=== PATIENT | female | born 1985 | race Caucasian/White ===

== ENCOUNTER 2022-07-05 22:44 | Emergency (ER) | payer MEDICAID, SELFPAY ==
[2022-07-05 22:52] VITALS: BP 136/92; PULSE 85; RESP 16; TEMP 36.9; O2SAT 98; BMI 34.4
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
[2022-07-06] MEDS: LORazepam 2 MG/ML inj 0.5 MG IVP (00:33)
[2022-07-06] MEDS: KETOROLAC 15 MG/ML inj IVP (00:34)
[2022-07-06] MEDS: 0.9 % SODIUM CHLORIDE 1000 ml 1,000 ML IV (00:34)
[2022-07-06 00:36] LABS: Basophils Percent Auto 0.6 % (0.0-3.0); Eosinophils Percent Auto 2.2 % (0.0-7.0); Hemoglobin* 12.7 gm/dL (12.0-16.0); Immature Granulocytes Abs Auto 0.08 K/uL (0.00-0.30); Lymphocytes Percent Auto 32.7 % (20-44); Mean Corpuscular HGB Conc 32 gm/dL (32-36); Mean Corpuscular Hemoglobin 28 pg (26-34); Mean Corpuscular Volume 87 fL (80-100); Monocytes Percent Auto 7.5 % (0.0-11.0); Neutrophils Percent Auto 56.4 % (42.0-72.0); Platelet Count* 356 K/uL (140-440); RDW Coefficient of Variation % 13.1 % (11.5-15.5); Red Blood Count 4.58 m/uL (4.00-5.20); White Blood Count* 12.39 K/uL (4.50-11.00)
[2022-07-06 00:37] LABS: Appearance Urine Clear (Clear); Bilirubin Urine Negative (Negative); Blood Urine Negative (Negative); Color Urine Yellow (Yellow); Glucose Urine Negative (Negative); Ketones Urine Negative (Negative); Leukocyte Esterase Urine Negative (Negative); Nitrite Urine Negative (Negative); Protein Urine Negative (Negative); Urobilinogen Urine 0.2 (0.2-1.0); pH Urine 6.5 (5.0-8.5)
[2022-07-06 00:38] LABS: Slide Review Reflex No
[2022-07-06 00:45] LABS: Chloride* 103 mmol/L (96-114); Sodium* 140 mmol/L (135-149)
[2022-07-06 00:48] LABS: Blood Urea Nitrogen* 10 mg/dL (5-24); Calcium* 9.5 mg/dL (8.4-10.6); Carbon Dioxide* 28 mmol/L (20-32); Creatinine* 0.7 mg/dL (0.5-1.5); Est. Creatinine Clearance* 104.01; Estimated Glomerular Filt Rate 115 ml/min; Glucose* 94 mg/dL (60-115)
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
[2022-07-06 02:10] LABS: Albumin* 4.2 g/dL (3.3-5.0); Bilirubin Total* 0.1 mg/dL (0.1-1.5); Total Protein* 7.2 g/dL (6.0-8.3)
[2022-07-06 02:11] LABS: Alanine Aminotransferase* 25 U/L (4-35); Alkaline Phosphatase* 85 U/L (40-150); Amylase* 49 U/L (18-89); Aspartate Amino Transferase* 33 U/L (12-35); Bilirubin Direct* 0.1 mg/dL (0.0-0.5); Lipase* 52 U/L (23-300)
[2022-07-06 03:02] VITALS: BP 128/88; PULSE 85; RESP 16; TEMP 36.9
== END 2022-07-06 03:03 | disposition home or self-care (01) ==
PROVIDERS: Emergency Provider Family Medicine; PCP Family Medicine
DX: R07.81 Pleurodynia (principal); K86.2 Cyst of pancreas; K80.20 Calculus of gallbladder without cholecystitis without obstruction
CPT/HCPCS: 36415; 71260; 74177; 80048; 80076; 81003; 82150; 83690; 85025; 96374; 96375; 99284; J1885; J2060; J7030; Q9967

== ENCOUNTER 2022-08-02 10:27 | Emergency (ER) | payer MEDICAID, SELFPAY ==
[2022-08-02 10:32] VITALS: BP 124/80; PULSE 81; RESP 18; TEMP 36.6; O2SAT 100; BMI 34.1
--- NOTE | 2022-08-02 11:19 | ED.NURSE ---
pt updated in waiting room
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
[2022-08-02] MEDS: 0.9 % SODIUM CHLORIDE 1000 ml 1,000 ML IV (13:11)
[2022-08-02 13:32] LABS: Albumin* 4.7 g/dL (3.3-5.0)
[2022-08-02 13:35] LABS: Alkaline Phosphatase* 79 U/L (40-150); Aspartate Amino Transferase* 29 U/L (12-35); Bilirubin Direct* 0.2 mg/dL (0.0-0.5); Bilirubin Total* 0.4 mg/dL (0.1-1.5); Lipase* 38 U/L (23-300); Total Protein* 7.6 g/dL (6.0-8.3)
[2022-08-02 13:36] LABS: Alanine Aminotransferase* 21 U/L (4-35)
[2022-08-02 13:41] LABS: Basophils Percent Auto 0.4 % (0.0-3.0); Eosinophils Percent Auto 0.5 % (0.0-7.0); Hematocrit 41.2 % (33.0-51.0); Hemoglobin* 13.3 gm/dL (12.0-16.0); Immature Granulocytes Abs Auto 0.02 K/uL (0.00-0.30); Lymphocytes Percent Auto 16.3 % (20-44); Mean Corpuscular HGB Conc 32 gm/dL (32-36); Mean Corpuscular Hemoglobin 28 pg (26-34); Mean Corpuscular Volume 86 fL (80-100); Monocytes Percent Auto 6.7 % (0.0-11.0); Neutrophils Percent Auto 75.9 % (42.0-72.0); Platelet Count* 358 K/uL (140-440); RDW Coefficient of Variation % 13.6 % (11.5-15.5); Red Blood Count 4.77 m/uL (4.00-5.20); White Blood Count* 12.21 K/uL (4.50-11.00)
[2022-08-02 13:50] LABS: Slide Review Reflex No
[2022-08-02] MEDS: KETOROLAC 30 MG/ML inj IVP (13:55)
[2022-08-02] MEDS: HYDROmorphone 0.5 mg/0.5 ml inj IVP (13:57)
[2022-08-02 14:01] VITALS: BP 130/81
[2022-08-02 14:50] LABS: Chloride* 106 mmol/L (96-114); Potassium* 3.5 mmol/L (3.6-5.1); Sodium* 139 mmol/L (135-149)
[2022-08-02 14:53] LABS: Blood Urea Nitrogen* 10 mg/dL (5-24); Carbon Dioxide* 24 mmol/L (20-32); Creatinine* 0.7 mg/dL (0.5-1.5); Est. Creatinine Clearance* 104.01; Estimated Glomerular Filt Rate 115 ml/min; Glucose* 97 mg/dL (60-115)
[2022-08-02 14:54] LABS: Calcium* 9.5 mg/dL (8.4-10.6)
--- NOTE | 2022-08-05 09:12 | ED.NURSE ---
Pt calling and requesting a note to return work from Dr Zavala. Call was transferred to Dr Zavala per his OK.
== END 2022-08-02 14:56 | disposition home or self-care (01) ==
PROVIDERS: Emergency Provider Family Medicine
DX: S06.0X1A Concussion with loss of consciousness of 30 minutes or less, initial encounter (principal); S03.40XA Sprain of jaw, unspecified side, initial encounter; S00.83XA Contusion of other part of head, initial encounter; W01.0XXA Fall on same level from slipping, tripping and stumbling without subsequent striking against object, initial encounter; Y93.01 Activity, walking, marching and hiking; Y92.012 Bathroom of single-family (private) house as the place of occurrence of the external cause; Y99.9 Unspecified external cause status
CPT/HCPCS: 36415; 70450; 70486; 72125; 80048; 80076; 83690; 85025; 96361; 96374; 96375; 99283; 99284; J1170; J1885; J7030

== ENCOUNTER 2022-10-29 11:46 | Outpatient (CLI) | payer MEDICAID, SELFPAY ==
[2022-10-29 15:59] LABS: Chlamydia DNA Amplified* NOT DETECTED (No Detected); GC DNA Amplified* NOT DETECTED (No Detected)
== END 2022-10-29 11:47 | disposition home or self-care (01) ==
PROVIDERS: PCP Family Medicine; Visit Provider Registered Nurse
DX: N94.9 Unspecified condition associated with female genital organs and menstrual cycle
CPT/HCPCS: 87086; 87491; 87591

== ENCOUNTER 2023-02-08 15:25 | Emergency (ER) | payer MEDICAID, SELFPAY ==
[2023-02-08 15:51] VITALS: BP 124/82; PULSE 119; RESP 18; TEMP 36.9; O2SAT 99; BMI 34.5
[2023-02-08 17:08] LABS: Basophils Absolute Auto 0.06 K/uL (0.00-0.30); Basophils Percent Auto 0.8 % (0.0-3.0); Eosinophils Absolute Auto 0.11 K/uL (0.00-0.50); Eosinophils Percent Auto 1.4 % (0.0-7.0); Hematocrit 35.7 % (33.0-51.0); Hemoglobin* 10.4 gm/dL (12.0-16.0); Immature Granulocytes Abs Auto 0.01 K/uL (0.00-0.30); Immature Granulocytes Pct Auto 0.1 %; Lymphocytes Absolute Auto 1.85 K/uL (0.90-2.90); Lymphocytes Percent Auto 24.1 % (20-44); Mean Corpuscular HGB Conc 29 gm/dL (32-36); Mean Corpuscular Hemoglobin 23 pg (26-34); Mean Corpuscular Volume 78 fL (80-100); Neutrophils Absolute Auto 4.58 K/uL (1.7-7.0); Neutrophils Percent Auto 59.6 % (42.0-72.0); Platelet Count* 311 K/uL (140-440); RDW Coefficient of Variation % 14.2 % (11.5-15.5); Red Blood Count 4.59 m/uL (4.00-5.20); White Blood Count* 7.69 K/uL (4.50-11.00)
[2023-02-08] MEDS: 0.9 % SODIUM CHLORIDE 1000 ml 1,000 ML IV (17:08)
[2023-02-08] MEDS: ONDANSETRON 2 MG/ML inj 4 MG IVP (17:09)
[2023-02-08 17:10] LABS: Slide Review Reflex No
[2023-02-08] MEDS: KETOROLAC 30 MG/ML inj IVP (17:10)
[2023-02-08 17:20] LABS: Chloride* 106 mmol/L (96-114)
[2023-02-08 17:21] LABS: Albumin* 4.1 g/dL (3.3-5.0); Potassium* 3.9 mmol/L (3.6-5.1); Sodium* 139 mmol/L (135-149)
[2023-02-08 17:23] LABS: Creatinine* 0.7 mg/dL (0.5-1.5); Est. Creatinine Clearance* 103.01; Estimated Glomerular Filt Rate 114 ml/min
[2023-02-08 17:23] LABS: Lactate* 0.5 mmol/L (0.5-1.9)
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
[2023-02-08 17:24] LABS: Alanine Aminotransferase* 22 U/L (4-35); Alkaline Phosphatase* 63 U/L (40-150); Aspartate Amino Transferase* 24 U/L (12-35); Bilirubin Total* 0.3 mg/dL (0.1-1.5); Blood Urea Nitrogen* 14 mg/dL (5-24); Carbon Dioxide* 30 mmol/L (20-32); Glucose* 96 mg/dL (60-115)
[2023-02-08 17:25] LABS: Calcium* 9.4 mg/dL (8.4-10.6)
[2023-02-08 17:27] LABS: C Reactive Protein* 0.8 mg/dL (0.5-1.0)
[2023-02-08 17:38] LABS: Amylase* 56 U/L (18-89); Bilirubin Direct* 0.2 mg/dL (0.0-0.5); Lipase* 75 U/L (23-300)
[2023-02-08 17:58] LABS: PCR FLU A Negative PCR FLU A (Negative); PCR FLU B Negative PCR FLU B (Negative); PCR RSV Negative PCR RSV (Negative)
[2023-02-08 18:04] LABS: SARS PCR* Negative SARS-CoV-2 (Negative)
[2023-02-09 11:45] LABS: C.Difficile Negative (Negative); CDIFFEPI 027 PRESUMPTIVE NEGATIVE (Negative)
[2023-02-11 16:16] LABS: Adenovirus PCR Not Detected; Astrovirus PCR Detected; Campylobacter PCR Not Detected; Cryptosporidium PCR Not Detected; Cyclospora cayetanensis PCR Not Detected; Entamoeba histolytica PCR Not Detected; Enteroaggregative E coli PCR Not Detected; Enteropathogenic E coli PCR Not Detected; Enterotoxigenic E coli PCR Not Detected; Giardia lamblia PCR Not Detected; Norovirus Gi/GII PCR Not Detected; Plesiomonas shig PCR Not Detected; Rotavirus A PCR Not Detected; Salmonella PCR Not Detected; Sapovirus PCR Not Detected; Shiga toxin E coli PCR Not Detected; Shigella/Enteroinvasive E coli Not Detected; Vibrio PCR Not Detected; Vibrio cholerae PCR Not Detected; Yersinia enterocolitica PCR Not Detected
== END 2023-02-08 18:36 | disposition home or self-care (01) ==
PROVIDERS: Student in an Organized Health Care Education/Training Program; Emergency Provider Family Medicine; PCP Internal Medicine
DX: R10.9 Unspecified abdominal pain (principal); R19.7 Diarrhea, unspecified; R11.10 Vomiting, unspecified
CPT/HCPCS: 36415; 80048; 80053; 80076; 81001; 82150; 82248; 83605; 83690; 85025; 86140; 87493; 87502; 87505; 87634; 87635; 96374; 96375; 99283; 99284; J1885; J2405; J7030

== ENCOUNTER 2023-02-15 22:40 | Emergency (ER) | payer MEDICAID, SELFPAY ==
[2023-02-15] VITALS (8 sets, daily range): BP systolic 119–144; BP diastolic 68–89; PULSE 56–78; RESP 16–18; TEMP 36.6; O2SAT 97–100; BMI 34.7
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
[2023-02-15] MEDS: 0.9 % SODIUM CHLORIDE 1000 ml 1,000 ML IV (23:12)
[2023-02-15] MEDS: ONDANSETRON 2 MG/ML inj 4 MG IVP (23:13)
[2023-02-15] MEDS: HYDROmorphone 0.5 mg/0.5 ml inj IVP ×2 (23:13→23:42)
[2023-02-15 23:26] LABS: Basophils Percent Auto 0.6 % (0.0-3.0); Eosinophils Percent Auto 1.9 % (0.0-7.0); Hematocrit 35.8 % (33.0-51.0); Hemoglobin* 10.6 gm/dL (12.0-16.0); Immature Granulocytes Pct Auto 0.9 %; Lymphocytes Percent Auto 24.2 % (20-44); Mean Corpuscular HGB Conc 30 gm/dL (32-36); Mean Corpuscular Hemoglobin 23 pg (26-34); Mean Corpuscular Volume 77 fL (80-100); Neutrophils Percent Auto 65.4 % (42.0-72.0); Platelet Count* 342 K/uL (140-440); RDW Coefficient of Variation % 14.3 % (11.5-15.5); Red Blood Count 4.64 m/uL (4.00-5.20); White Blood Count* 11.06 K/uL (4.50-11.00)
[2023-02-15 23:30] LABS: Slide Review Reflex No
[2023-02-15 23:34] LABS: Albumin* 4.2 g/dL (3.3-5.0); Chloride* 106 mmol/L (96-114)
[2023-02-15 23:35] LABS: Potassium* 3.8 mmol/L (3.6-5.1); Sodium* 138 mmol/L (135-149)
--- NOTE | 2023-02-15 23:35 | ED.NURSE ---
Patient reports increased pain. MD notified.
[2023-02-15 23:37] LABS: Alkaline Phosphatase* 90 U/L (40-150); Aspartate Amino Transferase* 22 U/L (12-35); Bilirubin Total* 0.1 mg/dL (0.1-1.5); Blood Urea Nitrogen* 13 mg/dL (5-24); Carbon Dioxide* 27 mmol/L (20-32); Creatinine* 0.6 mg/dL (0.5-1.5); Est. Creatinine Clearance* 120.18; Estimated Glomerular Filt Rate 118 ml/min; Glucose* 129 mg/dL (60-115); Total Protein* 7.2 g/dL (6.0-8.3)
[2023-02-15 23:38] LABS: Alanine Aminotransferase* 20 U/L (4-35); Lipase* 91 U/L (23-300)
[2023-02-16] VITALS (10 sets, daily range): BP systolic 106–117; BP diastolic 54–73; PULSE 59–83; RESP 16; O2SAT 97–100
[2023-02-16] MEDS: GI COCKTAIL (VISC LIDO/ANTACID) 30 ML PO
[2023-02-16] MEDS: KETOROLAC 30 MG/ML inj IVP (00:02)
--- NOTE | 2023-02-16 00:08 | CRLHL7_ITS ---
For Patients: As a result of the Century Cures Act, medical imaging exams and procedure reports are released immediately into your electronic medical record. You may view this report before your referring provider. If you have questions, please contact your health care provider. INDICATION: Abdominal pain. TECHNIQUE: CT abdomen and pelvis acquired with 100 cc Isovue 370 IV contrast. COMPARISON: 07/06/2022. FINDINGS: Lower chest: Unremarkable. Liver: Unremarkable. Normal in size and attenuation. No suspicious masses. Gallbladder and bile ducts: Cholelithiasis. No inflammation. Mild dilation of the common bile duct measuring 9 mm. Spleen: Unremarkable. Normal in size. No masses. Adrenal glands: Stable 2 cm right adrenal nodule (series 2, image 45). Left adrenal gland is unremarkable. Pancreas: Coarse calcifications in the pancreatic tail. Decreased size of previously seen associated low density lesion. Kidneys: Left renal upper pole cortical scarring with dystrophic calcification, unchanged. No radiopaque stones or hydronephrosis. GI tract: Unremarkable. Normal in caliber. Appendix is surgically absent. Lymph nodes: No lymphadenopathy. Vasculature: Unremarkable. Omentum/Peritoneum/Abdominal Wall: Unremarkable. No sign of mass or infiltration. No free air or significant free fluid. Pelvis: Unremarkable. Bones: Unremarkable for age. IMPRESSION: 1. No acute abdominal or pelvic abnormality. 2. Cholelithiasis. 3. Mild dilation of the common bile duct measuring 9 mm. 4. Stable right adrenal nodule. 5. Pancreatic tail calcifications with decreased size of previously seen associated low density lesion, likely sequela of prior pancreatitis. Please note that all CT scans at this facility use dose modulation, iterative reconstruction, and/or weight-based dosing when appropriate to reduce radiation dose to as low as reasonably achievable. Dictated by Jah Morgan MD @ 02/16/2023 1:40:18 AM (Electronically Signed)
--- NOTE | 2023-02-16 00:08 | ED.NURSE ---
Patient reports some improvement after GI cocktail.
[2023-02-16] MEDS: OMEPRAZOLE 20 MG CAPSULE DR PO (01:52)
== END 2023-02-16 02:12 | disposition home or self-care (01) ==
PROVIDERS: Emergency Provider Emergency Medicine Emergency Medical Services; PCP Internal Medicine
DX: K80.20 Calculus of gallbladder without cholecystitis without obstruction (principal)
CPT/HCPCS: 36415; 74177; 76705; 80048; 80076; 83690; 85025; 96374; 96375; 96376; 99284; A9270; J1170; J1885; J2405; J7030; Q9967

== ENCOUNTER 2023-02-16 14:00 | Outpatient (CLI) | payer MEDICAID, SELFPAY | END 2023-02-16 14:01 | disposition home or self-care (01) | PROVIDERS: PCP Internal Medicine; Visit Provider Registered Nurse | DX: R30.0 Dysuria (principal); N89.8 Other specified noninflammatory disorders of vagina | CPT/HCPCS: 87086 ==

== ENCOUNTER 2023-05-09 18:00 | Emergency (ER) | payer MEDICAID, SELFPAY | END 2023-05-09 19:11 | disposition home or self-care (01) | PROVIDERS: Emergency Provider Family Medicine; PCP Internal Medicine | DX: Z53.21 Procedure and treatment not carried out due to patient leaving prior to being seen by health care provider (principal) ==

== ENCOUNTER 2023-06-07 09:48 | Outpatient (CLI) | payer MEDICAID, SELFPAY | END 2023-06-07 09:49 | disposition home or self-care (01) | PROVIDERS: PCP Internal Medicine; Visit Provider Internal Medicine | DX: E04.1 Nontoxic single thyroid nodule (principal); F32.A Depression, unspecified | CPT/HCPCS: 80053; 84443 ==

== ENCOUNTER 2023-08-06 15:36 | Emergency (ER) | payer MEDICAID, SELFPAY ==
[2023-08-06 15:47] VITALS: RESP 16; O2SAT 99
[2023-08-06 15:48] VITALS: BP 132/74; PULSE 110; RESP 18; TEMP 37.6; O2SAT 99; BMI 30.7
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
[2023-08-06 16:42] LABS: Basophils Percent Auto 0.1 % (0.0-3.0); Hematocrit 41.3 % (33.0-51.0); Hemoglobin* 12.3 gm/dL (12.0-16.0); Mean Corpuscular HGB Conc 30 gm/dL (32-36); Mean Corpuscular Hemoglobin 23 pg (26-34); Mean Corpuscular Volume 78 fL (80-100); Monocytes Percent Auto 7.4 % (0.0-11.0); Neutrophils Percent Auto 84.5 % (42.0-72.0); Platelet Count* 297 K/uL (140-440); RDW Coefficient of Variation % 17.8 % (11.5-15.5); Red Blood Count 5.28 m/uL (4.00-5.20); White Blood Count* 11.36 K/uL (4.50-11.00)
[2023-08-06 16:45] LABS: Slide Review Reflex No
[2023-08-06 16:52] LABS: Albumin* 4.3 g/dL (3.3-5.0); Chloride* 102 mmol/L (96-114); Sodium* 138 mmol/L (135-149)
[2023-08-06 16:54] LABS: Anion Gap 7 mEq/L (7-15); Carbon Dioxide* 29 mmol/L (20-32); Creatinine* 0.7 mg/dL (0.5-1.5); Est. Creatinine Clearance* 103.01; Estimated Glomerular Filt Rate 114 ml/min
[2023-08-06 16:55] LABS: Alanine Aminotransferase* 20 U/L (4-35); Alkaline Phosphatase* 68 U/L (40-150); Aspartate Amino Transferase* 22 U/L (12-35); Bilirubin Direct* 0.1 mg/dL (0.0-0.5); Bilirubin Total* 0.4 mg/dL (0.1-1.5); Blood Urea Nitrogen* 16 mg/dL (5-24); Calcium* 9.5 mg/dL (8.4-10.6); Glucose* 116 mg/dL (60-115); Total Protein* 7.5 g/dL (6.0-8.3)
[2023-08-06 17:06] LABS: Strep A DNA Probe* NOT DETECTED (Not Detectd)
[2023-08-06 17:26] VITALS: BP 128/80; PULSE 88; RESP 16; TEMP 36.5; O2SAT 96
== END 2023-08-06 17:27 | disposition home or self-care (01) ==
PROVIDERS: Emergency Provider Emergency Medicine Emergency Medical Services; PCP Internal Medicine
DX: R41.0 Disorientation, unspecified (principal); T41.295A Adverse effect of other general anesthetics, initial encounter
CPT/HCPCS: 36415; 80048; 80076; 85025; 87651; 99283; 99284

== ENCOUNTER 2023-09-14 13:40 | Outpatient (CLI) | payer MEDICAID, SELFPAY | END 2023-09-14 13:41 | disposition home or self-care (01) | LOC: NFLDREF 09-15 01:36 | PROVIDERS: PCP Internal Medicine; Referring Provider Internal Medicine; Visit Provider Advanced Practice Midwife | DX: N89.8 Other specified noninflammatory disorders of vagina (principal); F32.A Depression, unspecified; B37.9 Candidiasis, unspecified; Z11.3 Encounter for screening for infections with a predominantly sexual mode of transmission | CPT/HCPCS: 86592; 86703; 86706; 86803; 87086; 87340; 87491; 87591 ==

== ENCOUNTER 2023-11-19 15:57 | Emergency (ER) | payer MEDICAID, SELFPAY ==
[2023-11-19 16:14] VITALS: BP 107/73; PULSE 87; RESP 16; TEMP 36.6; O2SAT 98; BMI 29.1
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
== END 2023-11-19 17:11 | disposition home or self-care (01) ==
LOC: ED 17:08
PROVIDERS: Emergency Provider Emergency Medicine Emergency Medical Services; PCP Internal Medicine
DX: G47.00 Insomnia, unspecified (principal); R53.83 Other fatigue
CPT/HCPCS: 99283; 99284

== ENCOUNTER 2023-12-05 11:30 | Outpatient (CLI) | payer MEDICAID, SELFPAY ==
--- OUTSIDE RECORDS SUMMARY | 2023-12-05 11:51 | XMS_ITS | Encounter Summary ---
Author Name Unknown Organization [facility] Address [address] [place] [id number] Care Team Providers Care Orange Grower Name Role Phone Unavailable Primary Care Provider Unavailabl e Reason for Visit * Reason Comments Syncope Fall Head Injury Encounter Details Date Type Department Care Team (Late st Contact Info) Description 06/26/2023 6:28 PM CDT - 06/26/2023 9:22 PM CDT Emergency Emergency Department [address] [place] [phone] Joseph Breen P.A.-C. [address] [place] [id number] Injury Head Initial (Primary Dx); Syncope And Near Syncope Discharge Disposition: Home or Self Care Social History Tobacco Use Types Packs/Day Years Used Date Smoking Tobacco: Never Smokeless Tobacco: Never Tobacco Cessation:Counseling Given: Not Answered Alcohol Use Standard Drinks/Week Comments Yes 0 (1 standard drink = 0.6 oz pur e alcohol) 1x month Humiliation, Afraid, Rape, and Kick questionnair e Answer Date Recorded Within the last year, have y ou been afraid of your partner or ex-partner? No 03/24/2023 Within the last year, have y ou been humiliated or emotionally abused in other ways by your partner or ex-partner? No Within the last year, have y ou been kicked, hit, slapped, or otherwise physically hurt by your partner or ex-partner? No 03/24/2023 Within the last year, have y ou been raped or forced to have any kind of sexual activity by your partner or ex-partner? No 03/24/2023 Social Connection and Isolat ion Panel [NHANES] Answer Date Recorded In a typical week, how many times do you talk on the phone with family, friends, or neighbors? More than three times a week 03/24/2023 How often do you get togethe r with friends or relatives? Twice a week 03/24/2023 Attends [employer] Services Not on file 03/24 Do you belong to any clubs o r organizations such as rastafarian groups, unions, [employer] or athletic groups, or school groups? No 03/24/2023 Attends Club or Organization Meetings Not on aj e 03/24/2023 Are you , , di vorced, , never , or living with a partner? 03/24/2023 Overall Financial Resource Strain (CARDIA) Answe r Date Recorded How hard is it for you to pa y for the very basics like food, housing, medical care, and heating? Patient declined 03/24/2023 [facility] - Occupational Stress Questionnaire Answer Date Recorded Do you feel stress - tense, restless, nervous, or anxious, or unable to sleep at night because your mind is troubled all the time - these days? Very much 03/24/2023 Exercise Vital Sign Answer Date Recorde d On average, how many days pe r week do you engage in moderate to strenuous exercise (like a brisk walk)? 5 days 03/24/2023 On average, how many minutes do you engage in exercise at this level? 50 min 03/24/2023 Hunger Vital Sign Answer Date Recorded Within the past 12 months, y ou worried that your food would run out before you got the money to buy more. Patient declined Within the past 12 months, t he food you bought just didn't last and you didn't have money to get more. Patient declined 02/2023 PRAPARE - Transportation Answer Date Re corded In the past 12 months, has l ack of transportation kept you from medical appointments or from getting medications? No 03/24/2023 In the past 12 months, has l ack of transportation kept you from meetings, work, or from getting things needed for daily living? Patient declined 03/24/2023 Housing Stability Vital Sign Answer Jose e Recorded In the last 12 months, was t here a time when you were not able to pay the mortgage or rent on time? Patient refused 03/24/20 23 Number of Places Lived in the Last Year Not on f ile 03/24/2023 Unstable Housing in the Last Year Not on file 03/24/2023 Nutrition Answer Date Recorded Nutrition: EVOO Fat Source No 03/24 On average, how many serving s of fruits and vegetables do you eat per day (serving size is equal to 1 cup or approximately the size of a tennis ball)? 2-3 03/24/2023 Dental Answer Date Recorded Dental: Regular Dentist Yes 03/24/20 Employment Answer Date Recorded Employment status Employed and actively working without restrictions 03/24/2023 Education Answer Date Recorded What is the highest level of school you have completed or the highest degree you have received? Some college, no degree 03/24/2023 Sex and Gender Information Value Date Recorded Sex Assigned at Female 03/24/2023 9:03 AM CDT Gender Identity Female 03/24/2023 9:03 AM CDT Sexual Orientation Choose not to disclose 2022 9:03 AM CDT documented as of this encounter Last Filed Vital Signs Vital Sign Reading Time Taken Comments Blood Pressure 141/83 06/26/2023 9:00 PM CDT Pulse 85 06/26/2023 9:00 PM CDT Temperature 37.5 ??C (99.5 ??F) 06/26/2023 6:04 PM CD T Respiratory Rate 16 06/26/2023 6:04 PM CDT Oxygen Saturation 98% 06/26/2023 9:00 PM CDT Inhaled Oxygen Concentration - - Weight - - Height - - Body Mass Index - - documented in this encounter Discharge Instructions * Discharge Instructions* Joseph Breen, PAmarisAFredy. - 06/26/2023 9:09 PM CDT Have keep wound clean and dry. Follow-up with primary care as needed. Return to ED for new worsening or concerning signs or symptoms. Sutures are dissolvable and do not need to be removed * Attachments The following attachments cannot be sent through Care Everywhere. * Syncope Adult Lfna-lj-Owhf (Belarusian) * Head Injury Adult Dfwo-uc-Vhpt (Belarusian) documented in this encounter Medications at Time of Discharge Medication Sig Dispensed Refills Start Date End Date ALPRAZolam (XANAX) 0.5 mg tablet Take 1 mg by mouth as needed. 0 10/28/2022 escitalopram (LEXAPRO) 5 mg tablet Take 5 mg by mouth daily. 5 to 10 mg daily 0 finasteride (PROSCAR) 5 mg tablet Take 2.5 mg by mouth daily. 0 03/09/2023 HYDROmorphone (DILAUDID) 2 mg tabletIndications:Acute Pain Take 1 tablet (2 mg total) by mouth every 4 (four) hours as needed for pain Indication: Acute Pain. 8 tablet 0 05/06/2023 minoxidiL (LONITEN) 2.5 mg tablet Take 0.625 mg by mouth. 0 02/26/2022 minoxidiL (LONITEN) 2.5 mg tablet Take 2.5 mg by mouth daily. 0 11/02/2022 OLANZapine (ZyPREXA) 5 mg tablet Take 5 mg by mouth at bedtime. 0 phentermine (ADIPEX-P) 37.5 mg tablet Take 56.25 mg by mouth. 0 04/20/2022 topiramate (TOPAMAX) 25 mg tablet Take 25 mg by mouth 2 (two) times a day. 0 03/04/2023 valACYclovir (VALTREX) 1000 mg tablet Take 1,000 mg by mouth daily. 0 02/01/2023 documented as of this encounter ED Notes * Joseph Breen P.A.-C. - 06/26/2023 9:08 PM CDT SUBJECTIVE CHIEF COMPLAINT/REASON FOR VISIT Syncope, Fall, and Head Injury HISTORY OF PRESENT ILLNESS Patient is a very pleasant 37-year-old female who presents today after a syncopal episode and head injury. Patient states that she is feeling panicky today. This is not unusual for and she is frequent panic attacks. She states she felt her breathing increasing she began hyperventilating. She statesthat shortly after that she passed out and fell to the ground. She struck her head on the toilet asshe was in the bathroom at the time. She is no neck or back pain. She is no chest pain or shortnessof breath she is no abdominal pain. History provided by: Patient, relative and medical records REVIEW OF SYSTEMS Constitutional: Negative for chills and diaphoresis. HENT: Negative for congestion and trouble swallowing. Eyes: Negative for photophobia and visual disturbance. Respiratory: Negative for cough and shortness of breath. Cardiovascular: Negative for chest pain and palpitations. Gastrointestinal: Negative for abdominal pain and vomiting. Genitourinary: Negative for dysuria, flank pain and frequency. Musculoskeletal: Negative for joint swelling and myalgias. Skin: Negative for lesions and rash. Neurological: Positive for headaches. Negative for dizziness. Psychiatric/Behavioral: Negative for agitation and confusion. OBJECTIVE Initial Vitals Temperature 06/26/23 1804 37.5 ??C Pulse Rate 06/26/23 1804 91 Heart Rate -- Resp Rate 06/26/23 1804 16 Blood Pressure 06/26/23 1804 130/85 SpO2 06/26/23 1804 95 % Pain Score 06/26/23 1844 10 - Worst possible pain PHYSICAL EXAMINATION Constitutional: Nursing note and vitals reviewed. No distress. HENT: Head: Normocephalic. Nose: No nasal discharge. Mouth/Throat: Oropharynx is clear and moist. Mucous membranes are moist. Patient with a contusion on her forehead. Patient has a 2 cm laceration of above the hairline on her frontal scalp Eyes: Conjunctivae are normal. Pupils are equal, round, and reactive to light. Neck: Neck supple. No neck adenopathy. Cardiovascular: Normal rate and regular rhythm. Pulses are strong and palpable. Pulmonary/Chest: Effort normal. Abdominal: Soft. exhibits no distension. There is no guarding. Musculoskeletal: General: No edema. Normal range of motion. Cervical back: Normal range of motion and neck supple. Neurological: Alert and oriented to person, place, and time. She is not disoriented. Skin: Skin is warm and dry. She is not diaphoretic. Psychiatric: She has a normal mood and affect. Behavior is normal. ASSESSMENT/PLAN Assessment and Plan Patient is a very pleasant 37-year-old female who presents today after his syncope. Patient states she became feeling quite anxious, which is not particularly unusual for her. She was hyperventilating and passed out. When she fell she struck her head on the toilet. On exam she is a 2 cm laceration above the hairline on her scalp. She has contusion on her forehead. She is no neck or back tenderness to palpation. She is no obvious trauma in the chest abdomen pelvis upper or lower extremity. She is no tenderness to palpation. EKG shows a normal sinus rhythm without evidence of arrhythmia ischemia Brugada or WPW. While awaiting head CT raises patient became anxious in the emergency department. She tachypneic but able to defensive line coach her on her breathing. She stable vital signs throughout and no arrhythmia. She responded well to a mg of Ativan. Abdomen is soft and she has intact movement of all extremities. We have obtained a head CT which demonstrates no intracranial abnormality as well as a chest x- ray which is negative. Scalp laceration has been closed with 5 dissolvable sutures. Patient is resting comfortably hemodynamically stable and is stable for discharge home. She is to return as needed for new worsening or concerning signs or symptoms. DIFFERENTIAL DIAGNOSES Arrhythmia, hyperventilation, syncope, among others. PROBLEMS ADDRESSED THIS VISIT Head injury. Final Diagnoses: as of 06/26/232108 Injury Head Initial Syncope And Near Syncope My Plain Films interpretation is documented in ED Course. My CT Scan interpretation is documented in ED Course. Joseph Breen P.A.-C. 06/26/232112 * Liane Breen R.N. - 06/26/2023 6:15 PM CDT Presents with a large frontal head laceration after having a syncopal episode and landing on her head. States she was having one of the worst panic attacks imaginable, vomited, then passed out, woke up, vomited more. States she is under a lot of stress having seven kids and PTSD. Liane Breen R.N. 06/26/230 Liane Breen R.N. 06/26/23 185 documented in this encounter Plan of Treatment Scheduled Orders Name Type Priority Associated Diagnoses Orde r Schedule ECG 12 Lead ECG STAT Once for 1 Oc currences starting 06/26/2023 until 06/26/2023 documented as of this encounter Procedures Procedure Name Priority Date/Time Associated Diagnosis Comments DX CHEST AP OR PA AND LATERAL 2 VIEWS RAD - Semiurgent (Fast; most ED patients; some inpatients) 06/26/2023 8:[address] HEAD WITHOUT IV CONTRAST RAD - Semiurgent (Fast; most ED patients; some inpatients) 06/26/2023 7:32 PM CDT HEPATIC FUNCTION PANEL, S STAT 06/26/2023 6:58 PM CDT PROTHROMBIN TIME (PT), P STAT 06/26/2023 6:58 PM CDT HUMAN CHORIONIC GONADOTROPIN (HCG), KELLY, STAT 06/26/2023 6:58 PM CDT THYROID-STIMULATING HORMONE-SENSITIVE (S-TSH) STAT 06/26/2023 6:58 PM CDT LIPASE, S/P STAT 06/26/2023 6:58 PM CDT LACTATE, B/P STAT 06/26/2023 6:58 PM CDT BASIC METABOLIC PANEL, S/P STAT 06/26/2023 6:58 PM CDT CBC WITH DIFFERENTIAL, B STAT 06/26/2023 6:57 PM CDT ECG STAT 06/26/2023 6:10 PM CDT documented in this encounter Results * DX Chest AP or PA and Lateral 2 Views (06/26/2023 8:06 PM CDT) Anatomical Region Laterality Modality Chest, Thoracic RST LOS, Tho racic ARZ LOS, Thoracic FLA LOS N/A Digital Radiography 06/26/2023 8:13 PM CDT Impressions 06/26/2023 8:30 PM CDT Negative chest. No significant change since 03/09/2016. Narrative 06/26/2023 8:30 PM CDT EXAM: ??DX CHEST AP OR PA AND LATERAL 2 VIEWS Procedure Note Carson Paniagua M.D. - 06/26/2023 EXAM: DX CHEST AP OR PA AND LATERAL 2 VIEWS IMPRESSION: Negative chest. No significant change since 03/09/2016. Joseph Breen P.A.-C. IMG DIAGNOSTIC IM AGING PROCEDURES * CT Head without IV Contrast (06/26/2023 7:32 PM CDT) Anatomical Region Laterality Modality Head, Neuroradiology RST LOS , Neuroradiology ARZ LOS, Neuroradiology FLA LOS N/A Computed Tomography, Compute d Tomography 06/26/2023 7:29 PM CDT Impressions 06/26/2023 8:[address] evidence of acute cerebral pathology. 2. No skull or facial fractures. 3. An air-fluid level within the left maxillary sinus is concerning for acute sinusitis. Narrative 06/26/2023 8:28 PM CDT EXAM: CT HEAD WITHOUT IV CONTRAST COMPARISON: MRI brain 12/30/2016; CT head 01/05/2017. FINDINGS: The brain is normal on the basis of noncontrast CT. No intracranial hemorrhage or evidence of acute infarction. No mass effect, extra-axial fluid collection, or hydrocephalus. There is a small subgaleal hematoma and probable laceration of the frontal scalp. No underlying fracture at this location or elsewhere within the calvarium or face. There is nonspecific thickening of the calvarium. Moderate mucosal thickening of the left maxillary sinus with a superimposed air- fluid level that is concerning for acute sinusitis. Elsewhere, there are scattered mild paranasal sinus inflammatory changes. The mastoid air cells are well aerated. Procedure Note Manolo Crews M.D. - 06/26/2023 EXAM: CT HEAD WITHOUT IV CONTRAST COMPARISON: MRI brain 12/30/2016; CT head 01/05/2017. FINDINGS: The brain is normal on the basis of noncontrast CT. No intracranialhemorrhage or evidence of acute infarction. No mass effect, extra-axial fluid collection, orhydrocephalus. There is a small subgaleal hematoma and probable laceration of the frontalscalp. No underlying fracture at this location or elsewhere within the calvarium or face. Thereis nonspecific thickening of the calvarium. Moderate mucosal thickening of the left maxillary sinus with asuperimposed air- fluid level that is concerning for acute sinusitis. Elsewhere, there are scattered mildparanasal sinus inflammatory changes. The mastoid air cells are well aerated. IMPRESSION: 1. No CT evidence of acute cerebral pathology. 2. No skull or facial fractures. 3. An air-fluid level within the left maxillary sinus is concerning foracute sinusitis. Joseph Breen P.A.-C. IMG CT PROCEDURES * Hepatic Function Panel (06/26/2023 6:58 PM CDT) Bilirubin, Total, S <0.2 <=1.2 mg/dL 06/26/2023 7:58 PM CDT DTL Bilirubin, Direct, S <0.2 0.0 - 0.3 mg/dL 06/26/2023 7:58 PM CDT DTL Aspartate Aminotransferase (AST), S 22 8 - 43 U/L 06/26/2023 7:58 PM CDT DTL Alanine Aminotransferase (ALT), S 22 7 - 45 U/L 06/26/2023 7:58 PM CDT DTL Alkaline Phosphatase, S 70 35 - 104 U/L 06/26/2023 7:58 PM CDT DTL Albumin, S 4.2 3.5 - 5.0 g/dL 06/26/2023 7:58 PM CDT DTL Protein, Total, S 6.4 6.3 - 7.9 g/dL 06/26/2023 7:58 PM CDT DTL Blood (Blood, Venous) 06/26/2023 6:58 PM CDT 06/26/2023 7:32 PM CDT Joseph Breen P.A.-C. LAB BLOOD ADD-ON [facility] [address] [place], [place] [id number] [place] [address] 200 [place] [address] * Lipase (06/26/2023 6:58 PM CDT) Pathologist [facility] Lipase, S 53 13 - 60 U/L 06/26/2023 7: 58 PM CDT DTL Blood (Blood, Venous) 06/26/2023 6:58 PM CDT 06/26/2023 7:32 PM CDT Joseph Breen P.A.-C. LAB BLOOD ADD-ON [facility] [address] [place], [place] [id number] [place] [address] 200 [place] [address] * Lactate (06/26/2023 6:58 PM CDT) [facility] Lactate, P 2.2 0.5 - 2.2 mmol/L 06/26/2023 7:31 PM CDT [facility] Blood (Blood, Venous) 06/26/2023 6:58 PM CDT 06/26/2023 7:13 PM CDT Joseph Breen P.A.-C. LAB BLOOD NON ADD -ON [facility] [address] STMA [facility] [address] [place] [address] * (ABNORMAL) S-TSH (Thyroid-Stimulating Hormone - Sensitive) (06/26/2023 6:58 PM CDT) [facility] TSH, Sensitive 0.2(L) 0.3 - 4.2 mIU/L 06/26/2023 7:58 PM CDT DTL Blood (Blood, Venous) 06/26/2023 6:58 PM CDT 06/26/2023 7:32 PM CDT Primo Copeland M.D. LAB BLOOD ADD-ON [facility] [address] [place] [address], [facility] DTL [facility] [address] [place] [address] * hCG (Human Chorionic Gonadotropin), Quantitative, (06/26/2023 6:58 PM CDT) HCG, Quantitative, , P 1.0 <5 IU/L 06/26/2023 7:30 PM CDT [facility] Blood (Blood, Venous) 06/26/2023 6:58 PM CDT 06/26/2023 7:13 PM CDT Primo Copeland M.D. LAB BLOOD ADD-ON Performing Organization Address [facility]/ZIP Co de Phone Number [facility] [address] [place] [address], [facility] STMA [facility] [address] [place] [address] * Prothrombin Time (PT) (06/26/2023 6:58 PM CDT) Prothrombin Time, P 11.6 9.4 - 12.5 sec 06/26/2023 7:26 PM CDT [facility] INR 1.1 0.9 - 1.1 06/26/2023 7:26 PM CDT [facility] Comment: ----ADDITIONAL INFORMATION---- Standard intensity warfarin therapeutic range: 2.0 to 3.0 ?? High intensity warfarin therapeutic range: 2.5 to 3.5 Blood (Blood, Venous) 06/26/2023 6:58 PM CDT 06/26/2023 7:13 PM CDT Primo Copeland M.D. LAB BLOOD ADD-ON [facility] [address] [place] [address], [place] [facility] [address] [place] [address] * (ABNORMAL) Basic Metabolic Panel (06/26/2023 6:58 PM CDT) Pathologist [facility] Potassium, P 3.5(L) 3.6 - 5.2 mmol/L 06/26/2023 7:33 PM CDT [facility] Sodium, P 141 135 - 145 mmol/L 06/26/2023 7:33 PM CDT [facility] Chloride, P 108(H) 98 - 107 mmol/L 06/26/2023 7:33 PM CDT [facility] Bicarbonate, P 24 22 - 29 mmol/L 06/26/2023 7:33 PM CDT [facility] Anion Gap, P 9 7 - 15 06/26/2023 7:33 PM CDT [facility] BUN (Blood Urea Nitrogen), P 11 6 - 21 mg/dL 06/26/2023 7:33 PM CDT [facility] Creatinine 0.66 0.59 - 1.04 mg/dL 06/26/2023 7:33 PM CDT [facility] Estimated GFR (eGFR) >90 >=60 mL/min/BSA 06/26/2023 7:33 PM CDT [facility] Comment: Estimated GFR calculated using the 2020 CKD_EPI creatinine equation. Calcium, Total, P 9.2 8.6 - 10.0 mg/dL 06/26/2023 7:33 PM CDT [facility] Glucose, P 86 70 - 140 mg/dL 06/26/2023 7:33 PM CDT [facility] Blood (Blood, Venous) 06/26/2023 6:58 PM CDT 06/26/2023 7:13 PM CDT Primo Copeland M.D. LAB BLOOD ADD-ON [facility] [address] [place] [address], [place] [facility] [address] [place] [address] * (ABNORMAL) CBC with Differential, Blood (06/26/2023 6:57 PM CDT) [facility] Hemoglobin 9.9(L) 11.6 - 15.0 g/dL 06/26/2023 7:17 PM CDT [facility] Hematocrit 34.9(L) 35.5 - 44.9 % 06/26/2023 7:17 PM CDT [facility] Erythrocytes 4.71 3.92 - 5.13 x10(12)/L 06/26/2023 7:17 PM CDT [facility] MCV 74.1(L) 78.2 - 97.9 fL 06/26/2023 7:17 PM CDT [facility] RBC Distrib Width 15.9 12.2 - 16.1 % 06/26/2023 7:17 PM CDT [facility] Platelet Count 374(H) 157 - 371 x10(9)/L 06/26/2023 7:17 PM CDT [facility] Leukocytes 10.1(H) 3.4 - 9.6 x10(9)/L 06/26/2023 7:17 PM CDT [facility] Neutrophils 7.14(H) 1.56 - 6.45 x10(9)/L 06/26/2023 7:17 PM CDT [facility] Lymphocytes 1.83 0.95 - 3.07 x10(9)/L 06/26/2023 7:17 PM CDT [facility] Monocytes 0.92(H) 0.26 - 0.81 x10(9)/L 06/26/2023 7:17 PM CDT [facility] Eosinophils 0.18 0.03 - 0.48 x10(9)/L 06/26/2023 7:17 PM CDT [facility] Basophils 0.06 0.01 - 0.08 x10(9)/L 06/26/2023 7:17 PM CDT [facility] Blood (Blood, Venous) 06/26/2023 6:57 PM CDT 06/26/2023 7:13 PM CDT Primo Copeland M.D. LAB BLOOD ADD-ON [facility] [address] [place] [address], [facility] STMA [facility] [address] [place] [address] [facility] [address] * ECG 12 Lead (06/26/2023 6:10 PM CDT) Ventricular Rate ECG/Min 87 BPM MUSE VT Interval 154 ms MUSE QRSD Interval 92 ms MUSE QT Interval 374 ms MUSE QTC Interval 450 ms MUSE P [place] 41 degrees MUSE R [place] -4 degrees MUSE T Wave [place] 19 degrees MUSE 06/26/2023 6:10 PM CDT 06/26/2023 6:18 PM CDT Impressions MUSE - 06/26/2023 6:18 PM CDT Sinus rhythm with sinus arrhythmia Low lateral forces Nonspecific ST and T wave abnormality When compared with ECG of 13-JAN-2017 06:13, Lateral forces have decreased ST and T waves have changed Reviewed by HANNAH Noe Narrative Procedure Note Kishan Villareal M.D., Ph.D. - 06/26/2023 IMPRESSION: Sinus rhythm with sinus arrhythmia Low lateral forces Nonspecific ST and T wave abnormality When compared with ECG of 13-JAN-2017 06:13, Lateral forces have decreased ST and T waves have changed Reviewed by HANNAH Noe Joseph Breen P.A.-C. ECG ORDERABLES MUSE NA documented in this encounter Visit Diagnoses Diagnosis Injury Head Initial- Primary Syncope And Near Syncope documented in this encounter Administered Medications Inactive Administered Medications - up to 3 most recent administrations Medication Order MAR Action Action Date Dose Rate Site lidocaine-EPINEPHrine 1 %-1:100,000 injection 10 mL (XYLOCAINE W/EPI) 10 mL, infiltration, Once, On 06/26/23 at 1902, For 1 dose Given 06/26/2023 9:23 PM CDT 10 mL LORazepam injection 1 mg (ATIVAN) 1 mg, intravenous, Once, On 06/26/23 at 2010, For 1 dose, Shortage on injection, use oral when possible For intravenous use, dilute with equal volume of 0.9% NS Given 06/26/2023 8:11 PM CDT 1 mg documented in this encounter Active and Recently Administered Medications Times are shown in CDT. Scheduled Medication Order 06/24/2023 06/25/2023 06/26/2023 lidocaine-EPINEPHrine 1 %-1:100,000 injection 10 mL (XYLOCAINE W/EPI) 10 mL, infiltration, Once, On 06/26/23 at 1902, For 1 dose 2122 (Given - Provid er: Flory Cavazos - Comment: given in procedure) LORazepam injection 1 mg (ATIVAN) (COMPLETED) 1 mg, intravenous, Once, On 06/26/23 at 2009, For 1 dose, Shortage on injection, use oral when possible For intravenous use, dilute with equal volume of 0.9% NS 2010 (Given - Provid er: Catherine Clay R.N.) documented in this encounter
--- OUTSIDE RECORDS SUMMARY | 2023-12-05 11:51 | XMS_ITS | Clinical Summary ---
Author Name Unknown Organization [facility] Address [address] [place] [address] Care Team Providers Care Steam Oven Operator Name Role Phone Unavailable Primary Care Provider Unavailabl e Source Comments Patient records contain information from all sites at [facility]. For routine questions regarding patient records, call [phone] during business hours, M-F 8:00 AM - 5:00 PM Central Time. Record requests for emergency care only can be directed to [phone] at any time.[facility] Allergies Active Allergy Reactions Criticality Noted Date Comments Citalopram Other (see comments) High 02/16/2023 Morphine Itching Low 03/06/2016 Other reaction(s): Itching Prochlorperazine Anxiety Low 03/06/2016 Sumatriptan Anxiety Low 02/16/2023 Medications Medication Sig Dispensed Refills Start Date End Date Status minoxidiL (LONITEN) 2.5 mg tablet Take 0.625 mg by mouth. 0 02/26/2022 Active phentermine (ADIPEX-P) 37.5 mg tablet Take 56.25 mg by mouth. 0 04/20/2022 Active minoxidiL (LONITEN) 2.5 mg tablet Take 2.5 mg by mouth daily. 0 11/02/2022 Active ALPRAZolam (XANAX) 0.5 mg tablet Take 1 mg by mouth as needed. 0 10/28/2022 Active finasteride (PROSCAR) 5 mg tablet Take 2.5 mg by mouth daily. 0 03/09/2023 Active valACYclovir (VALTREX) 1000 mg tablet Take 1,000 mg by mouth daily. 0 02/01/2023 Active topiramate (TOPAMAX) 25 mg tablet Take 25 mg by mouth 2 (two) times a day. 0 03/04/2023 Active acetaminophen (TYLENOL) 500 mg tablet Take 2 tablets (1,000 mg total) by mouth every 6 (six) hours for 5 days. Take 2 tablets up to four times daily for pain 0 05/05/2023 Active ibuprofen (ADVIL,MOTRIN) 200 mg tablet Take 2 tablets (400 mg total) by mouth every 6 (six) hours as needed for pain for up to 3 days. 0 05/05/2023 Active HYDROmorphone (DILAUDID) 2 mg tabletIndications:Acu te Pain Take 1 tablet (2 mg total) by mouth every 4 (four) hours as needed for pain Indication: Acute Pain. 8 tablet 0 05/06/2023 Active escitalopram (LEXAPRO) 5 mg tablet Take 5 mg by mouth daily. 5 to 10 mg daily 0 Active OLANZapine (ZyPREXA) 5 mg tablet Take 5 mg by mouth at bedtime. 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 Twice a week 03/24/2023 Attends Anglican Services Not on file 03/24 Do you belong to any clubs o r organizations such as adventism groups, unions, fraternal or athletic groups, or school groups? No [...] medical care, and heating? Patient [facility] Answer Date Recorded [...] not to disclose 2022 9:03 AM CDT Last Filed Vital Signs Vital Sign Reading Time Taken Comments Blood Pressure 141/83 06/26/2023 9:00 PM CDT Pulse 85 06/26/2023 9:00 PM CDT Temperature 37.5 ??C (99.5 ??F) 06/26/2023 6:04 PM CD T Respiratory Rate 16 06/26/2023 6:04 PM CDT Oxygen Saturation 98% 06/26/2023 9:00 PM CDT Inhaled Oxygen Concentration - - Weight 92.5 kg (203 lb 14.8 oz) 023 10:38 AM CDT Height 166 cm (5' 5.35) 05/05/2023 10: 38 AM CDT Body Mass Index 33.57 05/05/2023 10:38 AM CDT Plan of Treatment Health Maintenance Due Date Last Done Comments Depression Monitoring (PHQ-9) 1985 Hepatitis B Vaccines (1 of 3 - 3-dose series) 1985 Hepatitis C Screening 1985 Lipid (Cholesterol) Screening 1985 COVID-19 Vaccine (#1) 02/20/1986 Cervical Cancer Screening 07/01/20202016 (Performed elsewhere) Influenza Vaccine (#1) 2023 0, 10/08/2019, 09/26/2019, Additional history exists Glucose Test for Med Monitoring 06/26/2024 06/26/2023, 01/13/2017, 05/13/2016, Additional history exists DTaP,Tdap,and Td Vaccines (4 - Td or Tdap) 11/09/2027 11/09/2017, 12/09/2014, 05/09/2008 HIV Screening Completed 03/31/2016, 03/07/2016 HPV Vaccines Aged Out No longer eligi ble based on patient's age to complete this topic Pneumococcal vaccine (0-64 years) Aged Out No longer eligible based on patient's age to complete this topic Medical Devices Implanted Type Area Pattern Puncher Device Identifier Shelf Expiration Date Model / Serial / Lot Clp Hmol Pl Lg - [id number] Implanted:Qty : 1 on 05/05/2023 by Yessi Culver M.D. at [facility] Hardware e.g. pins/screws/ rods N/A: [employer] [id number] / / Explanted Type Area Pattern Puncher Device Identifier Shelf Expiration Date Model / Serial / Lot 5 Macedonian Double-Lumen Power Picc Solo Implanted:02/20 (Quantity not on file) Vascular Other Left: Arm Description:Body Location - UppExtrm L. Device Status Text - VascOther. [place] [id number]
--- OUTSIDE RECORDS SUMMARY | 2023-12-05 11:51 | XMS_ITS | Encounter Summary ---
Author Name Unknown Organization [facility] Address [address] [place] [address] Care Team Providers Care Beater Lead Name Role Phone Unavailable Primary Care Provider Unavailabl e Encounter Details Date Type Department Care Team (Late st Contact Info) Description 05/13/2023 Documentation Division of Endocrine and Metabolic Surgery in [place], [place] [address] [place] [address] Eliceo Winter M.B.B.S. [address] [place] [phone] Social History Tobacco Use Types Packs/Day Years Used Date Smoking Tobacco: Never Smokeless Tobacco: Never Alcohol Use Standard Drinks/Week Comments Yes 0 [...] or relatives? Twice a week 03/24/2023 Attends Anabaptist Services Not on file 03/24 Do you [...] medical care, and heating? Patient declined 03/24/2023 [facility] ional Health - Occupational Stress Questionnaire Answer [...] AM CDT documented as of this encounter Progress Notes * Eliceo Winter M.B.BAmarisS. - 05/13/2023 2:51 PM CDT Patient called with concern of consistent nausea and vomiting and failure to thrive after cholecystectomy. I have discussed with her in detail about her ongoing symptoms. She???s having nausea and small volume emesis even then she???s using Zofran. She???s not spiking fevers, Rigers and chills. She???s not complaining of abdominal pain. She thinks that her incisions are healing well. She mentioned that she used to have Nausea/vomiting and unabl e to eat and drink even before surgery. I have discussed the pathophysiology of cholecystectomy and related complications. I have recommended to contact her primary care physician to further evaluate her ongoing nausea and symptoms. I also recommended to come to emergency department for further evaluation, including CT scan abdomen and pelvis. All her questions and concerns were answered in detail and she showed understanding. documented in this encounter Plan of Treatment Not on file documented as of this encounter Visit Diagnoses Not on filedocumented in this encounter
--- OUTSIDE RECORDS SUMMARY | 2023-12-05 11:51 | XMS_ITS | Encounter Summary ---
Author Name Unknown Organization [facility] Address [address] [place] [address] Care Team Providers Care Instructor Programmable Controllers Name Role Phone Unavailable Primary Care Provider Unavailabl e Encounter Details Date Type Department Care Team (Late st Contact Info) Description 05/08/2023 Clinical Communication Division of Endocrine and Metabolic Surgery in [place], [place] [address] [place] [address] Krista Sheikh M.D. [address] [place] [phone] Social History Tobacco Use Types Packs/Day Years [...] or relatives? Twice a week 03/24/2023 Attends Mu-Ism Services Not on file 03/24 Do you belong to any clubs o r organizations such as adventist groups, unions, fraternal or athletic groups, or [...] medical care, and heating? Patient declined 03/24/2023 [facility] of Occupat ional Health - Occupational Stress [...] AM CDT documented as of this encounter Miscellaneous Notes * Telephone Encounter - Krista Sheikh M.D. - 05/08/2023 6:42 PM CDT Patient's calls in this evening as she has not had a bowel movement in the 3 days since surgery and is having increasing abdominal pain and nausea which she relates to this. No fever, generalmalaise. Provided recommendations on increased bowel regimen to include oral agents and suppository. If no success or worsening symptoms, she may need to be evaluated locally. They were comfortable with this plan. documented in this encounter Plan of Treatment Not on file documented as of this encounter Visit Diagnoses Not on filedocumented in this encounter
--- OUTSIDE RECORDS SUMMARY | 2023-12-05 11:51 | XMS_ITS | Continuity of Care Document ---
Author Name [facility] Organization [facility] Care Team Providers Care Artificial Flower Maker Name Role Phone [facility] Unavailable Unavailable Social History Combined list of available smoking, tobacco, and other social history from Department of Defense and Veterans Affairs facilities. Social History Type Response Date Comment Sourc e This section is an empty social history section. [facility]
--- OUTSIDE RECORDS SUMMARY | 2023-12-05 11:51 | XMS_ITS | Referral Summary ---
Author Name Unknown Organization [facility] Address [address] [place] [address] Care Team Providers Care Steam Tank Operator Name Role Phone Unavailable Primary Care Provider Unavailabl e Source Comments Patient records contain information from all sites at [facility]. For routine questions regarding patient records, call [phone] during business hours, M-F 8:00 AM - 5:00 PM Central Time. Record requests for emergency care only can be directed to [phone] at any time.[facility] Allergies Active Allergy Reactions Criticality Noted Date [...] or relatives? Twice a week 03/24/2023 Attends Buddhism Services Not on file 03/24 Do you belong to any clubs o r organizations such as religion groups, unions, fraternal or athletic groups, or [...] medical care, and heating? Patient declined 03/24/20[facility] Questionnaire [...] 05/05/2023 10:38 AM CDT Plan of Treatment Not on file Medical Devices Implanted Type Area Book Sorter Device Identifier Shelf Expiration Date Model / Serial / Lot Clp Hmol Plmr Lg - [id number] Implanted:Qty : 1 on 05/05/2023 by Yessi Culver M.D. at [facility] Hardware e.g. pins/screws/ rods N/A: [employer] [id number] / / Explanted Type Area Book Sorter Device Identifier Shelf Expiration Date Model / Serial / Lot 5 Persian Double-Lumen Power Picc Solo Implanted:02/20 (Quantity not on file) Vascular Other Left: Arm Description:Body Location - UppExtrm L. Device [place] [id number]
--- OUTSIDE RECORDS SUMMARY | 2023-12-05 11:51 | XMS_ITS ---
Author Name Unknown Organization [facility] Address [address] [place] [address] Care Team Providers Care Teacher Of The Hearing Impaired Name Role Phone Unavailable Unavailable Unavailable Surgery Details Not on file Complications Check Surgery Details section. Procedure Estimated Blood Loss Check Surgery Details section. Procedure Findings Check Surgery Details section. Procedure Specimens Taken Check Surgery Details section.
--- OUTSIDE RECORDS SUMMARY | 2023-12-05 11:51 | XMS_ITS | Encounter Summary ---
Author Name Unknown Organization [facility] Address [address] [place] [address] Care Team Providers Care First Assistant Name Role Phone Unavailable Primary Care Provider Unavailabl e Encounter Details Date Type Department Care Team (Late st Contact Info) Description 05/13/2023 Clinical Communication Division of Endocrine and Metabolic Surgery in [place], [place] [address] [place] [address] Yessi Hansen M.D. [address] [place] [phone] Social History Tobacco Use Types Packs/Day Years [...] or relatives? Twice a week 03/24/2023 Attends Scientologist Services Not on file 03/24 Do you belong to any clubs o r organizations such as cheondoism groups, unions, fraternal or athletic groups, or [...] medical care, and heating? Patient declined 03/24/2023 [facility] of Occupat ional Health - Occupational [...] encounter Miscellaneous Notes * Telephone Encounter - Tiffany Martinez R.N. - 05/13/2023 9:47 AM CDT SUBJECTIVE CHIEF COMPLAINT / REASON FOR CALL Followup Information Discussed Tiffanycora Casas is status post robotic assisted multiport cholecystectomy on May [address] Hansen. The patient continues to have nausea and occasional vomiting. Yesterday she tookZofran 3 times throughout the day. Patient states the Zofran relieves nausea, but causes her to have headaches. She also is struggling to have regular bowel movements. She is currently taking senna once a day. She denies any fever or chills. Her incisions are healing nicely, and there are no indications of possible infection. She states she is eating very little, only saltine crackers and Gatorade/water. Patient states she has her tubes tied and could not be . The patient feels she islikely dehydrated, but states her local e.d. will not give her fluids. She indicates labs were drawn, and the clinic determined she was not dehydrated. Patient would like a call back from either Dr. Hansen or her resident to discuss next steps or recommendations. Incision location: Abdomen Incision: clean, dry, and intact Pain: no pain medications needed Diet: eating: with difficulty, drinking: with difficulty, nausea, and vomiting Elimination: bowel movements: with difficulty Drain(s): none PLAN Disposition/Recommendation: self-care is appropriate at this time, patient encouraged to call back with questions Information/Education: patient/caller able to teach back Caller agreeable to plan of care: yes The following references were used: nursing clinical judgement documented in this encounter Plan of Treatment Not on file documented as of this encounter Visit Diagnoses Not on filedocumented in this encounter
--- OUTSIDE RECORDS SUMMARY | 2023-12-05 11:51 | XMS_ITS | Encounter Summary ---
Author Name Unknown Organization [facility] Address [address] [place] [address] Care Team Providers Care Director Of Online Education Name Role Phone Unavailable Primary Care Provider Unavailabl e Encounter Details Date Type Department Care Team (Latest Contact Info) Description 05/13/2023 Clinical Communication Division of Gastroenterology in [place], [place] [address] [place] [address] Tayla Martinez M.D., M.P.H. [address] [place] [address] Social History Tobacco Use Types Packs/Day Years [...] any clubs o r organizations such as hindu groups, unions, fraternal or athletic groups, or [...] medical care, and heating? Patient declined 03/24/2023 [facility] of Occupat ional Health - Occupational Stress [...] AM CDT documented as of this encounter Plan of Treatment Not on file documented as of this encounter Visit Diagnoses Not on filedocumented in this encounter
--- OUTSIDE RECORDS SUMMARY | 2023-12-05 11:52 | XMS_ITS | Encounter Summary ---
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 [address] [place] [phone] Stone Common Duct Discharge Disposition: Home or Self Care Social [...] any clubs o r organizations such as scientology groups, unions, fraternal or athletic groups, or [...] medical care, and heating? Patient declined 03/24/2023 [facility] - Occupational [...] Sign Reading Time Taken Comments Blood Pressure 119/61 05/05/2023 4:50 PM CDT Pulse 52 05/05/2023 4:50 PM CDT Temperature 36.8 ??C (98.2 ??F) 05/05/2023 4:20 PM CD T Respiratory Rate 12 05/05/2023 4:15 PM CDT Oxygen Saturation 100% 05/05/2023 4:50 PM CDT Inhaled Oxygen Concentration - - Weight 92.5 kg (203 lb 14.8 oz) 023 10:38 AM CDT Height 166 cm (5' 5.35) 05/05/2023 10: 38 AM CDT Body Mass Index 33.57 05/05/2023 10:38 AM CDT documented in this encounter Medications at Time of Discharge Medication Sig Dispensed Refills Start Date End Date acetaminophen (TYLENOL) 500 mg tablet Take 2 tablets (1,000 mg total) by mouth every 6 (six) hours for 5 days. Take 2 tablets up to four times daily for pain 0 05/05/2023 ALPRAZolam (XANAX) 0.5 mg tablet Take 1 mg by mouth as needed. 0 10/28/2022 finasteride (PROSCAR) 5 mg tablet Take 2.5 mg by mouth daily. 0 03/09/2023 ibuprofen (ADVIL,MOTRIN) 200 mg tablet Take 2 tablets (400 mg total) by mouth every 6 (six) hours as needed for pain for up to 3 days. 0 05/05/2023 minoxidiL (LONITEN) 2.5 mg tablet Take 0.625 mg by mouth. 0 02/26/2022 minoxidiL (LONITEN) 2.5 mg tablet Take 2.5 mg by mouth daily. 0 11/02/2022 phentermine (ADIPEX-P) 37.5 mg tablet Take 56.25 mg by mouth. 0 04/20/2022 topiramate (TOPAMAX) 25 mg tablet Take 25 mg by mouth 2 (two) times a day. 0 03/04/2023 valACYclovir (VALTREX) 1000 mg tablet Take 1,000 mg by mouth daily. 0 02/01/2023 sennosides-docusate sodium (SENOKOT-S) 8.6-50 mg per tablet Take 2 tablets by mouth at bedtime for 3 days. 6 tablet 0 05/05/2023 05/08/2023 fluconazole (DIFLUCAN) 150 mg tablet Take 1 tablet at the onset of symptoms and repeat in one week. 0 10/07/2018 06/26/2023 ondansetron ODT (ZOFRAN-ODT) 4 mg disintegrating tablet Dissolve 4 mg in the mouth as needed. 0 02/16/2023 05/06/2023 oxyCODONE (ROXICODONE) 5 mg immediate release tabletIndications:Acute Pain Take 1 tablet (5 mg total) by mouth every 4 (four) hours as needed for pain Indication: Acute Pain. 5 tablet 0 05/05/2023 05/06/2023 documented as of this encounter OR Notes * Op Rafita - Yessi Hansen M.D. - 05/05/2023 12:28 PM CDT Pre-op Diagnosis Stone Common Duct Post-op Diagnosis Stone Common Duct A customer relations assistant actively participated and was necessary for one or more of the following: opening, exposure and visualization during the case, maintaining hemostasis, wound closure resulting in itssafe and expeditious completion. Findings As expected. Complications None Operative Note Narrative After the induction of general endotracheal anesthesia, the abdomen was prepped and draped in a sterile fashion. A surgical pause was performed. A left upper quadrant Veress needle and optical accesstrocar was used to enter the peritoneal cavity. Pneumoperitoneum was created and the camera inserted. Bilateral tap blocks were placed. Additional trocars were placed under vision. The robot was thendocked. The gallbladder was identified and the fundus grasped and retracted cephalad. The infundibulum was grasped and retracted laterally, exposing the peritoneum overlying the triangle of Calot. The peritoneum was carefully opened laterally and medially. The cystic duct and cystic artery were clearly identified and bluntly dissected circumferentially. The junctions of the gallbladder, cystic duct, and common bile duct were identified including with the use of IV ICG and firefly technology and the critical view obtained. The cystic duct was divided and the stump ligated. The cystic arterywas ligated with clips and divided. The gallbladder was dissected from the liver bed in retrograde fashion with electrocautery. The liver bed was irrigated and inspected. Hemostasis was ensured. Irrigation fluid was evacuated with suction. The gallbladder was removed with an endocatch bag through the right midclavicular line port. The fascia of the extraction port site was closed with absorbable suture using intracorporeal suturing. The robot was undocked. The trocars were removed under vision.The skin incisions were closed with absorbable suture and covered with Band-Aids. All counts were reported correct. The patient tolerated the procedure in stable condition. Yessi Hansen M.D. * Brief Op Note - Nelson Cordero M.D. - 05/05/2023 12:28 PM CDT Pre-op Diagnosis Stone Common Duct Post-op Diagnosis Stone Common Duct Findings Robotic assisted cholecystectomy. Bilateral TAP blocks. 50cc Exparel/bupivacaine used for local anesthetic. Port sites x 4 closed with monocryl. Mastisol, steri strips, bandaids, tegaderm. Complications None Nelson Cordero M.D. documented in this encounter Miscellaneous Notes * Result Encounter Note - Yessi Hansen M.D. - 05/10/2023 4:10 PM CDT I have reviewed the final pathology report and the identified diagnosis is consistent with the patient's clinical presentation. documented in this encounter Plan of Treatment Not on file documented as of this encounter Procedures Procedure Name Priority Date/Time Associated Diagnosis Comments ADULT OXYGEN THERAPY Routine 05/05/2023 3:27 PM CDT SURGICAL PATHOLOGY, [facility]OZEN LAB Routine 05/05/2023 2:30 PM CDT Stone Common Duct ROBOTIC-ASSISTED MULTIPORT CHOLECYSTECTOMY 05/05/2023 11:19 AM CDT Stone Common Duct Case Notes Patient previously woke up confused and violent after surgeries documented in this encounter Results * Surgical Pathology, Frozen Lab (05/05/2023 2:30 PM CDT) 05/10/2023 12:31 PM CDT METH Report electronically signed by Carsno Akhtar M.D. I verify that I have examined all relevant slides/materia ls for the specimen(s) and rendered or confirmed the diagnosis. 05/10/2023 12:31 PM CDT METH Gross Description A. Received fresh labeled gallbladder is a 10.7 x 4 x 2.7 cm gallbladder with a 0.3 cm maximum wall thickness and patent cystic duct. ??A cystic duct lymph node is identified. ??There are multiple (2) mixed stones ranging from 1 cm to 1.3 cm in greatest dimension. ??Cholesterolo sis is identified. ??No masses are identified. ??Representati ve tissue submitted for permanent sections. ??Grossed by MARCIA Haro, KIAH ([facility]). 05/10/2023 12:31 PM CDT METH Block Summary A Gallbladder A1 Gallbladder A2 Periductal lymph node 1(A1) 05/10/2023 12:31 PM CDT METH Interpretation FINAL DIAGNOSIS A. Gallbladder, cholecystectom y: ??Chronic cholecystitis. Cholelithiasis . ??One benign reactive lymph node. 05/10/2023 12:31 PM CDT METH Tissue (Gallbladder) 05/05/2023 2:30 PM CDT Yessi Hansen M.D. LAB SURG PAT H ORDERABLES Performing Organization Address City/State/[facility] Co de Phone Number [facility] [address] [place] [address], [facility] METH [address] [place] [address] documented in this encounter Visit Diagnoses Diagnosis Stone Common Duct- Primary Post Operative Nausea/Vomiting Anxiety Depressive Disorder documented in this encounter Admitting Diagnoses Diagnosis Stone Common Duct documented in this encounter Administered Medications Inactive Administered Medications - up to 3 most recent administrations Medication Order MAR Action Action Date Dose Rate Site acetaminophen tablet 1,000 mg (TYLENOL) 1,000 mg, oral, Once, On Diana 05/05/23 at 1130, For 1 dose, Pre-Op, Airborne Mission Systems Superintendent, PreOp with sips Given 05/05/2023 11:12 AM CDT 1,000 mg fentaNYL injection 25 mcg (SUBLIMAZE) 25 mcg, intravenous, Every 2 min PRN, For pain 4 or greater (maximum 100 mcg). If max dose of Fentanyl is reached and if pain is greater than 4, discontinue Fentanyl: give Hydromorphone, Starting on Diana 05/05/23 at 1526, PACU (only) Given 05/05/2023 3:58 PM CDT 25 mcg Given 05/05/2023 3:55 PM CDT 25 mcg granisetron (PF) injection 1 mg (KYTRIL) 1 mg, intravenous, Once as needed, nausea, vomiting, Starting on Diana 05/05/23 at 1526, For 1 dose, PACU (only), If patient does not respond to ondansetron or haloperidol. (order of antiemetic administration - ondansetron then haloperidol then granisetron) Given 05/05/2023 3:29 PM CDT 1 mg haloperidol lactate injection 1 mg (HALDOL) 1 mg, intravenous, Every 6 hours PRN, nausea, vomiting, Starting on Diana 05/05/23 at 1551, For 48 hours, Total of 3 doses in 24 hour period. RASS must be -2 or higher to administer. Reassess for nausea or vomiting after at least 10 minutes. If nausea or vomiting persists administer next ordered antiemetic medications (order for antiemetic medication administration ondansetron then haloperidol then prochlorperazine) Given 05/05/2023 3:54 PM CDT 1 mg lactated ringers 50 mL/hr, intravenous, Continuous, Starting on Diana 05/05/23 at 1445, PACU & Post-Op Continued from OR 05/05/2023 3:35 PM CDT 50 mL/hr 50 mL/hr ondansetron (PF) injection 4 mg (ZOFRAN) 4 mg, intravenous, Every 6 hours PRN, nausea, vomiting, (If patient has not received in the previous 6 hours), Starting on Diana 05/05/23 at 1526, PACU (only), Administer first. If nausea and vomiting persists, proceed with haloperidol. (order of antiemetic administration - ondansetron then haloperidol then granisetron) Given 05/05/2023 4:02 PM CDT 4 mg oxyCODONE IR tablet 10 mg (ROXICODONE) 10 mg, oral, Every 4 hours PRN, severe pain or score 7-10 of 10, Starting on Diana 05/05/23 at 1711 oxyCODONE IR tablet 5 mg (ROXICODONE) 5 mg, oral, Every 4 hours PRN, moderate pain or score 4-6 of 10, Starting on Diana 05/05/23 at 1711 scopolamine base 1 mg over 3 days 1 patch (TRANSDERM SCOP) 1 patch, transdermal, Administer over 72 Hours, Every 72 hours, First dose on Diana 05/05/23 at 1130, Pre-Op, Contains 1.5 mg to deliver 1 mg/72 hours. Medication Applied 05/05/2023 11:12 AM CDT 1 patch Behind Right Ear documented in this encounter Active and Recently Administered Medications Times are shown in CDT. Scheduled Medication Order 05/03/2023 05/04/2023 05/05/2023 acetaminophen tablet 1,000 mg (TYLENOL) (COMPLETED) 1,000 mg, oral, Once, On Diana 05/05/23 at 1130, For 1 dose, Pre-Op, Airborne Mission Systems Superintendent, PreOp with sips 1112 (Given - Provid er: Renea Hernandez R.N.) acetaminophen tablet 1,000 mg (TYLENOL) 1,000 mg, oral, Every 6 hours scheduled, First dose on Diana 05/05/23 at 1800 heparin (porcine) injection 5,000 Units (COMPLETED) 5,000 Units, subcutaneous, Once, On Diana 05/05/23 at 1100, For 1 dose, Intra-Op, Administer prior to induction of anesthesia. 1202 (Given - Provid er: Thanh Morrison, CANCER REGISTRAR, SUPERVISOR [employer]LL[employer]) scopolamine base 1 mg over 3 days 1 patch (TRANSDERM SCOP) 1 patch, transdermal, Administer over 72 Hours, Every 72 hours, First dose on Diana 05/05/23 at 1130, Pre-Op, Contains 1.5 mg to deliver 1 mg/72 hours. 1112 (Medication Hever lied - Provider: Renea Hernandez R.N.)1718 (Due: Medication Removed - Provider: Discharge Provider, Automatic - Comment: Time automatically adjusted from order being discontinued) Continuous Medication Order 05/03/2023 05/04/2023 05/05/2023 lactated ringers 50 mL/hr, intravenous, Continuous, Starting on Diana 05/05/23 at 1445, PACU & Post-Op 1535 (Continued from OR - Provider: Elysia Guzman R.N.) PRN Medication Order 05/03/2023 05/04/2023 05/05/2023 BUPivacaine liposome (PF) 20 mL, BUPivacaine 30 mL 50 mL injection (CANCELED) As needed, Starting on Diana 05/05/23 at 1444, Intra-Op 1444 (Given - Provid er: Nelson Cordero M.D.) fentaNYL injection 25 mcg (SUBLIMAZE) (CANCELED) 25 mcg, intravenous, Every 2 min PRN, For pain 4 or greater (maximum 100 mcg). If max dose of Fentanyl is reached and if pain is greater than 4, discontinue Fentanyl: give Hydromorphone, Starting on Diana 05/05/23 at 1526, PACU (only) 1555 (Given - Provid er: Brooke MorilloNAmaris)1558 (Given - Provider: Elysia Guzman R.N.) granisetron (PF) injection 1 mg (KYTRIL) (COMPLETED) 1 mg, intravenous, Once as needed, nausea, vomiting, Starting on Diana 05/05/23 at 1526, For 1 dose, PACU (only), If patient does not respond to ondansetron or haloperidol. (order of antiemetic administration - ondansetron then haloperidol then granisetron) 1529 (Given - Provid er: Elysia Guzman R.N.) haloperidol lactate injection 1 mg (HALDOL) 1 mg, intravenous, Every 6 hours PRN, nausea, vomiting, Starting on Diana 05/05/23 at 1551, For 48 hours, Total of 3 doses in 24 hour period. RASS must be -2 or higher to administer. Reassess for nausea or vomiting after at least 10 minutes. If nausea or vomiting persists administer next ordered antiemetic medications (order for antiemetic medication administration ondansetron then haloperidol then prochlorperazine) 1554 (Given - Provid er: Elysia Guzman RAmarisN.) ibuprofen tablet 400 mg (MOTRIN) 400 mg, oral, Every 6 hours PRN, mild pain or score 1-3 of 10, Starting on Diana 05/05/23 at 2100, Start 6 hours after last ketorolac dose. naloxone injection 0.2 mg (NARCAN) 0.2 mg, intravenous, As needed, respiratory depression, Starting on Diana 05/05/23 at 1711, For respiratory rate less than 8 breaths per minute or RASS score of -3, -4, -5. Apply oxygen to keep oxygen saturations greater than 90% and notify service. ondansetron (PF) injection 4 mg (ZOFRAN) (CANCELED) 4 mg, intravenous, Every 6 hours PRN, nausea, vomiting, (If patient has not received in the previous 6 hours), Starting on Diana 05/05/23 at 1526, PACU (only), Administer first. If nausea and vomiting persists, proceed with haloperidol. (order of antiemetic administration - ondansetron then haloperidol then granisetron) 1602 (Given - Provid er: Elysia Guzman R.N.) ondansetron (PF) injection 4 mg (ZOFRAN) 4 mg, intravenous, Every 6 hours PRN, nausea, vomiting, Starting on Diana 05/05/23 at 1711, For 48 hours, Reassess for nausea or vomiting after at least 10 minutes. If nausea or vomiting persists administer next ordered antiemetic medications (order for antiemetic medication administration ondansetron then haloperidol then prochlorperazine). oxyCODONE IR tablet 10 mg (ROXICODONE)(Linked Group 1) 10 mg, oral, Every 4 hours PRN, severe pain or score 7-10 of 10, Starting on Diana 05/05/23 at 1711 oxyCODONE IR tablet 5 mg (ROXICODONE)(Linked Group 1) 5 mg, oral, Every 4 hours PRN, moderate pain or score 4-6 of 10, Starting on Diana 05/05/23 at 1711 Linked Groups Order Group 1: oxyCODONE IR tablet 5 mg (ROXICODONE)Jump to med 5 mg, oral, Every 4 hours PRN, moderate pain or score 4-6 of 10, Starting on Diana 05/05/23 at 1711 Or oxyCODONE IR tablet 10 mg (ROXICODONE)Jump to med 10 mg, oral, Every 4 hours PRN, severe pain or score 7-10 of 10, Starting on Diana 05/05/23 at 1711 documented in this encounter
--- OUTSIDE RECORDS SUMMARY | 2023-12-05 11:52 | XMS_ITS | Encounter Summary ---
Author Name Unknown Organization [facility] Address [address] [place] [address] Care Team Providers Care Montessori Toddler Teacher Name Role Phone Unavailable Primary Care Provider Unavailabl e Reason for Visit * Reason Onset Date Comments Pre-visit Intake 02/18/2023 Encounter Details Date Type Department Care Team (Latest Contact Info) Description 02/18/2023 3:00 PM CDT Clinical Communication Virtual Review in [place], [place] [address] [place], [place] [id number] Pre-visit Intake Social History Tobacco Use Types Packs/Day Years Used Date Smoking Tobacco: Never Smokeless Tobacco: Never Tobacco Cessation:Counseling Given: Not Answered Nutrition Answer Date Recorded Nutrition: EVOO Fat Source Unknown 01/26 Nutrition: Servings of Fruits/Vegetables per Day Not on file 01/26/2021 Dental Answer Date Recorded Dental: Regular Dentist Unknown 01/28/20 21 Sex and Gender Information Value Date Recorded Sex Assigned at Female 03/24/2023 9:03 AM CDT Gender Identity Female 03/24/2023 9:03 AM CDT Sexual Orientation Choose not to disclose 2022 9:03 AM CDT documented as of this encounter Plan of Treatment Not on file documented as of this encounter Visit Diagnoses Not on filedocumented in this encounter
--- OUTSIDE RECORDS SUMMARY | 2023-12-05 11:52 | XMS_ITS | Encounter Summary ---
Author Name Unknown Organization [facility] Address [address] [place] [address] Care Team Providers Care Floor Framer Name Role Phone Unavailable Primary Care Provider Unavailabl e Reason for Visit * Auth/Cert (Routine) Specialty Diagnoses / Procedures Referred By Paul merritt Referred To Contact Diagnoses Stone Common Duct Stone Common Duct [K80.50] Procedures CT LAPAROSCOPY CHOLECYSTECTOMY ROBOTIC-ASSISTED MULTIPORT CHOLECYSTECTOMY Referral ID Status Reason Start Date Expiration Date Visits Re quested Visits Authorized [id number] 1 1 Encounter Details Date Type Department Care Team (Late st Contact Info) Description 05/05/2023 11:42 AM CDT - 05/05/2023 3:24 PM CDT Surgery [facility] [address] [place] [address] Yessi Hansen M.D. [address] [place] [phone] ROBOTIC-ASSISTED MULTIPORT CHOLECYSTECTOMY. Social History Tobacco Use Types Packs/Day Years [...] or relatives? Twice a week 03/24/2023 Attends Temple Services Not on file 03/24 Do you belong to any clubs o r organizations such as zoroastrianism groups, unions, fraternal or athletic groups, or [...] medical care, and heating? Patient declined 03/24/2023 [facility] - Occupational Stress [...] or rent on time? Patient refused 03/24/20 Number of Places Lived in the Last [...] Sign Reading Time Taken Comments Blood Pressure 120/78 05/05/2023 10:38 AM CDT Pulse 80 05/05/2023 10:38 AM CDT Temperature 36.8 ??C (98.2 ??F) 05/05/2023 1 0:38 AM CDT Respiratory Rate 16 05/05/2023 10:3 8 AM CDT Oxygen Saturation 99% 05/05/2023 10: 38 AM CDT Inhaled Oxygen Concentration - - Weight [...] Duct Post-op Diagnosis Stone Common Duct A administrative assistant data entry actively participated and was necessary for one [...] PM CDT METH Report electronically signed by Carson Akhtar M.D. I verify that I have [...] permanent sections. ??Grossed by MARCIA Haro, KIAH ([facility]). 05/10/2023 12:31 PM CDT METH Block Summary A Gallbladder A1 Gallbladder A2 Periductal lymph node 1(A1) 05/10/2023 12:31 PM CDT METH Interpretation FINAL DIAGNOSIS A. Gallbladder, cholecystectom y: ??Chronic cholecystitis. Cholelithiasis . ??One benign reactive lymph node. 05/10/2023 12:31 PM CDT METH Tissue (Gallbladder) 05/05/2023 2:30 PM CDT Yessi Hansen M.D. LAB SURG PAT H ORDERABLES Performing Organization Address City/State/[facility] Co de Phone Number [facility] [place] [address] [place] [address], [facility] METH [address] [place] [address] documented in this encounter Visit Diagnoses Diagnosis Stone Common Duct- Primary Post Operative Nausea/Vomiting Anxiety Depressive Disorder Stone Common Duct documented in this encounter Admitting Diagnoses Diagnosis Stone Common Duct documented in this encounter Administered Medications Inactive Administered Medications - up to 3 most recent administrations Medication Order MAR Action Action Date Dose Rate Site acetaminophen tablet 1,000 mg (TYLENOL) 1,000 mg, oral, Once, On Diana 05/05/23 at 1130, For 1 dose, Pre-Op, Drafter Directional Survey, PreOp with sips Given 05/05/2023 11:12 AM CDT 1,000 mg BUPivacaine liposome (PF) 20 mL, BUPivacaine 30 mL 50 mL injection As needed, Starting on Diana 05/05/23 at 1444, Intra-Op Given 05/05/2023 2:44 PM CDT 50 mL Abdominal Tissue fentaNYL injection 25 mcg (SUBLIMAZE) 25 mcg, [...] 05/05/23 at 1130, For 1 dose, Pre-Op, Drafter Directional Survey, PreOp with sips 1112 (Given - Provid er: Renea Hernandez R.N.) acetaminophen tablet 1,000 mg (TYLENOL) 1,000 mg, oral, Every 6 hours scheduled, First dose on Diana 05/05/23 at 1800 heparin (porcine) injection 5,000 Units (COMPLETED) 5,000 Units, subcutaneous, Once, On Diana 05/05/23 at 1100, For 1 dose, Intra-Op, Administer prior to induction of anesthesia. 1202 (Given - Provid er: Thanh Morrison APRN, MAMMOGRAPHY SUPERVISOR) scopolamine base 1 mg over 3 days [...] PACU (only) 1555 (Given - Provid er: Elysia Guzman R.N.)1558 (Given - Provider: Elysia Guzman R.N.) granisetron [...] 1554 (Given - Provid er: Elysia Guzman RVeronica.) ibuprofen tablet 400 mg (MOTRIN) 400 mg, [...]
--- OUTSIDE RECORDS SUMMARY | 2023-12-05 11:52 | XMS_ITS | Encounter Summary ---
Author Name Unknown Organization [facility] Address [address] [place] [address] Care Team Providers Care Cmo Name Role Phone Unavailable Primary Care Provider Unavailabl e Reason for Visit * Reason Onset Date Comments Abdominal Pain 02/15/2023 Encounter Details Date Type Department Care Team (Late st Contact Info) Description 02/15/2023 Nurse Triage Department of Family Medicine, [facility], in [place], [place] [address] [place] [id number] Maria De Jesus Acosta R.N. [address] [place] [address] Abdominal Pain Social History Tobacco Use Types Packs/Day Years Used Date Smoking Tobacco: Never Nutrition Answer Date Recorded Nutrition: EVOO Fat [...] encounter Miscellaneous Notes * Telephone Encounter - Maria De Jesus Acosta, RAmarisN. - 02/15/2023 10:06 PM CDT Chief Complaint / Reason for Call Patient is a 37 y.o. female calling regarding Abdominal Pain. Assessment Concern: Right sided upper abdominal pain, constant 8/10.. Thought it was gas pain, GasX and Pepto did not help. Present for: 3 hours Home cares tried: gasx, pepto Calling to request: advice The recommended disposition is Go to ED Now. Care Advice Patient/Caregiver understands and will follow care advice?: Yes, able to teach back GO TO ED NOW: * You need to be seen in the Emergency Department. * Go to the ED at your Hospital. * Leave now. Drive carefully. NOTHING BY MOUTH: * Do not eat or drink anything for now. * Reason: condition may need surgery and general anesthesia. Reason for Disposition [1] SEVERE pain (e.g., excruciating) AND [2] present > 1 hour Protocols used: Abdominal Pain - [id number] documented in this encounter Plan of Treatment Not on file documented as of this encounter Visit Diagnoses Not on filedocumented in this encounter
--- OUTSIDE RECORDS SUMMARY | 2023-12-05 11:52 | XMS_ITS | Encounter Summary ---
Author Name Unknown Organization [facility] Address [address] [place] [address] Care Team Providers Care Stone Cleaner Name Role Phone Unavailable Primary Care Provider Unavailabl e Reason for Referral * Outpatient (Routine) - Closed Specialty Diagnoses / Procedures Referred By Contpepito t Referred To Contact General Surgery Diagnoses Colic Biliary Tayla Martinez M.D., M.P.H. [address] [place] [phone] [facility] Referral ID Status Reason Start Date Expiration Date V isits Requested Visits Authorized [id number] Closed Specialty Services Required 02/21/2023 02/21/2024 1 1 Reason for Visit * Outpatient (Routine) - Closed Specialty Diagnoses / Procedures Referred By Contact Referred To Contact Gastroenterology and Hepatology Diagnoses Colic Biliary Tayla Martinez M.D., M.P.H. [address] [place] [phone] [facility] Referral ID Status Reason Start Date Expiration Date Visits Re quested Visits Authorized [id number] Closed 02/18/2023 02/17/2026 1 1 Encounter Details Date Type Department Care Team (Late st Contact Info) Description 02/21/2023 1:00 PM CDT Virtual Visit Division of Gastroenterology in [place], [place] [address] [place] [phone] Tayla Martinez M.D., M.P.H. [address] [place] [phone] Colic Biliary Social History Tobacco Use Types Packs/Day Years Used Date Smoking Tobacco: Never Smokeless Tobacco: Never Nutrition Answer Date Recorded Nutrition: [...] as of this encounter Progress Notes * Tayla Martinez M.D., M.P.H. - 02/21/2023 1:00 PM CDT SUBJECTIVE Chief Complaint/Reason for Visit No chief complaint on file. Tiffany Casas is a 37 y.o. female who presents for evaluation of the following concerns: History of Present Illness: Diagnosis Plan 1. Colic Biliary Gastroenterology and Hepatology office visit (clinic) General Surgery - General consult (clinic) Ms. Tiffany Casas 37-year-old woman with history of symptomatic cholelithiasis and likely benign pancreatic tail cyst (s/p EUS-FNA in 09/2022) Who presents for follow-up regarding symptomatic cholelithiasis. Patient reports that she has gone to the ED a couple of times since our last follow-up visit. She did have a short hospitalization d/t significant symptomatic biliary colic. She has known cholelithiasis. She reports that she was evaluated by 2 providers outside who recommended cholecystectomy. She r eports that she prefers to get this done at [facility], and is reaching out for consultation. On review of her clinical documentation, it appears that we did have this conversation that her initial consultation and referred her to General surgery, but there was some confusion with scheduling and that appointment was not completed. In review of her history, she has consistent RUQ abdominal pain. She describes it as largely constant, dull/ achy in quality, currently 2-3/10 in intensity ( maximum 9-10/10 in intensity ) with associated nausea. She states that it will occasionally radiate to the epigastrium, and also to the rightshoulder blade in the back. She has a very clear dietary triggers, including exacerbations and aggravation of the pain with eating, particularly fried or fatty foods, junk food, and bread/ gluten is foods. She reports that her pain greatly improved if not resolved with fasting. She does not take significant NSAID s. It sounds as if she may have an as-needed narcotic medication for pain exacerbations. She reports that she is going on vacation to [place] for a week starting on 02/25/2023. The following portions of the patient's history were reviewed and updated as appropriate: allergies, current medications, family history, medical history, social history, surgical history, and problem list. Review of Systems Negative unless noted in HPI. OBJECTIVE Physical Exam Unable to complete as this was a phone visit. ASSESSMENT / PLAN 1. Colic Biliary - Gastroenterology and Hepatology office visit (clinic) - General Surgery - General consult (clinic); Future Ms. Tiffany Casas Is a 37-year-old who is likely suffering from symptomatic cholelithiasis/ biliary colic. Her symptoms are most consistent with biliary colic, we will send her to General surgery for further evaluation. I see that although we have the reports of her outside ultrasound and CT abdomen /pelvis, we do not have any of the images for personal review. She will reach out to the health systems to get those images forwarded to us, which I imagine will help the general surgeon with regards to surgical evaluation. All questions answered. Return precautions provided to the patient, including: Fevers, chills, persistent nausea vomiting, severe abdominal pain that is unrelenting. If these were to manifest, she should go to the emergencydepartment for prompt evaluation. I personally spent over half of a total 15 minutes in counseling and discussion with the patient and coordination of care as described above. Tayla Martinez M.D., M.P.H. Gastroenterology & Hepatology, [id number] documented in this encounter Plan of Treatment Scheduled Referrals Name Type Priority Associated Diagnoses Orde r Schedule General Surgery - General consult (clinic) Outpatient Referral Routine Colic Biliary Expected: 02/21/2023 (Approximate), Expires: 05/23/2024 documented as of this encounter Visit Diagnoses Diagnosis Colic Biliary documented in this encounter
--- OUTSIDE RECORDS SUMMARY | 2023-12-05 11:52 | XMS_ITS | Encounter Summary ---
Author Name Unknown Organization [facility] Address [address] [place] [id number] Care Team Providers Care Law Office Assistant Name Role Phone Unavailable Primary Care Provider Unavailabl e Reason for Referral * Outpatient (Routine) - Closed Specialty Diagnoses / Procedures Referred By Contact Referred To Contact Gastroenterology and Hepatology Diagnoses Colic Biliary Farideh Rob M.D., M.P.H. [address] [place] [phone] [facility] Referral ID Status Reason Start Date Expiration Date Visits Re quested Visits Authorized [id number] Closed 02/18/2023 02/17/2026 1 1 Scheduling Instructions Please schedule anytime 1-5pm on TuesdayFebruary 21, or 8:30am-10:30am or 1-3pm on February 22. 15 min phone visit. Encounter Details Date Type Department Care Team (Latest Contact Info) Description 02/16/2023 Clinical Communication Division of Gastroenterology in [place], [place] [address] [place] [phone] Farideh Rob M.D., M.P.H. [address] [place] [phone] Social History Tobacco Use Types Packs/Day Years [...] as of this encounter Miscellaneous Notes * Addendum Note - Farideh Rob M.D., M.P.H. - 02/18/2023 10:44 AM CDT Addended by: FARIDEH ROB on: 02/18/2023 10:44 AM Modules accepted: Orders documented in this encounter Plan of Treatment Scheduled Referrals Name Type Priority Associated Diagnoses Order Schedule Gastroenterology and Hepatology office visit (clinic) Outpatient Referral Routine Colic Biliary Expected: 02/21/2023 (Approximate), Expires: 05/20/2024 documented as of this encounter Visit Diagnoses Diagnosis Colic Biliary- Primary documented in this encounter
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
--- OUTSIDE RECORDS SUMMARY | 2023-12-05 11:52 | XMS_ITS | Encounter Summary ---
Author Name Unknown Organization [facility] Address [address] [place] [address] Care Team Providers Care Financial Intern Name Role Phone Unavailable Primary Care Provider Unavailabl e Reason for Visit * Outpatient (Routine) - Closed Specialty Diagnoses / Procedures Referred By Paul merritt Referred To Contact General Surgery Diagnoses Colic Biliary Tayla Martinez M.D., M.P.H. [address] [place] [phone] [facility] Referral ID Status Reason Start Date Expiration Date V isits Requested Visits Authorized [id number] Closed Specialty Services Required 02/21/2023 02/21/2024 1 1 Encounter Details Date Type Department Care Team (Late st Contact Info) Description 03/24/2023 9:45 AM CDT Telemedicine Division of Endocrine and Metabolic Surgery in [place], [place] [address] [place] [phone] Yesis Hansen M.D. [address] [place] [phone] Colic Biliary Social History Tobacco Use Types [...] or relatives? Twice a week 03/24/2023 Attends Jehovah'S Witness Services Not on file 03/24 Do you belong to any clubs o r organizations such as judaism groups, unions, fraternal or athletic groups, or [...] medical care, and heating? Patient declined 03/24/2023 [facility] of Occupat ional [facility] - Occupational Stress Questionnaire Answer Date [...] AM CDT documented as of this encounter Consult Notes * Yessi Hansen M.D. - 03/24/2023 9:45 AM CDT Subjective Chief Complaint/ Reason for visit: This was a video visit from the office to the patient's home. The patient is referred by Gastroenterology for recurrent biliary colic and possible recent choledocholithiasis. History of Present Illness: Tiffany Casas is a 37 y.o. female who who had discussed goal less cystectomy last fall with her GI provider. She now has had another emergency room visit with significant epigastric pain. Imaging was obtained that showed a distended gallbladder and a widened common bile duct along with what appears to be gallstone in the gallbladder neck. In addition she was diagnosed with gastritis and is improving somewhat on a daily omeprazole. She also suffers from diarrhea and takes lots of Pepto-Bismol. She has undergone some workup for her diarrhea and another bug has been found that she can not recall what it was. She has a history of C diff but was negative at this time. The following portions of the patient???s history were reviewed and updated as appropriate: allergies, current medications, family history, medical, social and surgical history, and problem list. History of appendectomy, C-sections, in her chart it also mentions a history of rhabdomyolysis, obesity with a BMI somewhere between 30 and 35 per her report Review of Systems: Has reduced her diet significantly to avoid right upper quadrant pain. 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 Has significant morphine allergies with a itchy rash over her whole body. Oxycodone causes nausea.dilaudid works but appears to be med metabolized fast per her report. Objective: Physical Exam: General: This is a very pleasant, 37 y.o.-year-old patient, in no apparent distress. Skin: Warm and dry. The patient is anicteric. Chest: normal breathing effort Abdomen: Not examined during video visit Imaging: As above Assessment/Plan: #1 Symptomatic cholelithiasis, possible recent choledocholithiasis We have discussed the rationale for and the risk and benefits of cholecystectomy, including but notlimited to common bile duct injury or injury to surrounding organs. We have discussed the options of a laparoscopic or robotic approach. The patient voices understanding and wishes to proceed. Discussed the risks, benefits, and alternatives of the procedure and of possible blood transfusion,including the risk of exposure to COVID-19 within the facility. Discussed the necessity of other members of the healthcare team participating in the procedure. We have discussed that I may be asked to help out with other surgical procedures during a noncritical portions of the operation. All questions answered and consent given. We have scheduled her for a robotic cholecystectomy May 30 which is the next available date. If available, she would like to go earlier. Her preference is come here for cholecystectomy. We would like to review the labs obtained in her outside ED and she will work with the team to get those transferred here. If not, a CBC and CMP should be obtained to assess for persistent choledocholithiasis given her ongoing symptoms. #2 Ongoing diarrhea This is being addressed at an outside institution. I told her that would likely not necessarily getbetter from the gallbladder surgery. Given her history of C diff we will avoid antibiotics. #3 Likely gastritis Diagnosed in the outside emergency room and treated with PPI. Some of those symptoms seem to be improving. Will not use ibuprofen for postop pain control, may choose to use 1 dose of Toradol upon emergence.Answers submitted by the patient for this visit: General Review of Symptoms (Submitted on 03/24/2023) Fatigue: Yes Loss of appetite: Yes Visual problems: Yes No eye issues: Yes No ENT issues: Yes No heart issues: Yes Shortness of breath: Yes Heartburn: Yes Nausea: Yes Vomiting: Yes Constipation: Yes Diarrhea: Yes Muscle pain/stiffness: Yes Pain or stiffness in the joints: Yes No skin issues: Yes Headache: Yes Light-headedness: Yes Little interest or pleasure in doing things: Yes Feeling down, depressed, or hopeless: Yes Not being able to stop or control worrying: Yes No blood/lymph issues: Yes Menses change or abnormal: Yes Frequent urination: Yes Difficulty urinating: Yes Urgency: Yes Incontinence (urine leakage): Yes documented in this encounter Plan of Treatment Not on file documented as of this encounter Visit Diagnoses Diagnosis Colic Biliary documented in this encounter
--- OUTSIDE RECORDS SUMMARY | 2023-12-05 11:52 | XMS_ITS | Encounter Summary ---
Author Name Unknown Organization [facility] Address [address] [place] [address] Care Team Providers Care Assurance Engineer Name Role Phone Unavailable Primary Care Provider Unavailabl e Reason for Visit * Reason Onset Date Comments Pre-visit Intake 03/23/2023 Encounter Details Date Type Department Care Team (Latest Contact Info) Description 03/23/2023 1:00 PM CDT Clinical Communication Virtual Review in [place], [place] 200 [place], [place] [phone] Pre-visit Intake Social History Tobacco Use Types [...] or relatives? Twice a week 03/24/2023 Attends [employer] Services Not on file 03/24 Do you belong to any clubs o r organizations such as bahai groups, unions, fraternal or athletic groups, or [...] medical care, and heating? Patient declined 03/24/2023 [facility] of Occupat ional Health - Occupational [...] Employed and actively working without restrictions 03/24/2023 Sex and Gender Information Value Date [...]
--- OUTSIDE RECORDS SUMMARY | 2023-12-05 11:52 | XMS_ITS | Encounter Summary ---
Author Name Unknown Organization [facility] Address [address] [place] [address] Care Team Providers Care Research And Development Specialist Name Role Phone Unavailable Primary Care Provider Unavailabl e Encounter Details Date Type Department Care Team (Late st Contact Info) Description 05/06/2023 Clinical Communication Division of Endocrine and Metabolic Surgery in [place], [place] [address] [place] [phone] Yessi Hansen M.D. [address] [place] [phone] Social History Tobacco Use Types Packs/Day Years [...] or relatives? Twice a week 03/24/2023 Attends Bahai Services Not on file 03/24 Do you belong to any clubs o r organizations such as anabaptism groups, unions, fraternal or athletic groups, or [...] medical care, and heating? Patient declined 03/24/2023 [facility] of Occupat ional Health - Occupational [...] encounter Miscellaneous Notes * Addendum Note - Nelson Cordero M.D. - 05/10/2023 4:48 PM CDTAddended by: NELSON CORDERO on: 05/10/2023 04:48 PM Modules accepted: Orders * Telephone Encounter - Nelson Cordero M.D. - 05/10/2023 4:00 PM CDT Called and spoke with the patient regarding her visit to the ED yesterday evening. She reported that she ultimately was referred to urgent care due to the long wait time in the ED. She had labs checked, at least a CBC, which were reportedly normal. Unclear if she also had electrolytes/kidney function checked at that time. We do not currently have access to these via Care everywhere. She was given1 dose of IV Zofran and subsequently discharged home. She has since been able to keep down chicken noodle soup, small bites of pickle, a few pretzels, pineapple, water, and Gatorade. However, she is still extremely nauseous and like she has not not sitting at the time of her stomach which kept her up most of the night. She denies reflux symptoms. Her UOP seems appropriate just slightly darker than her normal. She had significant diarrhea following adding milk of magnesia and enema simultaneously over the weekend due to constipation. Her diarrhea has now resolved and she is having more normal stools still feels full/backed up. She has not used any narcotics for several days due to fear that this would e xacerbate her nausea and constipation. Discussed that she likely is dehydrated which may be exacerbating her nausea. Encouraged her to continue snacking on salty foods like pretzels/crackers and hydrating (water, Gatorade, Pedialyte, or Coca-Cola). We will renew her script for Akhil. Recommended continuing with a more gentle but consistent bowel regimen of 1-2 tablets of Senokot S BID for a few days until she feels her bowel habits are improving. I will call the patient tomorrow for an update on her progress. Patient was discussed with Dr. Hansen who is in agreement with the above assessment and plan. * Telephone Encounter - Diamante Womack R.N. - 05/09/2023 3:41 PM CDT SUBJECTIVE CHIEF COMPLAINT / REASON FOR CALL No chief complaint on file. ASSESSMENT Pt is s/p Robotic Cholecystectomy with Dr. Hansen on 05/05/23. Returned Mariela's call regarding wanting an antibiotic. She tells me she thinks she may have C. Diffinfection. She has been running a low-grade fever (99.6) for the past couple days. She tells me her incisions are dry and intact with a small amount of bruising. She had issues with constipation and took a laxative as recommended. She has not taken anymore laxatives and she is having 15+ dk brown watery diarrhea episodes today. She is having n/v multiple times today to the point she is dry heaving now. She tells me she feels very weak - she is shaky to stand and is dizzy just sitting in the chair. She has taken approximately 50-60 ounces of fluid in (water and one gatorade) today. She also states she is short of breath. She did take Tylenol down, but use of pain meds has been minimal with her nausea. PLAN Informed pt she needs to be evaluated in her local ER for dehydration and C Diff infection. She is calling her boyfriend to take her. Informed her she is not to drive - she will need to call an ambulance if her boyfriend can't take her. She understands. Disposition/Recommendation: recommended to report to the nearest emergency department. Information/Education: patient/caller able to teach back. Caller agreeable to plan of care: yes. The following references were used: nursing clinical judgement and provider Dr. Wild Cordero . * Telephone Encounter - Jeanine Sotelo - 05/09/2023 12:23 PM CDT Patient would possibly like an antibiotic prescribed. They said they spoke about going on an antibiotic with a member of Dr. Hansen's team. Please send to [facility]. Any questions - give them a call. * Telephone Encounter - Lakisha Guillaume P.A.-C., M.S. - 05/06/2023 10:56 AM CDT Spoke with patient. Oxycodone makes her nauseated and she has tolerated Dilaudid better in the past. She pretreats with Zofran. I have written new prescriptions for her. She is otherwise feeling well. * Telephone Encounter - Jeanine Sotelo - 05/06/2023 10:32 AM CDT Patient prefers Dilaudid instead of Oxycodone. Please sent this to the [facility]. She would also like a medication for nausea like Zofran. Thank you. documented in this encounter Plan of Treatment Not on file documented as of this encounter Visit Diagnoses Not on filedocumented in this encounter
--- OUTSIDE RECORDS SUMMARY | 2023-12-05 11:52 | XMS_ITS | Encounter Summary ---
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 [address] [place] [phone] Thanh Morrison, DESK PEN SET ASSEMBLER, [employer]PER[employer]OR [employer] [address] [place] [phone] Anesthesia Record Procedure Summary Procedure Name Responsible Anesthesiologist Anesthesia Start Time Anesthesia Stop Time ROBOTIC-ASSISTED MULTIPORT CHOLECYSTECTOMY. Gigi Mccollum M.D. 05/05/23 1148 05/05/23 1526 Events Date Time Event Comment 05/05/2023 1148 An Start Machine/Equipme nt Checked Infection Precautions Followed Procedure/Site Verified NPO Status Verified Supine Standard ASA Monitors Applied 1152 An Induction 1156 An Intubation 1158 Turnover to Proceduralist 1228 Proc Start 1232 Gas Insufflation 1510 Proc Fin 1511 Turnover to ANE Staff 1511 Airway Removal Criteria Met 1511 Extubation/Airway Removed 1515 an stop data 1526 An End I completed my handoff to the receiving staff during which we 1. Identified the patient 2. Identified the responsible provider 3. Reviewed the pertinent medical history 4. Discussed the surgical course 5. Reviewed intra-op anesthesia management and issues during anesthesia 6. Set expectations for post-procedure period 7. Allowed opportunity for questions and acknowledgement of understanding. Meds Name Total fentanyl injection 50 mcg/mL 350 mcg lidocaine 2% (mg) injection 100 mg rocuronium 10 mg/mL injection 150 mg ondansetron 4 mg/2 mL injection 4 mg sugammadex 100 mg/mL injection 200 mg propofol 10 mg/mL infusion 2,183.93 mg propofol 10 mg/mL injection 200 mg dexAMETHasone (DECADRON) injection 4 mg/ mL 8 mg heparin (porcine) injection 5,000 Units 5,000 Units indocyanine green 25 mg injection 2.5 mg ketorolac (TORADOL) injection 30 mg/mL 1 5 mg midazolam 1 mg/mL injection 2 mg Lactated Ringers Free Drip 700 mL * Agents No agents on file. * Blood No blood administrations on file. Lines, Drains, and Airways Type Details Placement Removal Peripheral IV Placement Date: 04/21 04/12; Placement Time: 1043; Catheter Size: 20 G; Orientation: Left; Location: Antecubital; Site Prep: Chlorhexidine (Preferred); Technique: Anatomical landmarks; Inserted by: [facility]; Insertion Attempts: 1; Removal Date: 05/05/23; Removal Time: 171; Removal Reason: Patient discharged 05/05/23 1043 by Gigi Bettencourt 05/05/23 1712 by Roshni Feldman R.N. ETT Placement Date: 04/21 04/12; Placement Time: 1156 (created via procedure documentation); Mask Ventilation: Easy mask; Type: Standard ETT; Single Lumen Tube Size: 7 mm; Cuffed: Yes; Blade Size: MAC 3; Location: Oral; Grade View: Grade 2A; Insertion Attempts: 1; Placement Verification: Bilateral breath sounds, Positive ETCO2, Symmetrical chest wall movement; Removal Date: 05/05/23; Removal Time: 1511 05/05/23 1156 by Thanh Morrison APRN, SU[employer]OR [employer] 05/05/23 1511 by Thanh Morrison APRN, [employer] NG/OG Tube 05/05/23; 1200; Orog astric; 18 Fr; Oral; 05/05/23; 1451 05/05/23 1200 by Thanh Morrison APRN, CRNA 05/05/23 1451 by Thanh Morrison APRN, CRNA Scope Sites 05/05/23; 1306; Abdo men; Left, Upper; Right, Upper; Right, Lateral; Right, Distal; Mastisol, steri-strips, bandaids; 06/26/23; [address]/05/23 1306 by Sharon Cullen M.S.Zayra., R.N. 06/26/232120 by Catherine Zhou RAmarisN. documented in this encounter Social History Tobacco Use Types Packs/Day Years [...] or relatives? Twice a week 03/24/2023 Attends [employer] Services Not on file 03/24 Do you [...] medical care, and heating? Patient declined 03/24/2023 [facility] - Occupational Stress [...] Date Recorded Dental: Regular Dentist Yes 03/24/20 23 Employment Answer Date Recorded Employment status Employed [...] AM CDT documented as of this encounter OR Notes * Anesthesia Postprocedure Evaluation - Gigi Mccollum M.D. - 05/05/2023 4:18 PM CDT Patient: Tiffany Casas Procedure Summary Date: 05/05/23 Room / Location: [place] [address] / [facility] in [place], [place] Anesthesia Start: 1148 Anesthesia Stop: 1526 Procedure: ROBOTIC-ASSISTED MULTIPORT CHOLECYSTECTOMY. Diagnosis: Stone Common Duct (Stone Common Duct [K80.50].) Providers: Yessi Hansen M.D. Responsible Provider: Gigi Mccollum M.D. Anesthesia Type: general ASA Status: 1 Anesthesia Type: general Last vitals Vitals Value Taken Time BP 123/81 05/05/23 1600 Temp 36.9 ??C 05/05/23 1529 Pulse 76 05/05/23 1615 Resp 12 05/05/23 1615 SpO2 97 % 05/05/23 1615 Please reference Vitals flowsheet for most recent vital signs. Anesthesia Post Evaluation Patient Disposition: dismissal Cardiovascular status: hemodynamics (HR & BP) acceptable Respiratory status: patent airway with spontaneous effort Temperature: normothermic Oxygen requirements: room air Level of consciousness: awake Pain score: pain adequately controlled and/or at baseline Post Op nausea/vomiting: none Hydration status: euvolemic * Anesthesia Procedure Notes - Thanh Morrison APRN, CRNA - 05/05/2023 12:17 PM CDTAssociated Order(s): Airway Airway Date/Time: 05/05/2023 11:56 AM Performed by: Thanh Morrison APRN, CRNA Authorized by: Gigi Mccollum M.D. Patient location during procedure: OR / Procedure Area PROCEDURE DETAILS: Mask difficulty assessment: easy mask Final airway type: direct laryngoscopy, intubation Laryngeal Manipulation: no Final airway difficulty of direct laryngoscopy (DL): 0-easy Final best view of glottic structures - Cormack/Lehane Score: grade 2A ETT location: oral Adult blade type: MAC 3 Adult tube size: 7 Adult ETT distance at teeth/gum: 21 Oral tube type: standard ETT Cuffed: yes Number of attempt to successful placement: 1 Airway confirmation: bilateral breath sounds, positive ETCO2 and bilateral chest rise Other previous techniques attempted: none PRE PROCEDURE DETAILS: Pre evaluation for airway management: procedure Urgency: elective Preop assessment of probable difficulty: no difficulty anticipated Preoxygenation: bag valve mask SEDATION / ANESTHESIA Anesthesia method: anesthesia POST PROCEDURE DETAILS: Procedure outcome: successful * Anesthesia Preprocedure Evaluation - Gigi Mccollum M.D. - 05/05/2023 11:11 AM CDT Preprocedure Anesthesia & H&P Assessment Procedure Summary Date/Time: 05/05/23 114 Procedure: ROBOTIC-ASSISTED MULTIPORT CHOLECYSTECTOMY. Diagnosis: Stone Common Duct [K80.50] Pre-op diagnosis: Stone Common Duct [K80.50]. Location: [place] [address] / [facility] in [place], [place] Providers: Yessi Hansen M.D. Pertinent components of the patient's history including current problem list, medical history, surgical history, family history, social history, medications and allergies were reviewed. Present illness and pre-op diagnosis were confirmed. The planned surgery / procedure was verified with the patient / legal guardian. The patient's general health condition remains unchanged RELEVANT COMORBID CONDITIONS ANESTHESIA (+) Post Operative Nausea/Vomiting Digestive (+) Cyst Pancreas (+) Stone Common Duct Other (+) Anxiety (+) Depressive Disorder OBJECTIVE PHYSICAL EXAMINATION Airway (HEENT) Mallampati: II TM Distance: >3 FB Neck ROM: Full Cardiovascular Rhythm: Regular Cardiovascular Assessment: cardiovascular normal Pulmonary Pulmonary Assessment: Clear General / Constitutional Constitutional Assessment: Normal ASSESSMENT / PLAN ANESTHESIA PLAN ASA: 1 Anesthesia Plan: general Patient seen and allergies reviewed, anesthesia plan and risks discussed directly with patient /legal guardian or through an lead miner. Risks/Benefits/Alternatives of Blood transfusion discussed with patient / legal guardian, includingan opportunity to ask questions and/or decline some or all transfusion therapies. The patient / legal guardian consented to the use of all blood products, as deemed medically necessary Approval to Proceed: approved for anesthesia documented in this encounter Plan of Treatment Not on file documented as of this encounter Procedures Procedure Name Priority Date/Time Associated Diagnosis Comments LDA ANE ENDOTRACHEAL AIRWAY Routine 05/05/2023 11:56 AM CDT documented in this encounter Results * LDA ANE ENDOTRACHEAL AIRWAY (05/05/2023 11:56 AM CDT) Narrative Thanh Morrison APRN, CRNA - 05/05/2023 11:56 AM CDT Thanh Morrison APRN, CRNA ? 05/05/2023 12:19 PM Airway Date/Time: 05/05/2023 11:56 AM Performed by: Thanh Morrison APRN, CRNA Authorized by: Gigi Mccollum M.D. ?? Patient location during procedure: OR / Procedure Area PROCEDURE DETAILS: Mask difficulty assessment: easy mask Final airway type: direct laryngoscopy, intubation Laryngeal Manipulation: no ?? Final airway difficulty of direct laryngoscopy (DL): 0-easy Final best view of glottic structures - Cormack/Lehane Score: grade 2A ETT location: oral Adult blade type: MAC 3 Adult tube size: 7 Adult ETT distance at teeth/gum: 21 Oral tube type: standard ETT Cuffed: yes Number of attempt to successful placement: 1 Airway confirmation: bilateral breath sounds, positive ETCO2 and bilateral chest rise Other previous techniques attempted: none PRE PROCEDURE DETAILS: Pre evaluation for airway management: procedure Urgency: elective Preop assessment of probable difficulty: no difficulty anticipated Preoxygenation: bag valve mask SEDATION / ANESTHESIA Anesthesia method: anesthesia POST PROCEDURE DETAILS: ? Procedure outcome: successful ?? Gigi Mccollum M.D. ANESTHESIA ORDERAB LES documented in this encounter Visit Diagnoses Not on filedocumented in this encounter Administered Medications Inactive Administered Medications - up to 3 most recent administrations Medication Order MAR Action Action Date Dose Rate Site dexAMETHasone injection (DECADRON) intravenous, As needed, Starting on Diana 05/05/23 at 1202, Anesthesia Intra-op Given 05/05/2023 12:02 PM CDT 8 mg fentaNYL injection (SUBLIMAZE) intravenous, As needed, Starting on Diana 05/05/23 at 1158, Anesthesia Intra-op Given 05/05/2023 3:01 PM CDT 100 mcg Given 05/05/2023 12:32 PM CDT 100 mcg Given 05/05/2023 11:52 AM CDT 150 mcg heparin (porcine) injection 5,000 Units 5,000 Units, subcutaneous, Once, On Diana 05/05/23 at 1100, For 1 dose, Intra-Op, Administer prior to induction of anesthesia. Given 05/05/2023 12:02 PM CDT 5,000 Units indocyanine green injection (IC-GREEN) intravenous, As needed, Starting on Diana 05/05/23 at 1150, Anesthesia Intra-op Given 05/05/2023 11:50 AM CDT 2.5 mg ketorolac injection (TORADOL) intravenous, As needed, Starting on Diana 05/05/23 at 1451, Anesthesia Intra-op Given 05/05/2023 2:51 PM CDT 15 mg lactated ringers intravenous, Continuous Infusion: Per Instructions PRN, Starting on Diana 05/05/23 at 1148, Anesthesia Intra-op New Bag 05/05/2023 11:48 AM CDT lidocaine (PF) (cardiac) injection intravenous, As needed, Starting on Diana 05/05/23 at 1158, Anesthesia Intra-op Given 05/05/2023 11:52 AM CDT 100 mg midazolam (PF) injection (VERSED) intravenous, As needed, Starting on Diana 05/05/23 at 1517, Anesthesia Intra-op Given 05/05/2023 3:17 PM CDT 2 mg ondansetron (PF) injection (ZOFRAN) intravenous, As needed, Starting on Diana 05/05/23 at 1202, Anesthesia Intra-op Given 05/05/2023 12:02 PM CDT 4 mg propofol 10 mg/mL infusion (DIPRIVAN) intravenous, Continuous Infusion: Per Instructions PRN, Starting on Diana 05/05/23 at 1158, Anesthesia Intra-op Rate/Dose Change 05/05/2023 2:31 PM CDT 75 mcg/kg/min 41.625 mL/hr New Bag 05/05/2023 1:26 PM CDT 140 mcg/kg/min 77.7 mL/h r New Bag 05/05/2023 11:52 AM CDT 140 mcg/kg/min 77.7 mL/ hr propofoL injection (DIPRIVAN) intravenous, As needed, Starting on Diana 05/05/23 at 1158, Anesthesia Intra-op Given 05/05/2023 11:53 AM CDT 200 mg rocuronium injection (ZEMURON) intravenous, As needed, Starting on Diana 05/05/23 at 1158, Anesthesia Intra-op Given 05/05/2023 2:25 PM CDT 10 mg Given 05/05/2023 2:03 PM CDT 10 mg Given 05/05/2023 1:46 PM CDT 10 mg sugammadex injection (BRIDION) intravenous, As needed, Starting on Diana 05/05/23 at 1451, Anesthesia Intra-op Given 05/05/2023 2:51 PM CDT 200 mg documented in this encounter
[2023-12-05 15:47] LABS: Bacterial Vaginosis* NEGATIVE (No Detected); Candida glab/krus NOT DETECTED (No Detected); Candida species NOT DETECTED (No Detected); Trichomonas vaginalis NOT DETECTED (No Detected)
== END 2023-12-05 11:31 | disposition home or self-care (01) ==
LOC: NFLDREF 11:49
PROVIDERS: PCP Internal Medicine; Visit Provider Obstetrics & Gynecology
DX: N89.8 Other specified noninflammatory disorders of vagina (principal); Z11.3 Encounter for screening for infections with a predominantly sexual mode of transmission
CPT/HCPCS: 81513; 87481; 87491; 87591; 87661

== ENCOUNTER 2024-04-13 10:03 | Outpatient (CLI) | payer MEDICAID, SELFPAY ==
--- OUTSIDE RECORDS SUMMARY | 2024-04-13 10:07 | XMS_ITS | Continuity of Care Document ---
Author Name [facility] Organization [facility] Care Team Providers Care Roller Leveler Operator Name Role Phone [facility] Unavailable Unavailable Social History Combined list of available smoking, tobacco, and other social history from Department of Defense and Veterans Affairs facilities. Social History Type Response Date Comment Sourc e This section is an empty social history section. [facility]
--- OUTSIDE RECORDS SUMMARY | 2024-04-13 10:07 | XMS_ITS | Referral Summary ---
Author Organization [facility] Address [address] [place] [address] Care Team Providers Care Machine Brusher Name Role Phone Unavailable Primary Care Provider Unavailabl e Source Comments Patient records contain information from all sites at [facility]. For routine questions regarding patient records, call [phone] during business hours, M-F 8:00 AM - 5:00 PM Central Time. Record requests for emergency care only can be directed to [phone] at any time.[facility] Allergies Active Allergy Reactions Criticality Noted Date Comments Citalopram Other (see comments) High 02/16/2023 Morphine Itching Low 03/06/2016 Other reaction(s): Itching Prochlorperazine Anxiety Low 03/06/2016 Sumatriptan Anxiety Low 02/16/2023 Medications Medication Sig Dispensed Refills Start Date End Date Status minoxidiL (LONITEN) 2.5 mg tablet Take 0.625 mg by mouth. 02/26/2022 Active phentermine (ADIPEX-P) 37.5 mg tablet Take 56.25 mg by mouth. 04/20/2022 Active minoxidiL (LONITEN) 2.5 mg tablet Take 2.5 mg by mouth daily. 11/02/2022 Active ALPRAZolam (XANAX) 0.5 mg tablet Take 1 mg by mouth as needed. 10/28/2022 Active finasteride (PROSCAR) 5 mg tablet Take 2.5 mg by mouth daily. 03/09/2023 Active valACYclovir (VALTREX) 1000 mg tablet Take 1,000 mg by mouth daily. 02/01/2023 Active topiramate (TOPAMAX) 25 mg tablet Take 25 mg by mouth 2 (two) times a day. 03/04/2023 Active acetaminophen (TYLENOL) 500 mg tablet Take 2 tablets (1,000 mg total) by mouth every 6 (six) hours for 5 days. Take 2 tablets up to four times daily for pain 0 05/05/2023 Active ibuprofen (ADVIL,MOTRIN) 200 mg tablet Take 2 tablets (400 mg total) by mouth every 6 (six) hours as needed for pain for up to 3 days. 05/05/2023 Active HYDROmorphone (DILAUDID) 2 mg tabletIndications:Acu te Pain Take 1 tablet (2 mg total) by mouth every 4 (four) hours as needed for pain Indication: Acute Pain. 8 tablet 05/06/2023 Active escitalopram (LEXAPRO) 5 mg tablet Take 5 mg by mouth daily. 5 to 10 mg daily Active OLANZapine (ZyPREXA) 5 mg tablet Take 5 mg by mouth at bedtime. Active Active Problems Problem Noted Date Diagnosed [...] or relatives? Twice a week 03/24/2023 Attends [employer] Services Not on file 03/24 Do you belong to any clubs o r organizations such as gnosticist groups, unions, fraternal or athletic groups, or [...] medical care, and heating? Patient declined 03/24/2023 [facility] - Occupational [...] on file Medical Devices Implanted Type Area Manager Private Device Identifier Shelf Expiration Date Model / Serial / Lot Clp Jennifer Pl Lg - [id number] Implanted:Qty : 1 on 05/05/2023 by Yessi Culver M.D. at [facility] Hardware e.g. pins/screws/ rods N/A: [employer] [id number] / / Explanted Type Area Manager Private Device Identifier Shelf Expiration Date Model / Serial / Lot 5 Portuguese Double-Lumen Power Picc Solo Implanted:02/20 (Quantity not on file) Vascular Other Left: Arm Description:Body Location - UppExtrm L. Device Status Text - VascOther. Procedures Procedure Name Priority Date/Time Associated Diagnosis Comments BASIC METABOLIC PANEL, S/P STAT 06/26/2023 6:58 PM CDT HIV-1/-2 AG AND AB SCREEN Routine 03/31/2016 12:20 PM CDT from Last 3 Months or Most Recently Relevant to Health Maintenance Results * (ABNORMAL) Basic Metabolic Panel (06/26/2023 6:58 PM CDT) Potassium, P 3.5(L) 3.6 - 5.2 mmol/L [...] CDT Primo Copeland M.D. LAB BLOOD ADD-ON [facility] [address] [place] [address], [facility] [address] [place] [address] * HIV-1/-2 Ag and Ab Screen (03/31/2016 12:20 PM CDT) [facility] HIV-1/-2 Ag and Ab Screen, S Negative Negative [facility] Comment: [facility] ? Negative result does not rule out HIV infection. If ? acute HIV infection is suspected in a high-risk ? individual, submit plasma specimen for HIV-1 RNA ? quantification test (HIVDQ) and/or HIV-2 DNA/RNA ? test (FHV2Q). ? 03/31/2016 12:2 0 PM CDT 03/31/2016 12:20 PM CDT Narrative [facility] - 03/31/2016 9:28 PM CDT Drawn From [facility] Anna Maurer P.A.-C. LAB MICROBIOLOGY - BLOOD ORDERABLES [facility] [address] [place] [address], [facility] from Last 3 Months or Most Recently Rele[place] [phone]
--- OUTSIDE RECORDS SUMMARY | 2024-04-13 10:07 | XMS_ITS | Clinical Summary ---
Author Organization [facility] Address [address] [place] [address] Care Team Providers Care Iso Coordinator Name Role Phone Unavailable Primary Care Provider Unavailabl e Source Comments Patient records contain information from all sites at [facility]. For routine questions regarding patient records, call [phone] during business hours, M-F 8:00 AM - 5:00 PM Central Time. Record requests for emergency care only can be directed to [phone] at any time.[facility] Allergies Active Allergy Reactions Criticality Noted Date [...] any clubs o r organizations such as druze groups, unions, fraternal or athletic groups, or [...] Done Comments Depression Monitoring (PHQ-9) 1985 Hepatitis C Screening 1985 Lipid (Cholesterol) Screening 1985 Hepatitis B Vaccines (1 of 3 - 19+ 3-dose series) 2004 Cervical Cancer Screening 07/01/20202016 (Performed elsewhere) COVID-19 Vaccine (2022-24 season) 2023 Influenza Vaccine (#1) 2023 0, 10/08/2019, 09/26/2019, [...] this topic Medical Devices Implanted Type Area Product Steward Device Identifier Shelf Expiration Date Model / Serial / Lot Clp Hmol Plmr Lg - [id number] Implanted:Qty : 1 on 05/05/2023 by Yessi Culver M.D. at [facility] Hardware e.g. pins/screws/ rods N/A: [employer]dom[employer] [id number] / / Explanted Type Area Product Steward Device Identifier Shelf Expiration Date Model / Serial / Lot 5 Venezuelan Double-Lumen Power Picc Solo Implanted:02/20 (Quantity not [...] Metabolic Panel (06/26/2023 6:58 PM CDT) Pathologist [facility] Potassium, P 3.5(L) 3.6 - 5.2 mmol/L [...] CDT Primo Copeland M.D. LAB BLOOD ADD-ON [facility] [address] [place] [address], [facility] [address] [place] [address] * HIV-1/-2 Ag and Ab Screen (03/31/2016 12:20 PM CDT) Pathologist [facility] HIV-1/-2 Ag and Ab Screen, S Negative Negative [facility] Comment: Drawn From [facility] ? Negative result does not rule out HIV infection. If ? acute HIV infection is suspected in a high-risk ? individual, submit plasma specimen for HIV-1 RNA ? quantification test (HIVDQ) and/or HIV-2 DNA/RNA ? test (FHV2Q). ? 03/31/2016 12:2 0 PM CDT 03/31/2016 12:20 PM CDT Narrative [facility] - 03/31/2016 9:28 PM CDT Drawn From [facility] Anna Maurer P.A.-C. LAB MICROBIOLOGY - BLOOD ORDERABLES [facility] [address] from Last 3 Months or Most Recently Relevant to Health Maintenance
--- OUTSIDE RECORDS SUMMARY | 2024-04-13 10:08 | XMS_ITS ---
Author Organization [facility] Address [address] [place] [address] Care Team Providers Care Laborer Brush Clearing Name Role Phone Unavailable Unavailable Unavailable Surgery Details Not on file Complications Check Surgery Details section. Procedure Estimated Blood Loss Check Surgery Details section. Procedure Findings Check Surgery Details section. Procedure Specimens Taken Check Surgery Details section.
[2024-04-13 12:33] LABS: Chlamydia DNA Amplified* NOT DETECTED (No Detected); GC DNA Amplified* NOT DETECTED (No Detected)
== END 2024-04-13 10:04 | disposition home or self-care (01) ==
LOC: NFLDREF 10:03
PROVIDERS: PCP Internal Medicine; Visit Provider Advanced Practice Midwife
DX: N89.8 Other specified noninflammatory disorders of vagina (principal); Z11.3 Encounter for screening for infections with a predominantly sexual mode of transmission
CPT/HCPCS: 87491; 87591

== ENCOUNTER 2024-07-05 14:31 | Emergency (ER) | payer MEDICAID, SELFPAY ==
[2024-07-05 14:37] VITALS: BP 110/67; PULSE 81; RESP 18; TEMP 36.7; O2SAT 100; BMI 29.1
--- NOTE | 2024-07-05 15:10 | CRLHL7_ITS ---
For Patients: As a result of the Century Cures Act, medical imaging exams and procedure reports are released immediately into your electronic medical record. You may view this report before your referring provider. If you have questions, please contact your health care provider. Indication: Left foot pain at bases of 2nd and 3rd digits. Technique: Left foot 3 views. Comparison: None. Findings: Bones: Alignment is normal. No fractures or bone lesions. Plantar calcaneal and Achilles insertional enthesophyte. Joint spaces: Joint spaces are well maintained. No degenerative changes. Soft tissues: Unremarkable. Impression: No findings to explain pain. Dictated by Aleena Arenas MD @ 07/05/2024 3:40:19 PM (Electronically Signed)
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
--- OUTSIDE RECORDS SUMMARY | 2024-07-05 16:14 | XMS_ITS | Continuity of Care Document ---
Author Name [facility] Organization [facility] Care Team Providers Care Rivet Spinner Name Role Phone [facility] Unavailable Unavailable Social History Combined list of available smoking, tobacco, and other social history from Department of Defense and Veterans Affairs facilities. Social History Type Response Date Comment Sourc e This section is an empty social history section. [facility]
--- OUTSIDE RECORDS SUMMARY | 2024-07-05 16:14 | XMS_ITS ---
Author Organization [facility] Address [address] [place] [address] Care Team Providers Care Physical Science Technician Name Role Phone Unavailable Unavailable Unavailable Surgery Details Not on file Complications Check Surgery Details section. Procedure Estimated Blood Loss Check Surgery Details section. Procedure Findings Check Surgery Details section. Procedure Specimens Taken Check Surgery Details section.
--- OUTSIDE RECORDS SUMMARY | 2024-07-05 16:14 | XMS_ITS | Clinical Summary ---
Author Organization [facility] Address [address] [place] [address] Care Team Providers Care Fitness Centre Manager Name Role Phone Unavailable Primary Care Provider Unavailabl e Source Comments Patient records contain information from all sites at [facility]. For routine questions regarding patient records, call [phone] during business hours, M-F 8:00 AM - 5:00 PM Central Time. Record requests for emergency care only can be directed to [phone] at any time.[facility] Allergies Active Allergy Reactions Criticality Noted [...] or relatives? Twice a week 03/24/2023 Attends [employer] Not on file 03/24 Do you belong to any clubs o r organizations such as pentecostal groups, unions, fraternal or athletic groups, or [...] medical care, and heating? Patient declined 03/24/2023 [facility] Occupat ional Health - Occupational Stress [...] Cancer Screening 07/01/20202016 (Performed elsewhere) COVID-19 Vaccine ( season) 2023 Glucose Test for Med Monitoring 06/26/2024 06/26/2023, 01/13/2017, 05/13/2016, Additional history exists Influenza Vaccine (#1) 2024 , 10/08/2019, 09/26/2019, Additional history exists DTaP,Tdap,and Td Vaccines (4 - Td or Tdap) 11/09/2027 11/09/2017, 12/09/2014, 05/09/2008 HIV Screening Completed 03/31/2016, 03/07/2016 HPV Vaccines Aged Out No longer eligi ble based on patient's age to complete this topic Pneumococcal vaccine (0-64 years) Aged Out No longer eligible based on patient's age to complete this topic Medical Devices Implanted Type Area Beef Selector Device Identifier Shelf Expiration Date Model / Serial / Lot Clp Hmol Plmr Lg - [id number] Implanted:Qty : 1 on 05/05/2023 by Yessi Culver M.D. at [facility] Hardware e.g. pins/screws/ rods N/A: Abdom[employer] [id number] / / Explanted Type Area Beef Selector Device Identifier Shelf Expiration Date Model / Serial / Lot 5 Malay Double-Lumen Power Picc Solo Implanted:02/20 (Quantity not [...] Metabolic Panel (06/26/2023 6:58 PM CDT) Pathologist [facility] Potassium, P 3.5(L) 3.6 - [...] CDT Primo Copeland M.D. LAB BLOOD ADD-ON [facility] [place] [address] [place] [address], [facility] [address] [place] [address] * HIV-1/-2 Ag and Ab Screen (03/31/2016 12:20 PM CDT) Pathologist [facility] HIV-1/-2 Ag and Ab Screen, S Negative Negative [facility] [place] Comment: Drawn From [facility] ? Negative result does not rule out HIV infection. If ? acute HIV infection is suspected in a high-risk ? individual, submit plasma specimen for HIV-1 RNA ? quantification test (HIVDQ) and/or HIV-2 DNA/RNA ? test (FHV2Q). ? 03/31/2016 12:2 0 PM CDT 03/31/2016 12:20 PM CDT Narrative [facility] [place] - 03/31/2016 9:28 PM CDT Drawn From PICC Anna Maurer P.A.-C. LAB MICROBIOLOGY - BLOOD ORDERABLES [facility] [place] [address] from Last 3 Months or Most Recently Relevant to Health Maintenance
--- OUTSIDE RECORDS SUMMARY | 2024-07-05 16:14 | XMS_ITS | Referral Summary ---
Author Organization [facility] Address [address] [place] [address] Care Team Providers Care Cam Milling Machine Operator Name Role Phone Unavailable Primary Care Provider Unavailabl e Source Comments Patient records contain information from all sites at [facility]. For routine questions regarding patient records, call [phone] during business hours, M-F 8:00 AM - 5:00 PM Central Time. Record requests for emergency care only can be directed to [phone] at any time.[facility] Allergies Active Allergy Reactions Criticality [...] or relatives? Twice a week 03/24/2023 Attends [employer] Services Not on file 03/24 Do you belong to any clubs o r organizations such as uatsdin groups, unions, fraternal or athletic groups, or [...] medical care, and heating? Patient declined 03/24/2023 [facility] Occupat ional Health - [...] on file Medical Devices Implanted Type Area Shop Hand Device Identifier Shelf Expiration Date Model / Serial / Lot Clp Jennifer Pl Lg - [id number] Implanted:Qty : 1 on 05/05/2023 by Yessi Culver M.D. at [facility] Hardware e.g. pins/screws/ rods N/A: Abdomen [employer] [id number] / / Explanted Type Area Shop Hand Device Identifier Shelf Expiration Date Model / Serial / Lot 5 Turkmen Double-Lumen Power Picc Solo Implanted:02/20 (Quantity not [...] CDT Primo Copeland M.D. LAB BLOOD ADD-ON [facility] [place] [address] [place] [address], [facility] [address] [place] [address] * HIV-1/-2 Ag and Ab Screen (03/31/2016 12:20 PM CDT) [facility] HIV-1/-2 Ag and Ab Screen, S Negative Negative [facility] [place] Comment: [facility] ? Negative result does not rule out HIV infection. If ? acute HIV infection is suspected in a high-risk ? individual, submit plasma specimen for HIV-1 RNA ? quantification test (HIVDQ) and/or HIV-2 DNA/RNA ? test (FHV2Q). ? 03/31/2016 12:2 0 PM CDT 03/31/2016 12:20 PM CDT Narrative [facility] [place] - 03/31/2016 9:28 PM CDT Drawn From [facility] Anna Maurer P.A.-C. LAB MICROBIOLOGY - BLOOD ORDERABLES [facility] [place] [address] [place] [address], [facility] from Last 3 Months or Most Recently Relevant [place] [phone]
== END 2024-07-05 16:12 | disposition home or self-care (01) ==
PROVIDERS: Emergency Provider Student in an Organized Health Care Education/Training Program; PCP Internal Medicine
DX: S91.312A Laceration without foreign body, left foot, initial encounter (principal); W20.8XXA Other cause of strike by thrown, projected or falling object, initial encounter
CPT/HCPCS: 73630; 99282; 99283

== ENCOUNTER 2024-09-28 16:32 | Emergency (ER) | payer MEDICAID, SELFPAY ==
[2024-09-28 17:02] VITALS: BP 118/87; PULSE 100; RESP 18; TEMP 36.2; O2SAT 97; BMI 28.9
[2024-09-28 17:06] VITALS: PULSE 95; O2SAT 97
[2024-09-28 17:07] VITALS: BP 118/87; PULSE 109; O2SAT 98
--- NOTE | 2024-09-28 17:17 | CRLHL7_ITS ---
For Patients: As a result of the Century Cures Act, medical imaging exams and procedure reports are released immediately into your electronic medical record. You may view this report before your referring provider. If you have questions, please contact your health care provider. Indication: NAUSEA, DIFFUSE UPPER ABD PAIN Technique: CT abdomen/pelvis with IV contrast, 88 mL Isovue 370 Comparison: CT abdomen/pelvis on February 16, 2023 Findings: Lower thorax: Unremarkable Abdomen/pelvis: The liver is unremarkable in appearance. Postsurgical changes of cholecystectomy with expected mild postsurgical biliary duct dilatation. The spleen is unremarkable in appearance. Similar-appearing coarse calcification in the pancreatic tail, likely sequela of remote pancreatitis; otherwise, the pancreas is unremarkable. Similar-appearing 2 centimeter low-density right adrenal nodule with some faint peripheral calcifications. No left adrenal nodules. The kidneys are normal in size and perfused in a normal fashion. Similar-appearing cortical scarring along the posterior aspect of the upper pole of the left kidney with some dystrophic calcifications, unchanged. No renal calculi or hydroureteronephrosis. The bladder is unremarkable in appearance. The uterus is within normal limits in size. There is some heterogeneous attenuation of the myometrium with indistinctness of the endometrium, of uncertain clinical significance. The bilateral ovaries are within normal limits in appearance with likely small corpus luteal cysts bilaterally. No suspicious adnexal lesions. There is no evidence of bowel obstruction or inflammation. There are some intraluminal hyperdensities seen in the small bowel in the left abdomen, correlate with ingestion history. Status post appendectomy. No free fluid or free air. No abscess. No abdominopelvic lymphadenopathy. The vasculature is unremarkable. Soft tissue/musculoskeletal: Unremarkable Impression: 1. No CT evidence of an acute process involving the abdomen or pelvis. 2. There is some heterogeneous attenuation of the myometrium with indistinctness of the endometrium, of uncertain clinical significance. Recommend pelvic ultrasound for further assessment. 3. Additional incidental findings as detailed above. Please note that all CT scans at this facility use dose modulation, iterative reconstruction, and/or weight-based dosing when appropriate to reduce radiation dose to as low as reasonably achievable. Dictated by Davon Cool MD @ 09/28/2024 8:07:48 PM (Electronically Signed)
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
--- OUTSIDE RECORDS SUMMARY | 2024-09-28 17:31 | XMS_ITS | Referral Summary ---
Author Organization [facility] Address [address] [place] [address] Care Team Providers Care Database Modeler Name Role Phone Unavailable Primary Care Provider Unavailabl e Source Comments Patient records contain information from all sites at [facility]. For routine questions regarding patient records, call [phone] during business hours, M-F 8:00 AM - 5:00 PM Central Time. Record requests for emergency care only can be directed to [phone] at any time.[facility] Allergies Active Allergy Reactions Criticality Noted Date Comments Citalopram Other (see comments) High 02/16/2023 Morphine Itching Low 03/06/2016 Other reaction(s): Itching Prochlorperazine Anxiety Low 03/06/2016 Sumatriptan Anxiety Low 02/16/2023 Medications * This document contains information received from the source organization and may not represent a complete record from that organization. minoxidiL (LONITEN) 2.5 mg tablet Take 0.625 [...] days. 05/05/2023 Active HYDROmorphone (DILAUDID) 2 mg tabletIndicatio ns:Acute Pain Take 1 tablet (2 mg total) [...] Immunizations Name Administration Dates Next Due Influenza TIV (IM) 09/21/2011,08/19/2010, 006 Influenza, Seasonal, Injectable 08/19/2010 Tdap 11/09/2017,12/09/2014,05/09/2008 influenza trivalent vaccine (6 months and older)(PF) 09/17/2014,10/31/2013,09/21/2011 influenza vaccine quad (FLUZONE/FLUARIX) (6 months and older)(PF) 09/17/2020,10/08/2019,09/26/2019, 018,09/28/2017,08/26/2016,10/24/2015,,10/31/2013,09/21/2011,08/19/2010 Social History Tobacco Use Types Packs/Day Years [...] or relatives? Twice a week 03/24/2023 Attends Protestant Services Not on file 03/24 Do you belong to any clubs o r organizations such as sikhism groups, unions, fraTrueInsider or athletic groups, or school groups? No [...] medical care, and heating? Patient declined 03/24/2023 [facility]ational Stress Questionnaire [...] have received? Some college, no degree 03/24/2023 Comments No Sex and Gender Information Value Date Recorded Sex Assigned at Female 03/24/2023 9:03 AM CDT Legal Sex Female 10:32 PM [employer] Gender Identity Female 03/24/2023 9:03 AM CDT [...] on file Medical Devices Implanted Type Area Leach Cell Operator Device Identifier Shelf Expiration Date Model / Serial / Lot Clp Hmol Plmr Lg - [id number] Implanted:Qty : 1 on 05/05/2023 by Yessi Culver M.D. at [facility] Hardware e.g. pins/screws/ rods N/A: Abdomen Teleflex [id number] / / Explanted Type Area Leach Cell Operator Device Identifier Shelf Expiration Date Model / Serial / Lot 5 Icelandic Double-Lumen Power Picc Solo Implanted:02/20 (Quantity not [...] CDT Primo Copeland M.D. LAB BLOOD ADD-ON Final Resul t [facility] [address] [place] [address], [facility] [address] [place] [address] * HIV-1/-2 Ag and Ab Screen (03/31/2016 12:20 PM CDT) Pathologist [facility] HIV-1/-2 Ag and Ab Screen, S Negative Negative [facility] Comment: Drawn From PICC ? Negative result does not rule out HIV infection. If ? acute HIV infection is suspected in a high-risk ? individual, submit plasma specimen for HIV-1 RNA ? quantification test (HIVDQ) and/or HIV-2 DNA/RNA ? test (FHV2Q). ? 03/31/2016 12:2 0 PM CDT 03/31/2016 12:20 PM CDT Narrative [facility] - 03/31/2016 9:28 PM CDT Drawn From PICC Anna Maurer P.A.-C. LAB MICROBIOLOGY - BLOOD ORDERABLES Final Result [facility] [address] [place] [address], [facility] from Last 3 Months or Most Recently Relevant to Health Maintenance Insurance [facility]
--- OUTSIDE RECORDS SUMMARY | 2024-09-28 17:31 | XMS_ITS | Clinical Summary ---
Author Organization [facility] Address [address] [place] [address] Care Team Providers Care Salesperson Burial Needs Name Role Phone Unavailable Primary Care Provider Unavailabl e Source Comments Patient records contain information from all sites at [facility]. For routine questions regarding patient records, call [phone] during business hours, M-F 8:00 AM - 5:00 PM Central Time. Record requests for emergency care only can be directed to [phone] at any time.[facility] Allergies Active Allergy Reactions Criticality Noted [...] or relatives? Twice a week 03/24/2023 Attends Christianity Services Not on file 03/24 Do you belong to any clubs o r organizations such as adventist groups, unions, fraLookMedBook or athletic groups, or school groups? 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 Gender Identity Female 03/24/2023 9:03 AM CDT [...] of 3 - 19+ 3-dose series) 2004 Cervical/Vaginal Cancer Screening 07/01/2020 07/01/2017 (Performed elsewhere) Depression Monitoring (PHQ-9 for quality tracking) 11/21/2023 Glucose Test for Med Monitoring 06/26/2024 06/26/2023, 01/13/2017, 05/13/2016, Additional history exists COVID-19 Vaccine ( season) 2024 Influenza Vaccine (#1) 2024 0, 10/08/2019, 09/26/2019, Additional history exists DTaP,Tdap,and Td Vaccines (4 - Td or Tdap) 11/09/2027 11/09/2017, 12/09/2014, 05/09/2008 HIV Screening Completed 03/31/2016, 03/07/2016 HPV Vaccines Aged Out No longer eligi ble based on patient's age to complete this topic IPV Vaccines Aged Out No longer eligi ble based on patient's age to complete this topic Pneumococcal vaccine (0-64 years) Aged Out No longer eligible based on patient's age to complete this topic Medical Devices Implanted Type Area Dramatic Teacher Device Identifier Shelf Expiration Date Model / Serial / Lot Clp Hmol Plmr Lg - [id number] Implanted:Qty : 1 on 05/05/2023 by Yessi Culver M.D. at [facility] Hardware e.g. pins/screws/ rods N/A: Abdomen [employer] [id number] / / Explanted Type Area Dramatic Teacher Device Identifier Shelf Expiration Date Model / Serial / Lot 5 Australian Double-Lumen Power Picc Solo Implanted:02/20 (Quantity not [...] Metabolic Panel (06/26/2023 6:58 PM CDT) Pathologist [facility] Potassium, P 3.5(L) 3.6 - 5.2 mmol/L [...] 6:58 PM CDT 06/26/2023 7:13 PM CDT us Primo Copeland M.D. LAB BLOOD ADD-ON Final Resul t [facility] [address] [place] [address], [place] [facility] [address] [place] [address] * HIV-1/-2 Ag and Ab Screen (03/31/2016 12:20 PM CDT) HIV-1/-2 Ag and Ab Screen, S Negative Negative [facility] Comment: Drawn From [facility] ? Negative result does not rule out HIV infection. If ? acute HIV infection is suspected in a high-risk ? individual, submit plasma specimen for HIV-1 RNA ? quantification test (HIVDQ) and/or HIV-2 DNA/RNA ? test (FHV2Q). ? 03/31/2016 12:2 0 PM CDT 03/31/2016 12:20 PM CDT Narrative [facility] - 03/31/2016 9:28 PM CDT Drawn From PICC us Anna Maurer P.A.-C. LAB MICROBIOLOGY - BLOOD ORDERABLES Final Result [facility] [address] [place] [address], [facility] from Last 3 Months or Most Recently Relevant to Health Maintenance Insurance [employer]
--- OUTSIDE RECORDS SUMMARY | 2024-09-28 17:31 | XMS_ITS ---
Author Organization [facility] Address [address] [place] [address] Care Team Providers Care Boat Painter Name Role Phone Unavailable Unavailable Unavailable Surgery Details Not on file Complications Check Surgery Details section. Procedure Estimated Blood Loss Check Surgery Details section. Procedure Findings Check Surgery Details section. Procedure Specimens Taken Check Surgery Details section.
--- OUTSIDE RECORDS SUMMARY | 2024-09-28 17:31 | XMS_ITS | Continuity of Care Document ---
Author Name [facility] Organization [facility] Care Team Providers Care Cloud Systems Administrator Name Role Phone [facility] Unavailable Unavailable Social History Combined list of available smoking, tobacco, and other social history from Department of Defense and Veterans Affairs facilities. Social History Type Response Date Comment Sourc e This section is an empty social history section. DoD
[2024-09-28 17:42] LABS: Lactate Sepsis w/Reflex* 1.9 mmol/L (0.5-1.9)
[2024-09-28 17:43] LABS: Eosinophils Percent Auto 2.2 % (0.0-7.0); Hemoglobin* 17.9 gm/dL (12.0-16.0); Immature Granulocytes Pct Auto 0.1 %; Lymphocytes Percent Auto 11.1 % (20-44); Mean Corpuscular HGB Conc 32 gm/dL (32-36); Mean Corpuscular Hemoglobin 27 pg (26-34); Mean Corpuscular Volume 84 fL (80-100); Monocytes Percent Auto 9.2 % (0.0-11.0); Neutrophils Percent Auto 77.4 % (42.0-72.0); Platelet Count* 333 K/uL (140-440); RDW Coefficient of Variation % 17.3 % (11.5-15.5); Red Blood Count 6.69 m/uL (4.00-5.20); White Blood Count* 17.49 K/uL (4.50-11.00)
[2024-09-28 17:54] LABS: Slide Review Reflex No
[2024-09-28 17:59] LABS: Albumin* 4.8 g/dL (3.3-5.0); Chloride* 101 mmol/L (96-114); Potassium* 3.7 mmol/L (3.6-5.1); Sodium* 134 mmol/L (135-149)
[2024-09-28] MEDS: 0.9 % SODIUM CHLORIDE 500 ML 500 ML 1000 ML IV ×2 (17:59→19:57)
[2024-09-28] MEDS: ONDANSETRON 2 MG/ML inj 4 MG IVP ×2 (17:59→19:56)
[2024-09-28 18:01] LABS: Anion Gap 13 mEq/L (7-15); Aspartate Amino Transferase* 17 U/L (12-35); Bilirubin Total* 0.5 mg/dL (0.1-1.5); Carbon Dioxide* 20 mmol/L (20-32); Creatinine* 0.9 mg/dL (0.5-1.5); Est. Creatinine Clearance* 78.56; Estimated Glomerular Filt Rate 83 ml/min
[2024-09-28 18:02] LABS: Alanine Aminotransferase* 18 U/L (4-35); Alkaline Phosphatase* 70 U/L (40-150); Blood Urea Nitrogen* 29 mg/dL (5-24); Calcium* 9.8 mg/dL (8.4-10.6); Glucose* 121 mg/dL (60-115); Lipase* 30 U/L (23-300); Total Protein* 7.9 g/dL (6.0-8.3)
[2024-09-28 18:31] LABS: C.Difficile Negative (Negative); CDIFFEPI 027 PRESUMPTIVE NEGATIVE (Negative)
[2024-09-28 18:47] LABS: HCG Qualitative Serum* Negative (Negative)
[2024-09-28 19:15] LABS: Appearance Urine Clear (Clear); Bilirubin Urine Negative (Negative); Blood Urine Trace-intact (Negative); Color Urine Yellow (Yellow); Glucose Urine Negative (Negative); Ketones Urine Negative (Negative); Leukocyte Esterase Urine Negative (Negative); Nitrite Urine Negative (Negative); Protein Urine 1+ (Negative); Specific Gravity Urine 1.025 (1.000-1.030); Urobilinogen Urine 0.2 (0.2-1.0); pH Urine 5.5 (5.0-8.5)
[2024-09-28 19:33] LABS: Squamous Epithelial Cell Urine Few (None-Few); WBC Urine 0-2 (0-5)
[2024-09-28] MEDS: ACETAMINOPHEN 500 MG TABLET 1000 MG PO (19:56)
== END 2024-09-28 20:44 | disposition home or self-care (01) ==
LOC: ED 17:30
PROVIDERS: Emergency Provider Student in an Organized Health Care Education/Training Program; PCP Internal Medicine
DX: R10.9 Unspecified abdominal pain (principal); R11.2 Nausea with vomiting, unspecified
CPT/HCPCS: 36415; 74177; 80053; 81001; 81025; 83605; 83690; 83735; 84703; 85025; 87493; 96374; 99283; 99284; 99285; A9270; J2405; J7030; Q9967

== ENCOUNTER 2024-10-04 11:29 | Outpatient (CLI) | payer MEDICAID, SELFPAY ==
--- OUTSIDE RECORDS SUMMARY | 2024-10-04 11:32 | XMS_ITS | Referral Summary ---
Author Organization [facility] Address [address] [place] [address] Care Team Providers Care Glass Cleaning Machine Tender Name Role Phone Unavailable Primary Care Provider Unavailabl e Source Comments Patient records contain information from all sites at [facility]. For routine questions regarding patient records, call [phone] during business hours, M-F 8:00 AM - 5:00 PM Central Time. Record requests for emergency care only can be directed to [phone] at any time.[facility] [...] or relatives? Twice a week 03/24/2023 Attends Cheondoism Services Not on file 03/24 Do you belong to any clubs o r organizations such as sabianist groups, unions, fraWordStream or athletic groups, or school groups? No [...] medical care, and heating? 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 at [facility] Hardware e.g. pins/screws/ rods N/A: Abdomen Teleflex [employer] [id number] / / Explanted Type Area Per Diem Physical Therapist Assistant Device Identifier Shelf Expiration Date Model / Serial / Lot 5 Chinese Double-Lumen Power Picc Solo Implanted:02/20 (Quantity not [...] M.D. LAB BLOOD ADD-ON Final Resul t [facility] [address] [place] [address], [facility] [address] [place] [address] * HIV-1/-2 Ag and Ab Screen (03/31/2016 12:20 PM CDT) Pathologist [facility] HIV-1/-2 Ag and Ab Screen, S Negative Negative [facility] Comment: Drawn From PICC ? Negative result does not rule out HIV infection. If ? acute HIV infection is suspected in a high-risk ? individual, submit plasma specimen for HIV-1 RNA ? quantification test (HIVDQ) and/or HIV-2 DNA/RNA ? test (FHV2Q). ? 03/31/2016 12:2 0 PM CDT 03/31/2016 12:20 PM CDT Narrative [facility] - 03/31/2016 9:28 PM CDT Drawn From PICC Anna Maurer P.A.-C. LAB MICROBIOLOGY - BLOOD ORDERABLES Final Result [facility] [address] [place] [address], [facility] from Last 3 Months or Most Recently Relevant to Health Maintenance Insurance [facility]
--- OUTSIDE RECORDS SUMMARY | 2024-10-04 11:32 | XMS_ITS | Clinical Summary ---
Author Organization [facility] Address [address] [place] [address] Care Team Providers Care Particleboard Factory Worker Name Role Phone Unavailable Primary Care Provider Unavailabl e Source Comments Patient records contain information from all sites at [facility]. For routine questions regarding patient records, call [phone] during business hours, M-F 8:00 AM - 5:00 PM Central Time. Record requests for emergency care only can be directed to [phone] at any time.[facility] Allergies Active Allergy Reactions Criticality Noted Date [...] or relatives? Twice a week 03/24/2023 Attends Zoroastrian Services Not on file 03/24 Do you belong to any clubs o r organizations such as religious groups, unions, fraAllotrope Partners or athletic groups, or school groups? No [...] medical care, and heating? 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 at [facility] Hardware e.g. pins/screws/ rods N/A: Abdomen Teleflex [employer] [id number] / / Explanted Type Area Drapery Examiner Device Identifier Shelf Expiration Date Model / Serial / Lot 5 Northern Irish Double-Lumen Power Picc Solo Implanted:02/20 (Quantity not [...] M.D. LAB BLOOD ADD-ON Final Resul t [facility] [address] [place] [address], [place] [facility] [address] [place] [address] * HIV-1/-2 Ag and Ab Screen (03/31/2016 12:20 PM CDT) HIV-1/-2 Ag and Ab Screen, S Negative Negative [facility] Comment: Drawn From [facility] ? Negative result does not rule out HIV infection. If ? acute HIV infection is suspected in a high-risk ? individual, submit plasma specimen for HIV-1 RNA ? quantification test (HIVDQ) and/or HIV-2 DNA/RNA ? test (FHV2Q). ? 03/31/2016 12:2 0 PM CDT 03/31/2016 12:20 PM CDT Narrative [facility] - 03/31/2016 9:28 PM CDT Drawn From PICC us Anna Maurer P.A.-C. LAB MICROBIOLOGY - BLOOD ORDERABLES Final Result [facility] [address] [place] [address], [facility] from Last 3 Months or Most Recently Relevant to Health Maintenance Insurance [employer]
--- OUTSIDE RECORDS SUMMARY | 2024-10-04 11:32 | XMS_ITS ---
Author Organization [facility] Address [address] [place] [address] Care Team Providers Care Academic Services Professional Name Role Phone Unavailable Unavailable Unavailable Surgery Details Not on file Complications Check Surgery Details section. Procedure Estimated Blood Loss Check Surgery Details section. Procedure Findings Check Surgery Details section. Procedure Specimens Taken Check Surgery Details section.
--- OUTSIDE RECORDS SUMMARY | 2024-10-04 11:32 | XMS_ITS | Continuity of Care Document ---
Author Name [facility] Organization [facility] Care Team Providers Care Screw Machine Setter Name Role Phone [facility] Unavailable Unavailable Social History Combined list of available smoking, tobacco, and other social history from Department of Defense and Veterans Affairs facilities. Social History Type Response Date Comment Sourc e This section is an empty social history section. DoD
[2024-10-04 14:45] LABS: Chlamydia DNA Amplified* NOT DETECTED (No Detected); GC DNA Amplified* NOT DETECTED (No Detected)
== END 2024-10-04 11:30 | disposition home or self-care (01) ==
LOC: NFLDREF 11:30
PROVIDERS: PCP Internal Medicine; Visit Provider Family Medicine
DX: L29.2 Pruritus vulvae (principal)
CPT/HCPCS: 87491; 87591

== ENCOUNTER 2024-10-08 17:10 | Outpatient (CLI) | payer MEDICAID, SELFPAY ==
--- OUTSIDE RECORDS SUMMARY | 2024-10-08 17:13 | XMS_ITS | Continuity of Care Document ---
Author Name [facility] Organization [facility] Care Team Providers Care Vp Talent Management Name Role Phone [facility] Unavailable Unavailable Social History Combined list of available smoking, tobacco, and other social history from Department of Defense and Veterans Affairs facilities. Social History Type Response Date Comment Sourc e This section is an empty social history section. DoD
--- OUTSIDE RECORDS SUMMARY | 2024-10-08 17:13 | XMS_ITS | Referral Summary ---
Author Organization [facility] Address [address] [place] [address] Care Team Providers Care Whey Department Operator Name Role Phone Unavailable Primary Care Provider Unavailabl e Source Comments Patient records contain information from all sites at [facility]. For routine questions regarding patient records, call [phone] during business hours, M-F 8:00 AM - 5:00 PM Central Time. Record requests for emergency care only can be directed to [phone] at any time.[facility] Allergies Active Allergy Reactions Criticality Noted Date [...] r organizations such as druze groups, unions, fraNoosh or athletic groups, or school groups? No [...] medical care, and heating? 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 Gender Identity Female 03/24/2023 9:03 AM CDT Sexual Orientation Choose not to disclose 2022 9:03 AM CDT Last Filed Vital Signs Vital Sign Reading Time Taken Comments Blood Pressure 141/83 06/26/2023 9:00 PM CDT Pulse 85 06/26/2023 9:00 PM CDT Temperature 37.5 C (99.5 F) 06/26/2023 6:04 PM CDT Respiratory Rate 16 06/26/2023 6:04 PM CDT Oxygen Saturation 98% 06/26/2023 9:00 PM CDT Inhaled Oxygen Concentration - - Weight 92.5 kg (203 lb 14.8 oz) 023 10:38 AM CDT Height 166 cm (5' 5.35) 05/05/2023 10: 38 AM CDT Body Mass Index 33.57 05/05/2023 10:38 AM CDT Plan of Treatment Not on file Medical Devices Implanted Type Area Open Hearth Door Liner Device Identifier Shelf Expiration Date Model / Serial / Lot Clp Hmol Plmr Lg - [id number] Implanted:Qty : 1 on 05/05/2023 by Yessi Culver M.D. at [facility] Hardware e.g. pins/screws/ rods N/A: Abdomen Teleflex [employer] [id number] / / Explanted Type Area Open Hearth Door Liner Device Identifier Shelf Expiration Date Model / Serial / Lot 5 Tajik Double-Lumen Power Picc Solo Implanted:02/20 (Quantity not [...] M.D. LAB BLOOD ADD-ON Final Resul t Performing Organization Address City/[facility]/ZIP Co de Phone Number [facility] [address] [facility] [address] [place] [address] * HIV-1/-2 Ag and Ab Screen (03/31/2016 12:20 PM CDT) HIV-1/-2 Ag and Ab Screen, S Negative Negative [facility] Comment: Drawn From PICC Negative result does not rule out HIV infection. If acute HIV infection is suspected in a high-risk individual, submit plasma specimen for HIV-1 RNA quantification test (HIVDQ) and/or HIV-2 DNA/RNA test (FHV2Q). 03/31/2016 12:2 0 PM CDT 03/31/2016 12:20 PM CDT Narrative [facility] - 03/31/2016 9:28 PM CDT Drawn From PICC us Anna Maurer P.A.-C. LAB MICROBIOLOGY - BLOOD ORDERABLES Final Result Performing Organization Address City/[facility]/ZIP Co de Phone Number [facility] [address] from Last 3 Months or Most Recently Relevant to Health Maintenance Insurance [facility]
--- OUTSIDE RECORDS SUMMARY | 2024-10-08 17:13 | XMS_ITS | Clinical Summary ---
Author Organization [facility] Address [address] [place] [address] Care Team Providers Care Forging Die Finisher Name Role Phone Unavailable Primary Care Provider Unavailabl e Source Comments Patient records contain information from all sites at [facility]. For routine questions regarding patient records, call [phone] during business hours, M-F 8:00 AM - 5:00 PM Central Time. Record requests for emergency care only can be directed to [phone] at any time.[facility] Allergies Active Allergy Reactions Criticality [...] or relatives? Twice a week 03/24/2023 Attends Nondenominational Services Not on file 03/24 Do you belong to any clubs o r organizations such as tenriism groups, unions, fraHuiyuan or athletic groups, or school groups? No [...] care, and heating? Patient declined 03/24/2023 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 at [facility] Hardware e.g. pins/screws/ rods N/A: Abdomen [employer]flex LLC [id number] / / Explanted Type Area Splitter Head Device Identifier Shelf Expiration Date Model / Serial / Lot 5 Amharic Double-Lumen Power Picc Solo Implanted:02/20 (Quantity not [...] Metabolic Panel (06/26/2023 6:58 PM CDT) Pathologist [facility] Potassium, P 3.5(L) 3.6 - 5.2 mmol/L [...] M.D. LAB BLOOD ADD-ON Final Resul t [facility] [address] [place] [address], [facility] ST[facility] [address] [place] [address] * HIV-1/-2 Ag and Ab Screen (03/31/2016 12:20 PM CDT) HIV-1/-2 Ag and Ab Screen, S Negative Negative [facility] Comment: Drawn From PICC Negative result does not rule out HIV infection. If acute HIV infection is suspected in a high-risk individual, submit plasma specimen for HIV-1 RNA quantification test (HIVDQ) and/or HIV-2 DNA/RNA test (FHV2Q). 03/31/2016 12:2 0 PM CDT 03/31/2016 12:20 PM CDT Narrative [facility] - 03/31/2016 9:28 PM CDT Drawn From PICC Anna Maurer P.A.-C. LAB MICROBIOLOGY - BLOOD ORDERABLES Final Result [facility] [address] [place] [address], [facility] from Last 3 Months or Most Recently Relevant to Health Maintenance Insurance [facility]
--- OUTSIDE RECORDS SUMMARY | 2024-10-08 17:13 | XMS_ITS ---
Author Organization [facility] Address [address] [place] [address] Care Team Providers Care Farm Helper Name Role Phone Unavailable Unavailable Unavailable Surgery Details Not on file Complications Check Surgery Details section. Procedure Estimated Blood Loss Check Surgery Details section. Procedure Findings Check Surgery Details section. Procedure Specimens Taken Check Surgery Details section.
--- NOTE | 2024-10-08 17:30 | CRLHL7_ITS ---
For Patients: As a result of the Century Cures Act, medical imaging exams and procedure reports are released immediately into your electronic medical record. You may view this report before your referring provider. If you have questions, please contact your health care provider. INDICATION: Abnormal findings on CT scan COMPARISON: CT 09/28/2024 TECHNIQUE: 2D pineda scale and color Doppler images were acquired of the pelvis using a transabdominal and transvaginal approach. FINDINGS: Sonographic images demonstrate a normal size and smooth outer contour of the uterus. Uterus measures 9.8 cm in length by 4.9 cm in AP diameter by 7.1 cm in transverse dimension. The myometrium has a normal uniform echotexture. The endometrial lining measures 13 mm in composite thickness. Multiple cervical nabothian cysts are present. The right ovary measures 2.5 x 1.9 x 2.5 cm in size and the left ovary measures 3.8 x 1.9 x 2.8 cm. The ovaries demonstrate normal arterial and venous blood flow on color Doppler analysis. There are no suspicious fluid collections within the cul-de-sac. Small right ovarian cyst is present measuring 1.3 cm. IMPRESSION: Endometrial thickness 13 millimeters. No endometrial fluid. No uterine fibroid. Incidental cervical nabothian cysts. No suspicious findings. Dictated by Jed Anderson MD @ 10/09/2024 10:23:59 AM (Electronically Signed)
== END 2024-10-08 17:11 | disposition home or self-care (01) ==
LOC: US 17:11
PROVIDERS: PCP Internal Medicine; Visit Provider Family Medicine
DX: R93.5 Abnormal findings on diagnostic imaging of other abdominal regions, including retroperitoneum (principal); R93.89 Abnormal findings on diagnostic imaging of other specified body structures; N88.8 Other specified noninflammatory disorders of cervix uteri
CPT/HCPCS: 76830; 76856

== ENCOUNTER 2025-02-12 21:03 | Emergency (ER) | payer MEDICAID, SELFPAY ==
--- OUTSIDE RECORDS SUMMARY | 2025-02-12 21:05 | XMS_ITS | Clinical Summary ---
Author Organization [email or web address] Address [address] [place] [address] Care Team Providers Care Curriculum Supervisor Name Role Phone John Avalos MD Primary Care Provider Allergies Active Allergy Reactions Criticality Noted Date Comments Morphine Rash Medications fluconazole (DIFLUCAN) 150 mg tabletIndicatio ns:Yeast vaginitis Take 1 tablet at the onset of symptoms and repeat in one week. 2 tablet 10/07/2018 Active minoxidiL (LONITEN) 2.5 mg tab Take 0.625 mg by mouth once daily. 02/26/2022 Active phentermine (ADIPEX-P) 37.5 mg tablet Take 56.25 mg by mouth. 04/20/2022 Active Active Problems Problem Noted Date Diagnosed Date Allergic rhinitis, cause unspecified 09/16/2010 Major depressive disorder, recurrent episode, un specified 01/08/2010 Obesity, unspecified 11/25/2009 Headache(784.0) 01/13/2009 Nonspecific reaction to tube rculin skin test without active tuberculosis 11/21/2002 Attention deficit disorder with hyperactivity(31 4.01) Immunizations Immunization Administration Dates Next Due Influenza, IIV3 (Age >=3 years) 09/21/2011,08/19,10/24/2006 Tdap 05/09/2008 Family History Medical History Relation Name Comments Cancer-prostate Father b 1956 Psychiatric illness Mother depressi on and schizophrenia Unknown Mother Relation Name Status Comments Father Mother Social History Tobacco Use Types Packs/Day Years Used Date Smoking Tobacco: Never Smokeless Tobacco: Never Tobacco Cessation:Counseling Given: Yes Alcohol Use Standard Drinks/Week Comments No 0 (1 standard drink = 0.6 oz pur e alcohol) Comments No Sex and Gender Information Value Date Recorded Sex Assigned at Not on file 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 Gender Identity Not on file Sexual Orientation Not on file 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 Not on file Not on file Not on file Obstetrics History Para Term AB IAB SAB Ectopic Multiple Livin g Live Births 3 2 2 2 Date Outcome GA Total Labor Labor/2nd/3rd Weight Sex Type Anes PTL Bettye A1 A5 Name Clin Term Term Last Filed Vital Signs Vital Sign Reading Time Taken Comments Blood Pressure 117/78 07/17/2022 4:42 PM CDT Pulse 85 07/17/2022 4:42 PM CDT Temperature 37.1 C (98.8 F) 07/17/2022 4:42 PM CDT Respiratory Rate 16 07/17/2022 4:42 PM CDT Oxygen Saturation 99% 07/17/2022 4:42 PM CDT Inhaled Oxygen Concentration - - Weight 98.4 kg (217 lb) 07/17/2022 4:42 PM CDT Height 168.7 cm (5' 6.42) 10/07/2018 8:15 AM CS T Body Mass Index 34.59 10/07/2018 8:15 AM ARMORED MACHINE OPERATOR Plan of Treatment Health Maintenance Due Date Last Done Comments Depression screening for age 12+ 1997 HIV for age 15-65 2000 Hepatitis C screening for age 18-79 2003 Tetanus booster 05/09/2018 05/09/2008 BMI (ht and wt on same day) for age 18+ 10/07/2019 10/07/2018 COVID-19 vaccine series ( season) 2024 Influenza Vaccine (#1) 2024 1, 08/19/2010, 10/24/2006 Pap test for age 21-65 04/24/2027 4, 04/24/2024, 05/31/2022, Additional history exists Tdap Completed 05/09/2008 Pneumococcal series for age 6-49 Aged Out No longer eligible based on patient's age to complete this topic Procedures Procedure Name Priority Date/Time Associated Diagnosis Comments HPV HIGH RISK Routine 04/24/2024 12:13 PM CDT from Last 3 Months or Most Recently Relevant to Health Maintenance Results * HPV HIGH RISK (04/24/2024 12:13 PM CDT) TYPE 16 Negative Negative 04/27/2024 4:31 PM CDT [facility] TYPE 18 Negative Negative 04/27/2024 4:31 PM CDT [facility] TR[facility] LAB[facility]ORY OTHER HIGH RISK TYPES Negative Negative 04/27/2024 4:31 PM CDT [facility] TRA LABORATORY Other (Cervical) 04/24/2024 12:13 PM CDT 04/26/2024 10:18 AM CDT Narrative [facility] - 04/27/2024 4:31 PM CDT HPV types 16, 18, 31, 33, 35, 39, 45, 51, 52, 56, 58, 59, 66 and 68 DNA were undetectable or below the pre-set threshold. Methodology: April Gabriel 4800 HPV Test february Everardo FOX MICROBIOLOGY Final Resu lt [facility] [address] [place] [address], from Last 3 Months or Most Recently Relevant to Health Maintenance Insurance [facility] Care Teams Curriculum Supervisor Relationship Specialty Start Date End Date John Avalos MD [address] [place] [address] PCP - General Internal Medicine 06/20/17
--- OUTSIDE RECORDS SUMMARY | 2025-02-12 21:05 | XMS_ITS ---
Author Name Interface, [email or web address] lity Address [address] [place] [address] [address] [address] [facility] Address [address] [facility] [address] [address] Care Team Providers Care Block Setter Gypsum Name Role Phone Wiliam Park Unavailable Unavailable Allergies and Adverse Reactions Medication/Group Name Reaction Severity Date Compazine 08/21/2024 citalopram 08/21/2024 sumatriptan 08/21/2024 morphine 08/21/2024 topiramate 08/21/2024 Plan Date Type Value 01/10/2025 APPOINTMENT OV 20 MIN 01/10/2025 APPOINTMENT LAB 15 MIN 12/20/2024 APPOINTMENT LAB 15 MIN 12/20/2024 APPOINTMENT OV 20 MIN 08/28/2024 APPOINTMENT TREATMENT 1 HR 08/21/2024 APPOINTMENT OV 20 MIN 08/21/2024 APPOINTMENT LAB 15 MIN 08/21/2024 LABORDER Iron profile 08/21/2024 LABORDER Ferritin panel 08/21/2024 LABORDER CBC w/ auto diff 01/10/2025 LABORDER Iron profile 01/10/2025 LABORDER CBC w/ auto diff 01/10/2025 LABORDER Ferritin panel Reason for Visit LAB 15 MIN Encounters Date Name 08/21/2024 Anemia 08/21/2024 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 [address] [facility] [phone] 08/21 CBC w/ auto diff WBC K/uL 3.0 8.9 6.2 FINAL Wiliam Xavier [facility] [place], [address] [place] [phone] 0 Phone: () - 08/21 CBC w/ auto diff HGB g/dL 11.3 15.2 11.1 Low FINAL Wiliam Xavier [facility] [place], [address] [place] [phone] 0 Phone: () - 08/21 CBC w/ auto diff PLT K/uL 113.0 364.0 321 FINAL Wiliam Xavier [facility] [place], [address] [place] [id number] 0 Phone: () - 08/21 CBC w/ auto diff Scott # (ANC) K/uL 1.6 6.6 3.8 FINAL Wiliam Xavier [facility] [place], [address] [place] [phone] 0 Phone: () - 08/21 CBC w/ auto diff Scott % % 43.0 74.0 60.3 FINAL Wiliam Xavier [facility] [place], [address] [place] [phone] 0 Phone: () - 08/21 CBC w/ auto diff IG % % 0.0 0.5 0.5 FINAL Wiliam Xavier [facility] [place], [address] [place] [id number] 0 Phone: () - 08/21 CBC w/ auto diff IG # K/uL 0.0 0.03 0.03 FINAL Wiliam Xavier [facility] [place], [address] [place] [phone] 0 Phone: () - 08/21 CBC w/ auto diff LY % % 14.0 41.0 28.2 FINAL Wiliam Xavier [facility] [place], [address] [place] [phone] 0 Phone: () - 08/21 CBC w/ auto diff MO % % 6.0 15.0 8.8 FINAL [facility]os [facility] [place], [address] [place] [phone] 0 Phone: () - 08/21 CBC w/ auto diff EO % % 0.0 7.0 1.6 FINAL [facility]os [facility] [place], [address] [place] [phone] 0 Phone: () - 08/21 CBC w/ auto diff BA % % 0.0 2.0 0.6 FINAL [facility]os [facility] [place], [address] [place] [phone] 0 Phone: () - 08/21 CBC w/ auto diff LY # K/uL 0.4 3.6 1.8 FINAL Wiliam Xavier [facility] [place], [address] [place] [phone] 0 Phone: () - 08/21 CBC w/ auto diff MO # K/uL 0.2 1.3 0.6 FINAL [facility] [place], [address] [place] [id number] 0 Phone: () - 08/21 CBC w/ auto diff EO # K/uL 0.0 0.6 0.1 FINAL [facility] [place], [address] [place] [phone] 0 Phone: () - 08/21 CBC w/ auto diff BA # K/uL 0.0 0.2 0.0 FINAL [facility] [place], [address] [place] [id number] 0 Phone: () - 08/21 CBC w/ auto diff NRBC % #/100W BC 0.0 0.2 0.0 FINAL Wiliam Xavier [facility] [place], [address] [place] [phone] 0 Phone: () - 08/21 CBC w/ auto diff RBC M/uL 3.9 5.1 4.29 FINAL Wiliam Xavier [facility] [place], [address] [place] [phone] 0 Phone: () - 08/21 CBC w/ auto diff HCT % 35.0 48.0 36.1 FINAL Wiliam Xavier [facility] [place], [address] [place] [address] [address] [place] [phone] 0 Phone: () - 08/21 CBC w/ auto diff MCV fL 80.0 104.0 84.1 FINAL Wiliam Xavier [facility] [place], [address] [place] [address] [address] [place] [phone] 0 Phone: () - 08/21 CBC w/ auto diff MCH pg 26.0 35.0 25.9 Low FINAL Wiliam Xavier [facility] [place], [address] [place] [address] [address] [place] [phone] 0 Phone: () - 08/21 CBC w/ auto diff MCHC g/dL 30.0 35.0 30.7 FINAL Wiliam Xavier [facility] [place], [address] [facility] [address] [place] [phone] 0 Phone: () - 08/21 CBC w/ auto diff MPV fL 9.5 13.4 8.4 Low FINAL Wiliam Xavier [facility] [place], [facility] [address] [place] [phone] 0 Phone: () - 08/21 CBC w/ auto diff RDW % 11.4 16.1 14.10 FINAL Wiliam Xavier [facility] [place], [address] [place] [phone] 0 Phone: () - 08/21 Iron profi le TIBC ug/dL 265.0 497.0 372 FINAL Wiliam Park * [facility], [address] [facility] [id number] 0 08/21 Iron profi le Iron ug/dL 37.0 170.0 94 FINAL Wiliam Park * [facility], [address] [facility] [id number] 0 08/21 Iron profi le Unbou nd iron capac ity ug/dL 75.0 410.0 278 FINAL Wiliam Park * [facility], [address] [facility] [phone] 0 08/21 Iron profi le Iron, % satur ation % 20.0 55.0 25 FINAL Wiliam Park * [facility], [address] [facility] [phone] [id number] Medications Date Name Route Dose Frequency Instructions Start Date End Date Status Semaglutide (weight loss) Subcutaneous Pen Injector weekly active Phentermine Oral QD active Minoxidil Oral QD ac tive Valacyclovir Oral QD active Cholecalciferol Oral QD active 08/28 hydrocortisone 100 MG Injection intravenously 100.0 mg Re-initiate treatment only upon physician approval. 2023 active 08/28 famotidine 10 MG/ML Injectable Solution intravenously 20.0 mg Re-initiate treatment only upon physician approval. 2023 active 08/28 methylprednisolone 2000 MG Injection intravenously 125.0 mg Re-initiate treatment only upon physician approval. 2023 active 08/28 1 ML epinephrine 1 MG/ML Injection intramuscularly 0.3 mg once Re-initiate treatment only upon physician approval. 2023 active 01/09 famotidine 10 MG/ML Injectable Solution intravenously 20.0 mg Re-initiate treatment only upon physician approval. 2023 active 01/09 methylprednisolone 2000 MG Injection intravenously 125.0 mg Re-initiate treatment only upon physician approval. 2023 active 01/09 hydrocortisone 100 MG Injection intravenously 100.0 mg Re-initiate treatment only upon physician approval. 2023 active 01/09 1 ML epinephrine 1 MG/ML Injection intramuscularly 0.3 mg once Re-initiate treatment only upon physician approval. 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 Menorrhagia (finding) Active Vital Signs Date Type Value 08/21/2024 Heart Beat 76.00 08/21/2024 Body Temperature 98.30 08/21/2024 Height 66.00 08/21/2024 Pain Scale 0.00 08/21/2024 Intravascular Systolic 130 08/21/2024 Intravascular Diastolic 70 08/21/2024 Oxygen Saturation 100.00 08/21/2024 Respiratory Rate 16.00 08/28/2024 Height 66.00 08/28/2024 BMI 29.88 08/28/2024 Weight 185.10 08/28/2024 Pain Scale 0.00 08/28/2024 Intravascular Systolic 125 08/28/2024 Intravascular Diastolic 78 08/28/2024 Oxygen Saturation 99.00 08/28/2024 Respiratory Rate 18.00 08/28/2024 BSA 1.94 08/28/2024 Body Temperature 98.40 08/28/2024 Heart Beat 80.00 Notes Section * Med Onc Follow-up Note Patient Name: ISAIAH MACIEL Date Of : 1985 Today's Provider:?Wiliam CHOUDHUYR Date of Service:?08/21/2024 Attending Physician:?Wiliam Park (Medical Oncology) Referring Provider: Kimberli Enamorado MD (Endocrinology) HEMATOLOGY/ MEDICAL ONCOLOGY FOLLOW UP VISIT Reason for Visit * Iron deficiency anemia:??Secondary to blood loss.?? * Menorrhagia Assessment * Iron deficiency anemia * Menorrhagia * 12/2023: Patient reported that she has been anemic for a while,??she reported symptoms of fatigue,??not been able to??go through her day??without exhaustion.?Patient feels that the symptoms have been going on for a long time but got worse in last 6 months.?Also patient has been experiencing pa r loss.?? * Patient denies seeing any blood in her stools??she has not never had a colonoscopy.?? * Patient denies any history of GI??bypass??surgery.?For last 2 years she has been taking phentermine??and for last 6 months Wegovy to lose weight she has lost about 60 pounds in weight. * She denies any restrictions to her diet.?? * Patient reported longstanding history of menorrhagia.?Her menstural periods are long??up to 7 days,??and she has heavy bleeding.?She has consulted with dental detail representative in the past,??however unableto tolerate??oral contraceptive pills IUD,??due to side effects such as weight gain.?Patient wasscheduled for a uterine ablation at 1 time however it was canceled as she became COVID- positive andnever rescheduled.?She is not interested in hysterectomy. * Patient has??7 kids,??youngest 1 was 2-1/2 years old.?She breast-fed her children.?Patient tried to take vitamins during her however she could not??tolerate oral iron due to??abdominal pain??cramps constipation.?? * 01/09/2024 patient had 1 infusion of IV iron:??1000 mg of ferric Derisomaltose.?? * 02/23/2024:??Patient had good response to IV iron with correction of anemia and iron indices.?She did notice significant improvement in her fatigue and hair loss.?? * Patient now returns for planned follow-up??she reported that after iron infusion she felt well for??2 to 3 months??subsequently she started to notice that??she is getting fatigued again also she is noticing hair loss.?? She is trying to take oral iron however is unable to tolerate due to abdominal pain and cramps.?She continues to have heavy menstrual bleeding,??she is very hesitant to take oral contraceptive pills due to history of depression.?? Plan * We reviewed her labs and her hemoglobin has dropped again to??11.1,??iron indices from today are pending but given her symptoms??it is very likely that she is iron deficient again. * She continues to have blood loss through menorrhagia?? * I again encouraged her to reach out to gynecology for Any potential treatments for menorrhagia??even if she can take progesterone only pills for the days of her menstrual cycle??it may reduce menstrual blood flow.?? * In the meantime I recommended another??IV iron infusion.?? * I gave her information sheet about iron rich foods and encouraged her to??include some iron rich food??daily in her diet. * Will plan to see her back in 3 months.?With repeat??labs.?? * I also advised her that she should meet with gastroenterology to consider colonoscopy??to rule out possible??unrecognized GI blood loss. Advanced Care Planning Not discussed at this visit. Pain Scale on Today's Visit 0 Pain Plan on Today's Visit No pain plan indicated for today's visit Smoking Status Smoking Tobacco : Never smoker; Smokeless Tobacco : none found; Vaping : none found Depression Screening Tool Status Was screened; Outcome positive: No; Screening Date: 08/21/2024; Screening Tool: PRIME [id number]; Total depression score: 0 History of Present Illness * Patient reported that she has been anemic for a while,??she reported symptoms of fatigue,??not beenable to??go through her day??without exhaustion.?Patient feels that the symptoms have been goingon for a long time but got worse in last 6 months.?? * Patient denies seeing any blood in her stools??she has not never had a colonoscopy.?? * Patient denies any history of GI??bypass??surgery.?For last 2 years she has been taking phentermine??and for last 6 months Wegovy to lose weight she has lost about 60 pounds in weight. * She denies any restrictions to her diet.?? * Patient reported longstanding history of menorrhagia.?Her menstural periods are long??up to 7 days,??and she has heavy bleeding.?She has consulted with dental detail representative in the past,??however unableto tolerate??oral contraceptive pills IUD,??due to side effects such as weight gain.?Patient wasscheduled for a uterine ablation at 1 time however it was canceled as she became COVID- positive andnever rescheduled.?She is not interested in hysterectomy. * Patient has??7 kids,??youngest 1 was 2-1/2 years old.?She breast-fed her children.?Patient tried to take vitamins during her however she could not??tolerate oral iron due to??abdominal pain??cramps constipation.?? * 01/09/2024 patient had 1 infusion of IV iron:??1000 mg of ferric Derisomaltose.?? * 02/23/2024 hemoglobin improved to 12.4 :??Patient reported significant improvement in her symptoms. * 08/21/2024??hemoglobin dropped again to 11.1.?Patient is again experiencing fatigue hair loss.?? Interval History { } Review of Systems Remaining 14 point comprehensive review of systems within normal limits. NCCN Distress Thermometer and Problem List were collected and documented in the patient chart.?? Remarkable symptoms and concerns were discussed with the patient.?? Any additional follow-up is indicated in the plan. 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 Genetics/Molecular/Biomarkers * Iron deficiency anemia secondary to blood loss ( Disease Status: Untreated; Type of Anemia: Microcytic; ) * Menorrhagia (finding) Lab Results CBC Lab Results 08/21/2024 02/23/2024 12/22/2023 12/05/2023 09/15/2008/06/2023 CBC WBC x 10^3/uL 6.2 8.1 7.1 RBC x 10^6/uL 4.29 4.34 4.33 NRBC % /100 wbc 0.0 0.0 0.0 HGB g/dL 11.1 (L) 12.4 10.9 (L) HCT % 36.1 38.7 36.3 MCV fL 84.1 89.2 83.8 MCH pg 25.9 (L) 28.6 25.2 (L) MCHC g/dL 30.7 32.0 30.0 RDW % 14.10 14.70 17.40 (H) PLT x 10^3/uL 321 256 282 MPV fL 8.4 (L) 8.9 (L) 8.9 (L) Scott % 60.3 63.7 54.5 LY % 28.2 23.2 31.4 MO % 8.8 8.6 8.5 EO % 1.6 3.8 4.7 IG % 0.5 0.2 0.3 Scott # (ANC) x 10^3/uL 3.8 5.2 3.9 BA % 0.6 0.5 0.6 MO # x 10^3/uL 0.6 0.7 0.6 EO # x 10^3/uL 0.1 0.3 0.3 BA # x 10^3/uL 0.0 0.0 0.0 IG # x 10^3/uL 0.03 0.02 0.02 LY # x 10^3/uL 1.8 1.9 2.2 Chemistries Lab Results 08/21/2024 02/23/2024 12/22/2023 12/05/2023 09/15/2008/06/2023 Chemistries Glucose mg/dL 68 (L) BUN mg/dL 10.0 Creatinine mg/dL 0.69 Sodium mmol/L 143 Potassium mmol/L 3.9 Chloride mmol/L 109 CO2 mmol/L 26 Calcium mg/dL 9.4 Albumin g/dL 4.2 Total protein g/dL 6.4 Bilirubin, total mg/dL 0.3 Alkaline phosphatase U/L 50 AST/SGOT U/L 18 ALT/SGPT U/L 11 GFR estimate mL/min/1.73m2 113.6 ? Lab Results 08/21/2024 02/23/2024 12/22/2023 12/05/2023 09/15/2008/06/2023 Anemia Labs Iron ug/dL 60 18 (L) TIBC ug/dL 285 338 Ferritin ng/mL 15.60 6.10 (L) Unbound iron capacity ug/dL 225 320 Iron, % saturation % 21 5 (L) Vitamin B12 pg/mL 778 Folate, serum ng/mL Folate greater than 20 Reticulocyte count % 1.73 (H) 1.39 Reticulocyte, absolute x 10^6/mL 0.08 0.06 Immature reticulocyte fraction, % 10.70 8 Reticulocyte cellular hemoglobin pg 32.9 27.9 (L) Surveys/Consents/Other Discussions KEI Claire CC: FAX Joel. Carson Enamorado MD (Referring) John Avalos MD Electronically signed by Wiliam CHOUDHURY 08/21/2024 12:21 CDT
--- OUTSIDE RECORDS SUMMARY | 2025-02-12 21:05 | XMS_ITS | CCD ---
Author Name Interface, [id number] lity Address [address] [facility] [address] [address] [facility] Address [address] [facility] [address] [address] Care Team Providers Care Administrative Support Technician Name Role Phone [place] Unavailable Unavailable Care Plan Date Type Value 01/10/2025 APPOINTMENT LAB 15 MIN 01/10/2025 APPOINTMENT OV 20 MIN 12/20/2024 APPOINTMENT OV 20 MIN 12/20/2024 APPOINTMENT LAB 15 MIN 08/28/2024 APPOINTMENT TREATMENT 1 HR 08/21/2024 APPOINTMENT LAB 15 MIN 08/21/2024 APPOINTMENT OV 20 MIN 02/23/2024 APPOINTMENT LAB 15 MIN 02/23/2024 APPOINTMENT OV 20 MIN 02/23/2024 LABORDER Iron profile 02/23/2024 LABORDER Ferritin panel 02/23/2024 LABORDER CBC, Diff and Re tic 08/21/2024 LABORDER Iron profile 08/21/2024 LABORDER Ferritin panel 08/21/2024 LABORDER CBC w/ auto diff 01/10/2025 LABORDER Iron profile 01/10/2025 LABORDER CBC w/ auto diff 01/10/2025 LABORDER Ferritin panel Reason for Visit LAB 15 MIN Encounters Date Name 08/28/2024 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 Functional Status Date Name Score 08/21/2024 ECOG performance status - grade 1 1 Diagnostic Results Date Type Test Units Lower Limit Upper Limit Result Flag Comments Status Ordered By Specimen Source Lab Address 08/21 CBC w/ auto diff Scott # (ANC) K/uL 1.6 6.6 3.8 FINAL [facility] [place], [address] [facility] [phone] Phone: () - 08/21 CBC w/ auto diff IG % % 0.0 0.5 0.5 FINAL [facility] [place], [address] [place] [phone] 0 Phone: () - 08/21 CBC w/ auto diff MO # K/uL 0.2 1.3 0.6 FINAL [facility] [place], [address] [place] [phone] 0 Phone: () - 08/21 CBC w/ auto diff MCV fL 80.0 104.0 84.1 FINAL [facility] [place], [address] [place] [phone] 0 Phone: () - 08/21 CBC w/ auto diff IG # K/uL 0.0 0.03 0.03 FINAL [facility] [place], [address] [place] [phone] 0 Phone: () - 08/21 CBC w/ auto diff MO % % 6.0 15.0 8.8 FINAL [facility] - [place], [address] [place] [phone] 0 Phone: () - 08/21 CBC w/ auto diff EO # K/uL 0.0 0.6 0.1 FINAL [facility] [place], [address] [place] [phone] 0 Phone: () - 08/21 CBC w/ auto diff EO % % 0.0 7.0 1.6 FINAL [facility] [place], [address] [place] [phone] 0 Phone: () - 08/21 CBC w/ auto diff RBC M/uL 3.9 5.1 4.29 FINAL [facility] [place], [address] [place] [phone] 0 Phone: () - 08/21 CBC w/ auto diff MPV fL 9.5 13.4 8.4 Low FINAL [facility] [place], [address] [place] [phone] 0 Phone: () - 08/21 CBC w/ auto diff WBC K/uL 3.0 8.9 6.2 FINAL [facility] [place], [address] [place] [phone] 0 Phone: () - 08/21 CBC w/ auto diff PLT K/uL 113.0 364.0 321 FINAL [facility] [place], [address] [place] [phone] 0 Phone: () - 08/21 CBC w/ auto diff BA % % 0.0 2.0 0.6 FINAL [facility] [place], [address] [place] [phone] 0 Phone: () - 08/21 CBC w/ auto diff BA # K/uL 0.0 0.2 0.0 FINAL [facility] [place], [address] [place] [phone] 0 Phone: () - 08/21 CBC w/ auto diff HGB g/dL 11.3 15.2 11.1 Low FINAL [facility] [place], [address] [place] [phone] 0 Phone: () - 08/21 CBC w/ auto diff RDW % 11.4 16.1 14.10 FINAL [facility] [place], [address] [place] [phone] 0 Phone: () - 10/01 /2024 CBC w/ auto diff LY % % 14.0 41.0 28.2 FINAL [facility] [place], [address] [place] [phone] 0 Phone: () - 08/21 CBC w/ auto diff LY # K/uL 0.4 3.6 1.8 FINAL [facility] [place], [address] [place] [phone] 0 Phone: () - 08/21 CBC w/ auto diff MCH pg 26.0 35.0 25.9 Low FINAL [facility] [place], [address] [place] [phone] 0 Phone: () - 08/21 CBC w/ auto diff MCHC g/dL 30.0 35.0 30.7 FINAL [facility] [place], [address] [place] [phone] 0 Phone: () - 08/21 CBC w/ auto diff NRBC % #/100W BC 0.0 0.2 0.0 FINAL [facility] - [place], [address] [place] [phone] 0 Phone: () - 08/21 CBC w/ auto diff HCT % 35.0 48.0 36.1 FINAL [facility] [place], [address] [place] [phone] 0 Phone: () - 08/21 CBC w/ auto diff Scott % % 43.0 74.0 60.3 FINAL [facility] [place], [address] [place] [phone] 0 Phone: () - 08/21 Eleno tin panel Eleno tin ng/mL 6.24 137.0 5.37 Low FINAL [facility] - [place], [address] [facility] [place] [phone] 0 02/22 Retic ulocy te count % 0.4 1.6 1.73 High FINAL [facility] - [place], [address] [place] [phone] 0 Phone: () - 02/22 Retic ulocy te cellu lar hemog lobin pg 28.0 37.0 32.9 FINAL [facility] - [place], [address] [place] [phone] 0 Phone: () - 02/22 Retic ulocy te, absol [facility] [place] M/uL 0.02 0.08 0.08 FINAL [facility] [place], [address] [place] [phone] 0 Phone: () - 02/22 Immat ure retic ulocy te fract ion, % % 0.0 16.5 10.70 FINAL [facility] [place], [address] [place] [phone] 0 Phone: () - 08/21 Iron profi le Iron, % satur ation % 20.0 55.0 25 FINAL [facility] * [facility] [place], [address] [facility] [phone] 0 08/21 Iron profi le Iron ug/dL 37.0 170.0 94 FINAL [facility] * [facility] [place], [address] [facility] [place] [phone] 0 08/21 Iron profi le TIBC ug/dL 265.0 497.0 372 FINAL [facility] * [facility] [place], [address] [facility] [place] [phone] 0 08/21 Iron profi le Unbou nd iron capac ity ug/dL 75.0 410.0 278 FINAL [place] [place] * [facility] [place], [address] [facility] [phone] Medications Administered Date Name Route Dose Frequency Instructions Start Date End Date Status 08/28 10 ML ferric derisomaltose 100 MG/ML Injection intravenously 1000. 0 mg once For actual body weight greater than or equal to 50 kg. Dilute in 100-500 mL NS to a final concentration greater than 1 mg iron/mL. Infuse over at least 20 minutes. Do not mix or infuse with other drugs. Monitor for signs and symptoms of hypersensitivity during and for at least 30 minutes after administration. Ferric derisomaltose is an irritant. 08/28 inactive Medications Date Name Route Dose Frequency Instructions Start Date End Date Status Minoxidil Oral QD ac tive Cholecalciferol Oral QD active Olanzapine Oral QD i nactive Valacyclovir Oral QD active Semaglutide (weight loss) Subcutaneous Pen Injector weekly active Phentermine Oral QD active 08/28 methylprednisolo ne 2000 MG Injection intravenously 125.0 mg Re-initiate treatment only upon physician approval. 2023 active 08/28 famotidine 10 MG/ML Injectable Solution intravenously 20.0 mg Re-initiate treatment only upon physician approval. 2023 active 08/28 hydrocortisone 100 MG Injection intravenously 100.0 mg Re-initiate treatment only upon physician approval. 2023 active 08/28 1 ML epinephrine 1 MG/ML Injection intramuscularly 0.3 mg once Re-initiate treatment only upon physician approval. 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 Menorrhagia (finding) Active Procedures Date Category Name Instructions Status 02/20/2024 Physician Order RTC MD Ordered 08/21/2024 Physician Order RTC MD Ordered 08/28/2024 Physician Order RTC nurse for infusion IV iron Ordered 01/10/2025 Physician Order RTC MD Ordered Social History Date Name Value 12/22/2023 Sex Female Vital Signs Date Type Value 08/28/2024 Height 66.00 08/28/2024 Weight 185.10 08/28/2024 Intravascular Systolic 125 08/28/2024 Intravascular Diastolic 78 08/28/2024 Respiratory Rate 18.00 08/28/2024 Heart Beat 80.00 08/28/2024 Body Temperature 98.40 08/28/2024 Pain Scale 0.00 08/28/2024 Oxygen Saturation 99.00 08/28/2024 BMI 29.88
[2025-02-12 21:12] VITALS: BP 118/76; PULSE 76; RESP 16; TEMP 36.4; O2SAT 100; BMI 27.6
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
--- OUTSIDE RECORDS SUMMARY | 2025-02-12 22:00 | XMS_ITS | CCD ---
Author Name Interface, H1Loogcul lity Address [address] [facility] [address] [address] [facility] Oncology Address [address] [facility] [address] [address] Care Team Providers Care Survey Director Name Role Phone Wiliam Park Unavailable Unavailable [...] le, [address] [facility] [phone] 0 Phone: () - 08/21 CBC w/ auto diff IG % % 0.0 0.5 0.5 FINAL [facility] [place], [address] [place] [phone] 0 Phone: () - 08/21 CBC w/ auto diff MO # K/uL 0.2 1.3 0.6 FINAL Wiliam Xavier [facility] - [place], [address] [place] [phone] 0 Phone: () - 08/21 CBC w/ auto diff MCV fL 80.0 104.0 84.1 FINAL [facility] - [place], [address] [place] [phone] 0 Phone: () - 08/21 CBC w/ auto diff IG # K/uL 0.0 0.03 0.03 FINAL [facility] - [place], [address] [facility] [address] [place] [id number] 0 Phone: () - 08/21 CBC w/ auto diff MO % % 6.0 15.0 8.8 FINAL [facility] - [place], [address] [place] [id number] 0 Phone: () - 08/21 CBC w/ auto diff EO # K/uL 0.0 0.6 0.1 FINAL [facility] - [place], [address] [place] [id number] 0 Phone: () - 08/21 CBC w/ auto diff EO % % 0.0 7.0 1.6 FINAL [facility] - [place], [address] [place] [phone] 0 Phone: () - 08/21 CBC w/ auto diff RBC M/uL 3.9 5.1 4.29 FINAL [facility] - [place], [address] [place] [id number] 0 Phone: () - 08/21 CBC w/ auto diff MPV fL 9.5 13.4 8.4 Low FINAL [facility]ili[facility] Xavier [facility] - [place], [address] [place] [id number] 0 Phone: () - 08/21 CBC w/ auto diff WBC K/uL 3.0 8.9 6.2 FINAL Wiliam Xavier [facility] - [place], [address] [place] [id number] 0 Phone: () - 08/21 CBC w/ auto diff PLT K/uL 113.0 364.0 321 FINAL Wiliam Xavier [facility] - [place], [address] [place] [id number] 0 Phone: () - 08/21 CBC w/ auto diff BA % % 0.0 2.0 0.6 FINAL [facility] Xavier [facility] - [place], [address] [place] [phone] 0 Phone: () - 08/21 CBC w/ auto diff BA # K/uL 0.0 0.2 0.0 FINAL W[facility] Xavier [facility] - [place], [address] [place] [id number] 0 Phone: () - 08/21 CBC w/ auto diff HGB g/dL 11.3 15.2 11.1 Low FINAL W[facility] Xavier [facility] - [place], [address] [place] [id number] 0 Phone: () - 08/21 CBC w/ auto diff RDW % 11.4 16.1 14.10 FINAL [facility] Xavier [facility] - [place], [address] [place] [id number] 0 Phone: () - 10/01 /2024 CBC w/ auto diff LY % % 14.0 41.0 28.2 FINAL [facility]am X[facility] - [place], [address] [place] [id number] 0 Phone: () - 08/21 CBC w/ auto diff LY # K/uL 0.4 3.6 1.8 FINAL [facility] - [place], [address] [facility] [address] [place] [id number] 0 Phone: () - 08/21 CBC w/ auto diff MCH pg 26.0 35.0 25.9 Low FINAL [facility] Xavier [facility] - [place], [address] [place] [id number] 0 Phone: () - 08/21 CBC w/ auto diff MCHC g/dL 30.0 35.0 30.7 FINAL [facility] - [place], [address] [facility] [address] [place] [id number] 0 Phone: () - 08/21 CBC w/ auto diff NRBC % #/100W BC 0.0 0.2 0.0 FINAL [facility] - [place], [address] [place] [phone] 0 Phone: () - 08/21 CBC w/ auto diff HCT % 35.0 48.0 36.1 FINAL [facility] - [place], [address] [place] [id number] 0 Phone: () - 08/21 CBC w/ auto diff Scott % % 43.0 74.0 60.3 FINAL [facility] - [place], [address] [place] [phone] 0 Phone: () - 08/21 Eleno tin panel Eleno tin ng/mL 6.24 137.0 5.37 Low FINAL Wiliam Xavier [facility] - [place], [address] [facility] [place] [id number] 0 02/22 Retic ulocy te count % 0.4 1.6 1.73 High FINAL [facility] - [place], [address] [place] [id number] 0 Phone: () - 02/22 Retic ulocy te cellu lar hemog lobin pg 28.0 37.0 32.9 FINAL [facility] - [place], [address] [place] [id number] 0 Phone: () - 02/22 Retic ulocy te, absol [place] M/uL 0.02 0.08 0.08 FINAL [facility] - [place], [address] [place] [id number] 0 Phone: () - 02/22 Immat ure retic ulocy te fract ion, % % 0.0 16.5 10.70 FINAL [facility] - [place], [address] [place] [id number] 0 Phone: () - 08/21 Iron profi le Iron, % satur ation % 20.0 55.0 25 FINAL Wiliam Xavier * [facility] - [place], [address] [facility] [id number] 0 08/21 Iron profi le Iron ug/dL 37.0 170.0 94 FINAL Wiliam Xavier * [facility] - [place], [address] [facility] [place] [id number] 0 08/21 Iron profi le TIBC ug/dL 265.0 497.0 372 FINAL Wiliam Xavier * [facility] - [place], [address] [facility] [place] [id number] 0 08/21 Iron profi le Unbou nd iron capac ity ug/dL 75.0 410.0 278 FINAL Wiliam Park * [facility] [place], [address] [facility] [address] [facility] [id number] 0 Medications Administered Date Name Route Dose [...]
--- OUTSIDE RECORDS SUMMARY | 2025-02-12 22:00 | XMS_ITS | Clinical Summary ---
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 Plan of Treatment Health Maintenance Due Date [...] 16 Negative Negative 04/27/2024 4:31 PM CDT [facility] TYPE 18 Negative Negative 04/27/2024 4:31 PM CDT [facility] TRAL [facility] OTHER HIGH RISK TYPES Negative Negative 04/27/2024 4:31 PM CDT [facility] TRA LABORATORY Other (Cervical) 04/24/2024 12:13 PM CDT 04/26/2024 10:18 AM CDT Narrative [facility] - 04/27/2024 4:31 PM CDT HPV types 16, 18, 31, 33, 35, 39, 45, 51, 52, 56, 58, 59, 66 and 68 DNA were undetectable or below the pre-set threshold. Methodology: April Gabriel 4800 HPV Test february Everardo FOX MICROBIOLOGY Final Resu lt [facility] 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
--- OUTSIDE RECORDS SUMMARY | 2025-02-12 22:00 | XMS_ITS ---
Author Name Interface, [id number] lity Address [address] [place] [address] [address] [address] [facility] Oncology Address [address] [facility] [address] [address] Care Team Providers Care Port Steward Name Role Phone Wiliam Park Unavailable Unavailable Allergies and Adverse Reactions Medication/Group Name Reaction Severity Date Compazine 08/21/2024 citalopram 08/21/2024 sumatriptan 08/21/2024 topiramate 08/21/2024 morphine 08/21/2024 Plan Date Type Value 01/10/2025 APPOINTMENT [...] Wiliam Xavier * [facility] [place], [facility] [address] [facility] [id number] 0 08/21 CBC w/ auto diff WBC K/uL 3.0 8.9 6.2 FINAL [facility] - [place], [address] [place] [phone] 0 Phone: () - 08/21 CBC w/ auto diff HGB g/dL 11.3 15.2 11.1 Low FINAL [facility] - [place], [address] [place] [id number] 0 Phone: () - 08/21 CBC w/ auto diff PLT K/uL 113.0 364.0 321 FINAL [facility] - [place], [address] [place] [id number] 0 Phone: () - 08/21 CBC w/ auto diff Scott # (ANC) K/uL 1.6 6.6 3.8 FINAL [facility] - [place], [address] [place] [phone] 0 Phone: () - 08/21 CBC w/ auto diff Scott % % 43.0 74.0 60.3 FINAL [facility] - [place], [address] [place] [phone] 0 Phone: () - 08/21 CBC w/ auto diff IG % % 0.0 0.5 0.5 FINAL [facility] - [place], [address] [place] [id number] 0 Phone: () - 08/21 CBC w/ auto diff IG # K/uL 0.0 0.03 0.03 FINAL [facility] - [place], [address] [place] [id number] 0 Phone: () - 08/21 CBC w/ auto diff LY % % 14.0 41.0 28.2 FINAL W[facility] - [place], [address] [place] [id number] 0 Phone: () - 08/21 CBC w/ auto diff MO % % 6.0 15.0 8.8 FINAL [facility] - [place], [address] [place] [id number] 0 Phone: () - 08/21 CBC w/ auto diff EO % % 0.0 7.0 1.6 FINAL [facility] - [place], [address] [place] [id number] 0 Phone: () - 08/21 CBC w/ auto diff BA % % 0.0 2.0 0.6 FINAL [facility] - [place], [address] [place] [id number] 0 Phone: () - 08/21 CBC w/ auto diff LY # K/uL 0.4 3.6 1.8 FINAL [facility] - [place], [address] [place] [phone] 0 Phone: () - 08/21 CBC w/ auto diff MO # K/uL 0.2 1.3 0.6 FINAL [facility] - [place], [address] [place] [id number] 0 Phone: () - 08/21 CBC w/ auto diff EO # K/uL 0.0 0.6 0.1 FINAL [facility] - [place], [address] [place] [id number] 0 Phone: () - 08/21 CBC w/ auto diff BA # K/uL 0.0 0.2 0.0 FINAL [facility] - [place], [address] [place] [id number] 0 Phone: () - 08/21 CBC w/ auto diff NRBC % #/100W BC 0.0 0.2 0.0 FINAL W[facility] Xavier [facility] - [place], [address] [place] [id number] 0 Phone: () - 08/21 CBC w/ auto diff RBC M/uL 3.9 5.1 4.29 FINAL [facility] - [place], [address] [place] [id number] 0 Phone: () - 08/21 CBC w/ auto diff HCT % 35.0 48.0 36.1 FINAL [facility] - [place], [address] [place] [address] [address] [place] [phone] 0 Phone: () - 08/21 CBC w/ auto diff MCV fL 80.0 104.0 84.1 FINAL [facility] - [place], [address] [place] [address] [address] [place] [id number] 0 Phone: () - 08/21 CBC w/ auto diff MCH pg 26.0 35.0 25.9 Low FINAL [facility] - [place], [address] [place] [address] [address] [place] [id number] 0 Phone: () - 08/21 CBC w/ auto diff MCHC g/dL 30.0 35.0 30.7 FINAL [facility] - [place], [address] [facility] [address] [place] [phone] 0 Phone: () - 08/21 CBC w/ auto diff MPV fL 9.5 13.4 8.4 Low FINAL [facility] - [place], [facility] [address] [place] [id number] 0 Phone: () - 08/21 CBC w/ auto diff RDW % 11.4 16.1 14.10 FINAL [facility] - [place], [address] [place] [id number] 0 Phone: () - 08/21 Iron profi le TIBC ug/dL 265.0 497.0 372 FINAL Wiliam Park * [facility], [address] [facility] [id number] 0 08/21 Iron profi le Iron ug/dL 37.0 170.0 94 FINAL Wiliam Park * [facility], [address] [facility] [id number] 0 08/21 Iron profi le Unbou nd iron capac ity ug/dL 75.0 410.0 278 FINAL Wiliam Park * [facility], [address] [facility] [id number] 0 08/21 Iron profi le Iron, % satur ation % 20.0 55.0 25 FINAL Wiliam Park * [facility], [address] [facility] [id number] 0 Medications Date Name Route Dose Frequency [...] MACIEL Date Of : 1985 Today's Provider:?Wiliam CHOUDHURY Date of Service:?08/21/2024 Attending Physician:?Wiliam Park (Medical [...] she has heavy bleeding.?She has consulted with endoscopy tech in the past,??however unableto tolerate??oral contraceptive pills [...] No; Screening Date: 08/21/2024; Screening Tool: PRIME [id number]; Total depression score: 0 History of Present [...] she has heavy bleeding.?She has consulted with endoscopy tech in the past,??however unableto tolerate??oral contraceptive pills [...]
--- OUTSIDE RECORDS SUMMARY | 2025-02-12 22:00 | XMS_ITS | CCD ---
Author Name Interface, [id number] lity Address [address] [facility] [address] [address] [facility] Oncology Address [address] [facility] [address] [address] Care Team Providers Care Tour Manager Name Role Phone Wiliam Park Unavailable Unavailable [...] le, [address] [facility] [phone] 0 Phone: () - 08/21 CBC w/ auto diff IG % % 0.0 0.5 0.5 FINAL [facility] - [place], [address] [place] [phone] 0 Phone: () - 08/21 CBC w/ auto diff MO # K/uL 0.2 1.3 0.6 FINAL [facility] - [place], [address] [place] [id number] 0 Phone: () - 08/21 CBC w/ auto diff MCV fL 80.0 104.0 84.1 FINAL [facility] - [place], [address] [place] [id number] 0 Phone: () - 08/21 CBC w/ auto diff IG # K/uL 0.0 0.03 0.03 FINAL [facility] - [place], [address] [facility] [address] [place] [phone] 0 Phone: () - 08/21 CBC w/ auto diff MO % % 6.0 15.0 8.8 FINAL [facility] - [place], [address] [place] [id number] 0 Phone: () - 08/21 CBC w/ auto diff EO # K/uL 0.0 0.6 0.1 FINAL [facility] - [place], [address] [place] [id number] 0 Phone: () - 08/21 CBC w/ auto diff EO % % 0.0 7.0 1.6 FINAL [facility] - [place], [address] [place] [id number] 0 Phone: () - 08/21 CBC w/ auto diff RBC M/uL 3.9 5.1 4.29 FINAL [facility] - [place], [address] [place] [id number] 0 Phone: () - 08/21 CBC w/ auto diff MPV fL 9.5 13.4 8.4 Low FINAL [facility] - [place], [address] [place] [id number] 0 Phone: () - 08/21 CBC w/ auto diff WBC K/uL 3.0 8.9 6.2 FINAL W[facility] Xavier [facility] - [place], [address] [place] [id number] 0 Phone: () - 08/21 CBC w/ auto diff PLT K/uL 113.0 364.0 321 FINAL W[facility]am Xavier [facility] - [place], [address] [place] [id number] 0 Phone: () - 08/21 CBC w/ auto diff BA % % 0.0 2.0 0.6 FINAL [facility] - [place], [address] [place] [id number] 0 Phone: () - 08/21 CBC w/ auto diff BA # K/uL 0.0 0.2 0.0 FINAL [facility] - [place], [address] [place] [id number] 0 Phone: () - 08/21 CBC w/ auto diff HGB g/dL 11.3 15.2 11.1 Low FINAL [facility] - [place], [address] [place] [id number] 0 Phone: () - 08/21 CBC w/ auto diff RDW % 11.4 16.1 14.10 FINAL [facility] - [place], [address] [place] [id number] 0 Phone: () - 10/01 /2024 CBC w/ auto diff LY % % 14.0 41.0 28.2 FINAL [facility] - [place], [address] [place] [id number] 0 Phone: () - 08/21 CBC w/ auto diff LY # K/uL 0.4 3.6 1.8 FINAL [facility] - [place], [address] [facility] [address] [place] [id number] 0 Phone: () - 08/21 CBC w/ auto diff MCH pg 26.0 35.0 25.9 Low FINAL W[facility] - [place], [address] [place] [id number] 0 Phone: () - 08/21 CBC w/ auto diff MCHC g/dL 30.0 35.0 30.7 FINAL [facility] - [place], [address] [facility] [address] [place] [id number] 0 Phone: () - 08/21 CBC w/ auto diff NRBC % #/100W BC 0.0 0.2 0.0 FINAL [facility] - [place], [address] [place] [phone] 0 Phone: () - 08/21 CBC w/ auto diff HCT % 35.0 48.0 36.1 FINAL [facility] - [place], [address] [place] [id number] 0 Phone: () - 08/21 CBC w/ auto diff Scott % % 43.0 74.0 60.3 FINAL [facility] - [place], [address] [place] [id number] 0 Phone: () - 08/21 Eleno tin panel Eleno tin ng/mL 6.24 137.0 5.37 Low FINAL Wiliam Xavier [facility] - [place], [address] [facility] [place] [id number] 0 02/22 Retic ulocy te count % 0.4 1.6 1.73 High FINAL W[facility] - [place], [address] [place] [id number] 0 Phone: () - 02/22 Retic ulocy te cellu lar hemog lobin pg 28.0 37.0 32.9 FINAL [facility] - [place], [address] [place] [id number] 0 Phone: () - 02/22 Retic ulocy te, absol [place] M/uL 0.02 0.08 0.08 FINAL [facility] - [place], [address] [place] [id number] 0 Phone: () - 02/22 Immat ure retic ulocy te fract ion, % % 0.0 16.5 10.70 FINAL [facility] - [place], [address] [place] [phone] 0 Phone: () - 08/21 Iron profi le Iron, % satur ation % 20.0 55.0 25 FINAL Wiliam Xavier * [facility] [place], [address] [facility] [id number] 0 08/21 Iron profi le Iron ug/dL 37.0 170.0 94 FINAL Wiliam Xavier * [facility] - [place], [address] [facility] [place] [id number] 0 08/21 Iron profi le TIBC ug/dL 265.0 497.0 372 FINAL Wiliam Xavier * [facility] - [place], [address] [facility] [place] [id number] 0 08/21 Iron profi le Unbou nd iron capac ity ug/dL 75.0 410.0 278 FINAL Wiliam Park * [facility] [place], [address] [facility] [address] [facility] [id number] Medications Administered Date Name Route Dose [...]
--- OUTSIDE RECORDS SUMMARY | 2025-02-12 22:00 | XMS_ITS ---
Author Name Interface, [id number] lity Address [address] [place] [address] [address] [address] [facility] Address [address] [facility] [address] [address] Care Team Providers Care Benzene Worker Name Role Phone [place] Unavailable Unavailable [...] Wiliam Xavier * [facility] [place], [facility] [address] [facility] [phone] 0 08/21 CBC w/ auto diff WBC K/uL 3.0 8.9 6.2 FINAL Wiliam Xavier [facility] [place], [address] [place] [id number] 0 Phone: () - 08/21 CBC w/ auto diff HGB g/dL 11.3 15.2 11.1 Low FINAL Wiliam Xavier [facility] [place], [address] [place] [id number] 0 Phone: () - 08/21 CBC w/ auto diff PLT K/uL 113.0 364.0 321 FINAL Wiliam Xavier [facility] [place], [address] [place] [id number] 0 Phone: () - 08/21 CBC w/ auto diff Scott # (ANC) K/uL 1.6 6.6 3.8 FINAL Wiliam Xavier [facility] [place], [address] [place] [phone] 0 Phone: () - 08/21 CBC w/ auto diff Scott % % 43.0 74.0 60.3 FINAL Wiliam Xavier [facility] [place], [address] [place] [id number] 0 Phone: () - 08/21 CBC w/ auto diff IG % % 0.0 0.5 0.5 FINAL Wiliam Xavier [facility] [place], [address] [place] [phone] 0 Phone: () - 08/21 CBC w/ auto diff IG # K/uL 0.0 0.03 0.03 FINAL Wiliam Xavier [facility] [place], [address] [place] [phone] 0 Phone: () - 08/21 CBC w/ auto diff LY % % 14.0 41.0 28.2 FINAL Wiliam Xavier [facility] [place], [address] [place] [phone] 0 Phone: () - 08/21 CBC w/ auto diff MO % % 6.0 15.0 8.8 FINAL [facility]os [facility] [place], [address] [place] [id number] 0 Phone: () - 08/21 CBC w/ auto diff EO % % 0.0 7.0 1.6 FINAL [facility] [facility] [place], [address] [place] [id number] 0 Phone: () - 08/21 CBC w/ auto diff BA % % 0.0 2.0 0.6 FINAL [facility] [facility] [place], [address] [place] [id number] 0 Phone: () - 08/21 CBC w/ auto diff LY # K/uL 0.4 3.6 1.8 FINAL Wiliam Xavier [facility] [place], [address] [place] [id number] 0 Phone: () - 08/21 CBC w/ auto diff MO # K/uL 0.2 1.3 0.6 FINAL [facility] [place], [address] [place] [id number] 0 Phone: () - 08/21 CBC w/ auto diff EO # K/uL 0.0 0.6 0.1 FINAL [facility] [facility] [place], [address] [place] [id number] 0 Phone: () - 08/21 CBC w/ auto diff BA # K/uL 0.0 0.2 0.0 FINAL [facility] [facility] [place], [address] [place] [id number] 0 Phone: () - 08/21 CBC w/ auto diff NRBC % #/100W BC 0.0 0.2 0.0 FINAL Wiliam Xavier [facility] [place], [address] [place] [id number] 0 Phone: () - 08/21 CBC w/ auto diff RBC M/uL 3.9 5.1 4.29 FINAL Wiliam Xavier [facility] [place], [address] [place] [id number] 0 Phone: () - 08/21 CBC w/ auto diff HCT % 35.0 48.0 36.1 FINAL Wiliam Xavier [facility] [place], [address] [place] [address] [address] [place] [phone] 0 Phone: () - 08/21 CBC w/ auto diff MCV fL 80.0 104.0 84.1 FINAL Wiliam Xavier [facility] [place], [address] [place] [address] [address] [place] [id number] 0 Phone: () - 08/21 CBC w/ auto diff MCH pg 26.0 35.0 25.9 Low FINAL Wiliam Xavier [facility] [place], [address] [place] [address] [address] [place] [id number] 0 Phone: () - 08/21 CBC w/ auto diff MCHC g/dL 30.0 35.0 30.7 FINAL Wiliam Xavier [facility] [place], [address] [facility] [address] [place] [id number] 0 Phone: () - 08/21 CBC w/ auto diff MPV fL 9.5 13.4 8.4 Low FINAL Wiliam Xavier [facility] [place], [facility] [address] [place] [id number] 0 Phone: () - 08/21 CBC w/ auto diff RDW % 11.4 16.1 14.10 FINAL Wiliam Xavier [facility] [place], [address] [place] [id number] 0 Phone: () - 08/21 Iron profi le TIBC ug/dL 265.0 497.0 372 FINAL Wiliam Park * [facility], [address] [facility] [id number] 0 08/21 Iron profi le Iron ug/dL 37.0 170.0 94 FINAL Wiliam Park * [facility], [address] [facility] [id number] 0 08/21 Iron profi le Unbou nd iron capac ity ug/dL 75.0 410.0 278 FINAL Wiliam Park * [facility], [address] [facility] [id number] 0 08/21 Iron profi le Iron, % satur ation % 20.0 55.0 25 FINAL Wiliam Park * [facility], [address] [facility] [phone] 0 Medications Date Name Route Dose Frequency [...] she has heavy bleeding.?She has consulted with tents assembler in the past,??however unableto tolerate??oral contraceptive pills [...] she has heavy bleeding.?She has consulted with tents assembler in the past,??however unableto tolerate??oral contraceptive pills [...]
[2025-02-12] MEDS: ACETAMINOPHEN 500 MG TABLET 1000 MG PO (23:37)
== END 2025-02-12 23:42 | disposition home or self-care (01) ==
PROVIDERS: Emergency Provider Family Medicine; PCP Internal Medicine
DX: M25.512 Pain in left shoulder (principal); S20.212A Contusion of left front wall of thorax, initial encounter; V40.0XXA Car driver injured in collision with pedestrian or animal in nontraffic accident, initial encounter
CPT/HCPCS: 71101; 73030; 99284; A9270

== ENCOUNTER 2025-09-24 17:08 | Emergency (ER) | payer MEDICAID, SELFPAY ==
--- OUTSIDE RECORDS SUMMARY | 2025-07-09 22:30 | XMS_ITS | Continuity of Care Document ---
Author Organization [facility] Address [address] [address] [place] [address] Phone Care Team Providers Care Automotive Artist Name Role Phone No Information Unavailable Unavailable Advance Directives Directive Yes / No Effective Date File Name No Information Encounters Encounter Description Practice Location Reason(s) For Visit Diagnoses Date Provider Providers Copied on Encounter [facility], [address] [address], [place], [place], [id number], [place] tel:[phone] No Information No Information Family History Family [...]
--- OUTSIDE RECORDS SUMMARY | 2025-07-09 22:30 | XMS_ITS | Continuity of Care Document ---
Author Organization [facility] Address [address] [address] [place] [address] Phone Care Team Providers Care Manager Balance Name Role Phone No Information Unavailable Unavailable Advance Directives Directive Yes / No Effective Date File Name No Information Encounters Encounter Description Practice Location Reason(s) For Visit Diagnoses Date Provider Providers Copied on Encounter [facility], [address] [address], [place], [place], [id number], [place] tel:[phone] No Information No Information Family History Family Member Type Diagnosis Age At Onset No Information Payers Payer name Insurance type Covered constitution party ID Authoriza tion(s) No Information Social History [...]
--- OUTSIDE RECORDS SUMMARY | 2025-09-24 17:11 | XMS_ITS | Clinical Summary ---
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 Not on file Not [...] Body Mass Index 34.59 10/07/2018 8:15 AM ROOFING SUPERVISOR Plan of Treatment Health Maintenance Due Date Last Done Comments Depression screening for age 12+ 1997 HIV for age 15-65 2000 Hepatitis C screening for age 18-79 2003 Hepatitis B series for 19+ (1 of 3 - 19+ 3-dose series) 2004 HPV series for age 9-45 (1 - 3-dose SCDM series) 2012 Tetanus booster 05/09/2018 05/09/2008 BMI (ht and wt on same day) for age 18+ 10/07/2019 10/07/2018 Influenza Vaccine (#1) 2025 1, 08/19/2010, 10/24/2006 Pap test for age 21-65 04/24/2027 4, 04/24/2024, 05/31/2022, Additional history exists RSV vaccine for adults or (1 - 1-dose 75+ series) 2060 Pneumococcal series for age 6-49 Aged Out No longer eligible based on patient's age to complete this topic Procedures Procedure Name Priority Date/Time Associated Diagnosis Comments HPV HIGH RISK Routine 04/24/2024 12:13 PM CDT from Last 3 Months or Most Recently Relevant to Health Maintenance Results * HPV HIGH RISK (04/24/2024 12:13 PM CDT) TYPE 16 Negative Negative 04/27/2024 4:31 PM CDT [facility] TYPE 18 Negative Negative 04/27/2024 4:31 PM CDT [facility] OTHER HIGH RISK TYPES Negative Negative 04/27/2024 4:31 PM CDT [facility] Other (Cervical) 04/24/2024 12:13 PM CDT 04/26/2024 10:18 AM CDT Narrative [facility] - 04/27/2024 4:31 PM CDT HPV types 16, 18, 31, 33, 35, 39, 45, 51, 52, 56, 58, 59, 66 and 68 DNA were undetectable or below the pre-set threshold. Methodology: April Gabriel 4800 HPV Test february Everardo FOX [employer] Final Resu lt [facility] [address] [place] [address], [place] from Last 3 Months or Most Recently Relevant to Health Maintenance Insurance [facility] Member Subscriber Plan / Payer (Ef fective 2021-Present) Name:Tiffany Casas Relation to Subscriber:Self Name:Tiffany Casas Payer ID:[id number] (NA) Type:Not on file Address: [address] [place] [id number] Care Teams Lithographic Photographer Apprentice Relationship Specialty Start Date End Date John Avalos MD [address] [place] [address] PCP - General Internal Medicine 06/20/17
--- OUTSIDE RECORDS SUMMARY | 2025-09-24 17:11 | XMS_ITS ---
Author Name Interface, T8Fnrdqhl lity Address [address] [place] [address] [address] [place] [address] [facility] Address [facility] [address] [place] [address] Support Name Relationship Address Phone TIGIST HECK Friend Unknown Unavailable Allergies and Adverse Reactions Plan Reason for Visit Encounters Medications Problems Vital Signs Notes Section
--- OUTSIDE RECORDS SUMMARY | 2025-09-24 17:11 | XMS_ITS | CCD ---
Author Name Interface, [employer] Address [address] [facility] [address] [address] Organization [facility] Address [address] [facility] [address] [address] Care Team Providers Care Directory Operator Name Role Phone Wiliam Moore Unavailable Unavailable Allergies and Adverse Reactions Medication/Group Name Reaction Severity Date Compazine 09/19/2025 citalopram 09/19/2025 sumatriptan 09/19/2025 topiramate 09/19/2025 morphine 09/19/2025 Care Plan Date Type Value 12/20/2025 APPOINTMENT TREATMENT 1 HR 12/20/2025 APPOINTMENT OV 20 MIN 09/19/2025 APPOINTMENT TREATMENT 1 HR 09/19/2025 APPOINTMENT OV 20 MIN 09/12/2025 APPOINTMENT LAB 10 MIN 07/05/2025 APPOINTMENT TREATMENT 1 HR 06/18/2025 APPOINTMENT OV 20 MIN 06/11/2025 APPOINTMENT LAB 15 MIN 03/19/2025 APPOINTMENT TREATMENT 1 HR 03/19/2025 APPOINTMENT OV 20 MIN 03/15/2025 APPOINTMENT OV 20 MIN 03/11/2025 APPOINTMENT LAB 15 MIN 01/10/2025 APPOINTMENT OV 20 MIN 01/10/2025 APPOINTMENT LAB 15 MIN 12/20/2024 APPOINTMENT LAB 15 MIN 12/20/2024 APPOINTMENT OV 20 MIN 03/11/2025 LAB_ORDER Iron profile 03/11/2025 LAB_ORDER CBC w/ auto diff 03/11/2025 LAB_ORDER Ferritin panel 06/11/2025 LAB_ORDER Iron profile 06/11/2025 LAB_ORDER Ferritin panel 06/11/2025 LAB_ORDER CMP 06/11/2025 LAB_ORDER CBC w/ auto diff 09/12/2025 LAB_ORDER CMP 09/12/2025 LAB_ORDER Ferritin panel 09/12/2025 LAB_ORDER CBC w/ auto diff 09/12/2025 LAB_ORDER Iron profile 12/20/2025 LAB_ORDER Ferritin panel 12/20/2025 LAB_ORDER CBC w/ auto diff 12/20/2025 LAB_ORDER CMP 12/20/2025 LAB_ORDER Iron profile Reason for Visit OV 20 MIN Encounters Date Name 12/20/2025 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 12/20/2025 Menorrhagia (finding ) 12/20/2025 Menorrhagia (finding ) 12/20/2025 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 09/19/2025 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 No 07/27/2025 Are you blind or do you have serious difficulty seeing, even when wearing glasses? No 07/27/2025 Because of a physica l, mental, or emotional condition, do you have serious difficulty concentrating, remembering, or making decisions? No 07/27/2025 Do you have serious difficulty w alking or climbing stairs? No 07/27/2025 Do you have difficulty dressing or bathing? No 07/27/2025 Because of a physica l, mental, or emotional condition, do you have difficulty doing errands alone such as visiting a physician's office or shopping? No Health Insurance Date Start Date End Coverage Status Coverage Type Relationship to Subscriber Member Identifier Subscriber Identifier Group Identifier Payer Identifier 2023 Active Other [id number] 2023 Inactive Other 519 Diagnostic Results Date Type Test Units Lower Limit Upper Limit Result Flag Comments Status Ordered By Specimen Source Lab Address 09/12 CBC w/ auto diff Scott # (ANC) K/uL 1.6 6.6 5.8 FINAL Wiliam Jain [place] [facility] [place] [facility] , [address] [place] [id number] 0 09/12 CBC w/ auto diff IG % % 0.0 0.5 0.2 FINAL Wiliam Xavier [place] [facility] [place] [facility] , [address] [place] [id number] 0 09/12 CBC w/ auto diff MO # K/uL 0.2 1.3 0.7 FINAL Wiliam Xavier [place] [facility] [place] [facility] , [address] [place] [id number] 0 09/12 CBC w/ auto diff MCV fL 80.0 104.0 88.7 FINAL Wiliam Xavier [place] [facility] [place] [facility] , [address] [place] [id number] 0 09/12 CBC w/ auto diff IG # K/uL 0.0 0.03 0.02 FINAL Wiliam Xavier [place] [facility] [place] [facility] , [address] [place] [id number] 0 09/12 CBC w/ auto diff MO % % 6.0 15.0 7.8 FINAL Wiliam Xavier [place] [facility] [place] [facility] , [address] [place] [id number] 0 09/12 CBC w/ auto diff EO # K/uL 0.0 0.6 0.1 FINAL Wiliam Xavier [place] [facility] [place] [facility] , [address] [place] [id number] 0 09/12 CBC w/ auto diff EO % % 0.0 7.0 0.9 FINAL Wiliam Park [place] [facility] [place] [facility] , [address] [place] [id number] 0 09/12 CBC w/ auto diff RBC M/uL 3.9 5.1 4.78 FINAL Wiliam Park [place] [facility] [place] [facility] , [address] [place] [id number] 0 09/12 CBC w/ auto diff MPV fL 9.5 13.4 8.5 Low FINAL Wiliam Park [place] [facility] [place] [facility] , [address] [place] [id number] 0 09/12 CBC w/ auto diff WBC K/uL 3.0 8.9 8.6 FINAL Wiilam Park [place] [facility] [place] [facility] , [address] [place] [id number] 0 09/12 CBC w/ auto diff PLT K/uL 113.0 364.0 289 FINAL Wiliam Park [place] [facility] [place] [facility] , [address] [place] [id number] 0 09/12 CBC w/ auto diff BA % % 0.0 2.0 0.5 FINAL Wiliam Park [place] [facility] [place] [facility] , [address] [place] [id number] 0 09/12 CBC w/ auto diff BA # K/uL 0.0 0.2 0.0 FINAL Wiliam Park [place] [facility] [place] [facility] , [address] [place] [id number] 0 09/12 CBC w/ auto diff HGB g/dL 11.3 15.2 13.7 FINAL Wiliam Park [place] [facility] [place] [facility] , [address] [place] [id number] 0 09/12 CBC w/ auto diff RDW % 11.4 16.1 13.20 FINAL Wiliam Park [place] [facility] [place] [facility] , [address] [place] [id number] 0 09/12 CBC w/ auto diff LY % % 14.0 41.0 22.5 FINAL Wiliam Park [place] [facility] [place] [facility] , [address] [place] [id number] 0 09/12 CBC w/ auto diff LY # K/uL 0.4 3.6 1.9 FINAL Wiliam Xavier [place] [facility] [place] [facility] , [address] [place] [id number] 0 09/12 CBC w/ auto diff MCH pg 26.0 35.0 28.7 FINAL Wiliam Xavier [place] [facility] [place] [facility] , [address] [place] [id number] 0 09/12 CBC w/ auto diff MCHC g/dL 30.0 35.0 32.3 FINAL Wiliam Park [place] [facility] [place] [facility] , [address] [place] [id number] 0 09/12 CBC w/ auto diff NRBC % #/100W BC 0.0 0.2 0.0 FINAL Wiliam Park [place] [facility] [place] [facility] , [address] [place] [id number] 0 09/12 CBC w/ auto diff HCT % 35.0 48.0 42.4 FINAL Wiliam Gaona [facility] , [address] [facility] [id number] 0 09/12 CBC w/ auto diff Scott % % 43.0 74.0 68.1 FINAL Wiliam Park [facility] , [address] [facility] [id number] 0 09/12 CMP Alkal ine phosp hatas e U/L 36.0 125.0 54 FINAL Wiliam Jain * [facility] , [address] [facility] [id number] 0 09/12 CMP ALT/S GPT U/L 0.0 34.0 17 FINAL Wiliam Jain * [facility] , [address] [facility] [id number] 0 09/12 CMP Calci um mg/dL 8.4 10.2 9.2 FINAL Wiliam Jain * [facility] , [address] [facility] [id number] 0 09/12 CMP GFR estim ate ml/min /1.73m ^2 112.0 GFR is calculate d using the CKD-EPI equation. FINAL Wiliam Jain * [facility] , [address] [facility] [id number] 0 09/12 CMP CO2 mmol/L 22.0 30.0 27 The expected total allowable error for CO2 is 5.6%. We have seen up to 10% differenc e in values if reported at the end of the 96 hour stability window. Please consider the clinical significa nce of a 2.0-2.5 mmol/L lower reported CO2 value if reported at the end of the 96 hour stability window. FINAL Wiliam Park * [facility] , [address] [facility] [id number] 0 09/12 CMP Gluco se mg/dL 74.0 100.0 72 Low FINAL Wiliam Park * [facility] , [address] [facility] [id number] 0 09/12 CMP Chlor kristi mmol/L 96.0 107.0 107 FINAL Wiliam Park * [facility] , [address] [facility] [id number] 0 09/12 CMP Total prote in g/dL 6.3 8.2 7.1 FINAL Wiliam Park * [facility] , [address] [facility] [id number] 0 09/12 CMP BUN mg/dL 7.0 17.0 10.0 FINAL Wiliam Park * [facility] , [address] [facility] [id number] 0 09/12 CMP Creat inine mg/dL 0.66 1.25 0.70 FINAL Wiliam Park * [facility] , [address] [facility] [id number] 0 09/12 CMP AST/S GOT U/L 14.0 36.0 27 FINAL Wiliam Park * [facility] , [address] [facility] [id number] 0 09/12 CMP Album in g/dL 3.5 5.0 4.4 FINAL Wiliam Park * [facility] , [address] [facility] [id number] 0 09/12 CMP Bilir ubin, total mg/dL 0.2 1.3 0.3 FINAL Wiliam Park * [facility] , [address] [facility] [id number] 0 09/12 CMP Sodiu m mmol/L 137.0 145.0 140 FINAL Wiliam Park * [facility] , [address] [facility] [id number] 0 09/12 CMP Potas sium mmol/L 3.5 5.1 3.8 FINAL Wiliam Park * [facility] , [address] [id number] 0 09/12 Iron profi le Iron, % satur ation % 20.0 55.0 18 Low FINAL Wiliam Park * [facility] , [address] [id number] 0 09/12 Iron profi le Iron ug/dL 37.0 170.0 63 FINAL Wiliam Park * [facility] , [address] [id number] 0 09/12 Iron profi le TIBC ug/dL 265.0 497.0 353 FINAL Wiliam Park * [facility] , [address] [id number] 0 09/12 Iron profi le Unbou nd iron capac ity ug/dL 75.0 410.0 290 FINAL Wiliam Park * [facility] , [address] [id number] 0 09/12 Eleno tin panel Eleno tin ng/mL 6.24 264.0 10.70 FINAL Wiliam Park * [facility] , [address] [id number] 0 10/09 [facility] [place], [place] other lab 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 Dilute in 100-500 mL NS to a final concentration greater than 1 mg iron/mL. Infuse over at least 20 minutes. Do not mix or infuse with other drugs. Monitor for signs and symptoms of hypersensitivity during and for at least 30 minutes after administration. Ferric derisomaltose is an irritant. 09/19/2025 09/19/2025 inactive 07/05/2025 10 ML ferric derisomaltose 100 MG/ML Injection intravenously 1000.0 mg once For actual body weight greater than or equal to 50 kg. Dilute in 100-500 mL NS to a final concentration greater than 1 mg iron/mL. Infuse over at least 20 minutes. Do not mix or infuse with other drugs. Monitor for signs and symptoms of hypersensitivity during and for at least 30 minutes after administration. Ferric derisomaltose is an irritant. 07/05/2025 07/05/2025 inactive 03/19/2025 10 ML ferric derisomaltose 100 MG/ML Injection intravenously 1000.0 mg once For actual body weight greater than or equal to 50 kg. Dilute in 100-500 mL NS to a final concentration greater than 1 mg iron/mL. Infuse over at least 20 minutes. Do not mix or infuse with other drugs. Monitor for signs and symptoms of hypersensitivity during and for at least 30 minutes after administration. Ferric derisomaltose is an irritant. 03/19/2025 03/19/2025 inactive Medications Date Name Route Dose Frequency Instructions Start Date End Date Status Fill Status Indication 03/19 Finaste ride Oral (Prosca r) active 12/21 Semaglu tide (weight loss) Subcuta neous Pen Injecto r weekly active 12/21 Phenter mine Oral QD active 12/21 Olanzap ine Oral QD inactive 12/21 Minoxid il Oral QD active 02/22 Choleca lcifero l Oral QD active 12/21 Valacyc lovir Oral QD active 06/18 1 ML epineph rine 1 MG/ML Injecti on intramu scularl y 0.3 mg once Re-initiate treatment only upon physician approval. 2025 active Iron deficiency anemia secondary to blood loss 06/18 methylp redniso lone 2000 MG Injecti on intrave nously 125.0 mg Re-initiate treatment only upon physician approval. 2025 active Iron deficiency anemia secondary to blood loss 06/18 famotid ine 10 MG/ML Injecta ble Solutio n intrave nously 20.0 mg Re-initiate treatment only upon physician approval. 2025 active Iron deficiency anemia secondary to blood loss 06/18 10 ML ferric derisom altose 100 MG/ML Injecti on intrave nously 1000. 0 mg once For actual body weight greater than or equal to 50 kg. Dilute in 100-500 mL NS to a final concentration greater than 1 mg iron/mL. Infuse over at least 20 minutes. Do not mix or infuse with other drugs. Monitor for signs and symptoms of hypersensitivi ty during and for at least 30 minutes after administration . Ferric derisomaltose is an irritant. 2025 active Iron deficiency anemia secondary to blood loss 06/18 hydroco rtisone 100 MG Injecti on intrave nously 100.0 mg Re-initiate treatment only upon physician approval. 2025 active Iron deficiency anemia secondary to blood loss 09/19 ascorbi c acid 125 MG / iron carbony l 65 MG Delayed Release Oral Tablet [Vitron -C Reformu lated May 2016] orally 1.0 tab every other day 2024 active Iron deficiency anemia secondary to blood loss 06/18 methylp redniso lone 2000 MG Injecti on intrave nously 125.0 mg Re-initiate treatment only upon physician approval. 2024 active Iron deficiency anemia secondary to blood loss 06/18 hydroco rtisone 100 MG Injecti on intrave nously 100.0 mg Re-initiate treatment only upon physician approval. 2024 active Iron deficiency anemia secondary to blood loss 06/18 famotid ine 10 MG/ML Injecta ble Solutio n intrave nously 20.0 mg Re-initiate treatment only upon physician approval. 2024 active Iron deficiency anemia secondary to blood loss 06/18 1 ML epineph rine 1 MG/ML Injecti on intramu scularl y 0.3 mg once Re-initiate treatment only upon physician approval. 2024 active Iron deficiency anemia secondary to blood loss 06/18 methylp redniso lone 2000 MG Injecti on intrave nously 125.0 mg Re-initiate treatment only upon physician approval. 2024 active Iron deficiency anemia secondary to blood loss 06/18 famotid ine 10 MG/ML Injecta ble Solutio n intrave nously 20.0 mg Re-initiate treatment only upon physician approval. 2024 active Iron deficiency anemia secondary to blood loss 06/18 1 ML epineph rine 1 MG/ML Injecti on intramu scularl y 0.3 mg once Re-initiate treatment only upon physician approval. 2024 active Iron deficiency anemia secondary to blood loss 06/18 hydroco rtisone 100 MG Injecti on intrave nously 100.0 mg Re-initiate treatment only upon physician approval. 2024 active Iron deficiency anemia secondary to blood loss 03/12 methylp redniso lone 2000 MG Injecti on intrave nously 125.0 mg Re-initiate treatment only upon physician approval. 2024 active Iron deficiency anemia secondary to blood loss 03/12 1 ML epineph rine 1 MG/ML Injecti on intramu scularl y 0.3 mg once Re-initiate treatment only upon physician approval. 2024 active Iron deficiency anemia secondary to blood loss 03/19 ascorbi c acid 125 MG / iron carbony l 65 MG Delayed Release Oral Tablet [Vitron -C Reformu lated May 2016] orally 1.0 tab every other day 2024 active Iron deficiency anemia secondary to blood loss 03/12 famotid ine 10 MG/ML Injecta ble Solutio n intrave nously 20.0 mg Re-initiate treatment only upon physician approval. 2024 active Iron deficiency anemia secondary to blood loss 03/12 hydroco rtisone 100 MG Injecti on intrave nously 100.0 mg Re-initiate treatment only upon physician approval. 2024 active Iron deficiency anemia secondary to blood loss Problems Diagnosis Status Date of Diagnosis Resolution Date Anemia Active Iron deficiency anemia sindi vaughan to blood loss Active Menorrhagia (finding) Active Cannot tolerate oral iron Active Procedures Date Category Name Instructions Status 01/10/2025 Physician Order RTC MD Ordered 03/19/2025 Physician Order RTC nurse for injection Ordered 06/18/2025 Physician Order RTC MD Ordered 06/18/2025 Physician Order GI consult Presented wi th iron deficiency anemia please consider for colonoscopy to rule out GI blood lossMNGI Ordered 06/25/2025 Physician Order RTC nurse for ir on infusion Iron infusion, pharmacy to confirm type and frequency of iron product per insurance coverage, scheduling to contact patient if appointments need to be changed Ordered 09/18/2025 Physician Order RTC MD Ordered 09/18/2025 Physician Order RTC nurse for ir on infusion Iron infusion, pharmacy to confirm type and frequency of iron product per insurance coverage, scheduling to contact patient if appointments need to be changed Ordered 12/20/2025 Physician Order RTC MD Ordered 12/20/2025 Physician Order RTC nurse for ir on infusion Iron infusion, pharmacy to confirm type and frequency of iron product per insurance coverage, scheduling to contact patient if appointments need to be changed Ordered Social History Date Name Value 03/19/2025 Smoking Status Never smoker 09/19/2025 Smoking Status Never smoker 06/28/2025 Sex Female Sexual Orientation Choose not to disclose 09/05/2025 Gender Identity Identifies as fe male Visits Date Type Value 12/20/2025 TREATMENT 1 HR 12/20/2025 OV 20 MIN Vital Signs Date Type Value 03/19/2025 BSA 1.88 03/19/2025 BMI 27.99 03/19/2025 Height 66.00 03/19/2025 Weight 173.40 03/19/2025 Pain Scale 0.00 03/19/2025 Intravascular Systolic 110 03/19/2025 Intravascular Diastolic 68 03/19/2025 Oxygen Saturation 99.00 03/19/2025 Respiratory Rate 16.00 03/19/2025 Heart Beat 83.00 03/19/2025 Body Temperature 98.20 06/18/2025 BSA 1.89 06/18/2025 Body Temperature 97.50 06/18/2025 Heart Beat 77.00 06/18/2025 Respiratory Rate 16.00 06/18/2025 BMI 28.18 06/18/2025 Intravascular Systolic 116 06/18/2025 Intravascular Diastolic 80 06/18/2025 Pain Scale 0.00 06/18/2025 Weight 174.60 06/18/2025 Height 66.00 06/18/2025 Oxygen Saturation 98.00 07/05/2025 BSA 1.89 07/05/2025 BMI 28.08 07/05/2025 Height 66.00 07/05/2025 Weight 174.00 07/05/2025 Intravascular Systolic 107 07/05/2025 Intravascular Diastolic 71 07/05/2025 Oxygen Saturation 99.00 07/05/2025 Respiratory Rate 16.00 07/05/2025 Heart Beat 65.00 07/05/2025 Body Temperature 97.90 07/05/2025 Pain Scale 0.00 09/19/2025 Oxygen Saturation 99.00 09/19/2025 Body Temperature 98.60 09/19/2025 Heart Beat 75.00 09/19/2025 Respiratory Rate 16.00 09/19/2025 BSA 1.91 09/19/2025 Pain Scale 0.00 09/19/2025 Weight 179.20 09/19/2025 Height 66.00 09/19/2025 BMI 28.92 09/19/2025 Intravascular Systolic 132 09/19/2025 Intravascular Diastolic 76 Notes Section * Med Onc Follow-up Note <html><head></head><body><div style=text-align:center><span class=clinicalNoteMacroWysiwyg id=[id number] macroname=&quo t;PracticeLetterhead spantype=macro title=#PracticeLetterhead><img src=data:image/png;base64,xUQKKe7VGjsUSYKMMDnHWzALRXLXDBNDSGWDETJrQfT0RMDYJOQTK 2KWqq6y4KGWB AWeEB9CYOOkrxw1UGDUXWUYqFnBmaRRJwBFHG6rPJnzD9DNGXbGOLZGTPfq1N8WxCKK1ccXbUqz7QGxm TjCC6ZzIGacG3ocGqXWr dMlKnWn8S7ZrjZU6apWx7ESavsA7GHcHhGRlepqBB6Q/sG4OtlWd2ilvYA02HnzOpBqH78FP7nN281zx 9Cn7ITpx/HjOr1ZSiOIj DVkzCAk5rVRRvvrfcQuyOsLMr7CHIq3oA0VKCLvgoQRY/2eBGgiQaXa3amQrMd70voOJM2P/Z23UfRbu aSXuBzdx7x+pz8Bwj1zo ka3AqHp8hwv0dE0uyHBd6CjivFFFy0eU5T8WIvpKDD46vSy/hQtZ2hIrrHHB29LLR6BY7VbF8GaqZdyN FFZYcA18pTjXP0dkNNa8 k8Kb/n/lxXHpiq2EaVElxxunwFqbBWSw6nQ+kRHXucZcef5c051wmo7CA1LSTZO6jTTeYN3QQ5vuJBw9 k+J4uTlPIdm72Xi8/TRN 67BVn22Pb2yPMh4VJkTNflKWz1v3rzFVnzzlTIz2f9gADav4zYZv+r4gSatvoVMByaRqweIDcR8PpKZc s54bPcsRrHsM6ZhaM8V2 frekzwEUsN8xLz+lE+/EKUnvNLW1b7DvQI88z6PX3J+LRHGd5uAjKtDJrhoMWFBdJUL4Tq2ljlcUXhOo Qr3hjEIb7pj5/pk4md4Z hdKYGZ2oYkSAtpwcwtdw+8qBUwfKCfYsnEKfpigWyq8Y6g+9zzx0Jpw1iW3PAzd5MAn4zhlLl8P1kogS aWlpRIMIkds/Nx2g9JyK XK5BScu6yTSwaMHqEYh9JTxYb166Zit6GAh760/Z7IIaNoh+VhssHV1wuVTr4c+yrscCRRA3jjlSn0M4 Xq9MkJ7S+eYo4a6NzLNA 44iYqklFmIvQm3yFDom3EIb7filp/O9YPnBIt+ZZcDNkhQPw2KHFsSeuZcFcPoVGm5MprAZIe6YmBx5s OHCRTVBHMIWHgkJiea++ +65GFQt9bv1KbatouoGMFIQMfQZ/G3MH2xjZUVsfRyeTQ3EoalaWc1EZ++f0IytPT80tTSSJ2CdbUBxe iNVw98oI2276N7h1vNrW 5993mxfzuUL2ObiDf8t6oRLW6uV9ai8tVNGmAi/UC8QXpkHFDtVT8+Us+2gpKJSg9riZRqpavVj5sU/4 6obazGdxPY0qK275Zv/M 2GQI6lImwkdnQH2Q4htLMA3jCAa91ez8Fi/pfbIg7lTcBn740oD5MyK7eVZSwMXGLLnnjh1zBCAaDc/E C7ElmiEXh87mNhpY0lMJ BtLbkn1rrZEY6cWIWfcw16oYdIkHNMtXDMpkLBXzxXTr516jNOj6+4xmmV6jkfGpJyc/L7/p+TChQsXL p9PXUFhqkRsqa2rfX9/w xMUWl2fDW3tZxPq+bpVik9BTexCAC1f0TvAJxKLnO0hsuA/+9+gXxV37CBI3wZry10Sm8tGGZyWwsUGK Mkc6jJXS9OwrZwpJcWYQ XRsdO/ew+Tk5JR/1mZCMr9gIhHjDaFqpr2rTsCbsS3ds+WXNHPR+XVtpn/uueeazTEEBEKJ+MuYsWPLj 1BWJNu0nkxteFKQRA1Ux HDhwoWLPwazsSrWrVtXzqKjY+RVpPY9Wan4+QRkmA9ILRaer37aEKUhlq+2g0pKyzvH/LZCKujXbzxmx CKlFHo2uyfUkc123mfia 6/7CaaF44Oij95cyeE2Bm/8cUeAMH/FuVzKUmwFMdXXW4cObWDYOsgGzSrnM/U2rxzW7xSyqd+DT9364 d5ysAYkRkrzf+3dmHid1 uwqyzAdg2rpVc5Thm97x+p0ejqRNIpVgp8aD3hCsqUliQH46b+f6P6fe9xanl515DzGTrubBZv+/DFZu 34epEJWYelRjtclqziV8 ePNSo/qgSJVRw6u0M8jWGAfLudlkHJLFO8EpFspx9+SUo3OKA/899Oac1EdMj7oPyynuM5YWCDckxdgD 9TG41zh0zpINGmCRQMoJ Yc2avYvbLfI8jO1T7tItaO5C5+ZaBx4ZnkdifuUZO8EacUrUxkURxhDsmFNjVKXJULZja83thWEP+WAA w+NyDmkos6l/e2d2bZJP roCxIULFy7+VAf71MUJGEtaIBI5+KVeiBbVtNfxljuhFmZlJKa8lugRKne8/fKw00giywiNC71SqE6cj aysLDNt+oydrq+Mikp95 kmzbrVlj1XGBriBLSqv8ttNqxUi24w74VBc93atUdEq8xlzfqIjv/YmJnL2M85/abTNi6P9ZT/gwoULF y7+ZKwgk051R4fOCi733 RknclzpTfDe47bN6UASDFqX8s+A+YXwK9UmMBMfiNxI5JeM/E0lhsx36aWg5wW1/PeWgzuSlPAREM4z3 TClPTQx13D25qq1d3xpR ShUhXWnJSsn9Z5MqlJEYsOGiXYM41LVlPzwzaRuMklKjMsnFYAQSrvYGpaoDBqAkXFk+oUX/5CDQtTh9 LMSZ2l3+Ptw29vqDTMDe MwvfHm3nsjASTezwWy0AWjwFOiAcHf+qzhnd+mJEc/aGVqX/zGI1oQ6hX8W7dF6QIsH4kx8JPAy3tZ3b wh8R1YAx1yWmmrmM0YaX bHJBQpnWBf7YReOTN7UPhL0I2hnBTfHKomLk/WdlA4u/1p7RxoEkVFij1XMX9sk19rSk64JRIqUtFDZ/ BCyeIg20BzFElUy956ik tk6qGRhhweg2l9XUb3xoPcKBiZ/QJ3cuuMMrNmV2cxD3VB12m1DeELcsSNj2/6LtQtaI4iRfg6uG+xy3 ihLi1sQASBXt1KDNSfc6 DKBtK8kGQgrS0jhsyL+YgBUrkcpfcJNzyC69tk5udQZku1h6UXRV+6fSqxoTT+doIKjRhlBCgW5WwQI6 C1bzvJzrauwfA2QQavob U8QJXRhi/mMK7thWx3sxB0QC7uiYBRMQSgHx52Rsh46Z/D9HjCQalitH1Pxe1kBVgNg5WzGtm9V0EziM xvLo+b0BNWrfXwva/ULl PfrD35mHOOoe6TH5lh/ws3v7QOrQr+ydDPtSSWlDmIdzVKZBBTlX199K2XJiSv9qOykGBnuRXEoR67/1 Zz2r/6eJwrGQx0+sdlS7 N+GUa9Oi1tJ2fj6nSpIqna4vf5T2zQeizie+093Cn8fGlJjkLp7X6QZag82i60c8F4szC4SzN9XpsxXh ydIDxMju5Fd7w0UBLyj4 T6OsVYbxE9PjAxzsmNXA2Bio06g5McoERIUugFyDvjhtqBBRdoNk21Fl1Br7ipMhvbeu+FUnluV0kbgR 2tW/jlYQu7NrJiyZQ2YK T07rgAzoca9gfcw/82foddiZrdprMh8m19naF3HZ2Lap++jnvfKC+BjAtLH7omJD+Amelia++C6XpiQLwXv FxRYau8eOQCMdKI7Bi9c gXoZb4tTciekvkR6huAP/7fhYvaAvEM+gzHIlnNBLm3w7zYwKmy2JNfL54zKCqecdk/BNcJ9estdjUy5 LOvI1mXRg6ULULc9tzr0 lXs1k6s9bzn5J/v3LR4CDVn1tRoqCiT/ntiza4XEuDEXnx5CUgFjSYYVUSMgOnp337+05Uiv2t66INrk r4YXcvOncpJ9tjNmS9CD qHwDVGNM1fPGdG4bPbvdHMU2vlemkAJUZyqIng7187EIni46wLBK09/xvF9QLBTIB1H+iiHKrnbJriw4 TBVdvM7+1kVS6r3Ut0WU VvUgJzSEKo1v5Lxt32Wf4Rq2SBJhauma/nmIt9grj8L+1z+b/r7feEkB0hT8399BQnj4OzitZ1AOOBPq 3i95xc9qS1QbBJJG6CZ/ /cErICW7+6jh8hqQO/xjTYwa1akIvK20e2LPLyLAzzzdRK5miKDPldbq1j/sw2ws+uyK5WHIq+jAt8zq xOlLgiYCjkV4S1LDf/py f9fC1ESGBPNl5pg/M774RGCPut9ZfPnXcptaZ5xI427Whr4AorqZinBNt1/r+DKivcfkpu7vLIfwCV8K KYeSvjuOW+OEuWijrYoV Vdyhf0TrsHkRguTgxnDZgPqPn9VjhxZwUN/AA3NJJmANQXvxcEYoI3r+ygurBXH+6IVZLt3KzJDcwAdw 3nOB0vI3BZTl6IpQFbZp k/eJTR619VKvuhWRI1W1jSiXqOiJTRcEz2G6cjXbB5ZwAIlm7HX/ZK+z1miHuB5EmmmGb22n8pqs4C0O gQGEm7b0/ZkqNNdP48/K ZLdqT2o/w9G8kj3ytfInzO72s2BfgOtVBrt3Th3IngQY3Wt6Um8P9Ra4RMG+H0KHGjhd12ejdDae2RyN qXXv2/TfVH6FJ1wDEQ/G /HY/+wfOu2kaFw0QPcqzfveU5nbO4QLz/wITWndVLv3NBKucl0Na+894p0AYRnfR8L/Cp17eaFz6TwmE JlYCUly+sCcHur8E4wao ZyAyKISAd0nVHENh5fZJEC2oVdJnRCfWYKDHWsrUmQMQAV7YBwPxHzxBREPWc8EhrU0KxwaxsYOfubig RSSyCEgjJiQSafjXgRcs FJwJLShgbPVg0ceBg6yFmK/ehB0AiqJztiGSTtS/O+h4LxZ4Vb2PYPSyvoqagoawpqdtbPikJu4Ni2Ae it8WbSXx6v35Sgk2xwuC STED7KNpgHWxcyvKTEdaA1OEhmWa6Bkpaqz/T3h9NnkK0ZGOQdJyGgXLxYdsdIONegWwRh9UR7lVEK9A PQ1tci3+Ju/UXN0LdMgp L0DfzPEQSvWMCR8Gmgfrqxe0891K5EdGDzow+F+x42txGTCUtTwTPMD2qtjMn4McVGcrHnYULdjAnnXy 3c4rYMHRxT6iwNqGeiIF EEskPZVDgj60D/5wnvKH6yuvdqo0TlQpQUMVZNYOJXlG42XkdthLOjgJQweTHvzoxrlET8KO+MdZQHFM Ozcji6q1s02J+ch3mlw2 rhcbpXyxV0QH630cd2BSS0rc5weY15x1ivB3uD9RjhRGKnVdH+aX/ZI4ukqe7TbwiWJlzbaKG5ctPlV2 39o7rr/YZOUnGwe/mCRG bV8/M143rQA4hQgbHIzgjBMuPt2YEiCj5iPtfDdILWKhUjpIC3feH5dVWnpYoAPddtiZGT39VDEjVn8g u6HBVHJepifO/oYFYcrO ckCCCbeIxY+JDPwxnOZYoiKlGXGzUFcVMXeVre9JpmzLGD8HTYvK0WVEXZh9k0rZi0TsjRCqsvTz2QgF BSPReYORVdW1KnFcCN6D NcUrKRRPmZS45ID1Vm+z54DoU+42GinksPtGP7YkJcDl42VNUhVyy0drvhxpjjY3ZArQhI5OnZWj6Prs 7UfSsWvSgiiWOiutFkJJ IUVCsjLZWBLBGFaMp5YwyHcl1SjUZaEFlYkBJVeDo66ZQDxVSCQ0+D2ph/IE1yrMx6xJSzviJmdNl4xf 1gUYAbjfrw55SNYJ4nM3 oyVXRKf3n/nx9Um3VQRosd+y44w9c6cL/e5RF4Y/Xstv0b7CLwvHgNUhHl1CaTyQkOB0SZa+VLlxmvy5 JlluuDbhazX2Aamx+PO6 r9MdLgZ89ksrRnKs2If0RFkYJR5xrcSeQOYW82shpPD4whSflOuAq/nDSZ3GEwvhmxCNGFXd8YZd2fEV bKNJqdVS25QSWJzRaWR4 nNcchnGGBI993IowqE3QpnnVnV+nAkJGqg63yUSf5sqFnas5TA4apWlw40IPCX2fotOQeFmZf5j+f9wO ClPjG7QXOfevKIF3Z7L0 geHSxoiImApdZa8hp3Y3I8J2cuKZ8IUbqzQVTzYy6QBtW0y/KML93nt3gtQUAwTPbsh+Z0D6yuWumM4Q wE0CZYNDavoYqG9M6xea pnXRdYbWVDECnbhxEB2vYXQTtR/sZYpJpU6AhXmYsbWZn5kfgg+tDqstnn9JY+bIHnxCiCdLI7P7N5nJ GBQ+u2UCD6qATaYeibhF yG1IkCefOUmCVRvfExY021bFw/1Hfs9ysh74o25pdq5jTcWZkONRpSXJhaeDzU3ZhrWzFxb/lpDJus2A Umt6LRpRutGkZRBbHGIJ bNkMVfZujKEHeksLZP5A0MptT5oAPy+DT7M02eTHKU4MlMHsD4V+IYxfKrWtoDXFSTuFZl0QCiY+2Bdx LIqSEHaQY8HmpN9HeRQf Z5hnswRbdKDncqkK1MXkfJahvc/mTpVmgNQgjSO13pSYu1pH4IsF2dSJDGQFHMVSuTYrsrGzXZwdXAro xLkwEYoHVbOU81HC6NCS IFWgomUcQ6dBMX/pXj9/aEitNANkEsFkuDlFlE3DEhDBlr0wAAYerK81/W2aCXnjV9DX0CFq7TQTaT+a Ayy5NwooMvcuJESszjas reNYdPQGdnJVEBJwxjlHlbBP6tZAclLG5mQeKf7UfFWJGcK1kNqc8J9dlSwz544FIdYfun1T0gyphY1v 8JH/zb6BBpUQsMdmZ37Z 6GxkxWiV/nQ3FqYhOl6KRZ8Ch2zFC3RCbFuMcYLJdX/1R5K1TqMHK7TSHRMWSiCHg0qPVDmVebwD1uRQ uUT1ruOU8TyOFxYRAW1Y kEEORCqmfAepxErLrVKhKx1TY0C7kvrhOhcON1MXaMhDucU6qEuuOauaIk/lBAeWIjcF+QSl2CgbvbEB 7wisIoRvSct7D3AS2rJC ilrCGelTJ9UGFw3+pTjdPa4RtmKT9jK3hnWKfiK4hbNm9SebBrtf+5TspghxxHuPoCR4ZhDoC6g89Vtr QG7RCJeZDQqiwzIpTLqU e9wLHv+70sTSWDWQyrY4YioqAm/CoYEB2KODnxE8NGFthBwS8VeV0ZEFwOh0IaATAihyWNHOeQ2W7zXL EVFKTLgmjJpfUBHSc+uI +7Fl96Lvy0pZqrVIpdlO7PuYAhpydFU5jVte3cSmvgqFN/dBoI1ECN5gkKBiMoY6zhSlZgyA5+WhymIc CnvIBIjFm9kLUokpo9KR 3tdlKoCbUHBG0iVTYKOkmMD3eT5dJ/QhMqHL2RvTCON3k0sVL94AsNSvHmC4PsxVcrL7DCxBR0tNhlxJ AMJdw/RFpVZwYBzcD/h3 pOrR2iqkw6la7K7WabSLzy/hJ4umiXZ6ouCJst3iuVSHlkvxvNqt4E86d0IQXcZGmzY1YSbXrulO2PNU JhLbLGpPnAM5rbefLou8 TeBxlrVK4xKFKMD2XbcN15c5KcZagRtADOL5dCbjZXJgAgA1JnMDLcTnxduBVruy5S0/GodaMvsBSotK RLe1H0suNpHsEtYM86OW UoFsrsvZ0uHsFGxZgogivw5BQShap3fCzI9vo6lWcqOwbzZ3aqLkDiRgF6NGY5W9bBxVgbNGFg5ZkVML aIGgSXWGTSFKwlG2chjT aBEqgfgD4wQIF1HMlYA+9SOr7gZ8DfvZNfB6CUA3L80WnpAicrkpyrrbPpRgHOgvUqNMwZuUclGwjSJ1 KM+agpYQOGMHp/77gA/c Wy27K6SLsjA4Ei7GzlH1Qotb5ITPMjlO+kCfwhyQKs7jGlv6kETnYHr3Rx/ls9gfI8khXRX0WyZlNQOR XctbqV0lS+XB65lQeWdn BvyqqganOvKOWIG7YhND1tFrcoM5sq5Oy8GeFapVpfz1O6dN6lZ0zBfhShLacd3mapgsCYd719x/Zsy9 +hxv5xgpqGAUq628ziJi 1SXbAImv919sGsUH2h/TzOZ/fze4rAl+kC7YxCr95Py1eO0wDkoP9Eu8+4P1auecV1Jc3Lxr5yRdT33g vyrAgYNLhkGMJYRAzgaw 86EPNZL7/h/rvATSRlQslckUVPKVvKFMRTuDpIDVKN5pZdGwpRbYLJ7bXV30tDzW9WlowOzPGuaPnWeK rSVRVKILmWbLP18JBza7 G6EUkCwdnzVpOqgoLxd3RG4v37Ngj7EoeSGXO+plMB149lgeP0She3wq+b8pH15BbhkRY5463SmOTiHe nCOozz9a2FAFinuVBt2H uejr3XRpKny98iVmPkW4IwuHE3HiXOEb2xZa/Vk0gkFDc/wH7Ib8idEot7S7aSCymgN5xdXSCs0EYkWo Jb8/RH0qIcKwclSdw9mZ hOTpMfA6+UlkoQa14sG7oCN5dTLho6hH95iW5aS6DHM3M7tWfd1iQMbknHIZ4UgPG69fEqPDNkzqPs3j 6Q8e2FZVLemvIG7IbwjS bCA0914OrUBaLNfI9tWCZ9weCTqeqShoYo6J1lSwUozuu8F24QFGHZvZe8PHZwLaI2QThUabbkUmwKYs xf9lknCdVErh68BCwqUW LXqAneGA+k99NojDamSlHaZcOsikns+dJwwa0EjIvDEU29E/JpWdhkDZtdS1mPaCpESoJYY4TN90XEVc CEUMSqonP1wsUUJEHxDr UUA3RYHOEHjugYIYOpNgx259XHcNORIHVDna/7+ZFk+cOBQRq7fXNLIE3+UQ04+P2pfcQjmmCtdxiX9i U/YLqwVSxfbgfTwgHttU Z90ouHd0Don6JNVnJt7/9kBt7M3hFy31gwHpXa05vdyLxDWcxy11x61a9l8JtKNgfJZjCawPuGxdR4Oe EbkUAxKVoMrW0YWWZXpL EpFkyaAViSFTwyqVOHzOuzXNjCthkBLE3IcOF0OVCujmJAXIhk0dk6i7HeOZrF8yiShoEXDWF0levFKl CcOVbQQsssqhCipb5ade tbLSNUnSnAqywcOiBnZEm61X5B43f6iNpYmdKe9DMmAb8EGYzcJpAheCwvpHH1Xclj+KgkzNzDy9s08L W93vZO5XmDN0PKnsFRK2 zh5PQhhCsNNEqMeA5YgSYBltTHJahEC0FGN5ugFTSiq6bMCIy6xUPux39xfPgp4W3qypaX5BmIULpNIK snfskkOO/5dMwlpoTUA5 UrF8n8mhSpdzNqiyFWwA1cijtiMXoQ5OTtSnuouDUnkdcBuUIveGuZrJUDRHYFZL+Xg08+SCVIwW7QRZ j6fX2Y/do98/CHz5hPRJ OJ7rZhzH2s7K9deO0pVeN6+N3ToEhwFDWCYEp42LSFCp0XqjC1EZeqvgS8PevYNgP6axKCpQ6vmEfw52 LEC+QgrmtPJl24aqb32B E89TOurVpSbceC8gDKaN3hhtojI5JA8I9fIqpYALAqbou4rCTDZNWnY7T8LAFtdTPJo7tSpqKIdQUTal uD2cXcBl+UjfWC9fGqGz jxC0SYIQlxAMLGr3XdYVYSfEKyDEZVthCTaow9Nne/OviXTnAFl9WVDW9E8TDAK7cMR0MIqdHLTb8S3L OJPY0wxmyCJMG6xsCyaK e9Vxcoe9ty1f7s5d3yea5xJte7Rhi+qMv1cd1ABhd7NDe3Hj2AilIav8ppKWIbHy1M/Or4T81In6d2X4 lmhS2oZaCbWTixa9xmrO ICamI0CfmC/r8ekskii0d44mBi5cD6jvLABzpcbOaGAebnIHAbRQPFZ6fN4ZAkbXup0vGrNjqSOuoL7q QSoM9VjM85Vz7JTo9qZO KytOtEBqCe2mDt5PjFO3JEkS9JRdCKbja9ogPmNfUTEom7CvoBwKElGAHStjUQWOUwO0bi7FRHB8bJcr ztBsXrhlFwqi5xy5wT29 Fh5+miRjtsAJr+7ZMANgZtUZPbgE7JSZWp7TkI5NX5WV7vHD4tiQltpsNtzRkJymgKtDhYSg6Ya7edpS TQeNGxaq6EHMYXRWYQkF dagh4hsfCV+JY8nZZ1s4OzpvY3Vs/qqTGJGaniGTNovdXN71wa5zFOXnvV2HkXHn2vZS8EuzmGNswCbE OWHI4POI0iWkSadPXWca 6BlN8bdBoct2060/2Nq4rF9s9KX5C2iKTqTEojScULb2Rb4OI4WUu2dtbVB/pfIss8/UaavVkMNUSAYk HQ99H3VHmrhP/qGeHVSk 1etqcxXpxOU4gnKrT8Y/u/O62TF/I/oMPhX+ck8ng3NsoR2PCvFtMW5pvBLflWGgLvfCLRMpVC6+fEGh sCXH5DSgocvzf9NY8B0x GNSrAfLhfIHHXdS8ay1OVhofAyuPPv1wxyTyI2BUzHfXTTGJdD1G9GskLsyMQAEAAlcW68FLwnWEE9K3 ibtzn9iN/thWhDLDd5Bw PK1eDqrA8l7AMaiMd0DdY0GNB4Yk+GzMqM5yCASDABjbXFVrIDtjW+uqQRj5j0+HGWp2kgmxPihq7af2 skXSZX5MuEuoJYZh5RSU Me4jqbY2EJe/FJrUgRLaR2Pz6L0g3RdXG4OobYPi5zRNy4MXfuk/l302jWyaELJnB4E6q/xQ/vJlAW6q 8oB96S/9o6yFMG5VuK2O nagulS76SCaZY7LnowJQTsgrTJ7ESM6kMcMlouWYTN4HapqzycYI5cZnaAVp4VmxWXz9FVQHphgUc0c/ aKInJsEsRvahtEm62G3H P6vkbFgYxgvKzFF/9z9Q+EE478Ui+9tIB3a+rDv65et5OjTbF7u5d8vOisX5hEnYNw75L3kYzQeMqST5 KtulkhVQCobbhvHDGYQ0 mhIt/SlDvv7fjMUHLUoZu6YTLPRUmFAPMGOfVhcbeLDRPxCPtNtHJSzGGskSxbAxuAylKZLRCPtrq0LH E7N56rpUnAxUkMqfS7Ae BVZK3UzaDQNqYuJvwS5Qi8NrmornjQAZe6roF8KR7lqDZ3HyBC2D3rHbqCAcVMrHxrdwJgwt+KV73OMW EuYLdTfGuRJh43XnZ7EC RYRX5yPBN/vovG0KN0E4h45mYDYPsAqvkZGXxHeZXzzJw2Uj0ATZkt9O/JVH0W5py0J4sJu9aEBbWAfD MDOTWhYFbFIXixxtXZ5L +4F8LSrTyjQUCkyacHXfo3edGMkNstnlhT3j0mkw9J+EY9H5mMDlo8UroVfYgZKelcpD3DnqUMBi0D7S z7Xt9KuoEpkJieY67zlJ wf425qyRW+n68STa6HKINicW+NUJ0Gp46tXPdhXhfIGBU9AngJ0Ib+X1zuhWDf4RwlfbuIWZ2S9Fr5P/ 3enzDics6hQdbj1aLUS5 oCGFHqjhADaVg1QEqPr0Yl1Vk4W19R3ofI9GU+jXYkrOkKO+0ZwhXEhVhYB2EkmsS4mJeXIh/Ap2pS+w Y2YhbdiKHS8J1R5IzBw9 0ddcrkse/u8Fugxan1SV3aDV8BIOx9xThyDGq2AEgR0sNNPU+9avZqtOf4lAaTlABIjilAOWvNNXedph 1HhMeqBe+TVkU/J0Dsay Z23rJf/DKonr7+fLSe+OTWiAyWwdFYux4zGaN/L5l9/mgXmA3gu4j48zWWbIGuPf2T9ZmpnEwwKuefIh iPwuwUtFaXERjW3TRRMo 0d9zhPDkubApetKhfKMNHUsYOk0qlCcP2TiBFxcqGvhZ33PMnJWdY08Tn2mZzMlds6HbDczMI5flTYFr 0e3QZAavEoNmAF/g8LR0 zeTkJSHCSd7432jBnw0GFOzu877OAzdPyIrCEzNbHhDVzNANdNmBYXWtxNuXEny4ZYLEpQRAPxnDPA6r sgULXEkpx9n1Ow6bEYET rRzdT3tLsSfVV62in+2S6a7fMNiEGRM9JCllUqb+a22rM4Fu57zFqEdi15RWe4KbLSnU/FDVx1C5QFg9 NLxNCUZjPmjippD6AM2V hiL6CoY0l05iapB+qs8BlWo9SwEWS5K46G/oIJ0JUMzYiANRBh2Gdrf0WpyL4pprySayi7t1bgmf/NO9 lxsdvRByJEmSxhmte0N9 5Pfpk+Itl9CqZHcRAbIzMMPq/by4yRwgfUjvnAj09BeagXA+GZDkLa6k5vPJ0bIkh2gXbZFCFXvlno/P xkNtVQmvzmy6IVc8lYnb kjPQYZgaZU6eY/2S0zj53yMkq3rV/rZktLjahjr9h7OlrOumUMk7Blt6m1SnahtLIIUPr6ezHFtpeKMC 4B8tE+5Cg7VMa3VCm6dt PTXH+D6uQFg7EqxBZdu/gG/X/PnvmhjozbZR3Oj5B/pbGpnVuBikY0EzlskZin9V1FKsFgB+Q4RhDEkh 3mdpmzB63Kzzl3AXh9zT T9hEvUJu3oAuKzikv0BEw8R+o54KgOzx0fx5j1LCMvlRfGpm+T9y+xVC/B5x/DccjUcdvXDNSI5lv7i0 X7/6HDoqJAAUdnBX/uzD L6vpZKdx29SkdrnJcgamd3Ey6coyfOK9itLdxWoRG7qfUH61vX9qdCbZFTWUlwC9of1a0he0fiuJbOeG NN0Rezou3a75x3eY+SXH 7qi51t2lr7gLMEaU0VoGsI6/w4pwsaYAotClozTZEMJ7egvJ/nv827Ash/tCZYheYJjijNwCV9VKH8ok Q4EyTOABCCCyntmDelf7 mJK2nvqSERu5k3O0Y9a4m9pUB/lCvGt/VXyV6+MhQHdl0UoP91dPPQ3QbCPiXb+GCZGBYVPioqSpbikV WWfFSE7j/NH6AMOWSDPL 2fa10DfwiQo1/XRsvqd1+UhD2YHbTs2akkrAOUZQSedZGlnn1P5DsMNYlyuzzgZL9QOpsTbnYI5gS0lP WoJFJZT+Wyt5P2cASeYr zImmrhkfugfn6XdTH9VqXKCzqk0ln1MRv74EiRx3WX0CNvxg3DH7f2BpN4/ble4a6Ko2f96MY5yVb7H0 XQtj64nGIxbSx7hF5odQ 7vAu0EYDznefKb8TxLDL1h4E65yOjT/qwTJ/75iyZ+gcuve4bWFIyaoJR+ALCe+kTd/ll0WKrlqFAMk8 2QNiMHkDsWf1qtVAHasi 1Y6FKDrNNd3hhJsDJtySsFjuP4RYi9AT73/KD+aZoNZh4lQaO5ieTYX9XzG+0ZJXkYd+9q4c7KzSJLaB ZP360+J3XBdXEewqORwM 4n/9vIEw7u15sfRV+MkWsqgCxcuXLioQcRzYTHJZwq7+dUd+ly0oqVafzRTCk8yf+48RHi3I9r6NR6N5 ocu9xnlNELIWLYG8cOfK RcNPCT3qKWJKd8emyLRkCFZ6wIN57328XuX/r4xqu0vDwlC6qyUBgn78TZF7hr+l/QBM4jowoMlZraZY 7nmyxVCG5KVqDYKTsn3R o6wH8REBozvghTaVtP+Z1GsnN0XPWD80Zfti3sX35umYJep8NmA+Fb9m6G02USa+fCzPvSQQvS8mmO52 9E8DtuJ46TCOOURYHDCW 4ngtavN8oWd8hUQQeyq+7+RYEG+AVk2VWSWoIsq9kqFIs3gzLojdTZM0bHuEOxwnQK12ZNyw6Zg+e0Oq crpK9hePu22DfUAUuKqz 4rDQgs1EQbKbLvLmZrmZxrekuYolfrt3+3ZJz3SZfOm3ISG7mRUUVg2DPyeYDuCL6TXeoyCmiu8PMDDA chicDVBnd1DnpSHvLVfP cUslQhmVoBbD94Obg/njNAUTODXhXCtZXwk8tJCwp5XPBHNDQzWMfXt3UdD4jFaQvB96hjZLNgSm3WHd 1eT014CSU2dLAo7N9afa s2FdCsVuOvVW8tTi8rUd8qMhl2D6RS1EjlRicqWekoP2MzuZrlWpbUAGOS/E68vtHetFJqoKaTlzrj2n Zz5MWVGfh1t81xq0VsDM Uy8bRuzzzzCQ4XgDkhxxRoAuotVEbx1dDMVFABjb0ujQpe5Nj1rWY6OEngYCV32wr3vA/Wdd5UOd1tQE F04N0Lz/9gV36OPwu0kd XJuCPw6put4uneG8nl83GIpS57f8ChQjn6bZO5QAM28suUrSG83pIvrv2IA822wBVd8PtksGH+j1k/Bd kn5+HitjUbwqDgy35enR Fh+vXOt1P5rOUfV4dtPl0daiiT6TufycZuAmFIbv7RL/yoU1gHlQ9h/P/kA1InbePR6SFD6jrN8cc6d1 XehjKi26Guvei37TSZJN 1jHYiyv8mJzrPNrT3k3Yfp4U0UwmnH0SUp/HqCQhVEgIVaJu241zDnfM+uRfo4FPBZQHZwgLFvFpl3pn aWYk9aIntTVf+WwVEBkb dyj6hzzgzx2JE/RtjusBLVqnNnsQb/crfQBXbYfUultBqNoR84mzEQ6WVAT6xkpI0fJZ0yYIU+W5j7am 88Ar8vYVqoKw4zr+Rpm4 +c/fHyQk6f11d/J8vZq80PvITVyP84HA2O0Gj+I7A6E31I2iZyXttcXbn6xr3dpFrZcLKUkRx+YKgVlR 5ipopMlRjGVgcB7N8K9L Se04EfuNqxkbmbRGdx6R/D7X/ZJap0nDHiXU5mbdBfL5z5eDfs+wRYAOTlyTkakY1EE4uyeAV5IIk0a+ 32+O/HGlcl6nzLYlC0EX OzXWocGl8L4FhLmQ3j9QCtFIAhizhGApbbY6esXl6Hp74DEt5JiDLRUofDJXmttrlW4GCeZl8/tIwlFD 5Yf+WNrG5STGwgqvWNfS q3h0o2gN+dt1v+7v+jq3oHm9+tJgf4WCR132sgnrIGJbekCDIHszEj4/H20/ljh9m+Ezcrk4SEzxa3wV iV3Sb/jcck/CJlSNWCB1 M0vfDp3UapDfjMRUFpZYxNd6x7VHgLw429Z72dxsIy8ArOpdmwh9pPt3SaBRPS9ICraYefXPIHJYIhy8 lYbY+c+r+/dX4VkN+l7H Etp//TTLCHzI0aaP36jkoiB01yLH4dIlpt/YGaFm4s48QkhDpG7G8DESj/pde+MAs08T0fhz6TIUIq5/ iwhJXWfjOuHyfajesSMf mzW8GWY4rQROK+qvVkba/pjR6Mz3hA1Q3ZNwTyF8J1RMXiO0Aec47T0M5NjSPy3MfRcRaAP5/bmcPS5J Xr7jvxIurFAkHYVxgCkn xgVrBXE1xudtu57XRhCA/max0j7Qzc8v08SfdLQMO9y2LllDb8viuW/v90tKFE7U3etsLDs30SQkk3XM hntBjTrt8wJ2sWSpmNLz k6A1iN9978PBexJkec858d/rlXdqlfLPqeplFnXatnYx+IIxpOYKMhQnSxblWChcMVCz60YX8Pf++nxJ ko/TGerJ9nQj+xr/d6zx Hv6OFHaZD6kZqn07Fy15s9I3yBL6joXe+SyRalpdwcuLP0u6SR3vFp2gQIxYlvEwK7RPBbEf54QdX2u2 eonv7SJ+Hh/CZSpVmex2 Hb4RxyUmY8aAGSZc7X1puMH0bs3SUY7RYBmyrd/5tb5ctCnpkiVQ46gnG4uQlQNP4m/6/S6l8MzGhzC1 yj3cgvyKi18gcbx+rL06 irpNtJMLTUsC8i0p+q5ksObfnOeau69U8dqb92u+1jb6/xHZsfJCVDtUonQyYDWvsrYH6YuM6UiWzGIa YbDcEm59r7C88QiPoruM I6fca3BoZuZEM1nC4xB0EHGB+egqoGth6P2oPNSuWj37OQjhO+ko4FPA3jV2vXL7zx/L69qk121smrWI l54Mvqlq9231HeFTzw/O JRIvTJceTVHnm8H4j43awcKxCibdtPGhEi8ErePdGjILxMA6w0brJaPgc9AMNBlN7EADn4cyGFf8HbKq iFAIUi8GSlo+ju9663t6 MpDKF6jMPfIKUNsBr0Zw7sIb75LcN/+9h/ki29t1c4vi/wRZRxsLHSuDuq+EgyGXAvj5/vHMvA1XbV4N tEIqE62qmJee92uHAlAR oWzlLeB3G+vDGOc/tBDaBBiVqoXuOPrHhD9CP/gQ07f4j3Caad9mGsst/hwHyqPQh8efUQGScgdWa7cp ZJY/H820/J7B+d7MiVKM KxWmm61ydr0bdsUvVyqAqH3c9WpZfatCoOeO+m6b1YbKU9I5yKrbqKD9b7Se04igcdl7tepGTOG6suEo tFZX+jifsikJjSvq8e54 SVi8KXfio+4R5KKo+3w+Ali5sapq5SYpf8V/a9j1/MNklusunnoJQ1m3bgNMmhPTSJlrcjMucuFJe1Y0 UjXKFN/UJ9/uSSZMTJ+T lfxeIi/3dEm8HExRIgfkOtIzt6tRt8oRr0THTPo3izliCHTClzWjlRrmyZdNuhW0vLkk/K5eKtUs2TDF wXHPs9prhhydPnf0L6AO NX1hqOqCupoQoJOIlTqIeTXmR3hb/teJGPd+9h3rX9yngariv0s1X+m1GK5SLPWiAxtqMAlHm7nhEF92 GaCtHztMP68DOuiADG+/ mtSZ8fmgH80cnQMwNVPKiBjvs2PHiVo1KyXtN2VRnVl2M/AzbFM1xq3I0Ln2sXP4XS7E8vKfOHNxfcVI ppaBPNkeW+IggU6yD4gm 29Zp+lF/xQiB8IPDHRWwaFSd9cc+urguLpGPIyhJ0bmLASc/cDbWFGiytOSKKUNfhnA2L8ojeHTIelxK BiFhJmlVkS/lmzoXIV45 KKxpKmWoY+MtIftyRoEtWAeu1mx7ILCWfcXc0eB4cZQ0MVxnfUTKGlCm3yoPrJdwFF7TF1Upk4jfKLCu ytLx3H9EfdcQv6jSXYSV EksgTZKTuGkAh8luN1OU9bpLbNpDVv2dP+HNHv7siSPsdfY0JkrQbUE8TDS941rTer/dkaRK6mRs9yZM byYjQD2mE5WoXQNy/Sac 0GciDqUA0cbCgIVdkr7i0FzHuEj4EefXfztWfjjUjjj1HDA0Gn5DF/wMhwRQ9O2UIDpBzsuvOYy7312B s76J95XJptzd2o3uEKrb s1euI92G9Fagqkjru3hXXwA9n64hl/gfUrOszk29eU6sJfcB6RTIcFeyI/fx2i79Z4bPPa45ZxL9Gwi5 dZh4qu35mcqCXpqEgDjK SIxseX2lBaj/bj/aH+xs33+rqhNAQK+HwNLCw4YRCn00m06I2oS7tRhSPL3yIv+RXZstJNusFhYRpetF o0y9KcWeKmIAKN9AwSFj eNLiFghxuK7c58VHADCrPrdOx5tJ08x3OEzfkjunWG80zIs4+4VvS5z56tTrLtFDCHSySYmpWRUrRjym Mo2stSrTgcT0DH9SSDD7 iHW9xQsmu83sei3U0Uy2kg88K4b29HU4V48WX0Os9VA15mqn3dXBhyhzq+TLO8P8LO8PJBUj4F21VYGI GoTmaEOnXkViU5kId48g oukzE+6kuKyEJSeGGIO6mZI9ElrW+EzWGqpVc2K9ZCWaItnadOlkyvsKs78f9u6Y8Aq29e3JcQuQX98N kM8nEUhHVqiDxNRoRaTs PpLCscIrwIQKsFDq54+LoowSwrIUpP8jtQpyOzNjXiHpwqTRulGxenj+b5m34C89BJKrwSnobbkNYatq slNxxbr+86hjRrK6NQcd W/QkxhpYNcm7uD7roucXryQZ8mqZZ7fP/Oxfj5D+4JcyvpC7ghwLaOiB+zKzCCgzysprGaoYbHH4eI0o iKwl2ai98NlX16BQBBra ZpCzt38LPD2hqDvmZVL2nX62he6/ASk3zLWkHew/EuitgUIYFY4+uxpqFhGA63K6kEFa8gk7J+sHd/ep 5nTJiNrfIEzKyL2VreFq RWacXUFRdwnhtJxLcNt0kl9AZr29K+IlvZuf06Yn6RzH13yk4INcl3pBIgMKTxNBy0IngrjSx7SmlOhe Hi015+rz/JLgiekPZrAd XwBxCRDSRitjA2zBf3/uXgTsCKqBo+KrOOUJHoIb2JQyhRFkkp5+2QxJPaDmxSJwogHnTMhiVWGxB36l klkS5Bgb6sZJHjTzRFgW ccpdtkTStnyFXQUKxhyq/nKa3MvLmxHv/Jrb3cV762xHf9UEoffEaGwGaufb3K91zeXXOD4hwQwSRKuB QG1+iyzQVYfs+uqDiM/V oStECoO2BOYyTXUBj74h59imRmIdqBkaLSRq2TsbN8wLw9Dvy96ivpFqCqIKXEl40r1qKSsoi2NvpOBE AT9uiNKriW7siMbxzrRN FFQTGePYWq949jjIFXAZTN6+5Kird7kBSdOZMVpugwr8X1n60tyaXpuuiuato0COVpENmPKRlNdRfAxA v3H1Kx4qsA6o8mRDazsF OMRSEfqJTzcWa1DEY1uwZYJ10hlYQec9+chm1F2k9RPdnGak5O9mVs+mNKybeGN8rgJI/4t4o19gEX1K c5+4eVba717cn0YQZ5Dp dW0tVmq/rSFsu+Cw/Uzc0/mii+uf8tWeh0YConQRin4Ut5q9T0EFNRdoQRztVbq/OsuGvfg9vLtOMORA S18WgBfZ2ZFx/3cRJnRC inI21/LfqJ+LrR/M+Vp536/Oqai7oRNjdipFScsoPm7klQsvi+B4Sbxxd1tnZ9iysRR28ln8dHOJjnVO e3/Pmj1glwLXI25xgwo0 kFH1tMPYSseIldJ+MSCJqgTJuFmzcpEXTwVEzBdifo2DD4XhI7MsO7t6F2M5pe2ucEuWDcauIOCXon+k HFz77Y/W3QE9If4fUwM4 8YV3zkt8H4YgwEQFW+F1j2Fv2/vBNqO8osfQwV00xm45kqhAQwctFPfvvI9vZdiChnG7vfA7UO55v6xs hDjFJ4ltoJ/+cXrmWTHV ix9Z2N+fHN8fRcBLl4MGJ/9eFqBGULdAkdZ97uCLPNyoRSaxrAFt0r3bx18fqVODzKMZxVqhKyL/u5ir gkFS62P1Vc6UyO/p5VN1 LPizkXf6BcMfuF/eo7L7WIS9KrXtc4UkNw+TwM2AalgLwNfxr10QU9aKs79qSprRMXNrlDsDTcpN8UbH ZLXixvEApO0cOi+/vLzc v4DMfroWIApmVjadXVsPSwOxxnt7t2KMNs06boQz04relRMkjWfEntyS0FDvuXTLKVTQJFeGhwlhLBM7 cPo3Iur107whPr6GGgIn aZ+J4xP4fckML5S66q8pWOLWP5wIrlio6ZbaU2kEHxunf2qUwFmUzo+RzrI7HabfK4kw3hFLV+rnjLIJ /Jose+j7RZvMSoMCUbPB4 ZIRfE+HoZHCUbDATzlr4YBy0edJ1U//j7lFATAisu1Hv2I8k1IxynPzE95K+38nogJr4uE3kCTUUmOzf taieWNnaIMGFT2cg6D+z QSH6J+KpVq3zkyjhP91Uxi6SyuDO/KVpG/5YTXA1qk4p3c3aRdC42oBh9xagr4pR8DDaXyXyCLuAxGrs pLWsaJSPPwv2Od0fE7Yl rxrUnJ2mQmmYQG1CX02lwGvMKJvQXpmdtxC9ttcM5J/ka2j/BtGCz5NKQXXfOpH2NEyejAsynv6l8sk4 Fvjj5irhGmTy1Ao/dryI Mn0c0gJul+3pIUIi33Q/X10kl1X/7gyqKXRpFZJk9OywEZHJ1LgHwdIGBR1lKJPW64uxU2adAGb9fwC/ tHKMnj18SWLuGZQ09Rlu xdmXKp6lKqM4pIbbjK0Nw39a826WwnF6IZIJKMNpiPZHDJZh0mkbaDAsFF+Eywon1RCxvYa89eUHz6TM tBF97NGF6DsY0ivh336W x07r4StY+cxu9v5Efh4vdrVNtXwy1fU1Mmfdj+/7fdfXzSTcAWEjgpPNcPep6Ds4nzMGugBNmsFhI/oO PnMB4BfziuC+GC5KuMlE Z0od0GYARybun6o5lpRSjSJO6Vh113jBS3K2N0I6edVWkJrvqqMa+dHyaiHADMqRGaqsDpJy3+alos4z JCqk4iL1QUJWjvBcK4bL sZXBbnbDyf47oZoX/Jcy3ueqffWsjg6q0d6YC3Fb7/U+u9mP+Tnmlt49kG8tJFtg5Q8mKsSR1bNbYT+p /zOcYNGYAruk29mKl7kj R2CgEyiWp7E18b7HytCWyKPtU6p07nrQhgbWu9+q/duJH7S7ZARjOi5xgC9qDtStLrHxoFEmpxq+ucss c8Xfy/tD0/qNWplmDWSv u9iskrjaLE7I0ei5NwI6U7UfH3GKg3+mDD/WQMN3XWMPkfexI/8KN2D5mGGoFH432eia/9rUp1YiSVdi 8Ik80pzjWunlYbLg9I3C hYI7tlE0s4XCcm979iEPjYINAZDF1kRz0zXpoSbtKixH8vGq2ZXDwLjllruO8xmfXMqlyzbfaAn03YF3 zE7B4xduwxOBZJ3gdAKn FK+igGQLqSGdIYg7xnPeBggrFplW5GD2onIqIvxJEeVJMkVAivXZGNrkDDCwD8LTVN7uXXuTdA+H2DV/ +DQaF4HVRUXUWyCVlCaSoUT></span>
</div>
<strong>Patient Name</strong>: <span class=clinicalNoteMacroWysiwyg id=[id number] macronam e=PatientName spantype=macro title=#PatientName>ISAIAH JIMÉNEZ</span>
<strong>MRN</strong>: <span class=clinicalNoteMacroWysiwyg id=[id number] macroname=PatientMRN spantype=macro title=#PatientMRN>[id number]</span>
<strong>Date Of </strong>: <span class=clinicalNoteMacroWysiwyg id=[id number] macroname=PatientDateOfBirth spantype=macro title=#PatientDate OfBirth>1985</span>
<strong>Today's Provider: & nbsp;</strong><span class=clinicalNoteMacroWysiwyg id=[id number] macroname=MyName spantype=macro title=#MyName>[facility] [facility] [place]</span>
<strong>Date of Service: </strong><span class=clinicalNoteMacroWysiwyg id=[id number] macronam e=EffectiveDate spantype=macro title=#EffectiveDate> 5</span>
<strong>Attending Physician: </strong><span class=clinicalNoteMacroWysiwyg id=[id number] macroname=A ttendingPhysician spantype=macro title=#AttendingPhysician>Yanni (Medical Oncology)</span>
<strong>Referring Provider:</strong> <span class=clinicalNoteMacroWysiwyg id=[id number] macroname=&quo t;ReferringPhysician spantype=macro title=#ReferringPhysician>Kimberli Enamorado MD (Endocrinology)</span>

<div style="text- align:center><span style=font-size:14px><strong>HEMATOLOGY/ MEDICAL ONCOLOGY FOLLOW UP VISIT</strong></span>
</div><div>

<span class=clinicalNoteSectionVisible id=[id number] internalbreaksection=false originalname=Reason for visit recognizec oncepts=true spantype=section suppressempty=false>Reason for Visit</span>
<ol> <li>Iron deficiency anemia: Secondary to blood loss.
</li> <li>Menorrhagia
</li></ol>
<span class=clinicalNoteSectionVisible id=[id number] in ternalbreaksection=false originalname=Impression recognizeconcepts=true spantype=section suppressempty=false>Assessment</span>
<ol> <li>Iron deficiency anemia
</li> <li>Menorrhagia
<ol> <li>Please see hematologic chronology below:
</li> <li>08/21/2024: Labs show iron deficiency again hemoglobin was 11.1 ferritin was low patient was symptomatic.
</li> <li>08/28/2024 patient had IV iron.
</li> <li>Patient now returns for planned follow-up. Patient reported that overall she is feeling much better after IV iron she feels that she has more energy, She is able to function better.
</li> </ol> </li> <li>Menorrhagia
<ol> <li>Patient continues to have heavy menstrual bleed ing she is working with gynecology and trying to schedule an ablation procedure.
</li> <li>Patient reported that she has not had the ablation procedure she is reluctant to have the procedure as one of her friends who had the same procedure had complications. She continues to have heavy menstrual bleeding.
</li> <li>Patient reported that she continues to have heavy menstrual bleeding she has menstrual periods which are regular but last approximately 7 days first 3 to 4 days are heavy bleeding when she is going through double pads frequently. She is now talking to her auto transmission specialist about partial hysterectomy however she has not scheduled any procedure as does not have time off from work.
</li> </ol> </li> <li>Intolerance to oral iron.
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
</li> </ol> </li></ol>
<span class=clinicalNoteSectionVisible id=[id number] internalbreaksection=false originalname=Recommendation/Plan recognizeconcepts=true spantype=section suppressempty=false> Plan</span>
<ol> <li>Review of patient's labs shows that her hemoglobin is now normal at 13.4 but her iron studies showed that patient is still has iron deficiency her ferritin was 10 iron saturation was 18 this is likely due to ongoing Menstrual blood loss.
</li> <li>Patient has been unable to take oral iron due to GI side effects including constipation and diarrhea.
</li> <li>I recommended that we continue with IV iron periodically will give another dose of IV iron today we will plan a follow-up in 3 months we will do labs ahead of time and schedule a IV iron tentatively hopefully once patient has hysterectomy her iron deficiency will be corrected. </li> <li>I encouraged her to continue to work with gynecology. </li> <li>Patient is unable to tolerate oral iron due to GI symptoms.</li> <li>I gave her information sheet about iron rich foods and encouraged her to include some iron rich food daily in her diet.
</li> <li>Also advised her to take Vitron- C As much she can tolerate</li></ol>
<span style=font-size:12px><span style=font-family:Star,Helvetica,sans-serif></span></span>
<span class=cl inicalNoteSectionVisible id=[id number] internalbreaksection=fa lse originalname=Med Onc Advanced Care Planning recognizeconcepts=true spantype=section suppressempty=false>Advanced Care Planning</span>
Not discussed at this visit.
<span class=clinicalNoteSectionVisible" id=[id number] internalbreaksection=false originalname=&quot ;Pain Plan This Visit recognizeconcepts=true spantype=section suppress empty=false>Pain Scale on Today's Visit</span>
<span class=&quo t;clinicalNoteMacroWysiwyg id=[id number] macroname=PatientPainSc theo parameters=LookBackDays:0,ValueIfNull:Not recorded on today spantype=mac ro title=#PatientPainScale(LookBackDays:0,ValueIfNull:Not recorded on today's visit)>0</span>
<span class=clinicalNoteSectionVisible id=sec [id number] internalbreaksection=false originalname=Pain Plan Thi s Visit recognizeconcepts=true spantype=section suppressempty=false>Pain Plan on Today's Visit</span>
<span class=clinicalNoteMacroWysiwyg id=[id number] macroname=PatientPainCarePlan pa rameters=LookBackDays:0,ShowComments:Yes,ValueIfNull:No pain plan indicated for today spantype=macro title=#PatientPainCarePlan(LookBackDays:0,ShowComments:Yes,ValueIfNull:No pain plan indicated for today's visit)>No pain plan indicated for today's visi t</span>
<span class=clinicalNoteSectionVisible id=[id number] internalbreaksection=false originalname=Smoking Status re cognizeconcepts=true spantype=section suppressempty=false>Smoking Status</span>
<span class=clinicalNotPremoWysiwyg id=macro [id number] macroname=PatientSmokingStatus parameters=ValueIfNull:Not recorded spantype=macro title=#PatientSmokingStatus(ValueIfNull:Not recorded )>Smoking Tobacco : Never smoker; Smokeless Tobacco : Never used smokeless tobacco; Vaping: Never vaped</span>
<hr><span class=clinicalNoteSectionVisibleid=[id number] internalbreaksection=false originalname=Depression recognizeconcepts=true spantype=section suppressempty=false>Depression Screening Tool Status</span>
<span class=clinicalNotMer[facility] HospitalmattioWysiwyg id=[id number] macroname=DepressionStatus p arameters=ValueIfNull:Not screened on today spantype=macro title=#Depr essionStatus(ValueIfNull:Not screened on today's visit.)> Screening Date: 09/19/2025; Plan: Patient declined treatment</span>

<span class=clinicalNot eSectionVisible id=[id number] internalbreaksection=false originalname=History of Present Illness recognizeconcepts=true spantype=&qu ot;section suppressempty=false>History of Present Illness</span>
<span style=font-size:12px><span style=font-family:Star,[place],sans-serif><ol> <li>Patient reported that she has been anemic for a while, she reported symptoms of fatigue, not been able to go through her day without exhaustion. Patient feels that the symptoms have been going on for a long time but got worse in last 6 months.
</li> <li>Patient denies seeing any blood in her stools she has not never had a colonoscopy.
</li> <li>Patient denies any history of GI bypass surgery. For last 2 years she has been taking phentermine and for last 6 months Wegovy to lose weight she has lost about 60 pounds in weight.
</li> <li>She denies any restrictions to her diet.
</li> <li>Patient reported longstanding history of kirill rhagia. Her menstural periods are long up to 7 days, and she has heavy bleeding. She has consulted with auto transmission specialist in the past, however unable to tolerate oral contraceptive pills IUD, due to side effects such as weight gain. Patient was scheduled for a uterine ablation at 1 time however it wascanceled as she became COVID-positive and never rescheduled. She is not interested in hysterectomy.
</li> <li>Patient has 7 kids, youngest 1was 2-1/2 years old. 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 Patient tried to take vitamins during her however she could not tolerate oral iron due to abdominal pain cramps constipation. </li> <li><strong>01/09/2024 patient had 1 infusion of IV iron: 1000 mg of ferric Derisomaltose. </strong>
</li> <li>02/23/2024 hemoglobin improved to 12.4 : Patient reported significant improvement in her symptoms.
</li> <li>08/21/2024 hemoglobin dropped again to 11.1. Patient is again experiencing fatigue hair loss.
</li> <li>08/28/2024 patient had IV iron infusion symptomatic benefit.
</li> <li>03/19/2025 iron down to ferritin of 3.8 iron saturation 4% hemoglobin 10 IV iron repeated.
</li> <li>06/18/2025 iron ordered again hemoglobin is 12 iron saturation 13% ferritin 6
</li> <li>09/19/2025 hemoglobin 13.4, Ferritin is 10 iron saturation 18% IV iron repeated
</li></ol></span></span>
<span class=clinicalNoteSectionVisible id=[id number]" internalbreaksection=false originalname=Interval History recognizeconc epts=true spantype=section suppressempty=false>Interval Histo ry</span>
{ }
<span class=clinicalNoteSectionVisible id=&quot ;[id number] internalbreaksection=false originalname=Review of Systems recognizeconcepts=true spantype=section suppressempty=fa lse>Review of Systems</span>
Remaining 14 point comprehensive review of syst ems within normal limits. NCCN Distress Thermometer and Problem List were collected and documented in the patient chart. Remarkable symptoms and concerns were discussed with the patient. Any additional follow-up is indicated in the plan.
<span class=clinicalNoteSectionVisible id=[id number] internalbreaksection=falseoriginalname=Medical History recognizeconcepts=true spantype=section" suppressempty=false>Past Medical and Surgical History</span>
<ol> <li>Menorrhagia
</li> <li>Hair loss
</li> <li>Migraines
</li> <li>GERD
</li> <li>IPMN
</li></ol>
<span style=font- size:12px><span style=font-family:Star,Helvetica,sans- serif></span></span>
<span class=clinicalNoteSectionVisible id=[id number] internalbreaksection=false originalname=Medications recognizeconcepts=true spantype=section suppressempty=false>Current Medications</span>
<span c lass=clinicalNoteMacroWysiwyg id=[id number] macroname=Med icationsTable spantype=macro title=#MedicationsTable><table border=1 style=width:100%> <tbody> <tr> <td align=left" colspan=2>Medication List</td> </tr> <tr> <th align=left>Name</th> <th align=left>Date</th> </tr> <tr> <td width=60%>Vitamin D3 (Cholecalciferol Oral)</td> <td width=40% >02/23/2024</td> </tr> <tr> <td width=60%>Minoxidil Oral</td> <td width=40%>12/21/2023</td> </tr> <tr> <td width=60%>Vitron-C (Iron-Vitamin C)</td> <td width=40%>09/19/2025</td> </tr> <tr> <td width=60%>Finasteride Oral (Proscar)</td> <td width=40%>03/19/2025</td> </tr> <tr> <td width=&quo t;60%>Phentermine Oral</td> <td width=40%>12/21/2023</td> </tr> <tr> <td width=60%>Wegovy (Semaglutide (weight loss) Subcutaneous Pen Injector)</td> <td width=40%>12/21/2023</td> </tr> <tr> <td width=60%>Valacyclovir Oral</td> <td width=40%>12/21/2023</td> </tr> </tbody></table></span>
<span class=clinicalNoteSectionVisible id=[id number] internalbreaksection="false originalname=Allergies recognizeconcepts=true spantype=section suppressempty=false>Allergies</span>
<span class=clinicalNoteMacroWysiwyg id=[id number] macroname=Allergies parameters=ValueIfNull:No allergies recorded. spantype=macro title=#Allergies(ValueIfNull:No allergies recorded.)>Compazine, citalopram, morphine, sumatriptan and topiramate</span>
<span class=clinicalNoteSectionVisible id=s [id number] internalbreaksection=false originalname=Family Histo ry recognizeconcepts=true spantype=section suppressempty=false&q uot;>Family History</span>
{ }

<span style=font-size:12px><span style=font-family:Star,Helvetica,sans-serif></span></span>
<span class=clinicalNoteSectionVisible id=[id number] internalbreaksection=false originalname=Social History recognize concepts=true spantype=section suppressempty=false>Social His tory</span>
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

<span style=font-size:12px><span style=font-family:Star,Helvetica,sans-serif></span></span><span class=clinicalNoteSectionVisible id=[id number] internalbreaksection=false originalname=Vital Signs and Pain Scale recognizeconcepts=true spantype=section suppressempty=false">Vital Signs</span>
<span class=clinicalNoteMacroWysiwyg id=&q uot;macro_[id number] macroname=PatientVitalSigns parameters=LookBackD ays:1,ValueIfNull:Not recorded on visit spantype=macro title=#PatientVitalSi gns(LookBackDays:1,ValueIfNull:Not recorded on visit)>Blood pressure: 132/76, Pulse: 75, Temperature: 98.6 F, Respirations: 16, O2 sat: 99%, Pain Scale: 0, Height: 66 in, Weight: 179.2 lb, BSA: 1.91, BMI: 28.92 kg/m2</span>
<span class=clinicalNoteMacroWysiwygid=[id number] macroname=Immunizations spantype=macro title=#Immunizations>Covid-19 vaccine ([employer]) (12/22/2023), Not given other reason; Flu vaccine - Adult (08/2024), Not given other reason; Flu vaccine - Adult (12/22/2023), Not given other reason</span>
<span class=clinicalNoteSectionVisible id= [id number] internalbreaksection=false originalname=Performance S tatus recognizeconcepts=true spantype=section suppressempty=fals e>Performance Status ECOG or Karnofsky</span>
ECOG: <span class=cli PorfirioeMacroWysiwyg id=[id number] macroname=ECOGStatus p arameters=ValueIfNull:Not recorded spantype=macro title=#ECOGStatus(Va lueIfNull:Not recorded)>1 Symptoms, but ambulatory. Restricted in physically strenuous activity, but ambulatory and able to carry out work of a light or sedentary nature (e.g., light housework, office work). (Date: 08/21/2024)</span>
Karnofsky: <span class=clinicalNoteMacroWysiwyg id=[id number] macroname=KarnofskyStatus par ameters=ValueIfNull:Not recorded spantype=macro title=#KarnofskyMaribel (ValueIfNull:Not recorded)>Not recorded</span>

<span class=&quo t;clinicalNoteSectionVisible id=[id number] internalbreaksection="false originalname=Physical Exam recognizeconcepts=true spantype="section suppressempty=false>Physical Exam</span>
Pleasant 40-year-old lady appears comfortable no acute distress
<span class=clinicalNoteSectionVisible id=[id number] internalbreaksection=false orig inalname=Genetics/Molecular/Biomarkers recognizeconcepts=true spantype=&quot ;section suppressempty=false>Genetics/Molecular/Biomarkers</span>
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
<span class=clinicalNoteSectionInvisible id=[id number] internalbrea ksection=false originalname=Additional Labs, Imaging and Other Studies recog nizeconcepts=true spantype=section suppressempty=true>Additional Labs, Imaging, and Other Studies</span>

<span class=clinicalNo teSectionVisible id=[id number] internalbreaksection=false&quot ; originalname=Laboratory Results recognizeconcepts=true spantype=section suppressempty=false>Lab Results</span>
<span class= clinicalNoteMacroWysiwyg id=[id number] macroname=RecentLabResult sTable parameters=OptionalFlowsheetCategory:CBC,Label:CBC spantype=macro&quo t; title=#RecentLabResultsTable(OptionalFlowsheetCategory:CBC,Label:CBC)>CBC<tabl e border=1 style=width:100%> <tbody> <tr> <th align=left>Lab Results</th> <td>09/12/2025</td> <td>06/11/2025</td><td>03/11/2025</td> <td>10/09/2024</td> <td>08/21/2024</td> <td>02/23/2024</td> </tr> <tr> <th align=left> &n bsp;CBC</th> <td>
</td> <td>
</td> <td>
</td> <td>
</td> <td>
</td> <td>
</td> </tr> <tr> <td> WBC x 10^ 3/uL</td> <td>8.6</td> <td>6.3</td> <td>6.2</td> <td>
</td> <td>6.2</td> <td>8.1</td> </tr> <tr> <td> RBC x 10^6/uL</td> <td>4.78</td> <td>4.57</td> <td>4.21</td> <td>
</td> <td>4.29</td> <td>4.34</td> </tr> <tr> <td> NRBC % /100 wbc</td> <td>0.0</td> <td>0.0</td> <td>0.0</td> <td>
</td> <td>0.0</td> <td>0.0</td> </tr> <tr> <td> HGB g/dL</td> <td>13.7</td> <td>12.4</td> <td>10.0 (L)</td> <td>
</td> <td>11.1 (L)</td> <td>12.4</td> </tr> <tr> <td> HCT %</td> <td>42.4</td> <td>39.4</td> <td>34.2 (L)</td> <td>
</td> <td>36.1</td> <td>38.7</td> </tr> <tr> <td> MCV fL</td> <td>88.7</td> <td>86.2</td> <td>81.2</td> <td>
</td> <td>84.1</td> <td>89.2</td> </tr> <tr> <td&g t; MCH pg</td> <td>28.7</td> <td>27.1</td> <td>23.8 (L)</td> <td>
</td> <td>25.9 (L)</td> <td>28.6</td> </tr> <tr> <td> MCHC g/dL</td> <td>32.3</td> <td>31.5</td> <td>29.2 (L)</td> <td>
</td> <td>30.7</td> <td>32.0</td> </tr> <tr> <td> RDW %</td> <td>13.20</td> <td>14.90</td> <td>13.30</td> <td>
</td> <td>14.10</td> <td>14.70</td> </tr> <tr> <td> PLT x 10^3/uL</td> <td>289</td> <td>299</td> &l t;td>340</td> <td>
</td> <td>321</td> <td>256</td> </tr> <tr> <td> MPV fL</td> <td>8.5 (L)</td> <td>8.8 (L)</td> <td>8.4 (L)</td> <td>
</td> <td>8.4 (L)</td> <td>8.9 (L)</td> </tr> <tr> &l t;td> Scott %</td> <td>68.1</td> <td>59.1</td> <td>60.9</td> <td>
</td> <td>60.3</td> <td>63.7</td> </tr> <tr> <td> LY %</td> <td>22.5</td> <td>29.5</td> <td>28.3</td> <td>
</td> <td>28.2</td> <td>23.2</td> </tr> <tr> <td> MO %</td> <td>7.8</td> <td>8.5</td> <td>8.5</td> <td>
</td> <td>8.8</td> <td>8.6</td> </tr> <tr> <td> EO %</td> <td>0.9</td> <td>1.9</td> <td>1.4</td> <td>
</td> <td>1.6</td> <td>3.8</td> </tr> <tr> &lt ;td> IG %</td> <td>0.2</td> <td>0.2</td> <td>0.3</td> <td>
</td> <td>0.5</td> <td>0.2</td> </tr> <tr> <td> Scott #(ANC) x 10^3/uL</td> <td>5.8</td> <td>3.7</td> <td>3.8</td> <td>
</td> <td>3.8</td> <td>5.2</td> </tr> <tr> <td> BA %</td> <td>0.5</td> <td>0.8</td> <td>0.6</td> <td>
</td> <td>0.6</td> <td>0.5</td> </tr> <tr> <td> & nbsp;MO # x 10^3/uL</td> <td>0.7</td> <td>0.5</td> <td>0.5</td> <td>
</td> <td>0.6</td> <td>0.7</td> </tr> <tr> <td> EO # x 10^3/uL</td> <td>0.1</td> <td>0.1</td> <td>0.1</td> <td>
</td> <td>0.1</td> <td>0.3</td> </tr> <tr> <td> BA # x 10^3/uL</td> <td>0.0</td> <td>0.1</td> <td>0.0</td> <td>
</td> <td>0.0</td> <td>0.0</td&g t; </tr> <tr> <td> IG # x 10^3/uL</td> <td>0.02</td> <td>0.01</td> <td>0.02</td> <td>
</td> <td>0.03</td> <td>0.02</td> </tr> <tr> <td> LY # x 10^3/uL</td> <td>1.9</td> <td>1 .9</td> <td>1.8</td> <td>
</td> <td>1.8</td> <td>1.9</td> </tr> </tbody></table></span>
<span class=clinicalNoteMacroWysiwyg id=[id number] macroname=RecentLabResultsTable parameters=OptionalFlowsheetCategory:Chemistries,Label:Chemistries sp antype=macro title=#RecentLabResultsTable(OptionalFlowsheetCategory:Chemistries,La bel:Chemistries)>Chemistries<table border=1 style=width:100%> <tbody> <tr> <th align=left>Lab Results</th> <td>09/12/2025</td> <td>06/11/2025</td> <td>03/11/2025</td> <td>10/09/2024</td> <td>08/21/2024</td> <td>02/23/2024</td> </tr> <tr> <th align=left> Chemistries</th> <td>
</td> <td>
</td> <td>
</td> <td>
</td> <td>
</td> <td>
</td> </tr> <tr> <td> Glucose mg/dL</td> <td>72 (L)</td> <td>63 (L)</td> <td>
</td> <td>
</td> <td>
</td> <td>
</td> </tr> <tr> <td> BUN mg/dL</td> <td>10.0</td> <td>10.0</td> <td>
</td> <td>
</td> <td>
</td> <td>
</td> </tr> <tr> <td> Creatinine mg/dL</td> <td>0.70</td> <td>0.70</td> <td>
</td> <td>
</td> <td>
</td> <td>
</td> </tr> <tr> <td> Sodium mmol/L</td> <td>140</td> <td>140</td> <td>
</td> <td>
</td> <td>
</td> <td>
</td> </tr> <tr> <td> Potassium mmol/L</td> <td>3.8</td> <td>3.7</td> <td>
</td> <td>
</td> <td>
</td> <td>
</td> </tr> <tr> <td> Chloride mmol/L</td> <td>107&lt ;/td> <td>107</td> <td>
</td> <td>
</td><td>
</td> <td>
</td> </tr> <tr> <td> CO2 mmol/L</td> <td>27</td> <td>28&lt ;/td> <td>
</td> <td>
</td> <td>
</td> <td>
</td> </tr> <tr> <td> Calcium mg/dL</td> <td>9.2</td> <td>8.9</td> <td>
</td> <td>
</td> <td>
</td> <td>
</td> </tr> <tr> <td> Albumin g/dL</td> <td>4.4</td> <td>4.0</td> <td>
</td> <td>
</td> <td>
</td> <td>
</td> </tr> <tr> <td> Total protein g/dL</td> <td>7.1</td> <td>6.7</td> <td>
</td> <td>
</td> <td>
</td> <td>
</td> </tr> <tr> <td> Bilirubin, total mg/dL</td> <td>0.3</td> <td>0.5</td> <td>
</td> <td>
</td> <td>
</td> <td>
</td> </tr> <tr> <td> Alkaline phosphatase U/L</td> <td>54</td> <td>55</td> <td>
</td> <td>
</td> <td>
</td> <td>
</td> </tr> <tr> <td> AST/SGOT U/L</td> <td>27</td> <td>29</td> <td>
</td> <td>
</td> <td>
</td> <td>
</td> </tr> <tr> <td> ALT/SGPT U/L</td> <td>17</td> <td>25</td> <td>
</td> <td>
</td> <td>
</td> <td>
</td> </tr> <tr> <td> GFR estimate mL/min/1.73m2</td> <td>112.0</td> <td>112.2</td> <td>
</td> <td>
</td> <td>
</td> <td>
</td> </tr> </tbody></table></span>
<span class= clinicalNoteMacroWysiwyg id=[id number] macroname=RecentLabResult sTable parameters=OptionalFlowsheetCategory:Tumor Markers,Label:Tumor Markers spantype=macro title=#RecentLabResultsTable(OptionalFlowsheetCategory:Tumor Markers,Label:Tumor Markers)></span>
<span class=clinicalNoteMacroWysiwyg" id=[id number] macroname=RecentLabResultsTable parameters=&quo t;OptionalFlowsheetCategory:Immunochemistries spantype=macro title=#RecentLa bResultsTable(OptionalFlowsheetCategory:Immunochemistries)> &l t;/span>
<span class=clinicalNoteMacroWysiwyg id=[id number] macroname=RecentLabResultsTable parameters=OptionalFlowsheetCategory:An emiaLabs spantype=macro title=#RecentLabResultsTable(OptionalFlowsheetCatego ry:AnemiaLabs)><table border=1 style=width:100%> <tbody> <tr> <th align=left>Lab Results</th> <td>09/12/2025</td> <td>06/11/2025</td> <td>03/11/2025</td> <td>10/09/2024</td> <td>08/21/2024</td> <td>02/23/2024</td> </tr> <tr> <th align="left> Anemia Labs</th> <td>
</td> <td>
</td> <td>
</td> <td>
</td> <td&g t;
</td> <td>
</td> </tr> <tr> <td> Iron ug/dL</td> <td>63</td> <td>49</td> <td>16 (L)</td> <td>
</td> <td>94</td> <td>60</td> </tr> <tr> <td> TIBC ug/dL</td> <td>353</td> <td>368</td> <td>410</td> <td>
</td> <td>372</td> <td>285</td> </tr> <tr> <td> Ferritin ng/mL</td> <td>10.70</td> <td>6.42</td> <td>3.88 (L)</td> <td>
</td> <td>5.37 (L)</td> <td>15.60</td> </tr> <tr> <td> Unbound iron capacity ug/dL</td> <td>290</td> <td>319</td> <td>394</td> <td>
</td> <td>278</td> <td>225</td> </tr> <tr> <td> Iron, % saturation %</td> <td>18 (L)</td> <td>13 (L)</td> <td>4 (L)</td> <td>
</td> <td>25</td> <td>21</td> </tr> <tr> <td> Reticulocyte count %</td> <td>
</td> <td>
</td> <td>
</td> <td>
</td> <td>
</td> <td>1.73 (H)</td> </tr> <tr> <td> Reticulocyte, absolute x 10^6/mL</td> <td>
</td> <td>
</td> <td>
</td> <td>
</td> <td>
</td> <td>0.08</td> </tr> <tr> <td> Immature reticulocyte fraction, %</td><td>
</td> <td>
</td> <td>
</td> <td>
</td> <td>
</td> <td>10.70</td> </tr> <tr> <td> Reticulocyte cellular hemoglobin pg </td> <td>
</td> <td>
</td> <td>
</td> <td>
</td> <td>
</td> <td>32.9</td> </tr> </tbody></table></span>
<span class=clinicalNoteSectionVisible id=[id number] internalbreaksection=falseoriginalname=Surveys/Consents/Other Discussions recognizeconcepts=true spantype=section suppressempty=false>Surveys/Consents/Other Discussions</sp an>

<hr>
<strong>KE[facility]</strong>
<span class=clinicalNoteMacrBernardo id=macro_[id number]" macroname=LocationPhoneNumber parameters=Label:Phone: spantype=macro title=#LocationPhoneNumber(Label:Phone: )> </span>&l t;br><span class=clinicalNoteMacroWysiwyg id=[id number] mac roname=LocationFaxNumber parameters=Label:Fax: spantype=macro t itle=#LocationFaxNumber(Label:Fax: )> </span>

CC: <span class=clinicalNoteMacroWysiwyg id=[id number] macr oname=NoteRecipients spantype=macro title=#NoteRecipients>FAX
Kimberli Enamorado MD (Referring)
John Avalos MD</span>&lt ;br>
<div style=text-align:center>
</div></div>

<div><span class=eSignSignature>Electronically signed by Wiliam CHOUDHURY 09/19/2025 18:22 CDT</span></div></body></html> * Med Onc Follow-up Note <html><head></head><body><div style=text-align:center><span class=clinicalNoteMacroWysiwyg id=[id number] macroname=&quo t;PracticeLetterhead spantype=macro title=#PracticeLetterhead><img src=data:image/png;base64,bRXPJz3PBwoOFUGDYHxOQqMQJVSZDNWjMHYDGPW8Qu+UAAAACXBIW SYZAG6XZIJTj CLDXw1sWFTPhgqQTQIQEMz2P04hQeNsl1WgGaoclMHIMWBVCK25nFYbd5K3MBFnY8pyPCGyv78bXJmeK MDWYM9pFINKOGtmAGmaG GF6MePiezpbOVLfQk0lGPu8nG7xgGI2PGC6mAlyycs0ZPBjTR1rRPxupzqnXVIeBiLsdTy6bDE4jt3cQ VOqUpQuPT0PYVWwdxBlO y6rPLYtDQDsIlnxRUA3IWR4KGW8AYUpVDRpWiF6KxKnPFVdMeMhMzYxZIAwGRVtQZBqOtW9ksSrKuXCV sO5zXusmpycYKR1Yyd4h VO2Qa29g3uovwAzk7DqVgF7YPzaZRKcPhLjxlRiCZP3qtKyhC8rkzDsSrE6yoTyQtDfz8QanUF3fP6kH JIyRfdePi12nE0hZbU2a Jzkand8bWY4Wtw3kGY4Ng4efj4wUU9oKZ3ux47vmDSgDbZdWD9qPChiqT3iLwDbKBMqeCIlZy2zkMNju Y0qdnbsAKMqCSbvqGAgo ORwYR3pCzJwuC3loeI3sLhpbC6ooD7sOPPxlOCoJj7kreFuJEMxToRiC81fL0Opw9Yho3dlzV4dOwCvI uN8oXqrcwr3gNIRLD7xb VE0zDhkJ57oHoFho9XgKqVjaY63UHZjIS3tF60bVjMxhN9ujgJ8e5PKdvF3Gbm8lIK2Pe0iae6uBC4bE C9xs78urYIoWhFaSN0kG CgnOC8AKPQpfUVmJBH9NT81NdVxgY2yKqOqSTV0r6QQa19uYKLWCK3xMJSPvU83u7Axk1ThVkYtPGAyQ TFzbV68r6SiLAFzoH2rH oRuBUQ9XRYzhCB4MnMjBxFwRHUtEppXLFE2Xjk6WwLzYAR2IHYkWZpmfIqMb3PfBsvCAEIyQLNjUFFvV ARvKFT1QGAfNeBnOCR5Y tLzKhX1tDC0VLK6ADCpxTPUVDPxAAQyOYCxNVZtCZP9EARaXkUiDDO3QgGiAuYjHiexu2RbJTO0LqseY XtjQ1KvSzXbcVadqF2qs W0oDiOfaF1rVI4jHN6vXpAmoD5nXF04AB1zmTGoO4MNIQ8egC2tDggoVVv9FHMiZwLaJK0lPIFtIVX2J gxvEMr7GO32IaR4QQBtE oMwEZKeSNficG5WCbXxX5ItYD10YQO1RytzpS2rcOF9XOOhRuKqUAOhWsllIe57LZC5KAn0OdwbVGHoO hUdV9C9VSCbMuL7hUYBI NrWsagwfY4erQWhW9IeCD25CYX7MboahS8dbUA2ZVDcPnZtCBLeFpxlHf27AHJ6YKp7MqxxPKIfHxPwT 9A2PNAvWl0lKEFyr4Iiu 8bsvJpAd4L6hYEqkICxZ9BhxW0gnk0mCVDfVzmQXSn+AMlpJTO4dSd+fA2jWuBhVIl6GqB5P1D4DZYmC YCaOOO6WUVrPlcRJST9G tTBDcQlPYxzanPwZcufGsD0A2LdIofPBXf+PCcuoGagrO0ulD2kYlOcC3XwRI93YG9aOAW5d5GjFnC8k R0dWJ70NRbxvM6kzG6mG HJkZjpTZXE+OUhtNNZ6pTgss8YXbuN6CGO7pB2mPXEcrjDtsAEhTiXbpIW3kDdbzgZ1CU5bLNkTMDQ0e JMjqPmtOsjqWzCyWVR6N JG8ZSKxKMXqOT81BKf2BWIxUTohROCuYDA8KjXnn7EYniX6k7cerh0jQrXfTi0nMF3gX2QiHPiuGUgyM Z3aHpogRREhu0IVnpS1x 66jnHxwkoIBA8NpxW8aPBIsSuQbBIwucB8avK5hCOAqKzLxPG1kE4ybmD3qpMkgTs4dWR5wSBS9E3JfR dI8J5yfcQ3HKcgmm7Bwv nk+TSesluUcIdVvc5JqnVX1iR5hCvM7W0ZpDmlSAHF+VEorsXi7nOOzSRQeQcA2C7jjUDJkKQOjBP3dR SJyIj8+caX3PQSEWuOPN EFUeJztnXVgFEcXwN/K+nM2kFU2EUUatnMNEl/iGZTvnQqlDJEqZmjlik5LFJaaGDDaKUhfO6ht/HZ3v y6UatvnNrNBxwF/uz92d 97Izu6+lEiwRjIzSZEvPMqgWPWgaHa9YCaECeNjmRGtOMfBkQHRsFDlNPazSRjgGRZBpjBXU6KYlSowc fPwOBIJtXZbVWjzeZ2qK mD+U7RIgVe/oopYoRuR8wKYywEXc3kODL9hnb24ITchaZXJd/jtyC1uTT0FLaOs3sqEEs4w6dr9XFYyS MAMVePRowIqtyVLsp8d/ oDlOfXaOKuQWVX0kElC74h4q+xzfJpKZ6C8GMk3JqVQ8sOImh7XZZBzCXQVhDfWqCrC4btMErqnQad6n GAOPkic6xKXXKtnXb6C3 4NCAy28P0NCnbmFfw8z68jiUrRatpQM5jWMFAPVZi3OFrAdTVjAgFPNi+LEEumob7+Z+lMCAK1aYGbNT xyJg5Ll+zJkL0Oub6IMq 3zd+8ef/WsK8GmFiUSsquFMVURwJJDAVDJhohl10/oLf/5BkMSEiRPH//ZGhFRaQ1yBSgntzqn+9bpXj +6msTytFk0r95K1PsNU1 9BVEZYBsUwuPIi2hTvNXRa1ejW4nF71kd5RqnC6V1MCX/YfkRkh05//E60fBDnSxX9U7usZxjEkrbbHN ANix4yrup51qgwYEn247 qS/v/7kCFycpkRAVSsfKJZaHE9Roh5dGFp4dhVsoXhdmr4upqEztS+/v7//aMJifc2wTX+48+pEr9okv 0YMott2wIvnG+zetnvJn EaNm/ybaEeoQlZOzqqnAtjPFDSma4yXkP8KKyR9/WDYUb1E+d8V83ICTgWsFbxWj0LNd9sjinQ4AkMWC TAYDAYDQRAkSRIAHMdxC Ps3WFeTAtdPFl5XP6gEP10hZZZq8pVGj/diuVRxNhrfxU1YNos4iUBtneh+rcsT1DuVDQgIEKJiOAomD W5VHlHSVbKWGtkfG5DPq If2n+3EMf9+pLsH3gdcu04ogIYokn2Zu1Xu7KlPzukXh8Ra66U/jsIiLd0hREpiDCovmVm0/4jamm0Em Ffg7lZx+3LhlgKCT9rpN pOkKYNWm/+UUztMWX4cuq85/+R6Z8rSqn2HEJA3NMyjGsAmi03Dp5F7ueALHbJQnof1+SbTJr55ixwjF hpyJeKROUFcPkv4Pvp7r buXSIVg/s6xkJZ6X8odn6511sGYYjuIONsGEe9mdsm6gg57bbJPmNucHDDrNHETW6UlY6bX1LxviGpLu JpfSBZNnFVKRiJvQ7hnq 6FToVbg9mZ3wVLsQoq9ytDk2WX1h473rmVT7XbprSt6oCm01SG6cz64t+Sa7XMeq/9+OpM77lo38m112 a1Jz9GlvRXsy6/fth1/e Rs3iI52cMldVJqQUkxlWMfL+/h8cCe6hybvo8uQptYENmhelyfQuLtF5ufwvlF5SLlurRLGRMv3mVPwB mIKfitehPXMvXJx7YzKO +GP+o4e6+ce5fDTOavjfVnXlcX4oL9aCu5Tsqe71nhRsvrFg9cN1Hf7tiYa8I9sJf6kpFnQlhGz7M72s efAG8VGUHPVpvrqIZEm9 XzLeFUoW+7SxYsFicXHx/r3qFdp9YanXRmsNk4xCKd73jyF8vmYratLDpsJLxlk17JlqxfxZMRoHqemK L4HlASyATy924TJTCvdk 01J4YTePxP4liRLc3g2l2Ku9wh5VnsZ+W+AFRYGIYS+GTmqnI+tw1wnhC2Jkq+X5JmWGrEP6OMQfzqMd W8LToN5oXuEx4+nt5u9Q 8mfkS7qh2OYsGZhCfjf515lV+hOkmfgEsTZbkR41RqtLb7lDUfmlWoO+a+Ql6gBUJAtIek1wgeDnyUuE w378P8KuGErZWgxdZDjg s3leH6Cbm4fRKzSn1rPZWYFGjFAmUo7GVTaFuKKnAh560+HRz9+WUFAWy5sG5MQ4tl9UqHlSORh3Z9A4 35OXroS4Q71I5GMYFYMH fTWTpI70XOVC26ejoqN3otXisuCnEFmJdMsw67fph3abhkUmA01YfA7ZdsYqn2Kvv4zIoIy7g5ru6gdU N0oZSX79rgBb1xBCtc8M uzqteKfFOY/SNCYGFs72Enpz82wm07BcRWMwV4aKIaX3djpI/4gvV4/q60mIJMMXv2Rh5DzU+9Iq1FH/ 7I09KNmDDSm9maRARfca 783r1/nj1i/IPLQMVgRtVaxZYMCgCTt4EIxl1Nhl91YiK/R/MLBCgsDqSmpDMPUq1+tMYse9Nm91pVyM fwAdkRESdx8j9sQ+/Vfu BpJfuo4t5b4RvHKwBcmPugRTk2DKYLtFh3s6II8/ijvo97wH4+2CCBLEqU9nPTwgZJCc4bKPln2uzRCB bKUyQ3q4NH0UNDtCJH04 VYzDTzZcpzYlZRNIYbvZj49Dv9+/tNu7cPVxai8jheliGKyqx0vb86HpU5GTw1+5Wlx274KCzUbszyTM KFGI+P4EVANUSArOqQSc IyUTScj2ZTMc7fMAhc0p5l8jEe6cQczAHXttLXBtin6kn28TlwpOu1xro2yajh5bVmhNEtzfDwkNukQi z9xfWD+vWCFhQGKokiSt HdwBACTHzFB/VGoRhDX6pc+ayXJJ4rtbk4GZwpwqGwMalJHZAkpPEnU8SJj5zFB6vUGqcQrpfhC1CMQV ARAAAGERqPRaNSqPGWeU xwGMTI8yaUeUKiAtXINngwKrmTH5h1W1na+4ViHRRd7mIBsurZk6NUmuAzub0nBkSTyQxhMkM/wRYMVF cg6QgwoWbnTpNFri5DlK 75y+vBrx8riLc7eXEoptG5Quv4s7nOaDzwFXFh8SpqhoVoQycnaggSgCiEcStKCLCbipsg7lhm26auT4 4veIDOXF2Usgz7YqSbiB +4/fEsdFbim8Vr1b62gGxcz0goNEMIZoXWKzQdKUPSEuSLd/KQ3qCa1nlZMCvvcHUWCi4ySWJ5JRGqrY 0+pOv7z2N8ck9Jegktvp 8PGje/dcUgmnMLxo7wPDfkejZzft/AIKl/Bf+J1bDVnEPVvVZXW76q5Z5SwmJ04r/y5e+R3Up0sZ+rnI 67bebDVAG6e1l161DlQj uAWQWIPaiyeNaJl8hoa7rj16TSoz1nhIapEFiS9kWGZ6ewVVUKVkCLsubqTuJyWC05+vhzLpqalxyckb t2y5fD+/S/jXpbxKtOle /tmFt8uZBng8UwjM0zZiqebwRrGMIwm1ub5SZ4/FD7XQ3iR6/CDRCkHzOTTTIt5TCBZ864uYJs19pBgN 5bCfcuWdDtXrsFXunW/U z36/Q6mlw58371/f/ZsyJmzi+tDF381ycx67AbUXg4b9HrQdXkXjsqM8KshFzh/hnN1NSCXRN+io8t6+ uSd9lCahGzdxyoP4spfq 12R4vja6F2++lsAE9vX3sP3SXRNAT2RzNG4nx6OGnATjVZRpKoD/ewVRgbrH5f+kp8JSIi36DPuybWnS gpcHZymTZuBEGIRQghl5 MpNCDjlj9tlS7p5DausIk9xy/cr+/j65GDFYVp/GcdNpAWl97/GBZ0tK5K2laHKWdp439BTYerCV5aCN MMvMGCrO67EmKZmdC4tL vu5i+wxbddb7buGe0zW5bLD9b3QbkjNST4AyxqlCJjQMks5uFfch3JdzeeD1+mmvpUQdjRUKlL2Krl88 tCl8+1se9Ql4SGf4kAJZ C1GS6oqqe5pCH3TWJBQVlPhCAQSortBSyBcUAWsbQkrVm9etBvUsw30czupSUiBMYWAkUFoOizDSG6VC /xeCAtdo7LJl5eTkk8M2 XdpQux6Z36i8p6uE/KqUDRObnZuVpz1SHi35XmWyvvLtUed8ur7h5Lw9faDwPsVEyhKha2pGpk5dMQ7T p944cpJvm60hGsDcSw0r ZkvFjxI/OVy/536ty99qOolakqrUg5DtqsJS8yo992EmPkyGVG/B6CmPBTmqxb4jm6pucGLX/62fauLm 0bY01mWr/0NRtbAwuxFC ftQ611xARmNL4wHGnqrn9C2H1BQYK6gRu5Bo5xF7Zj5rmC490cKh1oIXVTebm2wHVaJmeBsxB+UWzdvD a6sTEf23osh+wdE2xeT7 w9dKlseC3g1EICADEOo/iZkdCECOhTMy0a8h6ahoLmZl2cnFDLpe4A+1k9Yi0MBWU6Mcttze6CheTrd7 SiyFUAC+85R9VAVyIWqQ rtbGYXeMgpBVvyK4CdZc7scQCF9ljRbLVMYTwRutN+QuTacw1mEksxNlecpa+1MzcrSPGy6Armd+NbV0 BbRe8mUiRLL/wsEZPyrV 3ze1OJ0ibdSkD2GUG7nJpJi4N//GDQ8hrEOHkwpypldaZsrp9YcFzyMHFZgYYVbfJcNdZCOQUq5LqYfo Kgh93U2dV7FFwWFb2lWy d+9wbTyNcV0yHrpyvCiE7uIsZRB2YyIOaKlGpJBd7ZOx7Pd7zdakxsXPPwUQ6Qk9DRgJUjEUol8Y1MJE 01Obt2+K2mRzMV1Et9kE /rxjOHPJ3he101yFKe1oBnWyBceSCTVGoBP9Zz9Sl5+QwL3VthSd9XReAKe03b3O4ua6gi35b8SYp074 9OPEfdna3NR2hsJph+Xv 3u6ObO26wP+P2BnYBqXQYW9LcdkdsKcvkNyF+4VBFopkFvGAJXcfo1+Kmd9IQAYOXh5PoZ30a/3BK39d ClGFpkKxtY02YYYihBy3 tiwqiIVYMyOzf6D9hWOn60Xo6BIVqSeEeT9ANSauS4rgSpK2Lio3WMhEaowaL0h3rThB+sal6KwczC14 ddEAiaRg5ffFUqnwAA4+ 3pd+1gTgPohb72WYPtekdAWDn6HnLgJU9aKZEIjy89eoGEuVk4PIGMSoZELI/Gcwc1YRntOHjLcYbz5s e/NlEOHffi9tj1Yk2Xls X2WIKnznAZ/4YRVjoVDQg85cITgRvE4sPrgs+GiqXGXrX0vaGF30bfM2+gf8LQnfcMwgBpXEcI7o2iKh pOCsn3ey/b0QN+NzmMZQ iyR/BIxYxXm2RQqzacGlWHhWoqD0U2yeh47shKKqt2DivkBqft9SlQHqvu5O4WZXh7Bw729G/3BkNS5s +8+lbJAHY3aWDgADrhU2 12PvgDR86soyuFybHKIiZcFMgk3t5vNNyMUZ/zz78VHwgtKv50h9z8wyIHssSrcKAElQvEy2zTkGNmWT hEiaLEILZyvCLvuvHbJr tdqXzMPaIDNefvXobFDwjDtm5pmEvtr2Tyjhh2lO32hoIah6vOO8iFwbTgGJt1m1BtDI4YSJmMgScRFS x7zzNwIaML3Kn7ZzRKOz 6S0oaU6t6ilfVfd8u/9Lmb5HpKb9TeMSRLFltKEDV5n+kLgCKfiiiqBicnXFnNwvE5Obqk7nMGgRvccU GrYZZSrWIURf4JQiMdU3 83rMEKsK1AzW1etNQ6FeTU+BRRQmF1xHacdcqpHZkKbSfxJEAPjf3zghXfNBXgFmhKzpo5aTWCUC5X8T q38K2AI/yz6q/D6xWtyy CL0IkqkCmsN4uP6tJtRdsDF34g5/6E1h2U7kfAPCLWpcD6M0oR+KqZGEIYmVOQyIEUvEQcir5ZUXsvQ9 7ARItd24hVBlXqnGtUTT EgBkgX7mh6cxqrR0O9zeltwEATVBWWLbrD9Pj2XZuUPHV9KWQWYDCquJB9EbUbIcdY1ICb2X3ob1wLwc jjSSSl9TDYKlRmQPJHMt 1Va2Sbe6VkOcclYtLBykgEwhp2tTOwyWeoz3t5lHioTTEnv1Bv8WhZJPC989NcQU38IJjpHba9BttjNd zNS+fPyLONZcpWK+axgh fFFJYtVP6MqTPQTFjDqiIswuiBD76QLP6O8635EX7m6NL/j62++qypFMn8yNXmijxRhrfcPjZXDSStNg vWFL6b79Ccxfv9eAyoCU Mrmn9DacGe1H22WUsOCLvAYGxndi2DAjNrWCSBvU7uimzxqjcSM52tdL3gXOR3azyDsFAkbahM3M/YQY zTwvGAp7NaDKr8Fw4FOl 01rHb01KbTjcmNO+ed+H5iX42o8h/T03OH3nV7Nm5JHVU/PkTuWcas/Mac8l58W403mWS+wdw1rrHIfU t2unnpjuSBSWdljzJRfJ v8pMB8dMqGoMqppT0u56vp3zocXLaNiGsyEOamC4RmqFURe+YVcPfyExdZBBJwGw7IZ5K9vv11KVLsdM lvL26NTNPfVgOqRZU6Gv CaCZW13o73YQVLdzxW04Bh8z0gs2P3TQRJueIPG/uyL9KsoM3eGVQWwwcxtWmGRzdr2DOX6DLYfDpSn2 xPwCP42y+Pp+BCoDA5xl HIKzxATz5QdOA9iYMX/KV5ZWg6Pu9JXsht1DAsXUfRnGCXj2aypeH/7anqUa8VtULVPldwf7z0ts99tu ClwPOtfOUx551TL3+Tl9 VAQinltBUJx+qhPYGy4S2NY5+3z8zTr3VJCvV3NRAQ2fGTx9qQQa16vIl/OrXT4OGPycWXWJJJj1wpLV ey8NmxnAHATXW2EmNJr/ Zq1rdl/JIFQbPRjtVpPUJZmr7//0jRXBc4BVwOz5c52U2GlWg9x1mfBxnIAWwpt/ho97VW3nkhqjG5Xw PJVHf9BU587foCwk52Yo VrhH1M9tEX+B7mhpKxQVPW/KyOkvimyaqcgCn6KJfNfgDAcKjDytZ04w0sUdXned7JDllTvfZzbo1Sac 7Of/9QpA0rPPOUILVWVI NA/CAfXDqBDk8VAgA3mhH4BSqewgkYuyzsLIoGYCvVaZGG9+Lko3Xi95f49N05QlI2SeOu+nf4TiEmyD i2wat5vU6h3hULZ5hcGW Qnyw915b+P9xsRnL1e/Fglxs7zVnAnrqh9sWAl7hSoZWY2gMCSXHNSQSxM1c8GqGBZez5RPb6krIfOGY 6UEsPayHyycUJ90Qt04T vMI6t7AhsKnGz/3R3t1cyWzeHk9c0kqJPXsH357tLi1UiLa08qGabhriDkR20bGs5q/aJsRwdaow9Lg2 z6zu2f9WgRxHhxeEGYjI 9ecRG7My11SRdnGAjFj3JX449J3g/WY4KQtD8xegmuK1Xj/517EXWrPDe2Sffh4gH4C2fNQKrs6rx2/R 5oDAEgwuPVBaeP7bzqdB qlQpsQf0Qym3dn4bttxcEunlSdDE2jDDODWuwH9zBaFrvmw111d08fjOBV0/qxGueDRMC3OWwDKLSZvb 8PbwuPj1Z4QLggeq5z56 +VQPX200iIebUdAOIFqCyCjnUZkTMk8mdT3063EVVjvV4aa5cTd6C7aa6EshLZiF0ZMDPuDjSuaaKcfo EisTktiMlJGjxu/88/dP r6+KA49wFWRE2137ikdwHtGjxW38+fx5DsdGEyxAfjxu5spfmEz0QZ1G2BxaHDWGB4cv7KdpXMRfZ+q6 AxzcpmTxrIN6891IEh6s KLK7eBfb1UDvtbpi7MfZFh95QWwcKNyqW18iXa25qOv8fiHSHzYB8AQTUNpkwkMxKyc/ylkqBCFOn4D6 N+Nn/I13VVhzhfzvSLtx XJPj4Ry6HcgingKCLIcWB80/MYN3WSW5tRJXhGOx0pPAEZ08Fkp3Z778EShc0d8fG4btUAaJsCgNXn2z y+iRlBcRurMuzbwc9VrH megkUlpK8l7ds14Sir3wlhhA7p9nLVxrcZYM8GFkyY56YilCelQTcAYlX3ws3aUtQn6DGBtfxF2gPTBp VBNqVPzFtXJ7Hkv1V05d 9uyrsbYqubavNya3Kjrg9Lt8hnGNAsUQdfELg6jAtQEUQLg4z7gym6BNAc+KQwyismaF0RvGPGaX5RbN RA3fhEV12mP+z5fyuHCh boh3+KUsXOgIoObmnjvD82uX6e/mEmpknh9XCoG3eKe4QX7q5L50rsrvZHeO75GY3/CWsCUBrDCwkBiQ gJBkpxYqtFpxBWr+1YOd Yg5HNnt1rhfoEeZuvDXrlS1QyRSIjJbK3xKb0pXY40nA7N78/sxjr//ZJSVaxEhzcwYFptko0mFPZEuK 5HgfwRJkkKx+W2Wb3qqQ WR0mZt+0/M2yhxjZI0dZqVzcYmrgPA+OX1HEYOPplGbYmePewfoGBIQw3ELcX6tEnOVWFYg1Yn9fC1lX pVcVWFKGKywMJCTkwMAR tSac5G9NINKRVaJz+is27agLvqKPiccLbhn3bJOEeQ5/FcHvBar0qYElpC5gxSWa7J9Ar8OgZN13v8JW ENAzAOZFFSc9idm3MCAg azRaDQaGIM+8ecUrpOQUIjc4Uu4cIig41oSnEGQQbDYRDEIR3Vszx8nMAlm8SA1TzNsulOnPlMQvX2zI SHQOMwVFm6ManMZhstWY IdX9vrPAeVTP2PL52my0obxMJRRcAaj2Yv2Wya+unuUch3K6ON/MdZmtcqo7E2wPPWUOiN4CtMl7l34/ dKmlEyML7LKoLvTZeTSU kNpLIVtVAdbNmtQidhxYdCOmNt3HcSvzCGE7Fuzg6wcXWs8s4VOz6CB+DeVRLleUbJOARu8A+0hjmEQQ lznmbRrsEPpPo6TMKTHL PRCIKpafQmymfA1byupIGCN8AHNPyQWwlMGtPueuln7LuzGvrFjedzpDHiZlwIkBH8w2863o3sbwQeaH qrrMhUkywBBACAAApycu ZOUSIsfbHWcZZDrNck0V+anWWaAho8GbmBzUY87Z/cgnYaoXkfFckijfpc1/RLGiBbkAdtEL30sJkyzh V80+JUcgP8FZeExYp1gK O22P6clmxvElzDpIjGcrv35Q/sPPMtxIwB4nSWUb7oJTtXnJKZ/Nq4ioyw9jd1wzPAnf4kTGnvgUMVVa RGZJcoLkITd2QEp4MHkj w3IVegES9FeEBSgT0o0FXk8VWw9ffp0MwD8ELejITCaPgB8hPIxgh8eykym4App4naFIFizG+tHCATGp xHqHAWIpcCyYNHGAQRCA QrdQ8entyEpYYzCcVYrsLpKNLNwGGztaFd8C7iPoyNAbdQ5pyppktZIarsr52cPw4gRlMUKUGQicTA9N 9qMPtrmiMGGOfak8QcCY FrSBkpMltqs3x8ZSYA3FUx3q5zEb2XrCrP25kmK/XkFBwsIGYE7iHRV2sxq4DuHfi9VMaXQaEyRZVLWN VGjrsTGjrkdqmscDGbru vPmJZ1XrTkCX9yPW0uChWUadM2qua8g15lQ5+/SosAq+pEzb1vRA69Z/dIvJUePnkHm0T1EcgJa7DPnh iY4/NohOuCOmCEjTJ2ax YKUXBH4AzB/S31g/t8prWCOwBgUug0t3Prv1Da4cdFFjJxJBBkJzfSn3zTDG9zdgEIOHB13GNXFFazEQ 5RQaHZdzsp0/Ui6K0i4w 3+kMmtH6mzzYt12caC1rQkRs3Q7w8yFNIXmwgo7qANjl97+FaPXAfu++QdYQMQmFUlSl2G29FoG+nWLr z95XWD+6tK7oVfPc+U9e /VEAqEg+aF712i1w7dXMpUkcq5xNiKlTOV/V2naMd4usJAf53FUaABfv9WBrqFcAjsCtTBcUGCl6Lwal xAmDO9jesCY7hkWLvpd9 jp3rXGeRw96CDII1urCqWN+OiA20kqvs9Ny8TO2Jvu/1uMd0usWrRgEOYys1pzVWSScFD/Nf0KaADvZa CCqnm2eGyMphjmu1dLpP CWBWS9DJlh6CeXQnTf02ob7g8j20ZVUDdkxVgzPMFtCjTiI1gl15+aju30BruL2eTNYMbouehvHDlTmU /9pe/zgyz4naE13p16jI HkeMLOGZUhCZrKy5mtOIDGbPxpUADua+1HqxdpVdQhfIwh53zRTF6E3RQfVNZKph3Ew/xla1wOVJLOYR TSxZqMUP04eRR96+UT88 kxAzhgb7K2mWLiqztZvoZ1aMedex2hQwb8pDnuUxQ7+43Rsu+jQ72ELesspxwd6Zaj1/p4pLvqALliLX xERw54WAfWtv+Z+mF34W DfEENFCXh4QTV0KLwPs+76RCxvBkw4XcRZMIOFDGKc3MBQVNlgdVaCW8yZZOTEPOpV//kGiu77xVXmEl of4RJ/ZvWCUsjq6VO0pO I1aQ+v9jKFqhm5ECkjszylCLpXXiEXfi7ObfzqdbGIV3LW0tM/uCxPikFCkqRykbBKsqtkQyWxArwPT1 EKCAKEYOEbyIso2/Iz8Q Fufw1B8loDXTlZHdxVzu7M/g3dz1al7et5WBpRgESboWSA4rb8RlvBQHzZRtbx7dCfWr/FSyBgArLAwF kQ/frz0l1+jb65EgyFFZ lTKBPxqvxTFoomAXRHeQoLYsRAwXt1DYFr1MkzfyfWATJNOzg5PUmABdMXQBRDJAaSKvMZ2Cwtowgfpm jHwIRUcDobKS9gK1y8V2 BMUaYc2xHINQtQBgUALNFhV+Oy9Dvnjo29lI3/7zqK5V2CVF9MHxDmGLva/OvLmRSHdpnPkIC1rMFUCb RU3f4afdLtIej15vtjpY qnW8cqsdJTpVOPEptmTnRTX7HJImYlM1QNj9ea5tiJadrwJnBep5LVaomrSRSSAbpilAZzIg2phjpa40 uvY6Vc0+tPFlBqwwsIUi KJkVI8Bs4rG6Mn8HLzp7Og6UVt5KMtUzfXgg81I3wHjDOzSND8o8fYE4DgdiSyHPGEmM+fJI26M/mHix WnUZVRPWLfGApQWVl1XQ LRyaEKnnHR9iBrGZjKlyKDsxEini/++/FeDt3/y9/MYF0/QaYqIQAsAIdfdq+vEKqHu3UM99z9FocPxs GKp6uFrMRlSckEwT9YMV T17Wu/pgf7lol9oYEe8wAQJNPwZBPDqT8Oqv3zwr9xhcWn4Xnte5hVp3LhSXmUvhFQ1bBJB5eNORcWn8 +TV4msWDENdfqZuVOAHo QboIgeOPKCJoiVaFDC9lM1yQkg5soh4x3r+Saj18NMxP9RTheQD6f+OumgpD2sneaAmkVOvnLQUI6+rr RRodHTjJFLCYKCVCvGrZ 8We24D3QNBNnt3+q0ewcnEApTJbScy9ayOP7s+i1+t/ZnD2ko8/WDNLVOwJYUbXQUoMXKdTmp7XSCscg UDQqHHjeQsW+wcoI8GjQ h6ssDD/ADhi0Qy8+1akiAULBd26lgMLRDgNRdsVLVjaBT/vbAmQg51D/T6pyrU7j7w8/oXg3Lnfls7O0 nhMEWItP623hm6qYANXA wPE/IWzxZNJEJuJeJrWkOGVQLfkUYQZGyWNNGdSvwFQHASBbpq9ISCUgKHQXCmaFNUCPsSVFOfQrtISS BIMili1MQDFvGPWCEbjZ RFMPaRVERuLyuIHMVDFhiq14X7/Y/4wZZdy1+tDWhZWpCibQkjSP2Ut75CcV6qnxdDwt6EkFCyKk1Nk3 ra20ca7+/aLK7SZbSupG ITrgQ1FQHVF5YU1eMuYPtshoNXWCNPld8bQ+c/d7E02dcar2qd8X6yYmeoyAH2OEEPGms8NoNh0tb0oY Zx8MdMbj965bdBDuvt1b KdgXf4wyju7szqycQof4bSja6kF3+qEXx36uALf8uQuwSxrpIj3eAfXTTO0t9l0wEm93XAUSe+tsm705 d3Vi2rEXSZvHjPD7ozpW b7l3lu3g7Vm6CvJW704acd0X61WDJc5GMLaf9ukHQOFkn8DVpRzLl42cmaVJITcZrEDl6VtgLvzRKbM7 HvggEgk+jslxvyHSUxMn Rm30tINxzGa0bFla1aLJBbJJhPcvBuumxVsMj2TcAvDR85vj5NwaB/uCqgwDUgP3P8bpVKAi7v0FRwEa WHIduLq2VFcHx9MPR4ld sLaClMQ9+9v65ml5+FPzxlIKYfr0AqacavtPbIJRU7sPr556TqRUkE8+PV+rbztk6qrnuiAXzMHf5XH0 pLWay4j2zKV2u120UEQW 8SHM/V6/ZGDh/zK+pre5k1etz3ySEt/q6aZvNEHv0akfDKV2O++6dS5c+Hyo7/6ypDUXnBNzt9+esSI6 FxPE0zsHIJUkHDI3VpdB 96/Q6eO/M4wEpCBwzfTk7TqhtNlBtfsFkwCl4GL9HQyfIAjcqUkdKpxQRbAvJbWPw+PHVOcWFOmTeO/a J+bm/vj+TzlfWoBn2MP4 VTrDa2sx/9tfnrg7w67xIsk78Q99NDU02MM2InaPy2uoHA/Ln/z+g2/3X/pGWfPThdN4u8qoE4x75koo XG/r/nwQ8CP73/hA5o8W i54TgNN9wySm6G5ScSxr1le1ZEHrIEQfCa/e/TmOrKq6eg0Fo3cTp4fAkMerGjVEfK0cBHRhCINHSQDy Jhqw8qoYz77wJ9pOjn3b WaQEDl4qrQA4fHArVQJl9v5/ZbNDOBWF15s8vWpjFwiKiCAp0c7Q+IvUrtXpIw5qeSZd0FGBu8aiTNx+ kQWtSHQpOvJOF5n3slyw pAns6FqR6He6yYneJjay5mwIgQDGoCNCG9KDiMYx8hp7yWZLWCIbTJf19PQZhVXMI8+aDc68Uv2BQHxV Aq8qew1oMvaNtvvYl2+R FfbG9SLWH922gSCC3UzBooyAkF3pByLjt569+9j8sURnifMhx0r/hwM082NZpjTSbmA9Fa2IYslV1IVU Z1hs0QjXAbsedv6aJ2Bl lvo6RFW14QKq903cMBNfl6UmgrBylu+5V4lDl3Kt5/f/sY86fTARys9sUkBKKzQodi11FQLwoAwiJcNb GkzqcxSIXIcd/5ciEqtc zv9TPYmcys+yd4975YfAW+NWhMeHvbg/d7fTpsCvGTRt3k8yz1e+Yhaz2LjBPT1gvxEWRdrUzUsuFlkE AhHqARP0ltFMdIdlajPi nEYRc4z1caZlbVDrun3quLVcyl9qvlZTN5zGElK8Cp0Ek6bNle0l/cpFbkfQP5IoNDg5+arlKiy7kRan BN1PJDICZylKHTmSJ8Yf vWNeSKwBPYj36CXhALrE1hdeGVOa/z1xjJDCx9SIvx8rgEJp8zpiQOViCxjvVHIKoWm8ac7g9furSu8N aLc5gSj3umh8bauBD+kj 7IZJSMkURXFZVtr7fv7MlHjaj9WNr6UrUWrakp/yATx0KaY2pUf4ma+hf3DYi69L3JyEBEvhSQ044dgd vOC7s6q+q7g4MRrysmCA 8vkTgCsZIuxv8K/tmwDn686/8wBZZ2llq3lU2ccERSDAX6l+4mRQHgFcCRDWNfUw7fwZkxb9+SiQ9CnJ PNAg0H/9vWUtBw2akZjU Xvgo12hdw31jIaddPwTrYaLodhKayyLb32gVUPt46wJO/7Ytr1v/359+r5LJKxzlRZUX3fMtLROHuUaX 8Ybk3eAthe4+5tKRv3Xx 2SzV7zMVCnS7UCEPrLf9rMPqNiPgagvtqq0uZUGwRtEhDS+/C9ezxxy1sTU5QOqOJaJle30OmpOGlYFl z11l2lkBDTnTl/euZOcn CcmzwMefvwNuhcooeF5o7tt8CDml92/sVhcUFE/gJMWCviDAh41TwHU1m0+mY8jwAX0C9eOyJLQPQz5c SHnQiwuFgAQBJGWlrZm9 ddQuAGY4YBg1+p1a/SKIPff4Gq6hj4+HqQLNy3haWe/7yg8Gb0sPidkuEGYudrXRfsWmpyV0Za5fr2ZX 1ppJcrnPe67AGwrDBQgG QIf7nuSU0NFwrKl1nrOmw5fT01ZWshAiZDZ4tEk5s9wVUx7nGRJpaSsJS4cNfa/f/wfNI27UqMBek01Z Zhx6uVJ9bo49+aNm+zt7 Kv21kMjPDitNHy/Ao0lnEgnZ00m4TIp8VKgxiigQiG6xu7+WAWmqRgOTO4iIHp22qkb4NXluOjr1R91b 42pguu0c04OYUwQXbly0 MQw82bfIs9jhke2W/XNN/C+O6vXs383d5sfkNlfL8oTq0LDmX9FMtPHXb31w2DT7mW0yd7n+/v6+fv6V h3FTGBiWm3nOe9VtvtOv y26zxHcpgxHH+ta17qv1LZmVzt7ALBlhEtUiABuKjpmg5s06KaNy4Bnhmo2U4/Vfd8KSGrNA82wevvO+ 8UQD0Fyxly6Bi2i9CjMh VVK72BQm9pFYoO2oDzoW89Sjd1wV3ekH/f4+/pt37rN/OCjhw/6po084z4hNOVC6CLr6Snp1/j7+u3Y/ kf+0N07d/r7+eZq0KuMi Ot2G4CgYqtGv//y5Uvzg+ATmNX21MkEWKUuLszbfzobv+7r743zpNi8orfb2mJ7TAhBpC/w0jTAEV650 BGD6Zcpzpy7bMNBXyEBV zvh7cZbP1D96wfYkCt97iDm53rHjOYec/utv6/f/3u7Df44wyLVWM7yiU34HqJ9ibQsf8xDETEuA/TyZ Ptwu7N3f/Zsf1+/7p27v Pu7cdLUuEAi4Aeh8/FIrTpeLdVxUEGdRVViUxn6vA/Rx5v4QTnUrZM18AiEgQvKx7lpfy/puwLE0arnz tiXVhYTyEn84nX8iTE++ snf12/VOq4ACF+2dStf+L484lXz7KGoqqrE10+KwAi40x+zRpdMAwu14vFulrMvnuiU5Gg5tdZKSZrm3 eh3ciSKIH2rd99nLuI7i Pa4bsYQ6Cq86MLhiJZhsdVbFkQZ11GR3enwzZeVxVyQULFV5usyK/i2kgU+Kt5d0t0CvMeZotK0IpuWJ cOXOv2y6++f62fkstYWe 6UhKhZn42u206QMYTBz97WK2WDT7goyyv3NXgdNnVdT218ZP6eG4XjS/QcO/Xs729VWodBNK/HwwQOLU KWw4nATj3Llc6ly9JjdX KjctgYBDNPVBmwdqKlXVI4Ad1KQR9htR/4H9x+wKvMRpKamxr+JN+36+AQuHXlb0s0wh1Ih+W1Zh7yjQ 44sNU3Zs2nNusQaMbbRk 49cNwup0senwGl3auJSm7bAian1/pqzi89wh78en/fgCUvePdiE0pC2kQcSji50tZPeSAE6LeKtf3OTg Hl79iidcc9QQvHrWguqx ujexNfGWGXR2zwjWRFBmMk/MVfWhHLAICxt4fEwPOh2i4dvER5/ycBOVv0gx8am9Q4wXt6AE8/PuTNnZ 81uqyYKDq3EDdfp2iqVj +fN9/Z3pa9EXTirQR6nu/Lz9c91MatESo54SVzT8Qu9ojM+Ih8z+blbj+3ehno01LGU/t9s8Ygrs94kb /rjGOtXlOAY5h5EkEb1m +Z5SmXf/v2+zvkBXZ8zWamc/ga3WfVe9NpOpfyB4Ik3G2aT4rm0+mDImNmG8C3XvSttofSpF1pUqjrLX sETUlUfsESm5pgGBxgu4 or1xctLZatWMQjrsmOfP65lbi1fNCkPDWjakCStUYpIyQXk7Pdu272CywCj8680y7gYm3WDBo2vTPvkh HZd06kowVb3E9xH4l+DB NQMrFe/vtUsbt+92iKNezaUEwbgZVYuXDADZqCuCD5slsziNT0+LVTaSmLRp97auaweTMIHDWePtqC9Q phEzwHnWovkziR07czrX 9i3/4ePdvNlrJwUy8+PBd4+Wh4ws51TR4w8xnlPHAQUMRJF3YXTF3LZYQ5+kNOBeqb2p3/8PHOWVQGSJ IUiEQCIxWKhUFhQOvlZO G9+GMSqQbCYz42aOSKO62wPNndCaGx/z37x/EV+yAnWiW5mzjMX+i3uIScw5TmkHZ619gmCeh7xRbGnF 0+xjxo25dbxVRQ0084jf UFWvyQSW1kjW8FiBF5kOKKjdNI44uW153T5n4+/evWqX//+V7KkBOiw3n1gaHaqDypVs5cWnyrV7/fN8 mW/te4CxHWwGWOA0SQo/ RWK1bdBdbp/MqLbOETmCT8bclVNaNLZbT8tsCgQcGSN/grcTp7uqZk8TBS4oPgS/74vLJxdEHEB3nFWZ LS8t4/GiwBG7mc8WO7+f lJUcIcO+M7NDqAbRHd3kQNy0cxQZ/eiRd6tK78p1iHpDgqeMtpiZrw1/Z/UnZWaE2Ru56JW5c3cSGk95 uPHjhczzcKxMHF+0EPII 4BCSYxva7X8Dj+GKboz5Mzs2ZwxIQXmLh/9/xsDqIiBCGrzI2E4V0VKk4u3lPBqmzQcrptuQ8qIiWxqK Da1z0bjjc7FDWKkoTsvu /JSCrLq4huVDwJzQlgo2+IG80RyRrI+2F29j6eXKEUsoQQiKuiOAoh5P86D2Ed088plll+6Z/kn1vpZ5 A0dSrmAn35Xzoey21Gk0 WvVujUAXA+/ulZ41Hxh3GwE742YZSncaaJhj7a836/hT/PY6eTx7+rVr//HjgYNWq2vVOKqEbw8nD4Tm EzqEATQsVaApa79fg3ni TeLTn0j7PF3bWY0+rd1/AzWlnIdG433fXMjXstqv95CLICqjvXCZqfsUOnpGtsQLOtDC/w42QekpFns6 5kNMyyLtaLu6QJVU/lt/ yZLDJNnUGE9Ox2/zr4b+PunyMzMTExIrN+mjB6RD68cl/ft2GE3Tw+PweCfYUHDH3Di/quDVzGGcrG7B 0+C65t1c59r+Ob1m0k// RSER7pQTvfv1kgS7j16C//mDQD4+vn6+UW3KYZvlfa91a/PGRkZ/XuDQCKT5h8o+MiQAue4mMA/wsEDb ++ddmUKLVRQfRd2Qb+Eh tKcTNhWYK7MR5fC5Og5JvTRMdMEf2M6yau6XrDr7Qmcu3avjATz8r3dVj1kmngpYSu2BmcKYuzk5Buqu ffIAODB/miWQf9yo7SVA j3otRX4uZrWNroM/f7gH+3WCDdTaCrAKOMW0poqK9TR4jQKeXcCBk4tv0zj8b/yC4g8SRIP7G5lkZhSc U11egmZ1Kj/bldAhwIAS LPeXUhRa3C9zll1r6AhX6uiyS1wlunjkG0A6NH76ZdHWNzFDwrf/Pj4+cD46PiG2Ye3n9N/k7ysNuRZT mnIJTubYDNt6vuSWSRKX gRnZxfzVpUyV/coTsIoqwrqFa1BUh4JDKEIAJoWLsudUt3JchU+/NZxuyfeAzZHl6ox3FgfiojFxQp4O SFy37M8XbOonqe1+jgq6 z069HENC3Rvnf7sbM1YZXv6C67fg5NblzpyswGMmYuQf7+/JqIyXOcewfs6BxNZD8LeMs/zcJv0PVdAx LZwG4g3zbv9sG1zzJBmj Y9fwG/CcUE0MwRxi4lKeOz32Kjn7eMnsnCVTySMONTwcD+VYdSzQlO21cASS6EQ06fwC0twWYYIz5Dxw 02nVU7YiUPK7RyAAwgg4 +GHceMNRoPVDoWJ+k4vgPk6bAVHl/Mp8Leqa3vq9UX9rt93kwRU2qw5iisJxj4kMzSncK0tJqQoSs8l/ 0mIRP03ss4xw4wcEmt2d ht55ZMxze2+utD2MXp5WJxBvT9hKzzQTSOcD1kEbVtuO63SEQMaTn4oY92xACzbniZKEnmVgGUTiKonA WlHn83PkuoRiptiK1Nt6 9YWEEtTFs45T9cmQ89wZqaS3ASMQYOI72vzNDjMrJmWyYwBmeUBVYyhwOOa/Yezfi07ZZhki8Zb7DLwO xXk4sVeeJpFpU7dXydyv i18/z75GD0GEIzOG+M4bv/wfHVEKktXCbUWdw6jy8sYWVWClGxHQ6Q6PIr7/9dn+MiRABD/8d4OVCX+q GNSoWLFPn3/9/8KWs2kU 2cZthAbCk+Tfr7JpBypEfz9q8lkrdhbxP1ke7e+l5YFgqVlv1nHFWkkxjIxY4IdSxTL4e1sXSSv6ApNe ChUMTs82PxmgrDdRWeuN Jib+C216EIsElpjd9oz0f3/+mJOpz3Bo39hm07sMOk2r0ttVZFX/1cg+GArG9+eX4DrXSO/ruM/dEERA tNbnCjqLnqvJPBeATSat 46vtcN6p+hWn56CnyQv4MYl6hJrnOEhEf9sCTrRclWE/bIQQiIO0Vmho5gZs38lCeH7JYvv8LfCap209 JP8CzGlNzfl5jg87LbN2 4MxKlsRGg8yOPI74HeW9l3QUQiwLkMWgvUerr08gtPahvejEHdjBU2DY+wj0SK6T/batfXdD27mZgdsx /4kHGbYXO2sETe5qjx+9 2VFbSA3RiHq8enakV8VcBnaHYUns8dv/SeS2OwKCPzOO9vdzTIFru9cUsFqPS5es/L4ib+thn8iy07jU 5/mZH9Av/3X99joZaUXu 3ydGnYKSWZToGjROc0nU5rNqHMAoIGEIaz8GUm7eMQctfwPlRpl/Rl3JL5cLfCncO0GaLtnxaCFkIzkw lEcUczdRxkI5WmwEaXyY IINwh7clzswbx+egPXEdUNwXrOoFZYtt44/mkaNwkUMR83baRxwesKCm/+yaNGzZ8/jQr7lEptuQe10t nzkqNHFsbWb+Ftrunft1 t1Up/v27F26+JfuPXuYDzN/BB/9VfP9to827653ln16abxuop/qUgHM7QnLe4Crqpas9FIeEgBL3Sf6/ milB6FTPMVVEhYEybiTP XbUMLdbuvXJuM8ish3yl6+QXRC2T8n/7TDd3vNw1S1JdsqIcHqbXork8mixzWUoco9V+xfkffYRKBSKi NqFFDs29xDk4+9p0m5qC alCX3mBkapkO40aHeOOMnUYltPTtNzzmu/Oyc6+clRh4bBkfr978qFzKgpmYMPgFx6iKtt1TDCvGwEPq n7SHYrHMnXF71knXMzlr P0WiCgwztq6mrznUj88cZwzRi94OtYocZdnyejtpfigxnvfNRILjAWkZOgwRnRMSNyzhqAzZJ0qb92sa nRs71MMxtQP3vBwzOzh0 1WElf4zboRo87rd5/Xwq9szg4cbaDs9BJXeYCqe/NyQ1SUcYU9M6z3r5y736GNHWNrt7+fPBw8Z+kHZ5 7b0nxSxNB4QehSLJUQD6 OV9XPSXuucSMZY1IWN18dtwo5ox+9c3evV0ZF87h5jrZlSRh3kRQeT1h4SbEpaTnd91v8/uQanxbx6ip b6rGYmqdXmrUNGO24FsS egqc9Mz4SW+aK7pZ4mD/6yKxmCpaFNVpuP5VdtLJThJ9h+3Xz/e+oR4YtbXoJy/M9ebkk4y0Ipyh2rH4 40bgRqviHVAknEx5AgYM NX84Sml/1Ub/b117Px0Y3OHfRz1x+AJNPudyrW86lzzTXMfPVPEdyow65416LaL6sA+yb630cSRwLdr4 HyKcmO1xKmb/+7Y6pOzH +NLYHLpHHe65Hls2zk1y6mlmI+jc0qCnssMusypTn6MiigVcdQP4Vp66jC5kIOb3m239tj1/W6vzHk3+ /FghjP91D8upjR+2Auvu Nt6QGNU0Sr/nGSHa4bmsj4rpvKMXOTdDiG6UnAjGNIn9qpi8h54j1a/AkBiYuLkH3/T6UDM1kzLaRq4B 1DaZTGb3yESDGmBkud// Tus7Wgoj6fGzG6d86/o4qpVDQPc4o878QYyhMbpFG8+yPX4zVVWK1h7COLEQLOzIZq0OQ5BN8581exMb 7Ls+KYbGFDk9Eo+d/Jvw fEVtVeeEwiudt2F2i4Y5+/b+/ln2tlw63cnjbrQSSeD+pdyVkMH6Kf4uuWpC4Embvj+prVX5hcNtFxiz fbg/IUL+Tnwf+7evXXzZ onESg/F18+QoqVxp4kYS2GawHFnLlpkZCAuQPotKW8/dtlFlapOMBIe2XJbi2WMvEfQ7JGpNBIZCcyX3 7Zt+QpWZ5Ey20gfKftvZ AAZ4Rjuu68CXOVA/8Bly5gPof8vXHLh6B23tyIZnjat+VuJgbtv2jJOt2RWeuh2GxLmsPsQ00/ggPwRD SLxSmk1ubGH0JeX2kIQJ Tq+UrDiV8scKSXKqDydkSQR0mnBkpwFu8SwgjErbkUEEbYEYMybfP/ZgLj6KoF2Fu+uLpCBPlsmuM70q 91f4slPn6uZ4vko6Jqi5 eExf+MDrkRwKy9dTltfopUAeaK9uQCD6ERhD6bMXBf2unAl4UuHuuAWEBtzm4WMvZaGzLLiKKdwLdDd0 Tgt9obZ9sRgiEG2f1NI3 92G1EU0lyZPvt0/AICnp+dacamQ00CDfRaF/vrMYZSx0ia9s/g2M764jvYG+0GwvYt4K/4BuPkQ5rbrC ARgGYReacGsxuo1c79kC gENcl842eAUi8XM1npFkqARzk5RZENcJtyz/C3iCufM8ybPmoVJgi/nPuD62aDE4H1rxdFyBovsZLoVe 1Cj3OTpSuUS8GoKhI04R u229b8x030x6N9p2xXtP5CiP5U7ocgaSixdiXUcxNEFsPA11HthObbj5k37U9o5QUKbHc9MGBpZ4icll 3A4rsf3TIKM075yz6TfR dHgKZqXrISrWLDvFoYf0d9ngyZEGvWAOv5VOKCkiv4Ebm/pzQi9QFRiElx+fetW/sd4Btdy4UUA7s3c7 ohQZgGLZt7RUretUkyKl pCFXoelwodFDsHq6t0fdfxtqAazPWn4ICd/hH8tH5u+XV6DxhhBdsKWhrV6XprE0hOcSMJqHd39RlqEf Z1pwp0zlxqENq7ZMQuRa g36bHaPEbmoua897/aqBASZd8hCJbjr84BjEzSlCyxi6zUidtVEMd4y7a01LBZdwQaYWCnDf04P5PIr5 hYset9hbo4LuF73Kk3j2 +margret+CXu86mnrDdz4ig4O0wCPuuZmMXmbMbFW1m/aizMPVh85KjDv30oD2c4S3+zZFb3hrwv2uipoGJ+O P7zw5ju4SmTcZ2Byf2rQ z645Ima0mmqlUntqj692bdvdp8kl+gtSExM/B8j98hT98DHc/gR8/cYSYFrziTOvVox0AieC1dry/CoU WvWrlkjFosDAgNMfppW4 O4zMJGxNrXDrYcyN51ukMNlkr0qvCGz4Jw6Uh26nc/58fUPX26FwOCXTQwS19we/973v7KLOs0te6hwq 2zadGDf/uVLl5k+XQEAs TGx58+OFNOIwj19F9EJNmH1XMqk3+8sRTnomYb5NHRegmyKXvKE2Cj8Rj4yp9d34PKm9/9ISUlRKpUMw 1nyToRGmEOSTL7rPljb0 SPLVKv9eIYK0/Tez8AlKx4CqOn3N/v5s+a8UTh9P+c2T4eIdYs0j3uLJdBWkGhlyR1/f/k99jLDu6wo6 fpO6mWDjcdBQSClXxRxL jXPwhhF0798l+6cOVqNtk/kptSk5Q3w3WgspSuvKKV+QKOygxdCnkiTxzkbc2YjFDIW9ttLsZoIPH92T K5S+ztDWgmpKy2Ven3+T bxAKKBIUqVSRT9+hRLzxlWFwu3EiSGpFFhr4s8f/CvypDGBd4wmjo+7ju/CKYJaE48XkEJFBXkD0i77E y1paxkyvbOlCJR2FFb2J sVlveUvxQqpRGQye5I/4k5z03LKEyDkEuCW9euC92+it1as7ga03Atz8RIYtFgmqSQAzp2vAgypSeynh Gc3qXRXDUAKKagRIP0Ks nNue8oqF7FvnV7bMznafRfs98ljrbx28FfSfUpW8n+XNGMZzDvlkX0dC+YbBdzNlZVCvqlQbS63HeYxx HUnidA6pTrVe1xq7ztfH kq4NvFERAsBqQiwjj9MofOlx+mcCJ1BH7yc4IElNO0kYBEQhv5BdzZySTAPEZZ19bt0169hrdpVTpn/7 Q6dy15oB/j5+qHAo7qgv /LJwK2pF/N6ExEz5+pRs5AukFF104+fP3/17F4q87p0qQg4WgWHjZ524/HGf2h7e1r1Kq9LuaU7klbd5 SaIS6nLywCn8jc3mALHW s6d/fPVa8jUYMlZF+TJApAvDmHdGJsy3fYG+/uxBxRGEMQBCz780ccJY6hGVlLz5Z4+lwY3H0O7dMIbw rTfmb486vclv9t+3L2bX 42y8qYDLNGUweSYTbGpVx2sc/kebKpFAUzCCsvPH2xTL8WVBO4wRy4bqRMTkFbULr+/Nj8qWiPhcXsi9 pUls0RmaQAau4yderr8U SzkBQoAWjHxzB7xfari/+n160cdag4vd5/LEw9WJUPZ6m3hqPXFXu3willnTRNNW/hZcp1vPDe0KWtQJ A9GwKYVcO/+/tbSK6745 XMf1bjMFo+4RB9t9k40u+/F16ly3Qfxg1riJZVwdinbG4LNV1+u+CHJxEwHQ8Iszotvw5k5CMnEtRcXt JgxgxQjFwEYnTTRx7W1D WnC9O40Gtn91HP5p4vkPkB19FX9o+3woElDGJGnEEENWhw4Fe1FLjPFtnJclB//6uCho8VEpWDBOWNg4 i6nsuAqY4SA6Ft007f07 4FaNF1M30nLfcMsVS3ROKY7FZb3b68jqfiJTFx8/7zTg6gj7JF4eix1nWFwfxzBYlYpD7+uYZeTeqD7i qaFrhjvp3ilVHFD/4ED/ 6mPjLAs++D+y3eMk1L3dfTWxKtVYCJFTRW1VSyrXBM32tBw87VAQeICTwcm5i5K1dchqhlqu4Yfr7Nk2 7IwV9fKcgHibGboQx2CS BPnW57zFna99hNXRQXmcPxlyNf9SgMc7zc/0uUa1CAUt8E6nkKd4RbH95FJTMxtpQjsGEfpPPkC75sRZ MKVEB9/9XVMw2Qq9+Agk 8oQQkajQa/Noo8yuXUORp6kczwFtKcy1uaocb4MbLoY2+nzI4judDjCkDpbxxC5+swGs1HmySwvDOr33 oWLd+7bLjyVXjIS2ncNp 5VhTyXpxud097IMFtz/LNBSSSdtqAVK8DB4DHpQc4KdqLvZjee2oTur+cJgMJh/A//Y+RmEk8Q5adETc mAwpQassDAYTKkBKywMB zBguMoUo0UJVzBEfoCmfLdidJNKHHbCBzbNBaKulUsNg0HVTcYNciNjhTuqqCKROIsNBqiYRoQdkWoIr 8GUGrDCwmAwpQassDAYT NqFNwaXEcHxkDeWt2EWRqHHhhYxxCmrzCOXDZoHHzmCDiOecYeMv5OIVeHQ+wa0iEaRgATrDm/++OOnz sfq6q4aFci0o54e3+joK BKJ+fcpwbRZya2mOl/m8y93tYOR9ml9E0pWmjWpYwV9Jzk62jg4cfb046om8c4aKg2JTGLj103BvlOQM qPiLiQa3CJM5980azzgs 6GADD7qe3/B2YNk0viaSgpLm46HG4+1ovYxMCaJMCbFnmpg7j9hSuXqozx/SGnr86Hfzyw+qR4+fPj/z OjSpcuuXbs+yw8Vva9eG WKEaZe/4f372qsy//0pnV0OHHFOYHDCOYmbC6kjljLdLN2DtQjSFS8wGoEPZ2RR4sRoP1TBo6077c/+o R5hhoBEe908Uhbl2qFLA E+ePCkk/sMpblASzz6jGEpKiDXSxOy1cDtDSkOwEX0fIi8ITFXJ4uQMq4rXlf0EG1bIlDyIlnONa4cAU Zv338Rff3O2/ZkzVSqV5 b2Wt4OSRLBkcd2/0KkDt03n+IX2K4JC/myIUPv3SBIK6IQlCwuf+xYrsSOC0degPEQWuOVmnmA42vGdL SW+LmPLHZt76iT4abc19 91hT9AxLR9rXg5wpmtLTxHfpIRQO49uVymXoows12xEb0n+2iTGmzdyWvlYrj61+kiw53OQupxfTcmXS d9lCOON7Muf0Np7DHqyT v/73265Y0F//v179+6dSICvYaz752nCzOfM33llWlr0zuDlxZu1+L9m7qw5iioUoFH/gFrQlSDc4gR01 bWOLbjJ56ECXb+7bt26A oZroRZiJ96GHGbDWDvUqmx9fM/g2LUAXTZa4jZOOfdgQ8oWtDvtbgVXvPdNp9f1aCugGu1Sum4Wys2v1 jiKVOIWi6leIqV414/z2 /oKnNdc94w63jy/YzroR4h869RRKrc/UOql2tl9N/Pbz58/AyR9fckgCH7vbPpAaBXzlSalcXIUofC73 ZnjRwasyZp9doMLUshp3 ZQlVMoaYSaZANxHqNYKNFhCTDfliweKGb8hMFQds7YIlCgw/GekqJStAUJNqIqPuvOn4gm9jtPECADSZ FlZWQAwc+bMpKSkwhWWB CmuXkLW9SJM46SfI6bzG4Pt0IlaDQ80MML3Ke88bNv34zQJdvWfh7on1jmWMEfEQBXXdur+08L3qqs1t 4clOLNa1VycWyRaZtCft PztjuHDh/HoAIfZXIUq4baT1LfEgbOIs4oNjFZGOJt5ywVzVWTWUC5suzJmMAaHrN52Jd0p/Osw4dHqX 2vIFpZXI151keBarrzpu NJB7/dUEgXdYmcU9Bx6MjyemIe3oAkl4pUpfEoLnw8bRRn7+/ncM8VbLxFi2EmwzSFlBWXAGYrjSo8Qx g4By9IC92VTjyFjmKLj9 57yvdUmBWWN0LS4HFWGv4GgujHr0d+yl3ul7b3vPhBOlCiBlhNjdv//zjmwMQxIXQSmQs8PgRb6qz0Bf Tt/++45PNbUYxjP6tKYS 6NOHhYVUfhJX081g67Ja3ZdJNukrBzgn4j9KaPknH7/v/lY7jU617iY1R+K5vDIh5Nwls67269CVj6z6 CgniN5WHRXMVa7EZMhVP Fl+ycomUxXLMQpHGnoxDiUck1hKQT4B8UHgi2OAtNaGdMDML5vX7+UGe92r5p97heKornnt08991gMCq QAAc+bMsThYUAtLIpFYH SusXr26+TgyadsUceSlRtNTlzTiNj7UHTy1cwmomgQtSeZjDF1ursvBK1iqH8mssxgHBP5vguC5DOxi2 Llz+YtUoUKF/AX33QFfC OOQ43VzCcRUZ9gNnT6s2HUoW6Sio8x38XdYFtSs6WwgZzYKoNmXvU/f4U9TSqwUnWnDJy2f3ul/+uqrn JycQhJ5+fJlMbNDCFnkC DPdmhHZZc27Ww8ucfNc7J3FwMYt7gtKdKqrRgwob2+PNrXG4gv8+vqacjRhNYUaNWoAAG8+C3HzCnlZq OJZZzNew0TcbzUGrKqt2 KFvUPRy2zx857NtP+6pcHFCy683CNfXL/9k6oVmK3118495b+/gXYm9FNPXfjEwwp9RDIPUZMXhmlvIS GXWuv8ccUojNh407xmpf Dt7EO7gXp4eIjz6CgxqHhQNkI156ItybUaraDeuK15zER1CVuYtTPXnz372r1BhhuMCNzEq345/++23c pSJOGrILKCbYahzKX9q1 moHIvuxI07FH0JzYHIs4Bi2z+y5mq7p1jtIw6HkRh08QsJl+oTz8Y1B9ziIUYq7GFJ8ulKU7+Vk5FqzZ jRSgJn9YpVYZpUNZy49k gDlWcfi8CJwRlv9wbu2ChF65L/6sdecAZHmxAgc3ngamDJZ8tcrHOyBZ71gGEvgUAM4K8A6ZGUkISRhw dK8OOmeqF/SokuIEKpfv x2F3gSJt4nQAPkx+s9H4W+BqHXtZbRTEv1njiBAqee1Ai1e1hVc3qb+kfTkr1RXFDPOlb5l9z0s4Dtc2 vz56tDixdN/ERQUZApat ImTX1n6w4r+49atW/aJMPa7lKoPe9APtkfoYvKNSuMZBkE6xNyF21/Jts9Wkgqz9M8YeaouWlE6y5jT/ Ewqvc1IwE74m+ePWJASx 3knbDmz4gsQjFDK7Iv1gfBt489TjMqNZ4b0bMUoQo5YEjNg3iR08iqQOix1ax4pLqX2qsp1oaXZPAUUb /utb7l850+/FYlEPj4+j g8X3dfI14clV9+syc/z58+vXLlichMHgJ9++pli1vv2drk+/z9w074esUn6XekWxrh0+/wyFeNaHV3xN YaOwRicw3F0Ju6jpNq3c rgwzvNiOg7w1khWuDOJO6ud5Bd6yFJ/hCKKeJ520f4+/cAcqyPwHfxpPi4ywnAwvxJRUr1t9p10pcAMK B1XZdCRuQrxUXzyydWtA snrZARPArDLvIm1I28rqqCNhdWfnSZq5eo//vrr/XIamG3UseVp3kkI2QhlFzTCVgBbeygasPHc7rvqI mPSFuqgQFNO2UvLLR5Nw ODmD23mmk8nCBKTms57IHZKCa3lb91tnChBtYngQ+wHtJrMHu12zNYk4C/TfnXmIql1HoCGnOqWVsyPq GQqeLiIp2NCAcXMndUxh OehuQGWKRrQTtqYThKzrGzKt2PMOcDKczHfeEx/A55RS/u2g8NKQKUYLLkQUlWyBdLU></span>
</div>
<strong>Patient Name</strong>: <span class=clinicalNoteMacroWysiwyg id=[id number] macroname=PatientName spantype="macro title=#PatientName>ISAIAH MACIEL</span>
<strong>MRN</strong>: <span class=clinicalNoteMacroWysiwyg id=[id number] macroname=PatientMRN spantype=macro title=#PatientMRN&qu ot;>[id number]</span>
<strong>Date Of </strong>: <span class=&quo t;clinicalNoteMacrTaysestefania id=[id number] macroname=PatientDateOf spantype=macro title=#PatientDateOfBirth>1985</span& gt;
<strong>Today's Provider: </strong><span class=&q uot;clinicalNoteMacroWysiwyg id=[id number] macroname=MyName&quot ; spantype=macro title=#MyName>Wiliam CHOUDHURY</span>
<strong>Date of Service: </strong><span class=clinicalNoteMacrMaraiwsafia id=[id number] macroname=EffectiveDate spantype="macro title=#EffectiveDate>06/18/2025</span>
<strong>Attending Physician: </strong><span class=clinicalNoteMacrBernardo" id=[id number] macroname=AttendingPhysician spantype=macro title=#AttendingPhysician>Wiliam Park (Medical Oncology)</span>&lt ;br><strong>Referring Provider:</strong> <span class=clinicalNoteMaMeghan id=[id number] macroname=ReferringPhysician spantype=&qu ot;macro title=#ReferringPhysician>Kimberli Enamorado MD (Endocrinology)</span>

<div style=text-align:center><span style=font-size:14px><strong>HEMATOLOGY/ MEDICAL ONCOLOGY FOLLOW UP VISIT</ strong></span>
</div><div>

<span class=clinicalNoteSectionVisible id=[id number] internalbreaksection=false originalname=Reason for visit recognizeconcepts=true spantype="section suppressempty=false>Reason for Visit</span>
<ol><li>Iron deficiency anemia: Secondary to blood loss.
</li><li>Menorrhagia
</li></ol>
<span class=clinicalNoteSectionVisible id=[id number] internalbreaksection=false racheal ginalname=Impression recognizeconcepts=true spantype=section sup pressempty=false>Assessment</span>
<ol> <li>Iron deficiency anemia
</li> <li>Menorrhagia
<ol> <li>Please see hematologic chronology below:
</li> <li>08/21/2024: Labs show iron deficiency again hemoglobin was 11.1 ferritin was low patient was symptomatic.&a mp;nbsp;
</li> <li>08/28/2024 patient had IV iron.
</li> <li>Patient now returns for planned follow-up. Patient reported that after IV iron she felt better her improvement lasted for approximately 2 months and now she is feeling fatigued again.
</li> </ol> </li> <li>Menorrhag ia
<ol> <li>Patient continues to have heavy menstrual bleeding she is working with gynecology and trying to schedule an ablation procedure.
</li> <li>Patient reported that she has not had the ablation procedure she is reluctant to have the procedure as one of her friends who had the same procedure had complications. She continues to have heavy menstrual bleeding.
</li> </ol></li> <li>Intolerance to oral iron.
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
</li> </ol> </li></ol>
<span class=clinicalNoteSectionVisible id=[id number] internalbreaksection=false originalname=Recommendation/Plan recognizeconcepts=true spantype=&quo t;section suppressempty=false>Plan</span>
<ol> <li>Patient's labs show that her hemoglobin has improved but she remains iron deficient with ferritin of 6 and iron saturation of 13. It is likely that patient will become anemic again soon given ongoing menstrual blood loss.
</li> <li>I recommend that we replete IV iron again I will plan a follow-up in 3 months with planto give IV iron again we will do labs ahead of time.
</li> <li>I encouraged her to continue to work with gynecology. </li> <li>Patient is unable to tolerate oral iron due to GI symptoms.</li> <li>I gave her information sheet about iron rich foods and encouraged her to include some iron rich food daily in her diet.
</li> <li>Also advised her to take Vitron-C every other day which might be better tolerated</li></ol>
<span style=font-size:12px><span style=font-family:Star,Helvetica,sans-serif></span></span>
<span class=clinicalNoteSectionVisible id=[id number] internalbreaksection=false originalname=Med Onc Advanced Care Planning recognizeconcepts=true spantype=section suppressempty="false>Advanced Care Planning</span>
Not discussed at this visit.
<span class=clinicalNoteSectionVisible id=[id number] international logistics analyst albreaksection=false originalname=Pain Plan This Visit recognizeconcepts=&qu ot;true spantype=section suppressempty=false>Pain Scale on Today's Visit</span>
<span class=clinicalNoteMacroWysiwyg id=macro_[id number] macroname=PatientPainScale parameters=LookBackDays:0,ValueIfN ull:Not recorded on today spantype=macro title=#PatientPainScale(LookBackDay s:0,ValueIfNull:Not recorded on today's visit)>0</span>
<span class=& quot;clinicalNoteSectionVisible id=[id number] internalbreaksection=false originalname=Pain Plan This Visit recognizeconcepts=true spantype=section suppressempty=false>Pain Plan on Today's Visit</span>
<span [facility]=clinicalNotS[facility] Hospitalysiw id=[id number]" macroname=PatientPainCarePlan parameters=LookBackDays:0,ShowComments:Yes,ValueIfNull:No pain plan indicated for today spantype=macro title=#PatientPainC arePlan(LookBackDays:0,ShowComments:Yes,ValueIfNull:No pain plan indicated for today's visit)">No pain plan indicated for today's visit</span>
<span class=clinicalNoteSectionVisible id=[id number] internalbreaksection=false" originalname=Smoking Status recognizeconcepts=true spantype=section suppressempty=false>Smoking Status</span>
<span class="clinicalNotMain [facility] CenteroWysiwyg id=[id number] macroname=PatientSmokingStatus parameters=ValueIfNull:Not recorded spantype=macro title=&quo t;#PatientSmokingStatus(ValueIfNull:Not recorded)>Smoking Tobacco : Never smoker; Smokeless Tobacco : none found; Vaping : none found</span>
<hr><span class=clinicalNoteSectionVisible id=[id number] internalbreaksection=false originalname=Depression recognizeconcepts=true spantype=section suppressempty=false>Depression Screening Tool Status</span>
<span [facility]=clinicalNotMer[facility] HospitalcroWysiwyg id=[id number] macroname="DepressionStatus parameters=ValueIfNull:Not screened on today spantype=macro title=#DepressionStatus(ValueIfNull:Not screened on today's visit.)>Was screened; Outcome positive: No; Screening Date: 06/18/2025; Screening Tool: MD-PHQ2; Total depression score: 0</span>

<span class=clinicalNoteSectionVisibl e id=[id number] internalbreaksection=false originalname =History of Present Illness recognizeconcepts=true spantype=section" suppressempty=false>History of Present Illness</span>
<span style=font- size:12px><span style=font-family:Star,Helvetica,sans-serif><ol> <li>Patient reported that she has been anemic for a while, she reported symptoms of fatigue, not been able to go through her day without exhaustion. Patient feels that the symptoms have been going on for a long time but got worse in last 6 months.
</li> <li>Patient denies seeing any blood in her stools she has not never had a colonoscopy.
</li> <li>Patient denies any history of GI bypass surgery. For last 2 years she has been taking phentermine and for last 6 months Wegovy to lose weight she has lost about 60 pounds in weight.
</li> <li>She denies any restrictions to her diet.&a mp;nbsp;
</li> <li>Patient reported longstanding history of menorrhagia.&n bsp; Her menstural periods are long up to 7 days, and she has heavy bleeding. She has consulted with auto transmission specialist in the past, however unable totolerate oral contraceptive pills IUD, due to side effects such as weight gain. Patient was scheduled for a uterine ablation at 1 time however it was canceled as she became COVID-positive and never rescheduled. She is not interested in hysterectomy.
</li> <li>Patient has 7 kids, youngest 1 was 2-1/2 years old. 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 Patient tried to take vitamins during her however she could not tolerate oral iron due to abdominal pain cramps constipation. </li> <li><strong>01/09/2024 patient had 1 infusion of IV iron: 1000 mg of ferric Derisomaltose. </strong>
</li> <li>02/23/2024 hemoglobin improved to 12.4 : Patient reported significant improvement in her symptoms.
</li> <li>08/21/2024 hemoglobin dropped again to 11.1. Patient is again experiencing fatigue hair loss.
</li> <li>08/28/2024 patient had IV iron infusion symptomatic benefit.
</li> <li>03/19/2025 iron down to ferritin of 3.8 ironsaturation 4% hemoglobin 10 IV iron repeated.
</li> <li>06/18/2025 iron ordered again hemoglobin is 12 iron saturation 13% ferritin 6
</li></ol></span></span>
<span class=clinicalNoteSectionVisible id=[id number] internalbreaksection=false originalname=Interval History recognizeconcepts=true spantype="section suppressempty=false>Interval History</span>
{ }
<span class=clinicalNoteSectionVisible id=[id number] internalbreaksection=false originalname=Review of Systems recognizeconcepts="true spantype=section suppressempty=false>Review of Systems</span>
Remaining 14 point comprehensive review of systems within normal limits. NCCN Distress Thermometer and Problem List were collected and documented in the patient chart. Re markable symptoms and concerns were discussed with the patient. Any additional follow-up is indicated in the plan.
<span class=clinicalNoteSectionVisible id=[id number] internalbreaksection=false originalname=Medical History recognizeconcepts=true spantype=section suppressempty=false">Past Medical and Surgical History</span>
<ol> <li>Menorrhagia
</li> <li>Hair loss
</li> <li>Migraines
</li> <li>GERD
</li> <li>IPMN
</li></ol>
<span style=font-size:12px><span style=font-family:Star,Helvetica,sans-serif></span></span>
<span class=clinicalNoteSectionVisible id=[id number] internalbreaksection=false originalname=Medications recognizeconcepts=true spantype=section suppressempty="false>Current Medications</span>
<span class=clinicalNoteMacroWysiwyg id=[id number] macroname=MedicationsTable spantype="macro title=#MedicationsTable><table border=1 style=width:100%> <tbody> <tr> <td align=left colspan=2>Medication List</td> </tr> <tr> <th align=left>Name</th> <th align=left>Date</th> </tr> <tr> <td width=60%>P hentermine Oral</td> <td width=40%>12/21/2023</td> </tr> <tr> <td width=60%>Finasteride Oral (Proscar)</td> <td width=40%">03/19/2025</td> </tr> <tr> <td width=60%>Minoxidil Oral</td> <td width=40%>12/21/2023</td> </tr> <tr> <td width="60%>Vitron-C (Iron- Vitamin C)</td> <td width=40%>03/19/2025</td> </tr> <tr> <td width=60%>Valacyclovir Oral</td> <tdwidth=40%>12/21/2023</td> </tr> <tr> <td width=60%>Vitamin D3 (Cholecalciferol Oral)</td> <td width=40%>02/23/2024</td> </tr> <tr> <td width=60%>Wegovy (Semaglutide (weight loss) Subcutaneous Pen Injector)</td> <td width=40%>12/21/2023</td> </tr> </tbody></table></span>
<span class=clinicalNoteSectionVisible i d=[id number] internalbreaksection=false originalname=All ergies recognizeconcepts=true spantype=section suppressempty=fal se>Allergies</span>
<span class=clinicalNoteMacroWysiwyg id=& quot;[id number] macroname=Allergies parameters=ValueIfNull:No al lergies recorded. spantype=macro title=#Allergies(ValueIfNull:No allergies r ecorded.)>Compazine, citalopram, morphine, sumatriptan and topiramate</span>
<span class=clinicalNoteSectionVisible id=[id number] internalbreaksection=false originalname=Family History recognizeconcepts=true spantype=section suppressempty=false>Family History</span>
{ }

<span style=font- size:12px><span style=f ont-family:Star,Helvetica,sans-serif></span></span>
<span class=&q uot;clinicalNoteSectionVisible id=[id number] internalbreaksection="false originalname=Social History recognizeconcepts=true spantype="section suppressempty=false>Social History</span>
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

<span style=font-size:12px><span style=font-family:Star,Helvetica,sans-serif></span></span><span cl ass=clinicalNoteSectionVisible id=[id number] internalbreaksec tion=false originalname=Vital Signs and Pain Scale recognizeconcepts=true spantype=section suppressempty=false>Vital Signs</span>
<span class=clinicalNoteMacroWysiwyg id=[id number] ma croname=PatientVitalSigns parameters=LookBackDays:1,ValueIfNull:Not recorded on visit spantype=macro title=#PatientVitalSigns(LookBackDays:1,ValueIfNull:Not recorded on visit)>Blood pressure: 116/80, Pulse: 77, Temperature: 97.5 F, Respirations: 16, O2 sat: 98%, Pain Scale: 0, Height: 66 in, Weight: 174.6 lb, BSA: 1.89, BMI: 28.18 kg/m2</span>
<span class=clinicalNoteMacroWysiwyg id=[id number]" macroname=Immunizations spantype=macro title=#Immunizations>Covid-19 vaccine (Pfizer) (12/22/2023), Not given other reason; Flu vaccine - Adult (08/2024), Notgiven other reason; Flu vaccine - Adult (12/22/2023), Not given other reason</span>
<span class=clinicalNoteSectionVisible id=[id number] interna lbreaksection=false originalname=Performance Status recognizeconcepts=true spantype=section suppressempty=false>Performance Status ECOG or Karnofsky</span>
ECOG: <span class=clinicalNotGroupVisual.iomattioWysiwyg id=&quot ;[id number] macroname=ECOGStatus parameters=ValueIfNull:Not santhosh rded spantype=macro title=#ECOGStatus(ValueIfNull:Not recorded)>1 Symptoms, but ambulatory. Restricted in physically strenuous activity, but ambulatory and able to carry out work of a light or sedentary nature (e.g., light housework, office work). (Date: 08/21/2024)</span>
Karnofsky: <span class=clinicalNoteMacroWysiwyg id=[id number] macroname=KarnofskyStatus parameters=ValueIfNull:Not recorded spantype=macro title=#KarnofskyStatus(ValueIfNull:Not recorded)>Not recorded</span>

<span class=clinicalNoteSectionVisible id=[id number] internalbreaksection=false originalname=P hysical Exam recognizeconcepts=true spantype=section suppressempty=&qu ot;false>Physical Exam</span>
Pleasant 39-year-old lady appears comfortable no acute distress. ECOG performance score 1
<span class=clinic alNoteSectionVisible id=[id number] internalbreaksection=false& quot; originalname=Genetics/Molecular/Biomarkers recognizeconcepts=true span type=section suppressempty=false>Genetics/Molecular/Biomarkers</span&g t;
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
<span class=clinicalNoteSectionInvisible id=[id number] internalbreaksection=false originalname=Additional Labs, Imaging and Other Studies" recognizeconcepts=true spantype=section suppressempty=true>Additional Labs, Imaging, and Other Studies</span>

<span class= clinicalNoteSectionVisible id=[id number] internalbreaksection= false originalname=Laboratory Results recognizeconcepts=true spantype= section suppressempty=false>Lab Results</span>
<span cl ass=clinicalNotMer[facility] HospitalcroWysiwyg id=[id number] macroname=Recen tLabResultsTable parameters=OptionalFlowsheetCategory:CBC,Label:CBC spantype="macro title=#RecentLabResultsTable(OptionalFlowsheetCategory:CBC,Label:CBC)>CB C<table border=1 style=width:100%> <tbody> <tr> <th align=left>Lab Results</th> <td>06/11/2025</td> <td>03/11/2025</td> <td>10/09/2024</td> <td>08/21/2024</td> <td>02/23/2024</td> <td>12/22/2023</td> </tr> <tr> <th align=left> CBC</th> <td>
</td> <td>
</td> <td>
</td> <td>
</td> <td>
</td> <td>
</td> </tr> <tr> <td> WBC x 10^3/uL</td> <td>6.3</td> <td>6.2</td> <td>
</td> <td>6.2</td> <td>8.1</td> <td>7.1</td> </tr> <tr> <td> RBC x 10^6/uL</td> <td>4.57</td> <td>4.21</td> <td>
</td> <td>4.29</td> <td>4.34</td> <td>4.33</td> </tr> <tr> <td> NRBC % /100 wbc</td> <td>0.0</td> <td>0.0</td> <td>
</td> <td>0.0</td> <td>0.0</td> <td>0.0</td> </tr> <tr> <td> HGB g/dL</td> <td>12.4</td> <td>10.0 (L)</td> <td>
</td> <td>11.1(L)</td> <td>12.4</td> <td>10.9 (L)</td> </tr> <tr> <td > HCT %</td> <td>39.4</td> <td>34.2 (L)</td> <td>
</td> <td>36.1</td> <td>38.7</td> <td>36.3</td> </tr> <tr> <td> MCV fL</td> <td>86.2</td> <td>81.2</td> <td>
</td> <td>84.1</td> <td>89.2</td> <td>83.8</td> </tr> <tr> <td> MCH pg</td> <td>27.1</td><td>23.8 (L)</td> <td>
</td> <td>25.9 (L)</td> <td>28.6</td> <td>25.2 (L)</td> </tr> <tr> <td> MCHC g/dL</td> <td>31.5</td> <td>29.2 (L)</td> & lt;td>
</td> <td>30.7</td> <td>32.0</td> <td>30.0</td> </tr> <tr> <td> RDW %</td><td>14.90</td> <td>13.30</td> <td>
</td> <td>14.10</td> <td>14.70</td> <td>17.40 (H)</td> </tr> <tr> <t d> PLT x 10^3/uL</td> <td>299</td> <td>340</td> <td>
</td> <td>321</td> <td>256</td> <td>282</td> </tr> <tr> <td> MPV fL</td> <td>8.8 (L)</td> <td>8.4 (L)</td> <td>
</td> <td>8.4 (L)</td> <td>8.9 (L)</td> <td>8.9 (L)</td> </tr> <tr> <td> Scott %</td> <td>59.1</td> <td>60.9</td> <td>
</td> <td>60.3</td> <td>63.7</td> <td>54.5</td> </tr> <tr> <td> &nb sp; LY %</td> <td>29.5</td> <td>28.3</td> <td>
</td> <td>28.2</td> <td>23.2</td> <td>31.4</td> </tr> <tr> <td> MO %</td> <td>8.5</td> <td>8.5</td> <td>
</td> <td>8.8</td> <td>8.6</td> <td>8.5</td> </tr> <tr> <td> &nbs p; EO %</td> <td>1.9</td> <td>1.4</td> <td>
</td> <td>1.6</td> <td>3.8</td> <td>4.7</td> </tr> <tr> <td> IG %</td> <td>0.2</td> <td>0.3</td> <td>
</td> <td>0.5</td> <td>0.2</td> <td>0.3</td> </tr> <tr> <td> Scott # (ANC) x 10^3/uL</td> <td>3.7</td> <td>3.8</td> <td>
</td> <td>3.8</td> <td>5.2</td> <td>3.9</td> </tr> <tr> <td> BA %</td> < td>0.8</td> <td>0.6</td> <td>
</td> <td>0.6</td> <td>0.5</td> <td>0.6</td> </tr> <tr> <td> MO # x 10^3/uL</td> <td>0.5</td> <td>0.5</td> <td>
</td> <td>0.6</td> <td>0.7</td> <td>0.6& lt;/td> </tr> <tr> <td> EO # x 10^3/uL</td> <td>0.1</td> <td>0.1</td> <td>
</td> <td>0.1</td> <td>0.3</td> <td>0.3</td> </tr> <tr> <td> BA # x 10^3/uL</td> <td>0.1</td> <td>0.0</td> <td>
</td> <td>0.0</td> <td>0.0</td> <td>0.0</td> </tr> <tr> <td> IG # x 10^3/uL</td> <td>0.01</td> <td>0.02</td> <td>
</td> <td>0.03</td> <td>0.02</td> <td>0.02</td> </tr> <tr> <td> LY # x 10^3/uL</td> <td>1.9</td> <td>1.8</td> <td>
</td> <td>1.8</td> <td>1.9</td> <td>2.2</td> </tr> </tbody></table></span>
<span class=clinicalNoteMacroWysiwyg id=[id number] mac roname=RecentLabResultsTable parameters=OptionalFlowsheetCategory:Chemistries,Label:Chemistries spantype=macro title=#RecentLabResultsTable(Optional[facility] ategory:Chemistries,Label:Chemistries)>Chemistries<table border=1 style=&quo t;width:100%> <tbody> <tr> <th align=left>Lab Results</th> <td>06/11/2025</td> <td>03/11/2025</td> <td>10/09/2024</td> <td>08/21/2024</td> <td>02/23/2024</td> <td>12/22/2023</td> </tr> <tr> <th align=left> Chemistries</th> <td>
</td> <td>
</td> <td>
</td> <td>
</td> <td>
</td> <td>
</td> </tr> <tr> <td> Glucose mg/dL</td> <td>63 (L)</td> <td>
</td> <td>
</td> <td>
</td> <td>
</td> <td>68 (L)</td> </tr> <tr> <td> BUN mg/dL</td> <td>10.0</td><td>
</td> <td>
</td> <td>
</td><td>
</td> <td>10.0</td> </tr> <tr> <td>&nbs p; Creatinine mg/dL</td> <td>0.70</td> <td>
</td> <td>
</td> <td>
</td> <td>
</td> <td>0.69</td> </tr> <tr> <td> &am p;nbsp; Sodium mmol/L</td> <td>140</td> <td>
</td><td>
</td> <td>
</td> <td>
</td> <td>143</td> </tr> <tr> <td> Potassium mmol/L</td> <td>3.7</td> <td>
</td> <td>
</td> <td>
</td> <td>
</td> <td>3.9</td> </tr> <tr> <td> Chloride mmol/L</td> <td>107</td> <td>
</td> <td>
</td> <td>
</td> <td>
</td> <td>109</td> </tr> <tr> <td> CO2 mmol/L</td> <td>28</td> <td>
</td> <td>
</td> <td>
</td> <td>
</td> <td>26</td> </tr> <tr> <td>&am p;nbsp; Calcium mg/dL</td> <td>8.9</td> <td>
</td> <td>
</td> <td>
</td> <td>
</td> <td>9.4</td> </tr> <tr> <td> Albumin g/dL</td> <td>4.0</td> <td>
</td> & lt;td>
</td> <td>
</td> <td>
</td> <td>4.2</td> </tr> <tr> <td> Total protein g/dL</td> <td>6.7</td> <td>
</td> <td>
</td> <td>
</td> <td>
</td> <td>6.4</td> </tr> <tr> <td> Bilirubin, total mg/dL</td> <td>0.5</td> <td>
</td> <td>
</td> <td>
</td> <td>
</td> <td>0.3</td> </tr> <tr> <td> Alkaline phosphatase U/L</td> <td>55</td> <td>
</td> <td>
</td> <td>
</td> <td>
</td> <td>50</td> </tr> <tr> <td> AST/SGOT U/L</td> <td>29</td> <td>
</td> <td>
</td> <td>
</td> <td>
</td> <td>18</td> </tr> <tr> <td>&amp ;nbsp; ALT/SGPT U/L</td> <td>25</td> <td>
</td> <td>
</td> <td>
</td> <td>
</td> <td>11</td> </tr> <tr> <td> GFR estimate mL/min/1.73m2</td> <td>112.2</td> <td>
</td> <td>
</td> <td>
</td> <td>
</td> <td>113.6</td> </tr> </tbody></table></span>
<span class=clinicalNoteMacroWysmercyone [facility] center id=[id number] macroname =RecentLabResultsTable parameters=OptionalFlowsheetCategory:Tumor Markers,Label:Tumor Markers spantype=macro title=#RecentLabResultsTable(OptionalFlowsheetCategory:Tumor Markers,Label:Tumor Markers)></span>
<span class=clinicalNoteMacroWysmercyone [facility] id=[id number] macroname=RecentLabResultsTable" parameters=OptionalFlowsheetCategory:Immunochemistries spantype=macro title=#RecentLabResultsTable(OptionalFlowsheetCategory:Immunochemistries)>&nbs p; </span>
<span class=clinicalNoteMacrysmercyone [facility] medical [facility] id=&qu ot;macro_[id number] macroname=RecentLabResultsTable parameters=Optiona lFlowsheetCategory:AnemiaLabs spantype=macro title=#RecentLabResultsTable(Op tionalFlowsheetCategory:AnemiaLabs)><table border=1 style=width:100%"> <tbody> <tr> <th align=left>Lab Results</th> <td>06/11/2025</td> <td>03/11/2025</td> <td>10/09/2024</td> <td>08/21/2024</td> <td>02/23/2024</td> <td>12/22/2023</td> </tr> <tr> <th align=left> Anemia Labs</th> <td>
</td> <td>
</td> <td>
</td> <td>
</td> <td>
</td> <td>
</td> </tr> <tr> <td> Iron ug/dL</td> <td>49</td> <td>16 (L)</td> <td>
</td> <td>94</td> <td>60</td> <td>18 (L)</td> </tr> <tr> <td> TIBC ug/dL</td> <td>368</td> <td>410</td> <td>
</td> <td>372</td> <td>285</td> <td>338</td> </tr><tr> <td> Ferritin ng/mL</td> <td>6.42</td> <td>3.88 (L)</td> <td>
</td> <td>5.37 (L)</td> <td>15.60</td> <td>6.10 (L)</td> </tr> <tr> <td> Unbound iron capacity ug/dL</td> <td>319</td> <td>394</td> <td>
</td> <td>278</td> <td>225</td> <td>320</td> </tr> <tr> <td> Iron, % saturation %</td> <td>13 (L)</td> <td>4 (L)</td> <td>
</td> <td>25</td> <td>21</td> <td>5 (L)</td> </tr> <tr> <td> Vitamin B12 pg/mL</td> <td>
</td> <td>
</td> <td>
</td> <td>
</td> <td>
</td> <td>778</td> </tr> <tr> <td> Folate, serum ng/mL</td> <td>
</td> <td>
</td> <td>
</td> <td>
</td> <td>
</td> <td>Folate greater than 20</t d> </tr> <tr> <td> Reticulocyte count %</td> <td>
</td> <td>
</td> <td>
</td> <td>
</td> <td>1.73 (H)</td> <td>1.39</td> </tr> <tr> <td> Reticulocyte, absolute x 10^6/mL</td> <td>
</td> <td>
</td> <td>
</td> <td>
</td> <td>0.08</td> <td>0.06</td></tr> <tr> <td> Immature reticulocyte fraction, %</td> <td>
</td> <td>
</td> <td>
</td> <td>
</td> <td>10.70</td> <td>8.00</td> </tr> <tr> <td> Reticulocyte cellular hemoglobin pg</td> <td>
</td> <td>
</td> <td>
</td> <td>
</td> <td>32.9</td> <td>27.9 (L)</td> </tr> </tbody></table></span>
<span class=clini calNoteSectionVisible id=[id number] internalbreaksection=false originalname=Surveys/Consents/Other Discussions recognizeconcepts=true&quot ; spantype=section suppressempty=false>Surveys/Consents/Other Discussions </span>

<hr>
<strong>KEI Claire</strong>
<span class=clinicalNoteMacroWysiwyg id=[id number] macroname=LocationPhoneNumber parameters=Label:Phone: spantype="macro title=#LocationPhoneNumber(Label:Phone: )> </span>
<span class=clinicalNoteMacroWysiwyg id=[id number]" macroname=LocationFaxNumber parameters=Label:Fax: spantype=macro title=#LocationFaxNumber(Label:Fax: )> </span>

CC: <span class=clinicalNoteMacroWysiwyg id=[id number]" macroname=NoteRecipients spantype=macro title=#NoteRecipients&quo t;>FAX
Kimberli Enamorado MD (Referring)
John Avalos MD</span>

<div style=text-align:center>
</div></ div>

<div><span class=eSignSignature>Electronically signed by Wiliam CHOUDHURY 06/18/2025 16:12 CDT</span></div></body></html> * Med Onc Follow-up Note <html><head></head><body><div style=text-align:center><span class=clinicalNoteMacroWysiwyg id=[id number] macroname=&quo t;PracticeLetterhead spantype=macro title=#PracticeLetterhead><img src=data:image/png;base64,pTRFNt9FZsbWWTOOQLsIOjBDMRABVEDbZOQOKZU9Wc+UAAAACXBIW SXJMW3VWRVPs RHSJz3dOVQLmzbZPIHJYGr8P84pLcZbi8QwVachcXEMCFUQRX47vWFjo4B2NGCqA8haOGZtk94sYIjuR BTLZQ5cPXJOMJroVIwqN TN7UzVycmiqNNHtQc7uETt1gY9kmCL1JWW6pZllywu5QIDoYB3gCGohrmflYUTkVwTlzAe0pDO9kc1nF BFpJrQfTX0VLUItbjHxC n6pRPPhROIkSkuzOPL3TZC4WVD4DPPeZDTpDvE4ArVvNWTdNpCwFrJnTYSlSENsAEXjFtH7caYgKeEAY mE2bBvbnklqTSA8Sri5y GS1Uw50m0epqnQnu5RnDnC1PTlqMWKaZiDcchBiDGO1zmQswG1auxRsNiG2nuHsIrMhi9DgtBA2cS3lJ JEuFomoGu96bI9hUnK2e Szgnre5tNM0Iuo2qSQ9Cr4mlq9eNW4iDZ1yt87grVAsCxAnWY1fTGzkfK0iHlQrSOPgaIQpSl4duZPmu N6suutnETXcVCatxANcw KJnIQ6lSrUjhT2xggC2uBpleB5jbC7kVZDxuAXaBy4uckJyPGFySqFiG82wF7Avf1Zmk6rbiN8lFhQxB sM2nEerxlu6gBRVZX1vn QI8lXweW22yWdXsv3JvOoVbmE23KKZaDZ9jI20pZgLhtM0fqoB4m1WVlzJ7Pup8rHS8Yk7qbl5tQV1kK K3dm90srLBhQqEuEZ9yF LhcPA5QATIabOCrKQE4VU29KyTpnI6kFvMxUDC3a2KVz01jVZPCIE2qZKNTzI60j5Lme5VgAcZoNGRdL XKzpW59d9GpDBVyhA0iW hKcMTO2BGLacHF0RyNtVjKgRQDxAmbEICI2Lng2FyAoFVR3VDEeLPvxvAuXm1AdYaoSAMIdBQNjIZPfG OHnPAF6ZQYcJfIxXQL1H qVtQlC8qFA6IZE3PUIpcWKWHKDwMZBjHBGuPADkTNT2BCGaKeIeCDJ2TuZwRxAtGvbmb5PtHDP3MpeiA GatM0PtSmFhnQibxB0gu H1nJzCfcG2aSM2wZN3yQdZivG0bXJ61AF0bhMIiE4BBXM1iaT5zFzlkEVv6ILBeGwScKZ0yGTSlYJH4E qokOZh5UT97XeR1HBYzP sCqPMHrNCkoeC1WNrCzD9NxNV77DSQ7HfxlsW4gkKJ0EHUfCoXyDPXnMxzzQz56KVV7UAc9SirxKQAxQ jGnI4L6TOKlRfL5fWLZD FbPoydlsD9eyIZhO2HxNX32RQX9IvtdiU3jyLG7VEAmPfYvUYZvGklzLi44GUZ7VVp2AmruTZNgQmWwE 1M3HPGqSh9aZWNju3Fwd 4ofpAtKa9G9xHZdyIZlG7GkuR6gug8xIFTrMqiBROu+WRwvZHO2wIt+gB0eKdNoJRa7KfM4B4D0BBQfY LQkRUN6RBXaKqfNWDH4V lXRKuWiIOksahXqZmheXxS9I9IySpmZAAm+SHqhyNflpW0nvO1sNrJjM2WeRS21FG6jULJ6e3XmXuW3p T3aDP90CFrooJ3kjF2pP HJkZjpTZXE+WVgaLQR8pDmra4CBgrQ2CDL3uK3uMVCvcvLsoGMaYxHdcHR8eGteyyD0QJ2aKXdUDMP6k YPdxTujBzztKtKpOUN9P FR6CDFlTDWnUH96UCz4QYNvGEdoHGWvRVA9HlCuw4CAldR3s2hwrr3dYqJlRw6wES0qV5NrUJkrERbkR T2wCsleRVPng9LIqrF0i 34xbSrlduEAF1MqwG8bUKTbTkSxFVdbxQ8peU2mANSiPyOhAT3sK5nzuA6gsZsfMl9qNE0cIEV6V9NdI wO2E2rqfU3DYmkep4Rkk nk+UKpnczCpRiTha8BjiGY8jH7xMtA8F9DlGqjWYQN+YRsovRy5gBItBPRcVcI1K3xcMKNdWVJhQA0nW SJyIj8+lxO4AARBVfIUK EFUeJztnXVgFEcXwN/K+aN6bDW4MZTshzIKJk/uXHQzvPyeOMAqQwjvcj0HAQnyWAAhYPzvJ9ae/HZ3v i1PobwmKyVEgoL/uz92d 97Izu6+dBqzYiQqJNNlRFryYYXggOc0ZMuLJtFvlJGlEGoYcUQNdFSaMCinXKfkQOEVlvDXH0FHhArrz zRwVNMAaTUzONgiiB9qO mD+H6KKnQk/ztbGvKfV0qUFakYQv0dUSM2iqq04QNvrhBLBw/eiiK8dUC3JCnSb2whMBk9k1nt6PGIzB QNJHfXQigObqlEVks4t/ eWdAxZnFSgEFOP3bYqT44f5i+qujPeQB6U0JJl8NnLH0pNJkw8AIBOfJXDVgSxUaJaX8umLPcouFfx8s QXLXeiw8xYLRClbKw6H1 4TXNb10N0OScacKbz2v54bpDbEtngVR8wDUPCIHVv1ZFyDvQHdVdIAGc+LEEumob7+Z+gQAMP1hQObGW ylFh8Tq+nJlL0Shd2MAk 3zd+8ef/YhN2XgDvBFkhpLTDBNxCGSCWDThrse41/oLf/5BkMSEiRPH//MOnDMtQ3hPWwahzgj+9bpXj +6ypNhoBo8o98U4DkXW9 7COEKAXfBvdTEq2kWjPABk0xnT2yX48yb6PioN4U5FTU/WizTms14//X15wHTuCmS8J9xwYlcMomgqUK IMvy4zoqe86yfjRJn597 qS/v/0eXKfqhaYZUKhcIDKvFQ8Lxu1fZMt1smOukOdubs7avtSqwP+/v7//tZXvgp3hVJ+48+bVr8ugt 6AAdpz4aNdjI+zetnvJn EaNm/jmfMbhHdIHtufoYqzGLLFtj0pRjU4DSwI3/XVFOq0Z+w9C65USTmVwMckYc9BMj4phpjJ4GiMSS TAYDAYDQRAkSRIAHMdxC Gt3HWcLFtbRUd7ME3hRK42rCEBo5tKGj/ykxKGjDosxgL1KTag6gRGjdlg+djrL7NdIINhOWZEjTSmwZ F3INmHZLiDDMktpQ9TQw If2n+3EMf9+iMmE7iowx57liUMnsl5Pq0Mz1HeFldeLd7Ly77B/siHaPj1fRZbfXXvrqGr8/9cxaq5Yu Xws8fNj+9CjzdCUM6lhW pOkKYNWm/+FRibCRG2guo02/+W9S4oJcd8PDPM3AOknUxKti13Yq8P2drLLKeDQrkl6+QcQZz38kkwlM dbvSmTMUMIbXnv0Xie1r buXSIVg/a8evYV1R0vfg9180pRZEygONYiTPo9jgze8te68jpYUcMiyPIJmRSEST1VyP9hG5HqgzUrUb JuoKTFDaBZZMfUmD1iof 6PAeYtw7fG9eVHaWhv1hmFi0VY5q563ktQN4OtlmYp3fEw78QJ2mh60d+Hi9UNry/9+BqR09ep09f811 j2Ly6DrmOTzh8/fth1/e Ax9iG56mIygIYcXUzenGPeT+/l3eJy6bpjjk2mFmbQDWufkmmlWjNtQ8aggsqE1TMimdMVAEWj6cDOyA jSUhnwwcMZOvDYs6HeJS +GP+o4e6+zn5vVGGqlgmJrGigR8wV7zKi3Nkkw81vkAztiSu2dQ9Pa7xrDe9S4eOa3ziLrYmeJu5H96i gdVU7WURSLKzxpoKBGd4 XzLeFUoW+7SxYsFicXHx/c4nPrx2MwtSMmdPp9eJHn64noN1blUxxcYAzcIFylj31QvfpvcTMVxLhdsN V0NiHZoTGi486LEEJmbw 16O5WFmPzY1koWLo0s3k8Kj0rj1XevU+W+AFRYGIYS+GTmqnI+dl3olaR5Vzn+X6KsIPkDG8SBIpqsEd L8WSkG0xNlAl0+nt5u9Q 4dodV2wb7YGlRPuDhrp125gR+gZctsfWxMEpwQ80JwcXy7dNJtpwJuH+a+Dz9lSMTGkMil1uvlInfBiW g449X8BuFAhGGqkqVElv x2ffW7Iyt8uXZbGr9dMTXZTVjXBwZo4HYDgZrVDeSa321+HRz9+AQHGJg2xH6TM1hf6BaUiZDTe9A3Y2 26GWunJ3W66W9XUJJJAZ zKBUhQ25THRD92dtxjS3teSxsgDiDNqNcSji22ecv4vpeeRzR13CcM5AjjIyz5Zpo4rAoTb5c6tp6fvQ D9nKFY68ycTt9yLZet3E uzqteKfFOY/GWRDTUm86Utpl51rk11VuANCoU0zOWnW1zqvH/4gvV4/q69vVKNCSm9Vx3UlX+9Iq1FH/ 6T21IYwFFDh5prVSXamz 783r1/nj1i/WIVBSExByMzcANZQdEYw3FDxj1Lqt34DgN/R/MLBCgsDqSmpDMPUq1+cVUjc2Ul83jJuM drZqiSRBxc2t4yJ+/Vfu XdStbe2f9g9AhEHrQymXmnCVy7DVBPdDo1g7NY6/uyhr15sN9+4WCBRKeY5pHRptJOLn1qPYvi7jbFWO gQYbS8k0EN9GJShFMY56 NHmMQrSqumFxOTNCFocBt22Zm7+/rKl7wORhef4logfaKAwux6rk75FrL8VXq8+3Xss292EEaHstobKT KFGI+H7RZBXOFLjFfKDq LpOAPkp1HCYu5aNUkm4z5e7aOh0pGcuEHOqbKAWoat3yw05WyzhNt6jzu7krat2oKylSVmglRxbWdhMg z9xfWD+vWCFhQGKokiSt HdwBACTHzFB/KNkCgAX3oc+vkYBR4fsjj6XCxrpgAoKxjAOMNruLHiZ9FIp9pBU7fJUrlArxlcF7UMZE ARAAAGERqPRaNSqPGWeU dgWQED6jnKiCPvRqAUSfzhZsrJN1v8M8cj+7MbSJFd5tWKbbtVq0PHwnQfxh7dNeMVsRlgFbK/wRYMVF jt7JfehUklMkZWgm0YyG 75y+aAgb0xsHx5tSMmnvM9Hac5r7gYnXcdILRj6KqzeaVhYwwzqcuMgXwHgJdOPLPmfcce8kdo73zxF0 8kwLAFTR4Dpes7MtHmzN +4/jNsfKkvb3Pt1k89dGnxt1brPXLXOhEUOvQrIJOPNwKIm/MV8cYp7qrKVSxufZPJAu3yMNT0RAHyyU 0+xUg0y8O4wo4Ecmoqsm 8PGje/trNyosGQnd4yURnnshEvve/AIKl/Bf+H5yFBxGREyOUCA35v3G8DtcG88t/y5e+R4Vj7xE+rnI 23enbPGOU1y4x353YwVu tKJVOZWgkutJcRi0nfn1cf77RKod1qgFbnDLuP7bLDL4bzMEFQDmAAkunuLuTkBL43+vhzLpqalxyckb t2y5fD+/S/jXpbxKtOle /pgIg6tNByi4LnvZ8vOschstCgUCTor1aq5ZO4/HX2KR0rS2/BKOAmNbZLCNPv7AUSO719kULn07fYhG 5bCfcuWdDtXrsFXunW/U z36/Q0vil01354/f/ZsyJmzi+cDH999gry43AjHOy7p3PmQbOqMpyhG0DyeVqf/fkN8OUCPSP+io8t6+ vSi5wVkgEfckxoW2pdtp 86E4jhv0Y6++xrRB6jL7jU0GISDNT5ZzBJ4bs0ARsYTpOKAwRqM/lcJRqljD5r+rs0ISDg93BFjmmRdN gpcHZymTZuBEGIRQghl5 XuDKZamv8rjE8p6JepvDt6lf/cr+/p90JMTKJc/DmyKzVDg43/HXF4eB2H9dsSEFdn367MPGooPZ7wZO AKjXFYuN66ZrJGfzM9vV vu5i+mpbdjm2giWs8fJ8rYK3o0KqlmIZP2UgojlQFkQHrk6bOcbe5OzcyrH2+timdICtlHFAvN1Pmb14 tCl8+2fm4Qi9ELe1cFYI N8YQ6baki0dOV7JJDHDDtWeJMTJixwUKqRbUQAsaVpoHl0wqEqBmt71hbakCFrHBFCAzGOyPcyBGM2QO /utARwkw1BLx0kGgq2K4 HpoIai2Z74a8p0bF/FmNXFEhnLqHeo8LZg21DeGuiuZbDch7lp9y4Lf9zeQeQkCFzuYbz0kOwk8cGR3C o872orGzw47vKvYxLo6x ZkvFjxI/OVy/513zs69bGxvytscJx6PrixDA5lt582MmTfxIAH/J2FwNSXuwia2ei5layQKY/62fauLm 8jP42jJn/0NRtbAwuxFC xnF942rLDqOK8lHAsjoc9M5W9WBVX7xIp6Pf9zI8An0uoS435qSu3aDKZOjer9bUPfSnwLkeY+UWzdvD i5bEBq11ukt+ccM0suI4 j5fYsbcE5x1POTDIRRy/mXczYHAYnLIp1x8i2vtpKzZt7ftXCWmm6J+8o4Rs1XOYY1Jjinhb1HzwKox6 SiyFUAC+04K5LUGuHEwS oqgVFUuHueYCdbS4CbXa2zhAYB7tbNcKACIFhGmlH+ChKfgt2cQptqPaonda+4AurcVFMu0Mbem+NbV0 ZtJa3gJaHBL/wsEZPyrV 2fq0LP8oftQfJ9PYE7iRdBj0R//DJQ0ueQLMwnpxucejTmli8HeKpaYKBCbMWBnwAnImYDRNRs3MnIkf Xsu09S8mC7HYeFOz2fXy d+7nsYiWrX9aLtqbyPxS1vKjXOZ7XwGWfGxSeGLh7JNg4Rm7qnsusyPUUdPX2Zc2BLuROoZGhf4Y1DIG 01Obt2+E1rKiAJ6Tu8fH /urnQZDI5xy567oKNa7iKvApJycPILZNiZO3Ai2An8+QzX6RduEy0UTcKDb78w4C5vj5gh67l1FIa918 0LMSqsyp4YR3xzSey+Xv 3n4OnQ40qT+K6KmVRrOHZP9JomaahSxycBuO+5PUGutxQmUCXFter7+Ngn2AOCUMZm9ReI54v/3BK39d WoFUyqCchR43POChvNa2 citumBHTKrOqr6N6bAJj70Ps5MURjEpUdU2TROicT8lsGfQ1Aed9SMrSyrhlE4d4kDhC+wzb8GafrQ64 rkRImnVp0ygIRjohQP0+ 3pd+5kGlYnvm56NYGzalaEAUr8XjPjNQ3tRAEKtg23trNZdWk1BRBKSiTWJW/Zxfu9IFxdPAuVaYnp6e e/OwPTQgmu2hz2Za0Yso O7EFHgjgCP/6WQSvcSQOg55dAQrSiV2cBatd+IzgYXRdE1pzPZ74qvH7+ej9JLrgzYyaBtJDnH8r9aSd bRZub5zv/b0QN+NzmMZQ iyR/SGyKwWf8OLgtkxRjMDvJfkG7M2fcc98cbLHio9VwxxJugw9FcCNhzm0P9UZGa4Hl965T/5IbOX0f +8+ruXAQI9sNOpUJvuG3 43BbaBP88blqyHbyJLZqFlIZij4j3aYEyBXC/dn12HJomaRz71g3l3yqDSmyLfqZLZmKlTi4nQsEDaJX hEiaLEILZyvCLvuvHbJr ywcUnLDbJKJfwjTniRHsgBrl2vaSfal1Ypduu0cD80djQbt6wUF4zHvxLcVIq2q0BlVH5XYWxKwBjGDH u6hpEgKqPC1Hx0PsFVNv 3P8wsI3l9rdeVwz8o/8Kqi4GfFs6OrBSCANxuNEZY6u+hYjDZrbbzrQzjjSDmYhbY3Gzuu7xLSjAapjS QgVIREsJOUPl9DJmPgW5 55zJYMwH5HpF1ubWW9JlVO+XTGWiL3rYwruzylGElNrLjuVKNOgu8jnkLgQZCwVrgCdvm9jKLSLS5U6B u47T5CE/yz6q/B6zBqbl NL9RdunNgbW8bV6eQhSkuPR28d3/0X9f8B7rdYXCXKfoQ8I3zX+JxTNLADhTLRzVXLeHUyvm5LQZizD7 5HHSnl64qUVmVqlCaFGC YsFbqN2hu9ibyuP5L0thqmlYQWRKVCJtlA3Sx6JSpZOGT2ARWJHSMxbJI1CsGtUyzB2UCb2Q4ni4aQfi mbGUXk1SVOLiFwWLWIZv 4Dz2Yjq0OtRbqtYqVJkxfDlip9hZMtzOfzm9n0dBauOCPyl0Ue7QtTDXX967BiTO15VNqjZnk4MvyrRt zNS+fPyLONZcpWK+axgh bTBWLfYL9WxKNSJMeYmlTtqyrJA45VUX4M0600PZ9h5RI/j62++kbyGLt6pEMritaFntuzFfLSCOTtRh hGRJ3l63Mzcup9hHbjCD Hijz2KwoCy7Q67QEgTCSiMWMmyht3AYhMkKTLAeT8bjwdfjwbYR87jgF6hIHM7kvbWcDHniieF1Q/YQY nTigOAa7OtNJv0Sv5QRg 06sCp37XzZagaQI+ed+O0iV96c8q/T46QC0bN2Gu7GLFH/PkTuWcas/Xtr3u06V364nVP+hto4hlVQvK w0dsowlbOKYZwlzpOFoR a6tPK8lIeEbEkflO0x62ia5bcfTNqPoJarTZgiZ1UqsWWOo+KJeWxpEcvNTTOaSn2OH6U5pq37HNVzuE hzE42ZPDIlCbFsYWG0Ti NrIMZ20r44SBNUfpxN81Es7c7la5I1HFQHxvNQX/zlA2AaxB8xCVPXksvsrDkAPast6BDJ6BINvKoFa1 gIgKB25e+Pp+SUmWJ4oo VZLxlQSl4VuRK1uOQM/UU6NJq2Hg9OAkqg2TEeZGoJtCGId3mkkbM/9wckJn0NuLVQRejbj5g9fh11sl VpkVZlfLCy053GW5+Tl9 VAQinltBUJx+unAYEj1I9EL6+4r1qZo0WMMcZ1HHRD3rHQq8fQYc01fPg/TvGJ0WJAnjFGDJDNq3yjHT xr8LuukJQAMUT7TyTLa/ Zq1rdl/JIFQbPRjtVpPUJZmr7//7rWKUa4NCyVg8u30T7IrHp4z2chQjcJESiam/pj66KB3egwtnT6Di EFPFo4CK930ieGti70Sd LmeT8B5mKB+X5sdkBrSYWH/UkAxvmjhlpduFb6MUvHisHRcNuDfbK54r5vQaTuxm8OKciCmwYyqr2Bjh 7Of/2HbB0oZDXCUDRPZW NA/PFzQRxWYv8QZnN3tvU7YJpxxmhSunhaQIpUENtYcWVL5+Ihv7Qf60d59K16RwI9EmPo+vc4UlDefI i3plg4oP1d5sXEZ7tsEQ Krnj252j+V5ntLiI3g/Peqzf3kXyRazqu4qQWm4kAePRP5xYBZIEKIUYtG7c8DfTODsm2PJl7uvGlXJU 3OLuSciWoklNM43Wr28T yAI6x2EpkGdSu/0V4d9djYvoPq0q5ejYDLzE618mBe0RdKk54pGhqyceZiT70rAd9x/xPoGtcwjv1Ys1 a5pz1a0ImTpEoldYQBgT 8bmVP1Wo35PZinYKiIs0CG447B1x/NB6AOmI6msaocU0Fl/673DNQdHYy6Ywmi0wC1X5qBZGzd7ap5/R 6yONHdqoFTXgtP8yjhvG pcZonUi5Blm2al5rbsbaXlacYlKH0xHKJLZbzU0uPfMitbx929w91geMKS5/hsXqaVQST8FZvLZPRDgc 9YheqLy3G0GXlsnx9j32 +EEVL393iXmgRhQJPLaIeGvgCRnQBe8riC0232SSCryK8dk6tEz2T7ia1KxdHAvJ2FPVYqRnQvpnUfgq EisTktiMlJGjxu/88/dP r6+CT23jQHSD2083erwrBlRivS21+md1IzyEZtmGgvzp1zvesIk0UB0E9ZpcYOJWG6dz4DaeYEJyA+q6 YirgtdWcyYX1618IRf7e ISX4uAfh6MKkhdtb6VlLDp35ATfjOHqhS27sFq75nUg8hwFFIzTQ1VQWHGbvhhPmEuq/ywpuQYBMt4S0 N+Nn/I48XGgsutsgBKvl ZAZb9Sb6GxsnlyOTXWiTP45/YAX7ZWH7tSKDwJTx7cOWOM81Dbz8Q816VDqj7t5wI9mdSAdDqKhYAp8k y+bFhHiOzxGlfrms7KxS evmsBqgZ9g0iq75Ckd1iszxY0t0fFWtiaYBD4CAnqZ34NfvDjgHNbGJbU7op3mLnXg9YVXgyyD1cIMQe RLOiHUtHkMU7Kik9I03h 9bimfvFqpslgEbw1Qrds5Ad5xkNCBtZJwkGHl3cSvWYZRNl7s0qlf4SBMf+UHdrlgssP0FfKWEyV0KsY MU2upTX34yZ+i0patXVu boh3+YYcPKjDcYjrebnB84jY2w/pAplzin8NDiR5bUi2FZ4g6I90qawqDEnA62OH2/CWsCUBrDCwkBiQ gJBkpxYqtFpxBWr+1YOd Wz3INlj9lnaqDaAseUJbjN7NnUVKkSlB2uMj1lIP87bV0W21/sxjr//SJPMrsHadqnVHgtkw4tNJNUkY 5HgfwRJkkKx+S0As6rvV WR0mZt+0/Z8hzmxAH0nUiUteCitbBT+MO1EFHRJgpWxFdfKvkawKBWDq9NLfF5sUmJLEFDf6Zr5tE2hV pVcVWFKGKywMJCTkwMAR aFsv8H4UICFMSmWz+kg45lqHfkOJbadYwbq5fRBExL0/EjEqUbf6pTTrxL9cgAWz1U9Wr9XcIX78x9IM LWDvVINNDZb7bfl7XJZk azRaDQaGIM+5bhYdgVYSQvj7Ir6iTni46nVeWSPClBKCOHZS8Qbbx2kEJoq3GR0CpDznoLwEnMDcU6tN GTLMNsVYy4YkwNWunwKF DhM5wcVCsIXK7RD92zy8zjsYSYTlSzb1Ud7Eue+ykiPeh1B3ZI/ScDzrotr2H8sOCVNBeX0XqHk5c21/ xWlcLjXG3PGoFkGUaKHR sOlYSPnYKpyRcxCtvwjKxYYkAx9EhFwtLPG2Arcl2oxOFb8q2ADk1FW+VcWWWufRhOYCIc1Z+0hjmEQQ ludgsWukNSvGg2UWKHBV RZSKTrbrAebnmQ7vvswLIYR3XCQSoWNxiLOgRvkuef2LoeYffZrfsfuHOzZpcFhUA5b5761f4ghcJwiA qrrMhUkywBBACAAApycu CNVZQksaQGsADZaQjb6L+egERfQry6RxxKnSJ18F/cgnYaoXkfFckijfpc1/RCDyGtgYewEE41kJsjbx V80+MThvC0ERgJuRq2gD X57E2nctquUlrZrOhHnre55B/zKTCrnFdB5oBEBc4vHCyGoZNA/Hw9kqhv3bz7wkPUoa7aLNtciXGTTj KXFIysKxDHm6INi5RNbi a5NLqmAG7SzELTzM7l6HTn0LJs3xjs9EoJ4VErdVVNdYjL2oNAzim5byyim2Gmq3vcQQIrkA+tHCATGp xHqHAWIpcCyYNHGAQRCA NhlL1ycfkJjZYwBoQKerIeWJKDmLIdobQw3T4aJhwSUwcW6awadjlHJqffx59mWa0oEkBBUDVBfaFZ6O 3tWMxpakVSRMxwj8NaRU LnYPffWyjfc5x0AFKE8VEy0v9jPh3NjHjA04pkS/QwFOcxFCWH4qZUB6vye2PvPxp2UOjGRlDhAVLACH VGjrsTGjrkdqmscDGbru aWpXC3GiYqVU8wSX4kWtUMrqH4xpu9c80zF3+/SosAq+iPid5bEP44J/kNrHKmOrjBq7U6OdgEa3TEbg iY4/MxiCwHXuIJcCP5wm QACOTX7GyD/S31g/c7sjIIPhErEzf7q1Vrt7Wq5rnEYxSkGEXsOhdEq9sTDY9qcfHNSCG69MNYGQraAA 7TQuPUrhnp1/Bo0V7a0x 3+hHbsF8ruwRu65pwN9jNwSc0N7b6jNVGOvppm5aTXpr38+FaPXAfu++UzUOSFuYJcIv1B17CeN+nWLr z95XWD+3hE4gBdUv+U9e /VEAqEg+xC955w1d6aWKnDgbe5vZoEtZAS/R0pzJr5caXLr51MIxKDgx7GWruKlOssHfVDgIAEk1Kabb jTuHI4icmPS5qfASgux3 jq6lNUuKg91MVTY5iaSiCV+ApG74usxh8Ke5KU4Gph/4vWr4apRkRrXCGjc6whERVDmSV/Cp2WcZSlZt VNvup3uBgGsiaug1bHdI OREHE2TEfi0BqYNaAw62jh1o6f15TDPEonfCmsGQJpWeKaK9dr03+eba56DgeG3oQGYNsoxfkeOMaMqF /9pe/favy0mwG12g76iS MtmLMYDBApQJsGn7qpOOCVeGvkHACtn+3StibcIyOslOlu21nCTW8A1HNlVWTFiy8Ff/dos8uNUSRHSB EXyIuPPS36zCA48+UT88 yrGdnmv0P4mIXlzleXfuX5bWqrcz8lUwi3cRbmJlV7+43Rsu+yF89HVlzmezri5Xhg5/c3sPsuGJdsFD mOPc30SFkSwa+Z+mF34W ViXPTNILn1GWV4ADhOz+14SLnwHaa1GhJQVSVETROt4QBVETpswRvGD9nSDQXAKQsS//kWxq12nAZiKl of4RJ/GhZVPcfx8RW9pH I1aQ+b7pCMfxh8KFaocpxgTCqPVwFVwe2YmzgmwsYAK1WX3rR/uCxPikFCkqRykbBKsqtkQyWxArwPT1 EKCAKEYOEbyIso2/Iz8Q Pwqv8Q6dqJOOaLXksCve8Y/a8vv4na5ch8QBtStVDcpPNC4eq8QdiYRIcHXowx8bPgIq/FSyBgArLAwF kQ/frz0l1+jw01FsfJTF nSYKMrtjrKJgafMMKHdCqGLdQCoTj8RFKk7DgdgkyWLOKGJtg2BRaCGaJJDRPOFYrPVhNW6Abdxejoxx vAxAYQvEqgYP4pX8s9G5 VEKfUh1yEZKKsMUfGPPYHxL+Ex3Hkymo51dT7/8gnE4X3XRS0HNlUgRCdr/DdHtVBBffeFtPB8iFHJDe MY0k6pdmUzOti83xepzW nmJ4bifrHPvDCNQayjHgVWQ0LCEoBpI2AUm4ee3unWfmdxOnMqk3INrjgnTXPNGslleGSuUl4pcire00 hxE7Vk1+tPFlBqwwsIUi MGiMX4Nd7vG3In1IFth5Yf3ARl3KGaHrbRfn14O1rUlCZlBVN1p4lVO8YjosMjQAPOzU+fJI26M/mHix CmTANFONBfAQmIPId5MA BRjrQRqnFD9nIrTCiQsoCVagBtce/++/FeDt3/y9/MYF0/QaYqIQAsAIdfdq+xVLdRs9MK44y3UubLoc ACy0eLwGKnIooHiM2VYQ T17Wu/ioc2eoq2hRSe0iRODALwYATZaA4Wua9lar0nlpOc0Fpct6jSu8MmBAeCsaNV1iOAW2wKUHdCx1 +FA8dlKICMhnhTbOVAUa DjiNrjFFKNLqjOyPQE9lT0lBap1elh8b2v+Lwp35GJzD5NRooNM6t+UrkghX7knyaUrvMGuhEPDY2+rr RRodHTjJFLCYKCVCvGrZ 3Gu86T6ZELFoz1+n3czoxOIhSKiTsi4ouQX7b+i1+t/MqB0et4/MAGVURfBMXoDSQpCOFuBgd7SCCrbz UDQqHHjeQsW+amsQ3XsR h6ssDD/MFat9Qe5+2yflCTUKy34emRNNBuRSjbHZVwnFI/tkCkWz87Y/N2ycdI4r1k7/aNt0Uxgcm1E3 wnFNHBxL165ox7zOFOUA wPE/KDbcLTULEuGvPoLlRUGUFtdIBBYUoFNSFnFjcMPKSDYbfl6HGXPnDBFYUquZITZAiJQWMfQrfNCW DOVagz1RXAXsNRHUFcqF JJDXrSTLCsGlqYOAIHVcby66W4/Y/3yUBuh4+rHFjXPvBzsPqrKV7Pg99UzD6yqtfHdx3McLKdYh8Bi6 jw30fm0+/cFZ8ITcQyzH FGmhH7XBZFW3FT1pKgJHgfviBJLTYJbn6tA+c/g5J60xawe2vq9C1aFdkofNL5RLLLAbo3LyUr9fy3vJ Vk4WbBps278mwDImsx0g YpcOn2ovpy7jgztvQfi1sUsu1lE1+kHBg93vLFz5lThvNhlrRe1zKbJXUL0p8z5qLm68VEAMa+wja063 e3Er0dUARGdYiLO5ijkW v3t5jq2w1Sy6GxXH467ypb9K13RSKe5OOTha0swGBVYda1OJgXhQs81fmnXCGKeLrRWx0CjdKlzQYuM5 HvggEgk+jslxvyHSUxMn Hx24fKWczDu0iQck7gRELeIQyLgiGpdhxYoAz5TfEuLL20ci8SsgT/oDeogLNfS6I1pnOOOa8d4PBnSl RWXigUv8XGjOd0JJG9bt sLaClMQ9+6i96mm6+XUbdtNHXsg2PlszyyaInWZOD6lDo156NbBOkD9+PV+vxjvn6vnyulNWlXQz8SH4 uCNbr6r5zLV8e483VEYW 8SHM/V6/ZGDh/zK+cvw5e0ldn9cLVj/k2pSnRRSg1xruFZH4U++6dS5c+Hyo7/7wjKYQpHJpl4+esSI6 RnLG0giDDBAfIVT1TibA 96/Q6eO/J1nQrDWnflAi3ItebRvUghiJtiTs8RV8NOzmSEqmnGwqFieDZbCkSxWWz+PHVOcWFOmTeO/a J+bm/vj+ZiczFrQg5FE8 ERhYi1xl/8xblfi2n18xWki69B44OXL48PY4NtbJq4gcDL/Ln/z+g2/3X/mLZeDZypI4z7dmT9o73nmy XG/r/iwO1TG35/hA5o8W k39WtNJ1cgYl9Z4ZqCux8la8BYSbDSEdQx/e/NjMgWj7jo3Bs3aYt5oMbKgmJcYWxN3hRXXxMYVRKAHu Rxgb4ggWr45nD7gScb6w StQPKc3ftTM3sFGrXKEz1w7/QpBFNFRD79c8tBhfKqsTgROk7y2U+LdAuaJdGp1wiMCy7KGIx7voNGs+ wGDjQRIdAxCID2o8dvaa iQva6IaT8Sb6hNqzHfgh3hvYnOSEcVDKB6HGjPYi0qj2gRLKYMWeVVu22FZMiNJIT2+eLn42Gp9FVImT Py9jca5lHxdSpbzXa2+R BuzB6MFZK313tHBZ1QcTjmzScB3dNiQrt311+8x6qKUtmgEzk6e/dcL654BTxdEJcxR2No2XBluO5XIG L6xu0FpGLybagg9sY6Dh lwr1BML01QYs769tTTYxc7TdziHkva+9B0mTa1Tw0/f/fP49vHQApx0uSrOJTvSjbc16RVEtrNnsFwCy GkzqcxSIXIcd/5ciEqtc qp5OAMknby+rg2794HjJT+NWhMeHvbg/w1pJnuJeVPIj0j0al7a+Edcz3XbDQB6fjgYKEjqKeUxdSwaW YjQuFTL6tgYGlGwgqzJg wVLZs3i8rlBeuXJltz5adYTboh9znyCQN0bAAmJ5Sr6Mi4yTpa6m/xcJgceOQ6UzXHz0+satCbd8rMof IJ1LIWDIQruRRSxHG3Jy lEWvXBhSWQy49ARyYIvI4ogxMVEo/g6weLQEw5PVvo5pmBAa4nfdLQVuPccwLFMDqYk4zc9k8pcuFj2S iCo1eYd1cbz5vijSO+kj 5BVNOWoBMNDZYfn4qy2QnTvol5YDe3DnNUabwv/sZWv0FuR0eEz1dw+cd7PHs84H3PuSEVwaGR036pxw sJJ8g7v+m9i9AAdogrWX 5ejOkAdKMvcz4U/iehEo019/0kZCM2bwz0qB8mgJHQWWO1k+9cJCAuZvWRNKOuRj5wuCtbh0+ClL0TeE PNAg0H/0rEBsNt2ovPvO Vpwb12uuw08pNbbaNtLxEqNeakXagpSs05oMNDz07nCH/7Ytr1v/359+x8SEFmipNGGO2fYyPLHFmJkO 3Bpj6rSrqk4+4oJIb5Mn 2XrN1vXGCtZ4OUXFmTt3fQBoTgUcqzijil7tPZLuAtWzTO+/D2odqlc6cWT6JYnQIsMys74VisCBcCPe p81a8nhHWPpCv/euZOcn AdnmsZxfksVmdtfoqS4a6ii2NKfi00/sVhcUFE/nAYIEbcPWw54XuLQ4i8+rJ2etKE8O6rBhPMCDBs8t SHnQiwuFgAQBJGWlrZm9 gbQsIZX7GBc9+p1a/LNTFcq0Le3co4+JmCKBh2caMm/4bo6Tv9tUesnfTPKemyWAsbLtjgM2Bv3yy0JA 6ukUkljGc80WZamCOTrY APq8owVJ3WMwtNh8mnLsh7wU52NYnlEoIVM0xFt5w8xWJu0aPQUogLjKE2yKsu/f/yaPO23OhMZhm98Z Jpa2pJF0hz55+aNm+zt7 By04aDeGBchNWl/Jp9tsQqyI05v2GPn8JCtadlyCaT3hz9+AEDcfWgGOC6fPZw74ykq8BYsqBoq0X14o 08xvro2f35BIKcNCtln2 DSt73ciVg3zmrf0M/XNN/C+K1bOz312h1scwNlgF0qVs8HTfD9PStOOQm29l4BR5qD2jp5q+/v6+fv6V s8YZNVfCb2kVk8ArjdDc s70bjKbbvpJI+nz01rh5DAyUsn9ZIQegNtIxOFsFapfz7x12SkSl4Wncpr3D5/Fsk5VELvQK55umujU+ 7HOB6Huyiq0Ef7l3EtJm RPU58GLe5kMKpH6zRqeO42Uhr2lW1ciB/f4+/pt37rN/OCjhw/3kb986a2dRPXG1VOl9Jva9/j7+u3Y/ kf+0N07d/r7+yVf1KnDu Mw0N3TiAonVf//y5Uvzg+VJhHV89LoPXHXaGcsomdixl+3w214gwXw1ssjh6sQ6UKwFrS/t2xBCTG785 LZW5Bemkka0fAOSCrUZZ jeo1mRvV6E80ocUxUf97eBl18bOdVCdq/utv6/f/2m1Gd07wnTCGZ8gfI35JlC4zjKxc4tBQKUsE/TyZ Kphm0U9v/Zsf1+/7p27v Ot9nfJSbZWn2Rsn6/AWyOsqQyTuUXCfFMOcGrl5bE/Rt1e2WPiGmJW26IpWxVvIk1iiam/fzvFT4vcwl blJUsDSjJs62eX3wPS++ snf12/DXr5HUV+2dStf+O167dWg8MUrbwgJ80+RdBe78y+jXbdKHtq25eAacfUdictM4Oi2jrTFXDdz2 uh5eeAOAJ1mf42dLvH5l Kx1ogCD7Zg58OJapGOfcfOtKoBX75MO0bkviErHaBlRFYZB3bhrN/i2kgU+Ao7f2p6EmDcJklS9KidOY yZPIw1e6++o59cobaZQp 4JzCkSe76i334EJITWn59CV4RCI7tataq3WEmjMzMjD227TB2bR6LmB/QcO/Kb017ALpfEXZ/HwwQOLU GWf5aURu7Bbh3lm8LlxK VrjtgTDJQZUOgrtaGoGGI2Ys1KPT9fsH/4H9x+wKvMRpKamxr+JN+36+NYuPAka0v8kw2Jj+J0Tv0ofW 17oHO4Cm0sMgbDnXrqSa 49uLucv5mpdcNz6ytHPl3jRaht1/qhfi33pr03wl/ljNPmiXpmG4gR4pBmGxs20wGFpWEL1FdCby2MAc Iy22ohtos3YDnEvDfhga vjvfZpIDOAW4qbeFMTFhCu/FSnBkLQSCRwf4aRiBWz5s6cbKJ2/mcCHXy3ce9du8F2fCw7YY4/PuTNnZ 54czrZDMw7ORoal5dcTm +fN9/C2pm4NXKlnUU5fd/Pv6w50LabBBp89WYeI3Vf9xkC+Ih8z+blbj+6wiub71EKT/p5z0Lszx95eg /bgNFlKhIYP0n3NiNf6o +Z5SmXf/v2+zjnZNF7tKeab/to8NxZq9OmHfgdG9Ih1E8oK3pw2+nTUoCcE2Y1XeSpqtqShY8wLpivXG fYUUoRfgVNl1jfINoei8 vm4ghlXXelERXprxyDwS96enr2oXKoRFHqfvXGxGSpMfUIp7Xdh478OmsGn7224u5cNr4XBEu0aDUjnx OKn88erfFd5Q1iZ2v+DB NQMrFe/vtUsbt+71rFRooiCIpptEYInOVKBSwUwSR4yshanBK0+THWfUoRUl85ktziqOWNRMLiLqdR2S rvNiwJhZuuejyM18ezgB 9i3/3nYlxJlrGdLz7+PBd4+Vg6vq88BA5u6tvkLMLCVKVFC0VMNC7KNLY0+nBEFzxg7u7/8PHOWVQGSJ IUiEQCIxWKhUFhQOvlZO G9+KHBhAiYMm98gNGIV39yIOgoOoOp/z37x/EV+zPkYtR9vdbKS+i0hGFnn6HgpHK349hmYqf2yOlYoB 0+mevg66ukjYVY6605eb IFWuvIRY5ziE4KgUX1bHJXxwKE37tY288J0q4+/evWqX//+N7MrPMqw5k0dsBjgBgsGi4nAvbuX2/fN8 mW/ci4ZmHSvOUDM0JVk/ NPR0vySfpe/KeQvQTQdYQ2rmwOEwAHSnZ3fkFiAhIIM/bsdJy7vvPf2TVV3pIcV/51kFFwoETDS4iPIQ LS8t4/OcgBG2zp5CP4+f lJUcIcO+R5ATxMqAJu8sURy7mcEK/xaQg4fL12a7bCfPcaoCwoiKzw5/Z/SmJZyJ9Yl51YQ5n7bSFa28 uPHjhczzcKxMHF+0EPII 8WOWOloi6B5Tm+FKdwy4Ajv8WmaOMIoOb/9/dbEgJeXVZsfV2L2L9XMd7o2wSVirfXvprsjJ7tYjZomC Oc1t7pivz5NBBZocBvyo /NKJkMh7fhOJcDcUxja4+EV49TlXjZ+2G28i5hEKWQfpFIkQtjYOxa2E87Q7Dx920beut+6Z/gx1cgS8 Q4nQqrBu40Xbaee67Xz5 WvVujUAXA+/waB44Ncb7FqV955RJJxzixGxr4e118/hT/TZ5mNv8+rVr//KpbFPFx2sCRJlSlh9qA6Fd ZteBGTQsFnCqc47df0fd GzERb9i9OW0wBW8+rd1/FtIwvFcM683yRNrXnzna11KBIKkhuQESkehZFkmVdjDQYdJB/x95DbpxAtb0 0oTIrtBqwFt4YZVH/lt/ gRVLNExSTU0Nj3/zr4b+PunyMzMTExIrN+gwU9JS15su/la8OP7Lf+XmlKpKRJIF5Tt/srUYdFBtwW3C 0+I87m1w58p+Ob1m0k// CABC5jYUaao9dbW4j27B//mDQD4+vn6+DO1PODedxl62y/PGRkZ/LlBMRMU1t7u+XrOSmd9kOO/wsEDb ++ayxMFGAOTzIo4Ul+Eh cOxPQeGRG1OF8zK7Tm3YdGIEfYSp5J2fyv8FdPk3Kuvd2esePXc6b8zKy1snuafITs1FprGRmlu7Zrzp ffIAODB/yeYQb4nt5LVX c6uqKT3iGpHZgtE/f7gH+0OGHsWtQtNMRVE1zoqA2RB6aKNnHtRTz6hu3ar1e/pZ3k6WMMX3M1mhOtAl I59nkiK7Yd/bldAhwIAS TMuSZaHv5P0nxh3h1AkJ3gjqP4yczkjcH0E5VL31WfANNjIFaoz/Pj4+fB15RmO2Wi6y4R/v0slRdCGO fsZYWvbJUKb5biYYNSTJ gRnZxfzVpUyV/voIbPqmiwpPi3RFe5DJBWZRQfIBtpgGu6LvxA+/IXbrwttVlKId0gk0QbyzbwOoIa0P TAr36G3SyVhsvd8+jgq6 z212NBRV8Nxgq5dwS9SWFn2F06ot5FffglxfkHWwJeEp1+/ZgKkKJbxegn6QaFMY7HtAx/iyQq3UIpMj PXqK5l3vtp0kT1xvHVlg Y9fwG/KoSO3UmQim0aZbWx82Wtq8gWtjrISFdLTNOQyzQ+UHwAeJnP82dYEP9NI38tkM9bpAWATz4Maz 71xYZ4VnASD8TsXKatq1 +GHceMNRoPVDoWJ+m9xlGj6bMUBv/Ay2Tngu5bq0UO6pk86kdSO7wx3parMpb6eMtIqaD3nBjJzSm3i/ 8eTVT81ui8iy3epXje3t ef59XMcya4+elA3EOi3QAxVkY4jWtdIYFJmL7oRoHbpR98RWYDoXt6wA84tSInekoQXOrrWrEBQqVtrJ WeSy62MmtnMglvfS2Ss9 3HJFLiOGa27U9kcJ57dGpeC3GMVATBW59bsKVjEpNmBlSxOnnZOFFhrrNXi/Clldg05NCktz5Wx1JSqB nTc4kUmgTaKsQ2rNivto i18/u66HS3LVNbGB+M4bv/zuYFMIkbNHmYMzz7va9tZCPZClIySV1H8GVu3/9dn+MiRABD/3y0JTNH+q GNSoWLFPn3/9/9ATo0aA 2cZthAbCk+Iwj9DhPdwWgs9i5zbnvllpW2rm1u+s8KJcvRcm8vGIUliriPyX5MwKuDS2s9zOROs9DcDn OkMOSt13MqiwiXrDBpiN Jib+I320IPlXkzpd8vi5n2/+uZVlk7En77ae37kIHu3t7urIJNY/1cg+GArG9+kZ6KiNJA/ruM/dEERA tNbnCjqLnqvJPBeATSat 84reqC6h+tBy35FddQk8XBs4bFodLPfQw5fCFkOcoAP/fZKMdQA2Zltb1wGz51iTdM9EXaj1ZiNoh805 PA3MaNgLnez6va06IdU1 9WrNsvVOz8hKOL07KzE4e7REKdqKtPRjxMngu87awVeuyhbEHyrZU2UJ+dk5YZ9Q/jinfXiE43lTclrx /5tBXsRSU5kHNi0clg+9 0TJkBC7HqSj3nabaK1BrOslZMAcv8lx/WlW4GhMLUoQC7cusUZHvf4wUoFxFF5pv/L4ib+xrh2la38nT 5/mZH9Av/1R44ilVpNVq 5kwTpRGRIAGuOeUVx7xC9bTgYJEuQXISih8KOm3rJKscioTgZme/Tb9YL3rYyFspF4VjWrkdyEOeHpif dUrZozwKirN4HcwDhAyS XQFmg3huuvurf+egKAKbAEfVrXfEWEzi84/yxmQckQSD46vdMpdtlCXx/+yaNGzZ8/gRo9gXamdQh86u nzkqNHFsbWb+Ftrunft1 t1Up/v27F26+JfuPXuYDzN/BB/9GgN2ms729779qs57tvietq/tAyAO0GoLi5Ipbhus6BLeKfTH2Qf1/ qpzI1ACMPTDLsBTcwaPP UwXBMmoskAXaR4xia0du9+ORUG3J3m/8WSx4fNy7G8EgbxZeHskHllh6uqhhVCzab7Y+xfkffYRKBSKi VcVEEr30aZj2+1w5m7tT wvLC4sBqljpJ00sVoUPUrSLweSVdRyyda/Oyc6+umTk3qLhic774cOhWtqbOKGwHr3nAil3WWAiUwEBt a2VWWxFTiTE08jlVTell E2UcItxcug8nkdqNn61dDgqKy27LrMrxGknnlifhfiutgmyNZDNkLExYRpqAdHQZDttghRmEC4bo61wq nUv09KBwaCN2nGqvZuf8 1JHkn3ztcZe31ru2/Cae2zma9expGd9FCGbFGcb/DgK6JYyHB4N4d2o6p819ZJYIWti6+fPBw8Z+kHZ5 4y6ojMrQS2BadUZANBP5 MO0CQJDnxyEIGL3UYN23xwcc1rc+3f1edR4PB39a6rnAuPDw9tWBaG0e3RnCzeYok33k7/zYnkvxx6og d3wBHihfAasYSSD47GmG injw1Ek5RC+hD2oR8cP/5cFziNqsAEOvgO4GtgKUTyB6i+3Xz/e+jK3QpaUcLp/J3ecei7j1Fbld3qG8 36gnJibvYRZolKb0PaSI TO23Kwa/1Ub/g502Oj4M5YIfWz4m+EFDXifkpJ53jnqNPNcHTYZjrtd33063EyK9aT+ju283oGVoGjs5 PrDkwR7nCvi/+1W2hFbW +YOXIZgLLy25Ibz1ft2g7tmnL+xs0jWwtoTomnaAg4GfkxEzaSF9Ws51lQ6nISg5s202sg6/Z0tbNb0+ /CckuC35P2oobC+2Auvu Cd7NVDC0Vd/zOLQx8kzjw5hihUULULfXhP6OvWePOBb8plm2f13w2m/AkBiYuLkH3/U8DPX5qtQwVi1M 8JzFNBv9gPRQBvFcyc// Kvi0Ludy3lUpV0b18/y2ipZVSPu1d223LPmfNaoGO3+nQI4aZLPH4u2LIGDPJRjMTn9TG8SF9812ftGw 7Ls+MPtCBMh0Fi+d/Jvw aOShHitXthmev6F4i1O4+/b+/hx7dqo48lkdeyOHSmG+zfkPpMM5Rw4ecLnM9Hbqjb+kuRX3ctWmNxdx fbg/IUL+Tnwf+7evXXzZ onESg/F18+MgxAmv8gYW3XqjRZwGcbcVTYgFTngWA2/jisQqycTTCQq2VVfj8CPqAxL5CLgMQVVNotM5 7Zt+OtIQ4Qh07gmLkiwI RKY7Nric61KVDKT/6Ono0eEto8vXWUv4H95ygHDeeqn+UxHhptg7bSEz6ELmih9RbLylYtS72/ggPwRD YEzOac1vlWZ0ZhC8vFAX Tq+StVbM9kgDLLOzYwbrPWP9sxIzeoLv9GnarVphzJCZzDSZItraW/WlCt6GnN3Zx+sLtNNFyegjC58k 69b9iuEl8vH9toa1Hxd3 eExf+CRmgTrOn3dBvirpbXJtiP7vAVJ5KJzP2qEIXl9oyUu1RxYnfWJMTchk2JGgVjYjRHgKXisRwNl3 Pno1lyL3nOnfMG9m5UX8 71T1PT0psIXzp0/AICnp+gsdiwD02RYrBfO/ygNEMGf5ls8z/t6S150niZJ+8XcdJk1Y/2KnZlK4tpxS EYhWFGhdaEdxmq5c63hS dSFpr805rYPl9HW8wzHopDNow8AKYJzIjmi/Q1jLzaF3yxAveADoc/tQsP23fLM5H4sebMiUxigKFzCy 9Sf7YQbPlMX1RcTjY78E h982v4k718i9B3e0iOwK7YgD3D1yavfMklplONuuDUDgSP66ZitHicj0f34N4y9KDAqDr8ZXOjB4waec 7F1vsk9BTNS480xy3UtB iKdDWeEnMWbQJWoMyQy9d1kjbFCGjAFUc7ULOAgbi4Whs/neCe0ZOCcCan+fetW/yy3Smjz5TVQ1y9y5 glPDtYKDd6BJvceDuzHy dFKOdcsaxkLXzCt3h5bhwpcxPfyPEq8VKi/jB6gO2b+BE1WatcWnfJRchW7DupS4xGlNKZdCf54OxkBa N9xjk6jmthJYr8RHCqCp l91gPgNTdcmth779/xeRUMJl0kIKgns08CcUoUhQtqn3mUrjrTENy4h3p45YRIkbVqMWIkIa05R4IQw8 oEuje1wle1JzX63Gx2f8 +margret+MYe80ooxCmk5ur2U3kDPsvAqYNwvOoHO5u/kjmLQRd41YeNn95vJ1g9R9+yHWq4joff8zkktMP+O Z7wb3lv2ToPhW3Tvu1uI g495Yii0rowtTxcks871rovhc8sz+gtSExM/B4m57zG55YUl/gR8/rHKQUdgzMXeJke3FlkU4jel/CoU WvWrlkjFosDAgNMfppW4 L9rUXVpTvOQjFrbC36gtUKjqz9nfHAg0Jv7Nc86ur/33mTUN92DqHCZSZzO32ms/829w6GPQw4wk6bsm 2zadGDf/uVLl5k+XQEAs TGx58+ISVWTgj45O1PCGdR1ZAwr3+4sCEllvDg6VJZiocnRYnJG4Nc9Wg6nz8s17PGy8/9ISUlRKpUMw 7vkSgIMmDQPMY7oYxlz7 FFXKMg8fKNT7/Jpj3CmHs3UiOd2K/v5s+f7RUm5L+r1N4bRdNf6r4zEQyFQuGcilG8/f/f08sQKd6uv9 ujT7fOIumwIKMMhUnXuL dMTkeiT8239p+6cOVqNtk/bfmSc1E3x4DlxxYlyNSX+EWOrylfSdgaXclgiy1HuMLAP6jsVnKaDFP97J K5S+svJVhhyWj8Gta5+T bxAKKBIUqVSRT9+rVZprwTHqk4PhPCzDCbm0t5c/FirdYKRk1kmzi+7ju/TMGSgW68IrULYPEgA3a02W q9gjhohhsGvWAL0XYt6M jDjnmCpuUjcWYZnm7I/3c9z87VDDvMlTmVV4bnC95+ln6yv9xq51Lzs1IMAbQrpcKJJja7sFuqkRmvjz Yp6jRGPIMMHUtpOCI1Sf dXdq3riH8UywS1gTtiiuIzw70zepbm27ZfQlPlR8z+FISOFiVtafR8iE+JzUkvVwFUMlabStZ43CtOyv IUlluC9mAxWo0my0qesW ls0PjFYMRfNrQzlpb1OzdCnc+dtPJ2ZI6mn2NCjTS7dWDXBnd4JfbQbUUUPMFA53ac7382ohnwWTzb/7 C7ld87fK/j5+bMMp4adp /KNaP1pJ/S5PaDy8+cWy0DpzCJ944+fP3/00Q6v82i9lTt4AyTJiK506/WAs1k5u4r2Md5CutP1afcq9 XeLK5lMzvBx6wh3iSTGA s6d/jDNo5fVTXtMT+PCCwJlNuSeSLde8eIH+/rqRcJZAIYYTe410ooEZ8uOCfNf6S1+rbP8H5C9gCEly uKjmq985tkpq8z+3L2bX 27h0fJIDDMXxmKOWmWxMe6qd/mjyReLHGzFSxcGT3dYO8KAQY4oMn4lqHEWyIrGDb+/Yj2gRrGtpDux5 qIhr7BusWBxf6eobwx7G NujMJgXBaUszU5ygqbb/+l625hedn1no8/OGw1AMQLB9o9tzVCRQb6tfwfaTPRTE/qVtb8zGXt4UGzLO U9VqEJWyT/+/auZM1133 TMt3fbWMz+9XA6f4u25d+/K26xb0Cfdx6ccLLKrlnteN1QGF7+u+EWXxAsMJ7Uwahpqz3j2WVxJzOhVi CsdraCqOeSLlYKNs3W5Y IjJ3E21Xcf68WD8j7weYyE31DX7p+6dwCaJRFQjIWCZMsw4Vt9BXtSVdmUrqH//7lSnw6PPeISUOZZt1 q1vdzLiI7UV5Vt657f32 1QcHM8X67nBakJhTX6MKRR4BEn4p39gfmrXAZi7/3oOb7qk2MY2ebr8sGKdvasYDtNfQ0+vHIkLclS1s xlYrcsfk9ybVZNV/4ED/ 6mPjLAs++D+g2oJc5Q9irUMaUmZOWJWEKS0CYhmWWB03hNa08OYHgHWAnka7r1W3bnaphbco7Lee4Rm2 6AbK9oIjiOidXhaGq4DX SSaD00dCcf91iQSHVTexGsjsBo5XsRd1vc/4cAe8KSVx7Z7dgRm0RsX89QKOIihgKlqWVsbNAsB56cMT MKVEB9/2GOUx9Jh9+Agk 8oQQkajQa/Qmm7jsDDEQp8iscjCbRna6cqkvs9XxIhL7+ffB4ubdKoCeHexvxY9+kxTo8WyiFwzDCi17 oWLd+1tYouQVvZF7upKq 1TnOtLpzra553YVNai/SDPJXXgixOXQ1MA5YDgXp6AbiDcFyot8gRsd+cJgMJh/A//Y+UxAy1N6ccIKn mAwpQassDAYTKkBKywMB vLsxOmMa3GLLnMHyhYrcJwckXLODWqIZvxZChVwjWrVe8OHOhYFfjJnxOrexOGHRYwUYjfBBjEcjWxIh 8GUGrDCwmAwpQassDAYT YjLDymVImCqaCpVi7VWEjWAscQjqStnqSAKSVhQKdtLGrVssGxDl5IDXzMX+zp6oPkAeBQcTb/++OOnz ytb7y2sIgx5i48k6+joK BKJ+dhlhiJCqw0mGc/k0p76nYAI3kw2T0dSgeKoKsA3Yqy38qo7gbu852hy5r5tEc6YPSDd272RpuWTZ sErDqUz8FPO7999cadtu 7VQHP7bf6/E5AKv9wxzDfdUm70IA8+1zmXnUNpXCMgUxmdc6j6cTjDgkst/VUzx72Wdmzy+qR4+fPj/z OjSpcuuXbs+mr4Wjs5cC WKEaZe/9z849yqb//4nkV5AHFLUECQMQKxuG3ziyjVtSV8WsZjCMD1nTxSDZ8WL4qOtF6QIb0708j/+o O0soqYCr758Bozv5aSIA E+ePCkk/yNbvbYHjf4qKRrJoGSOfYw5lQzYYqYkRN5hJr4TTRXO0zBOh4jRbm0GP6mEzYjDkxSTl2tYI Dj213Ydp2C3/ZkzVSqV5 v3Qx2JUMBTqeu2/9UsMn52a+DY0T0CF/eoRGLw8LPRR6WQoJmpt+aXcnZDS9djgNUKUyNFkbuZ35tCcB SW+GaRFKOy10dJ8ymi44 85wT4OzWA6pKu3xwokPNkDpzZJXJ77iMdtZgzbb71dLx1o+8xYNuojxPmmKjf97+qeq86KXpnbaFypGT g8sQUNQ9Yib1Pc8MZclA v/08731S5L//v179+7rJGHqIfd463aLlMaS11ljMmi1ghBkmDr6+K1j4hq2twhUkCY/kDpVxCEm1iI11 pIVCwgU22IKCg+7bt26A lRvsGQhZ41DDNwHOSeWurf6mJ/a1VCNEPOi6zFROqklP4fJwVoxdpURyMlRc3t1mVlxKt2Zqg4Nym3i3 daFYNQNh5rsOjA874/z2 /sQbVua46u19kt/IauhU5i060MMCgj/HUue1wj5P/Pbz58/BjT9stmdBI0yxLsPfOCtiKbjwZNPtcK21 DuuKjrrqCu6zoUEWenc1 DHdIBfbTXmVTMsCfOCSFZqEPKmrapaXXq8lKKTqz4GSzFsn/AaomMRlPKXWkOvFdfHx5op0zqQFSWEWC FlZWQAwc+bMpKSkwhWWB MfpLlIC4SGF32RlI0gtR8Tl3AtpUG59QWM1Gb23xRl91wFSvsDhv0ce4lmHSCiXGUKTroe+71C3uhs9c 5ecVTEf6WmoAcNwQwJpc PztjuHDh/RcVHdOIDVo0auL4CbTzyPBf1pOtVIURQt7rqDrILPSIE3zkiZgICcZoG98Qv4y/Yrz4pWrQ 3nPMzSIW190ueKybhyqh NJB7/yOQpRnPqmE9Hg3WimmnYq6wAor7bYlwJwFzg6sVLw9+/zjL5OlAlZv4GtehYZeLFKXXQezJu5Lz k8Wx1DK78SHfpOajMGk9 22adpWnJKMV4IP9OFFHh9TfdjIy6q+yr9xp0a9lKzIUfUoMjiEybg//ftmpTFqCOWCwVj4DtCx9gw0Mg Tt/++80BDuCIusY8pPTI 8GWCiDXUdzPI390v43Xm1AbYPwubCdyr7m3GrQniV5/v/jN1iW563iH3X+V6cIMi8Gyob19736WMz0q6 TnbdC7TAEUDTk9NSLkON Fl+cvuoHtUQULjIElepVxYfl4sAAS5S2WFfr0SDmHxTbHORT1aS3+TAz19k7o87frTeiurm33005fWCf QAAc+bMsThYUAtLIpFYH SusXr26+BtdzzvDfiUfJkYQcvJiVb4NBWg6nmnoavQpWfVuVP4hdgbHS7dsF0kqcyyCOD0dgfK8DRfm6 Llz+YtUoUKF/QJ51JBcP QCW96JqUdRNX7sEjB5n6GMoK4Lej2a79AjJXxKu8VxhNgXAmGmRiR/x7G2DCocTwEhUYn2i5nb/+uqrn JycQhJ5+fJlMbNDCFnkC JQrwuVIJv04Cd1bflQu7S2XvFWg5yjPmJpeWcwid1+HZuVV4zx1+vqacjRhNYUaNWoAAG8+D9OrPwgFc PCOWmBwl5VveuBWgLvi7 LCxBZTv9fj609SuW+7klVEPy055BUiNY/1y2aJeN7922521s+/jHEs8BPLKhdBlhe8LHGKSBXNfiibFQ JNDwd9ktVffCh661wttv Gu8HA0eHy1sJdy5XupeLkTTjR643TixyRiqqAwzG62kYX5EKbCdXVYqn841m2IizeEGDgMw950/++23c jESWSzMNICuMjvxUB6v6 iuOSsxxV08IB4BrSMYs2He4m+v7uk2w5fyBz1NcWb98TiCg+dSl8N9U3hyFYPf9CXE0daNJ3+Kb7SluB zGBwWn7WdFIIjFTFf03x sTbOwaq7PHoKtr8ipx0XtG21M/4mptqRJBcmLdv7nmvxTKV0iwwNZcUD76nHQvlSGK4C2U6WCUjADDlk xT8EEsdtZ/SokuIEKpfv y3T5xBDe8zPTDhs+s9H4W+KeAGqEvNBQl2khcKJqbv0Cc8h6wVc1jk+ppFdp9INTCOStx5h9i8s1Qks6 ra69pLfcyO/ERQUZApat QdUO7j7s0d+49atW/uRLIu5cNtWt2OOdhnwYsWRXpCUKjX8wCwK11/Zox3Flcsu5G2GzaucFnM1s3kZ/ Ysjgl0FbF77a+ePWJASx 7kxvQua5alBuNSE9Hr3ujGr040BkRbEJ8e2pDIyJm8QEnXk9tX01jvEZsh5dl9iBhY6qal8eoBGKJQAn /auz7w982+/FYlEPj4+j z1J3qjS43aiC9+syc/z58+vXLlichMHgJ9++mdd1go1cxq+/q5a134ggPr9NwbMthn9+/svFfFtFR4sI KhPiQwmk4S0Ys4prGr7y lqvfcFvRs1u0knZeZMYN6kr3Os4zQP/dQPRaO466x7+/gGlrfZkXpqdYd9ytcVrkgNSFu7v8x98qqSIG I0BDxYOgPilEKwjbjDpQ nboGGMOShFNaLw1I83cadZRmqYlzVXi4gt//vrr/NRpkW1FhyLt5ipC3MsbIuDCHtObqdyakKSq4sryY eRDFvzmOMBC5TjCWE8Rm RUiD73joc2fBCCDkh01WSPTXp9dr42wtCtDjRitK+gYbMjIWw55sFOr0R/DucYvHzj9SrGObEdOTehLp BYbxDeDt9DZJvDWqtUgb MyxaRCPXOgCVznNLaQckCdAx1HRGlLEhiNjrRj/A55RS/b5f3JURVPPYGoHViJoWdUG></span>
</div>
<strong>Patient Name</strong>: <span class=clinicalNoteMacroWysestefania id=[id number] macroname=PatientName spantype="macro title=#PatientName>ISAIAH MACIEL</span>
<strong>MRN</strong>: <span class=clinicalNoteMacroWysestefania id=[id number] macroname=PatientMRN spantype=macro title=#PatientMRN&q uot;>[id number]</span>
<strong>Date Of </strong>: <span class=&qu ot;clinicalNoteMacroWysestefania id=[id number] macroname=PatientDat eOfBirth spantype=macro title=#PatientDateOfBirth>1985</sp an>
<strong>Today's Provider: </strong><span class =clinicalNoteMacroWysiwyg id=[id number] macroname=MyName" spantype=macro title=#MyName>Wiliam CHOUDHURY</span>
<strong>Date of Service: </strong><span class=clinicalNoteMacrMaraiwyg id=[id number] macroname=EffectiveDate spantype=macro title=#EffectiveDate>03/19/2025</span>
<strong>Attending Physician: </strong><span class=clinicalNoteMacrMaraiwyg id=[id number] macroname=AttendingPhysician spantype="macro title=#AttendingPhysician>Wiliam Park (Medical Oncology)</span>
<strong>Referring Provider:</strong> <span class=clinicalNoteMaSiobhaniwsafia id=[id number] macroname=ReferringPhysician spantype="macro title=#ReferringPhysician>Kimberli Enamorado MD (Endocrinol ogy)</span>

<div style=text-align:center><span style=font- size:14px><strong>HEMATOLOGY/ MEDICAL ONCOLOGY FOLLOW UP VISIT&lt ;/strong></span>
</div><div>

<span class=clinicalNoteSectionVisible id=[id number] internalbreaksection=false originalname=Reason for visit recognizeconcepts=true spantype="section suppressempty=false>Reason for Visit</span>
<ol> <li>Iron deficiency anemia: Secondary to blood loss.
</li> <li>Menorrhagia
</li></ol>
<span class=clinicalNoteSectionVisible id=[id number] internalbreaksection=false o riginalname=Impression recognizeconcepts=true spantype=section s uppressempty=false>Assessment</span>
<ol> <li>Iron deficiency anemia
</li> <li>Menorrhagia
<ol> <li>Please see hematologic chronology below:
</li> <li>08/21/2024: Labs show iron deficiency again hemoglobin was 11.1 ferritin was low patient was symptomatic.
</li> <li>08/28/2024 patient had IV iron.
</li> <li>Patient now returns for planned follow-up. Patient reported that after shehad IV iron she started feeling better after a week and then she felt great for a few months. She reported that within the last month or so she has noticed that her symptoms have returned she has very tired she is unable to exercise. She is noticing hair loss .
</li> </ol> </li> <li>Menorrhagia
<ol> <li>Patient continues to have heavy menstrual bleeding she is working with gynecology and trying to schedule an ablation procedure.
</li> </ol> </li> <li>Intolerance to oral iron.
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
</li> </ol> </li></ol>
<span class=clinicalNoteSectionVisible id=[id number] internalbreaksection=false originalname=Recommendation/Plan" recognizeconcepts=true spantype=section suppressempty=false&gt ;Plan</span>
<ol> <li>Labs show that patient is anemic again hemoglobin was 10.0, ferritin was 3.8 and iron saturation was 4% is consistent with iron deficiency anemia
</li> <li>She continues to have blood loss through menorrhagia, that is the likely cause of her anemia.
</li> <li>Patient is unable to tolerate oral iron due to GI symptoms.
</li> <li>Will proceed with IV iron again today we will plan a follow-up in 3 months as patient becomes very symptomatic with iron deficiency with longer follow-ups.
</li> <li>I again encouraged her to reach out to gynecology keep her appointments for ablation. </li> <li>I gave her information sheet about iron rich foods and encouraged her to include some iron rich food daily in her diet.
</li> <li>Also advised her to take Vitron-C every other day which might be better tolerate d</li></ol>
<span style=font-size:12px><span style=f ont-family:Star,Helvetica,sans-serif></span></span>
<span class=&q uot;clinicalNoteSectionVisible id=[id number] internalbreaksection="false originalname=Med Onc Advanced Care Planning recognizeconcepts=true spantype=section suppressempty=false>Advanced Care Planning</span>
Not discussed at this visit.
<span class=clinicalNoteSectionVisible id=[id number] internalbreaksection=false originalname=Pain Plan This Visit recognizeconcepts=true spantype=section suppressempty=false>Pain Scale on Today's Visit</span>
<span class=clinicalNoteMacroWysiwyg id=[id number] macroname=PatientPainScale parameters=LookBackDays:0,ValueIfNull:Not recorded on today spantype=&quot ;macro title=#PatientPainScale(LookBackDays:0,ValueIfNull:Not recorded on today's visit)>0</span>
<span class=clinicalNoteSectionVisible id=&quot ;[id number] internalbreaksection=false originalname=Pain Iman n This Visit recognizeconcepts=true spantype=section suppressempty=&qu ot;false>Pain Plan on Today's Visit</span>
<span class=clinical NoteMacCarolysiwyg id=[id number] macroname=PatientPainCarePlan&quo t; parameters=LookBackDays:0,ShowComments:Yes,ValueIfNull:No pain plan indicated for today" spantype=macro title=#PatientPainCarePlan(LookBackDays:0,ShowComments:Yes,ValueIfNull:No pain plan indicated for today's visit)>No pain plan indicated for today's visit</span>
<span class=clinicalNoteSectionVisible id=section_ [id number] internalbreaksection=false originalname=Smoking Status&quot ; recognizeconcepts=true spantype=section suppressempty=false>Smoking Status</span>
<span [facility] id=m [id number] macroname=PatientSmokingStatus parameters=ValueIfNull: Not recorded spantype=macro title=#PatientSmokingStatus(ValueIfNull:Not santhosh rded)>Smoking Tobacco : Never smoker; Smokeless Tobacco : none found; Vaping : none found</span>
<hr><span class=clinicalNoteSectionVisible id=sectio [id number] internalbreaksection=false originalname=Depression&quot ; recognizeconcepts=true spantype=section suppressempty=false&gt ;Depression Screening Tool Status</span>
<span class=clinicalNoteMaDavidysiwy g id=[id number] macroname=DepressionStatus parameters=&quo t;ValueIfNull:Not screened on today spantype=macro title=#DepressionStatus(V alueIfNull:Not screened on today's visit.)>Was screened; Outcome positive: No; Screening Date: 08/21/2024; Screening Tool: MD-PHQ2; Total depression score: 0</span>
_

<span class=clinicalNoteSectionVisible id=section_[id number] internalbreaksection=false originalname=History of Present Illness recognizeconcepts=true spantype=section suppressempty=false>History of Present Illness</span>
<span style=font-size:12px><spanstyle=font-family:Star,Helvetica,sans-serif><ol> <li>Patient reported that she has been anemic for a while, she reported symptoms of fatigue, not been able to go through her day without exhaustion. Patient feels thatthe symptoms have been going on for a long time but got worse in last 6 months.
</li> <li>Patient denies seeing any blood in her stools she has not never had a colonoscopy.
</li> <li>Patient denies any history of GI by pass surgery. For last 2 years she has been taking phentermine and for last 6 months Wegovy to lose weight she has lost about 60 pounds in weight.
</li> <li>She denies any restrictions to her diet.
</li> <li>Patient reported longstanding history of menorrhagia. Her menstural periods are long up to 7 days, and she has heavy bleeding. She has consultedwith auto transmission specialist in the past, however unable to tolerate oral contraceptive pills IUD, due to side effects such as weight gain. Patient was scheduled for a uterine ablation at 1 time however it was canceled as she became COVID-positive and never resched uled. She is not interested in hysterectomy.
</li> <li>Patient has 7 kids, youngest 1 was 2-1/2 years old. 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 Patient tried to take vitamins during her however she could not tolerate oral iron due to abdominal pain cramps constipation. </li> <li><strong>01/09/2024 patient had 1 infusion of IV iron: 1000 mg of ferric Derisomaltose. </strong>
</li> <li>02/23/2024 hemoglobin improved to 12.4 : Patient reported significant improvement in her symptoms.
</li> <li>08/21/2024 hemoglobin dropped again to 11.1. Patient is again experiencing fatigue hair loss.
</li> <li>08/28/2024 patient had IV iron infusion symptomatic benefit.
</li> <li>03/19/2025 iron down to ferritin of 3.8 iron saturation 4% hemoglobin 10 IV iron repeated.
</li></ol></span></span>
<span class=clinicalNoteSectionVisible id=[id number] international logistics analyst albreaksection=false originalname=Interval History recognizeconcepts=true spantype=section suppressempty=false>Interval History</span>
{ }
<span class=clinicalNoteSectionVisible id=[id number] internalbreaksection=false originalname=Review of Systems" recognizeconcepts=true spantype=section suppressempty=false>Review of Systems</span>
Remaining 14 point comprehensive review of systems within normal limits. NCCN Distress Thermometer and Problem List were collected and documented in the patient chart. Remarkable symptoms and concerns were discussed with the patient. Anyadditional follow-up is indicated in the plan.
<span class=clinicalNoteSectionVisible id=[id number] internalbreaksection=false originalname=Medical History recognizeconcepts=true spantype=section suppressempty=false>Past Medical and Surgical History</span>
<ol> <li>Menorrhagia
</li> <li>Hair loss
</li> <li>Migraines
</li> <li>GERD
</li> <li>IPMN
</li>&lt ;/ol>
<span style=font-size:12px><span style=font-family:Aria l,Helvetica,sans-serif></span></span>
<span class=clinicalNot eSectionVisible id=[id number] internalbreaksection=false originalname=Medications recognizeconcepts=true spantype=section" suppressempty=false>Current Medications</span>
<span class= clinicalNoteMacroWysiwyg id=[id number] macroname=MedicationsTab le spantype=macro title=#MedicationsTable><table border=1" style=width:100%> <tbody> <tr> <td align=left colspan=2>Medication List</td> </tr> <tr> <th align=left>Name</th> <th align=left>Date</th> </tr> <tr> <td width=60%>Finasteride Oral (Proscar)</td> <td width=40%>03/19/2025</td> </tr> <tr> <td width=60%>Valacyclovir Oral</td> &l t;td width=40%>12/21/2023</td> </tr> <tr> <td width=60%">Vitron-C (Iron- Vitamin C)</td> <td width=40%>03/19/2025</td> </tr> <tr> <td width=60%>Vitamin D3 (Cholecalciferol Oral)</td> <td width=40%>02/23/2024</td> </tr> <tr> <td width=60%">Wegovy (Semaglutide (weight loss) Subcutaneous Pen Injector)</td> <td width=40%>12/21/2023</td> </tr> <tr> <td width=60%>Minoxidil Oral</td> <td width=40%>12/21/2023</td> </tr> <tr> <td width=60%>Phentermine Oral</td> <td width=40%>12/21/2023</td> </tr> </tbody></table></span>
<span class=clinicalNoteSectionVisible id=[id number] internalbreaksection=false" originalname=Allergies recognizeconcepts=true spantype=section" suppressempty=false>Allergies</span>
<span class=clinicalNoteMacrTaysiwyg id=[id number] macroname=Allergies parameters=ValueIfNull:No allergies recorded. spantype=macro title=#Allergies(ValueIfNull:No allergies recorded.)>Compazine, citalopram, morphine, sumatriptan and topira mate</span>
<span class=clinicalNoteSectionVisible id=section_[id number] internalbreaksection=false originalname=Family History recognizeconcepts=true spantype=section suppressempty=false>Family History</span>
{ }

<span style=font-size:12px"><span style=font-family:Star,Helvetica,sans-serif></span></span>
<span class=clinicalNoteSectionVisible id=[id number]" internalbreaksection=false originalname=Social History recognizeconcepts =true spantype=section suppressempty=false>Social History< /span>
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

<span style=font-size:12px><span style=font-family:Star,Helvetica,sans-serif></span></span><span class=clinicalNoteSectionVisible id=[id number] internalbreaksection=false originalname=Vital Signs and Pain Scale" recognizeconcepts=true spantype=section suppressempty=false>Vital Signs</span>
<span class=clinicalNoteMacroWysiwyg id=[facility]_[id number] macroname=PatientVitalSigns parameters=LookBackDays:1,Va lueIfNull:Not recorded on visit spantype=macro title=#PatientVitalSigns(Look BackDays:1,ValueIfNull:Not recorded on visit)>Blood pressure: 110/68, Sitting, L arm, Regular, Pulse: 83, Temperature: 98.2 F, Respirations: 16, O2 sat: 99%, At Rest, Room Air, Pain Scale: 0, Height: 66 in, Weight: 173.4 lb, BSA: 1.88, BMI: 27.99 kg/m2</span>
<span class="clinicalNoteMacroWysiwyg id=[id number] macroname=Immunizations spantype=macro title=#Immunizations>Covid-19 vaccine (Pfizer)(12/22/2023), Not given other reason; Flu vaccine - Adult (08/2024), Not given other reason; Flu vaccine - Adult (12/22/2023), Not given other reason</span>
<span class=clinica lNoteSectionVisible id=[id number] internalbreaksection=false&q uot; originalname=Performance Status recognizeconcepts=true spantype=s ection suppressempty=false>Performance Status ECOG or Karnofsky</span>&lt ;br>ECOG: <span class=clinicalNoteMacroWysiwyg id=[id number]" macroname=ECOGStatus parameters=ValueIfNull:Not recorded spantype=macro title=#ECOGStatus(ValueIfNull:Not recorded)>1 Symptoms, but ambulatory. Res tricted in physically strenuous activity, but ambulatory and able to carry out work of a light or sedentary nature (e.g., light housework, office work). (Date: 08/21/2024)</span>
Karnofsky: <span class=clinicalNoteMacroWysiwyg id=[id number] macroname=KarnofskyStatus parameters=ValueIfNull:Not recorded spantype=macro title=#KarnofskyStatus(ValueIfNull:Not recorded)>Not recorded</span>&l t;br>
<span class=clinicalNoteSectionVisible id=[id number] internalbreaksection=false originalname=Physical Exam recognize concepts=true spantype=section suppressempty=false>Physical E xam</span>
Pleasant 39-year-old lady appears comfortable no acute distress ECOG performance score 1.
<span class=clinicalNoteSectionVisible id=[id number] internalbreaksection=false originalname=Genetics/Molecular/Biomarkers recognizeconcepts=true spantype=section suppressempty =false>Genetics/Molecular/Biomarkers</span>
<span class=clini Odalys id=[id number] macroname=Problems par ameters=ListType:Bulleted,PrincipalOnly:Yes spantype=macro title=#Prob lems(ListType:Bulleted,PrincipalOnly:Yes)><ul> <li>Iron deficiency anemia secon alexus to blood loss ( Disease Status: Untreated; Type of Anemia: Microcytic; )</li> <li>Menorrhagia (finding)</li></ul></span>
<span class=clinicalNoteSe ctionInvisible id=[id number] internalbreaksection=false originalname=Additional Labs, Imaging and Other Studies recognizeconcepts=true" spantype=section suppressempty=true>Additional Labs, Imaging, and Other Studies</span>

<span class=clinicalNoteSectionVisible id="[id number] internalbreaksection=false originalname=Laboratory Results recognizeconcepts=true spantype=section suppressempty="false>Lab Results</span>
<span class=clinicalNotKennethiwsafia" id=[id number] macroname=RecentLabResultsTable parameters=& quot;OptionalFlowsheetCategory:CBC,Label:CBC spantype=macro title=#RecentLab ResultsTable(OptionalFlowsheetCategory:CBC,Label:CBC)>CBC<table border=1 sty le=width:100%> <tbody> <tr> <th align=left>Lab Results</th> <td>03/11/2025</td> <td>10/09/2024</td> <td>08/21/2024</td> <td>02/23/2024</td> <td>12/22/2023</td> <td>12/05/2023</td> </tr> <tr> <th align=left> CBC</th> <td>
</td> <td>
</td> <td>
</td> <td>
</td> <td>
</td> <td>
</td> </tr> <tr> <td> WBC x 10^3/uL</td> <td>6.2</td> <td>
</td> <td>6.2</td> <td>8.1</td> <td>7.1</td> <td>
</td> </tr> <tr> <td> & amp;nbsp; RBC x 10^6/uL</td> <td>4.21</td> <td>
</td> <td>4.29</td> <td>4.34</td> <td>4.33</td> <td>
</td> </tr> <tr> <td> NRBC % /100 wbc</td> <td>0.0</td> <td>
</td> <td>0.0</td> <td>0.0</td> <td>0.0</td> <td>
</td> </tr> <tr> <td> HGB g/dL</td> <td>10.0 (L)</td> <td>
</td> <td>11.1 (L)</td> <td>12.4</td> <td>10.9 (L)</td> <td>
</td> </tr> <tr> <td> HCT %</td> <td>34.2 (L)</td> <td>
</td> <td>36.1</td> <td>38.7</td> <td>36.3</td> <td>
</td> </tr> <tr> <td> MCV fL</td> <td>81.2</td> <td>
</td> <td>84.1</td> <td>89.2</td> <td>83.8</td> <td>
</td> </tr> <tr> <td> MCH pg</td> <td>23.8 (L)</td> <td>
</td> <td>25.9 (L)</td> <td>28.6</td><td>25.2 (L)</td> <td>
</td> </tr> <tr> <td> MCHC g/dL</td> <td>29.2 (L)</td> <td>
</td> <td>30.7</td> <td>32.0</td> <td>30.0</td> <td>
</td> </tr> <tr> <td> RDW %</td> <td>13.30</td> <td>
</td> <td>14.10< /td> <td>14.70</td> <td>17.40 (H)</td> <td>
</td> </tr> <tr> <td> PLT x 10^3/uL</td> <td>340</td> <td>
</td> <td>321</td> <td>256</td> <td>282</td> <td>
</td> </tr> <tr> <td>&amp ;nbsp; MPV fL</td> <td>8.4 (L)</td> <td>
</td> <td>8.4 (L)</td> <td>8.9 (L)</td> <td>8.9 (L)</td> <td>
</td> </tr> <tr> <td> Scott %</td> <td>60.9</td> <td>
</td> <td>60.3</td> <td>63.7</td> <td>54.5</td> <td>
</td> </tr> <tr> <td> LY %</td> <td>28.3</td> <td>
</td> <td>28.2</td> <td>23.2</td> <td>31.4</td> <td>
</td> </tr> <tr> <td> & amp;nbsp; MO %</td> <td>8.5</td> <td>
</td> <td>8.8</td> <td>8.6</td> <td>8.5</td> <td>
</td> </tr> <tr> <td> EO %</td><td>1.4</td> <td>
</td> <td>1.6</td> <td>3.8</td> <td>4.7</td> <td>
</td> </tr> <tr> <td>& amp;nbsp; IG %</td> <td>0.3</td> <td>
</td> <td>0.5</td> <td>0.2</td> <td>0.3</td> <td>
</td> </tr> <tr> <td> Scott #(ANC) x 10^3/uL</td> <td>3.8</td> <td>
</td> <td>3.8</td> <td>5.2</td> <td>3.9</td> <td>
</td> </tr> <tr> <td> BA %</td> <td>0.6</td> <td>
</td> <td>0.6</td> <td>0.5</td> <td>0.6</td> <td>
</td> </tr> <tr> <td> &nbsp ; MO # x 10^3/uL</td> <td>0.5</td> <td>
</td> <td>0.6</td> <td>0.7</td> <td>0.6</td> <td>
</td> </tr> <tr> <td> EO # x 10^3/uL</td> <td>0.1</td> <td>
</td> <td>0.1</td> <td>0.3</td> <td>0.3</td> <td>
</td> </tr> <tr> <td> BA # x 10^3/uL</td> <td>0.0</td> <td>
</td> <td>0.0</td> <td>0.0</td> <td>0.0</td> <td>
</td> </tr> <tr> <td> IG # x 10^3/uL</td> <td>0.02</td> <td>
</td> <td>0.03</td> <td>0.02</td> <td>0.02</td> <td>
</td> </tr> <tr> <td> LY # x 10^3/uL</td> <td>1.8</td> <td>
</td> <td>1.8</td> <td>1.9</td> <td>2.2</td> <td>
</td> </tr> </tbod y></table></span>
<span class=clinicalNoteMacroWysiwyg id=&qu ot;macro_[id number] macroname=RecentLabResultsTable parameters=Optiona lFlowsheetCategory:Chemistries,Label:Chemistries spantype=macro title=#Recen tLabResultsTable(OptionalFlowsheetCategory:Chemistries,Label:Chemistries)>Chemi stries<table border=1 style=width:100%> <tbody> <tr> <th align=&quo t;left>Lab Results</th> <td>03/11/2025</td> <td>10/09/2024</td> <td>08/21/2024</td> <td>02/23/2024</td> <td>12/22/2023</td> & lt;td>12/05/2023</td> </tr> <tr> <th align=left> &am p;nbsp;Chemistries</th> <td>
</td> <td>
</td> <td>
</td> <td>
</td> <td>
</td> <td>
</td> </tr> <tr> <td> &nbsp ;Glucose mg/dL</td> <td>
</td> <td>
</td> <td>
</td> <td>
</td> <td>68 (L)</td> <td>
</td> </tr> <tr> <td> BUN mg/dL</td> <td>
</td> <td>
</td> <td>
</td> <td>
</td> <td>10.0</td> <td>
</td> </tr> <tr> <td> Creatinine mg/dL</td> <td>
</td> <td>
</td> <td>
</td> <td>
</td> <td>0.69</td> <td>
</td> </tr> <tr> <td> Sodium mmol/L</td> <td>
</td> <td>
</td> <td>
</td> <td>
</td> <td>143</td> <td>
</td> </tr> <tr> <td> Potassium mmol/L</td> <td>
</td> <td>
</td> <td>
</td> <td>
</td> <td>3.9</td> <td>
</td> </tr> <tr> & lt;td> Chloride mmol/L</td> <td>
</td> <td>
</td> <td>
</td> <td>
</td> <td>109</td> <td>
</td> </tr> <tr> <td>& amp;nbsp; CO2 mmol/L</td> <td>
</td> <td>
</td> <td>
</td> <td>
</td> <td>26</td> <td>
</td> </tr> <tr> <td> Calcium mg/dL</td> <td>
</td> <td>
</td> <td>
</td> <td>
</td> <td>9.4</td> <td>
</td> </tr> <tr> <td> Albumin g/dL</td> <td>
</td> <td>
</td> <td>
</td> <td>
</td> <td>4.2</td> <td>
</td> </tr> <tr> <td> Total protein g/dL</td> <td>
</td> <td>
</td> <td>
</td> <td>
</td> <td>6.4</td> <td>
</td> </tr> <tr> <td> Bilirubin, total mg/dL</td> <td>
</td> <td>
</td> <td>
</td> <td>
</td> <td>0.3</td> <td>
</td> </tr> <tr> <td> Alkaline phosphatase U/L</td> <td>
</td> <td>
</td> <td>
</td> <td>
</td> <td>50</td> <td>
</td> </tr> <tr> <td> AST/SGOT U/L</td> <td>
</td> <td>
</td> <td>
</td> <td>
</td> <td>18</td> <td>
</td> </tr> <tr> <td> ALT/SGPT U/L</td> <td>
</td> <td>
</td> <td>
</td> <td>
</td> <td>11</td> <td>
</td> </tr> <tr> <td> GFR estimate mL/min/1.73m2</td> <td>
</td> <td>
</td> <td>
</td> <td>
</td> <td>113.6</td> <td>
</td> </tr> </tbody></table></span>
<span class=clinicalNoteMacroWysiwyg" id=[id number] macroname=RecentLabResultsTable parameters=&q uot;OptionalFlowsheetCategory:Tumor Markers,Label:Tumor Markers spantype=macro title=#RecentLabResultsTable(OptionalFlowsheetCategory:Tumor Markers,Label:Tumor Markers)></span>
<span class=clinicalNoteMacroWysiwyg id=[id number] macroname=RecentLabResultsTable parameters=OptionalFlowsheetCatego ry:Immunochemistries spantype=macro title=#RecentLabResultsTable(OptionalFlo wsheetCategory:Immunochemistries)> </span>
<span class=clinicalNoteMacroWysiw id=[id number] macroname=&quo t;RecentLabResultsTable parameters=OptionalFlowsheetCategory:AnemiaLabs spantype="macro title=#RecentLabResultsTable(OptionalFlowsheetCategory:AnemiaLabs)><table border=1 style=width:100%> <tbody> <tr> <th align=left>Lab Results</th> <td>03/11/2025</td> <td>10/09/2024</td> <td>08/21/2024</td> <td>02/23/2024</td> <td>12/22/2023</td> <td>12/05/2023</td> </tr> <tr> <th align=left>&nbs p; Anemia Labs</th> <td>
</td> <td>
</td> <td>
</td> <td>
</td> <td>
</td><td>
</td> </tr> <tr> <td> &amp ;nbsp;Iron ug/dL</td> <td>16 (L)</td> <td>
</td> <td>94</td> <td>60</td> <td>18 (L)</td> <td>
</td> </tr> <tr> <td> TIBC ug/dL</td> <td>410</td> <td>
</td> <td>372</td> <td>285</td> <td>338</td> <td>
</td> </tr> <tr> <td> Ferritin ng/mL</td> <td>3.88 (L)</td> <td>
</td> <td>5.37 (L)</td> <td>15.60</td> <td>6.10 (L)</td> <td>
</td> </tr> <tr> <td> Unbound iron capacity ug/dL</td> <td>394</td> <td>
</td> <td>278</td> <td>225</td> <td>320</td> <td>
</td> </tr> <tr> <td> Iron, % saturation %</td> <td>4 (L)</td> <td>
</td> <td>25</td> <td>21</td> <td>5 (L)</td> <td>
</td> </tr> <tr> <td> Vitamin B12 pg/mL</td> <td>
</td> <td>
</td> <td>
</td> <td>
</td> <td>778</td> <td>
</td> </tr> <tr> <td> Folate, serum ng/mL</td> <td>
</td> <td>
</td> <td>
</td> <td>
</td> <td>Folate greater than 20</td> <td>
</td> </tr> <tr> <td> Reticulocyte count %</td> <td>
</td> <td>
</td> <td>
</td> <td>1.73 (H)</td> <td>1.39</td> <td>
</td> </tr> <tr> <td> Reticulocyte, absolute x 10^6/mL</td> <td>
</td> <td>
</td> <td>
</td> <td>0.08</td> <td>0.06</td> <td>
</td> </tr> <tr> <td> Immature reticulocyte fraction, %&l t;/td> <td>
</td> <td>
</td> <td>
</td> <td>10.70</td> <td>8.00</td> <td>
</td> </tr> <tr> <td> Reticulocyte cellular hemoglobin pg</td> <td>
</td> <td>
</td> <td>
</td> <td>32.9</td> <td>27.9 (L)</td> <td>
</td> </tr> </tbody></table></span>
<span class=clinicalNoteSectionVisible id=[id number] internalbreaksection=false o riginalname=Surveys/Consents/Other Discussions recognizeconcepts=true spanty pe=section suppressempty=false>Surveys/Consents/Other Discussions</spa n>

<hr>
<strong>KE[facility]</strong>
<span class=clinicalNoteMacroWysiwyg id=[id number]" macroname=LocationPhoneNumber parameters=Label:Phone: spantype=macro title=#LocationPhoneNumber(Label:Phone: )> </span>&l t;br><span class=clinicalNoteMacroWysiwyg id=[id number] m acroname=LocationFaxNumber parameters=Label:Fax: spantype=macro title=#LocationFaxNumber(Label:Fax: )> </span>

CC: <span class=clinicalNoteMacroWysiwyg id=[id number] ma croname=NoteRecipients spantype=macro title=#NoteRecipients>FAX
Kimberli Enamorado MD (Referring)
John Avalos MD</span>& lt;br>
<div style=text-align:center>
</div></div>

<div><span class=eSignSignature>Electronically signed by Wiliam CHOUDHURY 03/19/2025 10:05 CDT</span></div></body></html>
[2025-09-24 17:27] VITALS: BP 123/81; PULSE 88; RESP 18; TEMP 36.2; O2SAT 100; BMI 28.2
[2025-09-24] MEDS: OxyCODONE/APAP 5-325 TABLET 2 TAB PO (19:05)
--- OUTSIDE RECORDS SUMMARY | 2025-09-24 19:07 | XMS_ITS ---
Author Name Interface, [id number] lity Address [address] [place] [address] [address] [address] Organization [facility] Address [address] [facility] [address] [address] Support Name Relationship Address Phone [employer] Friend Unknown Unavailable Allergies and Adverse Reactions Medication/Group Name Reaction Severity Date Compazine 09/19/2025 citalopram 09/19/2025 sumatriptan 09/19/2025 topiramate 09/19/2025 morphine 09/19/2025 Plan Date Type Value 12/20/2025 APPOINTMENT TREATMENT 1 HR 12/20/2025 APPOINTMENT OV 20 MIN 09/19/2025 APPOINTMENT TREATMENT 1 HR 09/19/2025 APPOINTMENT OV 20 MIN 12/20/2025 LAB_ORDER Ferritin panel 12/20/2025 LAB_ORDER CBC w/ auto diff 12/20/2025 LAB_ORDER CMP 12/20/2025 LAB_ORDER Iron profile Reason for Visit OV 20 MIN Encounters Date Name 09/19/2025 Anemia 09/19/2025 Cannot tolerate oral iron 09/19/2025 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 0 mg once For actual body [...] ML epineph rine 1 MG/ML Injecti on intramus cularly 0.3 mg once Re-initiate treatment only upon physician approval. 2025 active Iron deficiency anemia secondary to blood loss 06/18 methylp redniso lone 2000 MG Injecti on intraven ously 125.0 mg Re-initiate treatment only upon physician approval. 2025 active Iron deficiency anemia secondary to blood loss 06/18 famotid ine 10 MG/ML Injecta ble Solutio n intraven ously 20.0 mg Re-initiate treatment only upon physician approval. 2025 active Iron deficiency anemia secondary to blood loss 06/18 hydroco rtisone 100 MG Injecti on intraven ously 100.0 mg Re-initiate treatment only upon physician approval. 2025 active Iron deficiency anemia secondary to blood loss 06/18 methylp redniso lone 2000 MG Injecti on intraven ously 125.0 mg Re-initiate treatment only upon physician approval. 2024 active Iron deficiency anemia secondary to blood loss 09/19 ascorbi c acid 125 MG / iron carbony l 65 MG Delayed Release Oral Tablet [Vitron -C Reformu lated May 2016] orally 1.0 tab every other day 2024 active Iron deficiency anemia secondary to blood loss 06/18 hydroco rtisone 100 MG Injecti on intraven ously 100.0 mg Re-initiate treatment only upon physician approval. 2024 active Iron deficiency anemia secondary to blood loss 06/18 1 ML epineph rine 1 MG/ML Injecti on intramus cularly 0.3 mg once Re-initiate treatment only upon physician approval. 2024 active Iron deficiency anemia secondary to blood loss 06/18 famotid ine 10 MG/ML Injecta ble Solutio n intraven ously 20.0 mg Re-initiate treatment only upon physician approval. 2024 active Iron deficiency anemia secondary to blood loss 06/18 methylp redniso lone 2000 MG Injecti on intraven ously 125.0 mg Re-initiate treatment only upon physician approval. 2024 active Iron deficiency anemia secondary to blood loss 06/18 hydroco rtisone 100 MG Injecti on intraven ously 100.0 mg Re-initiate treatment only upon physician approval. 2024 active Iron deficiency anemia secondary to blood loss 06/18 1 ML epineph rine 1 MG/ML Injecti on intramus cularly 0.3 mg once Re-initiate treatment only upon physician approval. 2024 active Iron deficiency anemia secondary to blood loss 06/18 famotid ine 10 MG/ML Injecta ble Solutio n intraven ously 20.0 mg Re-initiate treatment only upon physician approval. 2024 active Iron deficiency anemia secondary to blood loss 03/12 methylp redniso lone 2000 MG Injecti on intraven ously 125.0 mg Re-initiate treatment only upon physician approval. 2024 active Iron deficiency anemia secondary to blood loss 03/12 hydroco rtisone 100 MG Injecti on intraven ously 100.0 mg Re-initiate treatment only upon physician approval. 2024 active Iron deficiency anemia secondary to blood loss 03/19 ascorbi c acid 125 MG / iron carbony l 65 MG Delayed Release Oral Tablet [Vitron -C Reformu lated May 2016] orally 1.0 tab every other day 2024 active Iron deficiency anemia secondary to blood loss 03/12 1 ML epineph rine 1 MG/ML Injecti on intramus cularly 0.3 mg once Re-initiate treatment only upon physician approval. 2024 active Iron deficiency anemia secondary to blood loss 03/12 famotid ine 10 MG/ML Injecta ble Solutio n intraven ously 20.0 mg Re-initiate treatment only upon physician approval. 2024 active Iron deficiency anemia secondary to blood loss 08/21 hydroco rtisone 100 MG Injecti on intraven ously 100.0 mg Re-initiate treatment only upon physician approval. 2023 active Iron deficiency anemia secondary to blood loss 08/21 1 ML epineph rine 1 MG/ML Injecti on intramus cularly 0.3 mg once Re-initiate treatment only upon physician approval. 2023 active Iron deficiency anemia secondary to blood loss 08/21 methylp redniso lone 2000 MG Injecti on intraven ously 125.0 mg Re-initiate treatment only upon physician approval. 2023 active Iron deficiency anemia secondary to blood loss 08/21 famotid ine 10 MG/ML Injecta ble Solutio n intraven ously 20.0 mg Re-initiate treatment only upon physician approval. 2023 active Iron deficiency anemia secondary to blood loss 12/22 hydroco rtisone 100 MG Injecti on intraven ously 100.0 mg Re-initiate treatment only upon physician approval. 2023 active Iron deficiency anemia secondary to blood loss 12/22 1 ML epineph rine 1 MG/ML Injecti on intramus cularly 0.3 mg once Re-initiate treatment only upon physician approval. 2023 active Iron deficiency anemia secondary to blood loss 12/22 famotid ine 10 MG/ML Injecta ble Solutio n intraven ously 20.0 mg Re-initiate treatment only upon physician approval. 2023 active Iron deficiency anemia secondary to blood loss 12/22 methylp redniso lone 2000 MG Injecti on intraven ously 125.0 mg Re-initiate treatment only upon physician approval. 2023 active Iron deficiency anemia secondary to blood loss Problems Diagnosis Status Date of Diagnosis Resolution Date Anemia Active Iron deficiency anemia secon alexus to blood loss Active Menorrhagia (finding) Active Cannot tolerate oral iron Active Vital Signs Date Type Value 09/19/2025 Body Temperature 98.60 09/19/2025 Heart Beat 75.00 09/19/2025 Respiratory Rate 16.00 09/19/2025 Oxygen Saturation 99.00 09/19/2025 BSA 1.91 09/19/2025 Pain Scale 0.00 09/19/2025 Weight 179.20 09/19/2025 Height 66.00 09/19/2025 BMI 28.92 09/19/2025 Intravascular Systolic 132 09/19/2025 Intravascular Diastolic 76 Notes Section * Med Onc Follow-up Note <html><head></head><body><div style=text-align:center><span class=clinicalNoteMacroWysiwyg id=[id number] macroname=&quo t;PracticeLetterhead spantype=macro title=#PracticeLetterhead><img src=data:image/png;base64,nYLSHg4RFzvBMFJLVAyLYfEQMPSFUYATMASPVRXbAdZ3XUEVSKOVB 1PIfx0a6XXVY JPdDX4QRMZxytq4LQFLPRGJgXeQgzOURtZRWV2yVZtbS8XZHZbZTYANDQgl6C3LbSJV9acCuWoq5CLes DjHV9RfOWfoZ6krWxAGs wChYfUe0M5AbhGD3epXw7GEhrfB8AFiSxPRwqzoWV9I/mY7JraPl1qkyAU99BnyJnOkR94FF4dU329ug 2Kz7XOcy/NmJl7EHyBOg EQlhMKy4sTGAhprncUvtJuVPk5HKCe9wN2RTUBjqsNZI/6kEBqeBaQk7lsNtXi15ykVYH6J/Q00IyKsc xDXxHnyh8a+sc3Hwa9lk iw2IfRc5fap1nZ4ioKCr0XcfoQVLt8lC8F6EAeyALR20eFh/cEwT4rFadMAQ99AIE0RR4JdL4KrtQgvJ VZEUoF68jXwPJ8geCYb8 k8Kb/n/ofIWwam1WhTAismzalSocGXXn0dT+qXCUkwJswn5z021qfk9KV8QNTTK2rRMhKS1WB1bqEMp6 k+R8gUuXJjz53Ll8/TRN 68XOb69Qk2aIXi2SNpHJzoYZn6k9qcYTturbPFk5h1gIZnh8oYMh+y1iVlgliUNNmzVodoOMfP9BdLAq n03dGutHeGyW0EdbQ6M8 rjhiloZCcZ2kBl+lE+/UXMqkIDK2a6WrBR66g4UN9Q+BGBRx7nZwRzPUcyhYFCNjUGS7It8yovoJXkEa As6mpBTq1pg5/xd4dc9V fcSZLV1bKyJCxjzuoinu+9vKOkyERiAarJRdliyXfj7K2n+4fer6Hni2xH3MKhc4IGg9uxyZs3T0dvrA aWlpRIMIkds/Dp9h2LnQ JI9ERyt2gDDdlQSwVOi6ZGeKu639Dbi6WVm089/W6QCmZiu+MmceMW7dkNHx3w+qvzfIAFE7dcnIh2Z9 Je9AsX4P+iOm6b2IxRUW 21dWiniUmTpDz6zDQta2ZTp6htmq/I7CJgYRw+NVbXVnqPCd0AJCvUedVjMfXlVVs0JuuVAEo2NsTc6d OHCRTVBHMIWHgkJiea++ +24DCCa4rq7BxgievcAVJYVPzDT/L3GZ2ojHUXudIemUK4YjqdsDk1AA++v7VofGE30jYZFQ4SbnRBzk eNBd93aM5898T1k8jSqH 9474rcxrjFP5RniKl1a3bWJL9yH7ps1tBTZwXi/BJ4HCllTXHeII4+Us+2gwATAb3axIEbnmvJl4cD/4 3esdoIonVZ6gI853Cx/M 2HKX1kIoyuqwIC2B1svRQG9qTNs90rt7Ep/bccDw8cAiKk094oE8JfV9tPMCjNRTRQfrgs1mIIZiPz/E F9WbzqABg38fBusN0wNW LwQkxz4wcNVY1hQCDnhz37vEtCyTUXxQEBjtXWAagJIs558qIAe3+5zrdL5bfeLfEjs/L7/p+TChQsXL k8NVWQwevWgns8qhY1/w gCCRh4iLJ5iOwCa+kyThr6UPiaQEI4u2GvZIzQXsQ2buwT/+9+yPlS66YYK0zKmk19Rr2uRGKiDhaNLH Xuk0oMTF0BbaEljVxEPT XRsdO/ew+Tk5JR/9fELLy7cTbHiFuVrti9mIaVgsB6po+WXNHPR+XVtpn/uueeazTEEBEKJ+MuYsWPLj 7IGMSi6hbccuVYNKR5Oc HDhwoWLPwazsSrWrVtXzqKjY+VNmIV1Rsy0+JGozT8CLUlgh98aCXLcab+7c3oDyvfP/LZCKujXbzxmx KAeDQy9ifdJoi926jvis 6/7PngM45Jht56vpcM8Aj/8cUeAMH/GuRnGApqFQaHVZ4gTjVEFJokCqZszU/W7bnqD7gAzck+QC9170 j7foPDvFbqvq+5qzCvc8 jeholKdw9fgPs2Qnu93u+c1qcqURWkQwj7wH0cNlgPhkAO36n+i8O4ty3vyxm564NjGCnlvLIt+/DFZu 99vlTXTMhzOqxbuajvU1 ePNSo/nyLFRPs9j5C6bYTTjRpuurEUDIP3JbMesw6+YCl7YEB/776Vep5MjVt4lLfsrsH4BSWMnhdugF 9ZJ85io1glRCQjSUQYgD Wf3zxCupJtQ4kQ1B1tBtwM2Q8+PcCt7XgmncbcUZW0XumJpUhmTUkhJkkRBqMIRDLEPgj33sqFDS+WAA w+VgSiaqp2s/t6y4tUWB roCxIULFy7+RAq36EDPODsrBXT9+IDpjEyTzBsazaluXuMwGGn8phwPOyb8/bEx00ilrtbEQ89DrW6nt aysLDNt+oydrq+Mikp95 mqprvSmi5WUGyfJSTxc1xmClcPp32x03BWu76ofNnKp4ghcvvBpe/DsFxU9W24/ccOIt7H1ZY/gwoULF y7+LSnid874A1nWIq837 PtlbdanCoRd06jP8KYJZXlR4m+A+GOlF7YbHOHydVqY3GbW/B8ygma59jNm9xY5/LvUjliGkYPSUF4c9 EJpYNAu81L90mb7h1wjF QaPaMOwZKdo5S2GjuZHTcLVdJVH03OHnXvyjnWwYucPwVrvAYVDCnoNNkznUKpJbNBu+oUX/1DCAnZh2 ESJL3x6+Vsd59rjEMCCt AxwtSe4vofTUGqfvMx2FExvOEhCeZd+qzhnd+mJEc/aGVqX/iNP9fK4pF1P5mG6WWqP9bl1QQMi2aH5x tu1B1OQi1gOoimkO2BrQ cCFQXsqPAp7DWmLUF7DIjY9D5jzRKzPDkpDj/WdlA4u/3v6DfsCnLDwd9OXD8st33zNu96JKWgXpBER/ QQptEg55IoZBgKo508mb yz3iESoreyu0c7EAf0rlPqXStV/KX7bpyTSxZvB9xeM6KH25o7MhSPekQVm1/4RrGhyF1aNgl2nN+xy3 ybXw0xLXBHHl3SFXMji4 ANWrF4zTGamI3ypktN+EdDLkqwdleQFegJ55mr8jkTRvz8q9HIGI+6fSqxoTT+wdYRpLrtPXcF2YjIK9 N7mejWdvklvwR3NFjnpx X3WIABnu/iLW2qxZt1isV4UC9jgXAPREWiMw14Jlq18J/M9RxRLcdajJ9Rtw0vFLnRo2VcVnm4U1CyuO xvLo+o1SYMcmCbio/ULl ZtdH76dNYHyz6HV6fh/zp5f0VRhFq+cvONtINYwGpQltIMNLVVxE202J6ODzXz0jShhWLorRTAgV50/1 Zz2r/4oYbwHQj6+sdlS7 N+WNi1Mr1zK4tt0nTpJzdl2kl3M3bWftbtq+820Xd8jAlOzyYb3E9BGyb31y78m7V7rtO6XiD8RswvCk kwRYxWeg3Vu8b5EDRoh7 N7GzEOvmG0RpGlpizLQK1Zfs50t5FvuWTXRnnXlZemwevJHFqmUr38Gp5Jy2svRwkgtx+EPqzcH0zinG 2tW/nuHQw1MmYcxTZ5QS V29swGwpxl9lgsn/05fxfdwWueqkQv1r54liQ7SP0Muz++jnvfKC+QtPyRA4rhLM+Amelia++Q9NcmAGwZj RyIJuv0kVJNJkUH7Xs6r wDpUg1kZdsyxrhL2xsFR/7fhYvaAvEM+lyAKdlIZDy8q2jYrSvq8XQsM87gHAqyhvx/HWfK5kinwnEg5 VAfS0vJPi0FQXSc5kbz2 xJf6y8c5icj7M/z2AG3NFEc3fLmoWxP/uxafq4CPeALZhl5JIvMnZYSHQOCxRuw003+95Ubn9o50NBim l5CIsiSuivI8efMbF3BM eQtNQEDB2xDMsW3xUhwcTHF0bdqisHPCHwgDtz4435BBls11nZNB21/kcX5FVQWFX9W+iiHKrnbJriw4 TBVdvM7+3vIX6k6Yi9MF KaErBfHBJe2t1Ofl29Io7Uk3FKBxcdjt/ahUv6oxm4X+1z+b/h3cqAvJ0pR6895UDrv6GiqfY6ZCELLz 3g77gs5nX3YeFZMU1XC/ /cErICW7+4xf8lpNZ/jxJUow4lwTyX64m9DFXdTHveouCB9uqCQKjitf4b/sw2ws+ldY2BHPe+jAt8zq bXsZncALrrR0J5TSx/py n5vQ1NBJFNJr0yu/P709TQZRaa9QoToSftqxZ5uJ284Tuu0ZrjfVmkDDy9/r+LAohmqxmr2xMVwxHT9S KYeSvjuOW+OEuWijrYoV Qnrhq2CxqExOjyBitnJTfAcWs4QdgjPyVA/HB4VIEhUFQHqsvPBeE6u+ygurBXH+9VMXTj4UyFChzBtd 1wFI0uK5SFVe5GmCJmDe k/mJNH407AZwxeNYD3M3zPfKqSxQENoPe5B5lbJuK9CqUOxt4FE/ZK+s2xsEpF1ZvegZu87u4sfw5H1M oMQEh9i7/ZnzGRoS22/K CUdoC3s/f8T8os6lwmUfvU32j2VqySwANho3Hf4TvpMA6Gd7Gh6C7Zs1HZL+Q8DBXhee03vogMgd5OuH qXXv2/XqLL0CF0jAWY/G /HY/+emDv7lqSk0RUrborcxD3loU7CJo/pCXCgyOJc6KGQiea4Tu+215z9PTIttF7Y/Du03wlVt7IadK JlYCUly+vOjVcd6L5vct BvMiBDTKg5vFCTVo2nOYCC2zGdCzBCxUCCDKXovEuJJKQH3VVsBlOwwJJZAQm4KadA3LrqeruKKfwonm RSSyCEgjJiQSafjXgRcs ONpMWBzqwUXg7myLs7uQqW/vrY6TkvInwoRSRtP/O+a8FtV2Ql2EGWVbkatuokrmzbpypPlkAr6Ye9Dn tg0ZkRCf7h91Srs5fbaL HXMX3DNduUKsvzvIBDzxH2LWnoQj9Jbhlbk/J5f1TelJ5WWHYiNtNzHRsOlplUWPzoNbWb8DV7lJHE0X CS7mxm2+Ju/LOC8LoElj H0QuzWNUKeYYAG9Crrqocmr9978V1QkVFcfr+F+a54ojXGRRuPpHPAR9ltcAb4XlSTflCiCGXupKglNm 7i4mSZRNfO0xgWtMrwWJ KJnrKFLWnh60R/8vfxKO3kvftxv9BePqDUNBHLGWLDdY29MiblpNSbbVGsiSUbupmhkPA8MY+MdZQHFM Lqtot3v6c11S+ae6pmr1 fpyvpDqsH9AV852dp6HZT7ma6hhK43s7hfN5tA5DmsZJWjDuA+aX/TD4qzmq6FphuHXzwhzJZ4qiMhQ8 39o7rr/YZOUnGwe/mCRG bV8/X268oDT5kMbzFRyzyNCjZx4YJxNb0zHamMxFUTYiFmkUZ8wdB0jLLpsBnYCgtjmGYW15PFDjQp5a w5WFROHrtsaH/oYFYcrO ckCCCbeIxY+QVClzbBNPgaKsQUVnFFnQDQpHuo1ZoehCXT0USLoM8USQCSm1o2oEj7ItaIYrhvXw8EcY LMRAiTXXMjO4GuHaXG9X LlDxOJVOpSU37HC2Jj+z54DoU+97RnnocLfZK2IqYvCq55NIIrAgi4erhbsscbM8EAkVvQ2GcJRo9Ifs 7UfSsWvSgiiWOiutFkJJ ERXYhcBERLIWZExHw1MksYmb4LxXVoHSyVlBPOyOh57LTUcFBLK7+D2ph/RO0lqJx0kPChxnQakFv0vy 1dSIEebbeq22LEHF1dU0 suRTYUt7u/rr2Kr6NJGvpo+z44g6w1rW/e5RF4Y/Wcbl1w6TGdlXeLUrTd3AeBgEyAG1QNd+VLlxmvy5 RipbjQbqpdM9Nwgi+PO6 o1IkUzX69gwbAnRm5Rn6ZCyOWE4obrDqCHWQ40phmYO1poUeqWfVx/zDEA1RTfvgeeAECIWi9HWs9sYC zCQYfoLD58OCFEfIaPZ1 vEvaavJLPC189QspqS9BuuaElN+nOqDAcx27hCBm6ijPbyx2LM2spZwo49GCXQ0mmiITgHfIo8q+f9wO OyPjI9OOQvgyCDJ6W8Q7 rlJAwlgXsBzaFu1ky1H9C8W1azVG0NAflaYBJbFh0EJwA2i/SUL73mr7zuVVZuDLomr+E0F8zlWbvT1C fB4NEQPWphxIaZ0Y4ryh qzVJtWhDTZKOuieiSB4wSPGQoL/dKRhAcM9WdUeXgvZEo9voml+sCtzzii6FY+yCTqhDfMiLI2C4P8nR GBQ+b2YUJ5wIUpJplazV lB1EyWnhVWqHKOlpCbA143zJe/0Mnf8jhg23a75vwq8wNpZOxFCEqVBFaeaYwJ2FkfScQrh/mcMRua0D Etk0WYkBhpQcTRJtMUZZ mNcWEdBxxYYBggwLEM3T0PsmX5gDBs+AZ4T50yZUIS5FnQJyG7O+IMspHyOtoTREIRyJEc1VVdC+2Bdx ATsMIVfHV1YokZ5BkIXk D9cgyrQqcLByfnhO9NKimIhinc/hXkHnhPBzgDP33jJAf0yZ6LdW5mJOFVHQANLNsCQinvZmRRfgCCpb sXvkAPjSWbRC98JP5SXC EWQttfTfR2mXMS/pXj9/zTrvOMRfRtSptSzCeO2WVeKUym2oRRMkyB51/S9uVOniC2YG9YFu0GCJzO+a Zkm6SzyvYspiATHywoxh jcQOjUBEhxKASKOkztiYaeUQ3bBNefFE7fJfYt3CrHPMFaE4iYfr4H5maBsy217QJwUmjf6D5oirjD0s 8JH/hh6PWnZCvUxfJ02V 6GxkxWiV/kE9ZkBdTj1XET1Wg4fVZ6RQjHiVdCKKuS/0J6N0DxMTJ7NTEEBAOxBTv8pNUUrLuldF5aKO pFI1jfSK0HnCEtIHSF5O rFKTJJqprMkdlQbCjVNzIo2UA4M2pkfmUvvAK9WZbDbMfoZ8wPbrPbfcZv/lBAeWIjcF+LBb9FdndzHP 3uvoDmAgOsv5C7ES8sCV aifAHruBD0QXYs4+dPmtDj0VguSV2jW1ueXRojF0oaUf4EwrOwbn+9LmfjjisKsRzFA4AmCnP5j45Dza RE8QTMmAQAbrbfQmKHnJ e9wLHv+38nMPJBEUbvW9SgvbHq/JfLJH5AOPhsD0ZZGyqArA5PwB8CYLjOz2YnAGUmtfBJPPqJ4S1xHP EVFKTLgmjJpfUBHSc+uI +4Wb92Gte7oNunTBgqiE6TtNPukhiZN1eEig6hJelxhNL/uOjD4GDC5rmUNgQcX8vpTcOvqS9+WhymIc VamMKWvJk2rAQdbva4LG 8lwuVsUvQABY4tHAGKAupND5hQ8sT/BuKiKY9IuEIWP2z3zZC14QpNShQkE1QrnHomP4FRbEZ9lQrmoQ AMJdw/RFpVZwYBzcD/h3 kUwX5rwer3iw7L9VgbYShj/hW4amdSP0joBUrr5avAHOgwfhaFug4W20t1YYUxYWwxD9JDbNeeiJ5HFT WfMePGzTfWB4alsePxi5 UmLdcaEW7iAONPP6CufK40q0OdFsjReANWI6dErwUOIiRsT6KyYEDcFjtpzTYgua3H9/GodaMvsBSotK CGi5E1tiUmTnRcPZ95SH UkFlimsO0jYfBUkHiarfnv5MEXftn2cEmL6hy5hFryLaeuW4liUuFpSkC6CDV3T2zGzPidEHJa0ZzHAO yJTuDXQFMTOUspJ2igsT vHQkmxgC2qLZM3UKfBU+9DUx2sN4DteKLmV9QPR1E33WwcUjswbwxfrfVqSjWKzwZaPElAwXmmNprGY3 KM+agpYQOGMHp/77gA/c Sb46G4MYimP5Px7BedZ3Aqtj6OYRLiuV+zVuamtAHd7tByl7wBAxPVc7Vz/oq1isW8cgXGT9PtHkZIIX CdnipN2sZ+IK10lInPvj EyazakcvMvBTSVH1JtVZ3sQnwaW2jo4Gz2KaKfsRboi7V3cO2bF5mEqbWuElus1twastBBc775a/Zsy9 +zvl2gtjfHDDu125rtYr 9DLzWIuk805uKgGB7f/TzOZ/akg1oYy+rL6RjAb83Hp0eQ9zGfbQ0Gg5+0G0wdziB1Oi5Usp8kBqV41p vyrAgYNLhkGMJYRAzgaw 40GMEFT7/h/ygURFKjUjgtyPFNNKrCTPWTqFrIJDWQ0rPiRitJpYBK6sPY33sKcX0FqqeYkHPlySxQyD kXAWXLLHoAxVL72UBfb7 B4BLxPxdijHdEiviMxj4BJ0n39Uue0TadCJLV+bfIN578zzfT9Ufr1te+t2iW67LqvpFH9758VvBFeAc fUUgxq2c5NSChrjLEw8Z klar6KOkLbf58sSeQvM6OsmBU8JbGBGz5dSv/Xj5qkYLx/bM1Zg7rjKsb4C4cGUgnqP2kfRKFi6SKmCf Jb8/QL9lXqIwwxHin5bR hOTpMfA6+BcemQc93cT1dBU9tVPil8iU93jQ5kV9XHP1K7kJts5fGRczrVIA6UkCS67bXnRXWlodQh8e 9D7e1XMHDxcnCP3ItawC uVH5675PgEPkATdU0sZVP6pgROjxjWigJe2O7mJwNcqbl0L16NPQTZtXg8SBFdGaK8RCnJdwjuUgeJIc ft0ovjCcGVzn65TPmzRC LXqAneGA+a54PkpVrnRnTfIxIhhfxz+vFsdf1FkBtYYL38H/VwHaxjFBfjV7gDlHoZKaYJL2FY68LNEv ZXRNYnpdR1oyESGDDpUc DVG0YJSQLKlkvHQDBlChw538USxDGRCNRMln/7+ZFk+iOUWGs7kLGZEO5+UQ04+W0anuGfncMkvqqO1r U/YLqwVSxfbgfTwgHttU R60orGx8Tek0SUYfEw7/0oWj6X8fHc18kgWdAv93acpTdNFztz49j70y8a4WyDVssNQqJvmEhDnxI1Tc LrbJHiFVcFeQ8IXSLKzR FhNtwkRFlIVRelwZORpDrpPMcOluuFCY3TgDW8OTJiquMHHStw0cy0o9VgTWaV1cqRjfRXBFX5artNJu IkSZtZThyylaLkyj1zyn zlHBUYzDbQijshBwWyVHp65U1L62v6kAcNgpKo9RHvJy7TRWixAmTsfBfgxGS6Orop+HsgfPyBk9w66K N12rNB5EbPQ6XBrjBLU7 ol3IXwdOyLJHsTrT4DxITExmLIGzsCV4NUF3rfUPNdv7nODQq0pHYwn65szDsp6Q5ugyrM8WoRTMoLTW snfskkOO/7jChjiiQVH3 OsY1q4gxYnzeRrmsPBgN3njgusTAeO0FCnLkfclUTtkxeEpXOonNiKbPYMFHXBJM+Xg08+KCBRyJ2BBJ j6fX2Y/do98/RDm5vRAE SC9nUbmT9j0Q6wjD8gXeE6+S8YdNgfPFLJDMi08LLUZy0FxpO5WVftkwN5TyzLGnB4aqEFqB2bxEnb30 LEC+RytevKNe49tkr52I M03APluHvXtxcZ8bGBwB4lrsfmS9ZG6I6gHsfSCPJxmey6nEYUVPXtI6K9AXPtbWTVa7vHqyDPkYTDwi gM1jZuXt+MzgLP3yPcTy klV3DBEWhnNNVTw4VqJSEHnPNtXSGEulPPmhj0Txk/VqwYRlCCq3DWUR4X5YYXB3sXV6WVpnXTTz8F7D NZED8fnfeECUH3bmZfcK c3Yvszr0ru5x1f4l3oob6cLpw8Pku+eCq6mk7NGli5UMc1Dt3XjwVom5ocKWEeHh8C/Qp3E87To7i4Z3 erzU6zHrEcPGhkc6mrcL GAwjN7ZvmG/i5qhxukg3i91eRo5fB4gvRDUkerxKsPYifgKJXkKEVIY5lO7TIzmEqj4dBiErbZLqeK2e JCfB3ZoO41Bm8JGe7eXC OnjTiWFxHm4pLf2KiGM1FXyK5WJvXHxvk7kfKzGgZPVvr4RenWqBVvMJJMxpYUWZByY5rc8ETKE9bHvi riKzKwxjLfgh1qo0rK39 Fh5+miRjtsAJr+4HDUEjGkJQYgmJ3BFKGo0HgP6PS0NA4fBV2koMnpwrDerDnIfvdJvZyVZw1Of6rluL TZxAMvml3SMCDQNLGAmB ajoi1ctyEZ+VI4pFE5d6TjqoB3Kh/svAWLBmhiJUYpxmOQ33ne5tWPNstY8YvLUd9kKA6KoglJVrvJlF KHGS0GKJ3lWiSusDPMbv 8XzY6ftNixv4076/0Bb6nH4y1NJ9N5qEXoGIagEdBXg0Tj5RP6REf2cchGP/pfIss8/UaavVkMNUSAYk VC24F8DCdczH/qGeHVSk 1yoapaRzqPX5smCfF7N/u/O62TF/I/oMPhX+qw4uv5PdtX2YQhTfMK3lwOIlhZCqMajXITAdSG5+fEGh tINP2AUbohowk1MK8K0m BZMcKvCnrPHBTgO1qh7QGeptEbtJUd2mbdMzM1LWvToNXGTRgX4V8SekBdzCUXNLAsnX17FIlwQRH3Y2 rtdxs4dU/jmYpUJBd6Vn OT5wLqxX5g4KVxhTd0MhS8ASL3Fi+EyCmA6uJZIUFRiqNGDbFIpuE+cyQDu8m0+IMZv2nveoQpsc0yk2 bjCIKO7UoAmtWGWm0UQH Kp4kbkE9CNz/HYiYrNIoD3Sg8V7y6RsLN0AhaNLl5uSMd1AJkjf/z714mCvpOWGzC7G7u/xQ/nRjDV7r 8oB96S/8m3pRXI9ZmY9S xrmmwQ77XGbCE8OsjdSHXxjuTR1CTC4fPzHktiCTFK1IryeixvJQ5bKflREe4MrfVOo4FOPUxofRy2y/ lWKvQsYcLzgqiRd14I8S F7uvuZwJxhaMdAB/9z9Q+IC482Ga+9tIB3a+hSm19bl5BpJmM5a1r9aJfoY4zXlJOq56S5aQfYlOkSX3 KtulkhVQCobbhvHDGYQ0 mhIt/QyThr1tcTXILKdUy4ORMIMXnNYVKYUpPeinjOCKTdYArWnFNJcEAgfVlbObjIveKGTFAQxjj0MO Y7D15spVhFmPlAfuG3Ss YQPF5KpfLWZzGfSczR4Zw0MrwrnejPYWt5fkE9UL6zyWA7NjUY9E2iBxuIZrSZjAtpljGmad+DZ62DTG WmXXkFvNwSDf45GdD4TL JMZA7sXWP/vmwD3BI1Q3q51iHRZCmNalkCSJyWgOJuxLj5Mq7HWKps7M/NCS6T9zv8M1jSg1uMMjEMwS PQERAnYIcTTDppwgWZ2A +3T2GLpKjmOVGqqduTSnf6abTWwNumtfsA4n7uyw2O+XC0R8lCAqp6CweRyGrCTvwdzR8CsbKWZt9T2I s8Gm1ObfTxrAphO16amM kl971qjAR+a13UMr7IAICafG+PDO5Pb38oTHarKdeRCEQ1DgeL4Mt+H7rozSNk5EsiufpYVA8T4Xr9Y/ 4isvDsrf5lYsga0mDGE7 yBBALmquWOnGm3MPiDd7Do9Cx6H67I7fvY3NB+jXYkrOkKO+4CkvYWvIqOE3ZtvhU0nPcMIv/Ap2pS+w N0UkojzFDR7Q0B1IoAv4 0ddcrkse/f3Qhrawi0XU3oXV6DLRr4pFbwQEy8OQzQ0mDYHI+3ksXdnNy7lWdFgZORpnhYMAbDIBehdm 1HhMeqBe+TVkU/J0Dsay Z23rJf/DKonr7+fLSe+IAKiBvLtmDOrx6cRfS/L5l9/ppIaW8rv1v83lKUvFKdOj3N5RlayRvyYxeqHg zSxwoGiAdPSQyH9YSNSk 7c3dfRDcsxTefqEzwAJNQEkNHi1tyPiB5WpDWlkwFojM29NVtNEiG09Za1cVgSqfg5HdJegYJ5siAINc 5m9PVXmpVrInSY/g8LR0 ezVwHZIUQm9278yBdi7VLShx086GZkdIuNvMHzUrSjXNmTUDpUiVDPMovNpHYly3ANFUaYKGLgmDEJ8n kzICYNqgt9h6Yd4qDMUY iKmnD5nNlSxAD87ls+9F0d5bLBqRDRH6ZCcsNet+b66oC5Wm73kXyUwx28DSl6OsJCmR/EETw3U1JUi2 ZOzBWYNkWrhahhZ2VW7S swV5PoS7p22wyxZ+tn6IoDq2BdOHM9J68D/qXF7EQEeTkTBYLy6Agdx8JgeW9rlwqXnrl3c6ukbj/NO9 rbdvvMVgATePqnaah6H2 5Pfpk+Jgu0NtJLrGLgKsWPPg/aa7lTbybVtaoKn59NntyAZ+UBOxVd4v1yOR9uHpw6jGzYPAMKclxl/P bxVcPPtpuyq0BHc5iGxc pzBZPAbyZO9jV/7U1qs77mGfx2lU/aFcnPgibhn0n5ZjkLiaVBt0Afp2e3YyqyjIDGOPo5oeSOjkeJOR 4B8tE+4Pp6ARf4MZm5vx PTXH+L9oCQv6WteXHoi/gG/X/IneuzapfySB3Qt8G/aeXbzRdJmyA7WtbfhKeu5G4VUbTpA+V6EbKHxt 7thdqgA85Xvor4GCe2xP U4gDeLSc5sOzJswgc6VUz6S+w35NjXqo2os7p2XYYweEqOtn+T9y+xVC/B5x/OgbvNdpvSRPXQ0lh8x9 X7/6HDoqJAAUdnBX/uzD A7xkYXoa08LkookMenhfo9Io1fxygSM2yyPejWbWG0rxKC26oW3nsLaLFOISlpU3oj3b2wp9wnvVyGqP AE9Gvgsu9h56o1mB+SXH 4iu65s1qq4nINEcV2KyLmB5/s2eojcLXnzLnxoPJVZV3swmT/gv402Fet/tSXUmoBPeylTqJM3IYT3ci E9FtFNKOYFPwqzaOwdf0 tLW0esvQAPi0h6S7A0g1x5nGD/lCvGt/VXyV6+YzXNhe3NrU13wDWO9OvWJpLi+GCZGBYVPioqSpbikV SXbKVR8i/FX8NVGLGWPW 7vp76IqgdEy9/XRsvqd1+QfR3XLkWo3esskPNTKWYatHJqer3P9GbYSFpfedefQD8ERrgPsmIM6uX7tJ WoJFJZT+Agz0Z1eXJlIq dGynqwocolqn8GnNW8EjQYZeih1zr6QTa03YlDa5PN0QNmxt9FQ9r3NpP2/oqk8n8Fn5r26JZ8oAz5H3 CSmo50cMIzhGw2mQ2dxX 4mSm4VBWkrmnUj6PjXWQ3a0Z42jFcK/qwTJ/75iyZ+quumg9cAMLojhGD+ALCe+kTd/eb5DPsuvXSGw2 0HWpZOnHzGq6tvQGYcql 9X4HNOiAUb9dvCtXApyXbDexQ1AIo6YO31/KD+tIgNAr3eGyF6luXUJ6KrB+0ZJXkYd+5g5b2InWVGdQ ZP360+C7PZkIQtixTSfK 4n/8gKNb6d81isAM+MkWsqgCxcuXLioQcRzYTHJZwq7+dUd+hq7zdSwozDTLm2cj+13QFg4C6f1FO9L6 ghy4bhgPHIHVSLC1oKeK PgYBPM8vJLACh0bicVOrAOI2vTL59067AmM/y0xij9wEnhR5omRJwq37SWW0xn+l/MQK9uupmBsOvoWO 3ukeaMYS9DPyPKTXgf1Z o8aS0ZADntyvqOmMlP+F2BruR4QOLW56Ukra1dO64pfYObj3XsH+Ro1u3M66ZFe+uJfBvKDPaN6dtP60 3Z1NwqM24XHMIOZBQEAY 5fjwecF9iUj9iHVZynh+7+RYEG+ZVi8VUYPvYiy9xoLIm6uyPmbtYIM6cJpVRmfiDZ65HFyr1Bb+e0Oq syqZ0tkBa71JbHMFdYht 7tMOny4BHeNkYzBpRvkJptvftPqyqtq2+5ACt6NWmEs2KHN2kCVSMv2CMfvXIqRI5CDamzFfjl7OELVF ktxzKRWmb0VyiRSbYVgO aMxlBowAdNhF12Ikd/eyLHXMHGPpELePUob9iUUfe7ZLAZQXGuXUkEp6FiL9sQbBoZ10apBURlRc6XZi 1tO395RUY1bDTn5R2jyq s6NqRlRsWtSG5eMd7vOh9sDbx9P3TA2ZonFmerOeomI2IofJudWlyTUTMT/T89nsOzsITwaAeIksty9q Rp8KJOLsn5n08pu3LnTU Oy8fImzwwkAS6NzNsewnPjOkoqDChr2bATZQTJwp8tdKdf3Ce0pDX4QFhrSXN08uo5sN/Oik6AKo3pQG N46G3Wk/9qV21KMju0cx MZlGLi6goq7rqvL5ww22TWkX21i1NfHbi1jSP1AEK19fzAqLJ60nOyto5CW462qIAt5QtwqZP+j1k/Bd kn5+InooNkulQks61gxQ Fh+lUTw2M1iZXzR9ooEl4ukgoH6EcflnBpAgWIbg4VO/zvT2zGfE3d/P/pK5ZdqmFQ1AWM5zhQ5bl4v3 FrpoNr80Pajow79JGHXH 6lCRbwu3aZjqXNlC4b8Qsk8Z1NohyA6IJg/YnESrFAtCUnQy271hCzrK+zOvz8BFMVNSHwoBPeAix0lr mHWw9lMljNFa+WwVEBkb jlv8yzibdq8ZS/RtjusBLVqnNnsQb/pfdHYZtVcYdtfGeFnF85lrCN4GDRW0twrD5wXT2jYVM+W5j7am 20Oc5mJZxrGv1nc+Rpm4 +c/hBkEj8y97n/U4eCh29SwWAAuJ33JK7A3Rw+W7W8M92P9cXzGeybApu1ys4fcJeTkEXTeAz+YKgVlR 0xtcsEnMlQGuiD2K6B7W Gj30LroMidouwnBYol5C/D7X/BYut2bGKfQZ2ovuZlG4n8jSqf+tMVIKSrzCibzJ2FH0nyeUI9YQq2i+ 32+O/GBdmu5wuEFgT5IY RgVKthFr0L3EoTdX0t3YBeRAUmqjzLTvfoT8yjPh7Ap01GEn1LpMXRFsbWAVulfufM4RPuQh8/tIwlFD 5Yf+JBeN3KLNvcmbTJsV w6g9b9dW+dt1v+7v+yh1uQw2+oSli6UFI815skcjSNAvbhXMLHwhHi3/H20/ljh9m+Bbpgh5YCrvp6rP iV3Sb/jcck/CJlSNWCB1 U3jjFm5JtqEzwQJBJzEUkEe4l2IDlYh034N37gqkAt1MnFwndza9pXx0SvTIUC8PKswQkqHPCYATSav1 lYbY+c+r+/dX4VkN+l7H Etp//RVIPZwG6esW37uqtxK26kLZ2pHovq/AEbFr0n15RbbLvA6O1KOKu/pde+RZf80G4feq1XMOPg8/ iwhJXWfjOuHyfajesSMf xcX6KJC5iXXGI+qvVkba/nvU2Ff0eA4O7TDfAcK8D8QVDjA7Qmd15V4T9JaHBo0TgBbBuQV3/jkvMN7J Sd4mboEgtWXpNTOwzAej ozPdCVM7zkcdh17RFkQH/ium2g3Kmk4m57IsqMABI2z3EjtHc3ynyB/b63vPBN4O0hacLVp05TEfx7SI dnlUfCpm3wP6bWPaxTEo l9H8sN0653DEbkSjim691y/rlXdqlfLPqeplFnXatnYx+USrwSOPBoPjNjdsNFvdYEZx10DJ1Gr++nxJ ko/DKpoT4qKw+xr/d6zx Ut3CTLyGK0eHhd49Uk84e9U4xLU8hsVq+KmCuaykachBF0k3GE0pXq2eVMnDxbAcM8MNEvUd47DeG6a1 qpwg2EN+Hh/CZSpVmex2 Ex1SpsVuM9nNXYFy8Q8qzEY0xe0YSP7JQGqhql/5au9knLnmmjJL84axR0jGoCBW6u/6/D8y4QlMwuF4 wm6sfzkXl65xpnh+rL06 ktlBoNGDDFoW6h9h+a0zlNrxkYojf34V4bfa30w+1jb6/rLKupUPCCdAxeAbWNTidvIF9VkW0EcKhMCb KiDyAv80w7T02BcLmliZ T7xcx8LoYeJVH0oN4qD5ORLB+trfiRwe7O6kCQZnWi61YUrhB+bo2TBN5qL6dHH1wa/R47lu199dpdEH y42Pjwjm2775ZeBNpe/O JTOrMWnrAKGre2Z2s56cdzMoUdfkmAAzUm9WlgHpIxXKmGV4f6olCsKse7IKAXgW7EGTr9qoEFe2SbUt tFVJJp0EGqe+hr7937l1 ZjDOJ9qSWsLFPKdIa8Yy4dDs33WvQ/+9h/al27v0q7jh/wRZRxsLHSuDuq+EgyGXAvj5/zQVsV9QeD4F oPBgW80zvTmd01aFXhOY eXywAcG5O+vDGOc/pWRsFCqRutXxCZeYcZ6PD/oL02g4j1Nnlk6hVnhu/yzSzlKGu9rjQACWyntEn3wr ZJY/H820/J7B+f7PwZGZ TqMwu57avd6lmwToGjqHwW7q6QgRkkdLjNvP+z5k6HfSZ1X5lPjbcOC7e7En48bkhhc1xjxBWQL7rlDp tFZX+sxyuxgAzHsc8a57 BUx7OMzhg+4R5KKo+3w+Typ2dbdg4PPxk8O/a9j1/OIippbqyogOF5t5cuPIhmQAOAjrdvIkrmKZu7F9 UjXKFN/UJ9/uSSZMTJ+T lfxeIi/3cXq4LYsKLzxaLvTlj5kDb2mOo6RWEFm3rhcvALWIqrQjaVfirLxDfdR0gFbz/U6sAoAh3KRR bYLZt2ffwjnoDhb6E3BJ DP4sdUgCkbcUiFNCcDkWkVMaA1cj/teJGPd+5c3sD4cdixgyc4y5N+y0GZ3YNJJdMxgoJFbAb1arML45 JpPrQniEM04GXvoYZN+/ frMM8hfnG52wuDRvDPCBmLetg9CWuGv5OjGiJ6OQrFv2G/YusHE4bd4F6Fy8aVU7QQ8Q4kXvOLFeqgSI ppaBPNkeW+YsnU7oC2lo 29Zp+lF/dNzF0BPGANAesRJk3km+lgflEiSEMqfR5okSTIb/vYsHSOokwIOWOMKqdyW0A5vfpKWHongV BiFhJmlVkS/mmpsRSA03 KKxpKmWoY+XyMsvaRpXfUKjl0fc3WIXJigYy0qI8uAQ0DBchxLSFXxQz4huXjIxsTX8YE1Ieo4bjZXHk wbMd6S1PdjoJh0bZOGPG WjefUMBPgRpIl2poR5WL6raNnHhRYe7rO+ZLOv6jcRSswhV7UsuLxJH1RFD195hDpl/zjhAU7tWg9uKL zwOtAP5rK5WrHFYs/Sac 9LigDaTJ1wfTmFGztm4m6PrReTg3RneJxliCuegShcx5CRK1Hs1EP/aFocEL2D9FFVaQcjdpVRu8833U t12G59FWfuwm3l3fGXzo f9gyO78K4Jgjgwvvs0tWXeD2f61oa/puGdSzkg10jU0eZspX6ZTVaVyyI/im0i53K2lFSk92PxN1Gqz4 uPm0ic25lxoTZnmJkWfW GBatfA8eDvq/bj/aH+xs33+rqhNAQK+LaZDGc5ZNLn55n62L6gK6bWlWZP9pRj+RXZstJNusFhYRpetF h5y5IbEdLqQCVC5ViRXg bUVbGyzweX6h17TOMNOcNixCl5kT89e4PNzspnklUA05fEr5+4ZvE5t86rPjGyJMTZMfZMymZPUfByle Bs7trHrTjfG6KO1HQES8 wVS0zYjls44wvx9M6Rt5as09H5i67TT6C80XB2Ru1FD99dli1sXGyiuwz+TIP2V4BS6IKTYw4L37NSED LeZkuHWvZaQaF4wXn32f oukzE+2eyCkGDKzSCDW0mZP9BkdP+WbHRkqIs7U8JCVuGgpvrTckwgbJl64z4i9W5Uh75a3YtVxWZ42C iV7sZSlUPkdZhCWdXcNj QqRObwPjqIVUyNKk12+LpfaCegADwL2yxCnzXoTlPiFvbgJNbuFdrbr+r5p96D71SCLqqYwjzwhUKosl slNxxbr+37mnTzD5URsy W/MkqiqQUhf2pU5njmqRxaUF2vdQV2mQ/Oxfj5D+7PngamI8edhDaElY+rViEMlixyzuRchMpER2jS6m dFur0kc93GfU86HYQTce XwDvs13ZHK7tvHeqVPT0iW64yl0/NEy2kGVvRnd/EuitgUIYFY4+dskfBtOD77G8tXQq6fv7C+sHd/ep 4vWBgZyuEYmMgT2XwvXm XTwyBGOOvqcfuRkAmEa9ha5EIp58W+SnvDht47Aq3GfZ65bo5VKoi3rFMePGUyJWf6OwkrbKf1PyiZfv Hi015+rz/JLgiekPZrAd RaXoFRPWCstlD3wGp2/uXgTsCKqBo+WuEEQFFvQs0KWsvQSpum7+1KvKAyPdsYYgkfJcYGtxCDNnG48l rkwO9Icz6mFUOySzQPqT ccpdtkTStnyFXQUKxhyq/pMa8AgTioNu/Omm2lK052yBm6SPasmUwHyHxnvv0J94ejLFMV6kiGmVKLsM QG1+iyzQVYfs+uqDiM/V ePtBTcC0LDVxLMGXl88f92jaLgJumPliOLXk3ErmC0kAz4Gmq52awsLcStFEEBh07d2eMJhmw7NkfXAI XD4oiTXqyG5puLfjiwBU OYKJRgVDTm594ksTHJDMXH8+1Dawm8oVQaXQHKnlwqr9T4i61aplPlceuwqaf2LBBeJWaTYDxAmXxGaC o9V2Md0lwF4h9uJSnnjX SLQXSnuCIymWy2RYC1bcHFG53teNKmv0+zwr3M3r0PUdzWxp9V0oZt+sOGhawTX9anLB/5n6w10aGP1T c5+9nDnw102hz5QCI4Sr fO6cMql/rSFsu+Cw/Uzc0/mii+qs2wCgt9JZqbGKuw0Tb6z7N7BSHOlgJSuwFsa/NaxEjys2hYqCRNMY C64NcKeR0PMi/3cRJnRC inI21/LfqJ+LrR/M+Vp536/Ydev3lZXqxbpSJbwjJf2maCwlp+Z1Sdsen5ijR9cnbTX49yz7kTFEsqQC e3/Pzn9zwtTAB93brzk7 mRC2rXARDqcMvtV+YOIGrmLZoGkjvtAGOwMIcQksvj0CD0ThB5OjP7a2A4O7ys2yoFxZRemgIAAMzb+k HFz77Y/G5JQ7Xx1dCxN1 7LH4xlo3I5ItpDGSX+G0c0Eh1/sWTjN7dekOdN49mn75xwzQLcnsYKxbbF3tUnuPxfN7nwO1RC78y1br xKxSM0sleX/+cXrmWTHV ix9Z2N+pRE4dZjLDu7RGN/9iGsVMRZuGlqQ60xITIXemYAycySGr1m7mf37nqFBSaGBQmSbcGmC/u5ir jdEA85S2Wb5KmF/p5VN1 YEwvlUh6MgPtnK/ko5Y2CSO5QpNie9NcLk+DuK2XhemNlGunl85YL4mRj80cJdkZVRLbuXkMFlwQ6XwL KROfsyZMmK0rBw+/vLzc i9JOaphSBEwsFqsaRKyLGcItpbk5k1TGGf12hvEg67pzyUHwjUdGyggC9IQhpEJRELVNRReBnqhqXZG6 lOn7Ukh559znOq2AZqQd aZ+Z1xI6ubbEP1D68a9xOZDMR7gNqjoz5HcbS7kGOmcfv9rMpVlUff+HaaX3NesoR3qz8xFXO+rnjLIJ /Jose+e8VYaEIwJAKbAU2 ZIRfE+VqXAOUvLMUbbp1LVn6zpW8W//f0fVRUFgng3Fm1K2d8BqmwHwP87N+36ylzUl2qS5sZQXPoVuy wpmvUJhxGNRWL5af3I+z QSH6J+TlRr1nowajQ14Vsq8YtmPX/KVpG/9KLYQ0ho0j2f8pYrT63dHq5qrux9mC5EMcJsLkUFuPkWcy mMAcjJQTXcl0Dv5tH7Ow ptkTeK0zPjbKHZ7HX00oxNiZLOgJWwphltF8gagH5U/ka2j/MpXPa0WAYWDvKnR1PKhaiRhqhb1h5fx5 Hstj8knpAlAz8Rq/dryI Cs2z0gCjv+7yFCSo41K/K07ve4A/8vpxNSGbLLBo8SaxTRYO2ZhNxmOLVI5aHELP94wdP1utMNy2rhQ/ rMTUuq96ICTfPXI98Fkh razPIz6hRuO3xHfxoL5Pf70h812QlrF4QMLTNCXcyJVWBIOw1gdvzWYoDR+Zrnlr2VLovJt26xCDz9JH pJU75HMB9PfI7sro387X n65l6PsC+ekw0c3Rdn4kgmKZxOsm1hX7Zmccl+/4fhdHlFXhUSEgjjFEkHra7Se1fsZYiuXNytXjT/oO MjAI5QkqebC+NC3CeIzW G6ts7ZZZHhvdw1y5gdWHwOWE8Yh766bDH3I8J3J3wrCEqUjvuzGs+dHyaiHADMqRGaqsDpJy3+alos4z WPcr4vB6OERJtkBdB9gY uERLpycNzv24iLlB/Jbn1fhvjzData3u7s3EK6Mo7/U+u9mP+Vujiq81vW2lMEkf6L5mCyYJ4oGhYX+p /iCbTCTJUkpd27yPu4be D6LtOmuIs2A84u9DbuBVyGUzF1x29ggPfuhSx7+q/elGA4P4TDNnHh4omA4yXgCdCdAgoQHytsu+ucss c8Xfy/tD0/qNWplmDWSv l8tjanyrJT3L0ak1XyR7M3CyN6RNq0+mDD/SVVI7QCKZsoxwG/1BD9Z9jHRzBN346clf/0kUm7FePLtr 1Ci08bhrUwquNzDq4C9T lHV6ztB9r8QHyz876rIHyJJREORF4jJp0nJhlFodQjsQ2uLo6TGLgZfyzkkS6mukBDqsejemmEp03WO0 xG8V7jpeyeCERZ7psWAm FK+ynCJExBRhVNg8mqNjDhqfNkaC1AX5prFaXbbIIqTJMdBBfpLFSNxmAWKuJ9YDSU1nSWuVzJ+H2DV/ +LLcC3MIJSQFTlGLwTeEaAW></span>
</div>
<strong>Patient Name</strong>: <span class=clinicalNoteMacroWysiwyg id=[id number] macronam e=PatientName spantype=macro title=#PatientName>ISAIAH TEJEDA TINO</span>
<strong>MRN</strong>: <span class=clinicalNoteMacroWysiwyg id=[id number] macroname=PatientMRN spantype=macro title=#PatientMRN>[id number]</span>
<strong>Date Of </strong>: <span class=clinicalNoteMacroWysiwyg id=[id number] macroname=PatientDateOfBirth spantype=macro title=#PatientDate OfBirth>1985</span>
<strong>Today's Provider: & nbsp;</strong><span class=clinicalNoteMacroWysiwyg id=[id number] macroname=MyName spantype=macro title=#MyName>Wiliam Jain [facility]</span>
<strong>Date of Service: </strong><span class=clinicalNoteMacroWysiwyg id=[id number] macronam e=EffectiveDate spantype=macro title=#EffectiveDate></span>
<strong>Attending Physician: </strong><span class=clinicalNoteMaSiobhaniwyg id=[id number] macroname=A ttendingPhysician spantype=macro title=#AttendingPhysician>Yanni (Medical Oncology)</span>
<strong>Referring Provider:</strong> <span class=clinicalNoteMaDavidysiwyg id=[id number] macroname=&quo t;ReferringPhysician spantype=macro title=#ReferringPhysician>Kimberli Enamorado MD [...]
<ol> <li>Patient continues to have heavy menstrual blee ding she is working with gynecology and trying to schedule an ablation procedure.
</li> <li>Patient reported that she has not had the ablation procedure she isreluctant to have the procedure as one of [...] frequently. She is now talking to her paper cutter abou t partial hysterectomy however she has not scheduled any procedure as does not have time off from work.
</li> </ol> </li> <li>Intolerance to oral iron.
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
</li> </ol> </li></ol>
<span class=clinicalNoteSectionVisible id=[id number] internalbreaksection=false originalname=Recommendation/Plan" recognizeconcepts=true spantype=section suppressempty=false>Plan</span>
<ol> <li>Review of patient's labs shows that her hemoglobin is now normal at 13.4 but her iron studies showed that patient is still has iron deficiency herferritin was 10 iron saturation was 18 this is likely due to ongoing Menstrual blood loss.& lt;br> </li> <li>Patient has been unable to take oral iron due to GI side effects including constipation and diarrhea.
</li> <li>I recommended that we continue with IV iron periodically will give another dose of IV iron today we will plan a follow-up in 3 monthswe will do labs ahead of time and [...] some iron rich food daily in her diet.< br> </li> <li>Also advised her to take Vitron-C As much she can tolerate< /li></ol>
<span style=font-size:12px><span style=font-f amily:Glenarden,Helvetica,sans-serif></span></span>
<span class=c linicalNoteSectionVisible id=[id number] internalbreaksection=f alse originalname=Med Onc Advanced Care Planning recognizeconcepts=true&quot ; spantype=section suppressempty=false>Advanced Care Planning</span&gt ;
Not discussed at this visit.
<span class=clinicalNoteSectionVisible&quo t; id=[id number] internalbreaksection=false originalname=&quo t;Pain Plan This Visit recognizeconcepts=true spantype=section suppres sempty=false>Pain Scale on Today's Visit</span>
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
<span class=clinicalNoteSectionVisible id= [id number] internalbreaksection=false originalname=Pain Plan Th is Visit recognizeconcepts=true spantype=section suppressempty=false>Pain Plan on Today's Visit</span>
<span class=clinicalNoteMaMcLaren Bay Regionysiw id=[id number] macroname=PatientPainCarePlan p arameters=LookBackDays:0,ShowComments:Yes,ValueIfNull:No pain plan indicated for today spantype=macro title=#PatientPainCarePlan(LookBackDays:0,ShowComments:Yes,ValueIfNull:No pain plan indicated for today's visit)>No pain plan indicated for today's vis it</span>
<span [facility] id=[id number] internalbreaksection=false originalname=Smoking Status r ecognizeconcepts=true spantype=section suppressempty=false>Smoking Status</span>
<span class=clinicalNotSelect [facility] Special[facility] OhiooWysiw id=narendra [id number] macroname=PatientSmokingStatus parameters=ValueIfNull:Not recorded spantype=macro title=#PatientSmokingStatus(ValueIfNull:Not recorde d)>Smoking Tobacco : Never smoker; Smokeless Tobacco : Never used smokeless tobacco; Vaping : Never vaped</span>
<hr><span class=clinicalNoteSectionVisible id=[id number] internalbreaksection=false originalname=Depression recognizeconcepts=true spantype=section suppressempty=false>Depression Screening Tool Status</span>
<span [facility]NotTr[facility] [place] id=[id number] macroname=DepressionStatus parameters=ValueIfNull:Not screened on today spantype=macro title=#Dep ressionStatus(ValueIfNull:Not screened on today's visit.)> Screening Date: 09/19/2025;Plan: Patient declined treatment</span>

<span class=clinicalNo teSectionVisible id=[id number] internalbreaksection=false&quot ; originalname=History of Present Illness recognizeconcepts=true spantype=&q uot;section suppressempty=false>History of Present Illness</span>
<span style=font-size:12px><span style=font-family:Glenarden,Helvetica,sans-serif><ol> <li>Patient reported that she has been anemic for a while, she reported symptoms of fatigue, not been able to go through her day without exhaustion. Patient feels that the symptoms have been going on for a long time but got worse in last 6 months.
</li> <li>Patient denies seeingany blood in her stools she has not never had a colonoscopy.
</li> <li>Patient denies any history of GI bypass surgery. For last 2 years she has been taking phentermine and for last 6 months Wegovy to lose weightshe has lost about 60 pounds in weight.
</li> <li>She denies any restrictionsto her diet.
</li> <li>Patient reported longstanding history of sanket rrhagia. Her menstural periods are long up to 7 days, and she has heavy bleeding. She has consulted with paper cutter in the past, however unable to tolerate [...] her however she could not tolerate oral irondue to abdominal pain cramps constipation. </li> <li><strong>01/09/2024 [...] 18% IV iron repeated
</li></ol></span></span>
<span class=clinicalNoteSectionVisible id=[id number] internalbreaksection=false originalname=Interval History recognizecon cepts=true spantype=section suppressempty=false>Interval Hist ory</span>
{ }
<span class=clinicalNoteSectionVisible id=&quo t;[id number] internalbreaksection=false originalname=Review of Systems recognizeconcepts=true spantype=section suppressempty=f alse>Review of Systems</span>
Remaining 14 point comprehensive review of sys tems within normal limits. NCCN Distress Thermometer and Problem List were collected and documentedin the patient chart. Remarkable symptoms and concerns were discussed with the patient. Any additional follow-up is indicated in the plan.
<span class=clinicalNoteSectionVisible id=[id number] internalbreaksection=false originalname=Medical History recognizeconcepts=true spantype=section" suppressempty=false>Past Medical and Surgical History</span>
<ol> <li>Menorrhagia
</li> <li>Hair loss
</li> <li>Migraines
</li> <li>GERD
</li> <li>IPMN
</li></ol>
<span style=font- size:12px><span style=font -family:Glenarden,Helvetica,sans-serif></span></span>
<span class=&quot ;clinicalNoteSectionVisible id=[id number] internalbreaksection="false originalname=Medications recognizeconcepts=true spantype=section suppressempty=false>Current Medications</span>
<spanclass=clinicalNoteMacroWysiwyg id=[id number] macroname=MedicationsTable spantype=macro title=#MedicationsTable><table border=1 style=width:100%> <tbody> <tr> <td align=left" colspan=2>Medication List</td> </tr> <tr> <th align= left>Name</th> <th align=left>Date</th> </tr> <tr> <td width=60%>Vitamin D3 (Cholecalciferol Oral)</td> <td width=40%>02/23/2024</td> </tr> <tr> <td width=60%>Minoxidil Oral</td> <td width=40%>12/21/2023</td> </tr> <tr> <td width=60%>Vitron-C (Iron-Vitamin C)</td> <td width=40%>09/19/2025</td> </tr> <tr> <td width=60%>Finasteride Oral (Proscar)</td> <td width=40%>03/19/2025</td> </tr> <tr> <td width="60%>Phentermine Oral</td> <td width=40%>12/21/2023</td> </tr> <tr> <td width=60%>Wegovy (Semaglutide (weight loss) SubcutaneousPen Injector)</td> <td width=40%>12/21/2023</td> </tr> <tr> <td width=60%>Valacyclovir Oral</td> <td width=40%>12/21/2023</td> </tr> </tbody></table></span>
<span class="clinicalNoteSectionVisible id=[id number] internalbreaksection="false originalname=Allergies recognizeconcepts=true spantype=section suppressempty=false>Allergies</span>
<span class=&quot ;clinicalNoteMacroWysiwyg id=[id number] macroname=Allergies&quot ; parameters=ValueIfNull:No allergies recorded. spantype=macro title=# Allergies(ValueIfNull:No allergies recorded.)>Compazine, citalopram, morphine, sumatriptanand topiramate</span>
<span class=clinicalNoteSectionVisible id=[id number] internalbreaksection=false originalname=Family History recognizeconcepts=true spantype=section suppressempty=false& quot;>Family History</span>
{ }

<span style=font-size:12px><span style=font-family:Glenarden,Helvetica,sans-serif></span></span>
<span class=clinicalNoteSectionVisible id=[id number] internalbreaksection=false originalname=Social History recogniz econcepts=true spantype=section suppressempty=false>Social Hi story</span>
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

<span style=font-size:12px><span style=font-family:Glenarden,Helvetica,sans-serif></span></span><span class=clinicalNoteSectionVisible id=[id number] internalbreaksection=false originalname=Vital Signs and Pain Scale recognizeconcepts=true spantype=section suppressempty=false>Vital Signs</span>
<span class=clinicalNoteMacroWysiwyg id=& quot;[id number] macroname=PatientVitalSigns parameters=LookBack Days:1,ValueIfNull:Not recorded on visit spantype=macro title=#PatientVitalS igns(LookBackDays:1,ValueIfNull:Not recorded on visit)>Blood pressure: 132/76, Pulse: 75, Temperature: 98.6 F, Respirations: 16, O2 sat: 99%, Pain Scale: 0, Height: 66 in, Weight: 179.2 lb, BSA: 1.91, BMI: 28.92 kg/m2</span>
<span class=clinicalNoteMacroWysiwyg id=[id number] macroname=Immunizations spantype=macro" title=#Immunizations>Covid-19 vaccine (Kiwi) (12/22/2023), Not given other reason; Flu vaccine - Adult (08/2024), Not given other reason; Flu vaccine - Adult (12/22/2023), Not given other reason</span>
<span class=clinicalNoteSectionVisible id=s [id number] internalbreaksection=false originalname=Performance Status recognizeconcepts=true spantype=section suppressempty=fal se>Performance Status ECOG or Karnofsky</span>
ECOG: <span class=cl inicalNoteMacroWysiwyg id=[id number] macroname=ECOGStatus parameters=ValueIfNull:Not recorded spantype=macro title=#ECOGStatus(V alueIfNull:Not recorded)>1 Symptoms, but ambulatory. Restricted in physically strenuous activity, but ambulatory and able to carry out work of a light or sedentary nature (e.g., light housework, office work). (Date: 08/21/2024)</span>
Karnofsky: <span class=clinicalNoteMacroWysiwyg id=[id number] macroname=KarnofskyStatus pa rameters=ValueIfNull:Not recorded spantype=macro title=#KarnofskyStatu s(ValueIfNull:Not recorded)>Not recorded</span>

<span class=&qu ot;clinicalNoteSectionVisible id=[id number] internalbreaksection="false originalname=Physical Exam recognizeconcepts=true spantype="section suppressempty=false>Physical Exam</span>
Pleasant 40-year-old lady appears comfortable no acute distress
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
<span class=clinicalNoteSectionInvisible id=[id number] internalbre aksection=false originalname=Additional Labs, Imaging and Other Studies santhosh gnizeconcepts=true spantype=section suppressempty=true>Additional Labs, Imaging, and Other Studies</span>

<span class=clinicalN oteSectionVisible id=[id number] internalbreaksection=false&quo t; originalname=Laboratory Results recognizeconcepts=true spantype=section suppressempty=false>Lab Results</span>
<span class=&quot ;clinicalNoteMacroWysiwyg id=[id number] macroname=RecentLabResul tsTable parameters=OptionalFlowsheetCategory:CBC,Label:CBC spantype=macro&qu ot; title=#RecentLabResultsTable(OptionalFlowsheetCategory:CBC,Label:CBC)>CBC<tabl e border=1 style=width:100%> <tbody> <tr> <th align=left>Lab Results</th> <td>09/12/2025</td> <td>06/11/2025</td> <td>03/11/2025</td> <td>10/09/2024</td> <td>08/21/2024</td> <td>02/23/2024</td> </tr> <tr> <th align=left> & nbsp;CBC</th> <td>
</td> <td>
</td> <td>
</td> <td>
</td> <td>
</td> <td>
</td> </tr> <tr> <td> WBC x 10 ^3/uL</td> <td>8.6</td> <td>6.3</td> <td>6.2</td> <td>
</td> <td>6.2</td> <td>8.1</td> </tr> <tr> <td> RBC x 10^6/uL</td> <td>4.78</td> <td>4.57</td> <td>4.21</td> <td>
</td> <td>4.29</td> <td>4.34</td> </tr> <tr> <td> NRBC % /100 wbc</td> <td>0.0</td> <td>0.0</td> <td>0.0</td> <td>
</td> <td>0.0</td> <td>0.0</td> </tr> <tr> <td> HGB g/dL</td> <td>13.7</td> <td>12.4</td> <td>10.0 (L)</td> <td>
</td> <td>11.1 (L)</td> <td>12.4</td> </tr> <tr> <td> HCT %</td> <td>42.4</td> <td>39.4</td><td>34.2 (L)</td> <td>
</td> <td>36.1</td> <td>38.7</td> </tr> <tr> [...] </tr> </tbody></table></span>
<span class=clinicalNoteMacroWysiwyg id=[id number] macroname=RecentLabResultsTable parameters=OptionalFlowsheetCategory:Chemistries,Label:Chemistries s pantype=macro title=#RecentLabResultsTable(OptionalFlowsheetCategory:Chemistries,L marilyn:Chemistries)>Chemistries<table border=1 style=width:100%> <tbody> <tr> <th align=left>Lab Results</th> [...] <td>0.70</td> <td>
</td> <td>
</td> <td>
</td> <td>& lt;br> </td> </tr> <tr> <td> Sodium mmol/L</td> <td>140</td> <td>140</td> <td>
</td> <td>
</td> <td>
</td> <td>
</td> </tr> <tr> <td> Potassium mmol/L</td&g t; <td>3.8</td> <td>3.7</td> <td>
</td> <td>
</td> <td>
</td> <td>
</td> </tr> <tr> <td> Chloride mmol/L</td> <td>107</td> <td>107</td> <td>
</td> <td>
</td> <td>
</td> <td>
</td> </tr> <tr> <td> CO2 mmol/L</td> <td>27</td> <td>28</td> <td>
</td> <td>
</td> <td>
</td> <td>
</td> </tr> <tr> <td> Calcium mg/dL</td> <td>9.2</td> <td>8.9</td> <td>
</td> <td>
</td> <td>
</td> <td>
</td> </tr> <tr> <td> Albumin g/dL</td> <td>4.4</td> <td>4.0</td> <td>
</td> <td>
</td> <td>
</td> <td>
</td> </tr> <tr> <td> Total protein g/dL</td> <td>7.1</td> <td>6.7</td> <td>
</td> <td>
</td> <td>
</td> <td>
</td> </tr><tr> <td> Bilirubin, total mg/dL</td> <td>0.3</td> <td>0.5</td> <td>
</td> <td>
</td> <td>
</td> <td>
</td> </tr> <tr><td> Alkaline phosphatase U/L</td> <td>54&l t;/td> <td>55</td> <td>
</td> <td>
</td><td>
</td> <td>
</td> </tr> <tr> <td> AST/SGOT U/L</td> <td>27</td> <td>29& lt;/td> <td>
</td> <td>
</td> <td>
</td> <td>
</td> </tr> <tr> <td> ALT/SGPT U/L</td> <td>17</td> <td>25</td> <td>
</td> <td>
</td> <td>
</td> <td>
</td> </tr> <tr> <td> GFR estimate mL/min/1.73m2</td> <td>112.0</td> <td>112.2</td> <td>
</td> <td>
</td> <td>
</td> <td>
</td> </tr> </tbody></table></span>
<span class="clinicalNoteMacroWysregional health services of [place] id=[id number] macroname=RecentLabResultsTable parameters=OptionalFlowsheetCategory:Tumor Markers,Label:Tumor Markers spa ntype=macro title=#RecentLabResultsTable(OptionalFlowsheetCategory:Tumor Markers,Label:Tumor Markers)></span>
<span class=clinicalNote[facility] [place]" id=[id number] macroname=RecentLabResultsTable parameters=&qu ot;OptionalFlowsheetCategory:Immunochemistries spantype=macro title=#RecentL abResultsTable(OptionalFlowsheetCategory:Immunochemistries)> & lt;/span>
<span class=clinicalNote[facility] [place] [facility] id=[id number] macroname=RecentLabResultsTable parameters=OptionalFlowsheetCategory:A nemiaLabs spantype=macro title=#RecentLabResultsTable(OptionalFlowsheetCateg ory:AnemiaLabs)><table border=1 style=width:100%> <tbody> <tr> <th align=left>Lab Results</th> <td>09/12/2025</td> <td>06/11/2025</td> <td>03/11/2025</td> <td>10/09/2024</td> <td>08/21/2024</td> <td>02/23/2024</td> </tr> <tr> <th align="left> Anemia Labs</th> <td>
</td> <td>
</td> <td>
</td> <td>
</td> <td& gt;
</td> <td>
</td> </tr> <tr> <td> Iron ug/dL</td> <td>63</td> <td>49</td> <td>16 (L)</td> <td>
</td> <td>94</td> <td>60</td> </tr> <tr> <td> TIBC ug/dL</td> <td>353</td> <td>368</td> <td>410</td> <td>
</td> <td>372</td> <td>285</td> </tr> <tr> <td> Ferritin ng/mL</td> <td>10.70</td> <td>6.42</td> <td>3.88 (L)</td> <td>
</td> <td>5.37 (L)&lt ;/td> <td>15.60</td> </tr> <tr> <td> Unbound iron capacity ug/dL</td> <td>290</td> <td>319</td> <td>394</td> <td>
</td> <td>278</td> <td>225</td> </tr> <tr> <td> Iron, % saturation %</td> <td>18 (L)</td> <td>13 (L)</td> <td>4 (L)</td> <td>
</td> <td>25</td> <td>21</td> </tr> <tr> &l t;td> Reticulocyte count %</td> <td>
</td> <td>
</td> <td>
</td> <td>
</td> <td>
</td> <td>1.73 (H)</td> </tr> <tr> <td> Reticulocyte, absolute x 10^6/mL</td> <td>
</td> <td>
</td> <td>
</td> <td>
</td> <td>
</td> <td>0.08</td> </tr> <tr> <td> Immature reticulocyte fraction, %</td> <td>
</td> <td>
</td> <td>
</td><td>
</td> <td>
</td> <td>10.70</td> </tr> <tr> <td> Reticulocyte cellular hemoglobin pg</td> <td>
</td> <td>
</td> <td>
</td> <td>
</td> <td>
</td> <td>32.9</td& gt; </tr> </tbody></table></span>
<span class=clinicalNoteSectionVisible id=[id number] internalbreaksection=false originalname=Surveys/Consents/Other Discussions recognizeconcepts=true span type=section suppressempty=false>Surveys/Consents/Other Discussions</s costa>

<hr>
<strong>[facility]</strong>
<span class=clinicalNoteMacro[facility] id=[id number]" macroname=LocationPhoneNumber parameters=Label:Phone: spantype=macro title=#LocationPhoneNumber(Label:Phone: )> </span>& lt;br><span class=clinicalNoteMacroWys[facility] id=[id number] ma croname=LocationFaxNumber parameters=Label:Fax: spantype=macro title=#LocationFaxNumber(Label:Fax: )> </span>

CC: <span class=clinicalNoteMacro[facility] id=[id number] mac roname=NoteRecipients spantype=macro title=#NoteRecipients>FAX
Kimberli Enamorado MD (Referring)
John Avalos MD</span>&l t;br>
<div style=text-align:center>
</div></div>

<div><span class=eSignSignature>Electronically signed Roger CHOUDHURY 09/19/2025 18:22 CDT</span></div></body></html>
--- OUTSIDE RECORDS SUMMARY | 2025-09-24 19:07 | XMS_ITS | CCD ---
Author Name Interface, [id number] lity Address [address] [address] [facility] Address [address] [place] [address] Care Team Providers Care Coiled Tubing Supervisor Name Role Phone Wiliam Moore Unavailable Unavailable Allergies and Adverse Reactions Care Plan Reason for Visit Encounters Functional Status Health Insurance Diagnostic Results Medications Administered Medications Problems Procedures Social History Visits Vital Signs Notes Section
--- OUTSIDE RECORDS SUMMARY | 2025-09-24 19:07 | XMS_ITS ---
Author Name Interface, U3Bdzvlnt lity Address [address] [place] [address] [address] [address] Organization [facility] Address [address] [facility] [address] [address] Support Name Relationship Address Phone [employer] [...] style=text-align:center><span class=clinicalNoteMacroWysiwyg id=[id number] macroname=&quo t;PracticeLetterhead spantype=macro title=#PracticeLetterhead><img src=data:image/png;base64,xNVMZi7HOftEAHYATYgCOxDCTTESYUXAIFROVVXbPwK8WCJXCTADS 4LVuo2z2XQRB YDzPS6VHCBrzvz3VQCTDGLLfXkGodENQtMXFK0wYNyoN6JCIHjDRWHKELib9K8DaEEL5ysZyDlk4JLjj MjEC2StYWfeZ7bjMzRZp oQfTkGg0K4PpdDO7vxBu3NTjvqM5ZQrAiCKlbtiHV3P/qH3TceDx9bgdNO23GckYxFtW10VY4uH639ly 9Mv8KZfh/GtFm1WFoZMu UTakMSr9lXKPachpiHhgQaVXt8KCLm5eO0OGCVtcoNVL/1dBByjHxWm7euGsBq62dwGNB7R/F46SpOsc oJQvKzri0n+yg5Mgr8wg ve9UvBj5ane2kJ4afRXq9EfziXLNb7aE8D6VGfjZRZ58rAc/oIjN8eHlvEFP80PKU8NN3SfK5ThnMneY OLGGcC40oQfYC4dsEMb7 k8Kb/n/mnCQtdk6IpWGetzbmvVuuWJHm7iX+xQWCamHqfc7p006rzh0TD0DHQFC6lGNwUI8DF0dbIWi2 k+Y1fOgQMns36Jw3/TRN 06BLq81Ys5gORm4MKfFIttNGf8r8rsDFlrqjDFa1u5lHScy8hUFw+y1xWvaqmOCCjhMdxkBMmF8CuPSi p00fKdyYeXiA7JdvE8F2 bdpgvyCCwN3dMa+lE+/TRKcsTNZ1t0CsKJ04o6WB6O+DZPIn0rDtMlIHwonHTNPeAZZ4Lz7uwzpEKzUf Zu5grUZv4xu2/jd5lc4V vsMBYB7uQfLVtdcicrcp+2cBReeIYzIkeJEkcddGzr9R4n+8mpm9Bfn9yL5IDpb1LUq5xmbYt3R2gbrB aWlpRIMIkds/Wr5b0ZeX TK5GKal5sMObiWVgTVi4DNnHi272Xjm2MXv801/R2XFgLet+NjbcQD8taMKf3v+smcyBWZF8dvqIe4H2 Wc7FyO5A+bWc6e7DpINI 80bUshoViXeOj6rIVmf1WBf5jdvp/N4MDfIEu+YAbUYqwJQq1ZYUiPgyUlLzKwFXr3DogNMRz6EnVe1l OHCRTVBHMIWHgkJiea++ +73HVJj0vx8TpwcooeWRUTVZxLG/S0XO4wdRHWubJpsST2AkzfsLq0DV++z3HhmZT98nOGRO9PcrPFdn hQAi28jC3166C9u0kLnE 4769yvmdsZW2QzaAe8n7tGRW4fF2xu5aSKAdGn/NF7QBlgCMDcKZ4+Us+6bdLUWf4vzNShbxmAi3pW/4 2diktXerSY7hA925Pj/M 1UZD9xOggxfrSY2Y6ncGZV9nYYs04ga3Qq/wprDf3sPqIp564fW5GfS0uLKTmHECTDvbnh5mDZMdEp/E P9VaavQTz86eQbfM9aWQ HlRqjt7kjCQJ2qHISzcw44uPyFcZUGsVDGyvTNGuiZRt917lHPh4+2yucT2nxrFwPrn/L7/p+TChQsXL h4RVNVykbRrai6fzQ8/w fYKSo1aBG5bNgBd+mbYiv2JKnuEDM8e3QqNZgUBmC1fuxZ/+9+iVgC85WET0tJgn71Ms6bQDViMvyVUZ Bas6nSAF9TjuDfrAdIYI XRsdO/ew+Tk5JR/0nGJLw3fIyRvSyMgdp6xDgEveE5qs+WXNHPR+XVtpn/uueeazTEEBEKJ+MuYsWPLj 8BWCLu9msnjrQPUTJ4Dn HDhwoWLPwazsSrWrVtXzqKjY+XViDZ8Uek7+GAqpZ9CTInsy06gQZSzvk+1k6kIoteS/LZCKujXbzxmx OEjWNg5mhwAel175ilgb 6/8XeoG32Dfr81kfbI9Ee/8cUeAMH/WpMxDThkSJgLDP3mLoRWDWwkBpUrpB/W3bjlO7zMrlp+OE7955 s9qiBKxWdcge+3qaPml1 yiltiQzx7ozQa8Rsm94f+s2jsiVMRbUrw7sW7cRueJbuEP83b+b4M9pc5urtp117AjMQtflHIo+/DFZu 57ycRZTNjpAgyjppprL7 ePNSo/yzHHSSz3p8Q2jQUAaNjbhqCNCAZ9TkJtxy9+JQf7IMQ/590Zng0BvZy1wFyyseO8AEBCkawwqT 3LD39yp2buOPLjGRYTfW Rt0vpPawRvO2gS1Y6rSmeU1H3+AzFs1HmayzjtQBP8XakMmWohFWamIabOFcGIYMTKKqf90zwSVY+WAA w+SeQdfpx7a/q4d3iQVQ roCxIULFy7+NXt15EISLOhnFFU9+DUvwBpRmJtijqkqMiTxDAe5ybwVWro3/cSf51ekrhlED54AxP6sm aysLDNt+oydrq+Mikp95 jdmcfOsn9BBBviHVMyg4byZlkGd13k54HZd31haKqMh4shemdGeo/RoGeS0K64/gfLDc1C0QO/gwoULF y7+BLdsc500R7dIKi775 AhopwvfMmMp03aI0ZLYPEsL0t+A+OOhL4XhCXSlaUwN3BpH/C5dfws07mHm2kL1/QrEbtxPbZEQNL2x1 KPrQTEy73Z86vu6c2bwB MoFpVQgCQns0I4AurFCSrLDdLHP46YVqYeubjCfJmzDaYvoSAIQXpaENocqJHfGmZAd+oUX/6PIFmYx9 VTLD2t0+Sxn09zkWOFHg KggmWk4hmrERHdguPg8ACedAFnOgDk+qzhnd+mJEc/aGVqX/rGO4dA2sX8R8kR3GLpK9ms1KDNd4mR9f gf1W2VAu2uDlmqtD2GpL jQVBHekMVg3YElAEA6GJuV9W9uqTOpGRgvRb/WdlA4u/3j6TptKvELgj6LLD6nn91rJl04IRUnFwIGX/ DDcnKi48JySZsIj024ur zm0mIHpvagr3g7BOo7adKhYNqR/WA6ftuVZuUaH1whS7YS43c9WoOFbeCZw0/3VrRsgQ3fOrb4aN+xy3 wyLg1wSZUUGa6UDWIhu4 CNKvW6qAGbmK8jqtkF+EsTPvnofidDBvjB13lm0dvUBry8g5FEFC+6fSqxoTT+ubXHdQodTEiR9PlCE1 B4xfrMgutergK8ANuwxw L0PVKFfb/vEZ4knYj0ckC3WQ0msFVTNDKoNy50Oyh46Y/M7KaQNhrduM6Jxj7nCZrWn2QkKvn8G3WcdE xvLo+k8ZYKdsJgmm/ULl YcpX49kKTNtd3OA5tx/jc7k1TMzHb+leSJnJQNtGgEfgWWMIXIuH257H2IWeHk6uTflUQciSPJaB01/1 Zz2r/5kTzlHYq2+sdlS7 N+ZAs1Nj3qM2hv5vCkUkdt0js1W5hOoanuq+028Fy5yQnVshOx1X9ZKoq21x03y7U5wrH3OtM0YiycKg elNSfMep4Ud5j9JCYhp5 I9ZxZFywY5JrEwblqQZM0Ztg26j5UqrPYJMxxTpUttmpbIMNuaUs40Hr2Fz6mvEzqybs+ZTnczA1xuuI 2tW/trXOx9PuEhhXD1SZ R54thCsljm0ennv/71wckcxGqtdwRy5x33mtA3JZ5Crj++jnvfKC+TkPlGG1gyPE+Amelia++V5EihCDkJv AaCUml9vEBGZtXL8Vk9a lSoTb9wEstalqlJ3hkFX/7fhYvaAvEM+lgAQvqERRs6s3nKpUly1HLnM60wTKwmysd/ZKiC4mxzabTb6 FPbN9bGTz5ECGIc6ylr2 lHf0c2c9dil6E/t4KR5LEOy5dQpgLzN/qpral0RDvSPGop1ZPpOfCQJHSYOfBgi847+16Ors5q77HWtm g0QXuoAilfM8seTqK2NA uRuBNBVP9pCKvP1aWwnbZZE7tbnqbOVDQseBbx0562MZyb74aIIJ07/awU6TPVFYT0G+iiHKrnbJriw4 TBVdvM7+7lMP4z9Th0NK JpYhLrPYQe3v6Goh52Em7Av9IXAxvsov/eaSw1ovm2J+1z+b/w4kcFeG5bT3463DVqc8AbpsA0MCIPOc 6t26kc3rP4WgHABK1XI/ /cErICW7+9yw2huQD/wdOBfa0fwWlA08q7UFZfXIgqmaLV0ltDOFostc0o/sw2ws+jdQ7CMDa+jAt8zq vRyKmsAMxbI6I2EQh/py b8uN5BJMLERe0ig/Y536WYBMhc9AaNyQhgdbW2gS643Kpq7OgzlJfbJIq4/r+QAibdmqzw2wOQboVX7D KYeSvjuOW+OEuWijrYoV Qhcgp6FacNiYgwSkvyFLaMrEr6HmctQpYG/QL4TKLvIUNTmmoZArJ3n+ygurBXH+1WCPNm3EeVWdfAwh 1xUU4lM9SVJd3QdDSkMy k/kHPD937ACiwrJBP1T7lXeMsHrDPNxKu7G7sdFtQ6GoQZzp4DH/ZK+y8dfWbL5AtnyEj70b2xbd3E8W rRSCm5d0/UisKSyE72/K UJtaZ5o/b9H8sc7zleMgsV89s5AzqZoAPxr1Tc2OmuJB4Oh3Dv4J2Pu3YVU+Q8GQGusq03vwdXhq3NiR qXXv2/HqAY1VO9fHGP/G /HY/+dmVh4vwIs3AIohqxtfR1gaF4XVi/eKGMyeMFi5HCHzwd2Qy+289d7WGFgdK7V/Xy08yxWl5CbsH JlYCUly+cYiRzv1E3suu XcLeDOBHq3uEGRPr9rEHXB9qUzQgZAiSVYCROqqIyBPYDX8DMnKqEjnAOKUBd8MoaO1ZaqdscBTkprnc RSSyCEgjJiQSafjXgRcs LUmFAXbruQKq1qeXh0zUcU/quI2JvmSqyrRSCxG/O+r8WvM5Ie7NBZGzyjpdkiwdrswuaUtuYi0Jf7Db td0CvSFc8x47Kol4cxiB TZRX1INpaCXdatpQYMnqW5UVsjDz8Svkbdv/P9w6AvgY2XSQQvZnOeFNwTnnbQDVkzZyQh5HJ8oTHU3N MX4skl8+Ju/ROK0LjWjx E3MaqAFFRvYYSQ8Bvpvkaqn3920Z7DjLQnsv+F+c72awASWOvNeAIEE2ytvBh6NxKDztImLJJihQroUk 7b3pSCOLgX7qfNeQoqCZ YZqiLRYZwu07W/1bazXO7ufvizj7EsIxMTWKHUKFHKtI17HtluwRKcdXChnXVlzajgvDQ3NZ+MdZQHFM Jluyo6j5c60Z+in1dpj5 qewglUkzT8YQ377ny8EET3ix6ryC46u5piC7fY9JheRSNiMyF+aX/KV5bsrc5EfcjALrrtoLS0bnGlF3 39o7rr/YZOUnGwe/mCRG bV8/E921xCC2mXaeHSpkdZOnWq3ZJpUw7lZhuFdLUZGaAldMJ2xeM0jDKxrBmGHlvtiIIC23YVDcXa9g k9AEKFKxdxdA/oYFYcrO ckCCCbeIxY+WZVzypXOFqpWfZSZzIZcRYOhTbf3BpkvIWH5FUAaE6WSIBLz9m2bVw6UqcMBndcIz4AtV NSSVzCHYHjT2CtObAF7B DfZrJWPRxYT13ZB1Dh+z54DoU+93HwnljOjPY1NtBzUd84MFMvWet7xuzbgupwP5LJfUlJ9VuSXq0Vvm 7UfSsWvSgiiWOiutFkJJ XEUBxhXOXSYLAPkPs2QlfQih6QxNEbRBcPlHUFgOj77IQZzBWAK5+D2ph/GW4nmGi4hJKkodItlEy8dd 8aVLXddmbc79HVYM8eG8 unSKIAg7z/it6Zi2AFNxkn+b33e3q7jC/e5RF4Y/Rdqm8t9WWcrWtKKpIz0QaTuYcYK6BEw+VLlxmvy5 LunedUisswH2Azov+PO6 z1AfVkE30orpXrRe9Fd9WNqRRL2bjdJxJFJM73xehQQ6fzLalZpPm/jFOL8ZDerygtFXLKNt3YZn4tME qLCNifHS67INNXzNzMP8 tGqetlSAGF409WvbuF4MeigGiX+dIcFFtt73wNTj1djHetc0IL5uuStr06AZYM5owxCKsOuBz8v+f9wO KcWvX7DBDundZEM0Z4S2 rqFVbmjQtOueLs4xf8J2N6V8rvLW8EHjvmHKJbJn7DVpX4m/GXZ24jf9miOQMwSTfpv+G4Z5ncHnyE5D uQ1SOFGSaxeLiO1D6rmq vvSPoGqLTORZumowOB8zJVIPxT/oLHkXqZ2WxFiTmyXFh5cvhi+jYcotkm4OG+oOIqsPpQnSE7S4H4rD GBQ+b0EZV3oJSgAjzgaT xK3SaKvqDGfDRRosDfH274wNc/8Nlw5sag59p70smh7gIbSJfHAJwFRCmbbMpR0OovSeIwg/rvKFoa9K Bjo5ARoEteMyCEBgCORT aWsBZkVotATLmrsWKH0J8BlgF6bEGj+QB3O89tUEPB4RiSBrQ6V+RHgrQmKchMEEIOhFOv8PRfL+2Bdx UReYRGuCR5MdoM0UeWTm F8vwnkNkxHTpfroV9NVbgJxaaf/fJsMzrWSpkEW30uMIp3jH7StS9eGKZXYUWTRZoLZjqeOlQRfaJGmd hKhhNKcORiRU07FL2KFH LQTkbsRcZ3oCKG/pXj9/fRjqQZKhQiTvzLeTqY4QDiLTcz1iXYVxmR31/U2vLFvvB6WJ0QDe3LMMqX+a Ppj8SkbuMqvwQHWgfbmo xmJKgGERyxRZKJJtaxfEbpTV3tIOreVK9sXrYy8JiNWVUxM4eYei2S2peDiv786JRyNhdx8S6izmiE5f 8JH/nq0KZuJCvAwnQ89D 6GxkxWiV/aV6FlXtHr5THL0Qd4fPI5BNzFqLqBYWkX/4L9R2FqNJR7BXTRYEByHAd5qCGMrBzloR2aLK vLB8viLZ0BpUKlCJUR6H hNXNLOcmlXwmcSyYcJWhHq9PX8N2icirJdjUT7IAbPmSalS9tCdgRxkcBe/lBAeWIjcF+OAm6CufspMJ 2mjfVaXmJvo3X1GH9jAR wabJEsmML8PKLv9+tNtgJn1ElbGT1kS3vbWTaaI0hbMc2TaoOizi+7SkhyufmQrOjSH1YeJuU5h73Myv VH2LHSwPCZkyadUvJXpF e9wLHv+20uDJUGTOuqG6HfnlDp/SvNKQ8KLQviU0QCXnoFeO1JyP0BAOqYw3EeJFHflhFHZSkO3C9jDS EVFKTLgmjJpfUBHSc+uI +8Tc13Est7yEimOHkxcA2EsWYmxqqET4tGza4sAcjqrXG/pMcX2FPD9whXQqDnB2ijPeTdmI7+WhymIc JwjUPIbRa1pWFwwrn9RA 5gauTuYwLXHW5zPSBFHpcAU0kL4oN/PzZkVQ5TsSAKZ1j2fZI52BhSOtYjY0YikOtpN2FQjWM4fYyqrR AMJdw/RFpVZwYBzcD/h3 nNaR9xnyt1nu6R7EyiZQht/xS1gvhXD7siFZze8baDECpigdjQcq8A37x8PCVmLBmiZ7QJtCgnfP2NZF KqJxNExOlYE7zetkFcu0 BaQhmtVG0gIIYKG2CopR15k8GzZquAkIIKE8eCelTVMwKzC1LsQTTnHbyzkUGbxx5T2/GodaMvsBSotK ZXk1U3cdQtNkVnBK01IV IvSdsogS7yLeNHmNspywsc5UAKyha2rJcY9kr6oJuqCorcS7lcWlWsDpP5ZJQ0I1lRvDlfNNGb1PiPDO bDMoBAZMYVPXpgX2eyzR gWEvonaB5qJSB6DLxIH+9EVg5pW9GhsSVlE6WSF0A63AfsPuyvzatcfaDrUlBOjkNhKOwZqShhMluKQ6 KM+agpYQOGMHp/77gA/c Ql28A2OYjlC6Jx8JljW6Pqdq7BZLXybV+oQoofyMQl1tEmj5bCYuRDj4Fg/zj9reD5tuCJZ8GuPgGJPB ZjbgxG5pF+RG63dLeFlr ApmvbyfkJyUHLBG4SfYL5aWbfaZ0jm5Fr9LfVmxPfpu3X9zW1zA7nBmdBrEjhe8yoztmJIt287k/Zsy9 +jul7sfwtOQNq608beIl 7SLzQGim382eDpNA4b/TzOZ/ofn9xXg+dE0XrGk63Mn0rD3xQfoY8Hi7+7D3nkoiO3Cd1Vas5xBfQ87d vyrAgYNLhkGMJYRAzgaw 19RSDVS3/h/xlPCVOnTooybZKFQBaRLUPNlBwZWJRB6xDoOgfUqZOO1jXP71iBsQ1AgvxGkEUmdFbRsZ xMRBJYVXiHgDF26KVhb5 H3BRnRqisjIhMtchUxb7NA6b48Wru2IhwLWNN+vjEW625eekN7Vpk6fx+e0bZ31EskjFR1193PfIUtRf iBUnaa5j2QDJsyoINc5H ntpo2CBfRjq07yCnXmP7DvgNQ0ApLIUy7zBo/Bv4egNSb/wT8Dh7mjYhf4H6iKOsxhT3btVXUk5JCjWq Jb8/MZ1vZeZchoDbn0nJ hOTpMfA6+LpbaYz90bE7uWI5wZZpa7pW72dS4pX7EAC8R1iFuu5bUGkotHTL0TmRJ26nYsXUZfjiWg9j 1K7g7HZADwefBE2MtklV rHX0596CpBJbMDpX5gZOL6dpQIcscThjYn7H3aPzBlrpc1H96JJQHTmAt6TLUvGrW7PVbYaxygZqcNEf me6gajYdBPiy81GVooZB LXqAneGA+b25SxrRlfOvArKrNsfqie+fWcip4HvVdUXF08D/IwKnqkYXmmK1mCeDaPXnQGW2DS26MECn NQLMVxkeZ0auOESDYmOl YRS4IIARQXbfrWOEQmZpo685HOvZUYKANMax/7+ZFk+cRYGIu3iAMYVR3+UQ04+C8fhpLswfLliaxM7g U/YLqwVSxfbgfTwgHttU U47hnDs6Kuf2RBGiZk7/8eQd7S4bVh05hjPcTh86awyWrXZhpa33k34r3t1KlLLnlYNwMisEnHxeP9Fd ZfuCSbQKrQaY8ZZNQFuA PaMlfaTWyWINbjaKGBsFwfTKrIqfvEPJ6TuQB7MOAuyrFSADbo2sn5i3CrXDlX8jjAfcGFCPM8ewkPCt WjMQfUAhnsbzFwes8mgi hmMKQDeCfAeqfsHfByNNv70H0A63y5rAuPlmIq4XSeIp0YKCtzDbVccPrhxOK2Yyfi+HwwkIiUt3s43R B11jHD2EzFQ1IKgnHWU2 yr6GGilNiWTBoSkL4JrRRYxnUIXaoPL9FBM5ozDYKqu4hWIXk4eTAvk05wjFnx9Q9srdkC8OxUSHmTMB snfskkOO/3pYqzmeAEK2 RdH3n0mhKubtOifaWRqX6ocdfoRUvK6DKoRfwduTMqdbgVyCPrqUxOvKZHXZVVRR+Xg08+IFLZxX2MAX j6fX2Y/do98/FQm6uXEO CK0nRadQ4i6G9jvT1dQzE2+F2EtDwyRBDFQTo24GAIPz7LouY0RYdwomR2CukWSjL6xcZHrW1tsFpn60 LEC+VlhrmILd95jtv14B T85ZKwkEyPurnX7fZLeP5dbygsP5TI7T1xQsmUDMEnynp1kPARINPpW0G7WUAvjBMSi3bLysFTfIADdx nI1wUjRq+WtrRQ1wEsIp idJ5FFUJpdMNVRh6QvDVSGsGJmWHTLxcSUhov9Zvw/IjfJCcIPm8OEJJ6B8PUPV1aFX6EHtdZXNo2H4I GRVF4wmpwSQEK0qkRnwI x4Zcluc0dl5w3v4b0rps0sGta8Uxt+nKu4bd3SYxf8PVe1Rw2VfyOya4ufMXUqFi7K/Om3C58Yy9i9A3 duvO3gJnBnNWtyv8pazJ UNzyB8RbiS/y8qgyndp3t07yOp2uM9lmZFPkkenCtHWhnyMWDbHDGEU0eW2IVjhKww0zBdRjqODdgS6f AObE3GpH92Tw5GSt7nIT QrpMzZMzFq4zVg4FqRX2XWrP7KHuVYpvt7auYoYbHACkl3CyzAiWUoBGUJbsTQOCYfS9mu2RGBA5mCjb ebHxPptgWdkn0ev3kQ37 Fh5+miRjtsAJr+8MNEYrSyCVRhkY1JINZn0NiU2UU3BY0yXK0uaQfiyvWteFxNidjHjSvISh7Je8zqmW OWvPNucy4DQFLWSKFDgT axjd7chsUQ+HI3eSE9m5ZzujS6Et/enXEEVkozESRjbfFE95ww0cBDRfyL9BvKDl3iZK2TohsEJkrLqM WUUQ4MOG6tKvNxjOJTtn 1PpB3qhJnal7993/1Pz0hD7q8SL5R6qEXvDCjyUwFRc9Fl5AK2SNe6ijmSN/pfIss8/UaavVkMNUSAYk UN00F9QXimzR/qGeHVSk 0lfvsdJssCU6ccYqW9I/u/O62TF/I/oMPhX+wy1rn0WveX2PDaNeIK7pqKKkuWXhJcgIPNXjQT3+fEGh pVSS1EGctzudu3MT5O3i CHJbUrBczFCGItW2ky5VPiklKkjZXw5izxZrD2FYsFnEASYAxL1M1BglIgwAXMELFucD92LAlqVGJ5H9 svauf6vS/bdOzQLKo6Oz KI9fIggW4y7KBhpKh4EgW8LKT8Op+SnPoU5nIWSKRAleQZQmHRueJ+tiUSe4z2+IGLv5sdezEuhc6rv4 xzJGLB6WzTkwHNEd0GNB Jc0nynA3JWc/XXvPmHQuM3Oa8I2y6KgBY8MkwPIb8cRUq4IGfiy/z008aLuhHPVgA8R8h/xQ/cJwAH1m 8oB96S/3z2uSXP3FgN2X jkxyuV72SQgZV5QrluOVGmusPO0MVW7jHeNddiUGGX8XdxumzsDD0wYxpNZe9YupEXd8LUMBzobDy9a/ iFZaZjHkMkhskHy14T8V T6vhcXvSqgiTxFN/9z9Q+UC065Yh+9tIB3a+uMs49dg2DtUoX2r7v0pUkkK0oXbPSa84M4yTqEzBjUN1 KtulkhVQCobbhvHDGYQ0 mhIt/HbHhw3frJGSDXzCx3YJFLWSjIDVEYTaRwfikZCOOmCWtKpIXSdVOukGzhAibFrlBKINMOykj8ST P3O17qqPvLuWgMqkC0Ek BHAZ4SjuOZDvSiGtmX5Jq4DddemwkDOJe9yoQ6GL3cnEC8TvQT5F6bRfjIDzVYdRazdkFlrn+VP52BEJ SxFCrQaJdMGs65VlB1KY GLZK3hTZS/ugjN1JE8E4b32cKAORcIhnkXQIkRgYNlcMm4Bk6HMLxy0Q/NVR4T6ip4L9lBb2oHRxBOcA NIBDLsFYiTOPcsxqYT9R +5Z2WOcCvaSDMswgzRBvu9yyMXpBtlkrnJ3p1vip4Q+HP2K1bELnn8UcdUhUyREcewhB2QajODYv8F8N u0Cd1QsqDyrZsiX72azG zx181yzYT+o56GQr1HMUYxwJ+IGH6Bc22hTYbtDeaHLWO9WenP1Vd+S7itdOZo5TpqqyhUNG4K0Qi7X/ 2mwjDlth7wJaxe8cDTP0 zUOMDyplRIlQt7YDwEu3Ha5Wk4E34S5acV5ZD+jXYkrOkKO+7WcrKNwNpPM2JjwgY6tXyKJs/Ap2pS+w T3WlglhQMS7M9T6KsRl0 0ddcrkse/w0Jmwfkp2TE8qBZ4LFDm7bIdcOHv6BZtP7rMBXB+8ypHlrAz2aDkIwUKAcwwLGUsILSankn 1HhMeqBe+TVkU/J0Dsay Z23rJf/DKonr7+fLSe+RYWrOaJpaLKmk6qKiX/L5l9/csKwA5yv8q63sZFpYAgXd5V1LnlnNwfFptlYi xMydbBpJjLIRdH1JAYIs 8p9utGGchmZfkuPsvHLWTKsWWw4agRuK3SvCCpgeNhsB77HOgIYnD76Vu5nPbVeus0VxCliLX6jpQHBo 5y1NAZzwMsMlGX/g8LR0 paZuTCGPJr9242pTea2ZCGzt257CZqkWtTiXSdDiPkZBvOLDoQsGGVDdeXwEOvd7MRWJlAMHVizXWH3e lfAULNasi1z1Hw7eSDMH lEkeS7pFuKtZV76of+9J9p8vCLwAYFD8SSrgZyf+y73oQ1Qf13oOcZmm47FTy5TcTMlU/NBVd4B5UUn5 XHaBYENbPwswexR5LN8I naR6JfJ7c80htkN+nb9WoCy8BpEQA6A34N/lDP3ZRPkIkAKJKl0Hvgu7QdyR0gppyMqpc5q2sprt/NO9 yoihzYWuSOdDbdcrq0Y5 5Pfpk+Dvx5HlQDdAWkCgMIWz/nm1gCmajMsaeCb32MybbXO+EWKyGv0c1iWP1aVgj2tSdNFVLTmtcs/P qiIgOZzkwvj1IOy0mMfe fdJPFOfzBD9wA/7U8qn38sGod0bG/cXwsHfxtfg4i0FfnLgfVJj3Fpo1z8KrissNNXZSq4tmQJcgnQUV 4B8tE+1Dw7WMo6AAf4gl PTXH+I8qCKk0PtsFXrr/gG/X/CymgsnxnaPT8Mf9Z/adEzpEbNvzC5XlgshUne1P2NKgDfK+I5JoXZzk 0cvvpgJ15Hxkw0OLf0nG U1nLwHLw2gPmZogjd5QKw2B+s20XfDup0qn8o5EQSerCbVgo+T9y+xVC/B5x/YwhpNpgiCVHMF2wy0g8 X7/6HDoqJAAUdnBX/uzD C9zzATza89HsnsqVxikvw2Ew2rsyvAT5ccNfoWoYJ4pjLE02sL1bnDnTIWUKroC9yd1l2pi6lqwCcDqH YR4Uidwe8h20f4hL+SXH 1gi66q7en0pCBLeO5IcNdT4/e6uhyaPFiqKbgfGGOMQ4midA/es040Vvj/iNKZfyWMdroCkOK4QTH2vu D9RiBJWFEMYqxuaIfji1 cFC2blrPFWp9m5I9H9h3b8qPJ/lCvGt/VXyV6+BbOGkq2CfY59gRJI3JcHQwFl+GCZGBYVPioqSpbikV YVfUHD2p/QO0FUXKYSWZ 6ns11KxueTj1/XRsvqd1+NiK0XNdXy1iubyHAQCUFvrMLvgd9S1HhWJGrvkqbxZN4CRmuUktIE3mB5rZ WoJFJZT+Zwu7A7rABbXd cAjpaswgnsvk4OfNL5LzCNNdvu2jr2LGl22QxWc3WJ2JZxxr5YB8s0QsZ1/fok2c2Bp2q68KC3iEn1P9 VMjz83dEMpcSc4pK4drC 6mSc4DGMfmkjAb7UoZVY7y7I96cYvN/qwTJ/75iyZ+zlxlh7nVBFbplGE+ALCe+kTd/ci3ZEjctYWMa4 0IVjMVfUzXe6mcFZYhaq 6B7XRFfWZg7sbCoSLzfYkZkzU8NTh3IZ11/KD+tNjONh4bMmT8zmDIF4NrT+0ZJXkYd+6b1j8LqWWUaA ZP360+G2CDrKQgyiIVqU 4n/3aZEi0s51tgXL+MkWsqgCxcuXLioQcRzYTHJZwq7+dUd+al2omOstzFQGw0zo+40AHv7W3e6FD2P3 yel0drvXCINBIFU8rTpM VgSWEA2dKGGFs0xojEAqHQQ9xOJ73405ApQ/l2aef8fIziC3ibCPlw87UCT1vv+l/QYE2mpvmChWzoEV 0zvhyGIM7HXuOAHCtb7A p7mT9FUCsbdygUtBcC+C7AwiB6TJIK85Iwkn6kU91yeZIew7PbX+Qv5n7Z69MSr+nNuFbLKVsL4fmR63 0I6OdeQ09ZWLZVZKBJRC 4zmxadU7lOh7oEALfvz+7+RYEG+WEw8DEIMxUzw3qwBHb2ptXzunNJJ9dRjDDgwlPL59TLcs2Qq+e0Oq olpI1hzJu56QwGXRpOhw 7wBJpn9OZbLzMxUlFfcMsumbyKxlydf8+4YFk2WUbFw4OIM5jGJGUt2RWnjABlXU9EZvszGenk1TSKCU nyxpTZVga5MmbLQqXRdY rMjiHudRhFfV87Daj/xvUMYLEKQcZAsWSzg6gPRwf2SAUNFONdLZzAu9OpF3eWbNuZ39vqGTAbHf1UXr 0vO316AEK8uDAr5D4tzj g8BlMcNiEoHP4pDa6jFl3tYnp5K2RD2FyiVgsdXkyoI1ZbkMnaYfoKSNAK/E38mhOavDYjmIaYbseb6g Oc9NWZTua3t52qv8VhYJ Eo0yTcbkvpQT0RkDouugLxIwhlBLna4zDIWNJVda9efBnt8Oq3qBO1QRjuBDE71ao8bV/Lhw7HZf6qVU R64U2Qn/3vZ85VOji6sl UPhHMu1dcs1ehoF3hq07YZvS73g1MxVul8aHC5YIL05enThRN52lNqvg7EG925pBZp6AmgwBG+j1k/Bd kn5+HscyFuqhDto37xoH Fh+tGKu3E5kFCnC6xuSm5lrvhS5PumsqOoLpKVjo9AI/drB7iUfR9z/P/qQ6SlhiOW9PBY4vnX4xk1u7 JtrjIs08Gmriw88TRPJY 6aFXycj8hTtjDIbJ9e8Mhy3R5LsamX9BHp/IjDCgSYdSRpZq011bRrpS+kDhg7WWPNHQBcySQpPmy1kg yXSj7pHzfCCk+WwVEBkb hil6mjaxht2XC/RtjusBLVqnNnsQb/ezsCRFcUqNmlbPoCnK64ucLS4RAKR1jfwF2sSY9gPOQ+W5j7am 47Vl3lYDysIo1ep+Rpm4 +c/sYiGa4g41e/L4dUp36BoFYIwS18YG7I2Zo+D6B5P07D3fWtBtheHlt6oi6ptJvZeWZBfMc+YKgVlR 2kdydRzVgOHrqY9J1A8N Dg30UtqLnqjdlcAAtx7U/D7X/IDyp7dBCsCL5bizMmC4g0cShp+yVEOUOokAyeqP2BC0vjtTL6ZWb5c+ 32+O/BCsad0inCRrT6EX BoNRpwTq5J3BqQlY3r6UUqUKCvngaIOccgI9qhZa9Zg34WZj0QzZEYCdaNMUhyjhkA5LMyCl3/tIwlFD 5Yf+OFuR7OHBrhjnONfG y1u8g5oV+dt1v+7v+sk2jXp1+jTcq8FJA302aisxWNCttkFUDLcrMa2/H20/ljh9m+Ffemm8YKjaz2eG iV3Sb/jcck/CJlSNWCB1 Z4vuKx3RubSrbEAIVvZQvEw2m0JYhIt872F88yfxXc1TuIusier4pDq6EsQBDI9CJqxZjmTCEMFAKyy3 lYbY+c+r+/dX4VkN+l7H Etp//EBKLTzD2xpL23fclhK33cSA4xYkqb/DXjVy6k19MyqEkN7D9ZGZh/pde+SHh49G0ekp5HECAu0/ iwhJXWfjOuHyfajesSMf jeH0IRI3cEWKV+qvVkba/esC9Ry7gQ8C0QXzFyU8D7FJMlY9Eni09W4V8MbHFi6CuKsQqUZ5/bdnDG5X Lm9htgUaiHLdCCTeiKrv utPoPAC9oobdg03UXlGO/whi6y6Nev9f28KofUDXI8q5JpfNg5uvxP/q84rIHZ3Q8tjcEMc15JGwf8RQ wqvFsKyo8gC7mQOvtVHt a6G5jA7065PPosAvrk873o/rlXdqlfLPqeplFnXatnYx+NZoiZVSZiCpOtejRWxqHYNa02TN3Op++nxJ ko/JJigB9hAz+xr/d6zx Sy1TJBmPC2rZzn54Nw63f7B4bPX7fsVx+QcMgllpvywMB1i8RI2lLb1cJDhJzoMkA7GIJfRf46JoC4d3 mast2KN+Hh/CZSpVmex2 Xx7FbwKnZ1vBNIGw8G3tvYD7fu7VEF1IFArgdv/1ue4pjAanctHB59jzJ3gIfVHK3f/6/A5f7BxLawX6 io7rbxeZd89bdts+rL06 gqsTvGWTSDyN2y1l+s9kaTftoCxdr93K5qvm76f+1jb6/bSGwzZLODsUsuTuNKWkqlUI1HqV4XrYiNEd WdHrWr81d9I35NtHqdxB X7mkz7TkOhSDX4mK2zX7ZQZO+vtchVdl6P3zWKYdOc17LUfvW+ex9IEG9kA3lTF7nk/Y52be782zpsUU n44Kxftl5772BtSLfr/O VVAkOTnhMOSha8S9i30uiwNfWeqzyFVnDh5UvcCyHmLBoDH7g8kcPaSod2EDYDfS3XFBd9gwLEi9WkSe nXFWXn5VWgw+wj2855j5 RiRUK0eKTmCZNPwDe6Ov0rWx58WkE/+9h/pn05g4m5aj/wRZRxsLHSuDuq+EgyGXAvj5/zJHnK2KkC6U mWKrD95jzElq98eBMvJX yXhkJhH8Z+vDGOc/gEKuKJgGjgAeJSyHqG9VJ/rL12j3t2Monk6oTjru/knHgrVLc6zdZZJVhhyPq2rd ZJY/H820/J7B+g2ObAPH RkQij16aln6uxxIuXzsQeQ4r8RkBrktWwFrN+f3b1HdMG7B9gCgfpKH2a7Yu42dmleg7hggCRKF6pnRm tFZX+jgsaimLeGfl1z54 LHl0DWrat+4R5KKo+3w+Skm6alxy0SYkf5T/a9j1/PBskyjyfonEF2x2dhHNbmVQQCztufLqnrSSi3B9 UjXKFN/UJ9/uSSZMTJ+T lfxeIi/8yAs2XYyZGkkiDeFyh9uLx2gYj2ZYBZz1gpknJXXKmsCsjPbvfYeFdmG5rKfx/X4nUyVn0SII tLJFj6vcsmuwHmz8Q2ZT NH2rtTkOadeZbACVnIsNnORtZ8cl/teJGPd+3h0vB5edzovua8i3D+m6LL2VCFRwWvigJDnWg9wfSY69 MrCqTwlXW53FYpaZWW+/ vnZD8wrpZ21eeNWyAEQBhLdce5KLqLc6ZdDdU0EJfQj2Z/PgoFF5fu9S4Vn0vHT2EL2W6oWqJOUplrEZ ppaBPNkeW+CgbT7zZ8om 29Zp+lF/mJeT9WJOESLtvBAn8ax+piyoTqJMKjuS6hdRMWz/jIiTPKleyRRAQDAojaL2R0dguGUPnpyS BiFhJmlVkS/zdeeORK25 KKxpKmWoY+ErBetuQkFlJUnd3ea9SLTPleYz4dY5uCH1GDqgzLFPClFu5ncDfEgzLU3GQ3Pys5hsGNZp xlUy5P5WdoxWl4nLWDKV EmnaQCWNgBoDy1jsO0KA4cnWpEnZFk6rP+QMXl0xcHHdggJ4FovNbRV9BAX569wVch/ecuGP9nSo6bHN nwDlWA1sQ1KdRPIq/Sac 5WqoDyZB8byKzTPteu7v5EaEwYo7FhqFkdcArirAapr0XSA3Cb5IS/lQgxDL0R1ZBUlBlgkgLAe2873R i78A65UNtkzr2s2sUTsa j8rtN03C7Khnkorrv9mLOkK8r63gs/xnQkNrsl20mN2hNqqH6YHMfAvkK/el7h97S2zRAw04CzB7Gkj4 vJc5mq16ohaCPxsGoMuB HLineB0mBhx/bj/aH+xs33+rqhNAQK+PmOAVb5ILRd75z88J2fC4kPwKYE8eXx+RXZstJNusFhYRpetF h9o6ReXpGtLJEL1HzPJq wAZhVisiaM1b05KUNEQcPlpSj6fJ23a5CQkgqxuzUV46qQw3+2RnX8f08yLxEdITOTDoCPcjYNStCfie Dd5ueRmQrtW1TK2VDIX4 hBQ6yOozv54bzp2X5Ab4iu06S1i13JF2W49JU8Tl8MQ30zum0sIUwvyxt+LAP8W3WL1SQQLk0K35BIML OuMlxNGbRcFdA0sEe13b oukzE+1dtEoFSNfIADE5mQG6TneH+AiMOomQo0R6NPThTozvbTjlmdiFc11n2a4M2Ye26e8QzLnGK98N pS8nKTsCLkkJqKPkVhXb MzPGmoWteXJRfCFo77+BufdZlyQXaX5goHclZnCnOuEjfjKTvoPlavr+k5q21N79BPDfyNiihaiQIgnv slNxxbr+92kuOtB4NQth W/YynnzBGvk0pK8nbvqDukLS9gqXI8yF/Oxfj5D+0GgtuzJ7ptcRbZzD+vEzIKtujcysVlwOlHO4bM4u gWsl2fo42OcJ78ENCXdi IlPll52ZID8vvZcxXNJ7wF41li9/HVe4jTXkQds/EuitgUIYFY4+jjciSoCA77Y4eTHx9jj3U+sHd/ep 3tAAjKahNEuUbE9OocVu FNgnJXQQfhrfoPjFvGh9xw2PYx22Z+FtwYym52Ga0RxX67xn9XQre8hEBjPSCcDKl6YxhsuDp0XndKum Hi015+rz/JLgiekPZrAd FdXaDJBQEoadV2jNq3/uXgTsCKqBo+TtUNOJAgWv7CAkaOWdkt7+9OnPUpLxxFFqhrSzJUydYUAlP16j ohlV3Lbv4zJOKvYaCHsW ccpdtkTStnyFXQUKxhyq/xRz7YzKclSl/Zwl5eT279oKo9XOsxmUrKpRfrsn8H50xcEMAC8rmQyEZGsI QG1+iyzQVYfs+uqDiM/V vJiJUdA9JMWnDYRVi70n63vcWmZgvWiyXQJk0MclD8jOr6Smo99bftQbZeBMNAp50i5aXTmzg3ZouLUJ OW6omBQadM0kmPvnmkIG VOGPVvFSVz343gnQZNIHJM7+9Wfwa8nKYoJPFYtspzz5R4s71otuHrwjyqhlc8JHDjJSfKNWsGtQlDiM o8T6Ma5waL8y0lQGjunF SRFHEdmBHapNy9GBM7tfWWV00caYMjj3+nrn6P5m1HLjvFvm3E6rMb+oAMsqyRN1dlSK/9x7n85aTI5X c5+8nUhw095ex1CDP3Vn uJ6tVzt/rSFsu+Cw/Uzc0/mii+ue8bRcd1MRpvANjt7Tf3y3Q6UGCJeaCTwtAnr/RclSvbm2vUjDBVKJ D24RwBvJ5FDc/3cRJnRC inI21/LfqJ+LrR/M+Vp536/Cyed1fVAwenzVBbsfKh9sfSttm+B4Rghox6ylN0fcpVH14ai8dAUUohEP e3/Pkv4tqmNTU51uajf5 tGX9qRZTZddFqxV+WLYFkdQLcZtxypDPCsGUmThbja7SZ0KfZ3BtP4t1L3G2kl7hlCcSEgmwNJKIuv+k HFz77Y/D9YE9Uv3rBhZ0 5VI2ltz2S3JsfINYZ+M7n6Wq2/zNZyL9oflMhJ92wz18knaFYrdsFGxglS0xIrbZpgX8puQ6FE38f2or kNtZP6epeE/+cXrmWTHV ix9Z2N+fHW0lHvPEn0MWB/4sHlLKXRhAgcR49xLBARjnYDodaJMe0w2la16rxIFOxFFXtQfuErJ/u5ir ucRG17Q8Cp3YfT/p5VN1 VNugaMn5UrNhoF/vk3Q0ZIF8VdImo0MbOk+PrQ3AitwUoSwer14TP4qFm64cTdzIQRQmjArCXipO5RvO ZFAvwsDJjV8eQh+/vLzc m5DHvozGSPecWatfCTmAReQfofd2d5GUFb48jePq62eciREfhScVbclS0IGdiXNONDSXQKpJfhjwMRR1 vXb5Rkb066ycUz5WVhGe aZ+E1nC6zezVM7E17s0yQFOMN1nGbbxq8YmtR9iQGetev5bJnMcCnh+ApaW5WlttO9ol6rHTN+rnjLIJ /Jose+c9XDxTKiMMEgEL4 ZIRfE+UoXQXArGMLxns8FZg1ckF2B//d7xJHYTyum3Od6R0z7WddhAxI77W+61htqRj7hW5iRIMTtKes ypkiYKmwRIPBZ8wb8F+z QSH6J+FtMy7urpjpU63Phu5EqvQH/KVpG/8NPTU2ss8x6c2zYgS44sDi0znlo9gN9FVnVcMiAAkHjDkq jKSizCQFZpj6Yd1aF1Iv geyEwA6dIrvLBU9FW02pkNuQBDdTSnhxjtE1oqbW4A/ka2j/WnZMy0ERKAKlFfY4WDcbrNhtnu2g0gk3 Jnto7fadAtEm2Bf/dryI Ul6n9bPes+0fVHSj16E/M70qx0J/9halLKXiDDAj1DftCLYE4GaJutECRC9dGIRP17vjV2ecSKc9hfN/ ePOGlg37UQGyKCR99Akb okaYMq9mDdP9tZwwpE0Ip11i205PnfD2CAIFOINjcWZEBWIy8uiwiDCqMP+Uiztw4YHjjPf22tSQu7FQ hSM23CXW6MfW6xnt702M b96o7KoO+lyr5h1Zig6bxiIAvOia6xY3Krgtw+/2robPnCSmUPPuraNFnPks8Af5vmWLasGZpuXlT/oO LdHP5VzqwaW+EF1XpCkG N1ie1HVBVpkhj3m2pmOWnUPI3Eu823nNG1V7J8F4vxMJhGhyypWl+dHyaiHADMqRGaqsDpJy3+alos4z RHhq4wW4LSRNrhWmK1rD rZBEwjoSgv40uBqK/Jnm9uhfvlPjan4y6v7GA0Tl7/U+u9mP+Pblht29rR0fNSde3O1mSuXY2iCcOO+p /vIrXRIWDzvl33xJj8kx J0RxCtzGw3E48l4HwuJRkNJsL1q75qsMdhrAm3+q/jzNB2H3TEKyKp0ouQ9nWaMzDkEgaBShfnv+ucss c8Xfy/tD0/qNWplmDWSv n0vrwsqlJW6J4ti3UsQ9H1LlY4NNf2+mDD/RFAO6VTSEsfboS/6UE5U2fFAaNF968eap/0uNq2JtWIgs 7Du85wxyBokrCmPf5U7M zKL7lmN2n0NPwb058nXRbZIPMGKJ8uOi5uElhKttEbtY0cXe8TGAvTifgxpA6glaOMrrobkehZf04EV1 tJ1X4tigbzOARH1ybCHr FK+fqMERlEBlYGh1lbQxNdmeNqyS3EV2tsLoMxkJEpHGKuPZquZJNSkqAALcU8NKMR9jNLfEnW+H2DV/ +QGxF5BWJFEBWqJThUsFuIA></span>
</div>
<strong>Patient Name</strong>: <span class=clinicalNoteMacroWysiwyg id=[id number] macronam e=PatientName spantype=macro title=#PatientName>ISAIAH TEJEDA TINO</span>
<strong>MRN</strong>: <span class=clinicalNoteMacroWysiwyg id=[id number] macroname=PatientMRN spantype=macro title=#PatientMRN>[id number]</span>
<strong>Date Of </strong>: <span class=clinicalNoteMacroWysiwyg id=[id number] macroname=PatientDateOfBirth spantype=macro title=#PatientDate OfBirth>1985</span>
<strong>Today's Provider: & nbsp;</strong><span class=clinicalNoteMacroWysiwyg id=[id number] macroname=MyName spantype=macro title=#MyName>[place]ili[place] [facility] [place]>
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
<span style=font-size:12px><span style=font-f amily:[place],Helvetica,sans-serif></span></span>
<span class=c linicalNoteSectionVisible id=[id number] internalbreaksection=f alse originalname=Med Onc Advanced Care Planning recognizeconcepts=true&quot ; spantype=section suppressempty=false>Advanced Care Planning</span&gt ;
Not discussed at this visit.
<span class=clinicalNoteSectionVisible&quo t; id=[id number] internalbreaksection=false originalname=&quo t;Pain Plan This Visit recognizeconcepts=true spantype=section suppres sempty=false>Pain Scale on Today's Visit</span>
<span class=&qu ot;clinicalNoteMacroWysiwyg id=[id number] macroname=PatientPainS charo parameters=LookBackDays:0,ValueIfNull:Not recorded on today spantype=[facility] title=#PatientPainScale(LookBackDays:0,ValueIfNull:Not recorded on today's visit)>0</span>
<span class=clinicalNoteSectionVisible id= [id number] internalbreaksection=false originalname=Pain Plan Th is Visit recognizeconcepts=true spantype=section suppressempty=false>Pain Plan on Today's Visit</span>
<span class=clinicalNoteMa[facility] Systemysiw id=[id number] macroname=PatientPainCarePlan p arameters=LookBackDays:0,ShowComments:Yes,ValueIfNull:No pain plan indicated for today spantype=macro title=#PatientPainCarePlan(LookBackDays:0,ShowComments:Yes,ValueIfNull:No pain plan indicated for today's visit)>No pain plan indicated for today's vis it</span>
<span [facility] id=[id number] internalbreaksection=false originalname=Smoking Status r ecognizeconcepts=true spantype=section suppressempty=false>Smoking Status</span>
<span [facility]=clinicalNotOhio[facility] id=narendra [id number] macroname=PatientSmokingStatus parameters=ValueIfNull:Not recorded spantype=macro title=#PatientSmokingStatus(ValueIfNull:Not recorde d)>Smoking Tobacco : Never smoker; Smokeless Tobacco : Never used smokeless tobacco; Vaping : Never vaped</span>
<hr><span class=clinicalNoteSectionVisible id=[id number] internalbreaksection=false originalname=Depression recognizeconcepts=true spantype=section suppressempty=false>Depression Screening Tool Status</span>
<span class=clinicalNotFormerly [facility] id=[id number] macroname=DepressionStatus parameters=ValueIfNull:Not screened on today spantype=macro title=#Dep ressionStatus(ValueIfNull:Not screened on today's visit.)> Screening Date: 09/19/2025;Plan: Patient declined treatment</span>

<span class=clinicalNo teSectionVisible id=[id number] internalbreaksection=false&quot ; originalname=History of Present Illness recognizeconcepts=true spantype=&q uot;section suppressempty=false>History of Present Illness</span>
<span style=font-size:12px><span style=font-family:Massillon,Helvetica,sans-serif><ol> <li>Patient reported that she has been anemic [...] heavy bleeding. 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
</li> <li>IPMN
</li></ol>
<span style=font- size:12px><span style=font -family:Massillon,Helvetica,sans-serif></span></span>
<span class=&quot ;clinicalNoteSectionVisible id=[id number] internalbreaksection="false originalname=Medications recognizeconcepts=true [...] suppressempty=false& quot;>Family History</span>
{ }

<span style=font-size:12px><span style=font-family:Massillon,Helvetica,sans-serif></span></span>
<span class=clinicalNoteSectionVisible id=[id number] internalbreaksection=false originalname=Social History recogniz econcepts=true spantype=section suppressempty=false>Social Hi story</span>
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

<span style=font-size:12px><span style=font-family:Massillon,Helvetica,sans-serif></span></span><span class=clinicalNoteSectionVisible id=[id number] internalbreaksection=false originalname=Vital Signs and Pain Scale recognizeconcepts=true spantype=section suppressempty=false>Vital Signs</span>
<span class=clinicalNoteMacroWysiwyg id=& quot;[id number] macroname=PatientVitalSigns parameters=LookBack Days:1,ValueIfNull:Not recorded on visit spantype=macro title=#PatientVitalS igns(LookBackDays:1,ValueIfNull:Not recorded on visit)>Blood pressure: 132/76, Pulse: 75, Temperature: 98.6 F, Respirations: 16, O2 sat: 99%, Pain Scale: 0, Height: 66 in, Weight: 179.2 lb, BSA: 1.91, BMI: 28.92 kg/m2</span>
<span class=clinicalNoteMacroWysiwyg id=[id number] macroname=Immunizations spantype=macro" title=#Immunizations>Covid-19 vaccine (T[facility]isa) (12/22/2023), Not given other reason; Flu vaccine [...] <td>
</td> <td>
</td> </tr> </tbody></table></span>
<span class="clinicalNoteMacroW[facility] id=[id number] macroname=RecentLabResultsTable parameters=OptionalFlowsheetCategory:Tumor Markers,Label:Tumor Markers spa ntype=macro title=#RecentLabResultsTable(OptionalFlowsheetCategory:Tumor Markers,Label:Tumor Markers)></span>
<span class=clinicalNote[facility]" id=[id number] macroname=RecentLabResultsTable parameters=&qu ot;OptionalFlowsheetCategory:Immunochemistries spantype=macro title=#RecentL abResultsTable(OptionalFlowsheetCategory:Immunochemistries)> & lt;/span>
<span class=clinicalNoteMac[facility] id=[id number] macroname=RecentLabResultsTable parameters=OptionalFlowsheetCategory:A nemiaLabs spantype=macro title=#RecentLabResultsTable(OptionalFlowsheetCateg ory:AnemiaLabs)><table [...] recognizeconcepts=true span type=section suppressempty=false>Surveys/Consents/Other Discussions</s costa>

<hr>
<strong>KEI Claire</strong>
<span class=clinicalNoteMacroWysiwyg id=[id number]" macroname=LocationPhoneNumber parameters=Label:Phone: spantype=macro title=#LocationPhoneNumber(Label:Phone: )> </span>& lt;br><span class=clinicalNoteMacroWysiwyg id=[id number] ma croname=LocationFaxNumber parameters=Label:Fax: spantype=macro title=#LocationFaxNumber(Label:Fax: )> </span>

CC: <span class=clinicalNoteMacroWysiwyg id=[id number] mac roname=NoteRecipients spantype=macro title=#NoteRecipients>FAX
Kimberli Enamorado MD (Referring)
John Avalos MD</span>&l t;br>
<div style=text-align:center>
</div></div>

<div><span class=eSignSignature>Electronically signed Roger CHOUDHURY 09/19/2025 18:22 CDT</span></div></body></html>
--- OUTSIDE RECORDS SUMMARY | 2025-09-24 19:07 | XMS_ITS | CCD ---
Author Name Interface, I1Ekgnzyn lity Address [address] [facility] [address] [address] Organization [facility] Address [address] [facility] [address] [address] Care Team Providers Care Broadcast Director Operations Name Role Phone Wiliam Moore Unavailable Unavailable [...] Group Identifier Payer Identifier 2023 Active Other [id number] Inactive Other 519 Diagnostic Results Date Type Test Units Lower Limit Upper Limit Result Flag Comments Status Ordered By Specimen Source Lab Address 09/12 CBC w/ auto diff Scott # (ANC) K/uL 1.6 6.6 5.8 FINAL Wiliam Jain [place] [facility] [place] [facility] , [address] [place] [id number] 0 09/12 CBC w/ auto diff IG % % 0.0 0.5 0.2 FINAL Wiliam Xavier [place] [facility] , [address] [place] [id number] 0 09/12 CBC w/ auto diff MO # K/uL 0.2 1.3 0.7 FINAL Wiliam Xavier [place] [facility] [place] [facility] , [address] [place] [id number] 0 09/12 CBC w/ auto diff MCV fL 80.0 104.0 88.7 FINAL Wiliam Xavier [place] [facility] [place] [facility] , [address] [place] [id number] 0 09/12 CBC w/ auto diff IG # K/uL 0.0 0.03 0.02 FINAL Wiliam Xavier [place] [facility] , [address] [place] [id number] 0 09/12 CBC w/ auto diff MO % % 6.0 15.0 7.8 FINAL Wiliam Xavier [place] [facility] [place] [facility] , [address] [place] [id number] 0 09/12 CBC w/ auto diff EO # K/uL 0.0 0.6 0.1 FINAL Wiliam Xavier [place] [facility] , [address] [place] [id number] 0 09/12 CBC w/ auto diff EO % % 0.0 7.0 0.9 FINAL Wiliam Park [place] [facility] [place] [facility] , [address] [place] [id number] 0 09/12 CBC w/ auto diff RBC M/uL 3.9 5.1 4.78 FINAL Wiliam Park [place] [facility] [place] [facility] , [address] [place] [id number] 0 09/12 CBC w/ auto diff MPV fL 9.5 13.4 8.5 Low FINAL Wiliam Park [place] [facility] , [address] [place] [id number] 0 09/12 CBC w/ auto diff WBC K/uL 3.0 8.9 8.6 FINAL Wiliam Park [place] [facility] , [address] [place] [id number] 0 09/12 CBC w/ auto diff PLT K/uL 113.0 364.0 289 FINAL Wiliam Park [place] [facility] , [address] [place] [id number] 0 09/12 CBC w/ auto diff BA % % 0.0 2.0 0.5 FINAL Wiliam Park [place] [facility] [place] [facility] , [address] [place] [id number] 0 09/12 CBC w/ auto diff BA # K/uL 0.0 0.2 0.0 FINAL Wiliam Park [place] [facility] , [address] [place] [id number] 0 09/12 CBC w/ auto diff HGB g/dL 11.3 15.2 13.7 FINAL Wiliam Park [place] [facility] [place] [facility] , [address] [place] [id number] 0 09/12 CBC w/ auto diff RDW % 11.4 16.1 13.20 FINAL Wiliam Park [place] [facility] [place] [facility] , [address] [place] [id number] 0 09/12 CBC w/ auto diff LY % % 14.0 41.0 22.5 FINAL Wiliam Park [place] [facility] , [address] [place] [id number] 0 09/12 CBC w/ auto diff LY # K/uL 0.4 3.6 1.9 FINAL Wiliam Xavier [place] [facility] , [address] [place] [id number] 0 09/12 CBC w/ auto diff MCH pg 26.0 35.0 28.7 FINAL Wiliam Xavier [place] [facility] , [address] [place] [id number] 0 09/12 CBC w/ auto diff MCHC g/dL 30.0 35.0 32.3 FINAL Wiliam Park [place] [facility] [place] [facility] , [address] [place] [id number] 0 09/12 CBC w/ auto diff NRBC % #/100W BC 0.0 0.2 0.0 FINAL Wiliam Park [place] [facility] [place] [facility] , [address] [place] [id number] 0 09/12 CBC w/ auto diff HCT % 35.0 48.0 42.4 FINAL Wiliam Gaona [facility] , [address] [facility] [id number] 0 09/12 CBC w/ auto diff Scott % % 43.0 74.0 68.1 FINAL Wiliam [facility] , [address] [facility] [id number] 0 09/12 CMP Alkal ine phosp hatas e U/L 36.0 125.0 54 FINAL Wiliam Jain * [facility] , [address] [facility] [id number] 0 09/12 CMP ALT/S GPT U/L 0.0 34.0 17 FINAL Wiliam Jain * [facility] , [address] [facility] [id number] 0 09/12 CMP Calci um mg/dL 8.4 10.2 9.2 FINAL Wiliam Jain * [facility] , [address] [facility] [id number] 0 09/12 CMP GFR estim ate ml/min /1.73m ^2 112.0 GFR is calculate d using the CKD-EPI equation. FINAL Wiliam Jain * [facility] , [address] [facility] [id number] 0 09/12 CMP CO2 mmol/L 22.0 30.0 [...] hour stability window. FINAL Wiliam Park * [facility] , [address] [facility] [id number] 0 09/12 CMP Gluco se mg/dL 74.0 100.0 72 Low FINAL Wiliam Park * [facility] , [address] [facility] [id number] 0 09/12 CMP Chlor kristi mmol/L 96.0 107.0 107 FINAL Wiliam [place] * [facility] , [address] [facility] [id number] 0 09/12 CMP Total prote in g/dL 6.3 8.2 7.1 FINAL Wiliam Park * [facility] , [address] [facility] [id number] 0 09/12 CMP BUN mg/dL 7.0 17.0 10.0 FINAL Wiliam Park * [facility] , [address] [facility] [id number] 0 09/12 CMP Creat inine mg/dL 0.66 1.25 0.70 FINAL Wiliam Park * [facility] , [address] [facility] [id number] 0 09/12 CMP AST/S GOT U/L 14.0 36.0 27 FINAL Wiliam Park * [facility] , [address] [facility] [id number] 0 09/12 CMP Album in g/dL 3.5 5.0 4.4 FINAL Wiliam Park * [facility] , [address] [facility] [id number] 0 09/12 CMP Bilir ubin, total mg/dL 0.2 1.3 0.3 FINAL Wiliam Park * [facility] , [address] [facility] [id number] 0 09/12 CMP Sodiu m mmol/L 137.0 145.0 140 FINAL Wiliam Park * [facility] , [address] [facility] [id number] 0 09/12 CMP Potas sium mmol/L 3.5 5.1 3.8 FINAL Wiliam Park * [facility] , [address] [id number] 0 09/12 Iron profi le Iron, % satur ation % 20.0 55.0 18 Low FINAL Wiliam Park * [facility] , [address] [id number] 0 09/12 Iron profi le Iron ug/dL 37.0 170.0 63 FINAL Wiliam Park * [facility] , [address] [id number] 0 09/12 Iron profi le TIBC ug/dL 265.0 497.0 353 FINAL Wiliam Park * [facility] , [address] [id number] 0 09/12 Iron profi le Unbou nd iron capac ity ug/dL 75.0 410.0 290 FINAL Wiliam Park * [facility] , [address] [id number] 0 09/12 Eleno tin panel Eleno tin ng/mL 6.24 264.0 10.70 FINAL Wiliam Park * [facility] , [address] [id number] 0 10/09 [facility] [place] See commercial attache d Medications Administered Date Name Route Dose [...] End Date Status Fill Status Indication 12/21 Minoxid il Oral QD active 12/21 Semaglu tide (weight loss) Subcuta neous Pen Injecto r weekly active 12/21 Phenter mine Oral QD active 12/21 Olanzap ine Oral QD inactive 03/19 Finaste ride Oral (Prosca r) active 02/22 Choleca lcifero l Oral QD [...] MIN Vital Signs Date Type Value 03/19/2025 Body Temperature 98.20 03/19/2025 Heart Beat 83.00 03/19/2025 Respiratory Rate 16.00 03/19/2025 Oxygen Saturation 99.00 03/19/2025 BSA 1.88 03/19/2025 Pain Scale 0.00 03/19/2025 Weight 173.40 03/19/2025 Height 66.00 03/19/2025 BMI 27.99 03/19/2025 Intravascular Systolic 110 03/19/2025 Intravascular Diastolic 68 06/18/2025 Body Temperature 97.50 06/18/2025 BSA 1.89 06/18/2025 BMI 28.18 06/18/2025 Height 66.00 06/18/2025 Weight 174.60 06/18/2025 Pain Scale 0.00 06/18/2025 Intravascular Systolic 116 06/18/2025 Intravascular Diastolic 80 06/18/2025 Oxygen Saturation 98.00 06/18/2025 Respiratory Rate 16.00 06/18/2025 Heart Beat 77.00 07/05/2025 Heart Beat 65.00 07/05/2025 Respiratory Rate 16.00 07/05/2025 Oxygen Saturation 99.00 07/05/2025 Intravascular Systolic 107 07/05/2025 Intravascular Diastolic 71 07/05/2025 Body Temperature 97.90 07/05/2025 Height 66.00 07/05/2025 BMI 28.08 07/05/2025 BSA 1.89 07/05/2025 Pain Scale 0.00 07/05/2025 Weight 174.00 09/19/2025 BSA 1.91 09/19/2025 Intravascular Systolic 132 09/19/2025 Intravascular Diastolic 76 09/19/2025 BMI 28.92 09/19/2025 Height 66.00 09/19/2025 Weight 179.20 09/19/2025 Pain Scale 0.00 09/19/2025 Oxygen Saturation 99.00 09/19/2025 Respiratory Rate 16.00 09/19/2025 Heart Beat 75.00 09/19/2025 Body Temperature 98.60 Notes Section * Med Onc Follow-up Note <html><head></head><body><div style=text-align:center><span class=clinicalNoteMacroWysiwyg id=[id number] macroname=&quo t;PracticeLetterhead spantype=macro title=#PracticeLetterhead><img src=data:image/png;base64,dRKOJm8BQgvXVZQNAQlXXbNXZRVTXTRODDQWUAZnRqO5FFQDHZTRQ 5MDwi9f1XJPU KBmQA5DWILipal8MVJWDLVRiLjGelABMrKFIU2fNWnsR8VLPRaDIRLHSInv1E9EdNVX7keCcTnl7OPov HmMM0CnGTwdS5qgXyTCv qHrVoDq9U6DaqGC0qnJd6GLuztR2IIpClXZedzvVE5T/tW8GpdPe2ohkCJ93GnxNaGmB18JC0zL584pm 5Ee0AGsv/OwOh8ZWuCFs BRwfWOy9rCQZrxbgxIvxVtROc5SJPp4vT5NFNWmvzVUY/9rDTwuZmXw9kmZuOh84tvRCE7R/T50BaZtk gXZjAglv7t+kf2Stb8bc zm4TrNr1gfg7vG6haBLi9TarwBAHn2lV1X2FSqpJXA21xHx/qPuV3uYphUHD02KSL1RW6OfB9KufLqoY QSFKwN41pGkWV7mtJCy2 k8Kb/n/zoAAcwd9PlUCpvltqjInqINVc9yA+iYJMwlKevt1q576iwb4UR1BYLNH3jDJyAQ7US9wjDCx4 k+R1cDbJWay22Do0/TRN 95RNu16Jg7cQRd9UCtWBddWMf1q7srCVykgaAAq6h2aUZxe5rMIz+l1hFefulDZGjkUbunPPaC2GnEBo m58wJeaQzDeV8LhnU8H8 dkxfekKUkI7eYv+lE+/MJHwuMFJ6d2BmVW96v9SE5F+UUKXp9xWdIdCQxxgLRKWsAMS5Ya1xopwCAeUn Sf1yoYZy6jt0/ta6si7D ttJIIV1uFtUGptdqpslo+0fXTlrZQwFziNRefczPqu3Q7d+6squ7Tys1dH8MNcl2HVe0jbqQb7U4hprE aWlpRIMIkds/Ny1e7JxH NJ6DOiv6qDZndMXcCBz5CRsHk863Vzn3UNm578/G9NByXjw+ZzlmPP2osAGq7o+plzaLKDD5dksBx9X6 Io0KtM5A+uJk1y4DeSBT 37bZriyEjYlEh0vRXfy5KZw9ygbf/P8XYbVBg+VJnXLwqIZi1PWItSviOmGxJfPDi4LutTMOw2EnCf3g OHCRTVBHMIWHgkJiea++ +18QGSd2ol1OhysstgZSBQBChQT/E0XA6udJAFtoLcgQG2OienmYf4LX++p2FimEY96kDSWF3GxlSLyk xHPx55mG5183N6y2gKlT 2771zrmefAJ5CaoOy3i2rJKC1eX9nd0dNEKsNi/NP6IBaeSTFoHL9+Us+2zhGIKe9icZPnvvnCl2vA/4 7afhlIuzAZ4mU358Gd/M 3RUK4bLlsiphAX0A7faOPH6pANi29we3Vc/tfdRt9iToBm919rK8DaY9oYOMbXYXIRkcof8yIMYyLa/E K8RvheVDd21oWenC1mKD AcQytb7ynIYJ9aQKMlzt67lZnRlJUZtMXIjwQYRwhWVt457lCKr9+4zgoO7cglAxPee/L7/p+TChQsXL k3MOVVrfuTtms2arN7/w iNCQs3rDQ3xOcJs+mpZta2AQlhMIY8j5ZjTUjXWmM6kccU/+9+aLoU51ODF6kXsr07Bw7eKBNzCntUSA Swb8nCPQ6YgoMeyCgFKJ XRsdO/ew+Tk5JR/9aFGTj6aFwMuQrZhwe7eVkFvkN1hn+WXNHPR+XVtpn/uueeazTEEBEKJ+MuYsWPLj 6QDVJy0sqqrqUHRFO2Kw HDhwoWLPwazsSrWrVtXzqKjY+YPcJX7Gtz4+QYkeJ6OZCzqs06nUXAnjq+5j4kJggvU/LZCKujXbzxmx TWsSRk5xlaZbh749ruwz 6/5CksC06Ejl66mypW5Wu/8cUeAMH/StWnYSojLWnQBZ0yZyTOBTswBfCssG/T9dxdM9vWgfz+HK4845 p9auTXbPdqdh+9kmFxv2 jdhesZcp8mzVx8Ntr47x+d8kpfYQQjIeh4qI2jOxrBgyIE78b+n9Y2ao4ftmx155RsUNdesUMo+/DFZu 74vjWLSNibRyotqvfqZ3 ePNSo/ojHNKDp7e6U1cUBQwNqfimLMUMW5ReVmxq7+VIs9BHR/458Lbq9ClKp8eSbvanW8SKGLfnmfzW 4JU05zf7dfPTChTGHAgW Pt3jyUgdRxC5eF1K2aMngD7C5+AxIl8OrhanvrQDQ6BqxLaGyxFVikUtaGHkIBEXYDBel99azGWO+WAA w+MyBlmyw3n/z8u7zSYT roCxIULFy7+BNv44VBIQTnbDLY6+SXozJjMmJqkfsvxKgSeFDb1jooCVaf7/nCn89utlgpJP22HaF1as aysLDNt+oydrq+Mikp95 elzfxFrn2HTSoiGDZns1whIbzBg89l18OPg27urZnKa2gtinhJpz/IeNyS9G98/tgMTk3X7WR/gwoULF y7+MZxvh299V0yYLd269 BtuhpbzEsRv59dH1QMBJRyB3t+A+EWtK1YjGLQsdQbG3FcE/R6dlob96fWd9gF2/NyOulyFsOTJST9m8 IKtXFQb91N56ug2e8qyZ JmUzBCgJXbj8C0HueTVRpNNiVXS31YXrPfchhIiEbvWqStcMAFCFdoJFcqfCYeVnGSp+oUX/9GXHrBp7 ZFRY7d6+Off07blWFVNf WsayWz6lowKWZckeXe3RPrsVGmHmKy+qzhnd+mJEc/aGVqX/aMY4nL5jP4G2gF4BHoM1tv3YQEc6sH4r zn1I4WWd1jWewhtN8ZkO iPPTTmeQIo9LDvCLS9BWpF3Z3beDWwJNuaLr/WdlA4u/8j0YbyQuARwh9MTT7au01ePz51IUWbQeKZL/ TZjuQm91SsNJgPu053fm sh9zZEfmvax1e6VYz3kmKiKXlK/HC1ltwCTfXsV3hqK7QN03h0NnDVygOBe1/3LsMabO8hItr8sW+xy3 quGh8nMNSCUp9NPTIir9 KDRgG8zWMqvZ7wnqsP+BoNYnlnjwsHSuzA12kt9nnOXpp6v5TBNK+6fSqxoTT+frQOzKhqHGdU5UaSC5 L3sggSkcnamgC8LGfsnq X8RGZHma/eHO8vsYh8ehZ2LC2iyCWXUTOwKd15Ybi73K/D6VcIYqryjB8Ucz4iVMaYj9LgFzl1M7HbyU xvLo+f0AAGetNvgz/ULl VgvI12qCLDsb6JA1sv/ll0z2JHoGw+ilKQgQRCgLmUzoYCPHYBmE533U8RWtCv4fGeuZLizZGQbQ20/1 Zz2r/9cKzpJNv8+sdlS7 N+NRo2Bi8wA9ay6xJrXsbl4ww3D8zYmvvdr+578Zt4tRzNgqGt1E5SMzj35g93b2J9esR9KpR6WtfbIx lwAZrVke8Op8x7DITzm9 A0DtIKlgI2PqVgokzSVS3Ozq15k5BzbOZQZroJfXttcnhTZHrhNn00Mk6Oi9qyBuqtje+WTyyeH0hrzC 2tW/aiDFa4HrVbsTI0MZ J94jeFnwwq2aqdl/56azcumXphroVq6l91hfW3XP0Qtn++jnvfKC+PeEtEB9khWB+Amelia++B5MduABnQw SsOOxn6zIAKQzOH9Br5t zHtKe1xLravgtuZ9cnXZ/7fhYvaAvEM+etQCtxRJUb6a2cAoHoc1OKbD19bAWlsiji/MYxL3kxudlYr5 SEhO4vWHj7VPTNt8xvi7 gRa8a4f0nbg8N/g2UQ8ISVc0vGmmEgK/afyxh4GLjROCzu0TMaOwDURFWPXeEet143+15Muu5c37UQhc d0IMbgEzlhJ4wbEwL7QN zGgVUFDW3pYOiD2gPywpHBM3jiruhNXLLcjKbf5166ADvy15tRMU24/sfH1NXEUSX7X+iiHKrnbJriw4 TBVdvM7+6vZQ3p9Os0QL KuWaGrBAOc9l1Zfy28Ac3Av3LEEfampq/prTe2dzg0P+1z+b/q0maXrS1iM2042SQfn3XloiE1HSNAIq 2q57ac8aP0DqBIFR3CM/ /cErICW7+9mj7kbYH/hkTAik6unNmM59h4NEUuNXhtpsXV7pwPPApeiq9u/sw2ws+hcL6SRAc+jAt8zq mZyOmfMPcnZ3H3DRd/py u8jG9LDTWAZh6yl/Q569ALNSbb2RyMbKmmmeZ0yO858Uon9KyurSbpJHq5/r+PNasskekm6bREnoEU8E KYeSvjuOW+OEuWijrYoV Vkewk3SrnYuHblDquoLQdEsDu3KmpsVfJA/MO7SOSxCTQFyyfVRgI3d+ygurBXH+9WVBRt8IbREwpOff 1aUU8hT2JFEu0ElWXsMu k/mYRH104EHmyySWO6A3vJhHuMbAVVnUd6T1xqFdR9QvEJfa0LQ/ZK+k1fsVcC2AfnlSo20i4nnf2B5D dUIHq3j0/VbsVWuN50/K BPjkY8r/l8O6rj0nzvLdnX62y1WjjJkHOnz0Pn8PjvJA0Av8Vc5U7Fi8PJE+J6GMQyup38aqkPhs0HpQ qXXv2/OhNS8GD9bNPJ/G /HY/+ygEv3glOy3IXvyliyrN7xoW9UKn/xTEMteWFd2KMGmud7Ik+481j8XUCbrT4F/Ok73fxBo4RexL JlYCUly+gCqQnt7J6wva CiBkEMHXz7kWXZKw0qUFOB7oCmBlJLbIKHZWGkeJePFLHI6HImTxQkrYTSMFz2BewG9FamkuzSZmayfl RSSyCEgjJiQSafjXgRcs ASsCBYvvfZNy4ukRi0kSoB/thT0QyoLbgcZPDwQ/O+i4FqB4Qo5VNYPjkwqaelwbhadpxLnhRg7Ic6Ar kg3LpZRv0h65Pyu5sbpB IUQS3AGqfYEqzumGETpjM1OGtdBk8Zxwvjf/P2o4OruQ1BPNWeNaNlAAjSesjRFHedArNt7WG1hFEX9X NZ4ifp4+Ju/PVP3XlMgp F0YqgAQHSbXICG1Hwygzszx0586U7WiDUecd+F+c52yeJSLLaHfJFDK5fmlJx2GlCPmuUkWFIuvDaqFb 3t3hBMXYuI0jiTbOyeYB YYhaVCRHsi62W/8zgrGE7fjvtpv8XdYtLNFLIAUQMQfB03ZyzrrODtrLJieARtfwcabFR7MU+MdZQHFM Isfne8e0z11C+qx6nac0 hqxciOywD3RJ185zk3WSM3lu5wsZ05l2lgT7vK1QgaYNNuOqK+aX/VW5khpg5LadlOHsdjsJG3vpAvO9 39o7rr/YZOUnGwe/mCRG bV8/K405fVV8lTcnLZwbvQRvUk0ZNbLp6nLhzOaZHWQfZjfRH0dwG4nJHoxHvOTdgchTCH67BACsJb7c h5CGHKVjksdP/oYFYcrO ckCCCbeIxY+OBCjhwQLXemRvTCVhOYkWYMkVbt7RmysHBY2JTRmD7WAMOBz6t7cEg4NfbXUphlEx7ZbM MWMFgAXVMcN0JzSoZI3Q VnOaBWLQqCL27MN9Iv+z54DoU+56AgbkdWgYV0BlAjZi66CCMzAnr5ujucwstkO3EKdIiE0YfPHu9Rum 7UfSsWvSgiiWOiutFkJJ PMITrhSHPHLZUNqJg7UitUzg3LmWOeCAaQbJPByEi24GDElKUSK3+D2ph/DZ9kzMq1aBLsrwAeuOg1wy 1vCQWuzimm85CUPW5zD2 bfWSXUm1f/fx7Rg7JILudt+r86j5q1zP/e5RF4Y/Nyom3q5TBibAoZAtSa0IkOtIaBC8BKe+VLlxmvy5 JgqhjTeqzzQ0Gmug+PO6 m1DvSgX34mvgRzCd0Ta2SGtBXL1xirUzAAEH16bpaGE3wkMxaCbBh/vJKX4IWouwufWVUVUl9KSm9wTO yOYGwrUW71FXOHsKnVS8 iBaapyIRRU662GjlrA2SuxpZrD+dTeVKgn89lAVa2dmNmdw2TS6huBdp02CASI1ecdYUuWjXd0j+f9wO WrTvC5OFSgldNAX8N0M5 owYUrmyXuThiSy1un1I8J3I1uaGY5CGbsqAPVpHp0ZOgY7h/VUQ36vd8tvNKCqQQoei+S2T7gqLytH3P jT1VNZWRxloZgZ9H8tft kmXJkBiKHWCBaathXE9zHRSTzI/rJJtYfW3OxYeJgfIXo1inob+bWtofkv5AK+xDHjuNjJjBP3G6O0wV GBQ+c7XCR0xHJnEwytcW bX3QgDssKChORPosPqY374kCc/6Rng4ykt83h64bhu0cFjJIpGZNrEWBlukKrA2LlhGuYhn/qfMRib3H Bjk5ZVqXdyDaJSJgVQFX pVnZKrGdrSYNxvkWVM6Z0QblA8mEUh+RT8H69mTSPU1PePIgD2F+QLdyTqSrcNYZDEhGSn7ZXfM+2Bdx CBmQXUjKF3RnoQ2CnRHz B5bwfqWgrLMbzmhO8MRotWpozq/qXvEpmPHylDL56zFEt8uV3TeN7aVYPOEMKPNSbOWslcLnBFqtZNsn oUmsGBiRYlKC41HG4AVT NOSbswUmM4yPED/pXj9/uJfiMWZxAyNbcLnUoJ3VWwEDke5uDMWzwL90/C0mYEjeZ3VS3WQi6NWXnR+a Pha3LfzoRlreSMLcazbq ouIWsKJDsgLVATObeigFzlXK7rWHfoWY3bUyWh8IzLDFIlR6nVom6F0pnAcy428INvUnad1X1jzmuS3s 8JH/tq2ZLaXMyIwrX66G 6GxkxWiV/eK7NvHdUk7YHO5Sn8hFR1SLqUvVsSTToD/7R8R2UnQPS7JHVZXUGdLIm2uGGEkViqwH0lVP uTR3uoFY8PrIWvYDPS3H yZAYDMtrbJexhXlGqUOqVq4SG4E9truzVvnFS7KXbJmMcfC1tVfjOymzTg/lBAeWIjcF+UJh1HbnfrYO 2ekxNdWeGks0C3UK2hUF ggeQOpsQH1SWQh1+zUvdTm8EooLC1iG2dyQMzlM2feBp3IbdWvbw+4YrmdqrbVvBqIE4BaQzN3j01Cef PP5RVAqFCBnddzDvVPeO e9wLHv+21yRZFAIGdhJ1MryuOa/SnWVX6TEKaiQ2PCSknNaR9JmB2MMWpLy1WlCLIczuAEJSsP1P3wFS EVFKTLgmjJpfUBHSc+uI +6Mx36Rua7pBxtACsunX6FvZQdoroDD2hWht8hHdqbmEX/qCcH1EKU3dvKJaTdP6awZxCqgH0+WhymIc UotUUOdGr1aAItyer3PT 0jwrOxKuOEIG4aXLCOIpcUD5uR8mI/TzGoZA7IxTPSH9q1kEN06OvOAuSzY2JgnLhfF9JCzQN4qOieuW AMJdw/RFpVZwYBzcD/h3 vXzH6tlsy7dy4K3GyaFDoy/sD2lseNM4xoIUaa7jnFOBhxthfZie6H34z5EDLxNIzvE9TKkBgqnM3MAC NjBfWQvPqEB4kdhmKaj9 VuHhiaCN6fCKNPQ5EekG35h0ZeQkyZhFGHH4qCeiYECcWaN4XkOSAhLtrhhZCapr7O2/GodaMvsBSotK EQq5O3lqJmClTxYK59HR WuQkazbN1dUvFWoCmelhgb1DJApgc4gEhI8oh2tIlfGigzD4puAyIdFaG1NKK6I4nMqPlvNDSs7HwIZW kOUcCPGTIBMXlfH3twtV pUDqiveY5dDAQ0UPbFD+2HUa6xE2HxkLYuA5LXC1W37OywGytnumopofFqCxVYwtIhZRwBiQavMnwFD8 KM+agpYQOGMHp/77gA/c Jl48X0CDilL4Qx6PraS8Dyat4VRWHdaJ+eLbtrlTPa4rYex3sKUxMEl7Be/td1nkW7exSQQ4MdQtETLW QiesyV2hU+TS12aPlFny InrnlhnjSiHLNDG4OfNR6fGgtmR1ew3Kz4IwDxvWnie9P3oC8wS5sWqxYeLvbw6qqzoxWQj726y/Zsy9 +pwr0ytfiRYTe029oiLq 1IZzGSgz460aDiVK2h/TzOZ/iyx8eLi+nJ8OwUh87Ax6qU5vOmjW5Ng6+0N4hvlxI6Xe0Pvs5tJdY67u vyrAgYNLhkGMJYRAzgaw 75SDMEJ5/h/dmCQDQlDxlkpRTBMRhQHAGIsKuQEAVH7wBtTyxRkHVR6oAS10tEuB1NqqmXoIYufAbDnO vKBICAEFhRqLR41LJrg4 U6QYbJuqvxXdMlyeNyh9WC9k49Keg9FzaDGIU+beRP641aelB1Crf6vb+t8jY45GlahLA0472KpEMyEf uFUvaw6m3NNDehxSVy1Z svnw2UXdFhx10aLtFgG9NnrMQ2FiQHWr7uIg/Ne7bsUZq/hE9Nm8ssLbz0Y8uWPnnzH4edZTLq7AShRt Jb8/MA1uCySsnrWmp2dC hOTpMfA6+GdhmIs87wN1eZU5cDXrl6hX87dW0mM6FWL8F3bApe4cIQwraNLY5VeAR14jSeHGGhedTe1w 6T5m1KQCRjewNA7HzeuU aOO8065SsYOyUUyY3xQTL1mpWTureMsrLm2B9qDzHebml7Y00AFEJRqCh1NZLnFiQ6VMvFcsndYylFYy ji5fwfFdNOra75YNavCT LXqAneGA+g07XooKsjDuGnLrTnwddr+fFnus9MlWlRRA86M/SnJimpHHiaE2rOnSoMMbBXB2YV88OLXb YCTGVbffS9bqCKIRJjJd LSJ2ZQQYNHqjbFTXClTcs159JSnJVWOHMAzx/7+ZFk+fULIBp3iFBGSN4+UQ04+Y8wcjWaheXpejhF3j U/YLqwVSxfbgfTwgHttU Z39kgTo7Vak3WRFgTg4/3lLh2M2zSr02jaZdKi75bdwAoJDiru38e09x4q7ElRAobSTeRfqBlOhsD7Dc BhdXScHUuTbT4ULFKGmH AzUavaWSyCUOqwqCIVlNqmYYyMkewDBK9NpPQ6QUJqabPDJHke8az3f7IaAGlG3dsHniTZRZP0zxyLQe XfCEuSYdhcumMyif2mdt pcUXWNiGrDmdutPuAaPDg21Q3V58u5zDiQxcKv3KZtLy8WWVfxTpWrfHfegYO7Lnht+AxksQmBc7b19U K91bZI2ApQB3IKxqUWU0 nz3UFtxTdISXzXxW7DtHESjtBZNmxUD8AXM7chQQLep2zRORk2mBMmp47btNil6L2cnwtV6LcCWEqBJF snfskkOO/9tYioqgYTW6 SjH0t4sjPtedCqwjXIzJ6hkszxVXjN1MZhXwcglUKijetLoXUowSuGoAYAAVQUFQ+Xg08+TPBHjH0DVJ j6fX2Y/do98/SXp0jORC PU0uGxpY6c7R4jiJ2qElN6+C1ZlJzxXFJDRQo06QZSBk0EkcL9JTofzzJ2NvyAYrS4xaHJmQ0rlHjj92 LEC+KnvrmRVc76qmu53H H61TPpbDgZixfJ3vXVhD9rcpzmQ9OD0J0cYojDJIFkrcg8rEFXCEZnV8J6YONkuTIRd3iLdhJImKSMzi iK7dWjAj+EroXB1vWnGe akA6LSMIxqBAXDi9PvMPAHxJCaGMIQpuOOteh2Rpw/XuyOZhBBv7MGME3P1MFFO1tIG5LZhaMCNr2M0J ZTPI5ekdhCFUH5weVbuD i5Yczsq4dl9s2m0j4wev7fYhf2Nix+hTd1jg5LRmp1SQb5Uf5ZeyDub8boHLXsRm3Z/Cc5C41Ju9w0U7 lfkJ0hLoFgBDtuh5uptQ GHzxB8BzbJ/b8mflmkg1h42kEs5eR4nsQZHqqnuBlIClnqKKHiFHMPT4hV4EFxhHjr0gDjMcjQGslE3l LCvN3VgY91Va1WRc3pMC JgsCiNJtVr7uHn0UsOU9EFhR7IMyESghe0wqMnQbIVDiy9NabNlHItTGWLixVJWNDbY3lc7LKEI2kAso rqOhKxnqDthl4pm1uF24 Fh5+miRjtsAJr+5XSIHgOqOQWquU8UCTFj7GoS4NL9WU3iFP7fmDnqchGcyJlUxrhEcHoUSx3Bk2hoiO PKtPQmvz7XNENTYKVXgY hsoe2himHP+UE8eYI4o6BttpR4Pg/cmKSXSpwkDVFvuzJT53wg5fWYMpiU7JnRWc0bOQ0EpbsJYhjBsM MLGK3XWO1kVpJzkULXbl 7VtL0knFqev3115/9Bm3xG7x3BR6X3dXJjDHazDkZCn0Dj5MG0YCq8xlkZT/pfIss8/UaavVkMNUSAYk NO46H6ADeupH/qGeHVSk 4ztlicXdzCW9rhUhK1B/u/O62TF/I/oMPhX+dv4wc2FmcU0CBrXgKM1uvBLszWEjDceTNXZcTW2+fEGh gFSI3JRdmwzxk8UX4Y5e BKIaGjJkmSEUXfX4id3RVpfnRtwGIg8mrtFcV8OLgNxOCVUIaB7O9ZwzVcsRIQEKQtjR46LPlsFCY7Z0 kvqls5cY/dwOzLJZb9Kq WZ0tRegQ7s4YSruCu8QoQ0ZZS0Bl+LsIbS1oDEDSHBojDKIaHAobD+qlNPf2c1+HZEw8iyqlMuzk3ky0 uxZXUY9RmHtpIMSt1LZE Dp5snlG9TNz/SEgKqNJmU1Xk7L3t3HeGS3EfeBNu0bRFt6SWrxo/w177oKvgWVExY1H6i/xQ/aIfAW9i 8oB96S/5d7fVKP5GkC4F honwsK46ANaCW8CnnpSCBdizBK7YES2fGdUxilBNYZ3FxruwqeSB3xEdsSHp8DjaCOi7YRFDrfoId5a/ vIZaDgLiEobrrXb20M7I W3kabSoTyfsTwKT/9z9Q+DH439Lp+9tIB3a+pNs54pl4FbHbM9m3b4iWfnS5dMyAIe93G7yTlVvKxPE9 KtulkhVQCobbhvHDGYQ0 mhIt/RoAzw9paUFQZRiMt8OGUZTJvJPJAHQhRnkwlDHEEwSXnCdZIKqTYggQepUjuPoxCSQCWLipm6NC Y8D08ecPaKtVgItfV8Xm DHAS7TzbPGDhQhEesU6Bg8TugrnnkUIUa5uiV0YE2riHW2NeWM7P8aKeqVLcBKePycwsReyg+FU72DWG UyORkRpWgARc76DeP9BT ZUMW6wUZB/hylC2JU8C7m77bKSXSgCpwvXSFbLrBKrnDi6Os6IXIsg6D/WET9B6vm4Z6rZx9iGRjIZvB BPWJMlJFkGFMqbnhJW0F +4X3LDbJcqQGLahcvBUsz1mhORnFbqtmkT6r1vxa0I+OP9N0jUWxs2MvxSyNoFOehgyJ7VlbAXPe6L3V t9Gi7LxnMfaVdlV22muU kf407vlQM+t24RMr0QGEBbcK+BAM6Ya78vETrmNqvWIJY3DjgB6Uu+I3aocXOi2VerwldJIL9B0Ve7M/ 0gioQrsg4yFkvy7cJVC0 oTDYAyrgTLtBi8PNtYo5Rv9Wd8N83G4zgM2GM+jXYkrOkKO+4IsvVBeGlAV9DhqtI1yGdMBu/Ap2pS+w T8EdlwsPPD0J8O4HvVq9 0ddcrkse/e5Prkouy3BR9zUS6DPCm1nBckJSg3WIwU7lNITD+8pfLlePl0dYjHiLUYhhcIXMxYMYhzjl 1HhMeqBe+TVkU/J0Dsay Z23rJf/DKonr7+fLSe+BYHeFrZjjNMym1cEbB/L5l9/wfDxO1ih6o45jGTbQBaYy6J8MwdsNhwWcewJy yZrmdTtJpIHDgY1YWIPf 7r5faNFvzeHtmnApuENDEDlLUx9anKoN6BgAFgvpDfkS72YZhFUdS13Dx4eIiBwar0TdGyjQZ4nvWJAw 9c9JEZbsTcQbGN/g8LR0 cyBdBNOZWr2073oKsa2MHXao350JBaeXrDnZPbRcDyDNtNWUtVuMMNLrxNeCNoy8LBUXsJAJNysCHI6s ygPRDQyxd3p1Hq2wPMYX hPtgH8hYxAyJQ02lu+8S3x1iFMqAVYI1LDvdEtf+b20dQ5Ik84uUuEgy31DVs3LbGAaD/SGFd1H0LXd3 FUeYXDRsAumhbiF4WC4X ydS5VkW9w25cxoC+ol7PdNb6ShTIJ2Y66W/qEH5LAPeZgESMJv0Ruax1KvmI3uysoMqdl3w0epmb/NO9 ojgigTBeERwNramol9N9 5Pfpk+Cxy6EpFRwJYmCwBTZc/vj3xYcvsZgfaOf01RtuvGC+ETBqCv3w4wES0eMqt5wJyWSEBNxfnr/P pnRaPUecpdh0EHp9qBzw rpPPRFjaDR2wY/5Y2sj06uDsl5mB/gVecAixnjm0q1NkuKfeJXg6Lbe8n0IcsnyVGEXXf4spWQnvgZFE 4B8tE+7Xt5PRj5BXb7xs PTXH+Z0gIYf7WqhQKre/gG/X/ZzrexabudKT1Hr6W/ilIodVqSngW6UzrtxFgd9H9KDcSeK+I3CcFIou 8gancoD14Kvhq0BIx7kO Q0xCyENm6uSbKkwyt1VWj9D+r46DlHsw4af0l6JUAbgGuOlc+T9y+xVC/B5x/PgrhAfwyBLTAC8ld8b5 X7/6HDoqJAAUdnBX/uzD D7anENdu04UnlgwUqbkyr9Ok0bmqzQH8umNsnFnEC4spAL22kM3bpHnUJNTHrgA5vo4m5ts7ejvUkPuQ IC1Icrlg0j73b2hL+SXH 0fe32m6rd0nPVJpN9GxQnV1/j8ymvqAQusSyzyXEUMS4hdwR/mv575Wyl/mGQQhgCArmcLgHI8OME2vl P6KwSNCXMCZddgoBkai6 sNU4nqvXHPx7b5N4A2h6x6bWF/lCvGt/VXyV6+XaJNgz0RqH97yHJT6PlBUjDr+GCZGBYVPioqSpbikV HSeYWC5o/GL2PZDDEHDL 6kc77XttnNl5/XRsvqd1+PdV6OJyKm4astnPCTYGJcwSKwxa9Y4ScJDRbqmrfoRM2CSwuAqyRH4lP9fU WoJFJZT+Ylx9M1pWOjBj iPxmsvhdnwug4WqXY6LlHOPcxa5jm9CEl52KbUz0OE0AAzmc1HL2t3FlG7/hnv7c6Zl5c57ZS6rZu5K1 ARqk77kNBymKp8iJ5poQ 8uTk1HEWsfdgCu9TmOJY2n5Q40zQhH/qwTJ/75iyZ+ioelf3uXVNnviZK+ALCe+kTd/dr8YScvaUJQm9 5OQmBClGrQx4phQARcfd 1U2OFGdFSk4inCdPOnwUwNdhL0POo7FT29/KD+iGjRWh8bGeR2kzSIN4CxA+0ZJXkYd+6e2c6GsSKXlI ZP360+Y7BQlBJjzeEYkE 4n/9fIMr2j63oiON+MkWsqgCxcuXLioQcRzYTHJZwq7+dUd+ef5zyDtywVMTi2wn+01JKk4S7z4AS8R3 cwz3tlsWDSADYEY0iNdE DpYFYA6eNOWQz3ivpCVcVVJ5eDR21325VeD/a8dur1aJpfG0oyEZkh98GGP7rj+l/GRP4dfwcLtCntYE 4ayuwCUW3EZnSXUZrd8U p8pJ1SZKfuzcqTkTaZ+R7RynK4HYTG07Qbut3eV72lyGUwr9UuN+Ww0o8S65SGi+fKoQmXBPbP4juI16 6K2LezB73WDKGHAGINSJ 6jdldxQ7xOa7vWAFvab+7+RYEG+CLl9UIYBxYub5gvIIb9lgBpbpQRL7bXdQGzzcJG64MCgv8Jv+e0Oq auqY4wrYq16OkRUVaLfh 9jONuc6BHyBqZdXnNmrWbdjffBeiyvm5+4TLu5PBbLh3JRA4aRHXPr2CXvgJHdRI2VVzloTjhs4NBCYU eskjQOChs0SmaXPqHWvW pIxtFxxUvMlI20Bex/yqYFYASCNmPKxXHgt2dMXpk5CJFGZVNdSPkPb9ClD0lWyReO55vqXLNvVx6ZGp 7pM310GGY3nTAv0G3vns p9OvMwMhCnSA3oQu7hFx9oLba2L6XW1VdsXwxoDddgT1UnyUoiVnrMBTYS/Q66jpQugIAhqQsPoobf9x Cv9TSVLhp6s84dn7KjBI Nz9qFrlnonOR8UfVsfuoJzVwzbUDcz6sVWUDUCxh1pjNaf5Nq6zSY2ECelITR25yc2aY/Nsf4DXy6cHW T67J8Oy/6dE36JYle5ml YYrJEz9tes6ckhR6de50GHzU92a9MfEwk2tQV3UHV47uaTbJN86jQllg0GO020dZEd9WxkgHC+j1k/Bd kn5+SqcaFizfTgo91zgI Fh+mLBq1H8jPEeZ5muSe5plafH9ReijkFrEpQToo1JR/cxN8tAaN4c/P/aY0XrxtQK2CMY8ixD5hi2v7 WtbeQr19Ixane86WFJCE 7dVWuyr1pPduJIwV3m8Viv8Q7NirrT8PEg/RkTDsTAuDGgXd154mPskT+uYue5EUTXBTJqcHAsSbc6mv vORc8mEstMHg+WwVEBkb eed7pdjlzv6KC/RtjusBLVqnNnsQb/pqbWZSaLcNdfcLbNgV49taZR4DHZJ0hjgU2dXJ8hGXT+W5j7am 62Td5wHBkxJc1nv+Rpm4 +c/cOcPb0d10x/I3qUw81IiLPGgQ85CE8A9Mq+P1O8U44L1oZzCjwpUlz4hr1qzChVdBHLkUa+YKgVlR 4vwsiJvHeTIhmU8M8Z6N Oc17AzlKodxozrOVax4X/D7X/HKld6sNFyTO9tliTvJ3l8iAmg+bARPGPocUqcmJ9ZH1qbjTP8UDa3j+ 32+O/ZWwim1vnFAuC1JM RxZZvdZv1J7GeZvI0l8DFaKVQmsndVHgqsI2alYd0Qq78PHv6YrEBXUxwSCNjhmcpO9ELqNi6/tIwlFD 5Yf+JOrN0BIWxqsyQAuT o3q4v3gR+dt1v+7v+ez4fAf3+jXen3KIT032bgaeVBUwajTHHZxlOv3/H20/ljh9m+Hnzfi8ZZfev5uS iV3Sb/jcck/CJlSNWCB1 I7vuFx1PfwArgXOIOaSBtKx6l3BFkCa464U30acrBe7GgGbmnqe0gXq5ZaTTTI1DAfxZsyVRXEHTNvd1 lYbY+c+r+/dX4VkN+l7H Etp//OLJPBqL9ivS32wmhwM72tFG5dGdro/SXjLf6e82BhyGaX1P1MUWi/pde+BAf15P6ybd6OUWSd1/ iwhJXWfjOuHyfajesSMf kzU4VMK1nCYWB+qvVkba/swD9Kt7nU5S3EDlOoL7A5EOSsD3Wse65Z6D1TrSCf0KeGxUkQQ0/tfiRA0V Go6lxfGohCKkQOLyeXos jlIwODY7izyry03KWdYC/ryj2h3Jjx5o18KnmUFSP8u5LnwHf3sbeT/u04bDCD8B5wgeQUs98KSfr8MC rfqJyYex9zH1iPQuyHAb n2K2bG1751FZglGlbx145w/rlXdqlfLPqeplFnXatnYx+QJuwFOBTaNlUrmrYZepTPTz23HS4Eh++nxJ ko/VDzuW2nSi+xr/d6zx Kf6ZYHyUF6xLcz72Tb05r7C8xMM9xtOy+VqZdzvjjvcGJ0a4ZT1gVc9zMPcVvdWeH4BMFzCm95AxJ0s8 xdob0VD+Hh/CZSpVmex2 Ml6EhjVmJ6mOBZAw5B6uaNL9ug3VNS2TFFtaox/0yd6qbGvacdTZ55qjK0pSxBNO4v/6/O2g5FtXrlC7 nx4znnvSk83dlgo+rL06 awyFtPJBOJvB5b0j+l2vdDxycHprm73Z4vvz36r+1jb6/cMCvfQOWPlBhqHsGAIwvoJR0XlP7UyAeHQj UoXsWp59y8W75MyIatuA N5pno5WhLiSFC6oM9pK6NMNJ+morbHqg0B7eNUXzIy74OHrmO+oq0VOK6jW8fVM8if/E55us110ejkUX w35Nthnt3764YpXZyq/O MGIwRKsoZFSqs2G6o76qjtRuEfikjMPfEj6IrsUaJaQOyGA4s6xeBuEzr8IUWOjO4MKOq1jgOMu8JhJb lIZAEv6LBgi+ya6533s2 AmWRP4sGXaIOZEtNv8Vx6hHq09HwB/+9h/jq04x5r8ev/wRZRxsLHSuDuq+EgyGXAvj5/yVTxQ9GyR1I tUJlC03vwZlb65qBYtFM oErfVlQ7Y+vDGOc/jQBuEOpTxeAkDFsEyL2CT/dM37m5o5Viwd0rHvmk/tkTnoCBo8dtILQFmwvAy7ls ZJY/H820/J7B+f7NeBDT TrFvr29qsu4gflHzEamUzC6e9UqXliqPzJnP+k8l3WvXE3X4xUdphLX3y1Mq09obwim4glxXZFQ0ptEt tFZX+qyyshlObTkn1d36 NFo4SSfvg+4R5KKo+3w+Uvk4uiza7UYcv0W/a9j1/UGbmgtujynBF7x7htLAntZQOIforrGoxxFWr7T5 UjXKFN/UJ9/uSSZMTJ+T lfxeIi/0oOv5SCrAEmnlKzGmx3fQd1eLh6AKOLl3ixsaMEIKlyVjgIhboHmSatN9lQcx/U4qQoTm0PYX bDMVn8ejzpfjNyk3K2QL MM1gmAbNnhuIqMWIoVpDnYAlL8hq/teJGPd+8w8hK4mlpplpt2c6Q+i6FP1BLLHrRtlmPVjWb7miTE91 UhYmSqlTB86SNrtTLE+/ ofDE7eroZ92xxRJlGKUKlXsel4AYvSg5CkAiZ4USyDi8J/NczEW6di9X7Yd4qCZ5DM9M5qYtWEAibzYV ppaBPNkeW+OvtS9vE3yy 29Zp+lF/jMhT9YJYWTGinMLe3jc+fnigAwGJIvoM9tgHZRq/fUcQLHsstDRMUTTvhhA4P6pejQPRqiuJ BiFhJmlVkS/qitoESP32 KKxpKmWoY+GgBupmQtLpYYsx5mb1MKWTlgKk0wA6zMT4KDiwnJRXYoUu0bjOnAndJN8NQ0Jxw9avXLIf moWt5Z5KxngMo1sVASWD BcptWIDUoBoYq5kyH0DS0yjIfXfNCf6oV+EPHh9sbMAeldJ7AvuAmLF7CCK027xIwa/edwGX5jSg9nWC jcEpDN7uT4AlUCNi/Sac 0JutFxFX7xqYuEWaah5p9CsVbNw5UwbUiiwEneuDjvr7GHH3Bb1GR/oZesJU5D4FWBbGojxwKLo7854N r24V14JNzexq2c7rBJvn y0jdK20W5Ezqsered7nAFxD5g21cy/ztCpIjcz36vY5tGgqX4PISxOxfE/dw2s14Z5bGMe82NaW8Gtq3 wCd5yv24xxyMFgmCuNrV DJpuiA5kUig/bj/aH+xs33+rqhNAQK+GzJBDv1CRXv51l01O0aX4lNoMJI0oAa+RXZstJNusFhYRpetF n5t9PdNlPpDUZS5NnYMj oPRiDztsxL0x27IBHFFxIowWe8bO41q4BMpkjzgqOX38sUt2+7SdM7l68vFmBbIUSKTuZOpbGHUeEmfd Kt2urWkIlcB4EI7KCMM9 rZR6tNegx34pdw0I8Xr2uc48A4j67ZG0V41ZM5Hp1NU95ffq4bHBtidnd+IDH2O4MX6HGGPq4J74OMYD BiGvgCUhPbQgM5bUb67z oukzE+2zsGyEIQgOJUB2vUX7DazJ+BjAOdrPu5M7KBDaXqofeJlhaqtGj29l8v7E8Ny62i5NoLlCN52D bV9uZFjVAveViKTsKeEv PsICwcXmjEBObYDw43+RhecLoiIMzR7kpByxWzYnEvIbofKXieMzehl+w6g84L26XWPtjBqeswlEBzaj slNxxbr+22eoTmF3BBsm W/XmyznLZae5gF9ohoeShyMA6thPF9qF/Oxfj5D+4DilzkJ7uqeEqAhW+tOjKIxgpmmhBkpNbTN8hE4s yZmd3gn58XwP93EJFUka DqPcr10WNW7umFghDSA5oV60fi0/AHx1mQOdDrs/EuitgUIYFY4+pbxmCiWG27M1iPEx9jg9S+sHd/ep 9dRLvIlrQHmOaJ5BjiWh ZCkwIPQYhnfsaJrEgCk4ei7JAc27N+RtbNjz40Wr1EdK03az2DFdl5oBZjVFLsAEp4CjqvaWr7DlrVyd Hi015+rz/JLgiekPZrAd FcDvMNQLHrvmT8bHv3/uXgTsCKqBo+JdBDCVDfYj9NErvRGfwx4+7WaLHjJisNLorhNlVSihEITtN76a sroH5Wqz5uCFTwHaSAbK ccpdtkTStnyFXQUKxhyq/nRa5XrXtoBo/Zby1dK344pSx6WDrgoReTmAykvb1X63ygTESM0ucKnSPIzD QG1+iyzQVYfs+uqDiM/V xBoRUmM0NHOrZNNLu83f77egEfByzQnfUVGg3LkxQ5oKd9Rsi76egcMtPpBGGWz11h7uRQrmj6IshNAX TH0tgCUwlU7wrCgrgtZP PGLHHoWKLp604imPOJWFEY4+9Whgw0gOYaSBEZwsfll6T9w16tziVhdiqpzho0USOiGAyMYSyKoKrOcI z9Y9Rd1ktE1q4kGQkzsW HYXWMviRUzuId8HYM5cuSGF44zvJSep7+gdg4U4e8AEqgBio4P1nTn+oHXpyaWE5fgGQ/9e8i68dVB1Q c5+9jNod692fi3IGN7So lP1iHgn/rSFsu+Cw/Uzc0/mii+in0hShy6HUiyCWfu9Sg9k1M3AQXPmzJYqfKcw/WihXcai6hAyXHBZO Y74AxXdK4XLu/3cRJnRC inI21/LfqJ+LrR/M+Vp536/Mnll3rZXqtdtRXlcxUk5btLzyq+S9Beqcg8nvD2mxgFW44fu1bMGJqaFX e3/Xqf8vgjNZG78utnc1 yQF9rLKXYicJvoW+VBBThcMYlWhbmfELNfXMwRbqqy4VM9OjN2WlI7p2Q0U7pq1kaMlHBlseYVJKie+k HFz77Y/M2BO4Rl1kUaV3 4TL7boe3O3PguEZGW+L4h1Mu6/tKYwX7tlaFvR92de43kloGZeazLHkuaB8rAbfTzqM9ihV1EX86f0yf iDpPK3suwQ/+cXrmWTHV ix9Z2N+jHS6sWoWOk8WUA/0lHkQZLHxZkyM29uDQRYmnUXwetKGy1k7cq60rwBRDdRDLdBduUwF/u5ir tdBC75V7Xq7XtG/p5VN1 MLlcdAm5DqAqhX/ub4W0HAD2DoLsd2GkNx+EqS2BioeZbFnyt79NL5yUf82kJouTUHNvcMxULqcT4HvK IKWrnlQSpM4yQo+/vLzc j6PHbezXIBbxNirgUWdIXoKyulx5r3YGGk97ddCf89ogfKNlzQyEuvzF5DInxGGYXCVKAGcThpkfYRI2 dTd3Nyi337vhQd7LIbCa aZ+L4wF4qrzBW1K95w2fIWZYI1nWeeyl8WzkS4aIUmjgz3oDgFyYgt+MzeW2ZehtH4kz8tVDP+rnjLIJ /Jose+g0ELuAXpGRZbEI9 ZIRfE+MdNUTMyJWEwcc8HFx6mjM6J//w3tFPXZiyg6Rx1Q9a8VamhCiK61L+28ynwIq7eP6zOVONtYfq zgvqXYeaGAKSQ0xo9P+z QSH6J+EnVy7imharD56Jms4MthKB/KVpG/3ZXZP1jw1d6x1dLaN19aXa9dffu3dH8HNpNrQbOZnFwOic hZJufZOEAst8Yv0mI1Px lqyTkU8vBfmTEZ3PW57apNeTBDvCTwfxlxQ5zdyA6J/ka2j/DnLWl3THPKRwLhB1BObndOnvfs8p7wg4 Dsci0xxjUqNw4Yr/dryI Hj4m4lZzc+4mAJTh02G/G83bc8O/6jwuDNQzAHSt1FozOLIZ5BuVgsAFHY8aCDIY39vuE9sqCGi2jhX/ nGZYsm04TMXpBKV05Bvj uahFZv7zPiO2cEalzD6Ip02w428StqB3NNFUNRPirYMTIIHz4rwpjJOzUB+Mlqlc1LIkcBt13cPZt4QX xOC56FST7HgT6slg693D u15z8ScO+evg9i2Cbo8xcfOOxLrw9vC3Ohemx+/1fzvTnOPiEIJymxUNpBgw0Gw5uxHPntUVjnIkB/oO UiWY5MtverK+HD5TxMdR Y0ha3ODAGnuom0e2lrDFyTZF3Np374bDP0I2X0I7dwIAeCgmquGw+dHyaiHADMqRGaqsDpJy3+alos4z BFdh3bO6WHKEnvErH0vE lJEDhkjYzh48jIyD/Hym7akkufWwla3k2e2ZV6Cp1/U+u9mP+Kbtry08sD9bNZxr0C1ySrVK6jAhYI+p /jAgLURXXreh89uFi7pc W0JzTnpTi2J97k4BtyEWdLKfU0o98oaLyqhTc8+q/ocUG9I4IIEgEp2gpO1nJlLeXjFkkRCbgyc+ucss c8Xfy/tD0/qNWplmDWSv e7nlawnvWV7A3xb8GyB6D1EvS0QCv9+mDD/NAXJ8WNLVuwdfR/9IG2Z3gUJtNR610fas/6dTr9HdURxu 6Yk98fnwJmvsJyUu8E2T vEP1caE8j1OOmr081hVYoUYMNGJH2gUr1sFlaKgoPdbT4bAe8DVIxSkhejyS5hohYNvuthcpmHr47ZF0 wU2L2rkxbfTAYT9lvHZm FK+ljGXTkAHkGLx2jzBdKlyxEdyK3XN1ziYtWqxVLvZAZcIZygTWCEsxYWAqC4QXQE5rHPzQnJ+H2DV/ +WAlG0XKUYBLJhYIfQqYvNU></span>
</div>
<strong>Patient Name</strong>: <span class=clinicalNoteMacroWysiwyg id=[id number] macronam e=PatientName spantype=macro title=#PatientName>ISAIAH JIMÉNEZ</span>
<strong>MRN</strong>: <span class=clinicalNoteMacroWysiwyg id=[id number] macroname=PatientMRN spantype=macro title=#PatientMRN>[id number]</span>
<strong>Date Of </strong>: <span class=clinicalNoteMacroWysiwyg id=[id number] macroname=PatientDateOfBirth spantype=macro title=#PatientDate OfBirth>1985</span>
<strong>Today's Provider: & nbsp;</strong><span class=clinicalNoteMacroWysiwyg id=[id number] macroname=MyName spantype=macro title=#MyName>Wiliam Park [facility]</span>
<strong>Date of Service: </strong><span class=clinicalNoteMacroWysiwyg id=[id number] macronam [...] frequently. She is now talking to her gold miner blasting about partial hysterectomy however she has not [...] As much she can tolerate</li></ol>
<span style=font-size:12px><span style=font-family:Tombstone,Helvetica,sans-serif></span></span>
<span class=cl inicalNoteSectionVisible id=[id number] internalbreaksection=fa lse originalname=Med [...] for today's visi t</span>
<span class=clinicalNoteSectionVisible id=[id number] internalbreaksection=false originalname=Smoking Status re cognizeconcepts=true spantype=section suppressempty=false>Smoking Status</span>
<span class=clinicalNotPremoWysiwyg id=macro [id number] macroname=PatientSmokingStatus parameters=ValueIfNull:Not recorded spantype=macro title=#PatientSmokingStatus(ValueIfNull:Not recorded )>Smoking Tobacco : Never smoker; Smokeless Tobacco : Never used smokeless tobacco; Vaping: Never vaped</span>
<hr><span class=clinicalNoteSectionVisibleid=[id number] internalbreaksection=false originalname=Depression recognizeconcepts=true spantype=section suppressempty=false>Depression Screening Tool Status</span>
<span class=clinicalNotMarietta Osteopathic ClinicmattioWysiwyg id=[id number] macroname=DepressionStatus p arameters=ValueIfNull:Not screened on today spantype=macro title=#Depr essionStatus(ValueIfNull:Not screened on today's visit.)> Screening Date: 09/19/2025; Plan: Patient declined treatment</span>

<span class=clinicalNot eSectionVisible id=[id number] internalbreaksection=false originalname=History of Present Illness recognizeconcepts=true spantype=&qu ot;section suppressempty=false>History of Present Illness</span>
<span style=font-size:12px><span style=font-family:Tombstone,Somtica,sans-serif><ol> <li>Patient reported that she has been anemic [...] has heavy bleeding. She has consulted with gold miner blasting in the past, however unable to tolerate [...] <li>GERD
</li> <li>IPMN
</li></ol>
<span style=font- size:12px><span style=font-family:Tombstone,Helvetica,sans- serif></span></span>
<span class=clinicalNoteSectionVisible id=[id number] internalbreaksection=false originalname=Medications recognizeconcepts=true [...] suppressempty=false&q uot;>Family History</span>
{ }

<span style=font-size:12px><span style=font-family:Tombstone,Helvetica,sans-serif></span></span>
<span class=clinicalNoteSectionVisible id=[id number] internalbreaksection=false originalname=Social History recognize concepts=true spantype=section suppressempty=false>Social His tory</span>
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

<span style=font-size:12px><span style=font-family:Tombstone,Helvetica,sans-serif></span></span><span class=clinicalNoteSectionVisible id=[id number] internalbreaksection=false originalname=Vital Signs and Pain Scale recognizeconcepts=true spantype=section suppressempty=false">Vital Signs</span>
<span class=clinicalNoteMacroWysiwyg id=&q uot;macro_[id number] macroname=PatientVitalSigns parameters=LookBackD ays:1,ValueIfNull:Not recorded on visit spantype=macro title=#PatientVitalSi gns(LookBackDays:1,ValueIfNull:Not recorded on visit)>Blood pressure: 132/76, Pulse: 75, Temperature: 98.6 F, Respirations: 16, O2 sat: 99%, Pain Scale: 0, Height: 66 in, Weight: 179.2 lb, BSA: 1.91, BMI: 28.92 kg/m2</span>
<span class=clinicalNoteMacroWysiwygid=[id number] macroname=Immunizations spantype=macro title=#Immunizations>Covid-19 vaccine (Medicine in Practice) (12/22/2023), Not given other reason; Flu vaccine [...] style=text-align:center><span class=clinicalNoteMacroWysiwyg id=macro_[id number] macroname=&quo t;PracticeLetterhead spantype=macro title=#PracticeLetterhead><img src=data:image/png;base64,nAONYk2UGufJMYNWOKhRQqGOAZACXPDcCWMZNSO0Ny+UAAAACXBIW RDXWY5JQAIDd WXPMy5tWTOUsdvHQLOSXJd5A39jWnHmy6HcIyhzoFHFYSIFIM20wCPbe8R3QTTrB8dkYJFac44fMWxzR SWFNO2vZZILQHscRJmxS UU5NbHfomqtHHJnCm7tCFk6yD0maRI8DGU3kHrhmod3JKVcZK8oZGrbzezoPACdVtDdvFw0qIH6mn5yB UQaDoWiJG2HDLWtcqNbG t3rINLvVDCnXsfdRNN7UER1USU0TRFuNJUqYvJ2LmDfKNYaNsTeScHtAVYeQFHjWZXyNtX3pxBhPrUBI yW1gZoepngvOUI2Fgd6f XM5Mm84d4vkryJpu1OlYrG6AWhxEJCzPjXrfbXkFGG7whVvhE4ekgPhRbC8nrWmMrRnl4MgvZK8cK3eA GStTjdoCk33rC9qHhE3c Ogmcqs5xPV5Ufo7dFR6Oj3peh1sMV7iVV3yw84hzOSzDoTpSC7uHPibyY8gRaPoWBPukDPeYl6awLKpn T9ycgvxPNVxJDfmnJUql LBkTA5gDsCxcK6cwnF2kXstuS1tsH6uZRRphKKfJq3gllTzDOOjOkJbR31zZ4Pxa2Jki6otdA7lBeUbJ lU1aUptqjb2xWBRYG1ko BP1yLgdI33kUqZir0QwJlMrtS98ZGNtQJ9dJ42nNeYjjE9jykZ1h7XYkgZ1Wzl0uFN2Jq6pqe6sFJ3wV N8tc63dtFKeTaNjEE0oB DwtIT1MATGoyNDmPNY7NX25CiUwiP6cSuLnTGD4a5VKm35xDSCWNS4cBGHTrB96x7Xbd9MxMeTmIRLcO LKdyY28m4XsWBGavM8iM vIfSGV7RESfeST0YkIgJcUxWETfNgeNLII2Mbm3WkEqHIB6KVNdQSaniGpSq8MvJbuTIQVuJHRhQTBjS JUoWVX7BLCdNlUxMGP2Q sZvNjW9mLX8VZD4BRHbaHDRNQXwVWIpQETxTJVuPEW9YODuImGsBND6ZaZiBaBlEqcbg6HuFLI9ErfqJ TwcR7IkSrCdwWfuqB7un V1jAzZmtV7lEA7mWY6tNgFeyM7nSK91ZU7cpSSkR6BGBN0fmL1oXztrFGu9AOBvAiMcRO3eVGWaKAY5B htbBVw5MA58OnD5QEWnG eBfQQBuDYvwaC3WHyMyD0IwJG04VVB8OrotoH4tePC5VVFgFfApNOYfSqhcVz34PQD7SFi2EtjfLDAtZ jAvE2U5UNWeFkC2bTOGT HvZdzmgiV5wwDGfB0TqMT71WRG9ZduyiH1gnZM5TOTgGiMqYUUaVujnMf30CDD5RHc6NkntRHVpVuYoX 8B0WEFmLm9nTQLap8Itv 6knnQtZv6W5nYPtjUFwM1JqeH8yoj7hCTQnUbjYFXm+MWijIPX4wMd+qP7fOuEcNLu4AtU6X3W3ETNyS GRrTUA7WRAiCeqQPYV8I tIBCwOaRNnpxwCuJaffUmK8D4ZtGoaEWZx+RIxogSbdpV8ekY5bDbAaK4DjKL92WF6fADE8q1NqGpA8s J4vRZ42TSoduG1bmI3yQ HJkZjpTZXE+GFnuJZM5uOqcl5YAcwA0RPT5vX2uANWhquIfzQIyWxYevNO7qYnqksI3SG7yWTfLQBQ5c FBabErqPhvjIxMzAMH1Q LA7SACxODKyUL07PUl9NIOdLNvsDJWcCCR8HmIrk6UVukK8m6wewi9zJnSrFk9jNE7xY9KgBNwhRUcaQ U3uNlxyDZEln8ZHdrC8j 01xqEpyrcTOK0QtnF1kJSQaAjHlHUgyoX3reP4aXXYuPlTmMO1wJ2izvJ0owPywYn6bZJ0kVDQ8I0WnV tG3V6hpfQ2GYcuew6Djw nk+DDczbtChGsDsh2BbvJQ5sO7aMoS5K1OsOogGVQM+QDpesVf1iKLsPXAeXoW7L2guFJUuOVQdUT0rF SJyIj8+zsZ8TBMYKnUWE EFUeJztnXVgFEcXwN/K+lV8hJJ8RADvotNKSu/yXYGioMwvWQGnTqxhqg3ESOihBHUaBPvnV4qa/HZ3v x2PkgtnOiAAprC/uz92d 97Izu6+sNwaZoBnVXYxAHkkXTRqiEd3FWyZPmGkgLUaBJuIuARKqYXyWMfrYOrwRLXXigCWG2IZfQthg dGeSKARoPDsPFphrC9qW mD+X0CGqVs/dwaUaLnE6gYXnnKTi6cFFZ1eqw36IOkurUKVh/mnuM3uJL9YHyKq3llSSq4p8lz7YAJvV EQWJeIFplXcwaZMop6j/ bJsTkAsZBsLHNG8zTkG13j5s+hvzHiJR0M0QXn8BpMX2gACee4TJBDtNQBWeOmMtMvF9gdYZhbqOil5q AXVOkjk0lNUQSnyQd1U2 4XRVi56L4QRbepJvn4d16zcGqFxlpMP6sUVPVREBl1NAnBaTEoXiSAOp+LEEumob7+Z+vTNXY0dOXsEP lpGj0Kq+xHhJ0Tkf0QEo 3zd+8ef/PaK1WhZvOIqwpMYMLGmORHVCXDdooy21/oLf/5BkMSEiRPH//PEiXPyQ6eMYrqvvzj+9bpXj +8gfGelAr4r30A8JaYK3 4PCRZNKmRliDSw9pWuYNWz6qcS0aP35gv3WtnU2S8QTD/IijPay09//E06eOQtLnS8N2lzUbzSkgsdXB ATef5nhxe81ajdXGp911 qS/v/2fVPukgdFNNKjvQXIbJU0Jpt1qPYa2ufLzeLbhyc6ayiHrvX+/v7//rILmsn9cKZ+48+iQk2fgs 3GJcrm0jRtwG+zetnvJn EaNm/qlcKfxZtZXqjhoStjYOHLfv0tBzQ2QGuB9/XBIZr5M+r7V13BKGpZkGmhYm3PQa2whycE7PvBWZ TAYDAYDQRAkSRIAHMdxC Lh2KDzUJpePRk8BN9sBP68vTDLu5hGNw/cidXXfCbnidS0ZAcd3uSAjsiu+qzdG5CeVQErZUNAnBUbyJ L7SUvVJMlIYVfdbR7SQs If2n+3EMf9+zYjE1jkjj37swTCilb2Jz2Zb2VnPseyZk7Hc96D/jpTmIe7nVRjzORndhDa8/5zdwy0Wt Tsg7eLd+6EhznNNM2khP pOkKYNWm/+XVagLZE0ptx72/+N6A1bUyt8SYVK7CQqrYkCob30Jq3P4zjQMYgHKuwm8+VpUFq45izbbK ngnXdJDNGKxBvn3Lvb2e buXSIVg/b6ueOO9D5cad3304kHURoaJLKgXOa5riwg5lt01afSOcOghDSKrYTYFF9ZdK4mR8RjywOkGd ObiPGWFaRNGQeMlF4ant 2DEcPdn4hK4nCCwXnz2mrPd4BZ2i868fsGA6ZdcuJx1oUc00GP7at16h+Yi1PUfz/9+WoB23nv34l713 n4Hs2AdsXAqc9/fth1/e Py7wH54hMtwPWcHEcvbQMiK+/z7nUr2nyabd8zWesCPLaztgpnWjQdR0lckftB7WOealSPSYDu1pFSeN sTRbrwncRHAnTBx1HlIL +GP+o4e6+pf2tCUZjojhYjYnvO0eB7pAc6Sfwb39mbDjmjYx6fZ7Uh0nhHo4D0mVu1txYlYxzJp6W36t epAW4LWYQDAlahgYICo6 XzLeFUoW+7SxYsFicXHx/x9gMcx8LvnKAiuXs4zEDd77ldJ9hrPpdxLDpgFHkfy52ZarxrvCLPvLuxqU U2QgXUkHPo178GETXmdv 40H4QZxGrG0kzSIs7r4g9Zf5qy7VjbW+W+AFRYGIYS+GTmqnI+oz4ybfJ1Yzf+Y2FwFQqEK5AOGsowIq Y0HYwT5eEaHp6+nt5u9Q 6ukhV9ai5QJoPYvZywy240zH+dUowraDbKNczX25CyrKm4sGLmiyJmB+a+No2rQVVMcUih2dedMzzAtI l654G7IzXEvJMityTIvx d7tdX4Rve5kIBeDg7lRUZGLRxKTxAl1JUNqZvTWmGo766+HRz9+BWDIQp9eG2AY5yv5ZlFxFKKq2P1H0 20SZejQ5R00Q8LAKLZWN mKWNpD54QPZV70abydL6qfVpotWyLCkLgAom12zws1mbveDsJ07NqM9UkhTzg9Zyz5hCrPj7h5gi7nuZ K0gTJN12kwBz9jUAyw8B uzqteKfFOY/BNUUCIz79Ccxw87tt42StTAMvG4yHCuE0wmbQ/4gvV4/z24mKODNNz7Ug5SnS+9Iq1FH/ 6F30JYtZGBi7joHIFunv 783r1/nj1i/HBMKHSdOmRlyKBAYuTLu2IIjr8Rmp21QcF/R/MLBCgsDqSmpDMPUq1+zRDcg6Km23mWvX ikRlhHPAva4a6iA+/Vfu ThBtfc4t1z9XrIFwTksNdrYPk6KAMFhZb5p3ZJ5/cuie17kE2+7JSDMCsD6nGWcaQCSp4jCJvt5zxSYI gUHyV3x9TA4BKEoBJZ76 CRmLRkBjxhUgMGMMHgrDs56Fs0+/sFf7mUAqyd8txdgyKBhdb1uf02NpW7RQv5+2Hpg996TQjKfuvcJL KFGI+Z6THRXMSCzWiVBs NeQYTpu2DINx6cRTjh3c7e2pRo2iErhBNBeoYCIpix1xf64SjsmCc0kzj3bgss8rDvuPHeoxOrhTbqEg z9xfWD+vWCFhQGKokiSt HdwBACTHzFB/KZqFpOX5xs+hqRLG2caiu2DBbmleMpFfyPRXUhaCCrB5PWk1tEP6jOCutBdkekF4TMBB ARAAAGERqPRaNSqPGWeU ojBPBP5xjTxSFxAnAARodgBabYK9w0C0yb+4IzHMFf9zXKqzxRa4UJppKymv9xFrBHySrsVoA/wRYMVF rq7JcxpUmdIqNJkf7ZfH 75y+iIfg5ktUh0bOFydkP4Mmo8t9wSdLnyTJGc0FyeuhJqNnhdgubHaAbPcWgYDYRmnodg7okx87ceS9 3qkNCZJO0Binj6UvErtY +4/kZlrDrcu7Qh8c68yJayj7roYNFTRzQDUqWmPGHTWwHTk/TN2eUw1iuVPQzvbRMYWi3kVNL1EHRlkT 0+jPy1x7X6zk9Oslcorr 8PGje/zvEbpgPAnq6vGYkmrpEsxx/AIKl/Bf+S2oDCcWHQeSUMX81e5F7JciI55t/y5e+Q0Ls1yJ+rnI 90ujwQTYN3y0n929IzRn lOZZRQDozwrFmLk8vku3ov79EFji9wvGsxYRhS2aLJM6yrEERPDsEDonvsRmXpMO15+vhzLpqalxyckb t2y5fD+/S/jXpbxKtOle /nfJr9cJDyq4TgdM8mWlzxwfDuLDQur0gn6MG4/WP3VR1dR0/PQWHtLuCJUGCm4AVRS661mILa16eEtE 5bCfcuWdDtXrsFXunW/U z36/W5sft64128/f/ZsyJmzi+rGJ848dzy70ZkLPa4v6TsFeFsTqnlB7IxsMdm/szA5SEUKRA+io8t6+ oWk6qYkwAvmcsaS8ixmc 49Y5spq7R0++avQN6kI4wV8QRKGFY7WbIO0wq1LSdNYwGLMrIhT/xoVCeyiF3z+vd1IIBz22JNzokRnG gpcHZymTZuBEGIRQghl5 ZyYNUfbs3lwG5w7XixtZt6iy/cr+/m73BCTNAl/EfzRgXJd28/PKX0uV7Z0mtHKRlf220QYTaeEY7uXR ROwVQRjU81SxUCmeZ8iU vu5i+erbdyb8poYt3zO5mVU9r4XuotRNV4SnmjyMIrCQiu9mAwgg5PullkR7+cbhmMLxdNFJeV3Rqf25 tCl8+9pw2Aw4CQw8tRAP M6YS9vooh6qVD6DRQNOWeVxVARTnrvUQzDgBVMtsKgrIm9veFmJny30nlstQLaWOMOVeAHlQaaSCU9FT /csXCtqa6NCx3tKls9E9 JkgZke4N65o2u8lV/IjDCXHyiZxDwf3OMx01HnSiwxBdAxo0ot0f9Dg8lcKvTpXZcwTqc9wTcy3rLU2E e992jtAyw31iHkHtWq1j ZkvFjxI/OVy/274ky01jOfkbkauVh3LahsYS8fa302CwGtjWNX/Z9WyVLQorre9om0wqrTFZ/62fauLm 4xE92nPw/0NRtbAwuxFC bxY608wMSsVU6vMWepme0B0J5HBKX1iAj8Qn5sZ6Wi7cmZ319qXe9kJKELwiw4dBJsDgfAozC+UWzdvD s1bEEn66qrq+cxM9toB3 y3yMaddA7f1IJTZBJTd/xBhtSVQJdSGf8a3d4cjmCnPe7yrVABcv5V+8p3Lt3SQPN7Ndflvs9SzvHly1 SiyFUAC+11S4EYRkDUkR jofCSZhPelJAaqF1BlIl7beUXJ3unFmWVDVQjLbbR+SnPmav0jHiujYsgztu+0KyhhRPMv8Snnz+NbV0 AqVp7sFcKWR/wsEZPyrV 8cm1KN1jfbQyX6SFW0zRiHw9V//PZG7brCDQnjruzotgGfqp6MxOatNFJXnOMJbxGtQbRHKZNh9CoJul Jwm95Q9eX3EBcZDs4jHo d+3skYjGyF1lCojvlBxT9rEnLDF4HxLWvAkHvZKs0DYf3Tn1cttfjpVOHgYF7Ib3EBmBKqXMnp4Q2KIK 01Obt2+O0bJkXV2Is2lW /pxtATMW1fs422cIYr2iIwMcYyrKEKLYbCZ1Et3Hw6+OqZ4XsbLl7WSwZKa33t6T5vw9hh48z8LFv762 1BAYmikl6HD2dkIin+Xv 7w0KfI58iX+I1LoJDgHEDY2UrkstyExmpVzF+3FWCknyItVZHHkwa9+Xhz8NKTGORf7GgQ05o/3BK39d BkWEclIwkK41EFTjzSa6 sjrjhXJJFxBzn5K7vOZb97Jl0NQHdNiWfT9ASBsrZ0roDgS0Kpk5ZCzVgvqrD3d1uDhX+rul4SorsT07 jhJFnkUp9huJDmwxPT8+ 3pd+3eGhXuyc24ZCFlreqCXDs0SsZxGJ0eCCJRxx86yrYFyMy7URQIQfGEBE/Dkvh3DCzkNJtIvRgw0e e/NaLZYzhh7vq6Cm1Dgz F0JGMnizBC/1TCLbuJBIq31kUEgUmX2aAsqo+HqlFGTqI3hlFE26ubP6+ib8LFfpiHpwRaLMmM5x7pTj xBVue8yp/b0QN+NzmMZQ iyR/JLoMwHc4TOwpteQeJYiCrvQ1L6zbt19iwQLqn6IvxjGdfx5EwUTisi0B8MKPk0Jd933D/9FiIL8o +8+lrCRZS8mUFjRVubZ6 02YpdXG14vtpdYvjZMBxLyFZvr7a5oERtDNP/yd61QBzorXm33p3s2ofMJltDukGEKnPmPe1aLsBGgVV hEiaLEILZyvCLvuvHbJr efvTlMIeVWKgktArsUAuuUrq3gnQggm0Aljmd1tG56osNay6qIJ2yBnkHcBUv1e7XuLU1GYTdXwCxVYT j1iaBkIbII2Ff3NbKDKc 1K7owC1x0pkaLil9m/5Zto8DmBx4NzZQZRYknSLCH0e+lIuQPjskzcTzajEQlUjwN9Vjup4hMIdFxcqO WyRBEFfMABNg8UGxYgM4 44xFTKoQ6YsH1ajQV9TlKK+KDVShS9pRmfbpfeDKoHuYfvKVTAsh6efgEvTIMqZqcLtwy7iHEUHQ2F0G v06J5VH/yz6q/C9rUszk VA7WyitVlkM2gD7hFrVuiRZ61k2/2G5l0S2djXQZGLlkI3K7uU+CdARIBKnZYXlTYYcUNgrt4TVWriF6 7LCXrm48bPRcPsjEeGBR QzTozG1hb0mmrdN2D1wnzrkRNXXNUQWpxB3Uh0UCbZALY4VTOMVEDnrJN9AlYdQpdD2EHi1Z0lu0aZkj hwFJDp3BSVWsSlOMYRIb 2Tg6Vzh8RbNdouAxWJzkhOprl6mAQcnNvqd0a0oKyrUDBiw6Gy6KbBLWV577EpZB41QUetBvs2JhwvGd zNS+fPyLONZcpWK+axgh yNPLKbPB3WzXIOTIiOasBkqepJD70PFN5D0579MD1v8TI/j62++munWWy7zKZreeiCnzxeEvGQYKSpLd vZNC0u87Pdhhg6mIdrIU Hjvz1EqrLv0V90UFzYLLbVKEowvg8BCmDfPHVSxH2bwrvirbmTK06uoT5hXCC8iboZjXGscpnI1N/YQY hPurOOp2HiWSh2Zt0MOw 77gAc32OsWqvxLM+ed+H9hW72f0z/P36JI0wR9Km2CZCL/PkTuWcas/Cki6j98D089fPU+mew0enDNvY r8cgxulfJILJcnlaNCsI u4wNA3vGaIzGznaC1y06gh0smoRRvZuLcoKIimE1HlyFXLk+FOtVlaXepENCVsLo6HI6Z7en21BFQeuS jnD27KPNSuGrAoAMS2Wg KeUVB56h53DDJIxprF30Ru8v6ph2E0XQCNqjOWC/ffD1OuyF5zWOCTgqdzeMcLOyxf8MCV4GRZxDmBf8 nUmII38q+Pp+WLrDJ3qu ITJknQMb3AeVT8eCLM/RL6NWk3Af1YAwed5VJzMNaYpWWEx3fwonN/9nlrLo7BdNOLDagwh5u5mb64xd PwsNAhpQWm137NO8+Tl9 VAQinltBUJx+qfIKHc4C0MY1+4d1oSl4VSQfC8WYRF4gWFz2uGGe37fJc/FsFZ3MCKlzUVIHOXi4izXO al8XqcyQEIEIH6NkFDr/ Zq1rdl/JIFQbPRjtVpPUJZmr7//7xUVMa6PCyAv9l15C8OsRt2i4ecJxzMXLclr/bi90FR3laqilJ1Ck LWQJt3YK817dgKnd25Zx MgoE6X0aNP+A6hsfBkGLZX/MtYbuuyhdpezKt2QGjWigPTeZwJeiS39c2yLmHtny3USxsXzwNnau9Uvr 7Of/0WtS8sMKVHZPCQYD NA/CEcTAfHCu9HZsK7heU6QOetjhhMwxgpHQuUZXcNwRUG3+Yao7Kb97o63Q85NvR9IkYt+fz9LoPgaK z2gmp4iA3d9rENA3kjTY Hohb693z+F1dlFpI9v/Fugub8uMpHfncr9bHYf9pUbTHL2rBKNZJHXFBwN5b3XvTVFfp0YXp0kzCiQFH 9GOnAweClwcQL91Rz59G jAN4a3PqrYyHz/5M7s8bnDrkWg0y2tvRXJlT277xXs1WbOx43wVcivypRpG74aCt0w/wBuXnwtbi7Bt3 d9uv1i2PePmRardDHLbE 1efHA7Sq39SKfdPUbXb0LH643W0b/NU6LIrI5gudrqR4Wx/522QHUpOHc4Iblw9qK4O1aGNZhy2zc4/R 5kYVMzciMMPkfS9evqyE bxOctLv7Gyo4tk1vfmzxZyusSsOJ3jNQFKMziV0cIzErlhw870g15jmHKZ1/dsCenHAGQ2KQaPYYECgh 1QenmCn3F4NCdaqo6i43 +VBAJ384cLfaAtDJOWmYuGlhOIxHFf2scK3974OFHtxO0qk9eDb1X9hp0NlzANzP4DPYHaCuPdvbGpuz EisTktiMlJGjxu/88/dP r6+JL07fOLIE7229ohpiGyQkbM00+uh7RfqNCluSdmbh4qhvaGj3XN8C2QbiVOBBR3ku6BapETFiW+q6 LqlocwQnnYI3725MXm5l LDB5kVte0WUtcavy5OgPSk06GGeqMKgnA03yXo89aIt9smRLHvMH1LBVQZwjtwIyVoo/wowhDZZCh0O0 N+Nn/J26CNvwokalUEjk ODEp7Ua4IiynsnHMJHgBK01/ZJD9RGJ0bDDTeWBx1lZGCD73Eef4K999WXwm2z1pO1rlTKyZlFfEEr1f y+nAqEdIcqTrewou3AwM cmceYomW1l8ea64Hax8vuvmF7a1lPFanpDMP2ZOdzV56OmqXftBCuAFcP8ro7hMlPb0WLHqurL0sVWBn MSPwPNuYeYZ0Fei9U31k 5ubphlZiprpuNgs0Jwmh8Pb3mkTGRnYAlqHNz7gQhVLRLOx9q3xev0IJMw+RTankjujT5XaFZDsK8VfX EN6ldYT65bG+f6dfdZJv boh3+GNrURkCdNsqsflN07mD8y/dYwixvn2CZrK1eEp1CA1u3B50qljjTJnG20LD4/CWsCUBrDCwkBiQ gJBkpxYqtFpxBWr+1YOd Ty1YZuu6ybvqYgKomCMqeP6DtNWNfLyS6zKx9bUU04mX8T63/sxjr//COVNnjWqaqrMEjyfu0qCGVOrK 5HgfwRJkkKx+W4Gi7igN WR0mZt+0/F3ncbcHB8zCjGifQreeBF+EC9PGQCKhjJhQkeHtmylNLFMv4AUpU6vViBWUWHw6Nc4eN4mP pVcVWFKGKywMJCTkwMAR lWfe3D6QZMNMLdUa+lh28vrDadUMriiDpjz3uTDVmC8/GhZwHhb8fEUdgF5wkHXl4L5Ed0XyTE80b9HY XQQsSVEKZGj0sjh7YXUh azRaDQaGIM+0jlOccGAWEuv6Jg8rPol27vAzFQOTrBMOZZMO1Wmsj1fTMsw6CK4XkMggzKtNxDSnV7fB RGSKYuJSb7EhxLMjtqSP JuR2lcNZgPRR5SK96lf4hctQAODrPwk6Dr8Oho+sukLvi6X0ID/MqGtymbb4S9sBKIZNhI4WvPg6i76/ vQksEgTT9VTaGrGOiFRR bGfOYWbGKezBmzMocmxReZKnGt0BpIvzOEC9Etxk6dhWAs2y9SQb8EY+HjIYIsuGxFBCBt8G+0hjmEQQ itjqtRnjTOoPc4ZJUVAN GOXNXdiaJlmhbB6dnzbBBOI5LADQaWCwtUAlKoaoii7KsfQyuYarczkZZzTsoJxWF7i4604d1mzxReoM qrrMhUkywBBACAAApycu EFLMEegzDIzCXMsXpn5X+xnKBmAcq1CnjCgYQ03Z/cgnYaoXkfFckijfpc1/ZWEcNkeCcjFV80xPdjdw V80+UNllK9ADiUtPo1lY P12A0kvogfHtuTpKdQqdg17K/zLBCnhKoS3qPQZa3yPZpWiWNK/Tt2oult0bz6qpSRxj5sRBxrsUBWMi PHHJjaXaMFj6TFz1QWch n3CCdtIB4JaAFReC7p5FNz7HDs0xdp6DiK8ICtpHNLzZqT5uTLova0bghbm3Nwt1rwHDUhtM+tHCATGp xHqHAWIpcCyYNHGAQRCA TgcS4tgejQsHHrWsMTchHfZWQOiSYjvlKx5E9cMceINfqQ3lbiyyiTXttch01aRm3cSeXGZBIRojWL7F 4tJIcdhaTZXEjjn5KzCH VtZXbeMfibk7c9XKPH5LSu9r0nTv9UfUiI15ifQ/WpQEarMLEL7nXZA1dgv3OjKvw4OMyWUnYdTOQXXR VGjrsTGjrkdqmscDGbru dFdNY6ToKvEG4vWT7iQnQAnrL4ecz7v69wL2+/SosAq+fBrz0pJI57A/rLaFPdVduWp6U5JmhOq4ZFsk iY4/AkjXnVAxMAqVH3jf USCEJR8PdS/S31g/w3epKXBnFiHdl8o1Gho8Df4buBLqLfICHbWjzAu6sZJH9xjtPDMIY24UQFMWgjJA 1OPeWNgnrj8/Xj8F6h4k 3+iFihM0efhYn66gaP6nSbPr7J7d8pSLPXivfb4xHCxz55+FaPXAfu++MzOZDIyOArGd0K21KrQ+nWLr z95XWD+9gH6jQcYm+U9e /VEAqEg+tT942t5r6fJJdJczj8vUqPpSTK/Y0ssQj5vuDHe03IIvYEyt1YCakNbEazJrIMwKJWd5Bwvm dQwXJ1qjzWJ5vjBNnhv7 bj4dZHnBk45EZBW3axUnMP+XnR12iglx9Ic4SJ1Giy/5vMf0eyHnVyJZNyx6pdVKVCiZP/Fk5EzHAhYq PEzwo5cDzVkjciy9dNoF XSMUL8CUrm4JxSOxKe47ud5e5s35DMFLzsaUruNFJmCbDnL8al12+mop87LclW3kDEZOjwosyxEQkTqY /9pe/pztq5bmZ70d86zM UwgQZYBOReQUpRh9csNLLYaImbJTAdr+3VgesuCpZzmKtz93mOQS9E9DYeEUNGbo9Ax/izh3rOKJGSCS GOzAuMIA14aKA81+UT88 tkCsvcg6K4oUIerhkLmvG5xRxorc5cEqx0uHrtKeQ0+43Rsu+zQ08YNfuhlkiy8Tgo8/o2fTheDOdcDT zAJe02MWgOag+Z+mF34W LzODTZXVx0BWG0HVlZl+73IQzhSwp2BoHRLBCBKSNu1HEMGMhocSrPZ8kOHTWNPReK//cBed25cRXmMx of4RJ/VcTHDdsq7NP3uI I1aQ+k1iQKjdr5ULrwgrauDNuAUvIAqs5AnanzdqSCQ1RD7wH/uCxPikFCkqRykbBKsqtkQyWxArwPT1 EKCAKEYOEbyIso2/Iz8Q Bdiq9S9qqCZAgQKrfUgy6R/q9ek2sl7ee1QWjJiCKexMCN2db8JedNBJhWKceh0gBeRe/FSyBgArLAwF kQ/frz0l1+pm46LmmHKZ rBKKQntrnMHjtxXZMTzViOTeSOfCh7IXBx8NduptsZKBWFJmz3FNzITzMOSGSQKIaOZhDU3Xjgoblaam yMdBBBvYidDE5mI2c7V2 KJJvRl5kAGLHeGPlXRWPCsQ+Ts0Riwcg72eW5/4yoF9H1WZZ7NHtSmULxd/VlCbUHFispHmAO1cPCGZa KI7n0fmtKjPgx03saheU gmO3pzziSIzNFUHwrjQxZOR7IIMmUoD9OZu0fw0kvGerukOoZnm5SWrvuyWKLVEyrnyMAyGq3vpzch41 ttD8Pz6+tPFlBqwwsIUi FXdLS9Jc3gK0Tt0RQwz6Gg0KIo2HAsIhmQye04A2tBhLFePHP4j4kNH2PzmjAsVUJIqE+fJI26M/mHix KgLIUJGAEqPRdXSAv3UX DOvyQRsaGM2qXmOWyUyzSMotCooj/++/FeDt3/y9/MYF0/QaYqIQAsAIdfdq+hVRdQe1VH94l5FobVpj CEx0gHmEAgZywFgO0ZRB T17Wu/ebb2reo8eTZn5qNPXYKcZIMCcX7Qcr6zsh8uctKb7Gkdu2xRg3WoDItBwtGH3cWYN5cUZNvAr4 +DB3nsQWZCcznOqXPDOo ZiuErbIBHQSwtXyRLS6cR1zEuu7qwg3s3z+Yxh31GGlX5BKinXV8u+UmqbqG0vheqCdpPBiuEMVU3+rr RRodHTjJFLCYKCVCvGrZ 6Lv48Z0TRWEhi9+f6gzkeDWoKHhNiy2lvHG4d+i1+t/BvN6in4/MCKEBKpHIKlNHJgVJFhMro4LIKgkk UDQqHHjeQsW+offD1BcD h6ssDD/IYzq0Om6+2zfoTQPEc32joPGAWfSKptNPSnnET/nvAiBq64M/O3slwB9i9m5/hLr6Bodxl8N8 wkVHIKgI703yv3lMILHB wPE/FWvqZMCIZrVrHpPxPLOWIoiBNCQIlMENYsEcoQCNPDHqtk5AMGOnYSLMTpzDQGSCgTKHVvVepJWV VFLsro7YCAVkHYRVDswQ ULSBjCZFWgLwxCMGFXQcfm17T8/Y/9fDXqs0+aXRpHVeLymXckYD3Sv27PiE7vrvqBrw6TrXTiNc8Nl0 kt53fk8+/yTP9LClTtwB RLdvG4EOYVH5BC1nQqDUjcseNLGXRQcz5vD+c/m6Z13hxop9kg3Q5bLhxupJF9KZIQJjy7JyFu4dk7bP Ia8MvWxs267okDIbie2o GmaKt1dgzo2whqmqDtz5dLpx0xD9+kFEg71eYOo8xGyxMvqgLz8mPoWBYU7m2x8uQt74IKMSe+qfs013 m5Lt6cIYAXwZdEN1unmW y3h2fh2t6Do2WcLT977opt2G88CSLf6EHQfr9ezUHQZkf9DLzYpZj03alqCWQAtPqTDk0TqtTggPCeO0 HvggEgk+jslxvyHSUxMn Vl70vMGiaAz9uRwq5aHNHvZMwFzmQajekLmAf8CbAqIH10vs2WxxV/oZhhnAIwO1A4lmFPSj9o8HZqNp VYEqfOk3KOiXy5FET3ja sLaClMQ9+9a04kg7+PAdnwWDCuh5QbfnvhhMjVZUA5bLf298SeQTmG0+PV+padum5hzmriVJoSSx1OX5 zASwm8g5sHR7o086GTHE 8SHM/V6/ZGDh/zK+bar1f5plr9oZBx/z0oXzGXKr9adzCAF1D++6dS5c+Hyo7/6dbGOLuDIza2+esSI6 KsCG5cgIJHUgMYU9GrcY 96/Q6eO/K3nAqYEhbiUi9SqxmObJznoSoyVw5OB8WPlmFHijwPrnNggZIgSpPeOGv+PHVOcWFOmTeO/a J+bm/vj+ZnbvJrYd4UJ3 ZDsRj6hd/3iytso3z01mRzd10A90FYA96BO9VmlXz7biQV/Ln/z+g2/3X/cKCwCYylB2w2loW0z66fpy XG/r/rqM9WA91/hA5o8W w69IqTS3doUm1R6YcMfh8om1YHWzAXGvGr/e/AfPhOe6mu7Nk3iPs5pKnGzhDeZJoJ9dFLHjOGJBCKVc Skgo3acIg60aW6eMip1v FiJKUk5qyXS8vDNqXOXo2t3/XcDFJNDX19z7bDxbMjvHnGFk9c7Z+DbGzcBsMr8fxFOa1VTHe6osRYw+ aNCdMWTpUbXXD4i3udsz hUrk8XpB1Vz5xEaeQoea6jhNzRHFbRPMO8XWqZHx8wf0vJNTJQIlVOe04DWGqZCXM3+xAx94Mz4EJGaP Rz8vgk5aNcfYmqqDi2+R DerQ6PSKF016oTBO6XpBnuwLdI7tQtNlk820+0a0lYXfifRjv9g/llK982FBrhFEwpS3Zw3UGkaA7IFY T1mg6HgCRielax4oV8Ou jyf1JXH28SWd614sBKMve7XgazAedg+8A9aQy8Dc9/f/lD17sMRVui6sDpMBGdOfde29PROfdDtrIbHw GkzqcxSIXIcd/5ciEqtc rj1KBYwexa+ua5484HyFO+NWhMeHvbg/v2nNhzRmAESz5v6xi6w+Yfzz6TrIFM9jecINJiaAlOffExoZ OqIuEQI4onEVfUvcyfAu yFGIo0e3rcSqiRGsat9hoMVoup9dmkKXP9lFJvR7Yo0Es2oZlh0e/puRatcWV3JcRIk5+pkrFbe5vZtu NU6DHGIIBstACHcYO1Gx dPLuQFeSTOw54QFlQWkR0lyqXYPq/b2chSFOx6GGxd8whYTv3thdJXDdWrysLLAHuCo1jt4h3ymvXu4M iXv1wFg2vkn8ojhKM+kj 7AKZDXfFNWKDTmm9sx7ImOvdp9VHy3UqFIqdsd/cOWw7KaX1jTm0wt+yh2IGy32K9YtKFFslXO718mjc xTZ0b0r+i4x6ZEdkyeYC 6xgRcLzOWtku0U/kboMm798/4sAVX6twg0oK0caXDNOIC0b+4wGKZhFaNNSMWaCn3izRuga2+RbT2GsC PNAg0H/6jUVvKc6kiVqS Nvau76gvi63nLfciEfKxTyJhgkYisjFy90tMGVh86uQG/7Ytr1v/359+w4WDTlaiAPGL9zLeIGYRrNcP 8Ebz5oBvgj1+4aVAz9Ym 8PmH7eEOAkW1FCKWwMc5uVPlUjEahgjoeu1aFPVkKiNmZR+/J5tkefn6vLK2LSzLWiFhf66VjvOHlNKk m52h4dkNBTyXn/euZOcn QuxxeIhzglZmtjxldK3i0sb8OLzx91/sVhcUFE/jHWJWvaTNo70LmBL0f2+wR8vxIO1C1aAaEEIWAx2o SHnQiwuFgAQBJGWlrZm9 hqQyRJM3BJs4+p1a/UEGYjs7Zd0yx6+YzCFCy6chUf/5tr3Xq9lJjnzvHTXdthKIjoGzasQ8Wv2ps0LL 6joRtcgWf45WLpcKFGgQ EKg9sgRV6GLzaZi8uoYbm6lF16XTgoAzXMF6fOo1s6vADb6kNSWkrUbWZ6zUqi/f/ciFB65ZaDMnx99I Hex9uEC0nx02+aNm+zt7 Yo13xWfORiyBXg/Cl3noQkrN89o4YOz8BXllxbbWuD4yn1+KCZdfFgUKA7fEJa64qiy4HKvxQfz1U84f 81vabz0h86RPXjRLnqv5 VMs84guOe1mxwc8Z/XNN/C+G1lCe500u2kibQrvS9fQc2XCkL0XKbNBEj98h8LR2fN7ak3u+/v6+fv6V z6WBOQiNl0fMw2RktdBz f30vsGidxtZA+sy82fc6TQjEom3TYBelTxRxBAvJczhw8a86PyXc8Fmsrv1L1/Niz4XVApDQ18jmrqR+ 5LYR4Oaxtr9Is8s6BpAd YTN51ASj2uMWsS2kDowG33Jyd1pX7vcO/f4+/pt37rN/OCjhw/6ry395e1oLQRP4CWv7Ftf5/j7+u3Y/ kf+0N07d/r7+jAa4CkJz As3P2RtMxiOq//y5Uvzg+WMbBC06PeKJPBvNkrrjxhws+1d839dyLb9ygcx9qN9VDaCnJ/z7yZPKD593 UKM1Gotppz3xCRLNjARP ulj5cDoA0B60axWnAx95rUm99pWnBRzc/utv6/f/3v5Rx02ojULMG4meL47WdJ1tfIag8jDBCMjT/TyZ Urrx8K2d/Zsf1+/7p27v Fi9zqHHcHSg5Xrm2/VYaUzfJnHiPCVcVKQqQxw0lC/Pa8f2NNkIyJW38GqHmHmSy6thdp/fmvGB5axex xqAOrINoRh73mO5uGF++ snf12/IQl4ZYH+2dStf+U719bNt7RXccqeR24+NeEc46s+qVuwWUvr64wDxozDptaxX6So7dwUDWGwh7 di1zrMDYZ2yj40vHfV9i Bm7qqDC4Ne89QGkjHEwctKpQlTA86PS0scsbFrAqSvTYRON1qkkA/i2kgU+Az0d4l7DxOlVemU6BayRQ pNWUq9f3++w00naenQVj 3YeAqBz12k648SLGFBu72GA7EJH8xrywm9UYiaAiXkG598PZ4uU4VpT/QcO/Zv801QRywMHC/HwwQOLU ZYf3sHKi5Oxd8xx8AcbH FdnpfAPAYAJCydigUkNPN8Zt5SSN6syL/4H9x+wKvMRpKamxr+JN+36+ZThOYiu9o8lc4Fh+O1Hx7gxE 97bAO3Vh5uLqbTjMysMc 32vGeqw5lebsCp9qbVZx1gUvzn7/xtbu61xu47ri/ixRLvjTdiH4bK7pRyYuk72eYIjNXA1UfAzs1OAf Bc97awtiy3SOuDaNjgoq ktmyNsTGFZC7vckRVZGhBg/QKmQrGINSBgs2wUtMIw0a5fqHE0/nfRZDt2fn8oe6K2jOq6DZ5/PuTNnZ 97phsAELn6NKomo9jfXx +fN9/Q5ak5AKOpgIT5gg/Xq5a44YbdUOm52BImI7Sw6vxM+Ih8z+blbj+5mnzc45HDV/d2b7Aywb87aw /lvXPaSdHRQ0c5HlHx0u +Z5SmXf/v2+erwILN7mNgqm/pv3OgZt4NqZpicZ4Zd9U4kR8te0+xJSeHjB1S0DfLvnzuCpD8uBescDT zUTKdKzlOQm3yeBHfoz9 sv5ywjOMlhMQKalvlVmV87vmh9vYZoTYXooxBQsGQsSuTWs2Lug421QwwNh5067q5hVx6JUTf0eSPdah TKq11gsaBw0Z0tK8c+DB NQMrFe/vtUsbt+49iQBnfxRIoqeROQyGARWCnKiAZ5yajgvGP8+ZTWxPwGEf55jtmagITKTEDgDhsD4R vkNzzKtGxavkeY23rgaM 9i3/6wBtoMgpOzYw7+PBd4+Tl0kt08MW3c5mzvGQBYHDAEW0LGYU3QWYB7+aKUDyke7w4/8PHOWVQGSJ IUiEQCIxWKhUFhQOvlZO G9+SHWmXbBKq75dSKZT16iAGryJuBm/z37x/EV+rCrIyH0azlHU+b7oMMjo5PemLM179xzGxo7dYfXiH 0+jgep35siqZFB3783eh GZHbfNRJ1jiX6AiSN6lYKSkmVI99yF310W4a2+/evWqX//+B2ObXMjd6p5cfTfwDydEf7yUewaH7/fN8 mW/jr7BqUJhLILT1ALo/ XYB4taJqad/PyTnCGOoQU3kspMAxAJXtP6naLlJvTYK/wlbVn3owAo5EIQ9eTsP/11dCQlsQLLX4mSUZ LS8t4/GvrBQ1ny5BI7+f lJUcIcO+M6UWbRqGWn9mVBr3lgGN/yyDl7bH13e6nCqZnuhTqtbWde0/Z/EfQZqG9Be39ZI9z2aTRz93 uPHjhczzcKxMHF+0EPII 8EMJHvnl6X9Nd+OZwbl7Qgv3TjmNCXjGs/9/feMeEyMQUwnT2P7C1ZJi8i9pDIzrrQjmzssL5kToUljE Qi9q4yvhu4XJMFzeNlgx /NQMvLo2ljURwWaOtty0+XM74IeOtZ+6P35y0cQCBPxjPInQiiLFup0U24J8Yd128ufeq+6Z/wf4pyB8 A1qKcuId71Qhmen67Th7 WvVujUAXA+/udM38Ijd3YjV502NTWgecyNxv9g399/hT/YM3sEi1+rVr//DzcNFEs6pYMBsRhz3hJ5Fc XtkWTANzNiEqs24yv5lz UwWHz5g4EQ9kHN3+rd1/KlJvbFzJ613eJZjSuceq95QGLToxdYKJvnoDMenYlqGCRpIB/s71DrjkLgt3 2aUHksVffWr7RPIK/lt/ rFRAAMzRJC5Nf3/zr4b+PunyMzMTExIrN+rgJ9LH14vp/iw1DO7Yf+HnsZnSVMLG2Fe/fbMQgDYtmC3G 0+A77p1o72a+Ob1m0k// IBUG6vQYcig2noQ8r46O//mDQD4+vn6+MI9IIVhvbz03w/PGRkZ/NkTTANY7i7j+XiAMdc4qDU/wsEDb ++pkmVXZKURsBn5Xr+Eh kDkTAoBDK4UP2aT3Va8OsUKBvWRx3W8hxq3OuFj7Mkcn3tsrYPl0w9pSm0tsmvaGJg3BxpHGaly8Hhav ffIAODB/hsVBy3dn3KFV n1lxOZ5rBeUNttG/f7gH+4SSRyTrOvRQUAH1uawW9LQ8oSFsYyHTe7vd3de8w/jB9t5RLIC6Y5vdUsMi X90bvkI1Ds/bldAhwIAS EFySZhYc1B7zld9n4NsE8jhkX5hknpktO4Z8NX81DePZNaUJrjb/Pj4+fQ69NuD7Ql4u7K/d3auQbZLB txVQJeqLKUi3koBEKZPN gRnZxfzVpUyV/cwCcXfzejyKw3YUh1CDJVMDWaKHrsjBi2VsbC+/CIqnxcdNqRLa5ye8ApdfpjRyNf6B QAk97O5MkSgcym9+jgq6 b640BJNW6Ekni2ezL9WELl4K56sm0UosoitqnRHwUvTq0+/HbHiLMycbvc0JfFKE9XnTp/fzOt6VXxAi UMlN3x0ben0bR0zzVJry Y9fwG/LsBJ9XuCte5pYjFo81Cjy2aXgfiUGAaULXKUyfB+HQeMcIoW07qXRV1QA22xmD7pgTFFPj0Uht 45hSA7NtGEK1DnWOxdy5 +GHceMNRoPVDoWJ+d2luYg8kEXUw/Hf5Jiof9hz6NE8bb68waVU3xe5ceiEnn8yClJplP4mNhGdJz7v/ 0hAZB96nf9as5tpCfo1v nd89MGbpq3+qwB1GUs7LAlApV7wNnpDPDHtV6aCyJisZ84AJPXeRz1dX75rGCewoxTLRykPqGBXvKdhA AzLk82PmykJgewzA9Cf7 9WWVAyGRx98H2abT16eQanA9NBQVATQ53mzTQtVrPcBuIqSmwZVHHetrANx/Kbknf68KTult8Gs9DCvB cPy9mXhxZsHrY3nSubon i18/s34BQ4NKAvIK+M4bv/xoKEDUcuFDdPCtm3ip0hOIWAQlGzIH4N4QKr0/9dn+MiRABD/3s3YZIA+q GNSoWLFPn3/9/4MJv5qG 2cZthAbCk+Mrp6BwGhaOgv2a7cebtoctX0dy8m+c1UIkjXbw8rGHWupyqMvE4TcXsXC3o7kZJKo0MgQa ZpOQYi84HrnwyMfBYvcO Jib+E210RYrLuryw3ac6v4/+qXAid3Pj81cn14lUTm3d4rfTICV/1cg+GArG9+pX7CyHMN/ruM/dEERA tNbnCjqLnqvJPBeATSat 17yeqC1e+qIz75LggBs7MNx1gQilUWrPo7aIZxEkaSO/rZVQiEO9Leis3cTj44zVqV8PWxt4GoMvi636 EJ4OjQeTmow0yu34OzL6 8FzMwnVTa8vRHV10OlP7t4DPTpmOgXFecQawk44uiCalqdwCVpcGV7NG+id5EV6Z/hougRuR12iZiuse /1yOZuSHY3eFSf0lkv+9 0MTmDQ1HsBx5qsqqU3PnRmfMKMir7ij/JtJ2AzQIBjDM9zbcGUOsz6iTlZhYN0ru/L4ib+hvj6ns57zK 5/mZH9Av/1U67rlYbGTf 9fzItLSDLCLwInSOt3cT3lEcVOFdKDOBpc9KSq1fTGgzqrNsDyd/Vn2DA9rPlBqwA9QrFmeenWBuOvwy qRhZptoEkmH8ZgtQnBoM DEDnh5bbheeuw+srQMJcFDySkOgJOMhn96/ytjFeyVCM73zhRhlnhXEl/+yaNGzZ8/lZs2oApgiDs96x nzkqNHFsbWb+Ftrunft1 t1Up/v27F26+JfuPXuYDzN/BB/1AlR7dx740003mq21zbijit/aIwAI4ZiBt2Crrraf7BUwIsTK0Li9/ mulK3ODGRVEYeQJuehHO UtRNJyzekJSgP1juf3bp7+RMLS2S8j/0HEf0oTd6R9TyqcXdPfsMwus8dkrbHVvnf1E+xfkffYRKBSKi NvLBYj52mXb2+4l7n2cA cgAO8nRomblK44wBoSCQwOLftTObHxrib/Oyc6+uzKk1fLxdf629zIcPedfYJTuZo7jUqw5VAYnTxRRo g6FCOsCZrZJ20fpAIfqi L5ChCaqokp2yjcqEo33nWxyQz44GoZkoTjnnyjtjldobsrsQNGOeLSqEFbfYtZWVYdmdxNjQK6ec70ne gEp64ZGyqYK3jDbtGna4 8DCis0ijuBz07lp7/Hgw4arh6xutBa0OMYfVPab/EtF6ZEyKK7O3p6i6c948BMKGZoy2+fPBw8Z+kHZ5 7u9xjUgBX8SqdXPUWCL6 KK9PRXKhzeRZQY8WMI49lkvd1hl+8p0krZ9RQ93w3xdHdSXr3rSHtN9x4IjEutDgt27a0/oFwatla4mp z8vUFzlyXxsNOLK72WnR ptpn8Pf8JT+zK2dJ8cK/9eThrYgmLIYegP4EhlNFPgW1m+3Xz/e+hG7PgsBaOi/A9lqwn6u4Cdht4tL4 72xrLmwpSLHawAn7XlUR DK33Nfn/1Ub/u396Dz4C3AZcZe0q+WKMKzcksZ44wfzEBFqSCBPrqvg59810ZuP8pA+by789vFFjPkj9 WcVdrG2oZya/+9T9tHnM +YAFHOvDYi47Yrb7gc4o0kmjD+bp5vUqpjMayufZg1MinuWcsYP0My88hM0dZAi8p684pi0/Z7euSt1+ /DrtxM20B9gwzL+2Auvu Yg1FDKE7Iz/iRWAk1wknt1wbgLFJXBvTdS0XiVvAVLu2lqd6e31h5k/AkBiYuLkH3/J6DJD8cqGgTe3A 5BaDQLg5yQMNRzStey// Tkm7Wqgc5eUdO2e08/v2dfGMAOg7u501CYmrFleWB0+pLM0xDSDA4x6JLYAVMXeUEw4VR3JB4009gvWp 7Ls+LNbQVOo3Ko+d/Jvw nLPmQxbGtdcmn5U6c3G1+/b+/wl4lfj77eozobSTWbG+ojzYrBK4Wu1cmOtK4Fbhrv+irZK6ctBjKttz fbg/IUL+Tnwf+7evXXzZ onESg/F18+AitXyu8vCN3YeaONxHyhxCFZeJDttWQ5/hcnMnvsOCLYy8IYzb6RSuRfW9EVcGRXSTwaT4 7Zt+KlOW1Fg60dqBsdnE VBT9Xbqi26NNZTQ/5Xvf4sXzm1nWDYa5S43vcYNuwbf+JqWskjf4yXDy3NXmug8LpOqkRtA19/ggPwRD RDgNsx2miPB0GvC4pPTR Tq+TlUwT6qhKCDQtMgurARI5haIlbbZv5EpiaRlbzDCKoJQVBpgsH/BjEs5OiJ5Io+eWwVWYwvevD18s 66p5oaYm3vU8bjo5Hrr7 eExf+ONqvInNl9gUcugngAVxkO6eUPA0FPcI8rAPMz1neDi2BdWtyNFQEtzt3UVcBwSlRQhNDajVbBq2 Fce3wiQ2uJxwRW6d5SG4 58W7WU0hoVUhz4/AICnp+gaqqxS85OHdTvM/gfHDUDo2zp1l/a5T209doSS+9YatUw5G/8OeCtU3bwsC QJsRJOlypWbtgk7n16iR vKXou711pIXz7VR3ywHxyEUcm1ATJCjDzqt/T1tFpyL9nrAhzKExn/lAbD21kVT7C9wkdCyQhueUGyRr 9Tt3RXfMaFF1ZcUiV33T l467c1f713n8G8a4qNgB5OgR8I1axgrWhpstJMyvKHIvPQ63QbmMlpe2q43Y5i6RFOaLa7WWBtV5tupw 2M9wza0JUDB977kz7NoR mVxIAaKmYQjZPGzCdJs5i8hlwAFEbVFSl8PHRPvzb0Szz/wfNe9IOUtVvu+fetW/uc0Ybid6ALK1h1u0 ipUMkGSYj1EGgvfIreQk pMIBbemxebKCrTw3j9apzzxxQqoCOj6ZZq/vU6yB2m+NY8QfszJqqUFqfK1IvyC5qZmRGGhKw74OjuGh W6zhj3ytzuMHz7SWEnVx u99aHtTMwtfro310/lkQJYWm1uQQwwe48PgHeKvNhmp3aBntyCAOp6h3l69MCZskKcBGJxWf54R4ZSo0 fMscr6mgr0IaQ69Hk1l6 +margret+VPn03edlYdl1kr7C8qZGdyPmZSsfMnXG1o/ontGKQk22PrWg99gX0f3B2+zLIv0jnuw5bauhOF+O O2fq5fu0RhWxN9Wvt9mJ y733Zyt3ashaAsqtx993hlwqp8xn+gtSExM/V8e47iY95OMi/gR8/xDAKOdhnDJaGbp3HnnX3xha/CoU WvWrlkjFosDAgNMfppW4 V0kTGRrFjBIsWpaZ04eaOVtqw1meXFn7Mr2Xj36ct/64uKXM92TiXOWYBvN44og/932k4LYTo9rg2wxu 2zadGDf/uVLl5k+XQEAs TGx58+MWNTEex68X9OXUoV0GJom7+8kOPfycSw4CKHocpbWFwLD3Vo0Rj7ng6j79SYg6/9ISUlRKpUMw 5laHmPBgVVAOZ7tVgxs6 WYPCQk5eGLH2/Bjx9PiLu6RsZo4L/v5s+b8RTf0I+c8H8gFoAa3h5wOKgQNqCesgL8/f/t62xJOk9ql0 muJ5vFYxpjTZTWrTnRjO tKUdmtK8990u+6cOVqNtk/hhbHk8K2x0CwvhHyiKSG+PQRbhroDyjmGcpjox5VlJRBV7kxKoKwUJT46X K5S+vvQWclwEo6Ses3+T bxAKKBIUqVSRT9+jYXlrvOJtt8JeBEvVXgw7e3m/GcakXPKo8srqz+7ju/QCZEzB98KbNRGKOuE8w24V i5sfbtkjoVzZYM5EYb5R eHemjSquGirFUTcg7N/5x1h62IGUdKkDjVM4mdX02+rv5rp7xe09Vkq7JGWkYthhWXFex5oUbgcCcmpl Ww6qLLDBJPADptTPW7Fn bSni6cpH7IhqG2qBryiiRyr55vwyvl39ChLlCiD5n+HUWVIsPnydS3pU+GfRldKeRLVagaReJ24NqLlp BTmlbM2uSsKe6mz1vivT ay6ZlPMBQeGnZcybm2CurDfr+zwGL6ZC7bk3KLlFC1lDFWNjz2VcrUbGPXJSIC03gk4634kavpQByv/7 L1kp91yK/j5+sEAn2hbt /PFaZ2yF/O2SzPu4+jQj7YhoRB560+fP3/15S1x62a5eXl6SuQHmL120/OAi2r6l4n1Ww0XxaJ7tmlw7 OfVJ6fUehHn3ff3lDBDS s6d/jGAw6oXRWyGB+DKImGkTlBmIIbe7mFB+/ygXvCASAUXUa906tkFA1fXZuCn1Q8+bwR4X5I7vVFpq dVgkx273dfde6n+3L2bX 70r3nUAWQXFefCOJmHhDg3fa/eslCwMCAmJKgtNE1jVR4WXCN0bXa1hbQYOxEjRNr+/Rf2eItUvfJsh5 mQar8FdlBEsi4qowaj5A SypCGbYElZrvX6ljisx/+u301datk6wg9/KSj5VPZHX2t7qyTVTWh8wumxiRHOZK/uXbm6eBQq0ZAbSU F2IzVTBcC/+/vpQP5130 KJf8mbROm+8NK0v9s05e+/M89gi7Xzfl3qcWLMlktnsN6DXB3+u+YJAhZuMS4Byygmso7z4TAbVgEdXu AzkixMnGdWCbDPBv6F0Z NqJ2Q35Esx03EX2w3loZjA66XC3r+2ipKiSDMWrADQFAuz0Ae9KKySChvCwcS//5vEyz1GXrZAYXUZg4 s2xevFjB0JD5Kj125f77 6RzMI7B33lTtxBlJP6RPGD2GWo3k10wuulRSSy9/0bOh5im8MN7iwm9tRSnmkbDQqYtC8+mBFxZykS4o niIpuqtu5drKGIJ/4ED/ 6mPjLAs++D+x7uWh8Q6bdRChTgRUGCURDW8XQzvMZC19yPj70LHFfZCDpvv2r7Q0vlapewnk5Ejv6Tc1 2MvG3hMtcHhwWixOi9BG UYdA12wYwz53aZNXBLrtFyjaXp2HhLh2ap/4rMf6RLJy2O9uyVg4LqO81NVOLzkoCvyAJhlEPqD17uLM MKVEB9/4BOIf1Cr0+Agk 8oQQkajQa/Nlp2vhGODHd7yasdWiHtg4dmxja2QiZrV1+zjD9rdnPcWfXiwwbG1+wcAj8EbuNrzFWo54 oWLd+2fZxfCZjYE8xhPp 4SnIvOxjpr756JSXtk/VMZHFHppdNBF6DL2YQaKy5PymQcJfrg8fDdu+cJgMJh/A//Y+KeVg0T0teJUw mAwpQassDAYTKkBKywMB sMieNoPo8FYBhXVujFmnWsibLIOOCdCZqsUStFcgZlQo6KLFnUYdzHnkNsfgPPWJKmTQlpMDpZynDbPz 8GUGrDCwmAwpQassDAYT AqSBqpEXkEulZtUe2HFTzGEiiBpaIydbEODHEgJCitTCnElgVcTu8QFTuMO+zv7aXxWiYMrXw/++OOnz muv0i9rWvs7i84e8+joK BKJ+oiawzMSaq0tSz/e0x46vOPZ3mb6C8gDgvRrUgN2Ylt99fg5qkt682mp2v6aRx4THWIq209CpzQEY jDaHhRl8LAB2469gbjku 5DSOV3dm1/Q5ZLf5stoZebVe29VX0+1ffRfJJbBAFmZgkkz8l3tFiMjevy/LRam68Xutnz+qR4+fPj/z OjSpcuuXbs+zt9Srm9vW WKEaZe/3p915tht//1dbO0EAHVEKILZCYoaV3wpceKpEH6FbZdMXB5jAzIXW7MD7lGlU8DGq6776o/+o S5ujuYOb493Jrwp6hGHC E+ePCkk/tOywqGYxo8vDEeXjWVHqWf2tCvBMyQfSK1xCs7EBITF5rLAj5mXhy7OB4sXoSmVrhXDo1jBN Ol082Poi6M9/ZkzVSqV5 b5Dj8QQUKIksz4/7VaRi76e+RE1P6QF/jaDCLk4HVKQ6YWuEkzb+lQepRDV8xmzIKRLlLAkiyX21wTfF SW+CyISODt82mZ6eki50 40tJ0RkNM9kWa8vgnrHNuJgfGAGF24sCrpEgkrz84qGt4h+9wXGlhlvIhqKcj05+hxz65SQfhcaAidPU y8pPPLH0Yne0Op6QBlmC v/83646G3B//v179+4fIBEcUat714qScCrR53whEam0roGdhRd3+R9l6oi9myfTcIZ/xVaRpMFt0iC42 fKNRfhZ60WPIi+7bt26A gLqvXNnJ02QOXcNRBvLlon5nM/t9YYAEMMf3fNWClznC6nDvQjswkGKnQjSe3d0jKxoCj6Bae6Wrj6j6 rgBJKOGj9hoByW151/z2 /kCrCch84t38tp/KsjrH1f477AOGky/AErk5hu0A/Pbz58/ClH8mhreLL1mmPeDcLNjySuyrPKSycK08 JuzYzqdnJf7anXAZdng8 MGwFFkuSIpXAQaOiIPXXTjTJKokixkMGj7rIAFrp7EOjHza/TmonHDkWJEWnDlPbcEs0if7lbKJXSSNI FlZWQAwc+bMpKSkwhWWB DzrMuRQ7ZLU59UlE5dqV8Gt5YzvSX77LHM6Bb81pZa03nIGhpJrw0bh1gvDEPvKMKXKygv+11A3ivw0x 9mhATGu1NoxEhTvYeLhu PztjuHDh/AhCKeRQTOr7ukP2ExMigMLb1qUqTUZKXs6btTdRISZZJ5qmtVtTBrVuE29Go7i/Mgr9gQtM 3dFZbFDY420srUsqqhtq NJB7/oKPfOmBekE6Tu1YssybXc8fLbw5iVqnZxRfr5uDYx9+/ciT1MtGuWf7PohrIPcYPEHFEblWo4Pg a7Gu0XW69GHjvFzwXPo4 64ajzLqASPL9EN7ZKVEt5KhjlAw5w+tp0pv6b3dOsUVmSrDouCqxb//ivmaXVbXHTFiVx0GtBj8bh7Ef Tt/++48IKvKPknP0yBDK 0DWWjGAJqxXW924b55Zz5CnSPhwsJnkr1k9EzQwtY5/v/xB6lJ345aI3O+Q2wGJz5Vpqj28246TEr3z4 VktnD7KMEOIZo4HBTrRS Fl+saeaAnTMPFhNQmnmWlNrb2cZOI9U5TUzj2WHdOkSeCZQB3xF5+YQk86s7e58aiVkmipx66447fCBr QAAc+bMsThYUAtLIpFYH SusXr26+GbjcyqNfsFcJeMJnlOfAa6DIIh6bheahpYgJtLaXB2oozrZC0bpJ9cqcafNYJ9cabD2DFdc6 Llz+YtUoUKF/NR03EJvD KNW55KuDdVTI7wEhP7f6VOwA0Wey0f20UnHFdCs5SqpAeXJqUoIjS/h6I3JJdoIxMxFXg4e2vy/+uqrn JycQhJ5+fJlMbNDCFnkC FWadmEUOk32Nb4udkCb8L1HkHIw8heQmVwoIobid9+DVoQO3fd9+vqacjRhNYUaNWoAAG8+H5InCnwFr SIRYpZxj3PpzaCJjGwh6 CRlGLWa9rs072KxJ+4vfDCTq276VVfOM/1m5kXfA8251127r+/rAQd5WTRDdbFqei9ERENAXFIluqhLI OEWwx5wqKwuEj444pkab Nm3DZ0gNt1nRfd4UrztCnUNkN576EaofXckzEmvZ19uNZ2ZCpYyEIEdo818w6DbznISNrGw894/++23c tTHNMaHQHGyAuboGN0o1 yxGJlrwE53AH6UtBDVb7Dk7i+l8ld6g1pmLs9PzJj65JrHy+tLf0L4U1usSUTc5BRO9qrJQ2+Uy4TmvC zAKoSl9IzKMSbGBKa04v jMaLgah3HZmMlj5owd6SdR41N/0pyydREVzjVaj0isnaZXZ9xjdGNxCE85qWNkfMFX9E1F8GJWgAFDbq fT9CPmbuW/SokuIEKpfv q5G9rTHa1pPTAhx+s9H4W+SiQHvZtSGIw8rzjTTwsr2Fg2t3vUt7lq+chBfe7KQCXQKku7y6z9n7Kkc6 ad76iNlakW/ERQUZApat IfQV3f1l2r+49atW/pKSVk8cPyLe2UVskprEtHONhYFQwJ5jGuP27/Epc1Mxyvb9S1JjeieOtT2x7oI/ Cvuuc5NvO63d+ePWJASx 3ksjXus4lpLgHKU0Hg0waSs142OoKkKN2l0qPSwWt0JHpCc6wB70azRDew9bg7bUhA8lda9cjHBLAOJy /ppv0v500+/FYlEPj4+j u7X4huZ59hyS9+syc/z58+vXLlichMHgJ9++nib9hn4yny+/d4z992yrEn1KkwYmhy7+/knSaYwVW8qI DwOeXlej9C8Nz2ppWz4i xumzwMvAa6a4ehGcMWDB6hu2Ud1mKI/sVFHyS852t1+/nEaasVdQwpdTn1llbJcapJYYv1t0n98snYJN O3QNeFMsIbtUSopdfGnU hbkVJNJNlSGoKo2D32hlzXWadJxmXBq4cx//vrr/EHqbV9YwyXt9vgB4QgnVgRAJdCanmdqdFWy1dagO oEWSutwFAUK2UsLBU0Dh CHlB59dit7pHPWZmn92ZFUFUz5sk61vtWlRgRpiK+zRqSgKDa34qWEt3K/LbjLdTdg8WzDFoCfRRvnEg LLpsZcYu3BKHlHRpdFsf LygrUABJFtVQlaJExBcuZkRh2IQPsOOycHsqAh/A55RS/w1o2ZZVEJHQNeMRoAcGeIA></span>
</div>
<strong>Patient Name</strong>: <span class=clinicalNoteMacroWysiwyg id=[id number] macroname=PatientName spantype="macro title=#PatientName>ISAIAH MACIEL</span>
<strong>MRN</strong>: <span class=clinicalNoteMacroWysiwyg id=[id number] macroname=PatientMRN spantype=macro title=#PatientMRN&qu ot;>[id number]</span>
<strong>Date Of </strong>: <span class=&quo t;clinicalNoteMacrTaysestefania id=[id number] [...] which might be better tolerated</li></ol>
<span style=font-size:12px><span style=font-family:Tombstone,Helvetica,sans-serif></span></span>
<span class=clinicalNoteSectionVisible id=[id number] internalbreaksection=false originalname=Med Onc Advanced Care Planning recognizeconcepts=true spantype=section suppressempty="false>Advanced Care Planning</span>
Not discussed at this visit.
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
<span class=clinicalNoteMacroWysiwyg id=[id number] macroname=PatientPainScale parameters=LookBackDays:0,ValueIfN ull:Not recorded on today spantype=macro title=#PatientPainScale(LookBackDay s:0,ValueIfNull:Not recorded on today's visit)>0</span>
<span class=& quot;clinicalNoteSectionVisible id=[id number] internalbreaksection=false originalname=Pain Plan This Visit recognizeconcepts=true spantype=section suppressempty=false>Pain Plan on Today's Visit</span>
<span class=clinicalNotAspirus [facility] Hospitalysiw id=[id number]" macroname=PatientPainCarePlan parameters=LookBackDays:0,ShowComments:Yes,ValueIfNull:No pain plan indicated for today spantype=macro title=#PatientPainC arePlan(LookBackDays:0,ShowComments:Yes,ValueIfNull:No pain plan indicated for today's visit)">No pain plan indicated for today's visit</span>
<span class=clinicalNoteSectionVisible id=[id number] internalbreaksection=false" originalname=Smoking Status recognizeconcepts=true spantype=section suppressempty=false>Smoking Status</span>
<span class="clinicalNotDay[facility] HospitaloWysiwyg id=[id number] macroname=PatientSmokingStatus parameters=ValueIfNull:Not recorded spantype=macro title=&quo t;#PatientSmokingStatus(ValueIfNull:Not recorded)>Smoking Tobacco : Never smoker; Smokeless Tobacco : none found; Vaping : none found</span>
<hr><span class=clinicalNoteSectionVisible id=[id number] internalbreaksection=false originalname=Depression recognizeconcepts=true spantype=section suppressempty=false>Depression Screening Tool Status</span>
<span class=clinicalNotM[facility] Oste[facility] CliniccroWysiwyg id=[id number] macroname="DepressionStatus parameters=ValueIfNull:Not screened on today spantype=macro title=#DepressionStatus(ValueIfNull:Not screened on today's visit.)>Was screened; Outcome positive: No; Screening Date: 06/18/2025; Screening Tool: MD-PHQ2; Total depression score: 0</span>

<span class=clinicalNoteSectionVisibl e id=[id number] internalbreaksection=false originalname =History of Present Illness recognizeconcepts=true spantype=section" suppressempty=false>History of Present Illness</span>
<span style=font- size:12px><span style=font-family:Tombstone,Helvetica,sans-serif><ol> <li>Patient reported that she has been anemic [...] has heavy bleeding. 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
</li> <li>GERD
</li> <li>IPMN
</li></ol>
<span style=font-size:12px><span style=font-family:Tombstone,Helvetica,sans-serif></span></span>
<span class=clinicalNoteSectionVisible id=[id number] internalbreaksection=false originalname=Medications recognizeconcepts=true spantype=section [...] History</span>
{ }

<span style=font- size:12px><span style=f ont-family:Tombstone,Helvetica,sans-serif></span></span>
<span class=&q uot;clinicalNoteSectionVisible id=[id number] internalbreaksection="false originalname=Social History recognizeconcepts=true spantype="section suppressempty=false>Social History</span>
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

<span style=font-size:12px><span style=font-family:Tombstone,Helvetica,sans-serif></span></span><span cl ass=clinicalNoteSectionVisible id=[id number] internalbreaksec tion=false originalname=Vital Signs [...] suppressempty=false>Performance Status ECOG or Karnofsky</span>
ECOG: <span class=clinicalNotI Am Smart TechnologymattioWysiwyg id=&quot ;[id number] macroname=ECOGStatus parameters=ValueIfNull:Not santhosh rded spantype=macro [...] originalname=Genetics/Molecular/Biomarkers recognizeconcepts=true span type=section suppressempty=false>Genetics/Molecular/Biomarkers</span&g t;
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
<span class=clinicalNoteSectionInvisible id=[id number] internalbreaksection=false originalname=Additional Labs, Imaging and Other Studies" recognizeconcepts=true spantype=section suppressempty=true>Additional Labs, Imaging, and Other Studies</span>

<span class= clinicalNoteSectionVisible id=[id number] internalbreaksection= false originalname=Laboratory Results recognizeconcepts=true spantype= section suppressempty=false>Lab Results</span>
<span cl ass=clinicalNotM[facility] CliniccroWysiwyg id=[id number] macroname=Recen tLabResultsTable parameters=OptionalFlowsheetCategory:CBC,Label:CBC spantype="macro title=#RecentLabResultsTable(OptionalFlowsheetCategory:CBC,Label:CBC)>CB C<table [...]
<span class=clinicalNoteMacroWysiwyg id=[id number] mac roname=RecentLabResultsTable parameters=OptionalFlowsheetCategory:Chemistries,Label:Chemistries spantype=macro title=#RecentLabResultsTable(OptionalRand[facility] ategory:Chemistries,Label:Chemistries)>Chemistries<table border=1 style=&quo t;width:100%> <tbody> <tr> <th [...]
</td> <td>
</td> <td>113.6</td> </tr> </tbody></table></span>
<span [facility]NoteMacroW[facility] id=[id number] macroname =RecentLabResultsTable parameters=OptionalFlowsheetCategory:Tumor Markers,Label:Tumor Markers spantype=macro title=#RecentLabResultsTable(OptionalFlowsheetCategory:Tumor Markers,Label:Tumor Markers)></span>
<span [facility]=clinicalNoteMacroW[facility] id=[id number] macroname=RecentLabResultsTable" parameters=OptionalFlowsheetCategory:Immunochemistries spantype=macro title=#RecentLabResultsTable(OptionalFlowsheetCategory:Immunochemistries)>&nbs p; </span>
<span class=clinicalNoteMacryspella [facility] id=&qu ot;macro_[id number] macroname=RecentLabResultsTable parameters=Optiona lFlowsheetCategory:AnemiaLabs spantype=macro [...] style=text-align:center><span class=clinicalNoteMacroWysiwyg id=[id number] macroname=&quo t;PracticeLetterhead spantype=macro title=#PracticeLetterhead><img src=data:image/png;base64,fTFMGi9POkcQBSGBCAjIMdZEKJTGBQHvKYOWMFN7Ns+UAAAACXBIW FNLLX6IQIGNj FYUHn1yQWKMlnbLPWSCUUu6X02iRxRki7KcZcjaoHMDELWRCY35qPSqw4O4LRNfN5gkONFyd98yYVknH TQDCJ3gYHPGDZbjIFgmP YO1NcUxpcitAMCcPs3kXEe8kH0dbXR9XNE4fSpyzop3EVQjNB3xPBhdzzgfAMLhJaFwuKw7nYO4xm0dL AOaRsKhWI9ULSBfhxVmX h6cBKJsYSHeBweeRHS0TZU3HVQ7GIMwWHUkZsE2ObKuKYXuPgSgVwSaXCOfYVJxAMFyIrQ8obNeGjWBR cQ7dRiufvdiBHD1Miv0d SF4Vg70o3xpzcInn2MnAkU2FWgwNHWnKgUtwwHgOET9ohFpnE8arpHvIdT8adPaJoMer0VmfEQ6aU5lX QZoEkexBk14rK0xJgB7j Kwtlxs3pVB6Lmj6pFL0Qf0vqg8zOM3iYG2ii70lmDDeKbUoML9fXRupmD7tOfQcGGLndCAwZs5moTHxh Y0actoeCBEnYPtecIBdv HSeNY4pLgUmdV3qxdI9hXazrT6hiC0pTWAyuKNcGc5lwdFlSQGbCxUzN07dZ4Lez8Cxm7gozK9eLlZiM zX5cQnfqyu0hRSQNZ7fz OW1wRxyS85pIdTqs4WsDkKbwN59ZNRbWD0nJ66mRdZysQ1lahD8g4CRltP9Lcd4xIN7Lf0iiv8uDQ2dT P0vj47onPOiCkVlVD6lC TfkQR0GLMHnrZWqTOH1DP01HjGfrQ7kXaEeUUA2r4ZTz61sAAAIGU4uKZJWlO49z5Jlm5ZeRcCiTEEkV PUyhV92k6ZwPGCyhY7hM vGbEDT6WWCxfAB6QpZkAaAcNPDsRuzXUGA4Euj7CzLeDXO9ANXhHJjtbFlGu3LbVqyFGPJlMDTdOTOaN ZHbKYW9IXIhLsFmOTA7Q mJvYsP6mOT0YMQ5ENXhsIKNLHSrPREnMXWvLVUnTCF7RTRfKjTlFPJ4QtLfQhEjUzxtj3BxQZQ5ZbywI FlmS3YnXmRmpTgmtZ9ab J7dIxXtpC0aQV0vPL3xHlXglY9sOF58GP6yoBZlW5SFTN3blT5yUtyvIXj9GHBiAkCzTE0fYFXsHAH3I mklAIq3MO93GcP6WSBdJ sTyOXIeWAcdmM6SXfYfI4KnAH99ZVK6CnzerT0inEZ2NCPeIxLfYLKcJireGt56MWS5IQj7UgpdFESmV aPtY8N7YXCwRiW0tZJTQ McPzlrxlW1fuMCaK9XpJL84SOT5AsxqdR8qmQZ5UFNvWyNfPAYuVqjuKa31NAV8KWp3BwlqUPMbVyOcS 8M8CDMzKv4pDCXuu0Sqi 4datSmNp5M1wDNqdWKaF8XcbF5kgd0qYSHnBfmYFWw+JBmyCZB6wFy+kV0hCaTfBUx4WpC8I0X7LMGjT GDmEGR4ZIQkLfxJUTS5V gDWQsDpYBaajtKnMpehYsY6P8XmRhtHVAa+WUihjShzyR7zyW9fMzMpD2TaIF60XX1nGJM6o3HcPvB5w A1iSA90EStkfL9vwT3cY HJkZjpTZXE+VOpeYXJ2cTqdn1PMlmP3RJF4rZ1wGQEyfiUscADuUtFdzPO7nFlphhE2DM5iZYhOWLL5k QKjhVtmBymcXpKwZZH5L QM5ZFDuWCLmQH63TCp7SVUnPMxjJQHqQRM5IaInt7XBguX4w0aong4nOeVhYv4vPP5jB1UbXNjjNRrdL D0tDzjoDDBjo5MDvuW8m 71mfPipgzGVZ3PkcN3fNHUcGjRlFBhnyS8xgR0cPNKsThBgVE1mN1blfN0qhWiiTr2hXF1jBPR8W2CfR bK9K8evbE5URmart6Dlm nk+IAheppSfRyDgo2AnkDL1kC0xOqL8J0WePcuEHTM+XKgyeCn1wBMeLFRiTrV9D2khGUXeTUJzAN2cS SJyIj8+xgJ0NRFMMeMTR EFUeJztnXVgFEcXwN/K+oU8iSJ1TQCblgPWAc/fDCYftSsnUIKvYtdyzw9EKPhiBNOlOGkwO7om/HZ3v u8QqahsDwZKxiW/uz92d 97Izu6+tTxfMcNyRTMaXHjcOEEsnJw3ZWeBHiAtdHPcSVoFqVBQhXPlHBooUEnyTQYGzsUDP2JKeCbet kHqUYOCeRBsJFexyS2aZ mD+L2ERlSj/briMtGiD3oKBodVKk6sRME2dlq75RKdwnKTHh/taxD0bUI0KVfDh1diZDb8v4kb3JBMlV BZJQwAAvlJsttFGfo4h/ bFmJlAvVKkXGOE7nZiH25s2r+xpoPyIU3H0DMz4ZmVX7uMZpz2RQGOjZFCAnBePeKqL4nmUZfqfTax9z OOTPcit1qSPEGitCg8I6 7HIPc21G7XDypsHqr2w19cpVtFojyIJ3yIFTASNTd1YVwPiGPeXvEYLx+LEEumob7+Z+wXJTL4jQCcQL qnUe8Sr+eHkU2Zvn1VBv 3zd+8ef/ArD1RmJqXEfkzTGUFYoPVCTDLPcitp61/oLf/5BkMSEiRPH//RBcIWaY8fCXaryulz+9bpXj +1rvPcjAl5e61J5DpON7 4HHMXTEgWzfCKz7uSpENXb2vyS3hT85ws5HwzJ4C9MGM/MvaDgg46//U41mBBqAgR0O9ywSttIcyxeSE NJts6slnc44xewMHr899 qS/v/5rDVjsptWCVBhfUAJvZE5Bmk6vPMy0obIsxHfutf7tygOrpR+/v7//tULhpy4hRI+48+oQv5bit 7MUtrd7qZxsK+zetnvJn EaNm/ygePsfRrQDdmrhWwnOGAThb3jCpI4TSlQ2/KEVOh3E+e7L43PVRzZoXflLy0GPj1ttmeR5HeNBL TAYDAYDQRAkSRIAHMdxC Zj7BHnORrjGIb8YI5sUQ10dRZUl3bARs/ephKOtSqrgyA7WCds3nASlcfj+bieJ3GkJXBaVDQGvIHggC L1JNlCLWkLQMfjcX4ELj If2n+3EMf9+lJoY6mint46mvGIffg8So2Xs7InXmkqXm5Lj96M/epIaDk2jZPccSNrpiHd4/5nalr4Ss Seq4fLd+7GydeJXL6kpT pOkKYNWm/+RBdfBWI8zbz62/+G6T3sWom4ZCZI4IVgnTuWlx06Vv0N8pbEJXqOPzwc3+ArBPf15kbxqE piyJgHFUCQcWpm7Cvy3z buXSIVg/s1jlZB8N2ofo7807cULMngHQAgNJx5smfl4xs86apHNcXjgSLWgDVRMW0QkN0uR0BcdvWuWk SenMIXOhPVBPhAqJ4iup 2DZcVum6zW3pODdPqy6wvWd5VV0w709jmUB7VhpkAb8rZy33AK2zp62j+Jq4MHiy/9+ErY51gu56n275 h4Hx7LnaVStb0/fth1/e Ly2tT14kTkcTTwVPajnKVkA+/o0iGv4tlugh4pMvdXZXmvmrqdMyDbU9qsfpcE3KLnzxUDAZXl5aAApD bYMykpbbKKKhMRl1VmCR +GP+o4e6+jn5oBQHxqzxPoJyaN0fD9tAk0Ecdy27mhFcwzXh3lE5Qb5bpCq7J0sKi2bmIiCavIm0O27l zaNR2PZSHCWfsjuCDNf7 XzLeFUoW+7SxYsFicXHx/h2qGfb8JiqPMesIw3iBSm52hnS8fjYwmwYWtbIMeds94FgovqpXXFtShywR K1KuXNpBWi755YIMRapb 57O8VMgDgV5elJLd6g0n3Fa5et4KvvA+W+AFRYGIYS+GTmqnI+wj4enxQ8Lct+N2CfQIxLE1LFOkgjOi Y7VLvA4cKwDx4+nt5u9Q 2ngbC8dc1SCgZSsLmlk193kD+pMctomWcSXyzS20KghMd6zVDshsDfR+a+Mc9xXAHEgPqz7ivuUkfZgX x439N6TlPMlPKzhnCTpd w1axQ8Tif1sFUiYf1oZJHVZMsWKqCs4SETqKrBBhVf887+HRz9+ZGGYVk7kC6HK7cz2MmMiWOFk0J7J1 64UDraJ8W87S1JIFQWDO zETDrK58LLJS77zjquV4nmVscaYqXGyXqKcv54mmu5jcmsTcJ10NsD3JgbAcc2Ccz5kZhPw9y6dn6zeC A5dAQN35egSq2rHTti1W uzqteKfFOY/AYQCQXh16Qwxe88qp30InXUAyE7aXVnW7pvrD/4gvV4/y40gRUBXMs9Bd6KpO+9Iq1FH/ 9O38MApYFBr0vpIPNjdp 783r1/nj1i/APFCLUdPrJzrLKPLlUBm1NRni3Zcz20UnV/R/MLBCgsDqSmpDMPUq1+zTNlt5Wm11yFaK ycIxsGFCme7l7lK+/Vfu ClUxdz0i8f1UzEZfIcwIaxLPv3UXELzEg9x2SW1/kilf73mG6+8UBWJXeT4lSWqdRFWa6dJNhc8hzHUM lCTnK5e8SU6YQBpLKG26 DSkSZtAhmpRiOXDVJtjOq01Rj6+/lVj6yIKzha5asnlaSVcjl3rm86YpG9CDx6+0Zzq817LYaRswerZS KFGI+E6OMSROXTaQfDYc UrQBWqr5PGFo8sSZcd2t6d2aRn8jXebJJRunLTKvwm9fq62ThioTp9jci4bixy7qZwwPGtxaZztDtfCh z9xfWD+vWCFhQGKokiSt HdwBACTHzFB/ZKxLkVL4va+dfVGS4uqkp2KWqmitHiGhrWILSykSIaV0KNj0nFK4ySVktEskgwO7KIEI ARAAAGERqPRaNSqPGWeU yfDCKK2jsYjJFeVaQMZgqvTydEU7j8N6zx+0CeSEZv9kXZhfhRi7LAtnBevm7xHyUEyEwaOsG/wRYMVF gu7RblaFqxCdMSmb6NpV 75y+cXxi7sxZn7pBSvasI5Znk1k7rSuHsyQLZt4MltyySsOxynvggNcXpXeCwGOZCsmrro7ojk23kzP9 7saCAZJT8Zwrb9LdJkxT +4/oCyiWkaj1Kh7w43nWzsn0jkJKZDLoIJDxBeURJNHoSYs/KQ4lIm2kbMDJgvbWQOMj3rJYI5OLKmrO 0+jWc2t4I2vq0Wpkdqba 8PGje/ooFfccJTfb8xESdujkZrql/AIKl/Bf+X7jZWcLGHaXDCH40c6F3OrcZ20v/y5e+P5Vn7eI+rnI 74dyxRXUO8x2z644YnLb pPIGCXEfihtVnNg9bhi8ts47RGin3utKijHPfZ6nFTX4nfRXPKAkDGbfrtDiEkRI86+vhzLpqalxyckb t2y5fD+/S/jXpbxKtOle /ijUy5wDGps1WyjY4iQfceqqPbKREzd1at9YH0/DP9RF6tL1/IRMPlHoEEKWPd7XPGY435bRKt14dGkZ 5bCfcuWdDtXrsFXunW/U z36/N9eha71714/f/ZsyJmzi+sTS106zsa57JhUFe3x5ZrXoGvXhguB9CugVww/xmI9KBBLAB+io8t6+ nQw9nLoqXdvjuiA4gcmw 84C6wad5L1++idXP3kQ3yU9EUYSGJ7LpHP1wq4PLnTVoHHMxWdI/xbJOnruZ2i+bq8NROs09ALdeqQhL gpcHZymTZuBEGIRQghl5 OkUPUtao7fwM4o1OrqlJt5er/cr+/r61ISYTNf/TovKyRRb24/SRH6bT9T6qyWCOth595USEcuWC6aQZ THuIYGvZ78DiMEvnT9dA vu5i+kbbttw6kzIo6bH8lTH6g8HijqKEM1GudkrVLcISpe0yMynt1YyzcmC0+grfjZYnxIQSsE9Cyu23 tCl8+0zd4Fs0GUp3fQAI K6HZ5uplr5rQI8TCAKPZzHwHDHEssfXKfEePHOwsOysHe5fqJvWpg48yfprCCdSNCOKfNOaIqzWCP9WY /byQCcyk1RGb8yRkh8Q5 QxrIuj8V60a8w1mM/DxISMCufSxUak9ZIh87HqFkzpCtDlo9gz0t4Ku8ryOrGvNWjcXlj6oDwd2eCX9G i531arLdi78aFtOeOn9z ZkvFjxI/OVy/441cy92pEasrmidCt2TxblWR2yp897LkVorXDH/P8BzUPJsheu3xb1fhcOWE/62fauLm 1xC08lAu/0NRtbAwuxFC ajR168fFTwOZ7zNVhkli0E1B1MYSP5nSu8Fq8iW5Ni7oyA921aQk8fIOVDyez6hJCiGuuFfjZ+UWzdvD s9vLJa49meh+gaP7kiH2 b6jGfbiC8f6LCYBHEAq/xMosZPQKzMTg8z5a1aavQrMe2csIANug8B+4l7Tl4DNQY4Ndfafw8NfhTxh8 SiyFUAC+31R2JXVpTPbO fgpFLVoYqqDOmuX1YbYm2wgAUG3jaSmEQHEVnEgdJ+VzGzel4yAmvgFeufio+3JfqfIYSx2Gzjq+NbV0 TjOm2nLfBLQ/wsEZPyrV 1hi4XO0cexArN6PTJ8yQeNs0G//ADE5lfKWDkolzpqhkAttv6PuNdkADGEsTTQaoWtMhNETGXg4HmAoa Mjl74B7eM8QPeBFs9gZt d+1wyXcZrP6pKcjzwUjS0rVvZJV1DuXXlGoJqMIb1LNa4Ie7hcirnaDYDcZJ0Bw5XZlTLeNCts1D6WTY 01Obt2+D2iByPL5Lh6gS /udkFETV1nk562mLOk2bKjWaKqnMLNEXaLX5Kk3Xh4+ObQ9SwtUu1RTsDNf93e4T8cf8zm48q0CVp077 5QNJfyqe2UB8xwQmo+Xv 8u6LjJ06zC+F3UcLNtGDLS7PcxeqjRkcdPxK+8RGYgpuKkNVRNish7+Gcr2SXKUNGs6IfL29v/3BK39d SyRZgoSvgQ08KMSeuGf6 zsrreABJNlIbf0C9bKXg26Co6YIFaQrHgO1ECLquV3yjCpX4Puq6OUtPcciaX5z4uDaE+bbq7ZsvxV51 kxMDbeVt7ddDYuliLN0+ 3pd+1jUzAjzd70NLKyqivBEUc7RrHvGB5jKIWNqd69oaSMiTg3QEEVAfAKHJ/Eivr8FGmpQBkTjCvl5p e/WaEKIrta0ue7Pq4Fab Z3BWDuekXI/6XYQumRXEv39cZBzXzD1tCntp+NwzCMJgM2asIT03vzJ7+lw5DGzxyQnmKnPOpX9u6sFe oFEba1ix/b0QN+NzmMZQ iyR/VTlOjLk7IJpagiXfRGxRznF3L0kib76vhTLkr2UvjpGkxl9SrUQycl0M2QTGj7Uz341C/9QnLN2z +8+tmBJUC2zFOoFOifG0 76GioLK39lrimGfpDFKwPlYNqh9b4xQTjPMU/al72BGfkrNy84e1x2eiIPlzEooAIWxYePi7iCdYHwUU hEiaLEILZyvCLvuvHbJr qnuEnTEeDCRlbtIpxJRqkVwe1mgZrel4Dqwwp5xH66ncGmz7hBP4lIxePjAOq4y1GrFB7YXYjUjVeAVH i6djYtSaWF1Xy7ClTWSz 5E8ceX4s5wgrJjr8u/8Oiz8TtFy9IhLXCPPjcNNKS7h+jMjZWytqjzDujpIBeJrdB8Vios4uYYjMcadV HyJBZCfACQWr7EUiNoN5 58tSWJhA7DqO2nsFP1OcQW+HKWZsA2cGsdbzrjEAtPqTgbZCVAnv3xmdDsTOIbSnpWhbh1uYCJMQ9H5W y33V7WU/yz6q/C2uWuyt VK7RkonRpxI5nD8kUmJpfVO49e8/9E5w3U4scSALZQrzC1O9lQ+IdCYDNYzEPNgFGJeKWbep5YMKqdC5 5BERyb64vNThEyoSkQHG QqZxhH1zp1yiysY0B9rwcppNFXKMWULnwL5Ej1XCmLBSE7VOGACSOflMH8VhVpDmxK2RNy5L5kx3cImz biMZNm1ESXFtDqDUBMGm 4Xs4Fed1AiCcfdIuTQxmwXokg2gJHlkEgys0t4rIycWPSte7Ai7BaPYMO159ZzDJ47TUmfUpi3HhppWu zNS+fPyLONZcpWK+axgh cTJZPhDR6PaHPHFPfDzoZkxvfWL43UHG9L2961MH4i2IU/j62++yfsSJr9bOLgecaJqlgsSqHTVJMeNy dTHG0c40Ehbsi3jDmgCW Atui7SzzDi2T28HTqPRHeTIOubww5UVtRqYYGXkF9njwydcujEJ41rjX7dMWH9illUbFWqjmkA0U/YQY sTwmNWn6JnMQw8Zw7TDu 94aVr03DeHgkxSY+ed+R9hK94y0w/Z56XC1oA7Wq8QOAA/PkTuWcas/Hxc3b56W316xWW+qte3yrQMsK o5bsqtfwJABWbzxuULyS w3dRY2eRoMgQxlvX0i55fb9qkkTWpOeRlnSOmiU7JjlBVQw+LWyZddYeyRMUKxXq1FH4T5ue35OMRcgF gzE75UKSZeJaXyIMH6Wf IwWAJ50d27TYZMlfoF59Mr4r3iy5B6MQWGcsKZQ/orL0CkdD4gOOQLfdnskRaVWllf3PMA5VRJrKrAo0 dSmWW01k+Pp+NSeZP9ku SQEleCHu2YjQU6mTJC/IH1HAs7Pj8WNcta8AVcRYkUcHDNi5ladqC/3hciGk4ArDNFCtivg0a6zb05gu KipGXuqTSu726LJ9+Tl9 VAQinltBUJx+lrYCMq8D9MK8+0f5dTj4YEImF2ZHFZ2vMAs0cCNp73lIm/MlGG9KEQpeQCSBXSx0dmWU cg6XxpsZZRLQZ3SoJXl/ Zq1rdl/JIFQbPRjtVpPUJZmr7//0jWFOk9HNuAo4p09V5KyEa3d2glElzLKSulw/tw86IF7cyyvyF4Uc DFOPb8OV552omBff29Wp ZrcZ0D6zRO+T0weuViHULW/SgVouskudefrOs2YZfQrxCMvWtVhzI05n2wIrFcmh6OKkvNmwLfdf4Vlb 7Of/3YjE8nLNGEPOPDNS NA/GXfHQvGDw0CAhF5dmP6YLfgzdgJjwevQIrIJUaDpGTZ9+Pnj9Ho88s06F01BaW0DjTo+qj1OrFovE w6oyn4zJ3y3vBTB6ghUA Abyk757m+P7kfNyJ6d/Mfcsk5lUwRzbhl4iVUd6vPxJFE3qCHVLFWKZAuQ5q0IsDWOtq5NKn3biIpZJV 0DLyVneNvpdXV99Rw39L wJO9c3WanFcCj/3C7c1jhPfvUy1a9rvWMVfC081sWz5KyPt15sNqiqgjBjG96fHu1m/sUmNfbjkn4Qu7 x6lw5a4EgVyTmfoBPJbB 5odSB8St90ONfaXQnMr7HO499P6q/MX9PGoH8ldhstZ2Ai/281ZDRnVOe7Yqdk1mY1J5vLYPvz8pr3/R 8fTLXxsjSSPvqN8bipeL juVjpDt2Vwb2pk3ahlepFgfaMfCF3cELZAQjpE0lVaMxcjt423q88boIUW5/blDhqNWXR0QNdIAAHHki 5AukvAr0Q2QQclgg4t82 +UKRU782wMtqCxXPJFaUfMvqVYdVBr1pnY9933WOKgmO9jp9wAk5J4ak2BdpIJjH2QTROxPkVrbkVnwl EisTktiMlJGjxu/88/dP r6+VF51zDORN4201dwfgSsZcmX36+rd3IdbHLphGcpxv7thwsZg3YX8H1AumQWNYW1ek5AzaQGJhC+q6 VjjondZijTT7637WDz4k HKT0fKjg8TFxyvpo5WwHRi80MFumAMbpM50oNk41vVy7rhEZJjUU1QNYGUtkxmKsCct/ohksLPSAm8M7 N+Nn/X39SVpzvdtqSOwj SHNr9Ja2TzmhruRPRErDE14/OKU9NZW1cQLIyNWn3oGLZR44Zmy5Y859ZQwl2z4nC8iyHCeAeSmNWf9h y+ySrPnNahEcyodg3TmS zrttVogG8d6fa33Pqr6hypqV4g5iMSaljZNH5UJxaQ72LcqXnaHHgNQpA6dk8yZwWd3DBIfqwE9aYVLf YOXoLChCnHL7Njx7M40t 1udwmiBbrencOql7Dgra4Cp1vaCIRxDBjdPYq9fWuPJGMKy6d9gyb7YNEj+QSjjqlgjC6LlCZTwH3MtN AE5ewNZ98uK+t5qbzTEy boh3+FHoWFdQfAvjmmzX03oM0q/mWgccch9QUcE3hAb7LJ9v5B69ofgpFWnY45XE0/CWsCUBrDCwkBiQ gJBkpxYqtFpxBWr+1YOd Mo1GAmo1ifhaUdXjkYStyE3ErHOVwHmY6lAo1wNR96qO9L44/sxjr//RWBScnXeytjPSpeqb7vWFYMfB 5HgfwRJkkKx+F2Uk8msP WR0mZt+0/L5pdduVX5rJrKfeCvskXO+NQ4XDYHUlcYyGsuWxijxXJZXo4KUoK4vAyVYXBIi4Jw9oL6zE pVcVWFKGKywMJCTkwMAR gGbr9C2WVGWMDdIo+lr04evMjiHGadmSenq6hOUIkG4/GvGbQlr1sCUkgR5oqNEy2K6Qx8MtRW09q3CX DKJzBZXGAGi5bbc5MEKw azRaDQaGIM+5ccFriOWZDzz2Du7yTir70fQeTSJIfSNEYYNV7Ozkm8xVImk4IQ2IaWsrqZgWhDPmC9eE AVVFMlNFg4VhkKFantYF DaH8vcUPoADZ2HS79so6rxoFNRIiNdf5Xx4Qvn+ownLsr0A4AP/QuOckdah9M5nOZVATiF1OdVi7t08/ fNksEyDD8GObHwWCcBWK tRrLRNsEZykYpcAvoxxNbCBhYj4SoUnoUXC1Weby7atSHg2k8ABl3EP+EoWKQxgQlPXEGi1N+0hjmEQQ hutcqNdrMHpUy2DDOUJE YACVUcxrGmdteC7pbbrEHEX8UJHRoNMusVQdTflimv5CspOggHgrllmNYzMmuWfTA2z3720g2uveHgoH qrrMhUkywBBACAAApycu WYXAFolrTDpYJSbCgn8K+cgWPbRsl5AekPjXW30X/cgnYaoXkfFckijfpc1/YUWbHubDngIG00iRlqab V80+AJzwT2EVsUqNu5bA I25D1ojdxvCrlShZzBymj58A/hEIAfiWyX7oXIRs4nBDaKgVYP/Pj8jzee1bh6ojJWwf3mUHdaxQRCLv COLWqiJfZQv7UZd4QLym b6CMadAX4TlBETpS0u3FWh0TKw0iyx2NoR2JQulTHTaBcJ6eVQpqm3rghup3Xio2irJXSqyG+tHCATGp xHqHAWIpcCyYNHGAQRCA CbuQ9blnbJdGDdAeWTeoSoDOFYlBWbyeUz5Z0oXerZCftB8nkeqlgLYxcfn44kOw9uIqZSDFUXedCF1G 5fTLkaxjYBLHfdl8BgMN BwELirVcwrl8j9UVVG3EJi6k0eYd2AvLeD05kmO/StCAbfIQJC5nUGD8drp3JoPaw8RWhWAlJgVTHJHD VGjrsTGjrkdqmscDGbru eTiPX8NpMzQO4jQE2wTeBIfzT3ggp0o04gY9+/SosAq+nQqd4jFJ09O/uZmNFcTjlJj5C5XtlOf5GDzo iY4/MboUrMNwOZjXS6ch PBKQJW4RfA/S31g/a7dlFFSzVqJfc7q9Zfx0Lv8ujAYuWlZMBsHntUt2gWPW4leiQLKFY37ENZLMhhLK 1ZLiFMryqb7/Ub6O2u2b 3+wOgcB7uppJu87zbP3wArYy0M4u3sFLKGmzbz6eRYoc94+FaPXAfu++BmVKQIcYMhPn3W61ZvG+nWLr z95XWD+0vU0uUnCc+U9e /VEAqEg+aR739m9t2wYZrSvyg1zVxVwUXU/A6zxMb1kzMJy35OVfXJgk7PDiiChAsrIoOJyKLKh5Wsko hUdGN3wizZT3vvAAcel6 op0lENnXd43OGGS8joMbGT+BoK47bhvu0Mx0EV8Oxp/9vWm0mnUgCzAEAiq1muTNUNyPJ/Vo8QqUJcEc OGwev5pOhCrrynw1zVhE QQDBC7HIva3NaVHeFt43jn4p0h61IQMJuvyWczKXOnNmUcH4vm08+vng31YewC8sLVMHkvrmkwTDfYdM /9pe/dshb8voM43l84aX KtkFHYCBLkSLrWk2mtWQHUgDkkSYTck+9SzktzPqXhhIem53hSKE2Q3ZGbFRBMjt0Qq/etl9dCQFXZBI AGeZdTWF22uXA25+UT88 gyHvxkr6A2jPCgjgmRdjQ0hEmhcc3cKft0aBeaLnH7+43Rsu+mP92FTplktoyb5Igf6/r8gWboJLyxCR fSNv02PCzYbf+Z+mF34W HbMPUAHHj3BKX4KIxDq+15YSxjZny5RmOQEOICZBSx0SRNRVewnTjDA4vZHUBCFCpR//gOkk23aWTrYl of4RJ/FsYVPivx5ZN3yC I1aQ+i8fZMtgz3TPpsiwfdFZiHZjVLrw5PvjlgjvRUX3NR3oR/uCxPikFCkqRykbBKsqtkQyWxArwPT1 EKCAKEYOEbyIso2/Iz8Q Zamt6K0iiZSTbVZfgOpd7Y/y5gy7lc9vk4KIiHqTIhtAPY9xr1DzrPMZsJCike3uWrZq/FSyBgArLAwF kQ/frz0l1+ht05UkpEBW sEIEBhgyuOTuqrJSXRkFpUBfPQtEs5INJa3XxdkwyNUALRTie9AEuVNlKKSABPHBeVOeKI3Sqlcqlmge zUjXONzGgvPL3aH7x8G0 GUNxXy6sQCUBmZXsENOQLiD+Uu7Mlgte78uO3/2raH5J9LDP6GLhXuTEzw/GlJrZLHrxuPaZF9sOUNFs GM8x6llsTzRqa48usydA usB7qbopNKcUBWYjcuAzIVM2DJUnTkY0UTk5qs6zlMwdspFnYvb3IJhzvxPNMCAawyuSJaMr4khuow07 kzC3Su8+tPFlBqwwsIUi TXnIN8Bj8kY7Ns5GLzt7Vr8JFl1REhQiuCme91R1nHeDIiSVN9k9tNQ2IftwDrOLTMhP+fJI26M/mHix MjRRDVVPIhMXoGBTp0OG UIkuPAgzVH7kRnPZqSpzGLyaOqod/++/FeDt3/y9/MYF0/QaYqIQAsAIdfdq+iCZaVc7FB94d4DebSok XBt9dDuLDnZviMtH2SLA T17Wu/sfb0dtx4sYRp7oMNEHMzLQVBcH5Tal7fpx8tbaZo0Umdw1uJi2MvTGxXbfZO7nMUQ9mYKNcNu7 +LT4ldAYKFiftEhIDONa GgaJezEFMPExkXwVPC0rZ0qAap2bds3g0z+Rej16RMhY5MEqiPC5q+QelibX7srqvHzuVKpiMCGJ6+rr RRodHTjJFLCYKCVCvGrZ 6Lm31D5QJZJfd7+y4jcqqBUqPBbKpi8gtWA3a+i1+t/QsV7ts0/RXCDGSoONGeFKElGJKbTyt7NBUjgx UDQqHHjeQsW+mhdZ7CaX h6ssDD/BVgo8Ly3+5onjEVMPj24lcGMQDwCBlqMXAscPJ/mxHrRe34Q/H9nmtL5k2e9/hSi1Qpato9K7 kkNOHAgF748ry9jSENVJ wPE/LAotMIKLGpPbTqXqPYTCZspXITFNeSHCRwLjbOOYCPXwvz2SDJMzQBGUJjxMWZZNgXKUCyHmbXCK QBPfka3XGNQnUKNCEpvH FDXNfXXXLdQysYABZNOsir92C3/Y/4aIHun7+qFNmOGzVdpHkfVW2Sz65LtO7ixgkCor0YuGWgVv7De2 hc66eq3+/dHG5NIfAixD GLhiQ3KIIYI6UN2oCxLTwswwMFKASBiv7eD+c/f8K63zazn9gv6Z6eAkillVL3INIRLtm4UrXl2po5vV Ed0EjVrq796mxBPkys2d SldKc2jdbc2xbadcTup1nUum8pW8+gPTm66gYJg2bCbqAnefPa5hCvBOYL8b9q8fWz11XXQMp+xrc965 k3Mr1eQVEUbMwJQ9nogB y3e1cn7c1Ca4CtFI501sqk1H35WGJu2BQBvi0zsCUKKux6LXpMzPg89jnbUHTBaLfBEr2XxtMgmXWiI8 HvggEgk+jslxvyHSUxMn Ih17wLHktAl7xAek6dECDyPWjZjqKfbmmIwGp3FpKfWN59pe1NngP/hZfzyVKrI1I5kuPBRf0g2XMfDf HGCtjPv6UJuGh3ILG7cb sLaClMQ9+5w46ke9+NOnakLKQgs5HmsmwbzCcYYCP9aUu661DgZNyN4+PV+gevpb0ynihjXIxFQa2PS5 vZMls8n7nZV5f051SWDW 8SHM/V6/ZGDh/zK+vrf8l1axl0kRLj/g3oVbITUz6qvwSEO0X++6dS5c+Hyo7/9gcBKAvWZkn4+esSI6 RdOI9meJLFGxHVL4AuoZ 96/Q6eO/U4cYhPNippNm2KejhDsCqxjPtoIa8ZN1ZIsgQFkfoCgeXqmNQkHpVzEGu+PHVOcWFOmTeO/a J+bm/vj+VvmuGkLd4QU4 WUoEh0lw/1jxfwn9f68yHpt29P37RRM37ZK9LuaHi9udEI/Ln/z+g2/3X/iVAzTYhpQ4s1aiS7o61wpd XG/r/siU1TW88/hA5o8W h62YwGD2hnHa6H6ZyWbp9ky4TPUyVOMaVx/e/WqFdWz6hn7Lv7qZn0iTfZjaHuESgA0sIDRfNMRTMADs Wqlc4kuPs34wR2yRuu8n DvMIMb7qcOA7aCDfMBRr5x6/PyYCFRAI77k0wMheQfeDjIWf5d1J+FtOzsQeEv3paWQn1QIAu5lfLSm+ dKPiJNYhXwCYY4c4fymq kRuk9QfV8La2rLebYphh8oeSsDUChLWOG6SJbUFg4wv8hLJDMEOzRYs85WGMfCZBG8+eBm39Ad0ZOGmW Ju6cvu6mVnrThiuTw6+R JydY4WNYL350aEMF5JmRddrOtC3eVtFzp608+1i4lVZnoiDnp0j/nnU774FWpqXYstU0Fl3UKyfA2SIC E6ho1KxTApyyfs2jR5Xu umv1CVQ79YVo843iMNVjs6DxiqLfrh+7B1wZp0Oi2/f/lJ49dHHXnm2fDqITLeMyld06EMOdgHdpYvFu GkzqcxSIXIcd/5ciEqtc pa8OTVgvie+qt4614PvCG+NWhMeHvbg/i9aXuxZfMPKr5r7zh8s+Aztm2BeAWQ8rogENKrlNkQlgSjaS GjIfOMV0piCOxZimkgEk sPCHp3p2qdWmcBNljx2dkMJcbr5vtqBVS7rPRaH3Ua3Pf8dKlc4j/lxSoaiIB9TxDTd4+nxvVud3nOjg MK5SJNOTXvoWTDoUM1Bd bZDbQWdJNCe18IUpMZwS8clhDFRi/z3odROTd9DLsi3zlNRb8tneFNFbZxawIFGPqRk3qf6i0qwoTz1D nVu8sUm6dhm8wnvHT+kj 8JVEGEiTMFQGByy0dx6ZoWnur9GMg0TqDTobtb/rUNa1BzW2zMa0vx+of3FUm88G1GrAZJdwQB834sbl pXU0o4x+m3t8BMihucWA 9pmHoWiCGspp2G/mfgEm053/4mUGQ1hhg7nS5zpVVHZKG0y+9lEXAjWyOHKRXsFk6stYpgd8+YmU3RhO PNAg0H/0mRQzCw0qwPxC Zcwb69hqr66qKnjiNmKdPsZlfqLskgIc12cRFBf68eKB/7Ytr1v/359+l8JKXdxeMEQV5mFcOAWIgRmY 4Kib1cZwqd8+2rXYq1Qo 6EpI6uCPCkR8BFILfKt1oNHcLqOojjepkg9jXKZuMyQaBM+/A6reteo2sTS2CAqJPsNsw38KxvJVkFQp s90p9ivPEIoMb/euZOcn KxfcuOjhgtFjcpkepP1l2mo0MWwq27/sVhcUFE/gOPFSziADa26GyVV0g9+qE0hlLJ3T5qJnIWPCWd8p SHnQiwuFgAQBJGWlrZm9 isIiLDG4OGh6+p1a/PBSUqw6Gf9uy8+InABOt5hnCc/7pf0Vi4eExymnBVBxplQTyoUltlU7Rx7tf4VU 8pxRduwRk90ESbpBRTdU JIr1umIA1TLpzTs2thVac5kB20ENyzTvOOS6dJk6k2dWZs8iUQMhxTfOC8fGky/f/wbUU53DpGMhk74L Uvd0dMW9ql93+aNm+zt7 Nv08aQvNTthVLr/Iw2adUyoX34w4VBj8SKvledmZyK9ec5+YVNsaTvDBX8qNDg98wsp5QYimMco6D63d 50xshm8x62NUBwFGmly1 AHw43woMw3xutx3H/XNN/C+I4iFo608g9gtgYvhG8uPo2TKuI6VUqOJTi32a0KY1bO5qm6s+/v6+fv6V b2NYVDdAn8yIh0EsypEx f24tnVzswyPR+hl39rt7BSgHkk2CCGaqMmGrHGqKfzen5d61YuVp8Wjvwm6W3/Kbj0WRLsHR51ittfQ+ 0FFD2Yuvnf4Aa2j5JdFv OER37ULl6iHXqG6sKibW52Ocu4oI0mwR/f4+/pt37rN/OCjhw/1bi330i5wXOTH2UFm5Mhn6/j7+u3Y/ kf+0N07d/r7+uTz6GrNp Xh4K9HwRdyGn//y5Uvzg+MVtYT49MuZNZLoIdffibyhi+8q522rfVq2valz3qV3ELyRhW/n0vMCQO694 CPK8Klqhsa6aCJQTbTDO ymz4lTlZ1N54rsVeGn89xGe01rSlUSxc/utv6/f/8d8Eh92cxLTUE5cnV65HvO5ifNju4kNVFHoK/TyZ Ncey7Q9l/Zsf1+/7p27v Zf5xqYFxBYn2Nnw0/BZgPqdNkFyCVQgPHMqJwo2aJ/Fq9v9CKfPqON71NtCqDyRu2tbge/wxwNS0uosd pbYOtUMhZm34dU5fSN++ snf12/EJs9ARS+2dStf+M481qGv6JRspaoQ46+WzUe38t+iJnzZZrn73xEkwcZdkzwK7Hj9iuTKCUze2 tr3yaTZAO3vx40nSwH5a Sb1eoUZ9Ht78DLhcYYnxlKsOoVE42OZ5ccmpXxRnByZAXKO6mlzS/i2kgU+Rj4d9h8CfYiOeeZ3KoiYV qICSe5d2++r19mjtsJKu 6RcRmDu81w794TESNVa48GX4YAN6ebtrn9OEltAeWqD482QH9nZ3SmY/QcO/Js082WWduTRD/HwwQOLU GFz2pKOh8Qbg1vc3OioC DserdOGYDNRKrqhqDnOHC1Vd5SFS7zlN/4H9x+wKvMRpKamxr+JN+36+RYgIIyh5q1uw3Eu+O6Qh4okX 87aGM9Cx4qBxiLvHwfGg 01jWikl8iierEf4zkIHg7rBhbe9/neoq54dg54ic/fbWXfuVlmE8kJ0wXpQsx84oFRyJPD1QoRdu9LXz Fb27jlgxr7FPnSzOfcqu najkWxSROHA8jlnUYELeLx/PRyOvEPMJWfa5cEvHLr6i8yeVY0/ubFFRn2xd5cs4M4oUy8MO6/PuTNnZ 69ewdMZNf7JRysx9hzJh +fN9/E7fw1YOHhmEF7za/Tv5e97BbtPGp64HCpN7Nu4mcT+Ih8z+blbj+3psgc26TJA/h4z7Gwbc80xf /ysIUwWyGPU6p7OpQl8y +Z5SmXf/v2+lfeKTV7eHwfr/us9AwAi9PqNfgiN4Ti1Y4hT5eh8+jYBnKjB1X1SvDkjhmHpS5cQetsSW qPBEsYvaXKl4pfANkol0 ai7vbvYBcfLEJamaiGcT96uhb3bGXuSRZxlzPJiOOsDwUPh0Ezx236YruPg3194o2jBz1RLMj8mDHifl ZXq19uyuOe1P2wR1x+DB NQMrFe/vtUsbt+58kCQhsaILejtXSYbCRTYZbIvWV5ixnqyPA4+JEPsUuFLe23ihjthGTAAPRfMbrA1W giIxrOzSghpodN89jgsZ 9i3/8yEroAdkBcHc1+PBd4+Zr8yw20FO1a3wpgUTLUTWPSO8OPOM1VHZB8+pKVAvmw2s1/8PHOWVQGSJ IUiEQCIxWKhUFhQOvlZO G9+VLEfWaHQn06jEWNA75rGQblKlVx/z37x/EV+gVsZwI5jybTG+r4cJPwc9QmgOI375nbNlu1rPmUqG 0+ihia27nhaDVR3334pp NDDiqDTY6edP8FrGE3hLYUyhOX45wK323G7f9+/evWqX//+E8QzNSkh3q8dpZtqUiwVk6jCarjA6/fN8 mW/od4TgNYpMOGT1XOo/ CDO1ooXnpv/JsGmHLXdAH0zwuODwKIJbG3fpMuWiBLR/mneUx5bjKq5MPG9vUaF/02mBTpmERXE2iRGM LS8t4/PfcSY8pi6KB8+f lJUcIcO+L2RLfSeMSt4eSAt8arXN/zbKw2fU79j7xSoQbqqOkhxAld6/Z/WgNUxQ7Xa28UA7r2fDXk61 uPHjhczzcKxMHF+0EPII 5TVPLmya6X6Le+AFjcb3Tte4AtiHQXuEd/9/phMjNfFTXqbF9H3J1JDx6n9hIYbifOsyrimI8oYkWzrK Ff6l6hhcn4OMTGodDoxs /DWGfSo6tfAJiXsRtqo1+HP03MzGdU+8E44h3pCISPmxRMjBtcXVtx1Z83N9Yk100zdxa+6Z/av3ikD5 P9rCcwDd74Uicng68Hq1 WvVujUAXA+/ryD37Oiq4JnQ650UMCxwxoPho2e986/hT/MV9yTu1+rVr//YdrYWWq1aPOMgMwe5bY5Bo LjbFZSEmYyFah77in7vn QgDUd8f2TK6iIX7+rd1/UgKzmSgK911rBNsDrahb09BSPBaqrVPEixuBYkxSsbPOFbIE/m14ZjztUlm8 6aKVwjHjlRj0EXEU/lt/ bGZOFUiFOP2Lo6/zr4b+PunyMzMTExIrN+afL7WD60vg/yr9BR8Cu+VxhSlRZGVS0Nm/gbTZcBDgvR8G 0+R54s3d76o+Ob1m0k// EAOQ8mNWmur4qyM9j14M//mDQD4+vn6+TH4WTElods83q/PGRkZ/IyQLUQK1n8m+LhNZaq2hGJ/wsEDb ++kmiAVXCUUdXr5Fy+Eh eXjYGqHQE7EL1sM0Sb0EaWLEoNCb9W8yje2TcPq7Xbtu0hjkJSl7v6eNf0ydambIMx8DkzYSwac5Twuc ffIAODB/bpAIe8on9BXP m4fpRA6mZaRGdvH/f7gH+5VMPfGfPrEEKYI1cohI3GL5jGIjLqDMh8pr3ch6x/kH9j8KQQO6C9hgGtMg T19rrbK3Sg/bldAhwIAS OGsOZpOv5K6gwv4d5PhM9bnbT5yfiyfxY2V4CA57SoNYNdVDtby/Pj4+mZ27NdW4Uz5k1U/a0woVwAMV toBVVaiKXZc7zxUQFXIZ gRnZxfzVpUyV/umFcBflczlCd0LSw6AEIDOLXcQQyaaFw3PmmO+/FRcfubrQbCOs8sc9AcyiubIfWi9Z GAk46J0QhBngbl2+jgq6 e137KMXI1Yowj1kdT7JUJa4Q67ja4PivjhcgxGQgNtIr0+/ZdZkLHnvbep4HrZNQ7OyMl/jiCn1FZdFp PWlT1j1ngx0lI7aoEWoo Y9fwG/QxKR7PsStn5aDbJi37Rxv7nZirpUDRoXJHLWteI+EOgLwFsL41zJHE0WT86bzW6vyXCVVk6Pvm 11eYM5EnGWG5KaMZfpq7 +GHceMNRoPVDoWJ+p5feUd5xCATs/Ql0Mrgl2cc5UF9th33sdJD3hx3ugmBuh8fSzYogI8xHmVpCs7h/ 3xBHW79gw7ji7hdItu9s rb91VObii5+msB8XXf6VSmQpB2pZqxUYDVnS1tPaGiqK84KPEPhZz9lF55mFUqvjbATRuvKyNWLlUcoI TaTc90InhfTgbwoH8El2 4KKOEkPBo39W0piE26xVanL4MXFCJSK16ekQKfNgTqMoQbYnvEZDAyabOQw/Qdvjr53HCgwh8Zk4AVzU bQd2gJarHfTnR3cYnuyk i18/h23PK7KCXrHR+M4bv/mcADFDirCWgIOmt6it4iEAFFXbRiFZ5X1TOz2/9dn+MiRABD/6l3HPRC+q GNSoWLFPn3/9/6REf1bP 2cZthAbCk+Kpz7HtNooHqb7e3mlspvyfJ4fy3j+x0AGasYtg4kROFvulnZdT5OuAcPF2c9uGEXd8IeSd QzDQWv28HjickUcDUasI Jib+E591OGzJxkxo0gv8f6/+yDFha9Ko30lp97cFJn0z2cvQKTO/1cg+GArG9+kG2TiSIX/ruM/dEERA tNbnCjqLnqvJPBeATSat 11knzC3n+fUg17PppEv1USm5jFtsCAdNd9pAXvZcfVJ/jUXGzQA2Uxow0cWe97iTqG6QLvu3YjRoa816 KP6DxRkXswt0gi37VuP8 9BrPmiJHf9nTWN54IrA6q7OJIbuTsFReaYiev07pgFvidseQGgrZU1ZW+jc1IZ7X/olfpLjQ70dYodwb /2vORxWUP1vDQq2zyp+9 2NOvOB3MkSz5iybiT5RqMlfIQCle5cs/ShO9DlEDRjAJ3iugHOGkv6xSfJuOP7pt/L4ib+hha4qu37vI 5/mZH9Av/8I08rjWvTCy 5mrSiAZSEROwGsNDx8aG0eLwMHRlCEGRef1LHd3lMUcnqzYpNnt/Bb7TP2dMkVyrR8HiNqdnlDUxZjgz jMxGpikEyrO9PqbEqEfR WYMxq4fgppkmj+sdGLWcVAcQbKaUKZog91/hteDyvXIV40agAsyerVBo/+yaNGzZ8/xWz3xNenrNi82e nzkqNHFsbWb+Ftrunft1 t1Up/v27F26+JfuPXuYDzN/BB/3ZyM7jt145452kf67fpynvm/gVkZR2KjPc8Eaxova8MQxBiVT9Hb7/ fehW1OAHYDZPaKRgwpFH ViFHBfrtnBNpI3mhc3qf9+ORNW3X2d/6IFk1xWk9J1GqxeTpIxhAvba9nttrOUjge3X+xfkffYRKBSKi OdYZZl04wFi4+4v8r6nQ rlSK1bJhjhwX95yDgMRPuLVooFQnPucnz/Oyc6+duRi1cMizm151eZePfsfHMHmVi7nLxg3ETAfGmHUb i3BCZgSPhJR39mcCPvgm C4VvGjopgr2yhlqZy95jMovAs84XvHeoHddxkwiyyugtoqaOJVBkGIxFXurFlSLLHlzcnVdIS3gf95go aEq75XJdzOF2bLapGef6 9TWem4dcsRn80up5/Tii8xcj0zndVo4MCJsYIso/YtY1HFhIV3R4y7t4a040QVOGFkk8+fPBw8Z+kHZ5 1o7axGzKU4DuoFIWZMF3 NM7SABXcopZBCG0IVX90esdo6qr+4f3upU3MM89e6jsPaODp2lTCqW5d0LkKkkFmh44e2/cBirzay1hl t8uEVwyvLewNZJX39XgL xjki6Gg8LE+zM8mE7eT/1yLphRjzXLKgvM5YlrHJRpG3e+3Xz/e+yA0AszPfEo/X2ilvt2h7Jxmm6tJ1 48kzEtdsMVNpmZs9JsKD EM59Cbt/1Ub/x106Jq6L2CSuSy0r+ZTKEnsjoX24tauNXCkRIPQwxsa66374DqV9xU+qo597yJIpYzq0 FtTtvC8nSjm/+4J6tXzB +LQUXQdFGx72Ybj3ec0r3gmbJ+wu3cJmlmDrguyQn4VbheOfgQN5So07zF0iUZh3f660at7/M8ntYt8+ /NctoM70Z9lomV+2Auvu Ni5QLPK2Yw/uXWNg9omhd4ohyUSIZZaMoK7QcIsDQUp9tdi5d13i5b/AkBiYuLkH3/M5SRJ1dcIeVu4V 5JwZRJh0mPTPMsBkqu// Hhd4Psoy6vPfG3g75/w2oqEJYCb0v726JFbaZfkON4+xHY8zSIAD2x7RZLCTADxTFx9BB3CJ1608fcFy 7Ls+HDbFCFz1Ga+d/Jvw vBDxWtxPebdob9Z5b1T9+/b+/ly0ufa43pludwEQWgT+dmaUkSK2Mr5boWpL8Blzrp+zaJJ5snZpHfem fbg/IUL+Tnwf+7evXXzZ onESg/F18+KbvQll0vSS0XovHXbHlhxHDFfERjnUY5/gehKzcfJRQKs4XTvo3IKoRpR2IGpSNMXRvtP5 7Zt+MjZC2Je15mbJcnqD WFS5Hcjw56DFUOU/0Pde0dBdj8uJBTe0V71cmQXlpos+AjFmapb4bKYf9XDcpf5MvRvwJgS81/ggPwRD DVaPug8faZI4AmH1gRCV Tq+BoTqL4kzBHIUgDhjmDQJ6qyLlvgEe8GgkeMgltTSBaENTPaftP/KxZt5SsX1Lq+lSaUOArodzH13f 31i6qqUq4wN8kdo1Ami8 eExf+VCozVlKx7gDzzobvRFemX2fVNM3THqA7eCVJe5xrGe0PpAurZUDFmme8KVlQwRbXZnCXpgGzOx2 Meh5pqB9nHuqYS3h2RW1 54I8FT0vpOPtl4/AICnp+hjcyvP00PGrEjF/arWQOXq0rt3e/o0T009apED+2FycXu1I/6LtNoD2jhyI RLaVTQuutMqfyl5w85eJ vABsl775yCAj8XW2ogFpzJQrn5YEHKuDqyo/Y7tVcjZ3ikDvqTPvv/qXcX27rRB8Y0lkdLzCqprRRcBx 3De4LZfHgZY2DjYgV19V a549b5f752d0T3h7hPrE8LmV7U9fozlLcznmJCppPGMuUJ92ZbfGmqa8o02A4i7VIHeEo6JDBgT5jtbp 4G6wmz0FKET304al3CmN vLbVVfXeHGlMRDkTqUr5n6mqjHQTtSROm4NXIKjch6Kva/ybYd5LAJsAaw+fetW/ut5Ouas9DPK5b8w7 bsEGhXPGe8TAbruThyTp bMUZpawpgbHKeNo9r5fpcgqfAswVJb1XIj/gQ7aC4o+WR7ZjrkFyvARczP7JkxV2tLiRACrBg00RhaEx B8ebs9moonYVn7LNXkHy a46yCxSJwkclh869/uzRNXQv5oTRpia28QzIhSwPwxq8kJbrpJECh5s8n55CMLvyKxPPWiRg99G2JNw0 kReet4kig5MwC45Bp5k3 +margret+RWf99njaBke5rl3V4oHNaqXhRQlnZcIK1g/hhlDBIi40GgLw52rP2z3P5+nMSa6nmho2rqofED+O U6es2xm2YgJlM4Zcq4gX l006Zcc5rnoxKkqas819zcyvo8nf+gtSExM/T1v04nR18VLa/gR8/yCZBHfttGPjEzy4TghG0soc/CoU WvWrlkjFosDAgNMfppW4 B3qONNxJqMNdQfeB26plQWlyf0pgLQy7Gp7Dl97ew/04mURP14GrHOSIZaD05pe/332h8KINr9sa7vxj 2zadGDf/uVLl5k+XQEAs TGx58+SYOFNnu23C4KYBoA2HSag5+0sMMxteTs4HULhvrjRNtVF5Lb6Cd2sr4e57WHt7/9ISUlRKpUMw 1quDlAUqFTCMI2tIung2 ZRDKBh2xRNR0/Pif5ZgUi7CsOt5I/v5s+u2FRt6U+z4I4wJiDc6b5gHOdXTiJzfeJ6/f/j15zACo7gr0 nuR5jZAtqeDAYOuXwMjT dQAlnlU1663e+6cOVqNtk/xorKo9C7s9IymlGxuEZP+BTBrhfsYpevEhdwip6CpUJZD2lkOaDrQCN13K K5S+wkIPbpnLi7Srq3+T bxAKKBIUqVSRT9+yCXcdmXLdk6OoCTaRBhi4k2j/HywcNMZe9jnwo+7ju/SPXOxT63TdJKUYPuN3e04T d8zgsdtpvDwHTN8QWr1B sHgflCisJmvKTGmx1R/3y9r37OSIvVwQmRY9vjU23+tf0hc8mf66Wiz3LKVqDagqRCOay1jFbgaVvnau Lq1lRLCUKMQDinSLQ6Bo pKjh0mwX8MkxC3zEltouTfq51okxnl42EtLlWkV9q+UCHNJdUbgtW9fW+JrTmbFiMEOqdhDuX57AcLdy NOlfoB8pXfLy8zq0mgrF tv8XkQGFSoFkFgjyc4PxmLlr+tbAI1YQ9ys0ZTxJU4lDADKyl0PvcZyMDTNDZL23uy8925pqbtYByl/7 R8mo53pV/j5+oCCr5ktu /HVvQ3gI/U2IqTi4+qFc4IbkQK674+fP3/41Y2r04m9mMh3QdEUbK496/JWw7w0w6l8Hw0CreN7ogpq3 DxRL6mDzuRx7rh6pBTKN s6d/uQGv9vCCPwBP+ZPFlEpFsPvJBfm7rPW+/lyZiSMQDEESt700rpGF2eLErAo3L6+qwT1C6C9wZMmm mOmfe969vpbb6r+3L2bX 32b8wKCOSXShwGAAfBfQi5mr/cggJmRCEjQOihMZ6jUM4JFGE0fEk3hhDWDoKiNEv+/Xb5lSlQejOkt2 yYlo5HknUDhs4uawwi2X IaiZDbFFzSelZ7wqhmk/+l322zsil5ha4/PHh3DPERD1y4fmCLXKw9prjkdOQPLR/bMag7xMOl1KUiYM Y7YoDLGbP/+/cmEZ3037 MAz4peGPi+8IM3r3z33e+/Y68yl4Inpf6asKCVbtmrwY1BTP1+u+LAOhTuON4Imzhihy9p5MQnDvNoBj IoasuPfLiCFhDNRr3F7H YnD9L37Hcw25IX2w7ufUtD76LY6d+3ykWfZMOAsNNTSEbl9Sl5NXsSQhwMrrJ//7rTrf0VGuVIAKOBe5 a5zbrWfL4ML6Xi969i14 0MbWQ6K96tGjmWqZI4WIQJ1SKv8y21tcokXQQh1/9uNj9eb0QP8whv8zXOvyjiDZiUqO2+fZPrFsjS4c laJadfif1eeKETY/4ED/ 6mPjLAs++D+o7uKl6A6swCArGrDIEFRWSK9XFziOCQ24bQg91OJQdYVMhgt6z4C1ackrbpll3Shp4Jr4 6KyB2bWcoLjyZcjUo2OC UXbF81hEqu55vKKCULdbEhuyOu3CyHk5ys/0iEv9SQWv5M4omNd1LkS88JAXCeqqRisOZvvHLgB27tKV MKVEB9/8SEIu8Bo2+Agk 8oQQkajQa/Vsn9nnPXSYc1ppuxZyFml3aaqkw1HyWoJ7+mjP7bbgKySmLhuaxW3+wnDu4TqmHrtWSw63 oWLd+6oMzzKBwKU3jkSp 0KhMtQmuqt962FZQah/VIABEVkfyENJ8QO8LMsXd7MnzNiNtia3aXga+cJgMJh/A//Y+PzTs3Z4atFMe mAwpQassDAYTKkBKywMB bHxhQfJn1IZBuMMstTeeVtwmJMHGLcHDbzRQpLjvJvBc3ENZeTUcvHafYvpqYEBJIgFGctTDcEktXlZc 8GUGrDCwmAwpQassDAYT PzBIghSHwLtqZrOm5DTGpAEepFnsRtuaDIWLTcISjrEUpRcfPoWh9WZRxYU+vs3aYyZzUWxHr/++OOnz xcs5o1oYat7o09k6+joK BKJ+whsfbBTzu2xJi/a1v16wMHR1aj4V3dYrkMaSkI7Gve51yo1fzw858gm4y1kBe9IWEGy332YyqJPL lHnWzPf8TSB9779cvlwh 5OSCK7of4/C8UWh7osqWgnMw92CT1+0mnNmSXpRJNzNxuhu0w1dJxDfxnz/GFma28Owjlc+qR4+fPj/z OjSpcuuXbs+di9Rvp2aM WKEaZe/6y266zxg//1qpN2VBCOSEMAZXIzrV6vzqcLwQD6IvMnQPX2iSqLXE8CN3uYsU2BRe8770l/+o M5ibkAVq924Umna6cAYT E+ePCkk/sKvshVGru4nXQdQvYIMdZs6jKuPQhEmWE6vTd3BFYVJ1cCOd5bVfb0NM2yFfJiOcaDJc0yGN Yu749Krg5F1/ZkzVSqV5 h2Oj9GZLRBolg1/3InCy22z+CJ1N6KJ/kvSGHx3RSTO0GXrUckd+sCibIIF6mtnYPZJhYYrunM43mQvG SW+EoVCWRj72qP0tcn42 90kQ4XyTL2tOj3syliHVvHhmJOGO27dHqbCinky74dTe1q+2bIRmwgnFvjEyt60+eyh90BBxzxlGhrGV u9yQDNQ4Ipz4Vu5GRspR v/68985C5H//v179+3qAUJnEfc409jPeSlK35azUrn6ekVszSu8+V4m8aw1dyrYvZE/nPjSoOGn4aU40 nAXVtqK14TRQo+7bt26A jYmdGMzA14OIXqFRXoSowi1xB/s1QIKATGg4nYAYgxdB6lIzTsmwpNWfDqEw6y1eRisOt7Ycp7Nxc3w5 ybBWBOYt2pxUpZ796/z2 /dAdHwr71x18om/WquiM6p546ZKPvf/SFxt7od4M/Pbz58/SgU0epebGR9euCnOrQTetSmubINEkkG10 TclWsgwkHz4djMQScgf1 IYoRVaySIrJFFnBsOJTXCxVMLzbwpsHNj9lBXQpr2BKwYiy/WgiyTHhBUSUuUhGljCe8gt1xqJYPJGAL FlZWQAwc+bMpKSkwhWWB WilIdKM0COG09UgX8mlG1Zi1UmuZI81KRC6Qe33kEp13cMJmdZfr4ow3dxKRWcMJWNSlpt+20H7zec4m 3hkCCBc4JzdKhBoIeVoz PztjuHDh/TmPHmPMAQf6wcX7RqLvcILk6zXyRAQYEv6auMbPGHHYT6iksCgZRkBwL91Rv8s/Hrp2gFyN 7tQOdINR491qzGrpuaid NJB7/tDXvGsYrrJ2Zm3LhvtvBp0cGpl0oUacEmGwr8qYQd3+/ekI7ZyAmLb1UmqaWYfPNXMIGkiVd4Xj p4Aj7VW76LArcRctUTc6 26tvwIhDKVQ3TC8LJPYl7DfxkXi0m+qv0nn0w8vMpWHfOvHhqSywg//htneJFpLYZObEx8MfYu1gn1Ld Tt/++73LPoKBelT7cLYA 6IKZwJOHudZD638p75Jj4OhNUjduHfrm7d2XtOpjG1/v/uC3gO010xV8A+V0vINs8Cxqn88068XEp6l4 BvdvF6MRCGVDx4KVQiPB Fl+nngjXjBSMZfWFsloHnHij5mPEV3C9SLjn8EUuBcRdWXHT2wI1+FGf13v1q57xwHkvlhx22609xJZu QAAc+bMsThYUAtLIpFYH SusXr26+UitkhwCmkBqRpOHpjQjHe3MFVi8imaznlVkTyPkVP0podrAY8ypV0zvjbrFMX5zkaK3GIhv1 Llz+YtUoUKF/DH40RSvE NHD29EyVcUXS6rFmB4i9LMbD6Rxx5m22WzIVkIx4WrzTeEPiOxFxY/f7P8IWzaGcXnYVc3g1sf/+uqrn JycQhJ5+fJlMbNDCFnkC MXdalFPAm62Xy5jckLh0Y0HaWYw0xoRvIxvTxubl8+YOnEY8im3+vqacjRhNYUaNWoAAG8+A4SnToaIe XEMTcDbo4WlxoGFxUfg9 BHeMVGm6he495XcY+6otKZPo437FSyKY/5t0gKmK8246251n+/wAMv6NSNViiScdo8AZNOVMDHdncvTC YNNip5ayDpwIl980vwug Mv5IJ0eZm2vMjg2EsybSmDSaB528LdpeMacsGtjX56kDI2QGvXnAAZma613f7SjljCYBlJh720/++23c aYFFKkDDJPhFlcvLN4f7 xeOJkygT27ZR1OoECJz7Oe5m+u7bf7z1vnXl1EiYw95UlDn+mTc8S8H3jhQCMm9INU2hjCP8+Mv2DzpQ oLNzUy5ZuFQCcVTQz15j rJlXevk6FAgDgo3exb8LmA38S/2yjwhIAPykUng9owyqYBU4jpfOHoUB24hFHruJQD4B4V4YVKeDIElr hF9ZPobpN/SokuIEKpfv e4S8hIRk2pTABqb+s9H4W+JvGAoYaRHBq4vkfDByrt7Ul3c6sIo5pz+qzDat9TGONENbh7c1i2z3Hph4 jg17oFgtuO/ERQUZApat HzUT0g4p4k+49atW/iUFRc6wMuTl0CDshphAhTWViFYNqV9uFhL19/Uks7Pehel9F2VznylEwR1e2rK/ Llbhn6KoI47d+ePWJASx 9igqVsd0fuTaIOD3Ik7sfAa203VkGeCC7a6qSFbHb2BHcNg0vT45bgYEfs5rh3cPfN3nqq8ylVCTGTQm /ptm2k068+/FYlEPj4+j h1J6xqG75uyV2+syc/z58+vXLlichMHgJ9++whs6ew0ifx+/e0f824bfNr4ZrtEnna2+/rmBxUrNN2fI SxXrQcpa5E4Lj4wnFb8t tgqwnGlOr3f1ilKpNUTB7od7Tf1oWK/wAGErX061l4+/uDizzJgYrabRz2quiPdwdYFId4q7b71kaRZP N6JRdSGcRrxWBfnylDdE rtwHIVINkJPtVe1D94gsfJQjmGibGRd2vx//vrr/XXrqQ7LwwSl7ewY5EosHxQMEaUlycmfgKDw7kdjW wHSPxmdKVFS8EtWXA1Rx WCsY06hbf2bADHUpt11LUFBLz4ue83emObIaLqwI+gPjGwQNn82oVGd4L/VezEnNsk4OaGZqWgRVhpJo NOmoFoKb7XYLlGOrzWtq QqfrMSBEQePYwaTFzKurQsZh8CQIaIAeyEbpEg/A55RS/n0y8HPQTJKMGyLVaPaUtNO></span>
</div>
<strong>Patient Name</strong>: <span class=clinicalNoteMacroWysestefania id=[id number] macroname=PatientName spantype="macro title=#PatientName>ISAIAH MACIEL</span>
<strong>MRN</strong>: <span class=clinicalNoteMacroWysestefania id=[id number] macroname=PatientMRN spantype=macro title=#PatientMRN&q uot;>[id number]</span>
<strong>Date Of </strong>: <span class=&qu ot;clinicalNoteMacroWysestefania id=[id number] [...] be better tolerate d</li></ol>
<span style=font-size:12px><span style=f ont-family:Tombstone,Helvetica,sans-serif></span></span>
<span class=&q uot;clinicalNoteSectionVisible id=[id number] internalbreaksection="false originalname=Med Onc [...] indicated for today's visit</span>
<span class=clinicalNoteSectionVisible id=section_ [id number] internalbreaksection=false originalname=Smoking Status&quot ; recognizeconcepts=true spantype=section suppressempty=false>Smoking Status</span>
<span [facility]Not[facility] id=m [id number] macroname=PatientSmokingStatus parameters=ValueIfNull: Not recorded [...] recognizeconcepts=true spantype=section suppressempty=false>History of Present Illness</span>
<span style=font-size:12px><spanstyle=font-family:Tombstone,Helvetica,sans-serif><ol> <li>Patient reported that she has been anemic [...] she has heavy bleeding. 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
</li></ol></span></span>
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
[...] sumatriptan and topira mate</span>
<span class=clinicalNoteSectionVisible id=section_[id number] internalbreaksection=false originalname=Family History recognizeconcepts=true spantype=section suppressempty=false>Family History</span>
{ }

<span style=font-size:12px"><span style=font-family:Tombstone,Helvetica,sans-serif></span></span>
<span class=clinicalNoteSectionVisible id=[id number]" internalbreaksection=false originalname=Social History recognizeconcepts =true spantype=section suppressempty=false>Social History< /span>
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

<span style=font-size:12px><span style=font-family:Tombstone,Helvetica,sans-serif></span></span><span class=clinicalNoteSectionVisible id=[id number] internalbreaksection=false originalname=Vital Signs and Pain Scale" recognizeconcepts=true spantype=section suppressempty=false>Vital Signs</span>
<span class=clinicalNoteMacroWysiwyg id=[facility]_[id number] macroname=PatientVitalSigns parameters=LookBackDays:1,Va lueIfNull:Not recorded on visit spantype=macro [...]
[2025-09-24 19:08] VITALS: BP 125/74; PULSE 81; RESP 18; TEMP 36.7; O2SAT 100
[2025-09-24 19:09] VITALS: BP 125/74; PULSE 81; RESP 18; TEMP 36.7
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
== END 2025-09-24 19:12 | disposition home or self-care (01) ==
LOC: ED 19:06
PROVIDERS: Emergency Provider Emergency Medicine; PCP Internal Medicine
DX: K12.2 Cellulitis and abscess of mouth (principal)
CPT/HCPCS: 99282; 99283; A9270

== ENCOUNTER 2025-09-28 10:59 | Outpatient (CLI) | payer MEDICAID, SELFPAY | END 2025-09-28 11:00 | disposition home or self-care (01) | LOC: AMB 10-02 18:50 | PROVIDERS: PCP Internal Medicine; Visit Provider Internal Medicine | DX: S01.01XA Laceration without foreign body of scalp, initial encounter (principal); X58.XXXA Exposure to other specified factors, initial encounter; Y93.89 Activity, other specified; Y92.009 Unspecified place in unspecified non-institutional (private) residence as the place of occurrence of the external cause | CPT/HCPCS: A0425; A0427 ==

== ENCOUNTER 2025-09-28 11:49 | Emergency (ER) | payer MEDICAID, SELFPAY ==
--- OUTSIDE RECORDS SUMMARY | 2025-07-09 22:30 | XMS_ITS | Continuity of Care Document ---
Author Organization [facility] Address [address] [address] [place] [address] Phone Care Team Providers Care Rim Buster Name Role Phone No Information Unavailable Unavailable Advance Directives Directive Yes / No Effective Date File Name No Information Encounters Encounter Description Practice Location Reason(s) For Visit Diagnoses Date Provider Providers Copied on Encounter [facility], [address] [address], [place], [place], [id number], [place] tel:[phone] No Information No Information Family History Family Member Type Diagnosis Age At Onset No Information Payers Payer name Insurance type Covered libertarian ID Authoriza tion(s) No Information Social History Type Description Quantity Date Captured Comments Sex Female Smoking Status No Information Chief Complaint And Reason For Visit No Information Reason For Referral Reason For Referral No Information History Of Present Illness Encounter Date Complaint History Of Prese nt Illness No Information Functional Status Date Functional Assessmen t No Information Instructions Date Instruction Additional Infor mation No Information Assessments Type Assessment Date No Information Patient Care Teams Name Effective Dates (start - stop) Status Members No Information
--- OUTSIDE RECORDS SUMMARY | 2025-07-09 22:30 | XMS_ITS | Continuity of Care Document ---
Author Organization [facility] Address [address] [address] [place] [address] Phone Care Team Providers Care Associate Field Service Engineer Name Role Phone No Information Unavailable Unavailable Advance Directives Directive Yes / No Effective Date File Name No Information Encounters Encounter Description Practice Location Reason(s) For Visit Diagnoses Date Provider Providers Copied on Encounter [facility], [address] [address], [place], [place], [id number], [place] tel:[phone] No Information No Information Family History Family Member Type Diagnosis Age At Onset No Information Payers Payer name Insurance type Covered democrat ID Authoriza tion(s) No Information Social History [...]
[2025-09-28 11:51] VITALS: BP 125/88; PULSE 67; RESP 14; TEMP 36.1; O2SAT 100; BMI 26.9
--- OUTSIDE RECORDS SUMMARY | 2025-09-28 11:51 | XMS_ITS | CCD ---
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 Name Role Phone Wiliam Moore Unavailable Unavailable Allergies and Adverse Reactions Medication/Group Name Reaction Severity Date Compazine 09/19/2025 citalopram 09/19/2025 sumatriptan 09/19/2025 morphine 09/19/2025 topiramate 09/19/2025 Care Plan Date Type Value 12/20/2025 [...] Group Identifier Payer Identifier 2023 Active Other [id number] 2023 Inactive Other 519 Diagnostic Results Date Type Test Units Lower Limit Upper Limit Result Flag Comments Status Ordered By Specimen Source Lab Address 09/12 CBC w/ auto diff Scott # (ANC) K/uL 1.6 6.6 5.8 FINAL Wiliam Jain [place] [facility] , [address] [place] [id number] 0 09/12 CBC w/ auto diff IG % % 0.0 0.5 0.2 FINAL Wiliam Xavier [place] [facility] , [address] [place] [id number] 0 09/12 CBC w/ auto diff MO # K/uL 0.2 1.3 0.7 FINAL Wiliam Xavier [place] [facility] , [address] [place] [id number] 0 09/12 CBC w/ auto diff MCV fL 80.0 104.0 88.7 FINAL Wiliam Xavier [place] [facility] , [address] [place] [id number] 0 09/12 CBC w/ auto diff IG # K/uL 0.0 0.03 0.02 FINAL Wiliam Xavier [place] [facility] , [address] [place] [id number] 0 09/12 CBC w/ auto diff MO % % 6.0 15.0 7.8 FINAL Wiliam Xavier [place] [facility] , [address] [place] [id number] 0 09/12 CBC w/ auto diff EO # K/uL 0.0 0.6 0.1 FINAL Wiliam Xavier [place] [facility] , [address] [place] [id number] 0 09/12 CBC w/ auto diff EO % % 0.0 7.0 0.9 FINAL Wiliam Park [place] [facility] , [address] [place] [id number] 0 09/12 CBC w/ auto diff RBC M/uL 3.9 5.1 4.78 FINAL Wiliam Park [place] [facility] , [address] [place] [id number] 0 09/12 CBC w/ auto diff MPV fL 9.5 13.4 8.5 Low FINAL Wiliam Park [place] [facility] , [address] [place] [id number] 0 09/12 CBC w/ auto diff WBC K/uL 3.0 8.9 8.6 FINAL Wiliam Park [place] [facility] , [address] [place] [id number] 0 09/12 CBC w/ auto diff PLT K/uL 113.0 364.0 289 FINAL Wiliam Park [place] [facility] , [address] [place] [id number] 0 09/12 CBC w/ auto diff BA % % 0.0 2.0 0.5 FINAL Wiliam Park [place] [facility] , [address] [place] [id number] 0 09/12 CBC w/ auto diff BA # K/uL 0.0 0.2 0.0 FINAL Wiliam Park [place] [facility] , [address] [place] [id number] 0 09/12 CBC w/ auto diff HGB g/dL 11.3 15.2 13.7 FINAL Wiliam Park [place] [facility] , [address] [place] [id number] 0 09/12 CBC w/ auto diff RDW % 11.4 16.1 13.20 FINAL Wiliam Park [place] [facility] , [address] [place] [id number] 0 09/12 CBC w/ auto diff LY % % 14.0 41.0 22.5 FINAL Wiliam Park [place] [facility] , [address] [place] [id number] 0 09/12 CBC w/ auto diff LY # K/uL 0.4 3.6 1.9 FINAL Wiliam Xavier [place] [facility] , [address] [place] [id number] 0 09/12 CBC w/ auto diff MCH pg 26.0 35.0 28.7 FINAL Wiliam Xavier [place] [facility] , [address] [place] [id number] 0 09/12 CBC w/ auto diff MCHC g/dL 30.0 35.0 32.3 FINAL Wiliam Park [place] [facility] , [address] [place] [id number] 0 09/12 CBC w/ auto diff NRBC % #/100W BC 0.0 0.2 0.0 FINAL Wiliam Park [place] [facility] , [address] [place] [id number] 0 09/12 CBC w/ auto diff HCT % 35.0 48.0 42.4 FINAL Wiliam Gaona [facility] , [address] [facility] [id number] 0 09/12 CBC w/ auto diff Scott % % 43.0 74.0 68.1 FINAL Wiliam Park [facility] , [address] [facility] [id number] 0 09/12 CMP Alkal ine phosp hatas e U/L 36.0 125.0 54 FINAL Wiliam Jain * [facility] , [address] [facility] [id number] 0 09/12 CMP ALT/S GPT U/L 0.0 34.0 17 FINAL Wiliam Jain * [facility] , [address] [facility] [id number] 0 09/12 CMP Calci um mg/dL 8.4 10.2 9.2 FINAL Wiliam Jain * [facility] , [address] [facility] [id number] 0 09/12 CMP GFR estim ate ml/min /1.73m ^2 112.0 GFR is calculate d using the CKD-EPI equation. FINAL Wiliam Jain * [facility] , [address] [facility] [id number] 0 09/12 CMP CO2 mmol/L 22.0 30.0 [...] hour stability window. FINAL Wiliam Park * [facility] , [address] [facility] [id number] 0 09/12 CMP Gluco se mg/dL 74.0 100.0 72 Low FINAL Wiliam Park * [facility] , [address] [facility] [id number] 0 09/12 CMP Chlor kristi mmol/L 96.0 107.0 107 FINAL Wiliam Park * [facility] , [address] [facility] [id number] 0 09/12 CMP Total prote in g/dL 6.3 8.2 7.1 FINAL Wiliam Park * [facility] , [address] [facility] [id number] 0 09/12 CMP BUN mg/dL 7.0 17.0 10.0 FINAL Wiliam Park * [facility] , [address] [facility] [id number] 0 09/12 CMP Creat inine mg/dL 0.66 1.25 0.70 FINAL Wiliam Park * [facility] , [address] [facility] [id number] 0 09/12 CMP AST/S GOT U/L 14.0 36.0 27 FINAL Wiliam Park * [facility] , [address] [facility] [id number] 0 09/12 CMP Album in g/dL 3.5 5.0 4.4 FINAL Wiliam Park * [facility] , [address] [facility] [id number] 0 09/12 CMP Bilir ubin, total mg/dL 0.2 1.3 0.3 FINAL Wiliam Park * [facility] , [address] [facility] [id number] 0 09/12 CMP Sodiu m mmol/L 137.0 145.0 140 FINAL Wiliam Park * [facility] , [address] [facility] [id number] 0 09/12 CMP Potas sium mmol/L 3.5 5.1 3.8 FINAL Wiliam Park * [facility] , [address] [id number] 0 09/12 Iron profi le Iron, % satur ation % 20.0 55.0 18 Low FINAL Wiliam Park * [facility] , [address] [id number] 0 09/12 Iron profi le Iron ug/dL 37.0 170.0 63 FINAL Wiliam Park * [facility] , [address] [id number] 0 09/12 Iron profi le TIBC ug/dL 265.0 497.0 353 FINAL Wiliam Park * [facility] , [address] [id number] 0 09/12 Iron profi le Unbou nd iron capac ity ug/dL 75.0 410.0 290 FINAL Wiliam Park * [facility] , [address] [id number] 0 09/12 Eleno tin panel Eleno tin ng/mL 6.24 264.0 10.70 FINAL Wiliam Park * [facility] , [address] [id number] 0 10/09 [facility] other lab See direct care supervisor d Medications Administered Date Name Route Dose [...] Body Temperature 98.20 06/18/2025 BSA 1.89 06/18/2025 Oxygen Saturation 98.00 06/18/2025 Body Temperature 97.50 06/18/2025 Heart Beat 77.00 06/18/2025 BMI 28.18 06/18/2025 Intravascular Systolic 116 06/18/2025 Intravascular Diastolic 80 06/18/2025 Pain Scale 0.00 06/18/2025 Weight 174.60 06/18/2025 Height 66.00 06/18/2025 Respiratory Rate 16.00 07/05/2025 BSA 1.89 07/05/2025 BMI 28.08 07/05/2025 [...] style=text-align:center><span class=clinicalNoteMacroWysiwyg id=[id number] macroname=&quo t;PracticeLetterhead spantype=macro title=#PracticeLetterhead><img src=data:image/png;base64,pTTKZf7BGijJTJNVAHbZEqPIMVYYJORWVUIVGNTfQlJ3PZRCSQASC 8RFbe1t8USSZ FFzSE1FLXAczrp1NFUBIUACyHtNfeEERpRPSG9xAZxmX1XCRHbQLTUCESvq2E8VtQLN8jiTqZbc8CZfx WvMY7IqQYaiU7ebDpSPv gJlBrHg9V3MqtFH9giDd2TBvqoH7KKeGiWOzbjqFG3O/bC0EkdRw2knaCT44XqjVtUkR81PV5rH890al 1Sc4NEzb/FaZd2DBsIUs HMcfNNz3pQJLtekenBkeLlPQh4KSTi4oI1MTTImnnDET/5fXEihNrQp4tsVyXb98jrJEF8X/I56QuXhr cFCeUvks9f+vi8Sqj8nv mp6OmSn9ypa2jM7rlNFg1IlwrPWHw5lK4R0YKdeSMG09aNw/vGnZ4iVzvZRJ35TXC3JH0AgM5WttBmoD AWXRwX82eDtHM4utIPq1 k8Kb/n/ddVRkky6HeHPyhrkyvBhoKAFl4sH+mHTUuaHemk2f699uuz2FY3CXOJH2jEEgTY4WC4yfUPy6 k+Y6eXsLSrq44Iu8/TRN 13ILl65Mn1fNZr5JTlQVyxHNp5r9daPUcayrFMy9w3rCQgw3vVQt+c9iXgfnxMCUugUfxxNTuH4UzKDe c48gJvpVaDtW6HncL8G6 ytrvcjLDdW8qLt+lE+/QWShlCPD8r9SnZZ45k3XJ7B+CSHOc0pWzJpAIbbaNHEGdQVY4Vf6hwxnSCfUw Xa2lmAWc1tk6/xr4cw8C kcPBZI3nVnCWjtrrmpui+0oAYtzRPgEdhKQsvnkSkh6T3i+8ymd3Uzp4dA1EAnw5UBu1issMg2A8mvuX aWlpRIMIkds/Gd1f0HwA MY9YOqo6mOTchMYkEJj6MPkHo577Hzo6HWa707/Q8JDkOsc+XmduWT2acGWv7v+dmizYKWP5xrqTn9B4 Oz6TjA5L+dRv3z2ZzAER 76lCeehQuMsOx3nERew4ZGh6iucg/G6PBfZTg+DWxWLqwFPo6DBCgYmeRzOxXfJEb5MfmDDGb6NjXd2q OHCRTVBHMIWHgkJiea++ +89TOTu4dc1SscaaytYCYYOWxOG/K2QX1kgUCMiyCyuQW3KzoqvCj7AB++f5IdzDP03mRSWM2NnyLAgr cAHy63qH9044I1i5bUgB 0196rsuacSI9WcuAx0g9qCHE8wR2mn9aMAOoGj/JA8GNlhUXZrKJ7+Us+0biQCQj3gaHOembhYo2qS/4 0liumGjoDY2dZ921Qe/M 7RUF5bBqxgraDP4H7odQCE1qUJu22qc7Tt/bmmUe1wDpNx114iO8UvW5vKIPyAEFONkuzg9bPARnWb/E W9MlmhOBl51fKxzK4iRS FaKrwh2xbSJC9wOJCyxb09gXrBkQTOgQSKkzIPJajCPh244yVMv3+5gzyS4ryvLbUwe/L7/p+TChQsXL u9HUWOtqlQneq8wbU1/w lZNQz6xFC6xPjZw+miPsd4PLgqEIL8n2UvRLzQDcM4nknO/+9+nIlR09GWF8qIzd80Rc2xLTJjGgqDCC Nph6mTYF7BvqZblDnBUI XRsdO/ew+Tk5JR/2sYEHw7iGwOjYvShbt8mXnOixA5jr+WXNHPR+XVtpn/uueeazTEEBEKJ+MuYsWPLj 8EYPUv5dyaujUQIIT2Ov HDhwoWLPwazsSrWrVtXzqKjY+UQwZN9Opq6+VPcsA7ELZcla40xGGKgzo+6l7aUtxwI/LZCKujXbzxmx ZUyJYt8wqdVxm766nter 6/8BknT32Hni75bliF1Vs/8cUeAMH/GlInLVczSYtBDQ5mMwEVDHbkRsEyfH/D6tdfV8pFqed+UW5355 s0fcZWiWheyk+5iuHny8 xeunvNbt8dvSd9Tso84y+c7vteIGDpNrs9yO7nBalUjgJN83s+e5X6ny7pzgs236LjBSgcsKJs+/DFZu 67lzIZIIycIlhoxohiL0 ePNSo/efZUBVa0z0O4xXBUrSuarfSXOBA0EuZmaf3+BTg3DVF/541Odt2EiAo9iJqhujA4UFOVsurecG 8TJ97hj0qpMIHrMUJErX Oh5mlIydLuK9aZ4H5jAjfT9B5+XlGn3JimnbjaQUO0TanIkOczCFfcFszHGzKHSMMIMpq07pvDDU+WAA w+UwMeuoa1m/z7a0mGRX roCxIULFy7+DWx58LNZMKzmHMO7+DPhcFwNbTzfvqenKzWmTRr4yjeEWks0/kLk75ntougXN19CtS2kn aysLDNt+oydrq+Mikp95 bmeslSba9PRKghVRMne1kqDseMb70d42WEe88txZmTr0yevskJwb/KeBrC9U96/onMGp3Z5GS/gwoULF y7+PJmjg030D8rHEi951 CsnpxddAtLm62uT0SQOEVjP0w+A+JNsY0PvZNGhsTxX3JlZ/Y8bkvk30sAt0yB7/FaZgecLhHNJKD7x3 BGuCTWa87M69nv9r5heT JaLgJZhLRrs6N7XrhPKQtMZuLNS54OYoLxhghYwOleCsRvgFCWKCxbBDnriUOrZbEJq+oUX/4RMEcCe2 LQBL5r9+Omz00ilTGQCf PsprHm5hipUTNltwEu7HDwsEQsCbNa+qzhnd+mJEc/aGVqX/nCI0kA2eM6G8bY2FYkP1yy6NKHb2gP1j sw7Q4WEa7lVmejkF3DeQ gHKWRitXZb1OXvPAJ3JKqA6A4cuBRnBZagQk/WdlA4u/4v9MkoRfXSjk0XHA4zj61mKa79AELfJfALE/ XVhoEj88TiDVkGa092ej ze6cSXfjyam7x1RQe3cdDyEYxC/PK5cmpMPsZvN5cpK5II22w4JtIDlzCJv2/2YyOomJ6xQbj2tX+xy3 brUz9vSJSVTl9FUSWcl2 GBQeH4uHBssB2lbsyE+WhRHdbboyeTWjxU82cc5qiXOie7t1DMTD+6fSqxoTT+xyOAeAxlLYbW9QfSP6 S4sngFmurifhU2MBraed F2FHBMcw/uDU4jwPn0idP3MA7hkIZQAVFkDt25Dha79W/V7CiKXobxsN1Fyw7aOCyKw6MkDgs5M6QykS xvLo+w5VPOodGwna/ULl MzvD70mISIvk4JT7rr/fj4k7ZAcJi+rgYQjHBCvZbXhhVRVVKUwN747Y6TQfJv4hRxbYLcfGEApC66/1 Zz2r/8sVixNJz9+sdlS7 N+TYl0Jm6zH5as7lHrOced2jh1P4iMjteou+980Wy4fUlYcuZt4N1RIvn89j53k6R2vaB0CkI8HstlFc zuGNmTln0At5o0VQNhi4 U0PuVRexK1CtNwjeeRDK9Mmn90i7PtpLVURakFxQbxxluTECikSc04By2Pb1haClhzin+JDltuW0xejW 2tW/hwKQf8PhLyrGP5UM O38wbTkuoj3aqqj/29yrfdjXzmrlOu4u17uvK0KL4Elo++jnvfKC+ObBiCH9dsQR+Amelia++U7DufRDrCq VxRMbu2jSFZHmTZ1Yk6l bXbNn9yRzobcykX3dwLM/7fhYvaAvEM+qkDPlvTQXl9c9vEcLrg9JDlK85pLXjjgzg/AOsQ4mmxmfMi9 SAdE7cMIy9RHJUb4lpm8 jUv7f5y2xpm1I/r7QH0EBQb5mYyvLvL/ajmsu5OIjMTRsk9JQqIbTNNCIHRcCwu189+43Swm0m47FWjc i0HTprFdlqI0tcXdF4JW pTcSDUBL6uJGoG5jQwkvHAS5pwxuvSMCIxmOej8907ZBip64ePHZ68/deS2SBRCCZ9S+iiHKrnbJriw4 TBVdvM7+8cCA0g9Ts3GN ByRiYjPYDi1v2Tqs32Uv7Ij7YZVxrcvg/xfUj0bxx9D+1z+b/t2zkQaF0rC7362BQrb1LvtzY2VXVBUr 5l25zj8fH3GpHFCQ3KU/ /cErICW7+8af0lxCK/qcQSzw6zvCiF45h4XVClTVirdkSD3qgYYAaocg8o/sw2ws+dlI1UKPd+jAt8zq uMpIulIOycZ8D1RZi/py x7yF3CNPCDXn6rp/O545URKJll3VtGkDlkenY6kW571Kwc2ZwwdTfcSNv3/r+ZEwarorwl6aHJtiFX1L KYeSvjuOW+OEuWijrYoV Egago6QvaTbJtnYwagZVrYhDo4QusoAjDX/HX6KUQwYBMIfdmQLeZ7t+ygurBXH+7YXCMv5VdDXuwOrj 1gPT3tN7YYNz5GrJVpGn k/yAKY845JDqedWUD8H4kOjDpTyQSOlVl6B4yfVyW4UsJGkg7GW/ZK+m7flKbR4CzzhUe00t2gga0P4S oRAMk6g5/VcjQJhJ28/K LWdgU6j/j2F6uh8bqmNwbE19n0CevCkGJxr7Cm3VmbOC2At6Yt5I4Vg8WAO+J9CZWwxp17fwnKpg2MeZ qXXv2/WePC0JS9jDPT/G /HY/+gnCi2fzHt2BKdtsaaeR6fjD4XPv/wNLIyvTPh9MXPisf4Pd+055g3JDTyiP6Q/Db70uzZy2VwrF JlYCUly+iAfHwa8G8xod QsZsOALRj2hHWCNb1bNUWN5iWfDjCNpVHUXKHihXpYJVUL7KWwVpTinUYBUVn8BavR2KlgujiJOwuvri RSSyCEgjJiQSafjXgRcs BYiPVAvujGWy4kcJm2cQoG/kvH4NseGlrrGUWpO/O+a8XuU2Se2TYRUyamrvxfjpzhfsrRvqAr7Ly8Tz de5ZuSZt3s04Hpp6xtfD FWLI2MNwwCYkbhjKVYqqA7TJhhLs2Ifzyvk/G8c2SfzZ5LSGJlPaXxCYlRtirSWFwxGwDa7PG7nGWS4I TZ6nxo9+Ju/HGP7AcQll F7GzcGTBEuPXPK8Asmegodd5083Q0GaCDzih+F+w87hmBARCrEjWXSO4xpvXo6XeVKaqMhYIXrrBmqTq 9i9mBERFsG8imQeWbgCZ WAydAJCOxa68U/3eomPF3ylmwmq3KpUcQNPQPDYYCRnC06EbqlxFRhgZUowENyfqgerVV6NR+MdZQHFM Iqefs8q8v19X+zq4uea8 zssqcMdsV8GF093mm9WPX1th5jfU46l8nxS4bA2BzxLYNmXyJ+aX/BK2hyqm3KgbkJAqzpdLK0xyOiK8 39o7rr/YZOUnGwe/mCRG bV8/X574dZS5tRxcZDeyrOIsRm7SAzSu6jDpcHpGIVNsDyiGG0toN0jFFfvElHBmjvrASE33EYJcEa5d c3LXLGHswmhA/oYFYcrO ckCCCbeIxY+MDWmxfIJWetHgLXHyPTkBEDcXos6YwcySPN6TZFyQ6DZNEOr0i7mPc1DrfELmjtNu5PhH EEHCeOWELgY9ZgIcHG1T IoUhGRLEnHG41ON1Ir+z54DoU+56PfpavVvAF3XkWiAb96KUEzIbf3zkzxfybkX3MTkBwB3HdJHv6Abf 7UfSsWvSgiiWOiutFkJJ ZJIOnxFPCQLXMMkGj6XlxLci2BuJZnCVcQlODEkPd67JNWzBCDX1+D2ph/PK2mhSo1pWCgbhAtzTk9ms 2zMCZzmzai11BLDO5yW8 lqBKFZo0a/ba9Se9NTCyfj+w31h7x7yH/e5RF4Y/Dvsl3p4ZIzwNfEDiVe8KmNzRsSQ1SMh+VLlxmvy5 ZssziXeczcM6Jzrf+PO6 l0PdOdT89cesOeGg8Dj6WXjCTQ5ccgZvKGDI13jgmMG7hwEtnEoEy/cNTQ3ANvmrmhMOZYUw7QEk1vZT mWDHujZK68EIECxJzZA9 sUdndnHPQJ262UjyhO7AqpmNjG+dEcXCmz59jHHm9fzNlpo1ZV0leSqj97LDDA6mxwENwMwZd2g+f9wO YdJuL9XZVguvFQK6Z8Y3 bwGOxfiFkUmzQe6of9R4O9V9smFI3LQyvhQEUzUx5ZZfH1s/BJC22gz3obDNVfCRkoh+N4O9haBjtT9Z aJ3ITLLFfwyZmY2R6czr twEKeAuUMACArmwmKY7sAJEVaF/gOZuHkL9YxLsLchOUw3yvag+sSwarqr8VL+wFEncPyKiRX3O9Q7qA GBQ+s7NUB8mZBfLcqrnL zQ4VwNchJDjBHWufGuT104nWu/2Jim9yuj44u87gaw7oHcKSiWBBgVEWcctGrW5QkwAaBji/ulGYwj7N Eji7BHiUcjKaEGMzRYAC eMdCWiIfiIRCczaWOT5Q0GhsO5mHNs+WT0Z72kIVNB8GlJEvX1B+VUwaBrFkpSYJJUzMKs9JQbV+2Bdx DGpHPPsDQ5XzbP2EtJBp B3veviTqaREvfasO1XGmeGahym/fGiZmhAYbzBX25vASt1zP0CnM7zPEFEIVUQJTlPFiypHtNUmdIMuy eLmlAWyKAxZY49QF2GPZ CKKxyyNoH8jPEL/pXj9/lLvmPMGhDdZyfWvTsI8YHiBWda6pGDDoxT00/I8dXPunI1PU4XKl5SABlP+a Faf1YttaTjkqCCXuqhjy reBYlBBFlfKNINHcjcgYlkRG6kLIjiMT9uQkQm2XyCHXQuN5pIep7K7tyUyz764FVuIvgk8I4ebnhL0y 8JH/po4NFwTOtBxpQ15B 6GxkxWiV/kZ1VvBgWj8UNB5Zk4dAU3SPtXkXhWWSyB/7M7S3SaTLS0FSODJCDuSOw9xNAEaGnjwL7bTX fAN5cyPM9RdCRrGOEK3P rTGROIumjFswoPnBqRPaHm4WD0J1vktrGwhBZ5WNmPpIjyQ2xFcbVlfsAs/lBAeWIjcF+KJl9IhzkoZJ 9tetJySiMyu7E3BF5uSV lklVGfwEJ2QSYr3+tXgpRx3JhsGP7zP0yePJcwQ5hiEl8NpeJbpz+3VhjglbdKoBxCY5UdVrL4e54Vjf PO1YAEnZELhjulKsKPtC e9wLHv+36dHEZPVDqbE2CcqbOj/BoZXV8NXKklQ2BZPfvRyC6HyD2GCHlGa5HeVCMlfwLBNJuK7L5iIO EVFKTLgmjJpfUBHSc+uI +9Rs51Exr1gSnfEUbjyB3BjKFrkltKW9xBkj2mXzcvnJH/iKtD0SON1bbXGlEuG9bpFeKbhL2+WhymIc RueEORqTc3iMPglzv5MA 0mccYrNoSGSG4yZRNUYecTQ2cJ8yY/DjSnMT1EyHGQN7s0bII80AcXGlWsQ0AddPggJ0LUsAX1tQxthK AMJdw/RFpVZwYBzcD/h3 aXyI7sukl9ny4D4EzlBEre/gO2otfWQ6rjPKdh3yzPNJefmueRqr3Y74g0FORjPHtzQ9RXzRxeqI9IBP MnGfVXdAxGL6cszmKxj1 FtBmzcVY8eTQMAN3SquA34s8KjDuaUrHUWX9aDaiGPIeFdA7KpJRCiYhyerVIlgj7M9/GodaMvsBSotK TCk0S2hzMrPiQeVG53TG VuSfscrE1vXrBTvYlijzcj6ZJPagq1aZrM2pg5oIwdJonbR4fiChYuGrX9WNH6F9vPdYzsBPFx6AvUHU eTYgSOKORGYKjzX5dckO cABgpjoX7yGJA8CItZB+2XXu6uA3ZzfNXrT7YFO5H22ObuJbbkzdekyvGyUaYNfwIsKOgGwEycXrtFS4 KM+agpYQOGMHp/77gA/c Sx50E8GDnnL9Mi4CzdW6Rblv2DRQBbmV+pLtesiVGo9xCkp0bZIzOXg9Xb/dm4emY5jmOSE3NeJaYLGL HkxuaT9yS+DX69rSlEfz GtkadifdWuWAXHU6IxJU8qUfvkJ8vx9Jn4MxMtkNxtg3N7pT4lY4yEotSeCxnw3inegbPJq643n/Zsy9 +rwl1ytjzNKEd132mhXw 4NXfVWcb788yCpOW7n/TzOZ/pbk4rLn+cO2TsAy87Jm6oC6gTdiB0Ni3+4V8mcfxC1Pt8Lzt1vPuA86i vyrAgYNLhkGMJYRAzgaw 57OELSI0/h/ltRFXNvIjaqbQCRYYrJCVTLcUeYLNYX0pUtFjeAvINB1dOF49aJtK7GsajPaVWonYrIzU dKBTRLSXsEcKC00FYrv4 K5CHbLtwwaHfQsotRue3RU6n07Nxs5LfbXUKH+nzDQ359qrxL0Vah4pi+o7mU86CircEX7874ZfQFuUe aXLncs7k1AGMexbAOz7M dhnv5WKuVbm75sLuKsH2CytZS2KxMEQm5jEt/Ks9viZVs/tQ9Bi1ydDzn5C6wEXrwpP3jxNUBw8XQkDq Jb8/OL0fLzQknnQhk1bA hOTpMfA6+NxgyHs33cY1vAS1eCHob2xD48oR3aI5MHS4X3yDaq2tTGrghQZX4OsTM41gByZTEgidKd5b 0W8l2IVIGkjeBK1PkogY oZU0368EvGRnRWiK8yBOK6zbGKmptQhaRc2M9dThVezcd6Z53LYCSQwAq8CWEtMtS9WHbCwktrFhoISy uw0yqeKhBZml76DKdoTQ LXqAneGA+h87XpyYslUnNvIoGspiok+yGszj8LdIvUOH13X/KxWbwnNBevU5sOkIdCBeQJP8HS82HFWn QKQMLtzkF8hxGYXLQvHt OZF9KVHTNDrlzJKTLsMnl251NVyKMLVDTCdp/7+ZFk+bOOEGp0zHTRVY0+UQ04+Q5bpyDwqhLcuykF5a U/YLqwVSxfbgfTwgHttU Q96exLl5Fdj7HRZyWs7/5wDi3K4dPx50qwVgWb80omhQbGXdqo52q65i5v3IyNUqmQDbPquSoDndL7Qo RyuLHoSLwZvJ0TPIOVcO IbQxyhYAjHSOaupOSXwRseOXeOufpFVM9YhWK0PWQbvbNSTYqm1uc5h1TxJXaE2haVnrLAOVN6ksrFPu SaJByHXlxbzjVdjv4vub neLBTTxRrLohqhVjBjYMu05G8H98z8zZtXydIs1EMxKy8VVOjeJaChdDukqFC2Qahw+HakvTcPm3d41F V51lOJ8YuKJ8NXdjERH8 zy3CGxzLgVEBcEsK0JpFTEqpYDFukQB5MAV0thUYGyo4qHWBs7eYHqd71jlOwe1M4lquuX3EeXGTmVEI snfskkOO/2sXkwmhDCE8 GlQ5z1lmOqqjCndhOHkK7typlcKGwK7SJqTpnxfVAbsczMeVMunNnCnOBXPYKLMM+Xg08+WVGRxS5OGW j6fX2Y/do98/LFj9sXAD PM1xYpvA9y4L0afP8gXzE5+J0QmSvbWLFXAIl47ZZWJv6LinX3ZQezptP7EdxAUxH1xlOXaT7lkKjn29 LEC+McqqeYIy35cgx99V V10NWbdYtVaosC4oVXrR9uktnzT2OO2P3yDleFZCEqpua3lNPBEXNiB2O3RUTwkDBTo0yJtfRQvKAZpb nP4iHsPl+GtcMY4dAwJr yxB9FWFNjsIHLIj7YtBSINmLHbADMGpxRLbut0Uqt/MtgCUrNGq1CEFA9S7VWTR1kXE8QHfrZQUo3C2M RWGW0nhqmFWIQ7brRmeK s3Sjodv8bj6w1v1a4npv8aQsc9Kjh+xBt6of9STvj7AOg5Ms7LykRsp5stJASfKa4M/Ve2A51Su1h8C2 qycE3oJdQuDLhmo3vudA XJrqZ2IoiV/w5cxyxhi0p79cXw5oJ3oiCOArcohVrVUsblIHJqQXLRH0pG1SVixLwg5qYvFbgDUgpU8e IMoR1LjY24Gy1KIi5yPY OtqDuDEmFx9kJo5EyCP1LXcC4VGhCHgdv7fdGtZfZXGpx7EsbWyXLzDIDJwjKNFEGoQ3od9FVUP0lDji moEuZszjLtdd5uj3lM50 Fh5+miRjtsAJr+1LJZEvXcAMRahW3PAYEa0LfN6KA0WU2qDO6llTkiapOgwGsLyufBjYrPIy8Xb9zrdE KGoPVdee6JDTDBDYFTvF wksm3qdxQG+FV2oFR0g4UzxlA8Sm/etTMSIbfcTQRmnrFE28ol3uLOVcpE3SaOWj8pJP8MkacUKqhTyB MNOR3BGU1hKaCxfCVZeh 7ZsS8juFtxh5031/4Mv7rX0m7CP7C8lFCnCCzkHpPBg4Uq3BM0AOp5gsaZS/pfIss8/UaavVkMNUSAYk QZ38K9FPrixH/qGeHVSk 7hlygyZuhMW8rcYjT6E/u/O62TF/I/oMPhX+wu4he1ZypP0MLeCwJL2diNRsxREgZxjTWQAxZN1+fEGh bZGU4UKlkvkyq2ZF8S3p FPWyXgEzoDEIPfT6mf6XFidbSexNHc5idrBkB8EXaThOTZLObH5Y8EydUerBHOGSQjjH60TLgpNCR6F5 qajfh5rD/avKnLOWb4Vh JD8cEnwU1w6CZyoVs3QhR6CTG3Py+GcUdH5zLGTIIRsvHURlJWcyF+cjTJn9i1+WYOi2qdjdNpvd0os0 lpTCIO8RwRemBXTq5IPL Br1kwbF0KJd/AMzHhUMmU8Wo1Y5z5GgNV7YlnWZb0vMHu2OShkz/x995rBobYXMxN1O5n/xQ/zNeFK7r 8oB96S/2t7eEPN0ImK3V irbldQ59QFwGA5XqrrHLUkqkPD1SJW1lUcJxgvSCYS8RxyugjdRL8sOotOYe4KedYDi2VJXWfqgQw2y/ gZUaSkMeZibuhYq61J4L N6dbwVrCwlvTxWI/9z9Q+HW937Bv+9tIB3a+iIp51gj2OaPgY6e8p0vNvtU8cGeWCn54L9cDiHpMcRS4 KtulkhVQCobbhvHDGYQ0 mhIt/JwJae7kvSSTEWaCe7ANZABFgELGSZMnSdsfsSUGMpPOfLqTVTpLDwpBqsWqxUwnBSXOGYyzq1CR A1Y98ypSiJvNcAsjU2Ck PJNE6FwiDFHrIbEhfT1Mk7GclammpGMNf7nhH0YA8bvEX0ItDY2M6oJntCOfGIsDzvzzKxqf+RC33OMH LlEMpQxNkQOd83TlV3UK UAOZ9bLQA/eqfE0IN3S2y27zOOKLwAdqbXMEgAvWXfoEr7Zb0DWNbp4C/WWC7E3fz8L3xEm0wXPwXHpF HSGPPtPNdVBVeuwlOO6H +4L8IWhAeqEXRuferEHuw6owJQlNuxcxoN5m0ouq2E+ID9T6oMSjl1FnyOdGiSKwrdzP5KufPDHm8Y7Q q8Xa9CtrMawSgzS66aaY ga938oqDW+o89ORc1KVVKixM+IKW2Fs17kRVaoDfcWQHJ7ApqD8Xx+I1vplTKx3BtreazOEC5I3Sy8S/ 7dmhHhdh2vSwvc4nILM0 tZZBBejzJTcOb8LVpCn9Gw0Cn7F68A3uzX0NL+jXYkrOkKO+1VqnGEzRjZC9QwvwS5fFwUZb/Ap2pS+w R7GhnglKPZ7L9L0FmZk2 0ddcrkse/p7Zctpel2NB5oDT9WJCy8vZhrLJg7JTxX2mECPE+8ufGolCr9lSyTpADIvybENOrWWDawjm 1HhMeqBe+TVkU/J0Dsay Z23rJf/DKonr7+fLSe+EGTnRkXwaAGdw2aXjS/L5l9/syVkW2tc5d26zUEjVRaAs0W4NmluKcdTkedAm rJzxzXpGeKTPxT0FUJNq 7a9fjEYatxKwxsAjmDDNDLaUUp8jfZxB3AlDNjgoLdiS76UAsDMdA14Uv1dToArci0MkNybIC8tdAJRh 6c5PFJktNsKeSF/g8LR0 ptIbRLJCRz6496hLnq9ZCTbh710UWpyJhBjRWpAdPzQXoUYQvDpMHYUurInCZsc3UIVAnGPYMakWPS8t kxKODHlhq5h0Wj8oLQQY eLhnN5eRvZyEL91bn+0V3m7vCHrLZIY0VStoHoi+m41rL5Gt12vZwGiv87BHz9YwSZbV/BOTw7H0XJa4 EYqTRTJpJuzngcV9VT4G ghJ6PoD2q64ypaT+ca8PdRm5TdMZI1A40G/rET4PQNpJqTDSSy9Irrs8KhjP2dcmyZtzp6m0utzt/NO9 xzsfiQBvGMcNfyymn1B8 5Pfpk+Ojq9VyIGpYKlDlIPVi/hm4cVaxsBtcxLj51CnhgOY+SQFwEr1m8uYB2wPbz6tVjCBAXRuroy/P tdUvNMjoguf6JMm0gSgx kzHCPPfyGR2mP/3X5fa62uTfa8jA/mUleNxxduz1d4KezEhgRTh0Qxr6k8IhogtAMKIZe9zwLXjejDHW 4B8tE+3Aa0DRu3NWf9tb PTXH+U1qSZo9VquQHxk/gG/X/QzvbvvmtkPN0Ob5Q/puGkrEuBtgD6EzxxcQqu0T1OMnYoY+P9KpQIpi 8humroV73Obqo7PYd3rZ Q8mOkBTx1oNrXfbsk0RHm9Z+b51TgPsl9ud3d8EKYveNzFtx+T9y+xVC/B5x/BxngRaplRHYXC3hd4e0 X7/6HDoqJAAUdnBX/uzD N2onWXyk93BnaluYkrdwz5Er4nlibSW9vcEwdPyXH2zjZF79hT1pzZeTLREXklG3pd4g1za7mxwOoGsB AC3Cdrou4n84v4pD+SXH 5qd68x0re5mGEQwF2LeWlZ5/r3fxauXDasNzpjNQCCN6hgrR/bq754Fxi/rLBEruIVvssTeHT2FWI4kw J5HjCLEXOASpvkaPqgf0 tOD8rltQVFs5w1Y5W9w3z9uGN/lCvGt/VXyV6+QrJSnz0VsY17uJIP2VxGDqNg+GCZGBYVPioqSpbikV VTlYMN7s/NG3OAOQPIDX 6rg18LqgtBs7/XRsvqd1+ZaX0QVbNa3ktfpRPPFCAmrPIwpi3R1FtQXZuvdlfvKI5UGsoWcoDU1bH6nO WoJFJZT+Rgg8W0rBVhLf xYmstsjkqzgn0PzOQ0QoJUOqgt6un5EFm60LaRz9NW8BFpol0NY9u6WqH6/sue6z0Jl6b63JG4eNb8U9 PWck84fOQpuLi1wX8mcI 8gFb7WSNxlukCa3FjVTA2g8J89mKyL/qwTJ/75iyZ+mjsne4uBOFrvtPH+ALCe+kTd/om2TIwmjGBFz5 8KRyGIgDlEm6dtKUSmfz 3I8UZFiKKj1tyUaLKxfHePrrD1XBu5NT69/KD+hPbULw2eZyU3pjCJF3ElP+0ZJXkYd+9i2q7BxPCHgZ ZP360+A5WWeEEqncBVfN 4n/3gLRg1r87ipTC+MkWsqgCxcuXLioQcRzYTHJZwq7+dUd+fk7ofKgcpFNCc3ck+47KMd8C4y7DG4H0 ggy9rdpNCAUSRQA2zKzM RvMHRH8yEXWCe7jrwSKmODD7rIZ36653PcF/d2afv5fHgnW0khCPlp94PMT2if+l/RCE3tidlZhCkoUP 0tiowPPI3RDaPMQQht3V d3mM7XYTnusydAkNoD+H7OhgJ3VSXE37Qsgh6gJ66arALxc4MyP+Qo2q4L08TKv+tYhEjREJyH1tqT22 3P2TphM00KRBXWQQEDHR 1thixyO8lFw2vQGVyau+7+RYEG+WWk4HWRLaPek8anFWk5cvOoogPYA1vRvNDhtzVW56HPwf6Xv+e0Oq wbuE2qxQi81UoZNLcEuk 9vFLur1XEzAiSxLtRazXrvxqvZsfxzd2+4YRf1GTsWv3EPX8wWAQNm3VCagTJxVP7FHhgmExmk3ODXJF uktfIZNxy7OueNGyHDyR hWstYrdKaVnZ87Zrh/suQMEUOBPaLZgRUdh2wMDqw5CJOUDXKqOIyFl3WpR2aRiMtL00zkMRYwSa3PGd 2cP427DAE9tKZl3A0lpw a8JePgHkVtDV9cSu7xYf1wCdd4G3KI6HspCoyjBfkmA9NxpZglRcgNKMEL/N06rtEdwEHwwJpRbyqc5s Gu5TLZItp1o63yc1FjPB Is8tOwkwyjPT7YxNgnagSzPvomTVyo3lBIYAHXaz4xwIpc5Bs1bAR4NFklFGB36nd5zI/Ouz0KNt6cLK U00I4Bq/2hF49SPhz0rx ZIjQTu1otz2olbT2bi65FNpV26m1NeJfk0wLA5MTJ00jlOyKY66vNvof6SV262hNPw7JgxzFI+j1k/Bd kn5+XxyuLqhnVdn00dwW Fh+fJCx8V5pDTgC5uhBn8szoqG8SzeynEzPeBOcb6FA/kyQ3tRlU8c/P/uG7FbsuQR2DOC5iuW7wz7m5 KdyoVd32Emsea00YYPHV 9fWKjjf6jAqjMEjU4l1Nlp4D0DuxdY2FKa/NmTOsUTwLXwKn515kKdtU+gWxa6SBZWJFVwtIRbTry7el eJKa2jOqnGHi+WwVEBkb ibk6eifhie3WW/RtjusBLVqnNnsQb/jgjUMZiTuYydkXvVpS66neYL7OFPT3jqlR2eQA8hSKD+W5j7am 44Ov9aNZvlIl4xc+Rpm4 +c/eRiEr2b89b/Z3gSl62CpGAFaH71BQ1M8Sx+F9Z5Y74S4tEaSsgcLkk3jp2sdWgYpMXXaLr+YKgVlR 3ymrwGxXqVZgiC8E3U8O Qa21AjnUawgcaeVWpf1I/D7X/XHhd7iRVoYX3lnrPdD8d2jCdv+uCMPMLziUyusF8ME3mkiAF7UKl5w+ 32+O/OGfgf1wmVBcT9NO SaPIkqNb1A2JbFyS9x8TGqCNJbhheMItkmK8ewFr0Qd35OZn8QpYJXTaqBIWgnfboZ2HNmSr6/tIwlFD 5Yf+WSzZ4DVGopmhYRaB a5u8t1dQ+dt1v+7v+sh5pJp9+gSvo9LYC575wxvvMJLwuxTMNInuYz5/H20/ljh9m+Qzupe8GEejb8jG iV3Sb/jcck/CJlSNWCB1 X5nfTe4JlsGgmUVMKzVXoLc9h2FJbPn927Z31phiTg0KgPibwvu5eIs6LdIXDZ7ASfxKnmJTIHSNVxb2 lYbY+c+r+/dX4VkN+l7H Etp//RSIQAtJ3zpZ39dretB95oMB1jMvnn/ZNtJs0f35UmvYyX5F0BOXz/pde+EOz04Q5mng7EBNDa1/ iwhJXWfjOuHyfajesSMf ffD7HXB8zVMCE+qvVkba/nqS9Bt2pZ6X7IIvQdL7T6UIFqI1Fci14O3G9YfSYd3QiSpYwBJ9/aknDS1G Ce2fchEcqCAhUSFcaIxx kfYnZLA8fjljn98GAcAR/jkb9i8Stv9p88UfkCGHS8a1QjqEt2stoF/e30wJUH6W5jceNPg47XPih0XV byrDlOzk6tT3uJFszZLt y0F7aG6464YHbfMomh425w/rlXdqlfLPqeplFnXatnYx+LTdpWIOOvRcCfzvJIxtZKEz28OU6Tm++nxJ ko/XHscM7yFu+xr/d6zx Wa7HTJfAH9zHnd89Fr99w7N5oGQ1siDm+ZfEigpblvsIS4f2DT4aOs1lJSbSltYrM2KYGnTe71NeB0c9 kdgc8KY+Hh/CZSpVmex2 Um2DomZzZ9cFDTKu3G4zbWP1ep2YST8AWCsovh/4ta1kkJipkrHG55swE0cZgREA1n/6/X2i4BiPhoU8 wz0datwTz02acwz+rL06 qfbUbDGPRIgE9h9i+f5gyZnekCugo57Z5ttg32v+1jb6/wIYmsBNONmDtsScBMYuqrOA3RdQ0QrVoZUe JvUiFn11a1H40LkJywrE A8svy8ZmDwPPH9aR2uU4MEXK+ksamUoi0I2nMEVwRw20RMehU+ys1AHC5pJ1mOU8li/C69kl868ieyNR y00Npoox2775DsKHza/O VOWvSMepLJXlu6A6t83nilLdYgsxtAWpAt4FpoXjRfUMbZP7s8tgMyLud2LUCVwQ9URXc8wjLPi8UvRk wQWKQy4LIao+yx0639c2 JeVWY9gPAcKFELbOj0Im6vHl73GqD/+9h/sp72e5w8ha/wRZRxsLHSuDuq+EgyGXAvj5/sAWdP7UuR2S qXQoA61ofXzv23oLQrGX yFnzJhS1T+vDGOc/eJVdLWeNdyUnQWfDoN0RX/dH85k1t8Sqyi1mPdaw/odLjdNNq7scEODRzydVp4hi ZJY/H820/J7B+p8ScMYD RmYqg79gwg2lfhIkIxhRxX2p5BePbrwFdJeG+p1c2BbUC8U5kJgxxJH8p8Fu55jbrlr4xozJLGB2oeZa tFZX+gjtymiXqBti1x19 WEl1DKwog+4R5KKo+3w+Vwd4xshr1QUol5X/a9j1/WLqrozrycbOG0i6dgNElkMPGDmcliZrcvCWf3O1 UjXKFN/UJ9/uSSZMTJ+T lfxeIi/1hBb3FCwXDidcLpMvp3dWx7aJi3XLWGg1tiwuEJFQjoZqsLebiGaMbfN0cCjc/C7lSqYe9CEV tFHZl6ogmuphYgr0E6DA IP2opPlYqyvKpJGXlZqLzDTyO3js/teJGPd+6y7qY9idfoucg3k8V+w3DW2SPUUzWuyzGCdIt5joAN10 RaKeStiJH33NVzlTZY+/ kvPB4wezK57nqTYkOCMOaDzfq0AWdYa4FqTqV9FKlAa1R/OztLG7vg0S8Nm0lKY6HQ0U2sQoDIVtnyUV ppaBPNkeW+NjjA0uJ5zo 29Zp+lF/yKkY1XJHYJTmzFWe0qc+ctfePlEBSxdU0zpFDMv/jLwKWUvzkEPFKPLrtmW3T7fygXCLpmfZ BiFhJmlVkS/xvpdEFR35 KKxpKmWoY+KaBrodNxYtEUng9ne1HWGHcgZm6hY8zGS6DMbkjAFOXjIv4nyYtMnvRM7IV6Smg1lhFEWz iiNi6P4UcimWf2xEANWZ NpesRVBJxNdHm3ytO3BY4dgQaJzQOi6nW+SQFo8gcIPgxsH3GzpNcRS0NZJ974tMdf/mwoHG7kZm3qNL mrOrVE2xR9EjMESg/Sac 6HxxHzSH4gzXqIGfno3i1SgSpGc6UujBkkvWyyiYqva0EFM8It8WP/tHafNR5Z8XQWdWxmvoIEr4884S h70T61JWzhel7u9kOBba o2gbF60E2Ljqkhrgv5sGNnH0f35xd/ekFfNcnx68fN2sPrqR6XJUoEigJ/da9v39Y5uBKl65MwJ7Ikg2 oSg7lj49mfzGUmiXqOkC HQlpuS0sKjc/bj/aH+xs33+rqhNAQK+QzDWQg3USQr71i82A9lA9lFfCAP6mZh+RXZstJNusFhYRpetF z5u4NaBmQeIABK4MyXPw aDUvCpcfjA2l27MKDKKzLqaPk8dW72q4WKieafhaZB76sIy1+2UsL5f48tBwZmGQQGQlDFnpPHYeNdeg Iw2eqFkMxjT7KN1ZJOJ9 kQI5nLjit94pxy8B9Tt3jk99Y8p23CE5J40IZ0Af5VR11aka2fRMvqcik+PAR3Q7IM1UPLAf1Y19DHIH XeMqiZBoMlCtE4rRg35y oukzE+4ifPgIHIzUQIB7tFE5XnuO+LmJAvxRf7V7CNQtReuudRxzlxgJg61e1h7S7Wn07m1NpEoER35T sP2wYVsMZntBgVGdLmXj TmBArzVmkQPZpUKm37+CcigGykKDlF2xoCikAfGfLaGnzqSYbxOunor+c5q46B22CEDnpBkaeykCHpuo slNxxbr+73weQmY0EQxw W/OsqnlHBla1dK7twjcBtcHW1thTL3wP/Oxfj5D+3BlcubY2rxnLcAeY+oMwAKeakxpoFnuDdMG0hE1o yYum9rq95QdD06PQTCho YkVam64GZB3yqBbeCMR8wR47sl3/TRt0zZDtQol/EuitgUIYFY4+yajwGpHI15G9uHXj8od5O+sHd/ep 6gPZqBzvTRvNvC6QcmGa PEqvRJTZubeeaShLuDh5ws7HWl68H+SiyBlo27Qt5LpR39lx6VJye6lDXgVHInQQk8HoyoqDt1KxbIrn Hi015+rz/JLgiekPZrAd DrLfUTCIQeriS6aGr3/uXgTsCKqBo+HnXCDJMsOd0HYlwMPkyu1+4LrRBkTozOKzmgVqWZkeYARmC60m vtaL5Rji1qJYBqSgLGxY ccpdtkTStnyFXQUKxhyq/sCy3TeDgbIt/Aoa3cI925fSx7ELspsDxVbRvxew5V90fiVGOF5lfSqJZZdK QG1+iyzQVYfs+uqDiM/V rUgZEiO9JQCdJZUUo05b36mwKsAqgWybXYBa9PdtH6pZl0Wgj45fvbTsKhKVTFd84x4tQOdll4AdbQJR WI8yuIXfiV3nlNnmnaGP RZZZEzIYMv740txHSBVRHL5+3Odug7wUOjAYYXgoazb7Q2f29npfAjcrdxfvh9PZVrFIuOQErRzRpZgQ h8R5Nq9sdS5d5xBRvpkR NDAUBnzZTkhMt3GTS8vrNHK74nlPMvz2+ame7N3v3CTugFqf7U6mPt+jZHdjrTR7yrVD/9v2j65oJN3Z c5+8wHhu549ne9ZWF7Pu wT7jHlx/rSFsu+Cw/Uzc0/mii+za2eDzd1OSlrDTzm6Yy2y0J5XOQWuxETbjWuu/AgaVuhl6sZzFMPMM M84MuRzL7BHg/3cRJnRC inI21/LfqJ+LrR/M+Vp536/Rnvr1eXLizniEXpfxBg6npZakz+K8Zdnnx4faS4kqjEO56xb2mYDFoyCL e3/Cat3thbDFI69mqhx6 uZX7iCQAKtsLqmI+UKVGjcOMoTgnrcOSIeBOlHjwll6EB1VdA9LcQ6t8Z4D3wt9mtDdWWgbsAWKFnh+k HFz77Y/W6RY8Mp3hZtN2 1TJ3afn6U1GvkEZUH+J3l2Ht3/zPVmE1dusWfP83xo61fqvSTrngDIuqeL4tAfhBksT0gkT3IS14p2ge xGjJX5ksvZ/+cXrmWTHV ix9Z2N+uSQ1yOeGQn1QMS/9yXlAJKAdTdbD44iAOLThiVBnneIYx9x7pj20hbPKTcUKCqEzkAeB/u5ir kgYB38O8Ho7XpW/p5VN1 GTrghLj0CtAzpY/uk0W1LVJ4QdUbl5RhPm+RaZ4UciiSuViti91SI0hMy25qSviDXBSndJeUVboP6MvC PMJxtgQFqQ2sOm+/vLzc v9ZJhkrTIOrdKcasGJjHFwKjkmg1v6MGIk83ikPz21cpqOUaeTpRnpdK9DAsgBPCOUYYGCmTuclfPQW1 jHd0Bdh000tfMj1JLnNd aZ+I0hX0einNK8N49o2oKJKBM9kFaybz4TyxD5rCOmzfq1fYeXzAmn+JgvV7KddcM8fw5uNDT+rnjLIJ /Jose+q0VAqIEdFYHuOU5 ZIRfE+YcNSUFoUFNdcv4TIb0wtB0I//k3zGEVQpss9Ec5V2y4ChnnBuW32M+05pnrKz0uS7kAMYGkIsf tivdPPxyHMRIN9bs3K+z QSH6J+UpDi9mfrtoH72Zzm3DztNW/KVpG/0ZBVM6ac8f7w2gSoJ24hEa6xhyd1vZ5VQrNxRvDRhZxIpo dOMsiERELto8Wm6nE9Ds gbrIhA2rHzgCTU2AT51dyHbSTVdWUmojjlL0uiyF7V/ka2j/SfGXz0GAFCUyRiH1AXuzjHbega8o9fm8 Ukqt6zblJhLd5Es/dryI Pg6t0vPht+9bJIYc73M/L15if9Y/7qacTGFdIEWm7DstPKLD8BgJmeNYXG7kTSFW41zkK8nkLTu1gcB/ dXUKcc37AVZaVFH48Xyl ipcLEv3kWoI3uPzleN9Gv81y965HqiA9WUOSRBQpyDRBJDLc1qnltAWjWG+Hdzyb0EOcjVj04oDJl8ZI gLE41ZNA6TaS1ecu816K l11n8MsE+owi5r4Bda5ljrCSdBpk9kN0Hqbct+/8cafZuJAmUCTkqmYNiPyf4Ii1tqBHtzJXwhOqH/oO XlLE1JcxhdF+AT5VtTvZ W2bp4UBDDthyx2f3glFItXEZ2Ul684gTL5V3H5S9jkXUvQrumoYk+dHyaiHADMqRGaqsDpJy3+alos4z QWwu1iI0AIRGlzReP4uV gOFBevvTge17lErF/Lwi8jwbrxWzwb6g6z7KH5Fh4/U+u9mP+Gjneo31wF3oKQhy1J8kNwFN5aSbNG+p /jTzIMMAOknd12yXb8jc V7IzRiqXn7O43e5KdnVZmUMiV9i77jzBgacHy5+q/vpRN0H7NTEpWo0spW7rQdAwEqJzrCPugrg+ucss c8Xfy/tD0/qNWplmDWSv z1tpeiurNM4F0ps1OsX2N1HpV7UJy9+mDD/EAGL4AECGpngpP/0PP5D5oQQqKI493snb/1tKw7JtLBgy 2Pi69vixRetnPaQq0E6F fRX6bgJ0c7XYll820qDEeTRVTPXW9rIk7yJfpIecJeaY6bZe5ZCSjTgzzimA3ageFRxqoyqquGe50BV8 wL6S2aiusjVMTX5iyRXl FK+bfOPTzROfGQm3flZvQlmwQyeN4YN4zyQlPlpGCjLYSsCFjfESWBonLDAxN2OAML1qMAuCwN+H2DV/ +TElR3AUCDYRVdKAtGzBxQG></span>
</div>
<strong>Patient Name</strong>: <span class=clinicalNoteMacroWysiwyg id=[id number] macronam e=PatientName spantype=macro title=#PatientName>ISAIAH JIMÉNEZ</span>
<strong>MRN</strong>: <span class=clinicalNoteMacroWysiwyg id=[id number] macroname=PatientMRN spantype=macro title=#PatientMRN>[id number]</span>
<strong>Date Of </strong>: <span class=clinicalNoteMacroWysiwyg id=[id number] macroname=PatientDateOfBirth spantype=macro title=#PatientDate OfBirth>1985</span>
<strong>Today's Provider: & nbsp;</strong><span class=clinicalNoteMacroWysiwyg id=[id number] macroname=MyName spantype=macro title=#MyName>W[place]am [place] [facility] [place]</span>
<strong>Date of Service: </strong><span class=clinicalNoteMacroWysiwyg id=[id number] macronam [...] frequently. She is now talking to her production mechanic about partial hysterectomy however she has not [...] As much she can tolerate</li></ol>
<span style=font-size:12px><span style=font-family:[place],Helvetica,sans-serif></span></span>
<span class=cl inicalNoteSectionVisible id=[id number] internalbreaksection=fa lse originalname=Med [...] for today's visi t</span>
<span class=clinicalNoteSectionVisible id=[id number] internalbreaksection=false originalname=Smoking Status re cognizeconcepts=true spantype=section suppressempty=false>Smoking Status</span>
<span class=clinicalNotPremoWysiwyg id=macro [id number] macroname=PatientSmokingStatus parameters=ValueIfNull:Not recorded spantype=macro title=#PatientSmokingStatus(ValueIfNull:Not recorded )>Smoking Tobacco : Never smoker; Smokeless Tobacco : Never used smokeless tobacco; Vaping: Never vaped</span>
<hr><span class=clinicalNoteSectionVisibleid=[id number] internalbreaksection=false originalname=Depression recognizeconcepts=true spantype=section suppressempty=false>Depression Screening Tool Status</span>
<span class=clinicalNotMer[facility] HospitalmattioWysiwyg id=[id number] macroname=DepressionStatus p arameters=ValueIfNull:Not screened on today spantype=macro title=#Depr essionStatus(ValueIfNull:Not screened on today's visit.)> Screening Date: 09/19/2025; Plan: Patient declined treatment</span>

<span class=clinicalNot eSectionVisible id=[id number] internalbreaksection=false originalname=History of Present Illness recognizeconcepts=true spantype=&qu ot;section suppressempty=false>History of Present Illness</span>
<span style=font-size:12px><span style=font-family:Washam,[place],sans-serif><ol> <li>Patient reported that she has been anemic [...] has heavy bleeding. She has consulted with production mechanic in the past, however unable to tolerate [...] <li>GERD
</li> <li>IPMN
</li></ol>
<span style=font- size:12px><span style=font-family:Washam,Helvetica,sans- serif></span></span>
<span class=clinicalNoteSectionVisible id=[id number] internalbreaksection=false originalname=Medications recognizeconcepts=true [...] suppressempty=false&q uot;>Family History</span>
{ }

<span style=font-size:12px><span style=font-family:Washam,Helvetica,sans-serif></span></span>
<span class=clinicalNoteSectionVisible id=[id number] internalbreaksection=false originalname=Social History recognize concepts=true spantype=section suppressempty=false>Social His tory</span>
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

<span style=font-size:12px><span style=font-family:Washam,Helvetica,sans-serif></span></span><span class=clinicalNoteSectionVisible id=[id number] internalbreaksection=false originalname=Vital Signs and Pain Scale recognizeconcepts=true spantype=section suppressempty=false">Vital Signs</span>
<span class=clinicalNoteMacroWysiwyg id=&q uot;macro_[id number] macroname=PatientVitalSigns parameters=LookBackD ays:1,ValueIfNull:Not recorded on visit spantype=macro title=#PatientVitalSi gns(LookBackDays:1,ValueIfNull:Not recorded on visit)>Blood pressure: 132/76, Pulse: 75, Temperature: 98.6 F, Respirations: 16, O2 sat: 99%, Pain Scale: 0, Height: 66 in, Weight: 179.2 lb, BSA: 1.91, BMI: 28.92 kg/m2</span>
<span class=clinicalNoteMacroWysiwygid=[id number] macroname=Immunizations spantype=macro title=#Immunizations>Covid-19 vaccine (ZAPITANO) (12/22/2023), Not given other reason; Flu vaccine [...] style=text-align:center><span class=clinicalNoteMacroWysiwyg id=macro_[id number] macroname=&quo t;PracticeLetterhead spantype=macro title=#PracticeLetterhead><img src=data:image/png;base64,wUNEZs3PGybNCVIVIGkIUrKMGBMFIUYrJZYEQLV2Ix+UAAAACXBIW KROUH3LKLPIb GZGAj9xGYZXgbuJCEYJZQw5H78oUdDvs6UsLafjeCBCJNJNXL98vWIqp3D7VEJoD7emVFLnv62aEEmgJ NPCSQ5nJXDOKGlrJMbjH UT7VzZeucuaGDLxVg1bIBc7xV1hoWY9BVB8nZzohgz5SNErQM1wIOgatgomLUDjPhQryBe2iLX4kf9jA HVpRcGtYY7CKTBwazUaY v1oBOJdINXnKmsbFAH3KJN1SFY7GSSnDLMpUiE2HeSeMEFkAgLrZkPlLPLvHAGoQPEwDpZ2rbApRxIXZ fG9yEuqpgwmLJI5Yxt1g NV3Gn67h5kwauNgj6LeKtG4BQofBOFzUfRvfbWmOHQ0zdPzuU2wxrLrYuA7nwGgLnWaj5AslMK4fY5gN KDyAusrHt30aK6cRkO4f Guaskc7xLM0Leu3rDE9Ja0zgm1cFB6xKA8su29erNMsTgKfCA4mPRaxxW7gXdUrBOFnqBAjXj5ihTHwb X0uwhyyRJJpLKnxxDDlk YVxKN7lWmVzmU8scyG2bYvvgJ6meO2hPBQflDIgXf7nxcXzSMRpMzQcO91dH5Ykr0Qlq2vxaH4yKbYaU lP5rRidmic3kGWPYV0fy YP0oYdaJ41jReEsq6OzGzDfzY18GNBxSE3pD25dHzIudL7ytjH0d8REmeG8Yxd3lGY6Fo7xkn8cYT3nW M8pp41djAVrTgGdMZ4pN VeuPG8LHOTdfSYiKXO9HV30LcGwqE7rHvSuGSI9l0FVu30ySDZRQB1xQMKOfN74z8Xbb9IuRcKbFCQzR VGegZ99i1GmQBVgvH5rX fToKDL7HTHttNN8UxIfYfEfXOGnWtlMKIC2Bdp1CwDqEBJ3CXZzCYnzfOgKv8PbTfwHWGFeBSEoAGWfV OVvPRF2DOTuRsFlUMJ0X fAeTtW0mQL8NND4KCZewAIPIQQaFQDfTUPpPSSoMTC4WSXjUcNjWPM6DoSeEdNcFdkgs6WrIFL8SalbS AwwQ6XaKaWnzZomiU0gm H5wJrYdlF3oHR3oXE3nEkYgoK9cCO58IQ1cgDEgA8VEEN0flR8yAwjrWBm2CYSnQkGoPM2eJHRoLBG1C kvsEXi1AI68QhA2NFZmB sHgPYWaFCegmZ7WIeMjY5RbHO10KHY6AmixtM6unKJ8IJItPaWxMFWaRykgQo94GJB4CJw2LlffFFXzL hJaK2L1SUKpWrC9aEPPG ZfIlvyzyV9exVLbG8RwFM09BUF8HxfgmV7exPC8ZTHlCoJiSSXhXizlHh98VSP5YYi5ZjkxGHPdKoUeC 3K4ERXnBv8uMUZtj4Bre 8zmpEeVd3K6yHCmtRJvP5FpuV6fra6eHYLsZxhTOMh+ZHyeMKS7bHw+wS7vRaSuXLz9ZgO7T1Y9XBKyU WEgZYO8YJAdLnsQSXI8Y oPIMyTeGSkwwlMyYmaeHgI0R7WfHuuSADh+RKkcvXlwhF3axP1pDpHfF1MzIO20UF5xACS2i4WmAqC1v R8fOI75YXmisN2frZ9pR HJkZjpTZXE+WGpkTLY6vUvdf7YVrxO0RLS7kY5mJBRlnmCjqBRaFoSjkWS0cSjnabL0VX5aHGkXYJW1h ALzhOweDdnmZrNfXEV8I ZJ7CRZyDVXbYD36VIx2EFAyOVtoVRGiNLY5OlYhp3QQkcN9f4waod8bYiSoIs2kKF4uI8MtUSpfFFtwK T4dUbgeWPNee6MGdzM2s 41igMrbizYNG1SqbP9uCPSzLeKoKOrsmW6mdA6qCFYoEvRjOU4wR9fgtV6nmTzfYc1sHJ0yQFV9O9ElQ zB7Y8quvV9VRvdnd0Nuu nk+FRpklvKdPeIbn0NyxIY6cS8eOtG9D8EuKzcRRWX+OLhdyEy4oIYoVOMiRcY2J4mcNOJcANPgXO3eK SJyIj8+oiS1QPBRRePPO EFUeJztnXVgFEcXwN/K+aZ6xZD1WNNzolMKGu/aRSQslShtOQEbEiyjpz8WTQhvITWxEYebG0mj/HZ3v g2LvvizWfYEclY/uz92d 97Izu6+jAfvWaNbFBDvCTrzNLBfvOr8HSzQNrBggWItDVhFzGPVnNKhWBbgQEntHVKUoeURY4TZhFvie gHqBKZIsXMzRSsthA0cN mD+C2ZUbLv/xkzUrUcI9iMEbgNEz6eTMR5eqn79IKhfyEHVi/pzaE5wAX4HPpWx8zzFLf1d1nt0ZHJxH TNUHmTYftLgmtLRxf8v/ pBcTzRfFWySCCV7vFvS13s3i+odpFaPF7D6ZLo1QjIW2iGNix4VMOViXZKXeAyPiNrT2zgHVcpvFks4h OJYOoqj5tSXVAzoYs1R8 7SNAu20Z0WYacyBaw5a55paCdTznfPY7pALJDCGHp3IBuUhYOqXxCQOq+LEEumob7+Z+iXCMP2pOCoVZ acGu2Jj+bTxD3Gtx3XGs 3zd+8ef/BzJ0TtRqSHdpvENJFLvLLYPSFJynum98/oLf/5BkMSEiRPH//KIiBMcO9lBHbamgvu+9bpXj +8qlNauAm8c27R6NfPA8 7JSQUHBzXwfZZh7oVzXAWm4nhC1zM57jh4KtaL9A5DQA/TmsWif14//A05eFJuStC0W3zqJwdNvgkgFQ GNwj8hwim23ilwVHb446 qS/v/8gYWvfeeVGLQfwCQZdCG3Ipo7zUBo2vvNvaZcgqk8hqySenC+/v7//fLVtag9gNW+48+cZz6opb 3PHhhq0nLlqK+zetnvJn EaNm/mjwYelFbFJoeltPtrNJZWuf0wKqD0TSlF1/MEOCw4K+t5Z98YRCdBhQznWq9YHc4stppV4TqJSX TAYDAYDQRAkSRIAHMdxC Ut5RTvCZtqRZn9BB0uLY53oVUMv2uWEm/wkuSUwSlwxeT4BAxr2wOWdpqx+tzhA0HnIZClYAWYcSHnhI Z8JIfATHbEBOwsdP9SGe If2n+3EMf9+oFcQ9gmdv09nfTUxmw8Sx6Ff3YzKufhSw8Kr66M/jhZuOe0gTBgcVMwwfKy2/9eckq1Wv Ggb3cCh+7QlgtWVG7iiQ pOkKYNWm/+CZnsOSE4bfr33/+F6T1hWuy9LDUI3LFidYhEzh98Ti3P5snCEEwXSkps6+SaCUk77yespF zjpFnPTZSMbGom5Czp8h buXSIVg/k7nuUV7M7fvt9207sKUBctATZqLIi4zjgh5an01qbLFkMixOMAyBIAEC6SqE5dF1UmwuXyBq JmmJUMXkXYYKhZfT8ano 5KHpQpj3bT3uCCfLpt1bbBi9RI7p357njJN7HrdrBa7wYt35OQ6hi18y+Ki7SCqm/9+XmK81ry84l033 u3Dx7AexSYhs8/fth1/e Af8dV06qFdoMEqXDgleLWyX+/d0pTy5axogx9uUcwGKDkedfhmZxRnB3vgbhrQ2NJufxQFWCXp4yQAfT fRCzhgtvHOGfQUy4VoUV +GP+o4e6+tr4xLQWyoodSoQyjW9kR1oBi7Npgy73ybCwuwBc0aW1Iy9btAm6T4aWv2pyMmYbuHy6G04k riGE9QKHDUDooicWLMs3 XzLeFUoW+7SxYsFicXHx/y5xQvk0OgiZUmyNx7iONt47ydJ9reVozjICyrMLhlc01AkuocgSWKoMsphM R8UjVDaMMy441AUBFmqo 53H7DEzIeW9gvPOk1j6a0Bd3xu6LgtA+W+AFRYGIYS+GTmqnI+ah4ujnB5Txn+X7OzDLqSD3KTVqgvGj C6KCaV4gQyJn9+nt5u9Q 8bxoX8iy5NJrBYyYgxq294uB+eGrulyJzSZqqO98ZveIw3nYUbfxKxN+a+Go0vXYZXbYfs9egeHzvZzP a567L7ViAFiKFfqzFYor a7yuR2Ngw9jFRhXs2lFAFRCGfUKiMx0HGWtWbAYjTt191+HRz9+LZNLFc3oW6EE0un4BpQaUVHb4T0P3 06UVmqA2V59I0ERSVMWM pOHSiU23OOZY50xqfpT6abHhfgHuMNnRrUmd17huc8vahaEdE67LnV1HlcPph2Wxc1bYpKx7g6ro9viC H7oRFG98yaRn2mPHxn3L uzqteKfFOY/YYZOMUx99Yiwg25hd65WsAKMaM6nBDoL7mzwQ/4gvV4/p05gIGIRUs3Vn2GsF+9Iq1FH/ 5D23KAmUUWy3ysFTSdxq 783r1/nj1i/JIRWNRyQpKhuLNZTmSIp9LSfx7Gmk13XpI/R/MLBCgsDqSmpDMPUq1+iAOhf7Un88nLcW nkPpvYYKvj5k4mC+/Vfu JsUfnl9x3i4DwLMbGdsNtkHNq1JODPrFx8u3LR1/rfpl69yR2+0QZPHBkE1zNAnqWPFq2pJVau7yqYDL oTFbZ0w1VF1NGVoVBN86 TLdOHvUwpbDxEXNQTjhEk76Rh9+/aHx0eQRiie1gxgodXYdne4dl75FuP7YZb1+4Yns534BLhUmaboHG KFGI+X2MDCXREYzClXLg PwJZXnc1HRRp7kQOqf1j1t7uSd2dXhnQQVxgGDNpua6eq42IjqaIw0wxr9gjjn4vVcfDVvueYurTwtKr z9xfWD+vWCFhQGKokiSt HdwBACTHzFB/ZWjTaSF4pv+ftIIU6zrvu9JYrccbIlBsjTYSXwfILdH4PIl9kUL7wGXpdIxktlE0AEPB ARAAAGERqPRaNSqPGWeU wmOENY5shHoZAeArJMUcviQimUZ9g2R5or+6NjNCFg0sAUwbmMi0HEsxYdpq8kWvWJeLrfPsX/wRYMVF oj4ImkaAqaZsJRdm1MrA 75y+kRsh1maNv9nBUhvhL3Pdl2j1qRqUojQNVa1KudsmZoPhlokhnCyAeLnGgBTGAnbmtt6pbz52mrG4 3klOKGQJ8Qxse2VgMqgT +4/fVplOwmq8Pv9o18jNwqh8ezAIEVFxTQQoEwAVZALhLMx/ZP8qTh7rwEYKixuMYYGw5hSOM4HNOrcI 0+dBv6y3C7fj0Yprlcgy 8PGje/gfOnrnRKaz8xFGtqjzUpoi/AIKl/Bf+T9cWWcMLBcYXAH65x0M9CaiF21l/y5e+A7Sm3nA+rnI 46ogdJVRU9i4h459WrHz gQNHWQIvbvnLmJk8mnv3kw00WBka6alHuzUMzU3uDME7uaUHIMRhTQrsmoKbMkHQ09+vhzLpqalxyckb t2y5fD+/S/jXpbxKtOle /khTx5qKWgq1NyaT3iEelpxsLdZYDjj3fc0OQ3/LP0IR3iS9/EIKMfJlCUXHXd4BWMF125tNTm98rWyN 5bCfcuWdDtXrsFXunW/U z36/K2pqd27248/f/ZsyJmzi+lLF193dni59RgCRx8p9JyQzTlFkfsR3ZftMvn/txU8JPVFXE+io8t6+ bSb2tVeiGnkhgkC8cfvr 03E9bdy3V7++qmMU1iM0gN6MTCZYV5MqMH0aa3JWhYLhFDCcLvD/yiZPpqxE9c+db2WLZa68OYgyrDzC gpcHZymTZuBEGIRQghl5 GoBRIvgn2tgQ8x3TwkwOt5io/cr+/w08ZJYIQi/CniBmIXv90/WXU5tQ8Z4lcRHSan821EQIdlNP0aJY BMeSEVnM19ClBIllR2wT vu5i+kvesaa6ytGc1sK8rQS5a4YmjuVBL0GsaqtZRoMRrb4mCoal9WvksrG7+dzbfUNfzHLPcN1Igo76 tCl8+9xo3Az6FAy8qIVJ X7QN0tgvo8rYA6LHQVSXjLtXYVMrblNDtApHJUnfBbfEg2fvMtXgm96uayyARmJRHSFiPElHhtZFQ0GN /rlOPkwv9SVp4wTbk8D8 VafFzk7Z54u7w6lR/MfBJTBnvTwWdx9NDr68BbHxauVyXpj2qe8d2Pf2hkLpThCMsvIie7fGhz5wSK6R f679uoJul42tPuHsLm0g ZkvFjxI/OVy/250hy05zOzbtnpaVi1NvqfSQ0eg941DsQdqIAX/R5OoBCXrlpz8jk8kncBTY/62fauLm 2kY71lDb/0NRtbAwuxFC qdD640qIZmAU5fYGjqme7T0W2NWFN7fGe0Bh2vO1Xo7pgS037eTh5gUMIVpib4xKPhOfeYsyM+UWzdvD c9aTPz63nsa+wdZ1edG7 p6lKnpeY9s2KAVAYSWm/nGrnEPXEhYPe8l7x9msbPvYn7msIUGdu3Y+4o2Ig9QZKY3Cktwcf2ChwUyw4 SiyFUAC+36O4SUJrFLyV byjXDByDxsENurW5XsTy7xzOES0fiIkCYLACgTzfN+ZsQyhs3iSryzKbvgfk+8UzcdIJEk8Utfa+NbV0 GjLt1dOaIYM/wsEZPyrV 7zs5QF6feqYrV5EIY1iMnZw7P//SKN8niTKKqieuozfrMqfw9RjCkwAXAGgAEDtdFxWvDTSKGc6LkTre Ysz57K5aV6GYvFMi0cHa d+6dhCnHjT1cRfwhbQnC7lQoLDK3OaWZdGpXtCNn8ICd9Ps5tmbhbuDHUsBO3Ua2HDsZMbARmc4B4URB 01Obt2+G7oNsAH7Ru3aH /brsKKFB6pd128uEFs3oUsIiYdbEBWBOcVD7Zs9Bq4+LcW6WnwHd9XUnPSk62s8D3vp4pl27r9RQs783 5LBTptcm1GD0qkLgp+Xv 0g9ZmA00pP+D3ErAMuNCBH5PhemrcBdkbOaQ+6CIZdegIjJDXRslx8+Wcs2UXNYPVh1PoE83q/3BK39d UaFNobGckN55EJCxoHq4 vwvydOXMOwIjd4W0oMJh43Bu9ZWIzUxLjM3LTVsyD5wzDaM8Ydk6JSsIlqyhV3p7zWuK+spn1SswnO87 daUMwrAl3cvIQesoCR7+ 3pd+4sTrKhid00RBRkebuAVTn5GfLbGB6kMPQJyo31faWAgNe2ITIFLtDDJR/Cktm3CIjjTTcBuGdp3v e/QvRNRpul7ed3Uv9Hmc S7UKUlknVW/7ZJXxdIFMy85dJAyUbW9tBdwp+EyuUZBtG6egCO61obJ8+dq8PQybwTbhEsLSsJ7d9jLp mDGsp9qt/b0QN+NzmMZQ iyR/RStMwYw5AZqiecOfJXzBcxW0B7jpg65nwHStj1YisbRnec5CmBZjen6P4ZZCe5Ps154S/2DlHW8w +8+ejJELW1dZNbFJhoX7 14ArdYK45fljqQtyCCZyShZGaj3i5iHAoFYW/gx35VYjpyRk49q3r5bpLRcdZnqDDClXbRc7aIhYLlBD hEiaLEILZyvCLvuvHbJr qztVpGMuPADqyhKecEXicIbc1gnGyvm8Xrpww3cR04ngLvn5eYG1nLecCaHCt1t7VeUT2SCEfPaYrNCH p3ntOiWaMG8Zd4NkBPVt 6P3ntV2g6kzpMvw2f/0Hml2JgTi8CzNPAHLsdFAEF8o+wXcOBbmhsbUwdcMGgMbaW3Iqok6gDLbSotzU XpARFBmGXQSx6PLxDfP1 78fOLXlU1CuY9iyQH7ZaJI+HJLQuX7aZblwcedITdCtJwuTVNTkm3zhvCbAZItQdiBqer4uAZHGE2S4A m41P6TH/yz6q/V2cMqdf DP8YtncEvkJ2hE8wPzMuuKV92w8/1V2o8E9duXVHXRcdN7Q1rH+OwGAOFSnKYBdSTEhIFdla9BVEkcJ6 5QRRel75mDShHvoMiRWS VfOhrP8uf7zeubV8K6byxchJQVABUEQrgG4Er8UHkCPVB1GPYYORZluTW5CaGgEleG9MDy8T6pn8tAua stTBVd2CVJEsYkFRUMZs 3As7Jkh9WpIrvwFaKZjjfBhkc9uESblDdkv8p0nGvaJKRbs9Ye0PmYHDV027BgSS58HJlgQct9KwnhGu zNS+fPyLONZcpWK+axgh aLBPQjLP1IuWNYSGwFfzRytnfIJ55VYH2C8071OQ3k7CG/j62++urqMBb7eHWxctlEwhvlDpRZCRGlXj gLRL8s47Jwhun8aMqhPW Uole6OwtFm5O32IIfIVJrIOBqvxf3JWiKfPUBZoT5gpvwobqeVN85naR0xLRV1dvmCpMYrcmaE7L/YQY rHkjOTr3UaUVl2Xe1IFy 19qXv68UdEocmQY+ed+X5rD17b2c/D92XE5nQ4Wj2DBJX/PkTuWcas/Kus5r24R956pGS+qtk4cxOWgA f5bheernWLLVzjtzDAkA a1cXP9oDtWxMrbpW4j46ca0mkjFFlAlKyjUUczF4JxiQSJb+ONeNsfXrzUEFOkTw0FM3A1qu80ZBVauM uyG53OHVZbVoPsSKE6Qn ZgGAC08u53RCOBifwG80Gc0v8jb8G6JQEOnxRNV/qsL3YuhK6pSRTMkmvjxLqSMhnm7WFU9FSBsJqMf7 jUkUN86w+Pp+ZPmSP5xm CJWqkIJl1FxVB5sSXG/MW5BWa6Mw6FQlii5KNjEToRcWWCf1cafhI/3ovjMo9HrWMQIdddf8n9lj85qo OocQCkdWZo502BF5+Tl9 VAQinltBUJx+asLGFv2T6RO0+3a7bHv9LXZyF1JWFR2lRGd3oSVs28sZy/YoND1SPFheKOFXMLr9vlCA rr5PtfbWSVREU9BpOJi/ Zq1rdl/JIFQbPRjtVpPUJZmr7//7rDSLt1RTiFn3d02I1FtAw1t0jdQjlKPNmig/ea27BC5fasfqZ8Kw PNKNs0EI970ymRgz61Td BjbX0I8jMF+X6ycmJuFJVT/EbRukohblvvfJq5QIaNwgKUlQqCpxO40s0yOpElui9GNslRdcHqsd9Bin 7Of/3FzR0fVFLNDTSZXB NA/VVoTXkAYe6PXlW3eiW1WBmsmddXycoaLXyNXNiHsBKH3+Isk7Ui03i69Z32AhN0RqKc+sx1DoZzmN g0rha4rC9k1bHIG9ndRS Fzol619a+T7xuKvY6l/Rsnlk2fWfGiwij3wYJl1oClGQM4kKTJNPSSXMrF1j3EbRYNga9ENa9prXtMSE 1NZtNdxSnyyMO70Yh24C zTI7y8AvxJsLj/4C1u1nbTweOg5w1fqZWXqS400pGc4WsJw60hMlqacrXuK94yMe0x/zKpVyjuzq7Ck8 q0lj6x1VqLkJrhhWRZcY 6paTV5Jc99ODndDTuQv6GO001S3k/LB4CGlZ3vvpriO5Ha/405BBRyJSg7Hbfa7uG0W5dRTKcz0qy0/R 4uMFNgboYQXpaD9nwdbU sbPwpLi8Oiu6wn6mpmciUemoPzWM5xMPHTJwpR9rTbOojyk086g13ycLNZ7/awJtaZXGB1JWiBEGCDlu 0BocpPa4W6KXtnai7g43 +FJID821rApqOtNOIHoUnBvpMWgIRq4qeE7483QHQspQ8qn6aFi7S2zj1AboQXkK6IGTEjSnBdnuQsgr EisTktiMlJGjxu/88/dP r6+ZE95aBZFK9110pezlLlWmdE87+dw8KhtATqwDmirw1obbcNk9VB8P8TauAPELN9he2SgoBGNgR+q6 TgdbgzOxxBI6394NVj8g YKK8vHum8KWplnqt2LzSTo77GCeaVBntN33qSa64vQf8bnBLZkTM0ESPJQqlfqRiVqe/gtckLKRWy3C5 N+Nn/E26DDoabvbvDEjt PKXd0Bm5OhnebtMWNElMX71/HPC4SSJ9xRKLjSCu5sHYAS19Mgn1E122YVjs2t6lB2xzHIlHgBzBXg4t y+gPnMdMqgJkwgbw7TdH uidkSuyR0i7bi45Tac3kglcA3i2cCXcvfBIY3SUwhT30GcuHmaHShMTwG7bo1fZlSg2BPQotyF5fLFAj SARsQObMtXE7Wqc2S26u 4fwrstLlkapcLfd0Ynke0Bb0gaBUFpJHecBNu5uUwMXGMJb9c9uua2VNTm+VXmivpjwA3JyQENgS3XyE WG9ucGJ85pX+w4xtuCLv boh3+USyPUuYpIqyhcyV98gE6q/mLtwyne1YUuX5xEo2XZ3f4Q66zrplIOrX00CU9/CWsCUBrDCwkBiQ gJBkpxYqtFpxBWr+1YOd Ja1TPnn6catgUgShyUPwkV2AtWANsPgV5cKc9bFE58aM3F41/sxjr//XWBBfqFhjafSZhvad7vOSEUmI 5HgfwRJkkKx+L7Si5rsE WR0mZt+0/X3azjqUO6uXsHtxXsnjGB+CZ3GXZEHgcLfFwcFcekuIXHYa3HVhE2hZaZOGZGl7Mk4gB9rP pVcVWFKGKywMJCTkwMAR qNrc6E0DLHLBImTo+np53htNxeGObnuDgcw0vQHYyT4/MxAzAbb5lYSsdD9ssVAq5U5Nv9ZsCV14n2ZP WFYnWJCKJGg5psu9TEAe azRaDQaGIM+1ebHvnYVHTkr3Gm6vMvu29cSrLPKRcTXOUURC9Rkmd7bSCah9DQ0HdEvscUqTsMEvP2gO FJLDQjRZa5CvnZXgyaYJ PfL7piDAjIGT0TC59fa6vnkEMKLkUxn4Sr9Knc+yviBcf2X9BQ/XvUhztdb3C6fOBSSFyF6NsQm9u13/ oMhsAaID8FYdWxNHkLDY uRlSKXyQSqxXdoEfiptKgGBcYy3AmOskKSR1Zkfs3mcRJd0b3GLj1VA+LwLQQcfXmUWUWz9H+0hjmEQQ lfjfvOcbUQvNk2QJMQLX XTEOOzhsIomfgK1cclzZNSQ6DRSJjTZedXJwCnmvtq5UrvEucPxhjdxNOqNubDhUE4j9948r6yhbYdtN qrrMhUkywBBACAAApycu VATRApojHIoFHUzXgb3X+bkDTiMrq8LctIpJA91I/cgnYaoXkfFckijfpc1/DSKtJwxKanIK98oSncvd V80+QCveJ7GJuByMh5mR K21I4bxpkmPvyPqCgUwrh45C/tECKppZkA4gQDRh2lMPpMqRTP/Tv0upje0jp8hzJKaa5sCEwahYLUAp QEVZyyBtPYg3RWk3IRwj o3XIloND0XcARUjS4l5QBj1UKp4yai3YsK4BKggMNCcRtG6iOLhxz8wqply2Cmq6cvNYUpmA+tHCATGp xHqHAWIpcCyYNHGAQRCA ZvaP6gknaAoGSbFcCDgpWxTDXPdAFhrzQc0U7xBioLEfrI1hqsrbsJPfbkz03gJw5rIyPRJJMMehFG6P 6cRRpjuaFMGYefk2WxAO BcOQfsHbpca6d9ZUZO7KVr3s1vEm2RpOnN14jbE/OqXBhpSLYR6rYWX9mkg7CoAhv3ORgHPrXrMFNEFM VGjrsTGjrkdqmscDGbru dIgMC3XuKhGQ8gQJ7uVqBOydF6snf0d93fP0+/SosAq+mEnx9cVC37Z/rSnZRbEneTg0P9VwrJe9IEhu iY4/VsuZtUQgHHlKS9zd QOPZNX8OhX/S31g/s9twTQAjUzMww3k5Lqi7Db8vyFFwYpIUSjVgzHc1cDAF3rdtIBWLG14RCFCHatNL 1KXlFToypk9/Kh8I0n2e 3+aZrtN9fojFp79ijA3wBpSr3S7i7mIHONteef7jISgg60+FaPXAfu++QiNKFYyMVlGk1H34VvF+nWLr z95XWD+4nM1pRcZs+U9e /VEAqEg+lV517n2v2uTDhDwwi1hHgEcYOX/C1zpAe0wnWWu83RRtVIqp0HUelNhBmvSxKTnJVKi1Cdim yEyNO2eycFO8maITihh5 gl4nKPdBh06WHBM3wtXpXQ+HrE38xqno8Fx8UL4Cwk/4tNp2mlKhYbPJKab6dvTIPWrUM/Km9BqSVpQw YNcou5kXsGnulce0bToN KRIYJ3TDxu5XjPFyKr10yj6b2q22KDLIckuLliTAXaBeYvM7ow18+wzf68TnlU0qOSQLewkhddLGiIkD /9pe/aadk1rsX28y58mF GhfMRLEAMsSFfRm3bdWNMLkKhjKIPfy+5QgwmnXvFmiVyh80cXOW0P0PDhSCCBju8Sz/vdu3nHHJTSHS YCgUrTJJ80lOH33+UT88 zrKdrhu4C4rLCjduvZwiK4gBbnmy2lPha3kEifSoI4+43Rsu+rV88NYkejnzcv7Wqy6/v8rMpvPVonQH qGAi69JKsDal+Z+mF34W TdKJUOAOs7DGC9QSrJp+07FMpoTqx3UqWIPHEUWLTy0ZVCQNgkyWfIF3cRVRJJJYmJ//qTne26yRPrBm of4RJ/XeLCLznf0RC7kD I1aQ+u0tBJocw9IWmxezcyFVjIOdJHcf2CnonodaGWD1KG7gM/uCxPikFCkqRykbBKsqtkQyWxArwPT1 EKCAKEYOEbyIso2/Iz8Q Zzxu0N2mkZFSeVQmzNkz2S/i9id6yh2ip9MTnTvJUutBOF2yf9DmqINUbXAgnj7hLnNk/FSyBgArLAwF kQ/frz0l1+hp56ZkaKUD lCFPDupldXVyymSVUJbTaFXvOZpMg5ESXv5TjblpwMBYVMTtm0WNsMFrPOPLDAZJzUTbRO7Azwpkfrcb vCzMMJjLvyXS0sR4k1X6 UCRiUm2zOXCKhZGmQCGECnL+Jv9Nmonu21vZ9/5huD7Y9BFK4MHtNqVPsj/DwQaSREsyxVgOH3tITDDb AA3u9ewpWcKhl57tdegJ mtF1kymnOItZCSYgdkGrPCC0ASQxJgZ5BDa4af1efPuiyeBpFvg2GHabpkIAEARmojtLYxPn6jwwri83 gjM1Nv5+tPFlBqwwsIUi FDrXU2Xf3mW5Fx7OIwg6Yi4CKy1KEaDluZym75Q1mArXZrRSH4p6fNP0RlhpLfVMSBsN+fJI26M/mHix PfDBQPXKIaTOcHNQl6EM DRviYZzkAX9pBwBPnZrvIXooKhwe/++/FeDt3/y9/MYF0/QaYqIQAsAIdfdq+yHMaZh3WT81n0JpuFij IUw5xCySKuTecYcE0HQQ T17Wu/fhk5whr9fJKf9oPLJSJdJKCRoG1Eyu5ixy5ldqVd8Yucg0fRy9ZcPXqTjyDY1sXTX1pFRGoQv5 +QV8ouRCUYqeuRcBBGGy MjfYoeTMTVIwnJnOOR1uN8mNwh9exs2i2s+Qiu01WDvV9TJbyTN3j+XmawuL7tewoKtiJObrGXIO1+rr RRodHTjJFLCYKCVCvGrZ 9Qo79K9HQTDmi0+s7mvvaSJfWXtJge3ghVM7e+i1+t/FkC7yq1/SNKKDFoJURcXNUcBOGxWsd0INOwbk UDQqHHjeQsW+vjlJ0QfY h6ssDD/SBpn8Sj7+1mmeLUHYu15qtABMCiNQsgCQIotSX/oxWfSe05E/R5skrK0a1n0/kPe8Zmnrq0Z7 odELFNbT666tf3wBAOPD wPE/UKqqLDODLkAyCdCrDZGOMvxIWEMAzCLYKsMjtRWCFMUtit3XUCYeGJQVRtsMRTGMoVUNNfTxuFJY IFBhtw8NRKFlBIMVXfmS TEQIuUZFLpBqnZITTJIhgc97W9/Y/2kXSzj7+hJIxYEuGxmIfnWR1Wc67FcD3epjvXkh5AeBCcFt4Ud4 wb66nk9+/rGI7NAwMzmE ALovH6YZOCH6WT3qNkWCxajtVCXXNIcv0iG+c/s2F79nnct6au9J9bRfmjxXY1NFNFWyo0AfZc2ww1tT Wt1HvYwg612fbSTzad8o XyrOv8fcak1awmagBmn7gUhk3xY0+hHAw75bKFq8eYudZrckHm8tUlXEVJ9q0t6cZp44MGXVl+ecb804 m3Og2tSIPEaBtWY3ptgT k0b6rx4d9Pl4RfYT941gha8K82UTPa3CKSnq9ttFYPDex5SHvAiWu66mydDPIIwImVVr4QdgRecILcZ0 HvggEgk+jslxvyHSUxMn Eb17pKEcdEv2vWxl3bLKTdWSbQhcMyjgxXjYy5EsSaPX34xm3KtgM/tMottEVyS7O5vcNFXc2a1UEnKo YPYyoNy0SDwIc0AOX7xv sLaClMQ9+9a37qc8+QDzyrVLWbf2UqzdbvcCxIMBA6bBz815EdVNvD4+PV+tuxqw1jpujcXAzQZs8IL7 dACdm1x2vQS6a779WFQB 8SHM/V6/ZGDh/zK+cat4y6yfx7kCUt/d1zMfYVLy9mbmSHZ3V++6dS5c+Hyo7/1cgGVVwTKcd7+esSI6 QkNV0koEOKFoNFM9GjxW 96/Q6eO/W6lKbBOtxuLn5GttaJmOpizXrcNq9FB7CNwsWLswhFahBmnLBrDtBwIKz+PHVOcWFOmTeO/a J+bm/vj+UcreNtGg7GP6 ZDcPz2gj/0qfwhw9k39rQdj39T77EFT64QU4PmhGy1vjTA/Ln/z+g2/3X/uCHyUTidY3g8zpM8d12dbx XG/r/qkW2KE76/hA5o8W d87KfEZ4vqFz7R2NyIsu4vy3OCDqXRZmWr/e/IkWlOd9ae5Au6hDs8qSgDcrLmANiY8fTFXeAUTARYMa Zzgi0gbIa94pI3pAhv6f JhIMSo5zrTV9jVVnMWQw9h2/HyAHPEWQ78x6wGkkXmfCpNJy5n6Q+TiNesFyAd0luIYj2XZZl0qcDRa+ tZGlWXAkYeIYZ4b3zadk nJag0UeC5Bs3eFqlRvjx8fcIlQUPrFFFG7FUnJJi9pf7pXJZJONzWIo33PKPpTEUX0+dSx39Tt1SUUyU Iu6lbc2gZouPhcvQm2+R XhtC3WAYR466aKLX0SnLffvXpA8xHbEwm311+4l4cBXueeJic0l/ldJ278DHdgPTzaI0Hi3CVatJ2MCF G7tu0BcGYdddqd9lU0Ym xpg8SIF28QBr802fIWSki5EczjUyhq+9Q2cHz9Rt1/f/wT52wEDOja1uFbQAAzTocd32MUKkiQkgBtLf GkzqcxSIXIcd/5ciEqtc qv8VZRqvik+gt7785CmCS+NWhMeHvbg/v4fHurPzTEGq5b1pt9m+Ogav4FrZAQ2emiPXYsxPfQfrUpgI QzWaNVT4wfJJnQtegeZa pAHEk8z4fuRlyMYdpl1xmDXhra1cwvXHF4dFPwW2Tg7Cw8sTnc7e/fxPxtpGL1FwPRa1+mirYkm8tXdn GI6EEIHVCqbJBIdTA9Oc bBFcWNrWWOz11CHqFDmR6xosQLLk/y2nnGOFg9BNrc7mfUMe8ltmEANeTrdzDYVQpBb0yy5w4uudCk2A fDh4dEx3trf4fyuPG+kj 6DHGWGcEXAIOHkp5vd3LuGxwo3KRw2WwKGhmpn/rIBs8SfN6vBi7ji+oy1UIe49B8GdEIYeyGF096fnc uWW5q6k+u2u3PVnhgtWO 4tcNsJtASnfw7R/yglOm795/3wUHA4zgs9tI8gbKQXPJB5l+0eIZKaDsIRGCDcNo1paSiiq4+SpU0QdP PNAg0H/6pGUzWr1ceXzQ Fodd08bms27gVqpgNeLsVeIjfnBltaDl23jZMWh24vYY/7Ytr1v/359+t0KUWdrmFRQT9rJqYGGLlBpS 5Sta5vUarg5+3dBCw4Gd 1WqC4eZXBsU4TLUSqOh3yOZyXiSyactjiq7mXNXmMaCmLW+/L5zfjcj4qIQ9GTgKTeJak17MksMFtUNt w43v4wfZURpKj/euZOcn BcjrmZxpgrXegjbekY5a5bc4BPkc47/sVhcUFE/cXEWFxdOYu96ElBC5k1+pA0tvCI0S1mQuKSJPSd5i SHnQiwuFgAQBJGWlrZm9 awYtNSM3MRk4+p1a/TUAElq3Vl7th2+TaGFTx9tbBv/9bq3Gt7kCdhtpEGKugsOIqjKkfsQ0Hj9pk8SJ 3ciAhdnXv00ARcoLSYiP KKo2icIU8JMqpFj9dxPym8tD08MTseBhECC2lGp9e9xHBq5qQGXwnQvVK4mVjw/f/isYC18CuCLle36B Eft9qJC2nq92+aNm+zt7 Kq96eKgNUvtTIj/Mm9wyKdtD09h9DKv8QKtbymcSnD1qr1+QJRmpUqZMS1bLMg63oxu0DUehTsq5H78g 00bxpn2a24VAIwMImyv6 FYi82lbJf0gjhj8T/XNN/C+N4vNp399c5skrDnjU8zFk4IKkS5WLqSHTi49z1WX0wW9bm6t+/v6+fv6V w5DWSItYn1jTq1ZspgJo w28lxBykqpHI+wd04ov3XCoHex9LFUmuDiFwJGoOrmzn1e72FfFn9Rqbky4E4/Edr7FZTfUB27rbruD+ 4DQN3Wgeqy8Bp6b8BdDq BOS25BSf1eWGzF7mXqkH96Mpg8pD0kpQ/f4+/pt37rN/OCjhw/6gv333q0jDZMY4ZUu2Lbl1/j7+u3Y/ kf+0N07d/r7+pXp5FhZa Bx5Z8BfMntQn//y5Uvzg+BBkAW99FxLNWKiNbotkccpd+0z868msMf4bzes4xL5DBeUkF/q1lPURO396 YLO2Evvrkb9zETKJsTSG vlg1hIkS7Z24ahYhGd45tMb41xNhCBfr/utv6/f/7f2Tx59yoXXBM8nhK07DgW1ybZus7kKZBQzP/TyZ Ofvr2P2n/Zsf1+/7p27v Fa2keVHsIJg5Rsm7/UQhAotIhMwRQGgSUAiUmi5rF/Nn4i0TEvReXY73AoWaKpHv5splp/hpkER0vkzk uwDBfEPeKf68zV1vEW++ snf12/HMr2WQV+2dStf+P483oEk1ZQefdwH28+BpSl27k+sWwtHIbl28dBdsbImmcwL5Ol8ocIATGlr3 rv4lfAMFJ3dm34vGwF3e Ja7nkDM0Eh25XWbsYJnrlRiZfEY11EA2eupcIvRsOoSETDA4jpbT/i2kgU+Gu2f2o2UmYpKurF2TwmYR qXAMw6s7++u00gtadAIw 3ShRcIj25t967BDLXYe92GK2GNG1uunnz8WXfaHvVxJ476GO8zD8DyX/QcO/Ir655LXqyRTC/HwwQOLU MGg0bRXk4Nwe0qe9UsgB TxuljXFEDJZWcjqfQoKPJ6Wb9BYQ7qyC/4H9x+wKvMRpKamxr+JN+36+CIbHVch6o1go2Gh+L3Lk4krD 81yOV9Of3iTozCkYbzWd 69wEkxp3rxgzFe7asAUp3iAivh5/rfyn01jp49qb/ytDHraUlkG9wL3fOvVub75iLBpHOW7CiQyz3BDo Lb34peeiw3ABiJgDsvgq efrmSdMBVLZ0speONMRaEc/YRmQeAMCNOgp4tEvDDb0p7rxOZ7/srBGIs3ib2ii9G1iWu4MH6/PuTNnZ 70mjzDGCy5VXbok8nmOu +fN9/K1of7TMRndLR1na/Xj8e87ZspOUd22QBxF4Qr2mfY+Ih8z+blbj+7cpbz90JGL/b8p0Fyqp77hl /zpTYuFcLMT9p1EvKc8u +Z5SmXf/v2+twzXPT0mStvm/jt2GoXc0RgDkeeE9Ly4X4gD3ra9+tAJwXoU3O8EdDyzcmUwL6dSjdoPO dONVrOugGPk8vhGGnfn7 gj8sgbIFcxIFIwvpgShY14nhd7nSMsMAAuphBCaPOaPoEXy8Yxh601ZnbRr9447g7xAc9RJKo1dHQonp ERu35mrnZl9J3mZ6j+DB NQMrFe/vtUsbt+61jHJslxLBfldKAJlITLVGfLlTK2swsjvCG5+DKVqHfQGj38achneXXXLAOdPkfH7S vtTjnZmBbebceG71chqJ 9i3/9lMziVjiJpHk5+PBd4+Ss9bd76YC9b1hblAHRNMZXSP7QIJK8YORL7+oQUXcnb3q8/8PHOWVQGSJ IUiEQCIxWKhUFhQOvlZO G9+OQEoXyYUo14oBTOW40xHRciQkEt/z37x/EV+aGyCkU1svxNO+g6jNAoi6PofAF579oaAzu3vBqXxF 0+vpzs54momUXU1311xv GWDziNEE3fyA9OeDJ8wEZLatBT40jK162X1z9+/evWqX//+C3PqUTxk2k5ghVxhBmqWu7bKllpS3/fN8 mW/cd3ZmOZpQALW0BBf/ KRE3bzXpes/UoKvRREqWX8vgzMIzOABuT4voKvKbGNR/bsbGs3moFi8SRZ7oLqQ/97mBAyyLGPS3sTYP LS8t4/CwqUM9da0NZ3+f lJUcIcO+K9DVnZtBCa0aYQx2clYA/miUu0oS98k9wMfZzlvJcgnFql4/Z/LzTGgK2Du22QX6n0tPCp42 uPHjhczzcKxMHF+0EPII 3RZVBqra8A8Ls+CUjxz1Fea5VjdOOAfTl/9/umRfToAZBsxF4N5T1ESn1y1tOWukqPyjptoS6oDzQaaR It6v4hans8TPDAfkJwnb /UKCeQs8yoAZmOxRdex7+NX31OgKzE+2N39z7yGVJMwdNIqGbzSXue0K90P0Kt065zftv+6Z/qp6afL3 K6cIqaEi07Egdjf46Vy7 WvVujUAXA+/ppS55Yzw2FfE065VXKxlxfHbe0a459/hT/FV2hMo9+rVr//OkpPCDk9zMRWdYax7pO9Jr AjhUSDLoCvFum43hf1yt AsHTa8w1JE3lYM4+rd1/WxZunDgP107nNAqAbeco23QHPGrzrDLVwoeWTnwVgpVCCwKO/k45TfjgCzr8 1jYMajXqvSb8BXOS/lt/ iWRRWBtPAQ8Yq8/zr4b+PunyMzMTExIrN+hnJ7XW86ou/ts4NQ2Pf+WhhXtVZDSE4Gw/gcBYsTQjvN5M 0+A53e4r81u+Ob1m0k// YJLE5wAHfkr5rfZ7t18S//mDQD4+vn6+IH0AOMupnj84r/PGRkZ/DuUBWBX7e5y+VeROwb4wDI/wsEDb ++cenYEILYZgIx6Vn+Eh gGtDXaELH7EC8yD3Un1DeSGGnKVw7G4mrx9WyZe4Unts6axqKTt8f5yOw9sljhzECs5WhbOGxdm3Neif ffIAODB/pkHGj0zy7QWN p1gnAL9fTvRPzoY/f7gH+9NZNaFdZqPQJLD6lvfS0RS3tYVcNkQBg3fk2zk3f/lJ0c1GXGI4X7bjNhJi F28hftD4So/bldAhwIAS MRaGOfJa6Q4ujs6w3ImC6havY6mrtpqdV4L4GT20JcVWXoPElwx/Pj4+wK56AcS8Lc5e0L/o8ipUuEXZ ahDAYqiBIFw4caIDQIMG gRnZxfzVpUyV/ebGcXbfnkmYh8YCn9YBTLZTGrWNznmJk1OngS+/AOhuffwZsRTb2qf7CjweqzKdIs8B KMp21M7ObYhvsw1+jgq6 t743HYIR7Slfj4ucT0LTUc1C17al7NutuuwzxRXmAeBw6+/DnAsZCeczip7RpVSA0DyHg/grLt2QZmEy QGaB4e4gft6qL6fcDNli Y9fwG/CbCG5UpUbr3hLkTp32Pbu8uGxuqYGYxITPIJnqT+LZbQcLiM51tTUR1PO43dsK8pcFTGQg3Bkm 67uOE3XuIVO5NdXZsnl7 +GHceMNRoPVDoWJ+w8obTw9dBGYe/Oy3Uuuj3zu8BW0kw55muBQ6xd7tdfDmi2cLhEfiI8cKwPzVv3c/ 6cLTC65cs7wh1qtJfe8m oq61WQtye1+okN9MBs0AVfClP4wNjnOYEJcV3eKxJtmT80WBQMuCr4zY07bWAnejyAAFrqAwCXBrCwfB CqRc05MmupGwycjV4No4 3RZFSwKDv17J8dyV60oIgyR4OGQTGVO83sjIMiGjCiZwYmYnsDMMZcvrRGt/Zsqpx74WKifq8Wc2TVfU rMi1xOwdIxZdP8xXmsid i18/j67XG8VDFgCK+M4bv/bfNQJKnhELgXFtp3sf2fQHKIWcYbDT5W5LLo2/9dn+MiRABD/5b3FOWK+q GNSoWLFPn3/9/9POd1pE 2cZthAbCk+Ebl3BaJtkUir4q8gydgdapU7dz5e+k9WFbtZaw1lAUIbkggPlC2ZlQsOS5p3qFYKr1TeLv TlDHNs74UvibjDkHIhcQ Jib+N794KGrEmoqk0rx6d0/+gNDdw2Zk67sf70uZRe2b5yaRUFD/1cg+GArG9+oX8LdOVM/ruM/dEERA tNbnCjqLnqvJPBeATSat 92xjzI9b+zHz08ErmAt3BAs0zDahMCpSq2wLAkQwkZE/gXQFjHE0Ztyq5iCu24rPrI4GWny3UvDai432 ZN2KjSkXkff2lo10TuF6 9JmLmdYQd5yFSW98VcJ5a3QOYpmYeXWkeSbjs21wxWrwpzfZLtmDG9YT+ck6WO5A/htmoRlK85rRijsk /4jAGbIQJ4qYXm9rtr+9 7HPmHU2DoRz9vhcyA7BdCaoZIFwc0zq/HrR3WpVDYqFO5jwkGQUft4pJrKiZQ9kq/L4ib+ybs6vj87dB 5/mZH9Av/5E27jtYzWAr 2snWkZMDNSBiHkESd2tU2sZmLWVhBBYIzr9YZq1vQVaaxmEjEal/Pw5KS6gMrDyhE2BgTvqguEFlPhqz tIzLwmoOtfG6WmpZjCbK GUGyr3aawlhru+qrTVHxPAuCsDqMTWmi60/eixAzcZPL31lnHnjbmVJx/+yaNGzZ8/wEd0iPulrDx00a nzkqNHFsbWb+Ftrunft1 t1Up/v27F26+JfuPXuYDzN/BB/3WeA1xb920655du91kzelrx/zSuAR3FqPv3Uqybnd6ODeDpFX8Dn3/ wrvK9DQSIHQTqNFrenIC UxPCWpvxgUFvT5our8ik3+LRFL1J3l/5WMp8pMx5B5UpkpHhSspNrcb8adpzHHgbk6X+xfkffYRKBSKi UdWZQu46jCo2+3s7j3qE noOO1iQgynbW09rOtRUFqPAagQZeNdhir/Oyc6+ybWl6jJagx658yBhGdefKVRjNy1cNoa6WWErHaVMp l9NPXhYEoWK09cgJLrmf K9JmDfmxyo4arpwSu14zNbeGb38UdQeyOiszpfnyaonvmbaHCUKjJQvFJsqWlRYNDyoxfDpRQ4xq15fu rBw70WAlqTJ6aTzzYeq5 5AIqq0qcrYo60mz4/Umj7tyr8yecDf6ONZtKFpg/UzV1LJrEW6E2h3m5m928YPFXIob6+fPBw8Z+kHZ5 9l2boFpUW0YgxDQAPNG6 DM2DEZNeasZJMC2SZD29htzv7gx+4x3usP2AY87g0itMwAEd0zIBkP1m8YvUxqBvy01u8/sAweqzh9fh o7cBBizbKsnOBZV46UbV juyz9Zi2JU+vD6zI8cL/2sFoqQbnBDUbwP3MjyGLAzB6u+3Xz/e+eI2LwqHpKw/K5vgnh5h8Dnnw5uV4 65krWwtzBCZxsBi7EsMX XF13Ihi/1Ub/r388Dj0K7YHcFa2o+KOTVsdslL70fprGYJiGIAWwkyv23907GpR5oK+ko901uUHtIvl1 RfBdpU3eTfe/+4W4qFoO +XOZFKwGUz37Vgv9kj9s8vayF+hl3kWbonUuemeBo8QamvHvpKK6Wm68xP7oIHa2w653ir8/B7wwWg6+ /LeftW08Q6myyT+2Auvu Ud8WMVZ8Zd/jKJYa3uoxc0bdqIWLCXfSeA0EdDvTLFd2juh0g02h3k/AkBiYuLkH3/K9ARX8kaZrBr3R 9HdFVHz4sVHCTzTlcx// Jiz0Raqb0zArT9e88/x8hiYMOFg8o901IDpiNraGW1+xVK3iHLSA8u3WGKMMNNtBAu1XF5QG5278htYf 7Ls+KIeCBVy5Cg+d/Jvw aKQdTulHjkrla8A3r7Y7+/b+/lr3wyx18svfphNGPhP+nrsQoFI1Qp2zoWcC6Duykw+epZX7hgXlSnjt fbg/IUL+Tnwf+7evXXzZ onESg/F18+XyuRcx7sSO3QhyGNjEulaFTChNWaoBF6/wmkJuajPSRVu5GDdq2AZwRxR2CBxFNOKNwlD4 7Zt+FnOY5Hp67xzCqgaX HGF7Glsd97ULQJT/4Bkl8hLvk7zAROb3E36hzPHxyhx+SjDxmup5rSJj6SYmtu1EzNjsBvB16/ggPwRD PPyHfd0uaND7DzK0aWDU Tq+ZxGbZ0ukQSGFwQyuhYUM5apZebjYu3UsgnFinqEDBnZZYDhdfJ/KbYq6LiV5Fa+sXzYWSclrvM08k 25e7fhCf5tV8ioc9Xdn4 eExf+JEydRnNn6lBljlleCTphM9zZJT9QRwN7gCXAo5isVt8TgGskUSZNwpt9JVsIuYhFWlMHuiNwOj9 Xgo0gvX6oGdoFF2z4UM1 00L0SW9wgQWrs6/AICnp+giinzZ70NZbWlM/udGFNUk1dw5b/z0S950icYL+5FsaLb4E/6CoBfQ3zlmU NXqUMKhinWfwut2a27rE vFSfg267mYAp9ZJ2ikZvhAUqz4KYUEtVmls/G2vWlxT1xeVvkRIqb/zHvV30zAE3N9txwXhXpxeWDdNg 7Wj2DRkRpNN9VnVrC70T f775g1x279d5N2t5rBnX9QwT5Q0gbdlBaryuEEorLCSvBY50NggZxbl6r67P8w6GUUzFc3PZUeZ3ipkx 6F3shq8RJYN252tl0XpL gRbCLkBaQRfTRLfIcEl3h7jnhDYHwTNVk6BVHOnfs2Kuc/elVk0YYYqZlj+fetW/za4Mgci3YSN8k9u8 gtGVuVIAn7AEpdwNgsCc yJIMhzrmggHLcCy2q5butwgoIcxNLb2HGx/sZ9aS0c+EO8XiulCczPAzoD6AevS8zQjPFZaTw84UirXf X5erd9rnjdIIv1WPFgAg u13oJfEYirvcg283/ckGYZHc7jBSumr92PiFtMoWxgm7cEedcYDJf9m2o51BVOatRjWFWvDo31E9FWq0 uCzdg2yxa8ZzY95Sc3p6 +margret+PRn36kcxWvt5fp7M1vRVqyMbDRpiReBG6h/pmqFJIk74PtZh91tN1r8H8+gRWj9cdvd8emaqDQ+O N6mu0av4JbYrB3Gaj0nN v255Sym6vkumFsgjw232vstcf8bv+gtSExM/I9c68wH25OSb/gR8/vBOGRuraLXpXoz6YvbU2gqe/CoU WvWrlkjFosDAgNMfppW4 F1kTISuLvODgSupT59zuUIltj9vpFCt8Ue7Ow75si/09zWZP23LmGXFKEeR79mp/519h8TDGr8gj1zxv 2zadGDf/uVLl5k+XQEAs TGx58+MDQGYwd83Q0DWEyL8KAyt3+9oDHfoeKt3KWWsybuQIxEI3Sv3Tr3kt4d15CTs4/9ISUlRKpUMw 0ujFtOTiGWWSS8nTsbt7 UWPYIb1cGMA3/Dge0WiBa4RlSn3N/v5s+u9SBg4B+b3F0uQrCh2z1aIXdAEtQrsgO9/f/y74zVFv6wd0 isA8bCPrusAFWCfDgNvD bVWzoxB9281v+6cOVqNtk/dzdGy6K0e5VwnnPgyMMX+KLYitrfUjssRxkglj9SyLKKQ5ovEmYwLXF52W K5S+feWWaeoVh7Rkp6+T bxAKKBIUqVSRT9+xEFqgaYVbt5PzICrOLek2e5e/QrswSZNl0aoki+7ju/MWDHwM52AaVMKMUlL6a91C r1evgjykbMwKTI3BXh1L fKbpyNjaIyrMSRap1W/7z1i91WCZlZvJyKG5knF25+cl2va1dx69Biy9QXCaKxtpTVXtf2wXtobPuysc Um8nMSXXZGXGjjKII0Nv kXmf8xpP1UfyP0dUxyqeKkj69ztqta13WpMoIvL6l+UKCDCrBrosP4wH+AmVjtXrVCPnygQhD32GpPjw AYwaxY5pLrLj4et8naaH vf1WbGTGKnUsEzmuf3LroBtd+hjNX6FM5lt5JTiVI1fXFIPal9RtuWeTBEJCYW50di3728rrxlQTka/7 O4gn29pL/j5+mYAe3owt /WXqE6vL/V1WjJz7+uPf4ZqpSD534+fP3/73B7a46b0kAe4IiNLoY458/UPb2q6i0g3Va8ZrvM2bwvb0 VdIM3mKeqIx0mr5rBOCN s6d/lWDr5eOKQdQW+LPKvTxYgYdWJzr9gIB+/xhPdLPFCIFVs125hxJO2nDSuDh9S7+taT3F1L2vWDye bBxce904cxya7x+3L2bX 33r0uSYLBGDmlQSNlNcVg0sq/fcbOnNQRyBNvaCB2aCU0FXAO4mMi9qtDBUmZaEBr+/Mb2cNwQatUfm7 jJeg9FpoEUeb1mednd5B UsbDLwIAkCbjO2dhgbk/+k996kiny7tk5/DZh1MIEYO8l9mhIWOAp4etqdkSQTXP/lNxx8fKJk5TZzAB Y4IrTZZbK/+/uuZX7956 MOa2kwRXv+9ZU7s0h97b+/Z84la4Vueu6peZFBkpwvzR4TTK0+u+HUAmRuCN3Delwilz9a4XAcFjRyBg EqobzEpShOAuQJYc6Z4P YjE0U14Xfw76ET3m8vqOeE53VJ9c+3dpZdKJIMoCUMFNek6Ng1YKhQHpsVdsE//7nLzt2TYuCLILYTp7 y2zawMdD2UE1Oh061k64 1UmTC1R79kKoqDuOZ1PMJO1XYp6z54ybkkFLFk4/2yCd7xy9TO7dpw9bZAinoiRCbXzN2+jIUwGvxB5c ypZypurt4qlOCQQ/4ED/ 6mPjLAs++D+n9jXa7B1ilCRhCpCXAACBCT1RBdnGYT20rHw26AVYaVIHzge8g5P0rxcskeel3Fhz8Fj7 4RrL0lAfjUfrMttUv4UG PGvX64yGwd87fRLGLDadNngrQv5TiDu0bg/7fBk3OQSs0V3fmGo9HbY39SRTJrkqKbfTWmkOAfV59iDK MKVEB9/3SSZz7Cw2+Agk 8oQQkajQa/Dmo8byHHPLh2orxpZgLjr2arkuk4AtQjG1+weY7aaxRcDlNsfvnA6+ugWv0FpvOfhTAc62 oWLd+4fYdnHRfMO8uyZg 0HzPzStehe210HGVuy/TIJKDPpooUZZ0ZD1EErVm4AkuTkLefc3sPwb+cJgMJh/A//Y+CyTc0L4tlDTl mAwpQassDAYTKkBKywMB nPdiNnPw2EWMwHVvpTwcOzbgYDEVOtZBkeXByJktNsJh8IKEmZKizVqzBomoTJPRMwCRezEDmQmoWbJw 8GUGrDCwmAwpQassDAYT UaMJnhSIxYeuCbLz6JKGuSEenDyrJlauFAGAWpJXupGEcInfLgBp5RCOkDG+ga2oKxSfQPnLi/++OOnz sof0k4vDkr9l04k8+joK BKJ+fqsolMOso5mIt/m1g55rKPP2xl7X0jHznRbJfH9Rzx09ey6ziq729ks6j0oBy7WAQXe561WqmTAR nMuIhGz3KIC2918vjggg 6OZFS7ck0/P8BSg1ordPxvXo52WQ7+0srOlVDvNBYgTgwuo4q2wVgGfxfq/VOqs08Jqcbl+qR4+fPj/z OjSpcuuXbs+dn3Xfo1vK WKEaZe/6d530uap//6bhJ8VCFQPYNEOGNqyQ8vrngHbOF4YrMfOXE1wZwYUR5CL8rZfI7EMh0366b/+o C0qbqLEk629Oonu6aVUT E+ePCkk/cKguiYJlf1xVDcWmEJFbFv9fRwMGqDmOH6mPu5SPKDY6kKOv4uJhh2MR7iQwJyPjwGVn1aND Py423Udz7I2/ZkzVSqV5 n0La3JIFHGodk7/9IzGj33f+PV6C1FA/mhDHPv5YQUL6KBdAuzx+uYfjHDQ6jfkAPISyXOtppB57vCfN SW+XvQECYw09cR6afo21 62lX5MaGB9tHg9qlemNEqCnpQTJQ50cYdyIgtei42lVf7s+0uWBpdqwLhnDwe47+njc76ARvfgaAcwBY j9lSIGR6Azq3Rf4SQmrY v/23726A8O//v179+6gKKOhLuw487fLrBpB72abTgq4ryZskVv9+W3p1yj0thhKdUU/nIyJgVLn7mF88 tYLTevC23UWPr+7bt26A cNvbBSfQ42TOLbASHjKdlv6lY/p7GWDZYYf6lQNRdkdZ0vIhEpgzsRAaHzFo4p3dBrfWp4Vdf0Ndo4n6 rfXMSDOm8wiUeE810/z2 /gAiQze65e02pi/ZkynR4y272GAYku/HXso3jf3F/Pbz58/VvI4rskdEV9nmBbToVBkiIotwTHOakQ34 NylGegwfUg3eeIMSsmo4 GUcJMkuGTxKKRdOdYDJKZkPPPkvgtzENf5tUEPxd6WZzDtw/PnzuDOsQHIKpFmIndZw1fz3sfUSCBZHJ FlZWQAwc+bMpKSkwhWWB DhoSwWF2UTK37MiB3elD9Cd0AprBG44FKX9Rb25gEy18hFFrhQek7ra2xxVMKlTPWKDceh+99G9hiz8d 0clGATn1QydGkIyHgRts PztjuHDh/GwMLrDGCRe7rvF9WyNvvFQc9iBdHVOHSm3gtQpWEECOF8wkgUdLUlStG13Yp4f/Mqe4iPcC 5fVYySKO339toFirabwr NJB7/tLQpHkLspL6Ee8DesyeXi5jXav8ePzyTpHel5hBEh9+/ttE3DxCfFs8LaapFNvZFNWJDqmMr7Re m0Jw9TM56XWouCqaDFo7 29yfoTlVVLD9CF7RVFXc2IgrrWu8l+es9sl7t6rQqXVvOxCqiZygx//wnurHPhMMOJbAn9HsCy0xv5Us Tt/++46NFwRItqK1xYZO 6EUEgCIJocXP151p26Zr5PlAEzzkMfdx7q9SvUzaO6/v/gR4cL549aJ2H+M9fWNk8Xssx82953ACp6n4 OyfhP9QFTXYQj1CBQxHK Fl+tpzzDsDGHOoMRbslCaSta7gXJN0H0VZvo0EQdLwOpAXHM9fG8+CRk40p3t85itJegeal26531pKFi QAAc+bMsThYUAtLIpFYH SusXr26+KuugezZfoNkByDOiqHkHp7CCNe1ieofppAtIdVhOZ6tqjrDY6dpF4wxtewYNV5ovtO4ORnq6 Llz+YtUoUKF/ZT89CZsD EMK58AwYgGKB2dRbL7a7YSuG0Cvz5v64AhOUvSt4EngQlVXqTcEhN/o8Z6CBfoMgYuZQx1y2my/+uqrn JycQhJ5+fJlMbNDCFnkC FZafxZPBx30Od9pepPz5M7TiQGw5qjOcGrxIkmej6+QDxFQ0gb6+vqacjRhNYUaNWoAAG8+N3XvAnrWu CASLbGzg4AftnYWeQzo4 QQwSKEv6sk664TeT+1whIVGx380TUiTR/4b7dZsZ4606550m+/dARe8HTAPfoWvzo5DVFCTYCYoiuaCP GVUbf3rkTkoBk653evkk Hs7VH5hNe6nPnb3EgpqIqVSkQ088AivhMmceYcoL21yLW2SHaTpZWHvx975e1XtrdWQCnDq041/++23c mPNMZwUNMPhPkrcAV0g5 tuGFnzvX49HD6BnDOZz8Xa5n+t3kq7l1ajYy4CoId51UiGm+tRw6Y5I1qdTFXi1BQO2nhVU1+My9KccV bCHeGu3CgOFHiJXSh57h dZzCsos2OIuIfd3jqy8LlL74P/7loegZDTzlJaw6ppnzAEQ5geoNHjGV82eQWerQTK2F5Z8HGIzOAXgb rD6FKmpyC/SokuIEKpfv r0D6aGSt5hAUToq+s9H4W+WzTPuQyVEEf4kgaSHhvp5Ai4j1fLu6ym+tqWbi5HSWUBFfl8i1v1l3Eag9 dy70jPjztL/ERQUZApat UlYW3b7l5g+49atW/uMMFs6kRjRn5WYlvffUgYPGvKGCvY0sWqR32/Lbm1Qxmtg2L5FyjodYmB9v2mX/ Vmvog4KmX42x+ePWJASx 2hmvTcz6aaHeCHT8Ah5zoDk421ZtDvTX5k5dJYqAq3IWmUs6lT14hsKIoo2ib0iHyY5waq1tlYSFMKQx /kak7h343+/FYlEPj4+j u1U5nnQ33aiF5+syc/z58+vXLlichMHgJ9++lrh7ig4gkf+/d8o961soWv5VxjIqcf2+/raDsEgQL1qG CrBzYlpw9T3Ae1npKq4j qjxcnBjAa3b8hwGaTODC5qm4Oh2rVE/aAXDjO447z4+/nSyguOpAodkWn5zigJimtUHXd3m1j85ubRSH N8BDxRAgQrfBAvfvnAlG cixBELDKqVUgIz2J65njeNZwoSuxBLp3vf//vrr/MNymH9NejSt5rpE8TgoFzJJSkMrtqjwjKIy4gknL pGMZltdKFMT5FgVCD5Ak RGmF67sax5uHXBYak66WDMRUg1in60flCkBcKcqG+oUzBpXBt89tBNk0R/YllMrRcw3ZnJGqTkJMqbZm ZKlgMzQk1MFOnXGwdWty LbfaTDUOAmYYyuRQxZjvXiVf5CKLvNSsoDroFf/A55RS/d1u6OBGJAWBFbUUiInYbEP></span>
</div>
<strong>Patient Name</strong>: <span class=clinicalNoteMacroWysiwyg id=[id number] macroname=PatientName spantype="macro title=#PatientName>ISAIAH MACIEL</span>
<strong>MRN</strong>: <span class=clinicalNoteMacroWysiwyg id=[id number] macroname=PatientMRN spantype=macro title=#PatientMRN&qu ot;>[id number]</span>
<strong>Date Of </strong>: <span class=&quo t;clinicalNoteMacrTaysestefania id=[id number] [...] which might be better tolerated</li></ol>
<span style=font-size:12px><span style=font-family:[place],Helvetica,sans-serif></span></span>
<span class=clinicalNoteSectionVisible id=[id number] internalbreaksection=false originalname=Med Onc Advanced Care Planning recognizeconcepts=true spantype=section suppressempty="false>Advanced Care Planning</span>
Not discussed at this visit.
<span class=clinicalNoteSectionVisible id=[id number] internet marketing analyst albreaksection=false originalname=Pain Plan This Visit recognizeconcepts=&qu ot;true spantype=section suppressempty=false>Pain Scale on Today's Visit</span>
<span class=clinicalNoteMacroWysiwyg id=[id number] macroname=PatientPainScale parameters=LookBackDays:0,ValueIfN ull:Not recorded on today spantype=macro title=#PatientPainScale(LookBackDay s:0,ValueIfNull:Not recorded on today's visit)>0</span>
<span class=& quot;clinicalNoteSectionVisible id=[id number] internalbreaksection=false originalname=Pain Plan This Visit recognizeconcepts=true spantype=section suppressempty=false>Pain Plan on Today's Visit</span>
<span class=clinicalNotSelect [facility] Hospitalysiw id=[id number]" macroname=PatientPainCarePlan parameters=LookBackDays:0,ShowComments:Yes,ValueIfNull:No pain plan indicated for today spantype=macro title=#PatientPainC arePlan(LookBackDays:0,ShowComments:Yes,ValueIfNull:No pain plan indicated for today's visit)">No pain plan indicated for today's visit</span>
<span class=clinicalNoteSectionVisible id=[id number] internalbreaksection=false" originalname=Smoking Status recognizeconcepts=true spantype=section suppressempty=false>Smoking Status</span>
<span [facility]="clinicalNotK[facility]oWysiwyg id=[id number] macroname=PatientSmokingStatus parameters=ValueIfNull:Not recorded spantype=macro title=&quo t;#PatientSmokingStatus(ValueIfNull:Not recorded)>Smoking Tobacco : Never smoker; Smokeless Tobacco : none found; Vaping : none found</span>
<hr><span class=clinicalNoteSectionVisible id=[id number] internalbreaksection=false originalname=Depression recognizeconcepts=true spantype=section suppressempty=false>Depression Screening Tool Status</span>
<span [facility]Not[facility] HospitalcroW[facility]iwyg id=[id number] macroname="DepressionStatus parameters=ValueIfNull:Not screened on today spantype=macro title=#DepressionStatus(ValueIfNull:Not screened on today's visit.)>Was screened; Outcome positive: No; Screening Date: 06/18/2025; Screening Tool: MD-PHQ2; Total depression score: 0</span>

<span class=clinicalNoteSectionVisibl e id=[id number] internalbreaksection=false originalname =History of Present Illness recognizeconcepts=true spantype=section" suppressempty=false>History of Present Illness</span>
<span style=font- size:12px><span style=font-family:[place],Helvetica,sans-serif><ol> <li>Patient reported that she has been anemic [...] has heavy bleeding. She has consulted with production mechanic in the past, however unable totolerate oral [...]
</li> <li>GERD
</li> <li>IPMN
</li></ol>
<span style=font-size:12px><span style=font-family:[place],Helvetica,sans-serif></span></span>
<span class=clinicalNoteSectionVisible id=[id number] internalbreaksection=false originalname=Medications recognizeconcepts=true spantype=section [...] History</span>
{ }

<span style=font- size:12px><span style=f ont-family:[place]am,Helvetica,sans-serif></span></span>
<span class=&q uot;clinicalNoteSectionVisible id=[id number] internalbreaksection="false originalname=Social History recognizeconcepts=true spantype="section suppressempty=false>Social History</span>
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

<span style=font-size:12px><span style=font-family:[place],Helvetica,sans-serif></span></span><span cl ass=clinicalNoteSectionVisible id=[id number] internalbreaksec tion=false originalname=Vital Signs [...] suppressempty=false>Performance Status ECOG or Karnofsky</span>
ECOG: <span class=clinicalNotTradiiomattioWysiwyg id=&quot ;[id number] macroname=ECOGStatus parameters=ValueIfNull:Not santhosh rded spantype=macro [...] span type=section suppressempty=false>Genetics/Molecular/Biomarkers</span&g t;
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
<span class=clinicalNoteSectionInvisible id=[id number] internalbreaksection=false originalname=Additional Labs, Imaging and Other Studies" recognizeconcepts=true spantype=section suppressempty=true>Additional Labs, Imaging, and Other Studies</span>

<span class= clinicalNoteSectionVisible id=[id number] internalbreaksection= false originalname=Laboratory Results recognizeconcepts=true spantype= section suppressempty=false>Lab Results</span>
<span cl ass=clinicalNotMer[facility] HospitalcroWysiwyg id=[id number] macroname=Recen tLabResultsTable parameters=OptionalFlowsheetCategory:CBC,Label:CBC spantype="macro title=#RecentLabResultsTable(OptionalFlowsheetCategory:CBC,Label:CBC)>CB [...]
<span class=clinicalNoteMacroWysiwyg id=[id number] mac roname=RecentLabResultsTable parameters=OptionalFlowsheetCategory:Chemistries,Label:Chemistries spantype=macro title=#RecentLabResultsTable([facility] ategory:Chemistries,Label:Chemistries)>Chemistries<table border=1 style=&quo t;width:100%> <tbody> [...]
</td> <td>
</td> <td>113.6</td> </tr> </tbody></table></span>
<span [facility]=clinicalNoteMac[facility]Wyswa[facility] id=[id number] macroname =RecentLabResultsTable parameters=OptionalFlowsheetCategory:Tumor Markers,Label:Tumor Markers spantype=macro title=#RecentLabResultsTable(OptionalFlowsheetCategory:Tumor Markers,Label:Tumor Markers)></span>
<span class=clinicalNoteMacroWyswaverly health center id=[id number] macroname=RecentLabResultsTable" parameters=OptionalFlowsheetCategory:Immunochemistries spantype=macro title=#RecentLabResultsTable(OptionalFlowsheetCategory:Immunochemistries)>&nbs p; </span>
<span class=clinicalNoteMacryswaverly health center id=&qu ot;macro_[id number] macroname=RecentLabResultsTable parameters=Optiona lFlowsheetCategory:AnemiaLabs [...] style=text-align:center><span class=clinicalNoteMacroWysiwyg id=[id number] macroname=&quo t;PracticeLetterhead spantype=macro title=#PracticeLetterhead><img src=data:image/png;base64,kRBTNm9YLhcLSIBVWEnBDbFWRSTWUFJtFBRVHUO8Wv+UAAAACXBIW CGNQF6YJUYKs CSQKa5uKPHKpszBLXUMPMe0X14kIdFam9TdPterwQKPHFGQNR04bYKxm6U9KGYhJ0epTSDzd18eRJntM GJWWZ7kXDJUSZczCXkzU RO1FiTzaabvHUSeNt4tYNk8yJ9agVQ8TAU8iWqyzfl1ICHlBS0lPRpeupuiLDDyFfMmjUf5xGQ9br4nR HSdMxGoAG5JOSDpldVvU j5cEWLfEZOxWwraTUI3TTZ7YRD7NDZnBBQzSzB5CnQdEIDoNjDoIwQqILWhSQLrFJVpHeZ9joUpHjCGC jM3kThmnsfuWMK4Hwf3i YV1Fe10h5vznwVae1IoCxF8BDkeXRSeYfHqmbHcIZL8vsQeqR7aywNcHqE8uoOpDmCrj8LgfHA6vF2yP VVdBsdfLr41cH7tSnG7z Aazqug6mNW0Ajq6tED8Qe8qzd8fAJ2pYC3as89jxOUiKdRmWM3xSPqmuS3lSfHrTOGihLGtLg8nnSTto M9mbxrzRODeAGtxuECle IZeFA0oNdGnsY0mtbO0gQkqoP9qgW7dTLBzyHUzLo6thaPhGXGySxWgC69eH2Loh6Mxc7pyfV6bHoKmW nW1pXxzbbt5dDJFZM9vg DQ7nJjvO11jPeMvc1NzVdItoB43SIEsQZ2iT78yItQfrQ1xrvD5w1GBtxX0Iwe7xHO6Fd1sgt9aXH7sA W7jz85ltOOlDzOzFA2fR JrgYG0TDCChzZZjNEZ9VM36MjXdgS0eKbKsTVF8p3AAw37kXFEFLR2tMKIQlD06c4Lkd2EvMuBqIXPzK JBqkG92c5QyAEFprM8jK eIbOBQ1RQOxdPR4TaUyNrHxLSHwIkuQVVT3Ynk6JxToSRH9BYUrJHlzbPiXg7FzNgrRJBBeXEYsIBFaK GHwWVE3AHUyAzOqJPU5E uUxSpI1eLP2WUV2KDOdjSOCNQHiFYRnBLBcHSYcSAC9GYJhViDjMXX5XjZoLeTtTtkpo4WyOVW8UbqeU GuxD5OaGcEggEachI3eo E2zLqZssS7xHF4aGQ0aKmKtgA2fXA41ZY0yoEAbU1XTRU7vrL7wCgpfBOl6PGXgUwOhNQ9zXVKaPLV5Q ivbHJc1HA38ThI5IADbZ xBuQZCuHIpwqX8FExHdE8RbJQ71LFS3IkkwtL4gyQY2EUZxLjIoOUOcPubyGo54HQS0XDd7IhvtMJQhL dUyZ9Z0LFVlBqW0rRYLJ TkJptasqW2qoOLwA6GtKZ54AMF4KuuuuJ6wfAQ7BGExFxBhGTQbYcdhPz80EVJ7VVu6NcijWFJaFdZxT 2E1ZBYeQg9kGCMpy6Ahw 1kwoZrXk0K1tKIwjRGeO9EryZ4lbw5xHEOnZerGBZl+IKjqPID3cXq+qG2lHdCqSNc1DyW2R6W7CWHrB CLzNZY6SCToMyvOKVN5J zONRjCgGTfklkGaZgcnMmT8N2UjRcqEZZo+TQjjaDijsK0bqH3xElHyS0OwZV46CX4lPNG8u5FgIuG1t O7gWA10FJszpF8lhH6nX HJkZjpTZXE+KXolJYU7gFioi5JKgnI7JKJ3nP2nWPFfnbRfjKFiSeSaqYE6hMwwuiL1UW2nXXxQTZI0x XVfkJnjLwpgVfJuQTB6E ET3UBIgYYKjZO94XCl9KBOsFYjlTZOsNDF6EdVfm9GCcjX9z6bytc2lDlWsNd6kBB8sX8RsXIdzTQcrR Z8zOlbiOSJjq8REsnQ7n 37zfPgtpoBHF5JahX0oNKXiXaJzFWqzoZ6imS8yDPDyDzIpFU2zK7cldV7jaIdjKu4tSB0hFQZ6B8AcA hS9Y0verA6KSmdiz4Zda nk+ICsuenJqLqVeh3JizCH5fQ0yHiZ4L2HaDyxUKTH+UBaoeSu4zVXkITApGoM1W0jmXTEtVNXcSW3oY SJyIj8+bfD8MOKROtVYY EFUeJztnXVgFEcXwN/K+qI0rQW8MYNermVZAe/eXAAzdAzuBXJsSdliqw0FHXlaHVZtUMuzX7gn/HZ3v x8WjtehUqMRhjC/uz92d 97Izu6+mShlZzPjFMCoVLerZOXmpMl7APjAEoJagWKyVBeFtORVlXHeEErnSJffIOUBclHOJ8SQpZgdx rYaTJIZzZOaNGcmfV7aC mD+T1PMkSt/trcWfBuL5sBLgpQGc3nNGA4auf99IQxihNFJk/hatU5nJZ3JFxRu4qiZDc5x2ry1UMIeN XEACpXHhdRicpUMvh6w/ iAsPoFhRJjVJDC6jDmJ13z5p+fjqGfXP5H1YNx6PzXL3gMPlg1GGXHcBKWPlMqMsJjA5gyAQojwZas7m MZLOpbu3yICQGkrCi0N9 8OWEa99X0EPhutSqc7l09rdRbXoxlLN3hMEZRZFWw8TGmIjGMqFqAGCp+LEEumob7+Z+kQWUV2xETwDG gtKs6Op+uQgF7Oye7MPb 3zd+8ef/RoV5NzXmQPskhVWLVRbWEFDQKHniys08/oLf/5BkMSEiRPH//OTzYTxD8sIHygvecl+9bpXj +6fyAafOw2d55N8CtNH5 5MVMWOEtGjfWVu9jEiAPFv1kpV7yJ05yn7IhgE6S1JOD/BepFho84//T92kENvNyK4X8rfFpcWjdtdMN BDgq7bduv41fhkKYt498 qS/v/1jZFnjurRFELkvXGUaFT4Btu0cBRe7sqIdsEajla9rkpBsjS+/v7//sKKfax8eVS+48+rAp1tgw 6FKxsy9vUdyC+zetnvJn EaNm/gsqTnjArSZfwtbEsyXZTPxz4mDoD1KDfP5/EIYDj7L+r9M76LPRhYxBqiZl8JOl0khlbF4QjLXB TAYDAYDQRAkSRIAHMdxC Ub6YPqFFlaZGc4ZC1aST53vGENo4fHQk/obgZStDnklmS4DHmx0sKEzlne+zgsW8TrAZXsUAUYiCIjtN O7XZrNZEnSFOzzqR6BAc If2n+3EMf9+uHgQ5uzux41zxMQzlc0Sk7Eq9IuUyhzLu7Ky94A/ecIdXq0zNHdsXDvquAj9/5umus7Ps Tem8sEb+3UoahKOR5bcJ pOkKYNWm/+IOkpEUA6lbx08/+C4P1gHcq7OSTF6GLkpUbHxm30Ku1Q3mqQSMtBNthl4+FbYAl07xiegA smiWmYAHFAlUmp2Vwx1z buXSIVg/t7rbIF5I0ysp3472rKFDwbLREpJKa2toge5ec24anATvCsaDFWiFPKWO2CwH8vC6IxsoUeVa CtxFBJZkEBQHaDgO8obs 1UPkPch7fP6vGWbYkx6ksNf1HH7l648xjVM3CbvqEr5wCz64XL7dh35f+Mf2HFlv/9+HcN52za45a519 w5Jy2XblMOgw9/fth1/e Oe2uP34hAvaFEeFAfhmBXxP+/e8uNk3yrplu8fArnZKZtmaqcyLtOlI9bmdlfA8PNdiwXTPGQa6wNVbS jSBvfdsaHYKwHKn3PxWC +GP+o4e6+ns4qPJSefqoIqVdiU7zD3pTl6Pzzj03xgKshbGc3nH3Bo4xuRf4O6hLc1hkLnRgzVl1H09w hgEJ7IBRHBCsgjsFKWs2 XzLeFUoW+7SxYsFicXHx/i8uIxr9TxwIAvaQv2pDEe58aqK4srJsaqKKmqPIqal71PjqsqxBCUqFhfvG O8TtAIlASz181VTTWtbp 62M2JKwKwD8leHDw9v6x1Zf2rn8KciA+W+AFRYGIYS+GTmqnI+mz5pftI7Cze+H5LkUKaRZ2GFXvstFe N6PDuL1hPzDh1+nt5u9Q 9capP2ad0WYtBAdErwy055cP+nRdazcZpSBhxD66UhwJp9aHIpkhBcJ+a+Ch1nQFWVcZlp1anzNtsEeB o934B7MiMWiFCoaiBAxr t6lnA8Lop6zECoAa7pPMAYCLxNVrVc6PHOhHuAKiTn902+HRz9+FCNUOx2iF9WT2fa1CnVvBTOs9S1S1 61CGhkK7X18D4GEPJRTW mJAXfI33FIXW43njllK8ksQoiqPlMMfUkFwv21bso9wupzNlY94MwN7QhnHqs7Vpx5mZuJo5w8op7qyH G9pMLE20khCn2gNJmz3D uzqteKfFOY/UKEVMWa15Flfe88nk13SpDJBxU4zWCoK4xplA/4gvV4/b84dMJUFXp1Tv9YxY+9Iq1FH/ 5Z39PVkIKMa2vsEBJozw 783r1/nj1i/XIWBPIbYuEjzNHJGwRBk8QBjh9Bus71WsF/R/MLBCgsDqSmpDMPUq1+rQJdv6Qf88tUqQ gkTwaROBve0s1uJ+/Vfu GgDuki8k8m0YnOXjMbbJtnJSp4WBDAwJj4n0TA9/zvbj90dC2+3PKRFSjH6eSCumPTYj7jTEde4zmBSA sEMiO5m5VX7DFUwDAH53 VKrHLmKblrLlABZWAmvSd42Xj6+/gBt7uFWdvh5hpcxoSRuvp4sd12ChR2GEv0+4Goz481EIwQeopxIX KFGI+U8JNNDLTWiWxAKa AqVERuu7FYSx1gRXcq1z4p7vYl0xKgkGYRqbSDPigv6cs92JcucZy3zed2essl6wXdxDEwaoSxuQotKj z9xfWD+vWCFhQGKokiSt HdwBACTHzFB/PSyDwJM4bc+wwHGF7tlmq3FYayyiSrKobWXNYuhJDhO2CFq5nGY3yDXpyEhwvnX0MEWB ARAAAGERqPRaNSqPGWeU cpUHPU7lnPeGZwLsREXomhHhrCF6j7N1lu+2YtERLh3qODdwtDq7XPwyYoux5uVdLNaGwxEvD/wRYMVF os8XaqeBihDhJVyc0VmQ 75y+eWwd1aoCg3nOCtsoJ7Fpg6f1lFnFraILKt1OousaFoEifyehyGhUiMbAuUIEIaxdfm5xyw65kdY2 2ikVPDXC0Ygxv0WcCoaB +4/rRhbVjsp8Wo2j01gDyzq2ziSDFQPvXYApGdAAAOFyATp/HC9eUg6ipONMojlMYNSc0pBGH1AKQglJ 0+aYj7z1M5xz5Wszbdki 8PGje/rwWlydTIju9dVMcjhiChfd/AIKl/Bf+B5dTCrZGNwYTAP34x1L4YlvN45y/y5e+U8Cu5uN+rnI 32imeKMDO1z7t150JqJb bPRCBXGvwsfXmMw5uji1mz49EYrz8ooTczUIlV0rTZO6kgKHQCOcJOfbbuNtIyAH51+vhzLpqalxyckb t2y5fD+/S/jXpbxKtOle /bzYr2fKPje9PvnH3gOoznyvLsCAPmb3fl8VF1/JF8NI2hJ3/BBGLuVzVLLZWh5NYWU873pVQz92hHyN 5bCfcuWdDtXrsFXunW/U z36/Z4aac51651/f/ZsyJmzi+yAP616ntg39ZfGXr7u1OiRjEnWcjtL0RgkKwx/bhN4BZHYZH+io8t6+ kEv0xFuqXmoqasN3uqjm 71J4bkz8Y3++foGG0oU4jT1OUDYUF4MlFC3ll0ZShJCtAYCyFfE/abPZxwyR7s+pw0IHDl71PHesrVtN gpcHZymTZuBEGIRQghl5 JuNIGqee2hzJ8y7TfojDd1bk/cr+/d51NEWENi/BgnZfATg19/SCD9pG7U1eqXNJyb967KUEnoDP3iOZ HXwHOLdR58CcFJsmD0iA vu5i+nvufjp2dsLe2lN6kOO1s6MosrHHI3EywljFDuTFpp7vLega7FwavjU1+niapYIrtVACwA5Hsy76 tCl8+2rq7Lg9FNh2iEOV B6PW2uklv0fAZ4WKGXPVqVkZITAlbdAVjFjXWQxgTitEp2stFzLcw78lvlpKUdHRLWHfCGhKfkNLD0VG /kwPSfwc8XVv4kBai1U2 HwiDub3W27i2l6nP/RoZNVKnhZuGyg9DCf29EbKsulAlZob4qe7x3Rf9esCqNuPAvkSlh9rZjs8lBD0G z909snIqb86eTpPuTl4c ZkvFjxI/OVy/169pc76yUkcayejFj0MdzgYU8ur679VjHtgHBM/C3GhJEUmgkw2ri6lxjKON/62fauLm 2pI11dZd/0NRtbAwuxFC dsF421dWEpBT7xCUwirb9V1J2EGNI0yGj0Gv8xI4Dl3vcL789sTx6yKEMLgoy8vUVqJtxRefT+UWzdvD u0gIPc87lun+nsL6gsV0 l1dUspyO2o1QFHVNDQv/wXuqOVQKlDZr5a7q2yqoBcZx8qrBBHtl4M+4a6Uw9FZLV0Qssddi8YwzKrx2 SiyFUAC+89G0POXcPQbV uinEDDxBzkSNzsQ8JdNs0lbJWM4nxZhXHNZKgIziI+ZpSybx7dBiyvVfhsru+5DcllZWZj0Dvhl+NbV0 ZnBe6xNlXHF/wsEZPyrV 6fo0XP4xxySaB7VWU6vSiOp4W//DRD2qzBJSerdumabzRjud8KmWmoAHMXdLOTvfWgMzANMVPv3OnUcx Kri32U1pG5QZdAFa7dKs d+9rbJsRoO7sZiydkUpA8eHfGXF8OtJSyArBhASz9EWo4Bc5rsyzzkZKZuZY9Bj9IHlRCbWPmt8F8NEA 01Obt2+J8gQfYB0Iz4dX /tmgKFUI6ya037rKWe3xGlGhGysFHVERxMW7Sp4Ao5+SmD4AzhFz5SQnPVm07c6A4zs8me54g7PPi053 4SAYqgbc2DI7iwJan+Xv 6g1BxP12bY+M6GdZDoEAIE5OkuyyhLrntUqW+3TPAchlNxRHEDkgo5+Ctg3PZJUKJq0CeW56n/3BK39d AgBRwjPwtT45ZAZlcNs0 owudoFXNVgGxg7W1uSBg93Ob7GYLeFgXiC8IYMdlX6npVkY9Pxm1SEsRhliqB2q5aHdE+xil7EtqvN80 ipRCguNy5phKVpzdQI7+ 3pd+6hKxFavb78SGVdsbmMMRn3LfDwWA7pMYYIze73jpHEyKv2DFVHNhQNYT/Vzgr8WJsgUXfOpOzd2z e/NxOKEeqc6al3Md0Ubr U4WQRivhVX/0SMSwpZKOm87wXHfDsY4fYmqq+OwfEDRuK1fbDU35doG7+ua1OZgywVldJgVQnW3f5nWj wBGju8zk/b0QN+NzmMZQ iyR/YRcWeIq9PWwezzSjYPlXwgW2D2cuv30cnAHqg5ZnrcLxkk5SmGWrup3L7ONVm7Ps229L/6RmDH5e +8+gsRZHH9nCUcAAoiK5 71NtxPX98xkcaCtpDQRoZfWYmt9d9bQTnNBZ/ur59PTlgxJt45n4u4zqJNhdUxeVMBdBnXv9kBkECpCQ hEiaLEILZyvCLvuvHbJr vlsGmPAaOUHywfNhvKEabBds1ixQqwe4Nwmhd3rB56buUrn1jUS0iOtwIsIKt6h0KuZG1YTJhLkHpUIE i2erInWyWE2Ul7OfSGJu 2I1wxT6v7kpcFan0f/9Wlf6JbMw9IeYZYEVhbGHWB1i+jSrITxvgsaEuuaINgQuoU0Mdlr3jBKyUmfcI CnUZPCnODMMk9EMvQbS9 64gREQoZ7KsZ5dlNA3SmSF+MANOfY0jYkjslmtXFaXeMqiTLIFis6iptXkAFAuDsxFfbr6aNUGCL1G1U m71R4AN/yz6q/O5dLnut YD1SgsqGdaY6cD3nVoQmgEZ38e6/8H4w3T6ulWPJCFptW4B5fN+YsODAGNeAARpHRSkDXtka5OZLkyL5 7MYKod33nLEfVtiByVZG NfTsyO3xu3svscP8X7suasjIKFFBSQCyfT1Qq3DLrOFPY3PXTPCTYciON6BvRsTizE6QCn0R4tv2hNsx zsWRLt5FHRBxAlKZOXYx 5Zo6Dmx7FoZiclCyMRxlnPfxt7xFYssGnko3m3fWydXVVsc6Ya5UuZDUZ399AjHW94BKsuSqu2HiwyGs zNS+fPyLONZcpWK+axgh dELCRpUP5TfPSNOLsOvuDqgbvUL74UVI9Y3979OL2i5BA/j62++cgfFCi7tEEvgdoXvcnfMgGYOGVpVb bQSC5a30Oktxo5kGiyUP Fpdo2PvcYs5Q49ZIbCMYoTTSibvj5PTvApXCWMdF3xqoayxamKA41jeK6pNUJ3xmbTlWKsojaS3P/YQY lSumAKl2GeVCw1Fu2FRs 24rTi15ZpBpnaNQ+ed+P2aO14l5e/J41OI4hC3Hx6ZVQX/PkTuWcas/Rgd7f68E624kXZ+wbf1uaHRlQ y8faaayjAKFIrzakEGhQ h7mBX3qBxTeMttuT9s76xd1frgTTzGtFpdYQrvK6PmtLICo+WPfTpeArnKVDSlTe2ZK4U8na83NGIvqC iaO34FCFKeLeFoWYH7Ly AbRDF27e55MVTTkjgI12Sy2c0jw7N9BXKCckSEA/aoW2TdbT9fHEEYayrqoSxMFkmv5BXD5NMWhKzRq2 eLmVX65e+Pp+NHbWG5gd VXLhlZUn3UgZX9sMET/XF3NIc9Ar0IVuzc7QAjLTkYpITIj8yewbR/3gugPy9ZlOAQSsmye4o5vq12zr WfqETtnMPx369ND1+Tl9 VAQinltBUJx+klHOKb3T5SY2+4r9zCt2XNXhH6JKHA6oHCe7qUVq85pKe/QnPG7WSAgwJXNYIPb3nnLX ls0ZsviHSKOXO1XdMQz/ Zq1rdl/JIFQbPRjtVpPUJZmr7//0pAHRu5IKpZx1d91V5EfUf7w9rjUunMQIfnu/xs42PR4cikgsH4Id SQXCi8TC482kuUpm29Hv EnoN7D4uEQ+M8aknPbPMTF/UkQgwcimnvfzFt2YKvBndPEwRxKbsK04e8zKiRnjb8NKjmTozFeoi4Kxg 7Of/5GaX3pRCIEYSSRGY NA/OImCYwLGc2SCuK6wlX6MAstsuxOtwthLXmLJJzAdONG3+Pct5Ij12t20B01XwH2VzBd+dd4JnOjeL m6vjw0oG4z7qZTC1xbNI Srhs290k+F8loXtP2n/Btvxp4lTtNcbvr3aCXm5tDxYVZ8uEPHFDSUQLsZ8c5YlGOVrs1NUj3bmXsGAX 0BQtPvvSusdYF66Kv09O yFR1t0RwnHlZu/4G0o2slQsdZi0g8ajVFWvN486jBp2HrKd72bNzjsafCaK13vEa5h/qJfJkaamr1Ev3 a7nj9g5DzCnWcbiGUYnS 8zzID7Ue87HYqbHZfUl1ZO367S5h/YG5TAqX7yduezG0Rh/524PPTqFOk2Qfkr9vV3X0fWFXkd7im7/R 7fGAHiczXGQeyV0qsfiA eqUjwNx2Yxy6tm5yehxaXpxlXrTI7sQFQGWuqX2gGbLtbwz744e22zvNRG6/dnSxeUTWU3FFgNUJJCpk 5JejsQf2J1FOrcxm8m22 +MDSV601uAkyIxIOLUrNsJlrMMxKFj7sfS3359CHQqwT4rl4hNh1E0ex8XkwIFiH7JOUOqAqImjtBeuz EisTktiMlJGjxu/88/dP r6+GK46eEFES6819fsgaHzKdzO12+uu8VfdOSufYvvro8hazeGx2KW4M2JvwMNNEB2sd0NbxUPOxQ+q6 HjwoxzQfcUH8378NTp3p KGY5zNnv4OZfaucm2NmPTb05NNxePMkaA28wVv52pAx0ziNRIbHC4CIASIrpsdAeKje/mjllGGIBn9H5 N+Nn/V80RGcycdzsUJvu ASBp4Zq6LyqqiyHFWThJD89/HPU4GNY8bTLBzKCi9fIKTB09Hml3T173RAca5f2aW0qmFLoOrWrNNp7y y+sMzEwIjwLzevyh4OzN bnwzUrkM4c4op38Wnt3wqfpB5y4yAWiyiTJL0JLoyA67HngEmpWDwBJtJ8ev6rUcWv0IYNhrcT5vVWZb NKZxAHmHkYW8Stj2O00m 8qaiyuZbvfbnXpx0Dyst9Pw2ehMTKlJHtrSUy7pQxNTVCAr9w2amn5QTOm+OAshjhnlJ7MtAXTxL5JmH NV3gaFL60cA+i7xliHBj boh3+DEwQSfPqYpkpiwY52dB0f/xFlqjaz0SVcL9aHd2RO1h6K48hvzgAAzS31CJ8/CWsCUBrDCwkBiQ gJBkpxYqtFpxBWr+1YOd Wp8GFyt4tyxvUvQwnBIjsS0GpICZgJgF2pPz8eWU42yJ9C04/sxjr//EWGHhfXrqnlGFbwmq7bAWSUwO 5HgfwRJkkKx+O6Rm7zjT WR0mZt+0/S7kutxHN0pSnTapNeftXK+FD4DOXQRayWjZhqJylwvFOHRh7PUmA6rOfUFSHOz2Di2cT9oP pVcVWFKGKywMJCTkwMAR tMka7T1NRVLAEnCk+bh67piMsaSVlxyTutf5sZXNtX2/FfOdDff2aHHhbD4kjEFd4E2Do0TsOZ05g5TU KSHaLWSXGSr3bjf7QGNy azRaDQaGIM+7fwVbbNUVMld1Hz5eZxg39aXsTYWSdJSGSTQE9Frpc4eZVzw7OS3UsSmelWnIlCAkP2eA OZFYDwQPy9RfuEYfquWZ OqD9slDEeTGC4UO84vc7jknIUEEtGou4Fa4Tfc+icyIas7O4NS/TbMwrmgb3E7qWJILLpA7OwBl8a95/ pPtsPwJI1SLiEdIVoQJS gQgULBeSGknUjtDajduXwKKpAw7FtBztKBI1Hncr1ywURw2j4NGc6MJ+EwTAXdeUbIEZKj5R+0hjmEQQ jsgokIxlSOoWg8HHYJKU XSIIRhyrAnoksV6tzlpRULR4VJGTgTBflSNjEwuyki0BpjSiiNgizoqSMyUunYmTN9y6663w3kxkSzlH qrrMhUkywBBACAAApycu SAPTRiftDZxZUZlAqi2Y+vkLPnGpa9WepAbKT77O/cgnYaoXkfFckijfpc1/XSOqYquSwdMS17pCkrye V80+VObwE9RSfRhLm8tM V60W6qzgqyLhtCzSsXnfa82K/tLIMvsMsK4rNIGd1xWBmQgDYC/Xh0ujpo2gm8zqLFyk1qMOecsAIPYc UCDCbvWdKQc4MOx3JXlj t6WEduQS0UxUPPkV9k7IWs6HZf5ffp4DsF5EFhwAZPrMbE2eLGmef2qgqyh5Ewp5asKEIpzA+tHCATGp xHqHAWIpcCyYNHGAQRCA KwoZ3siypQfFAvLxFYtxNeCTXSjEGcihQw0D1aMvmAEdmH4nyusyiWBpiqs49bBm8fQrWIVPAFyuYZ0R 3iJGcmjoRJBQjot0CcNY XfNSrzLqxlb0s7ZQCR1WUo6v0oYp1MgFtV14enC/GdRHbsPRTY0cMQZ6odr4AdXns1XVmKQoRcVNVVPV VGjrsTGjrkdqmscDGbru sWbPR8IbVnMH9cGQ2yHaQUvkK3lbu3p15sR6+/SosAq+tVrk1sXC92S/mLbBCnGvlVd0M7IoeUz5BRmd iY4/SphLoRQnYDdFJ4rd RSWZCD9WkG/S31g/c9pqFYQbAgXgx4q8Vtp7Xe7gqLXhJvYGGpVqeGi7qTIA9yhmNPCEC87PJVORouHD 6QWtYNuerf5/Qk7J1t3k 3+jZlsE3fovCf29abQ3lTpXc6D8l0sZTSOquet4kNMfz79+FaPXAfu++LoRUPGrMYfIl0F18HrB+nWLr z95XWD+4wV4cAfTx+U9e /VEAqEg+pW631n7y9lEKzTxuu8vSuWzNCM/F4wzJw5wfOCu91HFoUKzz9YEpwQdElyAlBUvYXKs4Waef jIpED0zwcRH9anAZwoe8 at0cZIjBk33BIXY8gfDaLU+ShE36eynn1An6CX2Cla/0vQc9thIeKaXYJev1plKROLpAZ/Vu5WtMIbFd HPcjn1jZaFcrgdm2wRzH QWVOX1ROcd6FgLLcVn10qa0j8i83TJUDtypDncYGUmTzDfC1ei77+igv79ZnwJ9bPNBRdtcuhfEVuJvX /9pe/chot5xhH58n63sD DivNDLIWLeARjGh6daVDQAjFxrKCSgg+4OrviaOgWdfUuj02gBKT4E9LTwVAHIkf6Ol/nln6yIWCCTSN YWtXvCTQ81qLM94+UT88 woAffcj8O3xKUdnqkNvwY2jTzjhp8eSbw7bAhzGlC5+43Rsu+iK65QHpztdfou4Juj2/e6jQzbIMklMD nYKv23LNcRzw+Z+mF34W BfIOKZDZz6NQR6BYsAn+41HGjcDmf9LgVXINXHKDPs7TEKPXjtbRrMU1xAGPKFCLeZ//wJbl75vOYbKk of4RJ/QuWIJssu9UD7pP I1aQ+n2oUQygy9PPyjhyatRSrNCvMYqq7JwrwpcyJFZ4TS2oZ/uCxPikFCkqRykbBKsqtkQyWxArwPT1 EKCAKEYOEbyIso2/Iz8Q Swtk9D0fnVHNiCZtjHwq0P/f0ss7xw8xg7KJaMsXRcsFXP8dp1KgkSZNgMJycs9nZlVx/FSyBgArLAwF kQ/frz0l1+qf63EamCAP gMDVPjnrcJHpksLSKEuKbLIaGNtMj4DEXt8JgpoekGEFENMhv5RTdNPlMMOGJINKnIMlOI9Nxjvwxcgr kEbGBWcSnrMJ2sU5s0M0 EYOaMe7gTHTHvOOpPQBJDiL+An6Owvps32oY0/0etG3S0GSH0RLeIfSJhp/RsAlAMJyabHfIB7qUWNQq LK8t0kjkLjVca61wotfC ikK8omaiWJwISUUsbuMgYYG3AEAgBiG3QKu0iv9alGswxzSfDlm1ZKptvrSPPFShmuuXUdXv2gfimq46 bqZ7Xj4+tPFlBqwwsIUi LQtFD8Dk5kW8Dv3TZnl6Sc1JWf8XDrDdeOea23A7sBpNDkQFF8d3eUM8JrvcRcYQAWbB+fJI26M/mHix PqVGPUNVLlZPmOGHp0XY LNveMOtaKP6pHvXRuQwkDWbiDzvz/++/FeDt3/y9/MYF0/QaYqIQAsAIdfdq+gTCxPk9ZK43w3QdhJiq MNq1wKtVTmXytXiG6GIY T17Wu/iwb2bgx6aXHz7xCOHUZvBNUYsJ4Rjo7fsz9kirIo3Nxvl8pXc0KkSGjGgqZS9qPTH7uEVVwBq2 +HZ6dkOOEOcvuHqBWLHj AblUscVXDNHjlXcHRR9oB9cKnr3iwx0b5x+Yaf70YDcS1JSfjZL6x+IqnulG9fvplMrhXKapSVUV5+rr RRodHTjJFLCYKCVCvGrZ 6Tw58T6ULZErc5+d2cdrtRZhQCqOzr6mvSU4r+i1+t/OlS8bb2/ZVWRWPgQCBwRSWoOUAwBbb9AMMnqd UDQqHHjeQsW+vtqV3CoW h6ssDD/YClq9Yy1+3yndOXDXy52zpRJOSsWSdgJORayQQ/szNxNr19X/T9gahZ2b3x0/bUi8Tdvdm7H3 ofJVEDpR728og6kVUCXN wPE/XUhtZAOSYsQxTjGiHASNSwzSDJWBwZTGOmDgoBDKZUKcys8XBTZwGWCTJsrFNQDRwCQNNrVjgVLB ZSAfgk2IBOQrOGSMYjcI JUAMbZTYLlZazDRFPCLxsk18D9/Y/9kGAvr2+zQCiHGjUzvKekTN4Hc81JrV3yyvsRbf4WbAMeGi4Fg6 so64qn8+/iSR8RYqTenD IZmoC6MPNBF1IO6sLqSZohpeQFTGWTbk9zY+c/s2Q05vata1ey9F0bDrtrzKE7GKBHBwx7GeUv8sd5pN Nh8BzCja772byUHgxg5j JihLn7nhlt2xsufzBcf4tDqp5rK9+lTHz57gTRe6wKxdJrdrWg7lDaEZNV9f8n1dMk22QPZDs+oqj690 g7El7nHUYNuTaWK0svgR h4o2mn3g8Vd6ShQT724ryj0G92LASu3WUJwv5edKOZHvu6YCxWbSd63zleNZCNzQiDUj7NmzGsiWMhI5 HvggEgk+jslxvyHSUxMn Yp98wTXqwHl6tVkz4fPJAmIWmMhsPlzjjWzVc8DdGnUB51qd3BxoP/aOlnzUZpT7U9usPUOc8c6HVqSq ERKujYm1RSmLp8XID9ut sLaClMQ9+6e15de5+CPwpyNQUra4KgphracBeBMUQ6uDt560UeZTcF1+PV+shmvs8gadxqFYqFEt9RK5 pKWhl6s1aLN7w956RJIK 8SHM/V6/ZGDh/zK+afa8f3sdn8gHUl/x5iBiRIIa5nxdYOX2D++6dS5c+Hyo7/5fjHTQkCMbz9+esSI6 HnBP3ivWXWAuZTK2RpqW 96/Q6eO/C4aYzHTkqaBi3RpoqUhGyqxMdlRk0RP7WDyxOThceRdfXuhUPfAbPcRRq+PHVOcWFOmTeO/a J+bm/vj+VxcrHfUn4TZ8 MGoAu3xv/2aqcsn1c61yFcr41B86AVB66IZ6XxaKa8csOC/Ln/z+g2/3X/qZHmNGlqF8n9ulK3l10uml XG/r/vwT4BD34/hA5o8W e48KkEL5cvMi8N5GtEgc2pu0ILNmLXTkKy/e/IoHjLy9zf7Ru5uTf2pDuIowHcBIrA9xOYFhDDACHKFs Qabw3kvQw21qL1rQrl6n QqKNQu3qiBB8eHBuEYRj4j2/RwRHONBO07y8uXjmJslOuFHg2e0P+OlFrlFhQd4ttJBc5ORJj7xfXRv+ jSWiSHDsSgPZF1l1ipdy hZuw7BoV6Lx9nDnrNqte0ijHhRRTfUFVM0BFpZNt1lb0tGOAQNPhKNy54HUElQDDD6+bGl90Jg4AIYrJ Td0rhe8vVozQqvdQb8+R AbuH1SAJH643xFGU0HsIefoLgB1aPnIst342+7u7hCLporWjx7x/ygU585LHghNWowS9Jc3SLquJ5PCQ F5zj6DlPRwnteq2vB0Ci mpa2TUO27XUq291yQSBvm8TptoTmve+4L6pNn1Xs1/f/zD81kILSrh8qTmQTDsRjeg31UMRegUsuKaRo GkzqcxSIXIcd/5ciEqtc uj2KMKwyia+sk0147KmRZ+NWhMeHvbg/t3kIlfKyYWFo8v2me9g+Gnfo4LaVAM7ovpHRLqmKxGugXqrZ IqQtVKY1enUSlAinapOc yYAVh7k6ktHncJDrtc3wbGIpwd0sjfPMO3vCLkN9Ym3Um3yJyg1m/uoJqsmSZ2QmUHp4+mapEfy3gSgb UT1WSSBRHjtSBKtKH9Bl pBBvNKfNQMp35IEmTInF2ywgVQXu/i1uqYUPf5JCmg9nfFBk7axwZVScRygjCSBEmLo2ls6q2mdiEo0M uVz1aNt4ysn5xgxSJ+kj 6QYTPYwGTMVVZzk2zq4ZnJmtl5MSp1JsMBuibd/rUAb7KyS8tOb6nl+wr0SDj03N7EfGCDllLY108qdz xUA4z0n+y6p3TWpfzrAH 4sxJlWdLMipt7E/iomZo469/2vMQV7yff3dM6kxWIUWCL8w+1pBOErFiEKFVFvRn2quUkik1+KzQ1GaZ PNAg0H/4iSXrFu8heHjL Bdqt09khn82dLoydNmYdKiDqndDejvOi12fWJSp65dEZ/7Ytr1v/359+v4WMFjvyMIPD4gGnYVGQdBiW 7Rzw7dWcjl2+3uUGb9Pw 9YiQ2oDNUxM4MWVXaFl4rRScBwTwijkgvl8bXJMsJzGgPX+/R4otfsv9aMY8MFhHQfCux86VteHEbNEt k63o7zpEKDqTz/euZOcn AglxcJlzutEtwpfgfT1r9ux5HYck39/sVhcUFE/yDTEDffNZz66HmBI1r9+uC3zxTW5N1vKcKTTBHt3t SHnQiwuFgAQBJGWlrZm9 neBqZFU6GCy4+p1a/IEFBhy0Rk5js2+AuZDSs4giGx/3xc9Vf0zFyvxoGSBgdoBFnmMgedW0Rt7di0CK 2bqHnzzRp19GJygUGUpK ESe8ivQW4YNmxTq2acYnm5eP81YEbuYwYGH2aZt2l0hWKb2jENOqhBeIV4nOqh/f/vpXT38RkYJnj11H Rbd2bYH5hy89+aNm+zt7 Pv73sEsZZxgACc/Ll5rwNnjK86n8SFw1UNgiiyjNbB6kq8+FOQhbEeNKU5pXKu71ixc1FKyeMdi5Y33f 98xiln2w00YIQeYAabe7 SAo00vzFm0luyh4U/XNN/C+P1xYp785x7iafOogN1hEj1ZVkV0CUtVNUm53o3JG8jA4lx4q+/v6+fv6V n5PDWLyOe3aVk0BdvuAf n27ciVznbhWZ+ef77rq8GJqLdk8EEElyNjKaDMfFxkxk7l96TqUp7Bccqc5F3/Vrz6QIKyGH17anorL+ 6VGJ6Nbypq1Zo1c3WuCk QLO80CNp5cMHhK2pXbpZ44Jwj6fF3rhR/f4+/pt37rN/OCjhw/4lg753r8zEJQU9ONl4Ldi2/j7+u3Y/ kf+0N07d/r7+qMs5PpFp Ho7P9EqHyhEm//y5Uvzg+DPyEM39AaADFLuCnfhosqib+4i452ckLk0peet2kQ3LRsPzG/j0lBRVG222 FFM1Agajad9lWOEBbCIC mus1pBvM3Y74ikZtGf20uDu11tKnUAiw/utv6/f/8y0Jz51apPMGQ7zxF30ErN4dpEsj5vAVIEdC/TyZ Yway3A3g/Zsf1+/7p27v Yj1nkGWrPRp4Chb3/NXxTyyFlMfKUFzATLjJcp9xY/Cg5v8TZxJdRP86PtLfYhZz2gtqg/pruFT5mmaz cmFYvBQmKl65kZ7xWH++ snf12/HJr5KAD+2dStf+D296iXu8VOfqkfP30+WlMv58r+mJrwTQwh07pWeirAikbsG0As0naMHFGff6 lm6yhXAYG2ei85nFyZ1w Ur0eiUV7Zb52LCtmEPcbcFcNvCI08QZ1yaizLeDpEtVBCRR1aoeK/i2kgU+Do2g7b4WsSzCxaR2OisNM iDDSi1e8++j47degnLZm 5YzWrBo41p657UOEKOg34QL1SNF8fonyp1NZysJlBbO974RQ6yI5XkQ/QcO/Mm207OUbcCEY/HwwQOLU WJq3cTVp2Anx3zj4UhaB CqqaeKPIEBWMpjoiPeNBC4El8YPZ5mhR/4H9x+wKvMRpKamxr+JN+36+BEwGKzj4v1ja0Pz+K1Wa7qgT 85hUI6Fv0eIpnKoMjhLr 96oAkko3ojpmZp3mfSAv1qLywx2/vysw32ks47zs/oeCQbvIhdW7pV0pLcSqk85nUChAZF0SvYfz1HKd Br73lxaum2JOkRpGtlue qvfjPlRBCIU7yaiDZTSmCs/AAiOwNQSZKdm5bZbGUs6l3sbIL4/iwEUCo5jp0bd8Q4eLr7VF2/PuTNnZ 65nlbILLo2GOroi6jjUf +fN9/X5is4ZKZlkNP5rt/Hz3z05EyoMAm44JOnQ0Bh1jsX+Ih8z+blbj+8dhbk20AHU/y4b5Mizz55ut /acPWqKwGZL4p3CdCt9c +Z5SmXf/v2+xoxJEP0qPmfi/rw1LyJc9EtQvvrK8Kc6G8jD3ps2+cDMtKgE4X6PqSydndEnN5wWcogIL mHNIhZwiOGu0stDCeix1 bp8xwwZQxxDNYiznkKdY87ral2zHOuJATxxmSHqUAbCpWDr6Ouh835BlvSp9158s3rBs0ARAa6nKSxdh SLr59exgMx6X4vG2t+DB NQMrFe/vtUsbt+58eNLykbWBfvtYKNqXGURInClAN8fiblhXT9+JGDzDpBXu57aspmpIQZTFFgFexM1K sqVbkWbTsynjgP99vnaC 9i3/5xXteWioCjPb6+PBd4+Pb8aw08ZZ8s0msqPMTGQUIQM1CMDP9IRXF1+sHRHiqt2k9/8PHOWVQGSJ IUiEQCIxWKhUFhQOvlZO G9+YFZuXmDKp23qJEMI50vUGdsJbMv/z37x/EV+lMdHrT6ffbFF+m2rBBfl3GrdQQ162puBrc8oCoMlH 0+duga94ycfHMN8803os TLUqzLZM6vsM8ZdGF5qIQBixFE59cW017N6m1+/evWqX//+Q4YwBBnz1h4osPpoZhgFc4uZeapY0/fN8 mW/fp0BqBQdBWPY8GOo/ YAJ7ohEalz/TsDaUWSjSE6zmvPKrXYLnJ6jpSfNpISR/rvnPi9isOp7PVJ4eBvC/07sGOhuMEOZ4jVAY LS8t4/KveBD8md9HI7+f lJUcIcO+P9OTwLxMBw0gGVq7ctXV/ayHd8tR21k6zFnOqvvJlzrUxr9/Z/ZqRLoO9Qv72AH5w5fMXm83 uPHjhczzcKxMHF+0EPII 8FLSRaio0T0Ul+BNgur7Kbo8WfkHJYpAb/9/iaIlDqXTEnhG9B8D4XWu3v5ySRhwxEkpsfyB8xLfLagR Uq6g4uavw7RZHUziMzbq /RWVzSw0fmLHlQdVrie8+KF08CzBxH+7R08u4xUJXCgxPTzFaxTUik2M99W1Kl029kjeo+6Z/vk3dlX5 R6yIdbAg40Uawon54Lv2 WvVujUAXA+/qcN74Coy8GpL670FMXraywKpx1k485/hT/WX5qCi8+rVr//MhxAKSs8jOXXtRoe0cP3Ey KdrROVXdVtKpc07yp6lc YbHPw0u0VJ9pRV1+rd1/XgMpuHvI383pWQiHvxiu10AMNPnoqYKMhlvRQagFkzAYJgLF/k41IrteXwm7 8dRTqjCeiUf6NZNU/lt/ vDVBHHiSKT8It2/zr4b+PunyMzMTExIrN+ssP2YF94xq/fq1MO6Ry+WpdLrNQQCF9Zg/cnIIzLLmvZ5H 0+Y31y5j84n+Ob1m0k// FASX0lKBpku0mmU6u88I//mDQD4+vn6+OS1AZFtmez06w/PGRkZ/HaXGIYJ6t9a+NqSKxx7pMJ/wsEDb ++ierFKNGZWzHw7Gp+Eh eZgIJjJZK6BD0zR1Ib1CvMIPwELh8R2ccv9JhKm6Sbfv3luiZNz5w7gRt5gwflhHFn3VbmBAbic5Rlha ffIAODB/awWEj1ng9NPR f6xgWL2aZjJAuoS/f7gH+0ITCmAqWxXZEXY1rcvS7SX7jKTaGzHAh3hl3jc4w/eJ3x4ROSP7E5bwYmNg T74uoyI0Cv/bldAhwIAS KFzDEoNf2G0yip1l0LaU5qrcR7yyziwjO7M8ZP76GiIYTpSTwdu/Pj4+dB76GzG5Iu9t4F/r2rfVjZJY doDLPclKQCa0wpPPZVHC gRnZxfzVpUyV/zdQrEczwfwTb5KDl0WYANGYXbMPgcsUx0RaiI+/OPvbmgdPzSOc2lo8VwekshWyYl9R ZNa91J5KdKfjbl4+jgq6 e101KDAE0Jocy5kxB2OBQp3V70qd9JkamnpkpIIpDjFz4+/CdQgOXoyodt2QqPBO2MxMx/sdPu4NHcPk UQsL7o6mqr5gA3poQVjx Y9fwG/VnMP1NrWhc6jZaIq14Ksx1jUorwCOGxFHUANprY+RFzXeJxN11oBLO2NR44ncW2saTMLXe4Njw 53iGW4LhUTG6WqHSofb7 +GHceMNRoPVDoWJ+t2tjUg6fREOi/Jw8Eftp1pn8GK6fh24bmXE4gi2mtnQgy0gQgUyhB4pTlFuQu4d/ 1aCXZ86mb3tr5hiCni2q ax30EFjlk2+fzE7CJt5VGoUwB1eNrkJLPBjW9cCtDapY07ZFUMzZe4yB97yAFiqwxAEOtoHcNRTiJqgM GdCo86SwiwLsoivC7Xd3 0LVSVtPEv92R5vtV48dZjeL1ARPAOLX84iiPSuAsVsEfFfCkhOTPRoubMVi/Azdgl10WRntp2Hh3VWvY mIw8cTooWuKoT5bCrcga i18/x06LU3SCLmIB+M4bv/jzQYERrfUAoKDdd8pw3jGDEQHqNfUO4R2KNm9/9dn+MiRABD/7s4YQFJ+q GNSoWLFPn3/9/4UOz3gY 2cZthAbCk+Xeu7KqAtlHvt4d6cygtpqyK5ho7a+t8ETdsWfx9gXHWhkqkHsZ2MhUaLT3m6aZBXk0ZtKw KuOQPh50TmcoeCuTXndE Jib+J877QWkHmuua1ih0h9/+vRTal4Ah76bu06bZCb8l1icBCYI/1cg+GArG9+qG7ArYBG/ruM/dEERA tNbnCjqLnqvJPBeATSat 12obpC1q+kAc76XfnUz5RYz8tJgjEXkTt8dYZsKrtBI/zWZJwYH4Inbd0pHv38gDkM4HGfy4LdPhf605 VU3UfZoNwgh8zu97ShQ6 4ChMrwSCe4gFJA57DlM0e2NQOdoSsVFykQxgf56nuBhwqhzHIobTM0NJ+mc0NF6Z/azyeWmZ69cOwajh /9hYAhMQL5uZJr1jml+9 0BFhXP0NnRu7ohxeX4HtTrjSYWqa0hv/UpR8HjEDClOE3xpqEWSru5vTcPzYY7sk/L4ib+prq6ba63uV 5/mZH9Av/2R93mgBjCAm 2njLiDRZAIQlJgNVh8oH7vAfMGXwZUHJnv6JEw9aVIozmbQiQtm/Ta1UU5sIwUvtK6UbBlfgcUZoCjpy kLsHqcmShtV1VfnRqCoA XRAwg5konrvcx+frNVNcENrGbKmNDNzt03/whaVxfAYJ67mkGkdxiYEm/+yaNGzZ8/dNr0cYdhhEo21b nzkqNHFsbWb+Ftrunft1 t1Up/v27F26+JfuPXuYDzN/BB/2ShT3lm626981vn31wrxbzm/yKpPR3ZjQb4Pfnciz8HLeXpSD8Oe9/ yhmB4TANWJHTyXYrffEO QcULUaoadGXdU4mqq8yr7+KZXA0O7e/7QBx2mZx4E0McawUfQnkBxyi8bxvqKBnlp1M+xfkffYRKBSKi BdOJQc80dLc4+3u3d6mE wyMK3iKgcezP20wWePMNgNFzvSEwMuvob/Oyc6+aoHu3lMtgc885tVeCbeuTJXcQi8qCkw2IVKpGeCOc s7RFFyHLfLY83txKSfah V4JsUakufs8sxseNe03dMrxJt74LrRmmJeygvoopcnasfopLTTKmWMfMSmcJhQZOCfythWmBJ9fv50zt aQe62ZMxpZN5gAcjHgj2 5YFtm8lvqZj27hl2/Nfh8brv1qdlGd7AJSuUOdn/DnP6LPzDO2X5j1o9c391KFKARup0+fPBw8Z+kHZ5 5m8wlSiQV7PzaFVJWUZ1 JK3FYYWcbpMAZT3JIY68cmal9jk+4g9nkS9NX26d3bhCoAYk6jEYyC0s2BjEubFhj26s3/iMxdfqm4gd h0kFDhilAnmNCKE55SjU cfov6Wo1QS+hK5aM1cS/3pAmtLsuIIZblC1XccYCJwL5k+3Xz/e+eT1CdoXmXh/I9xnfn1i1Ykho7cZ6 38nkAxtkUQWwoCs0SaKX BR99Yup/1Ub/i711Ay3F9MFjLg6r+EFZXxkhnE02cscGIIyDMLYqcvy24454DkW8wS+hg259jYTdZov5 LmOdtT5zKzo/+0Y3mQwX +JVMWNuCRa58Cdt7tp0c8nqyB+kk5rVxfjThbdtEq8IjvaGluFD6Hc83zS5qFVb2e551sx7/F2pxWm2+ /ZqmfG99A4bazU+2Auvu Wt5XFUE2Kf/bWSNl6kyfd4tqhULSEPmFdK7HmKhLQQs9mev8g78c6n/AkBiYuLkH3/N1GQO4bsQsJn6G 2ZfAPWp1aDUXGoJwua// Yni3Lhrf4eQvP2v32/g5poGQFSd2q893RDenUfqNF6+iGU4vZIGX5v1FSNBYTGoTYj4WV8UM1926lbWs 7Ls+XKoBCSq8Na+d/Jvw zZPfTswObmqes0H7p5W2+/b+/gd8bfh39neynvFZVuW+plwGrVB3Hj9rzUnV2Sqsnl+yuYB5uhWiQiaa fbg/IUL+Tnwf+7evXXzZ onESg/F18+BodMnv0aFZ8CmmGPsUxfnEKEkVYslLG7/avtAxjkTAGAj8QXww8JAuQuH8UOdKJSHRocY9 7Zt+LzWU3Xc99dsJkcqL QVC6Kzqi08OIBFM/5Apo0vUch5cCTQu4W71mvGPgien+FpEoffp0iQHl8DOyyo7FsQlmZzE35/ggPwRD RJkSgu1blTA2KxL3uYZS Tq+NmKeL9ndDDGBgKukcPZK3zkOpirRr1TwphOzyhWDBwOSAJpmuS/JvZc0DdU2Si+cBiDSNjltkF48p 07b2mjMh2bV1iqk8Egx3 eExf+YMtuMtWc0iUsuhnfDKaeE5vUJI7KYaL1jVSRz9thTy3HzGnkHZKXsfa5JWoOdLeFDyADddYcBv2 Sck0htI0oSksZC6p2YR3 87F3FQ5zxNGco4/AICnp+lappeF60IDrLdE/bjGCUPv6lw4o/n0Q974dsRA+1WniAp8Q/7DzCkD1cjpW IYaTFSgcgHmbjk5l80bI mPHnt131yNHo7GY9cmBuyARml1FCDQbYdxd/R8hTquZ8luAlqGAlf/dTmM11oVK6D6vomSqXmpaVZvSw 2Fu4SReMbFO1LjMtP46S m417y7t413s2P6b6tWcX6PoC5U9dbeoGnmxgXBhjNTMaTF15WeoGanm2g86B6w1OCAsMw7CCQrJ4runl 7J3jyp6KRVO710of3FgK wRoURpOoJWcVCNjWtZc3i8gdsCTCyVMCf3TVOLgnu1Vsc/qaGi5LTHwFhx+fetW/mz1Apce2FDV6c8h0 bcZPnYFJd6JUonkUljWu eGWRoebriqSVeCz9j9hkohctSssWAy1QVh/eE2hF4d+AP9WamzDoiSOgqW3MhqO5tXvGGZxGh75CghBi B1aar8nxksYVh4ESLkLr k40uZlXVwmbmd534/dxGDJLt0cRDwbz88HuHgSdSkhb4lBqcnDNZb7x7d28BJXseBvARDxQt30I8QWw5 bYrcv7eet3EyV51Ph5a3 +margret+PCi80ldlFfh0jk9D6jBIorMwIAhsFnXE8n/riuVORb76OoCq89pS2h1D0+jTSh4bsiq6tgsfHS+O H9en2od9WtUgQ6Vgi7zH q532Ktg9vcyrTukev808imygj8fd+gtSExM/U8b97xU12MEg/gR8/mCXPKkdmVKaKex6QdpB8khf/CoU WvWrlkjFosDAgNMfppW4 F6sROIjAsGJdUqlA30pyURsxw9rkVHr7Qn7Gk03tq/84bMTV97DlHGULKoL70vp/175b6MRNn2yo0eej 2zadGDf/uVLl5k+XQEAs TGx58+DEPRSpv09M4NIJlA6THsx0+4hEAfjqJx7MOIvwixQZjYL5Yn7Hq4rv9b10DMs6/9ISUlRKpUMw 0xlVzVDmPQUES1dAjcr9 CCJHDn7qBDN5/Sgz5PwVr0MbYt3M/v5s+l6ASz9R+e9P2dVgNj7j6hFTySTyGdgtY3/f/x30aNQt3dy5 baB9aWUjhvSPSDaVyBjS uDWcuhR4793d+6cOVqNtk/udrMg4U9w7PczsYjrCAD+KTKvxdyIfyfHgkuov4EzVKMG3yeEcTwEEJ98C K5S+drKTzwwPe3Egc8+T bxAKKBIUqVSRT9+cAIneuNStn5ZuDKvYKpx6a0g/AntjVFTz9sfkg+7ju/NPASrW58KxSUUFSgH4t52W h1twozdprIvVIQ5MJl2Q eBhuaUlwVrtYWVvx0B/3n6l44LEPqDbTgSC8ueR57+pj6hz9st12Ngh5CKCcUduhRVPyo2cSncnVxwwp Lw8gUUUTHXBRylFCX6Ko sRan3ceI0EhoW3uJzejbOxq63ggomb93KwAoRmV6z+HYEJWbMsmlY7rT+CeSxcZiGCXiaiZsZ90WvYpa SGphkX4pXfFk1bd5wzaZ qp4OjHGAHzNeDzjnp2DooMzm+crME3TN4ct8PEzFK6xELMJlm2EzmYzLTRPBFJ40ye8227dtyfTQdi/7 M5cl13oE/j5+sNTu6heq /DHdZ2sZ/J1ClGp9+rBk0VgxTY473+fP3/01K9j99s5aIr4YsIYcJ153/BBp2b5v2r0Rk8UpgN2hute3 OhNE3zIwsTx6hf5bIXNS s6d/fKCy0vTQItVV+IBMoLxHtHtUZue1oBO+/soAzVADSUPEd255etPQ1xDAxYp8N4+rxO0K4J0oSUxq mJqqz694gdui2q+3L2bX 34v6sWRNBKHygXQScOqGr9tr/jomSeUBWdODaoUT9cVD3HTOJ8gVe8pjYGWiWoMQa+/Bf0qLbRdgLfj9 yZjp5YxpJFho3vtkmc5T AnhTWrACoZoiS5lhblt/+x224vidd3sf3/WZh3RZFFJ0f8rrTKXBi9uyncgBREUG/yMoi7cHYt7AKkKR W8OdRNSzG/+/cvVZ5123 ZUa8lwXTt+0HE1g8l27w+/Q40md7Xdbn9owUQDzfystN2OSE8+u+VCVlNuXF0Zganmyo6t9YJfTmJdGn SyjmgPdZxYYiGPDr7U7B ZhB9G09Ysa40EX6c5zhArU62FT8w+4rsLgQPBKjWICUAvz5Pa0PRkVMgyOwkQ//0sGji8VLxNNEXXYz7 t9zbrUbD5MO6Ak574j94 0MzXK1K85dDobFaNR7XDSD3DUl8d09icetDJKq1/0aQi6ba6HR4ami5rHPujuyZYiWvY7+zJKnEteH3m twPvtxry7cjCMYF/4ED/ 6mPjLAs++D+b9kPe0X3bsQIpVtJNKOPSGV6WGhpCWN82zAh09ELYcYVBkgr5j1I5tglafqep4Suh2Li9 0RlK3aFuoQqrWncYo2EH XRaW02dZfz77kOLUPBsqSdqiNe0EuLr6kr/1cLt9KIXo6E5hhZl9TcN85OOBTpxaIfzFHpzMPrT45uOM MKVEB9/7ZTMg5Vs8+Agk 8oQQkajQa/Iua0voCOENq7rircHzEkg5yxiqt8SgDrY0+yxJ6ckjOfMtLvkpfR6+kyKq3PzrZpxIBl52 oWLd+1bSreUGsXK8fiKk 1UuJbQrrjh459MZVcw/PGMNMAdjvZYS1NY8LLqYg1YqnPfWhfr0zWvx+cJgMJh/A//Y+SqSh6Z3dqMEs mAwpQassDAYTKkBKywMB vCaeUhAd8VVNsOFzeSkpZpmxPSOEZaAKimQViHigLrJi8GHUmCFatAddJvkfKJIOFzNTclZSgKsoJnBl 8GUGrDCwmAwpQassDAYT RcXDgkCVrEejVuJu6UBNaCCxrEskNqgqSCIQKsVOncUDzEjsDyWk1BAIcDY+ms8uWjJwYWgLm/++OOnz dnr3y8tMmg0v08g9+joK BKJ+rzxypRZqd1jIn/q5z38aGIQ4iv2H5nTamHuUsZ8Qtf04eg2ehk567vo3j2rUt1HWRYz506VcyRID jCmZmKy7BON1393lhbyn 8BYFV1ev4/I4GMl7xuxMwbFs35LY8+1acLmQWuUXKgYggca9b6dUiMrosx/WBqs72Juzlb+qR4+fPj/z OjSpcuuXbs+cw2Wut5tB WKEaZe/7h674nry//7shZ5OVGUHSNKDRBgaP4tgxzChWF8SgOuFJG4hOeAJE8FU6eYdR1SKk5517e/+o X7qwqIHk410Wpgj3iSMK E+ePCkk/aOjxkNRuz6gXNcVlTQCsCl3pUvJEiVvCY7bKl6EJXQE6xVJa8tPpy5PG1nAbFeTvpPHf0dGX Pf924Iht5W4/ZkzVSqV5 q6Ab5MZMXDqdo4/7VlOf10t+LT2T6OY/drCPCs2HWLT6UKnUjqs+iFglOVJ3psdTMLUrJWdizF80pYiU SW+FoIPOBo89uR8rug27 98mK4XxTU8eOa8vhgxVBfUygVPXG82qMxtZeqby90bHu6l+1vKPjxzwBbdJva91+jyi79OOjtudGvxDS j2mVPVC7Hmb2Ej8SAefJ v/71951L9S//v179+7lBZKdOlg948iAcDiM09rnJkj0onGnjBd7+B4a9yw3nqjTtST/mYjWrWQm1dV43 mGGTyiN05HWGx+7bt26A xZoiCEnN74UTUjXLVjEowu0aK/s3NDYPTBj6cOMEsphP3jWoVhfhxGYlLjKc1q3qAkyUq4Vlu1Sbq1j1 hhCOSODq3ejKtS042/z2 /eJrUjb82p71tn/RqdoT0l064MBObe/EKvo2id3A/Pbz58/TuH7zbdaTC8gjElKnNTpyAtjjENHvdM30 YmlOzcjpTp5wcZAVduw9 IHoCHlvJGxBQCrWyZZZLXnQPRspfjoBWb4hCLOks4NEpCok/FsdgIPnRGANxNdOaiKj2gk8vkZBBSAZQ FlZWQAwc+bMpKSkwhWWB BbbAtZU9FVX16KvQ1rwQ0Ua7TokMI03QTR1Qk97nFw38hFLplPva3ai0bkVTAuLWQBPpuj+59L6wmz4v 1jyMUAr9MhjNdAzLjOmz PztjuHDh/WzSPaSGCVk3ibI3KiBivVHn9qVzGGAIBd7hcJbOOIHQC9mjpCsUXbRqF38Sf1d/Ryk2jJaP 3nYLjTGW191bcMyttymg NJB7/xBPiBeUawG1Tz1DvzylZr4xBtu2yGvmXvAea3jKUf8+/xpW8RnAoTa4IlytFFpIMOJBUyrXq9Hk t4Cp9OA20VBwlTihYAk5 76ujgBrGRQT6JZ6VAVOt9NybvMy0d+oa4rr9e9yGoDQhTfNjuAdwy//npkgPSeXQTTiZg6TcWu1sp8Rd Tt/++23QUgVXryG8xXBZ 0MIFgSPIopJC002h84Nb4KkTNapsPwww7v6TtUacD0/v/dJ8fL826dF4F+E5uFAs3Iodv33513NVc9g9 WefoH1SKIHUGt2NIMdQS Fl+uapxMfDNJJmTTvdbHkHio4tMQW7W7ICli0MHzNyJkEZRT2bJ7+VTx96h6p32acKbdgkb24464dNWg QAAc+bMsThYUAtLIpFYH SusXr26+FunqiqVvwHdEtXJlpMuLl1BDRu9vqkoieWtUwNvVS9fmpeSK7koB5ppizdKVS6odgB7LNrk6 Llz+YtUoUKF/ZA70XExN XYB12HsNlFCX8bMiP6w1AUnA0Dms4l39HeSJmUq4DmsOsONoYbEnC/b3N0KGqyArZtSYd0a6oc/+uqrn JycQhJ5+fJlMbNDCFnkC PUzqvCQWy32Mu6cctMw4K5GfHSm6blXaMusFhhed9+SXyLA2vc5+vqacjRhNYUaNWoAAG8+Z6KoWktDx OTTNpWba1MmlyPDzFnh5 WCzEWYm6it672EnZ+6ugKOUh403DZqSK/3w1pYjO7860383y+/nDDw3RSELwjCulx8UJJSFRIIjdscBR FCNqk3gjYssXg441iqxt Wv1AM8oQx3zPet9PwpoCwYBjV539DymvPedbLrkY07kSZ0NNjVpHVWyv868s9ZenyGFYnUy474/++23c tEYMHoNCDMiSnhyNW8a5 rtKDwudL05DK5FaNUSb7Dd7f+q1cs3y2grQg4UwHk76AyQp+sRr2L6W1gwVHTp3NTK3ptOH1+Uh2IqkA bUIpUs6TzHWCeOZZk13y nSaKers5FAmIwz1ndu2SrA41D/7ieqkJVRvfImo9lxokUND2vxuRDdFY05xADreFYQ8Y9N7YDFyOSIli cQ7CBahjX/SokuIEKpfv x8B4hMTx9vRDMcu+s9H4W+ErTYpSuFLJd6jsuVUcob1Lh4u6iGs2hf+qfEeu6ABNMLJch0r0j2d5Alq3 pi10aTgibY/ERQUZApat YlBZ3v9x1b+49atW/rLSRl1xXjRd0PIumuhMrETJmBUUcT0pEmR05/Hjf7Irbrf4K3FjttqToC1r7sG/ Cvmjd9YgO01e+ePWJASx 9eppQho6bsNkXWN7Si3xsYo595EtAlWB6o4cMAsQp0QVdQa3tV69xcQSkd9dg6rExM9lpz1buBJUXGRq /bke2i636+/FYlEPj4+j o4U9wbC06jmT6+syc/z58+vXLlichMHgJ9++viq2qt2ufy+/z3u348ckNw3YmtHmng2+/rnYlQsYQ2xU UfScVdaq6G5Ex8zySi0t ikuyxXwBq6i6dgHcFXJQ3ah5Cl3wLR/eRQWfI313k5+/kKkmcEoYprtPe0xsiGmboQCTu0e8a16xkKYT J2DMlEMeLfjBIwxtzNbB lnnBZEDQoNFjHq6B92svqHKkoGpkFZv4vp//vrr/BJaaD1WqsQv6saH2HhzHkAZThIlguulqXXr5yweJ yVNStlnPVSR2CvDTF0Qc GSmX85zvf3hLWMGvw60WVOZNg2fj84spHcRsNxxT+vItNpZSy42eMLi6B/DtoGyHwu1WnGFcCeIRjgRr SMkuOeXs0WUFnVItpOri MhofKWUHDrFWheCEbZbxCfNt1WPQhVNinKkrDi/A55RS/o7g8YESOXOTYsLZzTpKeYP></span>
</div>
<strong>Patient Name</strong>: <span class=clinicalNoteMacroWysestefania id=[id number] macroname=PatientName spantype="macro title=#PatientName>ISAIAH MACIEL</span>
<strong>MRN</strong>: <span class=clinicalNoteMacroWysestefania id=[id number] macroname=PatientMRN spantype=macro title=#PatientMRN&q uot;>[id number]</span>
<strong>Date Of </strong>: <span class=&qu ot;clinicalNoteMacroWysestefania id=[id number] [...] be better tolerate d</li></ol>
<span style=font-size:12px><span style=f ont-family:[place],Helvetica,sans-serif></span></span>
<span class=&q uot;clinicalNoteSectionVisible id=[id number] internalbreaksection="false originalname=Med Onc [...] indicated for today's visit</span>
<span class=clinicalNoteSectionVisible id=section_ [id number] internalbreaksection=false originalname=Smoking Status&quot ; recognizeconcepts=true spantype=section suppressempty=false>Smoking Status</span>
<span [facility] id=m [id number] macroname=PatientSmokingStatus parameters=ValueIfNull: Not [...] recognizeconcepts=true spantype=section suppressempty=false>History of Present Illness</span>
<span style=font-size:12px><spanstyle=font-family:[place],Helvetica,sans-serif><ol> <li>Patient reported that she has been anemic [...] she has heavy bleeding. She has consultedwith production mechanic in the past, however unable to tolerate [...] IV iron repeated.
</li></ol></span></span>
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
<span class=clinicalNoteSectionVisible id=section_[id number] internalbreaksection=false originalname=Family History recognizeconcepts=true spantype=section suppressempty=false>Family History</span>
{ }

<span style=font-size:12px"><span style=font-family:[place],Helvetica,sans-serif></span></span>
<span class=clinicalNoteSectionVisible id=[id number]" internalbreaksection=false originalname=Social History recognizeconcepts =true spantype=section suppressempty=false>Social History< /span>
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

<span style=font-size:12px><span style=font-family:[place],Helvetica,sans-serif></span></span><span class=clinicalNoteSectionVisible id=[id number] internalbreaksection=false originalname=Vital Signs and Pain Scale" recognizeconcepts=true spantype=section suppressempty=false>Vital Signs</span>
<span class=clinicalNoteMacroWysiwyg id=[facility]_[id number] macroname=PatientVitalSigns parameters=LookBackDays:1,Va lueIfNull:Not recorded on visit [...]
--- OUTSIDE RECORDS SUMMARY | 2025-09-28 11:51 | XMS_ITS ---
Author Name Interface, [employer] Address [address] [place] [address] [address] [address] Organization [facility] Address [address] [facility] [address] [address] Support Name Relationship Address Phone TIGIST HECK [...] style=text-align:center><span class=clinicalNoteMacroWysiwyg id=[id number] macroname=&quo t;PracticeLetterhead spantype=macro title=#PracticeLetterhead><img src=data:image/png;[email or web address],hBJPOm7MRfvAOPWEXJkDGrPNSRJEORGJBVGLHGXaDrZ0ECABKCCOU 8GBzw8y5YIUL TDaGZ7MFPLszui2NJTHFKFQlPoByxWMZrUSTS1kIYnbG3OFWVcDWVJNNAdg2V9RjYXB6vvRuFjr5FEjt RjLI4BiVWzbT9huEmBCg bCcJkGa7O6TtlAT0noOo6XNqcpT6WJnJcVQpoikSG9Q/dE1OwlFt2aidKL85HgbXsPcJ01ZA4eL383lb 4Ho2FDgg/UmHi9RDlWIz IUjeMGg1hDLXzjnkzDadGrZGv9IRMl3iF7HBXTksjBSG/6cXPfuVtIl9bxRvPu34kqFWZ1K/S21VjJiw rKCoDyjy0a+sb6Iza8da vm9SwPv5ugk4yS9bxOTk5ZkkkAAXl1mT0G4NHqzXKN94hOt/kLbR9iJqlYAO93TWS9RT7WhG3CguLqsS PVHWhZ20aIoKI8jfVJf1 k8Kb/n/vzQDlbm7XrQDqreskfUjyBFQc8hN+iIJRcgMacc4w124seh5UH4QRMBO7oJDkYR6UG3nlZEy7 k+G3sHsBFjj57Yq4/TRN 87MPs33Ud7qXTe6ATxKQbgITg6e4hiLHphdyEOk4y4fQKvr9aFRi+u5qNsnwzYSJdcCyppHKiX3FsXRg n49bZtxAbEjL1KehV0T2 vbfbcwQFjF2xTw+lE+/WUQnuHHT0a3FcFE10q8IW3X+PRIDp1lWsSwMXkqdLNPGvPMJ8Cs4uirsKZiWc Pj7uuCGu4bj2/bk4zs9E xzFTZX9bHnGIzgbjvtrw+6pWYmnAQxGnkRRcpfdEfv8J8q+6gdq0Dxa3nS7UIoy3UHt4omwIn9S0hwbT aWlpRIMIkds/Sc5n8WyZ QA1KAdb3fJQbiSAcDMn7JOuYj793Yzt4RUj640/H5UGyCwm+YzsuLS5jcCZu9j+mnigOLWF4ylqCv1G3 Gt8ZeE1V+aVj5e5IzNLK 37eFpdqHvHqOz3nJKlh9IYr1sxpe/G4WKpCVn+AXoPOeuGFa6TUSmJbtGxKhMgXJe5PitFATp6TyAd0e OHCRTVBHMIWHgkJiea++ +02ZIZa8xz0DgcwnkvFZFMLHwEN/Q0VC7lgHVXnuVwcTC7NpqkjPf9EH++w7DxlDG88oCORS6SihOLvg bIHo11aA5460R0m6rUwD 9194ykjneIM8TwySn1j1wUCK5mM3ic1zIBTbEb/XQ3FDikGMAzJQ6+Us+6hlTZCq2gsQRqcybUf1iL/4 8tyimJiaXG8yV949Qk/M 5RDP0vZxutbnSC3F2biPIM0fDDy03gj5Ur/hpyNg1qIdKr111qH0PzK2pUPSpTISUUtkik6jOJMxJz/E Q1VnioZIu97jWtcK5zPE NhUqiy0mkUWT7tIVVvnl94kEtJlKITcXDKqtWEEixMDf948gQRm8+0oeoC1eqmQeYgg/L7/p+TChQsXL n5BHWOlhlRuxh7ucD2/w mDZTo5jZX5vHfTk+ivFim3GQhrSLI6y7DjDRzTPdJ7qxbH/+9+rBcA59XMT4zZws01Pq0bHSRzNunPHF Mzs1hDXP2IqvRqlPoVVZ XRsdO/ew+Tk5JR/1iOQMu9rJmDfQtJivf4rPvIfqC3lh+WXNHPR+XVtpn/uueeazTEEBEKJ+MuYsWPLj 4AABWf6hurrsLATSO9Ki HDhwoWLPwazsSrWrVtXzqKjY+ZUeTT8Lpu6+CSgjT2JYKxst36iDXMrbv+9w9cEkgwU/LZCKujXbzxmx BNyJLo7rmcAqs247waqw 6/2FjcX47Unf91pbiH6Ha/8cUeAMH/JsMgYEaxURcQEG7jUdXRRVsrHgDwfM/Q8inhY5hEmit+MO6769 z7sbAOkJuvym+7hcOtn3 chhhkScq8opNt7Etp34x+l8tdcCLBsVct7iB4eJabJxyTV27r+w1N9gw0vpqv532LoVLhuoVQf+/DFZu 81rkYHDKlcKrxzlnlrR5 ePNSo/fuYYGDz2i7C5jWAXrLzdunJLHFH6VoBjfa0+IXk2PFX/169Cyy3GpZm3dIawqaC4RAWXuufwxP 6ZA48tl4lwBQWwUPQPhE Ob7cfHwaMoO0cO4K0oCjqX8Q7+CzAg2EzeiyveUTJ7IxyMvOgrPJfcXmzGLeIPFIBGTvy42dtCCN+WAA w+JrCjxcx0q/s1d6sLUA roCxIULFy7+YSf08LICTViaYNK3+AEqhOoVvWtyluyaJfUbYUv1cdnPNuu3/kDu96pulubZT08OnP6an aysLDNt+oydrq+Mikp95 ozxrhRlo0GLHkxZFIpe1zfTezUm69t84RYk01eqSxWs7usbxmUxa/XkRbL5K43/goUEb5P9YZ/gwoULF y7+VGtdb564P7vJTn153 EsuyyxeIcHb93sO9YCGDLyW7z+A+WTpJ1BsEPMqgQvM2AtY/C6vmdl18sEx5cX1/OpAutoYyTSIPU5a8 IInJHHi67T46ud9d0rfJ BcXlZCeUMdr5A8NsqYQCiBMoNOG65MViHvbslBmCcnLvDchGWJLTxcJKwwkNFlVhGEp+oUX/6JJBhHc6 NMHC9t3+Mll89gwPILDg ClkiPg1xekKBOmswZh0EJkeEPdPuPh+qzhnd+mJEc/aGVqX/xCT9hD2sU8U6bV1LPhD3et2NFIs8iL3z yg9B5SIf0aVgdxjU3OuC bBTEWshCQq3CGqPWJ7NBhP2H6vyFPrSBluLs/WdlA4u/5z0WktMwKNhl1VIW0kw74fVi88QSJzCpJJE/ LZsdGi72XpIAgQn386qa qq9bDIrhsqt8a2HDi5hdQsTJrJ/EM9agyINlRvM8vwW3RO62y3DeJRlpFBk0/3XoFbmH4lQbh5gB+xy3 mfId9bGXHCSj0OYXGvx8 KPFjZ8rTNbeF1jtikA+JfTHiofaqzNQhnW48iv1ntXEbo6j3ABEU+6fSqxoTT+hwHIdAdsMNjC0VnEX6 L6iqyQqesdzlX5OAaslj O5JAVGdi/oYQ2biCb0afM6ED7gaISWLYZxMx28Xsx23R/J9EoIRnhmxW0Tfp7qWOiQk2UcCgp2M1GndJ xvLo+w5SFWtlUoui/ULl IhmH01bNJQzc2JA0ea/mq1n5COcZd+seVKjWXLgOpSjmWZSWYPaO984Q0PAaTk8mEfcBNvdOZHwG23/1 Zz2r/9dRfjABe8+sdlS7 N+JAk7Gw4qM2fg9gIzIiyg9xw2S5nUlnvqe+185Bi9lEiLdoQw8S4CAar93k02x2H4teB8UnO2QkzqKk enMIjYqb7Yq8t4FDIqw0 P9XmLNmfA7EzCnwwcEEP6Bvb16n7VjnHZFUgaBmAggarcLCBgjEu93Cn9Jj0ijXxarts+NGstlV6ulaV 2tW/dpAOm9LpUbxRL6JY H48maDpems8wcwp/09pharvEevzpOh6k05xcV0WE4Aqa++jnvfKC+UjDpSC9enUQ+Amelia++F3JkoUHcCl DrOFep6qWASWeKT0Bb5c gFuPa8lQabyqafW0pmFV/7fhYvaAvEM+zzPTrbOTRu9q8fTqRbn4VQeW62sRRrwjiq/HEsZ7jwmkdYq5 GAxH0bAMu3YUVGs7zws1 aWs3z9q0jyl0O/r9EZ8RAGk3mLbpNvT/khegl3VEzLCNnb3YPfSuICZEVLZvRvc897+88Eww9n58NFnj j5MEndJxwmT0irCdX7OK cQoAQCSN4eUQoE8vYlenYCE9lvbbvNUETphZhj2516XGio87uBBX58/pnC3JRUMZD6T+iiHKrnbJriw4 TBVdvM7+5mDV8e9Ky3WF XsTkKxGWGm7f9Iok52Vi3If4MORdsuvo/esTx1wrj4X+1z+b/p4rpNiK8tH6114SDww7CspjG8WWHYTy 9k15xy0eE4NgICTC7EN/ /cErICW7+9qa4dqPS/xdKSyq4zlJwX36j3PQWfCExdqaCJ8ynKWMheee8z/sw2ws+woP9WQRb+jAt8zq rAmFbmJYwnO8R1XOd/py m0dO2LSVBRWe1uk/C839YPFRap1MlGoSodrbS3yJ282Vwt9GoimHxaSIf0/r+WPpkrojul9qTIbbUY7E KYeSvjuOW+OEuWijrYoV Usmtq0LvkCvBimFnjnKShRfOw4OauoYrCP/AG4WTUaOVZNhwoYRjY2i+ygurBXH+2TKCGe1PzGLvmEub 9cBH3pL8NPTr4SuTLbUm k/zBQQ198SVtgiPHS4X0wAnKfOwUYDtDd3F5qrCuQ8FnVYqu9NS/ZK+w8qmFtY3SizyVq31w5vxo1R0O rISKj5o8/BzdBHsX31/K HXxpZ5t/i3C3wm5gheBxiQ32t5NkoGqLHdj2Rx3WdiTZ5Kv6Aa5A1Pb1BJY+T1RFYqot15spbNvi1OdT qXXv2/XxZJ5WB8aMFY/G /HY/+atEl0uxBx9FCaiwhxtM2jzO7SXm/dZXYavUTq5ACQifl2Lw+367c6XDVwbF9W/Sf35ocHo7RceB JlYCUly+qGsVlp0V7cio CeVaZGMSm6tPCDZc8iFVDL8bTzVbXShBUSCAHdgLfBEQDQ0EKaHcGeyNGDGVk5ThmU0GxmkhdLTihapf RSSyCEgjJiQSafjXgRcs JCrOWUlooJFh5jjDk7fYcV/cmQ0ZwsQjiyTUDzR/O+c4WkT8Fm6IDPDckarotdqtzvlygYfyNo4Nj8Eu yb4AhYIa3z94Hrz6ovpB PXSW4IFccHVlgvsRJNhpT8ADafWy7Nsfxpu/S5k4KsrR6FEUTwFyIzEBdEdrzYJOjjZzJi4JN3kGWW7V IR4ztb1+Ju/QKQ3UgYct P3MlzSTWRsWHUO9Wjjyenxr1663C7MkXXhbt+F+n25vrAKAOpWwWIEE9vqeMe9VuYRwvPpVWMfcQmaBi 0g7vNPTEzC9avGvUtpDQ ADobXIHDxu10O/3nqyWC1ffcnqq8CjHgNHKLZQTGRDpX36XcylsGMaxKKrvVGkbeecfRZ1RD+MdZQHFM Szepo8d1f98B+rz7cpc3 ajuztYweO3FW302qk7IMU4ve2wiM75f0mzW8rE1MsfYQRdVkA+aX/LM9iicl4MnzrEUprfrJW9hyXjP3 39o7rr/YZOUnGwe/mCRG bV8/G718hVJ0bYuoRFpfjBLyDo0MNsTe1wUbtRdTHLCqDedUZ4gjU5gJMgaSmEAifipNSJ09JZMeOb3y t5AURHZynbxO/oYFYcrO ckCCCbeIxY+VYNjgbRWWenFcCPXcNQlVXWaFke6FmxmLQP9HZPiS8MUSXGc5h3sEb1WudHVmdkIr4TzF MNJRlJBVXqW3XsTiKI6N SjAyBFASoEE81GN5Vq+z54DoU+02BzvpkToDE6EkTpFf09GYOuYia9deyxsyjyK7MRiAzI4McOCi6Hvx 7UfSsWvSgiiWOiutFkJJ XVRAgpKAGFPSGGmUj1OfjRbi3HzJZtOCpStAFBeBx95DIJfBJKO0+D2ph/CU5uwUk8qLEcxkQxjLo4tb 6eVCDsnwhq76ARXB4eC7 umYCOTo8m/zl2Zz6EOWkcm+j66f0o9zZ/e5RF4Y/Hnhh1u1OUjnHqGDrUq2CcCuDuRV8AHm+VLlxmvy5 AcofgChpuqS7Qjlj+PO6 f8JvWvT93jihAiPw9Zd0HExUPA0xlnCmTBXZ76tifUM5bkRyuXvRa/uPEQ0OAgksjnAWFMTn8PYa5bOB iDNFdaFA50UTWLkOiPL9 uNgxmoHBCB153OddyX0NfxlXmO+xDaUOea80cBLp2vxTebz6YC9tyVxi50XOHQ3yddYOyLfYr3i+f9wO CnOsA3BQHjbsZHA7K5P7 wjXUpvqRnEqhBm5mk8E5N8L3qtXW0MSctcCISpDr8AIzH6j/YRQ91vm6haLRNxMNohi+O7K9vaBcnW8I fZ7VRZVAkaaGxW5B2dko fnKUzVbOXZRNezsnXA4jAYEWeC/iZBwUxX8UmTiProNGq8cldy+pQdtoqi3FB+hHMkmMtWnVX6X4X8rU GBQ+g4SKT1oBBmOmdwgO bR5HcTggENlMLOicElK020oYk/3Gkt5mjc21f45ame5hRgGUkSGMdFNYpxbDfE6FwtObFkw/jzQCfb4Y Cxg5DFvOakRiEKScNZEY mThREvVgqWHYuqoZYL9A8VgsY8oJCu+WJ8W18aCTYV7TlYXeX9G+NGvtFxSgxOVVDRbPMr3BPpS+2Bdx WCzLMEtAP8TbiL0UxFEt V9klzpUeeIKjxhzJ6IRepJmzvn/hNfKqxOPmnNT93xNHa7eO5DqD7uBRJWHAZNRUdHVmopTbAMulUZix lEowWCzDFgUT69PG4RZU ZIQmewHaA1wOSB/pXj9/iKcwPPIsAvDxjEgGiP0WSrFHpn9vKOQksY41/R1rYXyiS8IA3SIi8CCJsS+a Xha9LopeNesyUBPmwdor skVDpLDXmbPUZUCagtaRsbZK9vTOobPE6yBrBq4VxSLEWrX0pFrn3G6tlGgp694UAdLrnc6L0geesK5f 8JH/pd1MLpCKzNwhA54C 6GxkxWiV/wV6PnTpCe6CAL5Mi6xOX7BPlSuImHNEfB/4V8Q2XrHAO2RRJKJFSpANo2sTHXjKynjO3cYL lBU3mkOI9VlFRpMAUU4N hBGRPDtyaJkafGoViQVyAg4YL3N6onvhZiiOD1MZuApTtjL3xPejUmsbTj/lBAeWIjcF+WKk3ZgiczTB 4qgsJaBaGxw7X9AL3rZL rmfSHdfNP8ZGPo6+sArwNv0EyrYJ8cX3irURnoH7yhGt6RjqLtts+9OpgipdxLzTuLA1QfMeJ9s72Yyr DV9VHGqQOCtwcpXsAOmN e9wLHv+09uSTZRIIxkL0JrctCb/KuVSP4OWDjuC2BBNumMtQ8ReG1EUToAf4CuPMAyomHALNjE2T2oVT EVFKTLgmjJpfUBHSc+uI +9Vr77Xlj6iUqoEGhqtM0WcDZmjfnHP1wZvt9vSymntTW/vIkQ9HER6mbGOcHcF7moDdNbaN9+WhymIc NnvMWIyPh7sKOuckk9GP 5gaeBjOeKQOR9dPZVGTsdIE4fY5zQ/SjXqGU6OcLKMV0m3sZG87XmNIrQqK6YgdQxoH5XCzZN4sVrimU AMJdw/RFpVZwYBzcD/h3 yVoB1vyxr9zh0C2JvsWUcd/pO5uacKI6wmBRuc2hcILUktywsCfg9K72z1CVEsWFxmE4QIcAzqnH2MQH XtIqRLiMwWI4uolgJss5 UrOfhfXH9eSTMRT7QreX80q8AjGlkAdFGVO4gMzyEKRaEwU0EaENZrVzvwhOMszy2M4/GodaMvsBSotK SQx8T1eeDhUcZnRI20LG OcCzoopN5fOePXdKqkbfve3WHGxos6gJiY9ol8aYmiItzwF6vrMcGyHzO1STV7C7gFzPdiVXLu5YgLYV sDEzUCEAIAOQglP4btqL fNEnraoW8cMXH8JSuPG+3AJd0sD8IorMVgV2QGV9U76ZyjLtvpwrezuzEvUqYPrxYoVBiWiUezVokEE4 KM+agpYQOGMHp/77gA/c Jp10G2REzcJ1Ve3IktZ9Dlxo6XVSLnlZ+kKaqgjLFb6eSsj4mITmVEt4Mz/em3rlK3yrAFT2JiJcWIUI AlxfmA3hO+LS93oFcTac GyhkowmlSzYCNWF7HtJI2lQgooG7hs2Dd1BkSebGdlj4J4vF1xE2fLitNiOvfb6stdkpGNu039e/Zsy9 +ibt5eagsVOCx665esRj 7WQoITlz807qLaJY5a/TzOZ/eag1lWx+wX1JgFl11Hp2yE0mThbP9Hl0+7E1onoaX3Ow7Jnb7vHsJ72b vyrAgYNLhkGMJYRAzgaw 72VBQDX1/h/pmWSCWfErqmtEDKXXjERYQZdFfYBGJA8mWaHxgWvBJU4dEN90lNeC6LgpxKlSSwrKoYtR fWWDKYDBbMlFM85FZju9 O5HIrClnsyXyBmsrQnq2UL2n63Pdo8BhtQLGZ+sgDP190olqY0Kld0ez+y6uM68XyjqLF0451NnXCdKi kDKwia3e7TUBfviWQa9Z ghkg5GIxBuj32xWiQlQ6ElvLS0OoVIQs7mXe/Tc8xzJPg/sG2Us3vsHcq0U0uBQytiJ1vhHNLs3HFnSm Jb8/NY3fPrWqqiBdn1vN hOTpMfA6+XhhfRe11nJ4tHE3tXPnj9iG61mY0yG0VGU2L1gFdp2iJMqovHGP5HlSP72iCvVFXagiRh4a 7G0f3JBPSthhFK9WmvcM oVL8081ZbSOlVGqR0vEFR2ajOGxiiZcfFj6P7fXrMouwu5N66DLBVAhLr9AYXgAzF9WMtRigkgJthHFa iv2auoJtODhs45RSfdFF LXqAneGA+l09XmbKxlIdYfDcCrunrn+aLzag9MaQmJKP55V/BpBtdmVRxuT3hRiZbMPaRVO8AI10RDCy DXMEGemxM8ceSOWZVpPb OZO0AGHUAHajmLPPCnUvy583QHgFPQAIBMlm/7+ZFk+wCUDXr4gSLTTU8+UQ04+Q7gwfArkhHsmzxX7p U/YLqwVSxfbgfTwgHttU R43kmZr9Yft5SVHoBk9/7tSj5Q6bDj78stXkUy40bejThCSmcd77k20z2n4ZnPEekDEoOqhCbBmkB4Id ZofQEsBYmNmU6CMHVEmS PyQtklXWqUGJofdAZAxMzwDNdTavdWGL4PwCR5WDAnvdQRACgs6ob1z2WzXHxN7qwWluIPNIJ1yqbBEk FqCQgEVotpcfCsfj8bol zgLSTNvEtWdlcaWbQvCWh12L5G56c7sJdWjiTg6THsEd6HQDldNtXjwHmgeWF5Pevu+FkauBpRg9z90N J97lWC9MkOW9JHnbBXS7 ng0BVehRhLQBpQaB3PaYPMghTCMhfGN3LME9yzXWLbs4zLZMm2fCZnb28oaZvi7P4jatgH0GfXBNzNFW snfskkOO/4gIpixmVKI4 NuH3h3adWyrjKybjVZoZ1bdqvmBRqR7PVlGdjqvSAatweQkWBqgQkDqVPGGOUORK+Xg08+NCMQkG6ZZN j6fX2Y/do98/TCg0xGIY RI2hGgpM5w0W9cnY1iArI0+I5AlWazWBEWOIi02YEOCs6CacY4ZHjugrQ4IeeHTtC9owSUpM6lkIqm23 LEC+TnbwyINl19goi45D Z49XZcuXxOasiJ9uARjQ5icnnpM5BR2L4vSpoXDMRbzbi3mTWXFETiQ1O7FEFfiNKQb7rIusCYeZQBtk aO9aVeKp+PggTU6wSpWn xzI6UIMXqnBBVHd4PzJAUNfNKrOQOIumMWamn8Ksj/FfzNOrSBn8BTTB3B6CUGC9nFT6PAvqDJNg7L1Q KHIG1zdxpGOHS5wuAymQ o9Chrat2dg7v7x7h9kyq3bWyr4Sff+fRh1ls5CXdk5XDx1Za1EsaHrv1wmBOXdRv0D/Ww8N14Yw1e0K7 xwoD2mPhGyZAmpq1zknP VQcoE0VdsH/o1pdyozf9s40fZf4lI6xmKPAoofzWpXYvzxWSYuCZBON9cN2PNmdSlk2vJzDtnWDxgM5s UVlV5KyN53Yt2RSj5tRW AjpDfTYjQt4yYk2DsRP5ILvT7VGeWIunn5ezFtUuEJZbb6GwpZyYSfFIYXiiKJAXNtV7iq3IXBX0cUxn paYcWatkAjlz2uc8yQ07 Fh5+miRjtsAJr+7JRNXgTqGRHfpV6AULTu8QcH0CG1AP1jFF4cxBvwzbYtmQkFbfeBgJjKSs8Qw5iyhX EFoCGvnt5YVKUDJXFXeE vfqi7cgiQZ+CI7fKI8r7TsqpP5Cg/ruEXYDoevXYYwurWU16mg0oHGGevQ7ZzHPc7cEO0EeseDUpmIvM KIZS0DJE9eRtSafKCKob 6HbM1gjTsor7200/6Nk1uF7k9RZ0H0eTWqDQerAiDBt1Qu4IV5GHj0sbvXI/pfIss8/UaavVkMNUSAYk PE13C8UQqixI/qGeHVSk 4imbzyYkuTN0clUwH5F/u/O62TF/I/oMPhX+br3tn0ArrN6WWaAlTA5vePCrcQOwLllHJWWgFU2+fEGh tVZF1RYcycrlm1RA1H6d JUPzMmDfaTRHCzU5ao5JDvodCdjXOy9kxdXzJ5UKcIaZFIMJpT1O8NvaZozAFTLUQcmH40AHoaMXB2S8 ouaiu6iC/ivFgDOKm4Ne PU1aSdfH3d1OFajJw5XyY4KXP0Qm+IgEfH4jWVZKEFbnYMRoSYxlN+erLRn4c2+WCPl2fjwlJgao2id4 lcNWYF1RgEetICCv4LTJ Ir7szeN7KHv/WFqSnJMaH5Wv1L9n8FnMS3DwnDPx3qEEq3HCicr/b852hFpfCFLqF4I1c/xQ/kXcNH3s 8oB96S/5e5iDXH8GfM9M epuhcB83BVrZW3PwrfNJWejfYY9DGI8gFxYluxEWSV5KzqkdppGZ6vWfjVFo1UdaTFu5IPGChufKt7t/ wLRyHjLyMxdyrKj67O5N M1qszLbAxjtCcHT/9z9Q+VK921Uo+9tIB3a+pVn47uw0JxFjJ9h6q6dEzzW1bHeNMr71X7dTqXtVyKI8 KtulkhVQCobbhvHDGYQ0 mhIt/DmDpj4gbMDFJRmSl6QTWQXCoIBHXAKzIlgnoVYYDlAVwIsNNXrQUvrUrcCcjSzwRMIJSQrdo1BU X3T71flCtCiCyRhkI4Fh OSKJ6NdpENGtIdEujV2Cd9VlwxvijJSAy0nzE0UJ3yyUH5XfOV6C7xQioRKkKWoGwodpIeay+CJ28PII OlZNnNxRzVBp54BjT1WY VIMA4jDYV/lsbR6QK8U9r84kILERzDisfLVHbLiIVdmLu5Oe8ERRgr1M/OYG6D2fr4E6wMt6uADgCSzD KHUYWiBXlNWHitamSM0A +2G6CLhRewCCKvkjqXZik3rcRVgQzdqkeC3v4ltw8M+VO2S9hSWjj4PaoZhFdKMltjtM4FtaANIm1B5I t0Ve8FqoLrqWcdA33isM ua050gkQZ+s68NYn7LUEPzbE+OSI2Aq12rPFskOpxGOQT5KunE0Nd+W0fzeDDa1RgxqzoXRJ5M8Lq6L/ 0vjcYjag9rBbhd1rDPT0 eYJFOkkpOIsFu0SKjEd9Ro0Dg4I47H7dgZ4IV+jXYkrOkKO+7OfwZHxUlKR0RlzzC6fEfVVc/Ap2pS+w I8OxsmtTMM3F5L7YdIc0 0ddcrkse/a8Nisttv4AL8bUZ9ZPKn9gTspKRf4LAzA7sUPKU+5kxXvjCn5lSxEpADNxkeEAIoDJZvftx 1HhMeqBe+TVkU/J0Dsay Z23rJf/DKonr7+fLSe+JUPeKtVtfUJfx5kQqV/L5l9/snBcJ4lc1f93nFVvWDhMk5O4WsqbZekEwyoXe dPkopRfGsHKTcK2VXWIf 2f4kpJUjjmFjurAkhDYLDIjCQl2ugUiS0YjIRuwzHiaH74TOyHVuJ95Ri0eXnSxnc5AyIliUL9cvWPTh 2q5CPBpvDqYcGM/g8LR0 qcAeUUTJJu9643nHry1ZVKkh387QNatGkGwHCyYuBvSRsWUQoBtWBCOncLhYQke0EVMDdXNMDosCXZ9h duYYXLnic7d5Mw4kPCYJ iTvqG1fUtDkNO88dk+8B1g0pAVhWFCP0WSbpEqu+r25jK5Io17oBpFto90TXr3ZrHLaL/OUKe1W2MUp1 NEtOMLGlCzefuxU9BM4O zbH6YkX2u07btpZ+sk9HfBg6VtBVT8Z25V/sAV9XAYoHjQOSJi3Omda8SwqE3jnnzBoea3n7twwt/NO9 kvsxzSDwSNtVkfgjf2B4 5Pfpk+Wxx1JtFZzEJkUqEHVz/py0lQvknPiksTi01FvvbDQ+RJMkYm4a9nMA4pTyu8nTlYDEOCkugi/P yvGuNLcsszw2GAr5bIyf lqJGHSfkGL0sY/7C1be41lSou5tE/bNufSgdbfb7b9XvwJfwORo8Tce7u8JgoduRBFUNa5ydSIvwlDFE 4B8tE+6Ys5XLp9SQj5bj PTXH+S0yIVe8XwlEYbf/gG/X/CibxgyiatNC2Be2Y/rrIbtVoGmpH8YqrloXvi1N7BLfPrY+C7TxBRsy 9otrhyG67Wzta8IIe0zY P9nVzGDa9iLhHlarv7OFm7G+q31YjXrq7at6n6VHCerSvRqh+T9y+xVC/B5x/NhefKvdkXSWEH4xw8n3 X7/6HDoqJAAUdnBX/uzD W0ciQUna00XafdwPdzpnn2Tj4pbvsVH8efSthLyYC2mrFI84kH3npYdCIDFKpwI3hz3l9jp7homWeGkK GA9Wjtkm9s03k9kM+SXH 6mv82o1bs7mTKRlH2GgBeS8/u3qnblZQinXhfgLIYLH1yyoA/oo993Jll/tKDGsjQTqlkXeUJ4XNX7ob H1KrXKHPJHZtfjgArzn1 gZB7amqAPOh1d7S6V7h6h6qAY/lCvGt/VXyV6+RiOHea8YtY49wEXF6IrMHpCe+GCZGBYVPioqSpbikV CEcEUO7c/VS3FOUEEOGA 3ut28JgylFi5/XRsvqd1+FgS2NDgHw3ytrrTDEAACdqRYisa7S1StQSQoxocxjIB1HGojHvuOY7vD9gS WoJFJZT+Lyz7C2cDQnJb cImdoybtauxh9GcQZ3HmZMEffr0hx2BBc36GiDy9YA3MXato1RY0c9PiV7/ody5h4Lz4f30EZ3iTc7T3 CQfg97fJXbfEz4qM0yhF 1rCw3ISNimooRv1TtDFF9g9N99tHxX/qwTJ/75iyZ+qsncl0tUTNnslEO+ALCe+kTd/gf2QMrweOOSo1 1RKrKBcDrLp7pbFEDwji 0B3BGRnBHg4xdSrCXxoDyZaeS0DYi3HR55/KD+oCgFRh2nAeF4rnMVN2PcI+0ZJXkYd+6w3l7VwOXKmF ZP360+U8UCoVFzbvWByQ 4n/4mPTl8n89lwFR+MkWsqgCxcuXLioQcRzYTHJZwq7+dUd+ci6vgTqomXBEo6yb+31LGh8M8w2DD8X4 juk6qveODNHSPFY8gZwN TfFCSA4bEKNCy7cvcDZiEOD2vPP22131DeK/n1tyn8fLpxV9tqEVae28AMT3km+l/BLH5iqzyOpUnbXZ 9djfcORS6QLzEGJFht0M j0xT2VJHnipogFiTjP+F1JxiJ5QDFK51Fzhn2tT32xpHLys4GwT+Uk8m7Z69KQq+hYeAbNEBbF6nrZ47 6G5ChkB62JYUNGKBEEGS 7obpwgW0cOa0jXUUbfs+7+RYEG+YDy7HUZGxEmr6ufFAj9ydUiscOAQ1zRlJFqkjFD01UQzq1Oz+e0Oq viaG0mvSd67YrTGUmVek 6lXBgl3YEgCuLaFoQquRixalnYydlvu4+7UTw1MCpZk3DZP3jVOFOo4CGefFIrKO3DAkopDokt5VELBC sojcHRVwn7ZzxLLxHGcQ gAozBjuOnAlA01Xjq/bsRJANSSGhTCmQRco4mSBrx8ZACFDVQrQHgTp3UnW1rBaLwP18yrVQFhHi0XEi 2cL008YBS0hBMc2Q4zas w3DiKtEeYhTE6yBs0xYn0jSwu9M1KO9NpyGzdzUuseV9SweTwcXoyBDLAS/N66fbEoaTMcdXpRjmud3f Nc3EDOAiz0c14uz1AxTC Up9dLyurfyRF0SjLjledEbIxucXAyb2sWAJMVZgt4cvZfa4Ns0bZW7EDmbOFW60zn3sY/Ecl5SRd6eFG Q92L7Sx/4hF42EVhw9kw CQhZPx7zsu8zzrJ1ec99TEiE25v4WyRgd0xWK1LFQ82xvNcOT13mKbln2UU493uFPf0HyenLY+j1k/Bd kn5+XfelWxybIbz59ugI Fh+gNPl1Y2dBUmM9mxRc9onxlP4UlfmyWbDcMEkk3AJ/lhY3aZrR0m/P/zB7EglqRB5NKZ6fcI5by1p5 YzvkQw59Ecmak87XDXKW 1cMEwni4xXfdCQkX1b3Qjl6E0IvczK4SAo/AkSGhRRoTIrBt708iBkaW+wWur5UHGPCDSwtRWnHkt2vv iTRi3dLgrYTk+WwVEBkb yyk7vygauj1FX/RtjusBLVqnNnsQb/fikHNZaOkBrqvLlVaJ52ctRN4VPQY9vfdO2oNC7dETH+W5j7am 57Mc0qHObaGk6ga+Rpm4 +c/iCnMg7k58e/J3bAx44CfBLAtX33SQ0O6Hl+N2C1R08Y2gCtJaukGcd0jr2lwKrNlWTZgYx+YKgVlR 6ehwgDnWiTWpfK6D9H7Z Lb93HtjSnquihaPWac6W/D7X/HJwe7jDPzBC1dugSoW8c6qFvd+sXDEAHqvJqfjF1VL8cgfWN0YPr0n+ 32+O/UNten0aqILeH5YL LiUTfcJn1B2GrOzI1e8ZOnJTIjzpzMRaaoO0rtQr9Np17YHy7IaKARBukMNOslwfhG6XVhEy1/tIwlFD 5Yf+AGcZ5HNWwkpbWIuB s4y0t9tM+dt1v+7v+xi1kFu3+mEoe2DDB234nwvwCSAuabLCBCofMm7/H20/ljh9m+Hxjuz4KLbhh2fY iV3Sb/jcck/CJlSNWCB1 I8daKc7ZwyOakKDXQrTMlHh3b2NZzEh406T77ksmEj1OeKruaci6zBr3OhKXHB7PHcoZaoYZCWRKBlw6 lYbY+c+r+/dX4VkN+l7H Etp//WXJIMsP1knP54muheC16mFY1yQxlo/JNyPd7b35CmfRxG2W6GDYt/pde+ZCq87D4sss0GHTOz6/ iwhJXWfjOuHyfajesSMf fcV7LAU9vREHE+qvVkba/feI7Ev0nY0V2XTiQeH6B7XYEfO9Jkn07I9K3JjNBo8SpWpNyNZ1/xgtJE6G Vm1shvWtfCYfWZPjfSkm opXeTJI9jntnj67GWxES/dvs9d8Gqb8h16NikHOPZ6g3BhmTk9hwqE/r40bVZW8O9pytLXb35BZlv3KQ dogQiYqa3rO3mOReoYYf p3K4zH0302PVhrHczy442s/rlXdqlfLPqeplFnXatnYx+SHxoEQKQmUmFdogSDqdYBHy41UP5Lp++nxJ ko/XAboA6zFy+xr/d6zx Ty5FIFjRF6aSnq07Xf04y8D1eBL4ulDr+LaKnwuqbctUP8c3FV5uPp3oMLdTlpZkM0SSQaYl16RtQ2d0 njgn4MM+Hh/CZSpVmex2 Ua0VliMeV7iPUGUe0M9mtCG6fd4AME2LVUflix/6xw6goTtepmME17idH6bErUTZ2y/6/B7b3OuLjuV5 qj4hognMf70cvpu+rL06 lxbFxICXYWzY8t5f+h2msQowkVugv90U3udv99g+1jb6/xTYdfXXNBzXigKnBHYtjzCF4FbA8ViZbDHa JzPnNz17a5W25MjGqvyC G2lsk4ZmTqTTL7bO0bQ6PFSG+vvmdJkp5C0kVLQeLh15YDizL+jc3XDL2iI2uUT4ya/Q45wa123gnqXG j06Hvzmi3622LpRUac/O QRHuKDdnJYIur2C5l14uebCxLrwnpXXrPw3HlqEkXxWDjDS0r3mfBfIsu2HWKAuP7CDIm2mlVMg0PiXe uTKPUx7LQmn+dw1882v7 BaTRH6lJJdQSBOsTa3Aa4wCc19AwF/+9h/hf70q9f1ro/wRZRxsLHSuDuq+EgyGXAvj5/oLWeN4NjW9N uONaY00ztPaw86rMAdFJ uAmiFtY9E+vDGOc/qQIjPRqEzzOhRDnHoZ0EM/jG03b1q0Qpad1wPiit/ieGdiDSn0diSXGUgtyVa1ei ZJY/H820/J7B+j1JiMKG ZpIvw67doc3dwbAeVbjLwD9k9XbDqqeIfRxQ+n8p4NtTD7N4wViizMX9s0Hk14jlstc3nwtVPJH6ccNd tFZX+kpuqwiXxLyi9g02 HUd9MWito+4R5KKo+3w+Zar1ilye0UTqs4F/a9j1/XOxydwlfynAA5b7tsZCuwFFWEytziZwftKPb6W1 UjXKFN/UJ9/uSSZMTJ+T lfxeIi/9hRm7COkHIttmRbBgl3qIc1sAw9HYAMk4smenLCYRzmKuzFxnePkWyxG5kCyl/K2uZgZs5TMM rOKMm5odmpzyNcd5X2OI WI8zvUiNlvrKkXFUpEdYzBXbE3or/teJGPd+8q2aG7tzjyhik8p2J+f9MO8PKLRuAdljHPrRk8pwFR04 HpFhPyvFI76FNrgVIP+/ ouKR0qpaT47zmGTaFEWRyYzag4KDmCy3KwLzD6BXqVt3C/VtiDW9ii5O2Xz1uOK7RE3Q8fOpJQQhchOZ ppaBPNkeW+SmvW0eG4bq 29Zp+lF/hGrF2EANYYBoqRPq2vo+uyipUuEGDfkI9jpFEId/jLtKDMchoLYVOOJgjsE3M8qzhHSVcnqI BiFhJmlVkS/sbnaZHK01 KKxpKmWoY+GlYqolYcFiLDtj8od3LXBEzjLa0pK6xQI9NMmkeHNXXrKb2vaNgSwpAX3PL7Yhd6yqRRYf nkDq5U3SvpfKu8wOQUKB FgieROATmByLr3uhP4NP9tiPvPwYAd2nE+KTBk9hrVUplqR9OjiXrJY0FQQ442aQjv/sspEK0jFo4oKZ veZtJT5tO5GfPLFp/Sac 1JyyXvZG0xeOhWTbqx1z4MsRkWc5TdkTqfpPmlxQknf7CXX9Zz3GX/bAoiXJ4B1JHBdXwfylOIx8664D x51F37SUunkd1d1xORhr w4anZ50I4Omsneqjg1rJFsX7v04mu/maCpNejy20wT7gShxM6QHBcFxeA/eh1x89F1gKEt33AlL0Oiu4 lRv1cq19iuhSCmpElHgJ CDligN4yXsl/bj/aH+xs33+rqhNAQK+VsDEQv2WBJc68o32R3tI2aHhCUS6cEx+RXZstJNusFhYRpetF y8l8AaOiKuWKDU6RxLMc yVHcOakhxR2b49BEHYTfLplQa0rI47x5OUosgyriET21wJy9+0OhI5z67lEiKhSEWBSuPYbpHFNnRgvd Gw3phUmHyjO7OV5ZVTD9 hGC6bFiep96bvv7T8Qs0vu29N6y10EG6W27XZ0Tp9CB57ozx3yVAfhiwg+CEU9C2IQ7FKDGs8L16ORNH VdClpSZkDhQiP7xXg25t oukzE+2crIlATUaAVLN0lPQ0MdkV+CgOYawAq8P0YGOuWhfdaMvwwhmIc09z5a2J9Yg79c6DtEhGW97A pL4zNJuNBbrDnTCkDvRv OnTBpyPadBLDzVKn30+KnxcVfvLXcY4fcKgbHrJgAgIyatAElfCpxno+b5s19C89CGUwvCmywnpVImli slNxxbr+53zvLpD3PVpu W/XkjfyACec6kG3uoemYdfHQ0poMD7eI/Oxfj5D+1KrigcW3spdReTvU+oNzXNyjozbaHymPoUZ0mF4z hQao9bw81LdV56THDJgx BfKem07FIK0meUkrMIB1vH44zd9/LLv9aLNrDyg/EuitgUIYFY4+vvvdCtMA82Y8yDEy6fz7J+sHd/ep 1qVFlOrhNZpMuQ6XxjEf LLjxEQOLyywpgTsXaJy7eh5RIb20Y+WjqFzg06Pm6XwQ10ks8HErz0yUNxRBXaYEn5PuqkaHi1OmpAsw Hi015+rz/JLgiekPZrAd MoXtFYOVKlwgW8yMw7/uXgTsCKqBo+DgCZVEZgJp9AOvlCOimz2+3DuBThVvmSHykaReBTsaNPZwJ20g zouM9Vfy2yBXXzHgWWpU ccpdtkTStnyFXQUKxhyq/kVo8FdMjhMa/Sgf7tR313uFh2PAtupRpVyYmmhg4A79twYMBI7reMuUQKzH QG1+iyzQVYfs+uqDiM/V gPdODdW0RAXcNAXKr46j01ztTsNhmIrtITNm4YlcV2vVn0Ozx18yvrTeMuODQBh64l9eXGppi3KyvZQW RV8voASypJ4xeVshakIO EVSVCoUNPr131phTANGLVR2+6Jyeh4fSQkXLJBkyrgc5L5c49sudTeowvpfnv5IBXzEVlPAFeTuQsDuF j5B6Xl1enK8j5bDHfshJ SQMTNnmSJieVm8WQY6wlGTY56tcVWzg1+zvk8C7e9LYdrKbd1A9hTh+kMFgvcLV2vrMU/5z2u36sHF2G c5+4mZnx587tm2PDT4Zh lG5pYoq/rSFsu+Cw/Uzc0/mii+wu2hOqf1OUklHYnr4Jn9e9X0UONDkyOSpcEvj/HwrWfcc2kKuUBAVF W89SvFgY4DYb/3cRJnRC inI21/LfqJ+LrR/M+Vp536/Ojym3gAHdoykDIvkkKa9mdHtfi+H9Pscxh9mkM6ebyQI24aw6mSSLjxGK e3/Ldc8ykmKKG45gbmw8 iMD2pJGBNhpJrvR+HKLHapORxQxghbHWAbJYrAetbo2TX1JjD9VcP7p8I1P0vq6puWwVTwvdWBLEbh+k HFz77Y/G5SA9Iu5rOjM1 1ZR3bwq2J7FelPOYT+L9r0We6/mLLlI6ecgVlT63qm26bsaHUlosZRhhrH8nAzvYmmS1xbK5RH40l7uw aHmCS0sxlQ/+cXrmWTHV ix9Z2N+yCW3lRtBHs6GNV/1bHkRHLNtIiiB49cUZDNmgRXahpFMy7t8ns69txBVHjXDKvDsgOtZ/u5ir peWH43I7Ik2NlU/p5VN1 EYndtFh3FcXqaH/oa8G0QLF4BuOob7JrRt+PfL9LlwhLnJewp61DN7uCq61cHleGXWIgtMnKEftF1XxB ARKleyVYbX9lFs+/vLzc z5FMgbfZCOduBqjrDMjIHaNkomz7f3LOYn92xxLk98hinCChaPoLshuB8YEdtNODVSPPDWeFzmeuIGZ2 jIu6Oqy045fbQt5ZXfTr aZ+T0wM3ecsPJ2O73r2vGUSNG2xQwffq4EurH3gVQcgul2lYvFpCrk+LgtN8LoghZ4dx2tKCK+rnjLIJ /Jose+v4GOaURvJJUjBI3 ZIRfE+FiRVSHkAFMbgx7NTk5twF7E//m4cSPDYcsp4Oi3V7i9XldpQmH33R+20xmtXh2cX4yHDIZqUij zfwyQPaiMFYCC3dx7N+z QSH6J+WlOo4ircwpA84Sgb7RctFC/KVpG/7GZRP7tb0s2f7nZlA10qOw3gbyz4dI8AKkDyDsPSoFoWln lZUdtESBDjm6Ru2jD9Gm yvkHxT5mHboAJW1RG39bcPuPIOtBAvkvfxA2mnxT5Y/ka2j/UhDMx6DDCTQdZsY4KNrbhQaytf8i7ip5 Twny9tneGyXf4Qc/dryI Ni2r2fCuk+1hVLAy69C/W75te2E/3csjOZVhXSFc9GcnYFNQ2YvJniFUYV2uRMNH70dyE3bmIGk8vlX/ gYCKtg60HYVdEDF84Pyw jcxLHt3kUsX6bHdmdS8Jj85i995HebS5IPNFVWUyzZCRVCNd7pzzqOSmCA+Yxxcy6VIveXi57hHHl8FK mAN07UJB9HcG2qxt909O z93k5VfC+iap9f8Ony3lrbRBzKlb1dM9Vayao+/6rtvErZMtHOJtxsKCiWrg7Na2fmEBenINdgWzW/oO EwWP6NknpuF+EL1JfQdN S1dd7PGNDmknx4r4ovFOhVAI1Vq688jYR9T9H8B8zoLKdZzqdwAp+dHyaiHADMqRGaqsDpJy3+alos4z NHrx0uN8MYZMwwRlT1eX vGBStkwUeu58gTwF/Bwj3erctbBnkv6z5u9BS4Xu7/U+u9mP+Ngmil53fK6uODin6V8fKyVG1rZxTF+p /cNzRXUVEabo18uNt4yy D2OwIcmSk0N76p1ZotOWxRCsP4x00oyDwyoKi1+q/wnVS9U9ADMmSd9eoF1xAiNsPcUomZFvkgj+ucss c8Xfy/tD0/qNWplmDWSv u7gbykypTY2C3pu6VtO3M2HzU8LWe1+mDD/TETE0ZGSIybenX/0EG6Y6tZYeOH005ngj/5tMy2KjEKsv 6Oa33narKmrsBxBr7Q3L fXI8zeN4h7PAkh502bSGrFEPAAWJ9aPq2mMujRyvEglP4nVi4KBEdSjmllcA5isbZNjlqdypkFn72BM0 pR6K2rgvubPNDI7mvHOe FK+oaGHFeFKhBVu1wwMxQfjnMtiF4FI0jsXxJbrDIoMKTsJGbaLPQEqaRZSbM1RSJI0qCGcSpN+H2DV/ +UKuR2ZXTVREXqKKrEmRpQI></span>
</div>
<strong>Patient Name</strong>: <span class=clinicalNoteMacroWysiwyg id=[id number] macronam e=PatientName spantype=macro title=#PatientName>ISAIAH TEJEDA TINO</span>
<strong>MRN</strong>: <span class=clinicalNoteMacroWysiwyg id=[id number] macroname=PatientMRN spantype=macro title=#PatientMRN>[id number]</span>
<strong>Date Of </strong>: <span class=clinicalNoteMacroWysiwyg id=[id number] macroname=PatientDateOfBirth spantype=macro title=#PatientDate OfBirth>1985</span>
<strong>Today's Provider: & nbsp;</strong><span class=clinicalNoteMacroWysiwyg id=[id number] macroname=MyName spantype=macro title=#MyName>Wiliam Jain [facility]</span>
<strong>Date of Service: </strong><span class=clinicalNoteMacroWysiwyg [...] frequently. She is now talking to her digital strategist abou t partial hysterectomy however she has [...] she can tolerate< /li></ol>
<span style=font-size:12px><span style=font-f amily:Chloride,Helvetica,sans-serif></span></span>
<span class=c linicalNoteSectionVisible id=[id number] internalbreaksection=f alse originalname=Med Onc Advanced Care Planning recognizeconcepts=true&quot ; spantype=section suppressempty=false>Advanced Care Planning</span&gt ;
Not discussed at this visit.
<span class=clinicalNoteSectionVisible&quo t; id=[id number] internalbreaksection=false originalname=&quo t;Pain Plan This Visit recognizeconcepts=true spantype=section suppres sempty=false>Pain Scale on Today's Visit</span>
<span class=&qu ot;clinicalNoteMacroWysiwyg id=[id number] macroname=PatientPainS charo parameters=LookBackDays:0,ValueIfNull:Not recorded on today spantype=ma escrow agent title=#PatientPainScale(LookBackDays:0,ValueIfNull:Not recorded on today's visit)>0</span>
<span class=clinicalNoteSectionVisible id= [id number] internalbreaksection=false originalname=Pain Plan Th is Visit recognizeconcepts=true spantype=section suppressempty=false>Pain Plan on Today's Visit</span>
<span [facility]=clinicalNoteMaP[facility] Servicesysiw id=[id number] macroname=PatientPainCarePlan p arameters=LookBackDays:0,ShowComments:Yes,ValueIfNull:No pain plan indicated for today spantype=macro title=#PatientPainCarePlan(LookBackDays:0,ShowComments:Yes,ValueIfNull:No pain plan indicated for today's visit)>No pain plan indicated for today's vis it</span>
<span [facility] id=[id number] internalbreaksection=false originalname=Smoking Status r ecognizeconcepts=true spantype=section suppressempty=false>Smoking Status</span>
<span [facility]NotAd[facility] HospitaloWysiw id=narendra [id number] macroname=PatientSmokingStatus parameters=ValueIfNull:Not recorded spantype=macro title=#PatientSmokingStatus(ValueIfNull:Not recorde d)>Smoking Tobacco : Never smoker; Smokeless Tobacco : Never used smokeless tobacco; Vaping : Never vaped</span>
<hr><span class=clinicalNoteSectionVisible id=[id number] internalbreaksection=false originalname=Depression recognizeconcepts=true spantype=section suppressempty=false>Depression Screening Tool Status</span>
<span [facility]=clinicalNotMy[facility] id=[id number] macroname=DepressionStatus parameters=ValueIfNull:Not screened on today spantype=macro title=#Dep ressionStatus(ValueIfNull:Not screened on today's visit.)> Screening Date: 09/19/2025;Plan: Patient declined treatment</span>

<span class=clinicalNo teSectionVisible id=[id number] internalbreaksection=false&quot ; originalname=History of Present Illness recognizeconcepts=true spantype=&q uot;section suppressempty=false>History of Present Illness</span>
<span style=font-size:12px><span style=font-family:Chloride,Helvetica,sans-serif><ol> <li>Patient reported that she has been anemic [...] has heavy bleeding. She has consulted with digital strategist in the past, however unable to tolerate [...]
</li> <li>IPMN
</li></ol>
<span style=font- size:12px><span style=font -family:Chloride,Helvetica,sans-serif></span></span>
<span class=&quot ;clinicalNoteSectionVisible id=[id number] internalbreaksection="false originalname=Medications recognizeconcepts=true [...] suppressempty=false& quot;>Family History</span>
{ }

<span style=font-size:12px><span style=font-family:Chloride,Helvetica,sans-serif></span></span>
<span class=clinicalNoteSectionVisible id=[id number] internalbreaksection=false originalname=Social History recogniz econcepts=true spantype=section suppressempty=false>Social Hi story</span>
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

<span style=font-size:12px><span style=font-family:Chloride,Helvetica,sans-serif></span></span><span class=clinicalNoteSectionVisible id=[id number] internalbreaksection=false originalname=Vital Signs and Pain Scale recognizeconcepts=true spantype=section suppressempty=false>Vital Signs</span>
<span class=clinicalNoteMacroWysiwyg id=& quot;[id number] macroname=PatientVitalSigns parameters=LookBack Days:1,ValueIfNull:Not recorded on visit spantype=macro title=#PatientVitalS igns(LookBackDays:1,ValueIfNull:Not recorded on visit)>Blood pressure: 132/76, Pulse: 75, Temperature: 98.6 F, Respirations: 16, O2 sat: 99%, Pain Scale: 0, Height: 66 in, Weight: 179.2 lb, BSA: 1.91, BMI: 28.92 kg/m2</span>
<span class=clinicalNoteMacroWysiwyg id=[id number] macroname=Immunizations spantype=macro" title=#Immunizations>Covid-19 vaccine ([place]) (12/22/2023), Not given other reason; Flu vaccine [...] <td>
</td> <td>
</td> </tr> </tbody></table></span>
<span class="clinicalNoteMacroWysunitypoint [facility] id=[id number] macroname=RecentLabResultsTable parameters=OptionalFlowsheetCategory:Tumor Markers,Label:Tumor Markers spa ntype=macro title=#RecentLabResultsTable(OptionalFlowsheetCategory:Tumor Markers,Label:Tumor Markers)></span>
<span class=clinicalNoteMac[facility]" id=[id number] macroname=RecentLabResultsTable parameters=&qu ot;OptionalFlowsheetCategory:Immunochemistries spantype=macro title=#RecentL abResultsTable(OptionalFlowsheetCategory:Immunochemistries)> & lt;/span>
<span class=clinicalNoteMac[facility] id=[id number] macroname=RecentLabResultsTable parameters=OptionalFlowsheetCategory:A nemiaLabs spantype=macro title=#RecentLabResultsTable(OptionalFlowsheetCateg ory:AnemiaLabs)><table [...]
--- OUTSIDE RECORDS SUMMARY | 2025-09-28 11:51 | XMS_ITS | Clinical Summary ---
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 TYPE 18 Negative Negative 04/27/2024 4:31 PM CDT [facility] OTHER HIGH RISK TYPES Negative Negative 04/27/2024 4:31 PM CDT [facility] Other (Cervical) 04/24/2024 12:13 PM CDT 04/26/2024 10:18 AM CDT Narrative [facility] - 04/27/2024 4:31 PM CDT HPV types 16, 18, 31, 33, 35, 39, 45, 51, 52, 56, 58, 59, 66 and 68 DNA were undetectable or below the pre-set threshold. Methodology: April Gabriel 4800 HPV Test february Everardo FOX MICROBIOLOGY Final Resu lt [facility] [address] [place] [address], [place] from Last 3 Months or Most Recently Relevant to Health Maintenance Insurance [facility] Member Subscriber Plan / Payer (Ef fective 2021-Present) Name:Tiffany Casas Relation to Subscriber:Self Name:Tiffany Casas Payer ID:[id number] (NA) Type:Not on file Address: [address] [place] [id number] Care Teams Transitional Studies Instructor Relationship Specialty Start Date End Date John Avalos MD [address] [place] [address] PCP - General Internal Medicine 06/20/17
--- NOTE | 2025-09-28 11:54 | CRLHL7_ITS ---
For Patients: As a result of the Century Cures Act, medical imaging exams and procedure reports are released immediately into your electronic medical record. You may view this report before your referring provider. If you have questions, please contact your health care provider. INDICATION: Fall, hit right side of forehead while moving a mirror, no loss of consciousness TECHNIQUE: Noncontrast axial CT of the head. Coronal and sagittal reformats. Bone and soft tissue algorithms. COMPARISON: CT head 08/02/2022 FINDINGS: Streak artifact from patient`s earrings as well as patient motion artifact degrade image quality. The ventricles and cortical sulci appear age-appropriate. No midline shift or mass effect. No acute intracranial hemorrhage or extra-axial fluid collection. Joshi-white matter differentiation is grossly maintained. White matter attenuation is within normal limits. Intracranial vessels are unremarkable for technique. Midline structures are unremarkable. The calvarium appears grossly intact. Visualized paranasal sinuses and mastoid air cells are clear. Included orbits are unremarkable. IMPRESSION: 1. Artifact degraded exam, without evidence for skull fracture or acute intracranial hemorrhage. Please note that all CT scans at this facility use dose modulation, iterative reconstruction, and/or weight-based dosing when appropriate to reduce radiation dose to as low as reasonably achievable. Dictated by Marisol Terrazas MD @ 09/28/2025 12:23:36 PM (Electronically Signed)
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
--- OUTSIDE RECORDS SUMMARY | 2025-09-28 12:25 | XMS_ITS ---
Author Name Interface, [id number] lity Address [address] [place] [address] [address] [place] [address] [facility] Address [facility] [address] [place] [address] Support Name Relationship Address Phone TIGIST [employer] Friend Unknown Unavailable Allergies and Adverse Reactions Plan Reason for Visit Encounters Medications Problems Vital Signs Notes Section
--- OUTSIDE RECORDS SUMMARY | 2025-09-28 12:26 | XMS_ITS | CCD ---
Author Name Interface, [id number] lity Address [address] [facility] [address] [address] Organization [facility] Address [address] [facility] [address] [address] Care Team Providers Care Social And Human Services Assistant Name Role Phone Wiliam Moore Unavailable Unavailable [...] Group Identifier Payer Identifier 2023 Active Other [id number] 519 2023 Inactive Other 519 Diagnostic Results Date Type Test Units Lower Limit Upper Limit Result Flag Comments Status Ordered By Specimen Source Lab Address 09/12 CBC w/ auto diff Scott # (ANC) K/uL 1.6 6.6 5.8 FINAL Wiliam Jain [place] [facility] [place] [facility] , [address] [place] [id number] 0 09/12 CBC w/ auto diff IG % % 0.0 0.5 0.2 FINAL Wiliam Xavier [place] [facility] [place] [facility] , [address] [place] [id number] 0 09/12 CBC w/ auto diff MO # K/uL 0.2 1.3 0.7 FINAL Wiliam Xavier [place] [facility] [place] [facility] , [address] [place] [id number] 0 09/12 CBC w/ auto diff MCV fL 80.0 104.0 88.7 FINAL Wiliam Xavier [place] [facility] [place] [facility] , [address] [place] [id number] 0 09/12 CBC w/ auto diff IG # K/uL 0.0 0.03 0.02 FINAL Wiliam Xavier [place] [facility] [place] [facility] , [address] [place] [id number] 0 09/12 CBC w/ auto diff MO % % 6.0 15.0 7.8 FINAL Wiliam Xavier [place] [facility] [place] [facility] , [address] [place] [id number] 0 09/12 CBC w/ auto diff EO # K/uL 0.0 0.6 0.1 FINAL Wiliam Xavier [place] [facility] [place] [facility] , [address] [place] [id number] 0 09/12 CBC w/ auto diff EO % % 0.0 7.0 0.9 FINAL Wiliam Park [place] [facility] [place] [facility] , [address] [place] [id number] 0 09/12 CBC w/ auto diff RBC M/uL 3.9 5.1 4.78 FINAL Wiliam Park [place] [facility] [place] [facility] , [address] [place] [id number] 0 09/12 CBC w/ auto diff MPV fL 9.5 13.4 8.5 Low FINAL Wiliam Park [place] [facility] [place] [facility] , [address] [place] [id number] 0 09/12 CBC w/ auto diff WBC K/uL 3.0 8.9 8.6 FINAL Wiliam Park [place] [facility] [place] [facility] , [address] [place] [id number] 0 09/12 CBC w/ auto diff PLT K/uL 113.0 364.0 289 FINAL Wiliam Park [place] [facility] [place] [facility] , [address] [place] [id number] 0 09/12 CBC w/ auto diff BA % % 0.0 2.0 0.5 FINAL Wiliam Park [place] [facility] [place] [facility] , [address] [place] [id number] 0 09/12 CBC w/ auto diff BA # K/uL 0.0 0.2 0.0 FINAL Wiliam Park [place] [facility] [place] [facility] , [address] [place] [id number] 0 09/12 CBC w/ auto diff HGB g/dL 11.3 15.2 13.7 FINAL Wiliam Park [place] [facility] [place] [facility] , [address] [place] [id number] 0 09/12 CBC w/ auto diff RDW % 11.4 16.1 13.20 FINAL Wiliam Park [place] [facility] [place] [facility] , [address] [place] [id number] 0 09/12 CBC w/ auto diff LY % % 14.0 41.0 22.5 FINAL Wiliam Park [place] [facility] [place] [facility] , [address] [place] [id number] 0 09/12 CBC w/ auto diff LY # K/uL 0.4 3.6 1.9 FINAL Wiliam Xavier [place] [facility] [place] [facility] , [address] [place] [id number] 0 09/12 CBC w/ auto diff MCH pg 26.0 35.0 28.7 FINAL Wiliam Xavier [place] [facility] [place] [facility] , [address] [place] [id number] 0 09/12 CBC w/ auto diff MCHC g/dL 30.0 35.0 32.3 FINAL Wiliam Park [place] [facility] [place] [facility] , [address] [place] [id number] 0 09/12 CBC w/ auto diff NRBC % #/100W BC 0.0 0.2 0.0 FINAL Wiliam Park [place] [facility] [place] [facility] , [address] [place] [id number] 0 09/12 CBC w/ auto diff HCT % 35.0 48.0 42.4 FINAL Wiliam Gaona [facility] , [address] [facility] [id number] 0 09/12 CBC w/ auto diff Scott % % 43.0 74.0 68.1 FINAL Wiliam Park [facility] , [address] [facility] [id number] 0 09/12 CMP Alkal ine phosp hatas e U/L 36.0 125.0 54 FINAL Wiliam Jain * [facility] , [address] [facility] [id number] 0 09/12 CMP ALT/S GPT U/L 0.0 34.0 17 FINAL Wiliam Jain * [facility] , [address] [facility] [id number] 0 09/12 CMP Calci um mg/dL 8.4 10.2 9.2 FINAL Wiliam Jain * [facility] , [address] [facility] [id number] 0 09/12 CMP GFR estim ate ml/min /1.73m ^2 112.0 GFR is calculate d using the CKD-EPI equation. FINAL Wiliam Jain * [facility] , [address] [facility] [id number] 0 09/12 CMP CO2 mmol/L 22.0 30.0 [...] hour stability window. FINAL Wiliam Park * [facility] , [address] [facility] [id number] 0 09/12 CMP Gluco se mg/dL 74.0 100.0 72 Low FINAL Wiliam Park * [facility] , [address] [facility] [id number] 0 09/12 CMP Chlor kristi mmol/L 96.0 107.0 107 FINAL Wiliam Park * [facility] , [address] [facility] [id number] 0 09/12 CMP Total prote in g/dL 6.3 8.2 7.1 FINAL Wiliam Park * [facility] , [address] [facility] [id number] 0 09/12 CMP BUN mg/dL 7.0 17.0 10.0 FINAL Wiliam Park * [facility] , [address] [facility] [id number] 0 09/12 CMP Creat inine mg/dL 0.66 1.25 0.70 FINAL Wiliam Park * [facility] , [address] [facility] [id number] 0 09/12 CMP AST/S GOT U/L 14.0 36.0 27 FINAL Wiliam Park * [facility] , [address] [facility] [id number] 0 09/12 CMP Album in g/dL 3.5 5.0 4.4 FINAL Wiliam Park * [facility] , [address] [facility] [id number] 0 09/12 CMP Bilir ubin, total mg/dL 0.2 1.3 0.3 FINAL Wiliam Park * [facility] , [address] [facility] [id number] 0 09/12 CMP Sodiu m mmol/L 137.0 145.0 140 FINAL Wiliam Park * [facility] , [address] [facility] [id number] 0 09/12 CMP Potas sium mmol/L 3.5 5.1 3.8 FINAL Wiliam Park * [facility] , [address] [id number] 0 09/12 Iron profi le Iron, % satur ation % 20.0 55.0 18 Low FINAL Wiliam Park * [facility] , [address] [id number] 0 09/12 Iron profi le Iron ug/dL 37.0 170.0 63 FINAL Wiliam Park * [facility] , [address] [id number] 0 09/12 Iron profi le TIBC ug/dL 265.0 497.0 353 FINAL Wiliam Park * [facility] , [address] [id number] 0 09/12 Iron profi le Unbou nd iron capac ity ug/dL 75.0 410.0 290 FINAL Wiliam Park * [facility] , [address] [id number] 0 09/12 Eleno tin panel Eleno tin ng/mL 6.24 264.0 10.70 FINAL Wiliam Park * [facility] , [address] [id number] 0 10/09 [facility] other lab See senior research analyst d Medications Administered Date Name Route Dose [...] Temperature 97.90 07/05/2025 Pain Scale 0.00 09/19/2025 Body Temperature 98.60 09/19/2025 Heart Beat 75.00 09/19/2025 Respiratory Rate 16.00 09/19/2025 Oxygen Saturation 99.00 09/19/2025 BSA 1.91 09/19/2025 Pain Scale 0.00 09/19/2025 Weight 179.20 09/19/2025 Height 66.00 09/19/2025 BMI 28.92 09/19/2025 Intravascular Systolic 132 09/19/2025 Intravascular Diastolic 76 Notes Section * Med Onc Follow-up Note <html><head></head><body><div style=text-align:center><span class=clinicalNoteMacroWysiwyg id=[id number] macroname=&quo t;PracticeLetterhead spantype=macro title=#PracticeLetterhead><img src=data:image/png;base64,cWZCDa6NJruLPEOWEUwOXwGQFIDUKRHYLVWRIUFhLeT5UZMRTROQT 7OOry0j4YVDV KPnVU1EFRLdvcc7ZBXJSESGgKjDhiXUBvRYQM0qPHdcE8LJCXfMTHBRSQmk9F2OaCTE1zmCxNhi5HMot DpOV4YbMFeiM2agPqIOa eXkDuZr2E9UhvTQ5mdCx1IRjfcV0TDvRrNVuyxhJZ1C/yO2WjiUs4fubVL20KheSkOpZ57AT6dT081eo 8Nb7ICgl/MfHg1NDrCVy PLguMXa4vFGZfchpeOyvAsQQt5ZHUo3iO9DLKKtluOEN/2wZWpjDrRi3rzBdGl26wzCYG6L/Y21FqYqd uNXkFomh0d+un9Cnb9qf bj2FiWd8umk8cV8brRMr8VqjlOSDx9uD7W2HAbgQUT18pLr/pFfJ3lJgoVOB63OOJ1TL9JaK4HxeYzwD GIAAvV48nShJF8lcIOq0 k8Kb/n/ngFNksb3FkFGwluuqpRxlMEAx2sE+oQDIghTwyr9m698yyi6YO1NZGEH2qWGdTS8ET8hzTIr0 k+H2xVvSMfk29Dx7/TRN 11HDn34Th0xABe8HHkGQxaIDu6l6rwYLnkkhAPj8p9eZUdw6mCWf+x4uGwyhcFHHeyEdvqGBqC3AzJJm m67aGcgCmNnG0YzzI3F1 ubaldhZSyE6oSw+lE+/NLCpuFVM6j7KjKW26d4BD2K+TZDRe2jIkBvAAridBKXWoRUM7Cb6hzssINfSf Qh5rqWMz0bo3/ts4jf1Z naWSPG8eKrPSnwhfjkqw+7fUSjfTJvOeuEFccdnCwx3Q4d+0wsz2Pne1rO1ONad3XRw1hwvUb9C4dzfU aWlpRIMIkds/Mg6w4GeY TU7XPeo5hRRkyDIvEAh5VLiIs958Qnk5VYs882/B7JSbKca+HnatTS1niGFa5v+nubzCVTJ6ctrNy3E2 Cu9HtZ1L+hFi3x2FtMHP 35bFemlNrPlWp1fVUhd4NZk5ayjt/V7DJzFBn+VAcKBzjRHb4HWPcXefRdRlUrOVn0LmjUIZq2XrTl9b OHCRTVBHMIWHgkJiea++ +13BWXq9ld6ZhedbgxAZQPFWkQX/F7WJ6ovEOHyjCxuPG7LtqsaVl8DD++c7SanZG42eJYNE9DepZMpa zPCp04uO8020S7d6gNyU 5613kyxycWN3AthLy4j9uJJW6yM5ww4wZGPfHb/PX0ULjuKOIxIW6+Us+9ndTPEb1lyKAkzmyLr0kP/4 9vfqnHgxWG5zO605Ze/M 3AOM5wFrumtoOM0O2vnGWK7zEMw14fu0Qg/mbtZq8vShYg320zF5KyY3eXJSuMOCKWmilz3gLBQwNg/E W5MsdwWPq15lLcqE6xKQ RyVayk8rwCOI4iWHMdyj80dPfArFUBuGTAoyPFSuaEQk405fEDv4+3ypmF8cchCfTov/L7/p+TChQsXL b2UETEmwdVhcg7pxC6/w hNDXi0jQW1eWfQl+edNfd3NBtuEJC4d1ZzNGyGAdR8pkvH/+9+hGyE34XJP9fXhu13Dc2eZDEqNkvZZM Ipd4uWSE8BagVtrGmIFS XRsdO/ew+Tk5JR/3uOVKt8eFjHvGaEhkl7jUhNayM6ay+WXNHPR+XVtpn/uueeazTEEBEKJ+MuYsWPLj 4KIRCq9xrhlnBSUKS7Nj HDhwoWLPwazsSrWrVtXzqKjY+DYkZX8Rpy7+ZKxcT3VFItjr41eFUVjxe+1q0qPsxzP/LZCKujXbzxmx GVzZUf7snaBzt338lifw 6/2TbxT89Ati40bhfW1Br/8cUeAMH/ErQoIMuhIXwJML5aSgAHLLjyEfAbnV/C9efqL1gYycp+FL9259 q8gwWQwVbhwu+4vfHps6 kwllqNsc4vtWq4Onb40w+p1cbnIYLhOeb7cN4qYxeMorXD76e+u1X4qv8bnhv850TgSWcldNJi+/DFZu 09oiBLINrsUwanhhheY4 ePNSo/dxNCSHz1d1T0wUWAuHeybdWAMOH1QeSsrj5+LDk7UHT/678Jgd7RpFc7cScehxE7XAKIxpesbB 3WK71hd1ywVYEdNGHDrN Ti5obFssZdX0xJ9U5sTyfA7I4+QkRn6VxknegaEHG1GnuKpVrmCRnlOsbJLmXHKAPWJnr73mwXAF+WAA w+DcSclpk6h/e0i6mYUV roCxIULFy7+JPy55RDKUHzbYVX9+WEvuAdFtBuxcpifTfXgYMq4lffXQfs9/xUg57fjwxlSK00KhK5cz aysLDNt+oydrq+Mikp95 whgloDjs4DRBqaGEPfg4imZvsRs84h01ZBo71ezTqCz8dfeluBsh/OrGcM4H02/blELr0N5MK/gwoULF y7+MSwwn906B1dDHl362 DumlaniStJi29nF6ZMVGXfX6z+A+PYnH9KmSKGtjKdT4DdD/K1hddf45xZo3mR9/ThUymxMyHEOYA2a7 OSuQQPg51E92ov8c5rpN JvMzIBuYMnf6W5JulPZYoDCdUUA05HMuWlemdSrXnoNnYoeBJBPAolIJcecDQgEbVBa+oUX/4UADuRg4 UPAK4b4+Dpc81acRVFVf SzxmFu2rtyLKYyptZf8ARkqIXuOcOl+qzhnd+mJEc/aGVqX/uNJ6kX4kQ9S3kH6USuZ0an6ZFJa4pC8r od7V6VNc0zIkonmO1MoV bWPRJzpVDd4YGmGUF8YCeZ0K9pjUPmDPpfDs/WdlA4u/6g2NjbZpVWtc4BTQ6px53cWz26IERkIsYBA/ CTbbDx72BiOOxFk820zw jm6vXJpkhuo6d2UBl0dcUhROcW/KF6mkcNXvWtZ8gyH2MC14u6EzAOecMHn8/6EgPuxZ1bXxa6nM+xy3 xcJz4pIIUQUb1VUOXnp9 SSAlT9oHYhyC3lmyaX+YbFGmnqhnaKYaiM21uq0tsDSjc7z4VEJA+6fSqxoTT+arQAtIsdMReO6SwJC5 D3vlnDpswvlnP2QGchhc I9XWQLhq/lUT4esLc2jhG6UN3shTKULPLwEx37Ddi54A/W3CkODhkdmG8Ldb0tPLyZn6LyDzr7J9BjmB xvLo+h1JRGwmAcyl/ULl SzvO83jDKYgx1HG0tc/bg1o6KHlVa+mhMFhJIVxGwIgjTYPWWUxN791W9GZyMz5uPxnPLccHYSkN93/1 Zz2r/1aMcyTXb7+sdlS7 N+BLv2Gs1cB4cy4jYdWiuf1sb8R5lFwgydf+073Yh1hLsNbkUz4I6FJxs01v95f4E6ysK2JgM6KthzLx hoQSjNcm9Vz7w3NLSqe3 W6MfJAugL0TrSneeiRYA9Zbr73g8LheVXZRbzXdYixcmwQBOvbDq27Pe4Ac2wpBoabdm+UGzemU3srzL 2tW/vtVQb6RyFodLZ2MI U04ltZjauy1dgqn/21ocmvmFyinuYm5o45bqE7VL2Dmm++jnvfKC+TaJyBO1ylLU+Amelia++D9GruFQyQq ZcWVip7bVMYIbGB2Jb6h hVpKc6hKymbsyiG2cyQA/7fhYvaAvEM+vqNAvqZIWa4u6mJxOwo9OTtX89oATlvojs/VHiT0vwgxiZo6 NZgV8dGKr5PFHPd0xlh2 lDp9i6l7vcl3Z/e1KL7CYLc1kLqvRqM/jpizc5VXsQADhi8PQyThWZPFQLZsQeo170+91Ejb1j42HOcd a5JFeeXdtfP2rrIuP2KA yYySZVSG3xPUsE4iWendFBA3sceitDMKKgwWlv0602YOek26lRBV37/bhF5RODVTP2F+iiHKrnbJriw4 TBVdvM7+7sFD7x6It6YV CzVsYyAKQt2w9Kqa07Dp8Tq4AXSiyers/qaSx0uyp2P+1z+b/e9teSkT9cM2393VRhj8GkpvF9IJLTAt 5t67lu4oL0NwLFYI8LG/ /cErICW7+1jm9zpFM/bqZCng1fdNcU81p9RQKxQJkzzqUZ6fuUDRlnaf6k/sw2ws+kgN3OJAb+jAt8zq cUrIwcRZyeZ7A8OEp/py z6qF7FNCVAGd4ms/F664YDLQqv2TeBpTpbcbG6qS132Fyy8CpjqOveRZw0/r+WXjoijsiu1iZDijQP5Z KYeSvjuOW+OEuWijrYoV Tiwmg3YxvJcQdkCwcmMVzRnRz8JipnBqIB/OI7KGIwEFIUxbkUQpH5u+ygurBXH+4CBCRp5BlWOqbRnx 8fXF5dE4OZZo0DsTWzTh k/jPHQ518BWnymFQL0H7uIoRuBtXZMfOc7J4uzTgW6ZsFHmd4XP/ZK+d9bvBpJ1GytlOt53v8uft1W2Y vUAFo1d1/EuwJIlX29/K JNqqB8p/d2N6od7jluBxwR42g0HqyOwJCwg0Fo1NdbGI3Rm6Cw1U4Qp8DCM+Z3DQTspt60tpkDdn9KrZ qXXv2/VlMV3EX6qICQ/G /HY/+ykDh2koMg6YBulbbmrX4glF9DPp/rBIUcrYLp9KPRtiq0Vk+997p1RTWjhR0O/Lp84ldPl7FyeQ JlYCUly+xQtZnb5X7nqk LsOyUNOAn8rVMUFu9iGTRJ3tMtJqLDzMWVVVClhOjREUEW4UQpZxIcoUTTJVf9AllT7OhozrqJWeridg RSSyCEgjJiQSafjXgRcs TXrBESfxjHKu9fgDm1uNpG/pwY2UhgVxqfEHZhG/O+h0FuA8Pu4RIRCqnxkitmuhdfholXmzOx4Mr0Ce pq1ZxPBr5b83Ehy4aduR CGIA4QMnqCBwwkwBVIhtD7TRxwWf2Lrvhme/C7k3XsuS2NQNKcMpBkCYoDfbpGEAfgUoKp9UM9kAEP3E YB0jmn0+Ju/ASW2WbXkf Z3HtpQPSYhKVEE7Eakrcrqy8169C6CyEOjip+F+j52siTHBTgYhDWCQ9szaCz2OcRYupLeMTAihDkzHn 2v8xQWINoA4xrVbDtqXQ OWbuFZPHqs82D/4asjSY6moajgb0GcXyVAVUVPHLLHaS02TjfpgFHxmWQcwYVsotxhiPJ6IY+MdZQHFM Squfj5y3o22S+qg5fam0 bzjlpXhcK8MH791ub9SCO3kc1esK91e5vhU6qA3CuqREOgLtC+aX/MD7usnn6KtrmQQbjnoUK5mzKpE1 39o7rr/YZOUnGwe/mCRG bV8/K000iXV8dDutEVuhfPUhRn2YZoBq3iLxlBwHSFMzTxfBV5bfV1pADzqMxBUrrtgEJV61JHNzJl7q q6HABBTlfvrW/oYFYcrO ckCCCbeIxY+LDNpkyCICodUdUTWaSWjNRBwBnq3SeldIZT0FRErR3PWGJFb8n1tBh7UqeGRgdkTx9YhF SJTFnOFCFlX9PrArQP7F BqCtOHKBsHN30GH7Wm+z54DoU+17TjpuzNiBZ0VdEiSy02KPUxNre3fbwykbprA2IGeQpQ5WqPGs9Dnm 7UfSsWvSgiiWOiutFkJJ JBKBsuTZXPEBDHpRz6LbeAkr1UuHLkWReIgKXJgYp95ECPrXILH9+D2ph/BB6hwQx2jZDvpaDzjVv5gq 7cGFVeqsdc51TGYY0wS0 cnWAWXh4w/db4Ic0SBTdza+g88w9u7cJ/e5RF4Y/Qtjd4m3JMsqWwYTnLj9FdUrEjVI4FJb+VLlxmvy5 IduoaEgkpmY9Uwiw+PO6 b5XvCuL87tlvCpIe4Iy9JXsOQM3iwiWsPKVG16jhbLR6jvNgoZuBx/jAQA9RYmqoubZSUNHj4BFv1jSL sQNZviFO28WHQDnDyPT7 lFixvpVSOH777DjgsQ7DnjcQdM+nWuSFhd26xABx7vvDhed6YQ1lcRrf45KEAY9fsiCKbSqIz6h+f9wO PyBoL5XOQljsNNG9V7I5 gnYKdpcJoAmeJf7rf5J3J0W7faGU9HChopQWSqIi7EZnR2k/IGO46ec0qvGXTnNOcmu+P4O2zzLxwN4O zA0OSEQVtwhJsS3Z7bqq vvPHaDuHRZNFelokJP6nNOHRxT/xFKqUtS0WnTlIicTXu1csej+kNewlfv4YL+nLMfrLrRaBP1K6U3sQ GBQ+z9UHB4lUZySipbuY eF4KfBolPCcIGUbsBhY643rTe/0Tmd4oip09b52xxr2yXxVPjCAFlFGGvrkQcS2SpsVtMqv/juGDgp1T Vcp2OYaDsdNkNALlYDFG mXhBYySpsMMLyxiCHB3Z3MwwH5gWZt+GT0J10wXJYO7MlDCuP3W+XMtzVvTcaTRKWEhDDt7ZEwI+2Bdx DUrAKAbHT3EhyJ7CfBHi Q2lxsaPfjHFlpfjA7YBukBcbvb/aOfWtjTBmlSL97dEYw5oC7MiY5yPZGXXFDCXWmPQxdcZpKQrsFEli fNwzYKzWCvOD81VU4IVK SQDdmwJiY8wTTZ/pXj9/sZntYWCnPaSomEqWzA5NYpRTou3bPLFbiC53/I6aPMqrD9BV1UAt4JZZmC+a Slu0MxqcAmuhHWRpziri toLSeGOChsWTLSVhtyhJciAW4xIKhsYK1wBpAq9LqQDMLaA9zFhy3T3coJfx627TVtEscb7Y4okzpI3v 8JH/gm0JRpVKxZazV28Q 6GxkxWiV/zY2SoTyEk0CAF6Lq7xAN5CBrQzLiVKOjH/3W8Y4OaEZZ0JOXBTNPdSVh6mPPPaOoqtD2nRH sFO7gyDY0LzSWnBGDD9B iDFBSQgxpJvrlXwQjPZuNu9SD5I0htopXcxDQ7JZtYdLokP2rYhjIyqmTj/lBAeWIjcF+PPn4QcwtfLS 9gnrTuAlLtp8E2WC6dFH ijpZKzbFI7KSAt6+pOgxQb2KhvUY3tC2uyQXbvT0acYr6GkuCidg+4RfbgtbcQrBcBE1FsAnE2r00Dik MO1GKSlJZYaxhgFfKVzN e9wLHv+59sRXTPTVigR4AmkcLf/KqPZG1RPXelN3DGPqnEgM7FnU7BEEaOe5OvORAtrgDKLEoT2A4vCG EVFKTLgmjJpfUBHSc+uI +7Eb11Aih7gRpqHQffxF2QoNYgbmcOY2eEcm7dHgackID/vCrS7IRJ5nhNVgXrL9aoGgCdkU5+WhymIc EcrOMByAt9tESxnxh2QE 4mxaSiDjHLVK7jBAIPZtxWB1oF7hI/AyMjLW4WtHEOJ0e9sZI89XxBIqFbA0DuvIwsR3ONiFA5rVnbvN AMJdw/RFpVZwYBzcD/h3 uItL2srec9ha9F7MfuWRcj/iJ7tgfQT9hyKKjz6msXWFsdrrdRoo5O27c3FWNkOXcuE4IYaBfwjR6HAN NxFpIHtGqKM4cnmnTxt1 RyFcbkQX3uEJUBA4GutJ86p3XxTvbIsUPSS7gWshJEVgDlN3GsMZHrMkpiwDRszw9R8/GodaMvsBSotK YUv3R9poPmKgOaRG19VG LmNeamtE1qFfXHoPdwljnr4KROxvo3rTlV7pa5nWysHkqxN2ojNfKoWrJ8QWH5O6cIxMbwYKSp5ChVIQ fZDcFPSWKSMWetA9bqlZ zALxkgqV9yJTL5XQvOT+7GAn2dI5GlqSReZ4AJQ4W12NfnGlcwredjwlYzFtEAktNsMXuDkDnhKzvKW9 KM+agpYQOGMHp/77gA/c By28M5STxlF5Py3BupG6Gcgl1RVCIqtA+sSqcocJUn0rWti3jOSkLGs7Gs/ej8dmI6ntYUZ9QpWlXZIO GjtmpP9cX+VA72jYcJyb KpunzwazKkKZBTZ2AuIM6gPugoZ2cb2Xt4OhKtlGlgw5J6oQ6pD2nGvdNnAfnv3zlybfXCq369q/Zsy9 +irz1byeuTYRm842oyDn 2IUnLVyj158jLlZY0x/TzOZ/isg6cYl+rQ5JvPd12Mk3iK5mUnaI0Dk2+9T7ftnyU7Jq2Aas0iPfN40w vyrAgYNLhkGMJYRAzgaw 70XUMKI0/h/sqRNKByNpkmjGYULPqMYIMPlCsCKMHW9kMrUdpHsTZL0gZX56kPuY7KmjoSxAQotHlAaR cDABOXFVmGnCJ73WEzm2 W4EVcMbojmEtWzhdRwj7ZP1c67Hyp0GqcWHGB+uwCA941jykT5Bkx5xv+g6wF08UiumWB8327IcKGcAc mEQsbm1h7VOBhicCIq8U qejz7YJsXsz13wJoGuK8AsuXR0VnPZCy4wHe/Ka2ojUNt/xQ3Qg5keHha5S5fROuiyX4jvFHSt1YSfYa Jb8/OO2jDuRekwAvd4sI hOTpMfA6+TpvxXb64eD0rDE3wDPqc6dK51uO6cW6UWN6J3fNsz5uEQgyxSQL7ZvDD94gAoBJXaxkXf9v 1N8s8ZMTDjmkYQ5OkwjD mKE3136YfZHoMGwU0mIDA4alZCilkWrwKa5R8yKoAgqhq6P45KSBTTtDx9BKTaXnD3TRlFrdmpIdfSQd sj3nylFvAYun43CMyeVR LXqAneGA+n78RffRbiMqTtYrLxakdc+oCqxa8JmOnHLW81E/InJcwmAJeoB0zRvBtSYvMYO3SB11NOIj QEHHLcewW1hdKLLSDwDm CSL6TFNVOFkitIFLSpHoe621RCaYGXVLTJgf/7+ZFk+xMEFXp1eZEWTW8+UQ04+L9mabVbmzGhnfvY4l U/YLqwVSxfbgfTwgHttU S85ecBq1Ktl2QCCgQs8/1mCa4E1sCj48kjPuAk57qnmWeTKkjl93m63g8y0AiELspHZxXynHoGcgJ3Sy OfvKThQZfNnA6SLYOPuU AjQvdwJYlIKRvgxXOPfEfvBKlFcnnLPR9IsES9ANQugaYFAJtn9dm9q5FfHRoR0vuBrtFOWCK9rrlWIm DeZTdGPbddxsKfzs4cip npBBTNfElCtxdhGrNhCWk48O4S17i9fEzJuqEu2VLdXc8LKHogLxXdcLhqjGF1Jcax+YdedNoWp4z45B E90dZO3EcIT1NOqkMPS2 hm6NEkcBjZJXnLeR1BxTWBqoVGSzgOZ7YHW7vfOBLya6kJNHg1nEBdf68kcLin0K4bfjuE4SxKYAqBRH snfskkOO/7hHspvfXEX7 AwK0t7dbGlnnGfgeUQrD7ftquxLGcY2RCmIdzpxRKhssjIlHMgiSeOnTVZMHUFQF+Xg08+NVCKiJ6OTC j6fX2Y/do98/SXs7lMKK OZ4jEkjU6a5P6dnH1zAkC0+A6ZmWewXVTRPGq63ZZWXo7UqbH4HHywupO1OzuOFqO1xdNZyG7fcFqi37 LEC+BibmeEPh93iei38B I62JEfpRlCtdzG5xBFsD0otzjqE6AW8B2lMzwGQSMxena5zPCBSSCsA0O7HVAlnSXIq8jQosZDrCMTrr fO8pYlCs+XhvAD2uFiRb kbN0VTPRsqPCOBu0YuDZGCdKUeEFFLxmJCrox3Yxf/KigEZkJNj9NCKJ2O6DCEA9tUF6VFcpRQBk1H6H ZQNV9vzxhNTRD9lpGheQ c0Aggby7oj5w1l9q9feb6zGtl2Kil+fRa4cc1CWga0XRa5Gb8XgyRnb2ikBSOzOo2U/Ft4T22Fk1d7Y4 nbzT9vSvOzFKrjv9zqiT THimD5KpeC/q4zfhznf9f97dJk2hL8prTJSyzeeKsJHmhxGMGnNITMA3uQ1MAvyLmp3lJaRerOWoaC5b NDsV5YoQ01Zv6CHu6bPX WslMaLHkXe9oDi9ApON4YXuP4SPlBKaao7zjQeYqZUNrn6MtaJjPVkNYRQvtTOTXXbR2qn9DDBE1rNiv mpNnObnwFtvo8gx2aY73 Fh5+miRjtsAJr+9FALVfAyUCPkoU9TSUGn2XnG5NR1LG1fHD6alSsbtbEqzSqGwgyIyGbEQn7Yf1vuhT OZbQXdwh8ATYSCKSAGlK wqci1hbwMC+BJ7zDL3b9JfskE3Cq/kcWHUSwztOBRsjvPY81sk6kNXEfdM0JtSWf2oFJ8ZscvONdvWzM WVRJ8ETI5jIqXxjFFTuj 1NpD6tuVksm5890/2Qy8sV6o2IP5R4bHUrWOyoLtGMl9Pb4SV9EXf1eqpQJ/pfIss8/UaavVkMNUSAYk HR53G8PDcrlV/qGeHVSk 1tcsxsBriYS8eyZtH4B/u/O62TF/I/oMPhX+ww2mk5OxmM3GKkOcMP6ygXNzbUYwTauDBJMuBL5+fEGh bVAO8PSyjgdkw9BF3P1y BGLhUdGejSISPvN3qr3ZYhvzFkbKGy0ezoSxX4LMoVjVXVUWkE5S6OrlNjcPEBHCAndJ51QThzEYG9Y6 uygfd7kR/yhXfTUBg0Uz YO2mJvkG5a3XIrgPv1LdM6SBC1Se+WcFjM0fONZDPXixNQHzJBjdG+beMWu8x7+CDBx1rkeqZlfj2li0 chGNHI0MeEjvYRKw6VTB Gw5rmzA0NTs/YRiEeKUiG2Pu0W8a3HvQO0JucHAe0hEPq3ONgul/g134gZfaQNFbR1Q5l/xQ/kVxTJ4l 8oB96S/6z8fJMS1FnI6C ogvzhP80KGwBJ9CkczHVSiumMR5WUW7qLpBurfTETS5RaxwobeOM9nMlrIMm4CsmMRu5SEWTbcyIm6u/ iCJkTnHjDzeskZi06R8C Y5dvoCbCdzvSiFI/9z9Q+BF342Wt+9tIB3a+yMc23bh1XhJgP0p6d4pXrzH5tXdINp51I9jUrDiCeTW1 KtulkhVQCobbhvHDGYQ0 mhIt/YoLsr8yrPAADNiZc0ZKZBQZyRNCCVTqVxqkkKRWLxPIqMpGROfHAueQfeVawVkpPPQLUEimb7SP F8K32zqAhXoVrQtcR7Zg IKRW2AxfXXJkSqVodW9Yh6WshhcptUJOq1lqM4UE7gaKR1OoTB1I1rAjfRFePZvOahfgAkzf+CB08GZP ClJZqCeJmLZm44XcU9GR WGZN0yREL/sqiB5QJ7K4h84gZZNDyIrdaFKQpHxXXftIa2Qq0ZZSop1E/CWT5A8pj4G2yOb9vQNpWHuI GURNEjRReQQUuosbTY1H +4V1LEpAreWSEsdkgHQgu7cpNPdVgyjzdT5j4jdl4J+BP3O4vUPdl9FgfZpQqXZvhvbN6GgeQBCo1Q8H n8Iw6YhjGwgNjnD44zvW rq827cqYR+e72QGk5ISIGybU+LJD3Kq28dUFuiZzfONDM1AomB9Wi+V1hyvGLf6TvchbmPBF8X6Qa6Y/ 7jdbRenf0xDjgo3jMSN4 sPBAWrclHXuCu8BDcAq7Dg2Zj2T69F2gzT1OG+jXYkrOkKO+2ZnuHYfXrNJ4VmxjZ0tQhQTn/Ap2pS+w L9GsifcUXL8A9X3CoUf4 0ddcrkse/m0Mcdusa2LF3uHO5FZWz6dJuyXTd0CZgM8sMFTL+2poYulGu1pRjDrYHWqkkSHKkRGUuozm 1HhMeqBe+TVkU/J0Dsay Z23rJf/DKonr7+fLSe+RSMoWtCifROan4cMxA/L5l9/mlHgP0hd9y10fPIuLBdIl8V9NxpsXbzNropIe yKlxzImPoNCQhX6USVQh 9q9dqJYhjfJnxxCwzCLSHCnKXz2stGhG8CxCKsqfRhyS64FOoQGoJ10Yf1oMcNjwm6GjWzdKF5zlCTAx 0r2JEJbzHpNxZN/g8LR0 mlHkCGPZVy5710xYio6BWBik415BRjnQfCwMVkFiDfQQwBRWpEhEQEXobBtBBnz9AMUEaEZTWkaUWD6q mxXOGEovv3j3Ro7gZMAD qKdlK8xRyHkIY30yc+9P3o7qYSmUYMG4HXtoRiv+y26uT5Mv98mJwPhv89CDe3ZvDVmX/KRWa1H6NGd7 HKfRQPRhSczbyxC3TA1T lwM4TrB1w99otcD+pw8VaSh0HlTEF3W37V/mFS8CMPfRhNDBJq8Uihc3EfwA8ozqbZiin5y5xofb/NO9 nbskaBFeNHtKwrous0R6 5Pfpk+Ajc6OpGJnVNrXnPPOo/qb6mGghaEsckSw59BifuPN+YQZlDv6c6aHH8eEmo4xXtHHVRLpqyc/P gzViIIofyyw5RGm5sTlt cbBTBEfwRC0sI/5F4rm38gOzr6gY/xRxqGcpytp2l8RwnEgqBGt5Kuz4q1FafypGYMWXg2xpHIvqaZWC 4B8tE+0Ds4TAj1CGt7co PTXH+A6wSNz1JbzBDoz/gG/X/LasnnnsqoTD3Gm2H/egIiaQlMkiE3AfdvxXvt2N5BIyXeA+B3DxTWzv 0udinxH03Ewpo3WYt4oA X6hEbYTp8iZfSuocq5MXn1Q+r25PjNfd2xu6y8MBGezBmKfh+T9y+xVC/B5x/MukjEcklQUEKC2gc5u3 X7/6HDoqJAAUdnBX/uzD E5slKRsg23HhlnrIlasmt5Vs3xtdvCH9yxOinDmSF8noSE44fO1voMjHLMFWlvW7zu3c4bv5qliTnRyL ZX6Rilwp6y62b3xH+SXH 8oo26h0id8zXDCmK1HkMyJ3/t7ilthCUeyFiqlUAMIM6draC/tj049Mpk/hNLVupAXfvoOlUB3ENJ9ut J2IwJQCGPPFxnmxQvtk2 kMY2mtzOPKg0k7G5U1y0p6hBC/lCvGt/VXyV6+UlMCnd4NdQ82iEZK0OnUSgBb+GCZGBYVPioqSpbikV WNxHXP5v/VM0OPRWUPZC 1yg96CqoyPw1/XRsvqd1+CuB8CHgOl7lpjrNTHBGHovOZtxw9J4JtNGOavsvfuZZ7UWsgCzhBO8sN4eR WoJFJZT+Sbd9D6nYWmHw iTomfbqboclg1EtOV8GmYKMctt3qc4VCg17JiLx3GK0GAmno2SL1c0KuN4/zlu0h2Ux5f06BE0vYs5F2 HOdb50eHLicJv1jQ9epB 8xGe4XNMrmbjEg6McZZD7d5U65uTbZ/qwTJ/75iyZ+yarsp3hCJIostEY+ALCe+kTd/ij4BYnsnHIAc9 1IBuJOdIbPq0spRLQlnf 6W2UXBrTCk7zwJyAMvgPbYbdF4HWt3KL95/KD+hQoBYn7aLfF8wjASF2SnA+0ZJXkYd+9m2n2CsQOJfL ZP360+D6PZmRKsikDMiY 4n/4gUZm9y51alIJ+MkWsqgCxcuXLioQcRzYTHJZwq7+dUd+hs9ueVejgAYVd8qo+35FBu3N0e4FV6A0 ngt1dokBDMVYXDJ4bTjA VdMZXE5zGNIOd8twyZKuRCK9eNP99498WpK/i6jck4hBjpH9ciWVic96DGL9pi+l/EPX4fwshMwDrsQR 3ineeVKZ2OCtYXSBur2S u2gY7SFZeubwmNnLwF+B7DylV5EEMV22Qnca4wW59euIRrf3MtP+Re5x3C01ATd+lRtTqVFAnW2ejU26 9Z6JcrA93RSDXJBNJXTS 0ntenaM2bVf8bMGUjhg+7+RYEG+JWl8GHYXwVlx5jgLHt5zyZzocMLL0rKfOStujLQ26JFtv9Ta+e0Oq pfkC3apOd04IvIHBoAep 1zGTex6SFdWzEmCcXduAfmsoaRtuedm6+7HWk8CGkNj1ELZ0qZZIPb3FFfcLZnEP3JOosbWecy8TLEJG kcedAHYkw4ZecIGoHLhN qVxoJpmAePhW07Flt/npFCCSCPIyERySQey6qJQzx9QSATRTFdPUsUo9OoG3qIzQuD88mcDXAkNi7GOs 4wU746TKE8bCRk5N6sho n9IuEiZmDfSS3vLw9bKm5uVdf9X7HT2VpsWztwCyamN8FyrFvkJsaEAVVM/B84ppSivSPguCxFvnfs3d Cb1FTXXag5b62kc2TaCB Ko5vZdvhfuCG5EmMfgmtApPugoNNze8fUJKLQXdb3vfPot7Zl7aBV6SKekXGQ25hb6uX/Hhc9XNr2aFL C87T1Ck/7tN98FJse6jp GVnPCn4llr7pgpP9ff20BTxH10w1FcMik6oRY9UKQ30gtGpLA04sUvnz9DQ650gVZq2PgzuKH+j1k/Bd kn5+CqagMebpLyv22edO Fh+pAKm5W7fTOvX2uiYh8xsfuM4SnpotQtVgSEis4MR/ylD1qXmH9c/P/cH4NehzUR5NMT4vcX4we6s0 NmgrYf65Fbhis88QDDTV 7tBIuus9eYgzPJiN5a5Cnc0Y2UzuqW1GTd/LrYLmKQoKUcIq772vHyjW+xEsv5EQVAQHFfnJGdPou8ps bZDd5qFerREe+WwVEBkb yuf4vjcwaf6RR/RtjusBLVqnNnsQb/eyoONZcJwLdnyUkLbO55lyVF9TADR1hxvO1aGL0fFVS+W5j7am 45Lr4vEZgtJp2xf+Rpm4 +c/gCuDp4d42x/C1pMm04WnNYXlD81DA3N6Mu+G8T5X31Z2nLpBmvrYca7ro3nfKqDiMGIeUv+YKgVlR 9znmcEbFjBCjeF5W1V6H Km93ExxZfzeakeVHvd1B/D7X/AUsm8xQFfLV4desBqG1j9qHry+fVBAGFcaXmcfZ9SV5rgfYL7NFa0m+ 32+O/SNmtm7vyGPcP7CX WpWSqvAy2U6NaTuH3k5RDkGNJlkwdQVicmT3eeDs3Pe83PTd9HdZGLKqzEUFokulbS0DYmQc0/tIwlFD 5Yf+EEcJ3HECnohwKPoC p3y6f6sC+dt1v+7v+ea6nRk7+iTlu2RFU828rothOCWbraLZZGhlDo5/H20/ljh9m+Qtpmz2LTswj0zR iV3Sb/jcck/CJlSNWCB1 F7tzTg6GwrJhqGQNApEZxBo6y3OPmEc139E62bibKa9UeLobstx7oWe1AyFVLE5AMzxKpxNWJTUKNob2 lYbY+c+r+/dX4VkN+l7H Etp//VGMYEuO7tgS97jdruL44xVF4iJiyd/MDlJw1b85LrfIuU6W7CIQo/pde+OZy45H9qbh8KKQUh4/ iwhJXWfjOuHyfajesSMf wrQ2FXY4dMDPG+qvVkba/fqH2Qb0iP7X8JMfTpF2N9OCHpR2Bww83B0F3KaMAo1ObSqUrDK2/tqkXD4S Yb2eszQpjGIoIKPvmGsn klWsOMU7ckhjg01CEiNA/usb0p4Sgl2p96IdhDTCB2k7MosTa1qcgQ/e02cGCD8H1osxFLy92SMiz5ZI rugPfDby4wX7aMRghXFp g6X2cX2285HGfbOiin817g/rlXdqlfLPqeplFnXatnYx+KAlzPXIXzBoBgnoOWcgTQBu36MJ1Ib++nxJ ko/IDzyT9xLo+xr/d6zx Yi0OWTlRE2zNzj84Hw73u7G6yYF1beJd+YuOkbuukeyLN4q1GC0rZn3yBZpDebCwC0ESYiLs11BhU1c7 qdzj0JZ+Hh/CZSpVmex2 Hh0CozTaW9pEBNOx4J8iwOK5ov2XZV5EKXgtvh/4bg3wcOkecnIH23leM4cAzOUL9l/6/G4d0TtYpoT2 jc1dqqrIo03lsag+rL06 qorVrFSRJAdR6h0c+a6snNzvjNigz76C6ecb51v+1jb6/iNVctNUGDiMhmLbWXPmgnFY0LvJ7UtSnSTl AmGoJb89h7A20RaJbfiU F2foa5JnNqWHN6wC5rK0UTDU+ycliGyy0U3aVZPfQg42UBxmM+bx1JRI7iE5bSF0bq/W04hi951yfsIX i03Buqya4608YaBCqz/O QQDxJScgAESuj7K1z75iejMdRzbhfESiYm4YtbPqIkWNtHD6v1lkZeSip8VTVVeP2APHi0wxBSv6EsLp lDVCKb3CEap+wm0041y9 TvDUS5rLCqEUAIdXv5Xs3yAn57BpC/+9h/rd39i0z2km/wRZRxsLHSuDuq+EgyGXAvj5/hCVwE3NtW8Z qZJhE97pkMcj83hYVoKT lOsnDdL4Q+vDGOc/gUWuCCsTisEgEAhGeR2ZR/qJ80c3i9Cxup0sMwmp/zdIiqQKh0cyXAYKhrsZy9id ZJY/H820/J7B+y5UaTIO UmFzh05jly6kqxDhSpaWfF4w7DfEtgwMiVdG+q3u7WlDF6N1cWaymVN4z6Fa38fslew2opmCQFU9yvNj tFZX+kwdvbxFpRdb0y53 ESb0WAcig+4R5KKo+3w+Mfs6jtci6MHzq6E/a9j1/BHkobjjsznLS6i7elTSrdRZNNkiqvImdvSHu3T1 UjXKFN/UJ9/uSSZMTJ+T lfxeIi/4oYb4XNiRMefsYqZez8eMs1yHj8QWPSu2mvtxKFSZvqBisJbqtGkOpwJ5pAic/S3iZsDo6GPG jBVUb2bwgpwoVjw2Z4NI TM8eoStOpipMxTLNzVtAbGVlE3vs/teJGPd+6y2hL0mlgxpzn8o7Q+g3WN1TFSInVlbuCOdXv1xkOC97 CcHrNopTF47MDdfDGN+/ iqAL0cqtC31qtFBoUAXSdKnwz7JEkXl9QeVgT2PKkBo2C/IznWM5yc8E1Gd6iRB1IO5A7lQrKIMbjfVZ ppaBPNkeW+WewO2zY4yw 29Zp+lF/sDlT4OKNLNYirZZx6yi+wapyTvNNKfrH2ssENYt/kOeWIMwwvYCUUZSzxwW4A4vihZJSkljA BiFhJmlVkS/mzuoJEI04 KKxpKmWoY+RpYxjnWpTfHXkm8lt1QCWMzkNl8pQ7cIY0DFfnhFKUKaMj5euEgRkjTJ9ZE5Jbe6zxICWi kmCx1J9PpmoNn8dUMSNM MyodLTCHcLdOz1ltM2YE3weHjGxUUc6wD+ZWMs5riJNfhhC5UwkYqPC9IIC729oMzy/hkkSB9eNq0gYZ uoJeIH4dZ3RxVKRk/Sac 0KznHkQG9uaIyDMwfu3q7ZoXnWf0WsdAdvxFglmDtaw2HYM6Xe4NZ/iRjlGN9F7COGsKrikoGLd9629R c42Z53CBdeis1f7lOAdq t0ovY61H8Lzalcggn1tNLeW5t98zf/neHxSovj38cQ6lWaiP3WKOdNpqW/xu2v06R1yHOk78YkA7Akx8 qEw5yo21jvbCUdvWxBnQ QBpjbZ6mHwc/bj/aH+xs33+rqhNAQK+NbRQZd2PDXt83a47D0sX0eBeRNP8lUk+RXZstJNusFhYRpetF j3f4NdEpGiEWDZ6EmORj pSJxOxfioH1d42QHFXGgDpwLr0vW33j0QCrdvqjkLM82jZn4+6WaC8c32bUsSiDYULYbISvmBHGfYxpq Ga5twGoGynF8CP2CPJY9 lHP7bXliz56jty4R1Mt4ue10B6s24WG8K96LD0Ta0ST24nxu3pHJaxsld+BVZ2X1JQ2ZEVEb3O97EBUD SjMubVNmUvBkT3jHd54h oukzE+2bmOpHAXkJJTS3kDJ1QhlG+FmLPyaEn4J4PPOlArcwuVuiiaoGn29e9p4I2Ce94i9CpQeAY04U gJ3lLHmSGkmIiFErDzXd QiDIzvBbxEVFiUEr86+XwfgFjjTJcF0pvWvjFsFyHvOwjlGQobRhlkf+h3o96T58LXMwzVfvafxYWeyw slNxxbr+28ocVzZ5PUiz W/NxuyeBSby8gR4zdokGrmZP1snDM2qF/Oxfj5D+7UkiihD9jjiLxZqY+kFuPGulclzhXhtYxBE1sC6i mGdf7ip58JjH75PEOTai CqEuc46QSG6jzBwwCPN5jC04js7/PNh4eRGuLmu/EuitgUIYFY4+nlibCvPZ92I5oISf8bf0Q+sHd/ep 5fSPbGktXPrDvX6YxgNm MYcfUYMEorzhuLnMtQv6sx6VUo91L+CsvHki37Cj8TaN62oq9RPph4aALdVEKxRKf9XlezaEg5UsnLaf Hi015+rz/JLgiekPZrAd NjNtIQHPTikaA8hGp4/uXgTsCKqBo+RzSESZJtDw6HDyhZChbu1+4IuUMhLhbXVhgzXfKUmwBDOqR87g zstG7Pfz9dKNGjGqPAmI ccpdtkTStnyFXQUKxhyq/wTv2EnExgVq/Dqm5jM164dZn2RQqppHoFsOvinf8G43keYFZM7deKjOSRlI QG1+iyzQVYfs+uqDiM/V aSpGJbJ1UQUxOKZPo62j84wfPdKzyHjkJFZq5TnaI5nDq9Wpu78yktRpUdOFGFx63a9fHVodx9UkxXMN BX2xrEDnbH5saPypjqPY DQXPCjJVRg359ngOQHIKYE7+9Pmaj0cVBqRNLImiwdj5N4a91iezYjqofrruu7TFQhSTnMLWzYqIlKwC q8T2Iz8fxN4b8sOIdpgE QQWNEbsLDmwIm7QBN2ryYJU04edCWeb7+wgi2L2s8TKgyGlm8F6jQz+xOVyilMJ3rzVH/7q6a90uTT2K c5+4oAmk215jo0GZD4Te dK2bArj/rSFsu+Cw/Uzc0/mii+pg3jTjs9FNcgHJdw3Rz0m4K7RECNblHWyeSal/JmnWazp5kMqVLZNM G79KqOpH3HVg/3cRJnRC inI21/LfqJ+LrR/M+Vp536/Yukb7aCWksfhTQtakLo4nxOxhg+F4Ddpvn5fsY2fedZA02tg4bSPApoPX e3/Hwu5vfnCID03tnhy2 mQY4xUCCFauRtfW+XMYQglAReOvnqhLCIoDFuFkzhv6IC2CeB8KgM4m7V5G8gg7pjQpOLjptGQQQft+k HFz77Y/Z8ZZ1Tl8dMtU1 5DV1yhn7G7HjxNSOK+D1e2Bn3/tAGyZ6xfnXmM30sr54rnqCYfqbANjrkA8jCdwNsaS8zoK7RR06x2wo nAmKA2pceX/+cXrmWTHV ix9Z2N+qIN1sRxHIf0YJF/9pMvTXVKdZthU43sSABIrbWTckdRIj8o8ng70ekMUFtQKSgCmcNcV/u5ir jdJW13R8Vp3JvX/p5VN1 LRaigKa5YbLucZ/cp8O8BIV9YpRtv3OfEv+XxN4NvoxDwRywp14AG9fBu64xNnqTTHMshBgYLrpF2PmQ RTKxzqWBbE0eBe+/vLzc t5QVmoeJDWadAmsaRMdLXcDmmmo8k9HLLv94coLr21dkaQAlbHxHrjwW6DSroWMLNHTOUPePndvdNTI3 kIg7Lfg758haKh8KKmLj aZ+I7cP4kkrFL8G11a9mDHNKF1nRgymi0TeuV7zPMxbvk6jJhIoQds+WgmN3TxkvE9ww8wEKV+rnjLIJ /Jose+a9DNmHBdUXXiVL5 ZIRfE+OrJUSKoHWTamq7NOr6wpY3M//a5eLDNDbqu6Jx6S8l5KtxwIwG58L+43yoaKh6aN7wVLDYcDzj rbcgMJgfHUYRL2fk4B+z QSH6J+RkVj6imbuqG32Xpo1YgoIX/KVpG/0AUSB8va1c6a6oCcR20nNq2apip6pE2DLuSbYwZZyNeQjh rJAeiQTZGup3Fk2nL7Ml flxWwQ5sPhgXVO6FH62meDbHONiCPesgafR0bmdJ7M/ka2j/PuCEj3PMOPMuYlA8LFbtgGwivr4p0ny5 Dfcl8fcqBlAk9Fb/dryI Tf7a2nLva+3iCTFr64O/S98is6B/8pzbGOGtZRZy7ZlcDODI7MsGcoHPBS1nHVVF88tgU8toWGv7gxK/ yBBLrr23JTUgQFH00Guw aqoUGn8aPcS8tCrsbE8Kg27x237DfdT7JIGSBGEhpYFMMRDs0psxqOVwQB+Ifbxp3TDixXx12bIUy4HS hUQ46KHK5NkW8ztf667U q36u4NkB+dln7a5Cff4hbkSNxCro2zH5Tfbjl+/8frdQbOQxEAEzgbUSuDlf1Pj9jwIFimAVslQyV/oO ZrAU1IspitM+BM0LmHcB M8pi3JWNJsttp8v4cmVVuGYA1Ys390mHL4R1P8Y6gdATcGhtnrGn+dHyaiHADMqRGaqsDpJy3+alos4z OTjt2cH6KEWRfeUwD5zU bZUGyswNty26kOvH/Krc5tueoqMdfm4g5x7WO6Uk5/U+u9mP+Aacxl91aA5fFWwh9Q0iQxJR3aLsLO+p /tOhQNARXpzq00aPl8yp D6NyWblFn6K95y0KyxLBnVIuB9l62gfAmyvJl8+q/dnNX5A3NRTyQy1tmC0yHpZuFxSzgOKriyg+ucss c8Xfy/tD0/qNWplmDWSv b5stnxkvIA7B1rm5QsF0H3HdX8MWf3+mDD/JNIJ4MOEGxsoaT/7FV7D7wSSbRJ231dbm/6pXl5KqUInl 1Zx01ffwUysuLkPp3N5E sAO7faG6c9IStb328zZOkMEZBLDB7xZd0rFcyBoqFbgM1kAp6OEKgHxlonvJ7pckUJyfsqsubXl37QN9 zM7Q1vpdddQAAO1nlVVf FK+laFWSpBMyTJz2pdRbTiznWjjE2NE2kpIkOlgNUdNOZtYUbbTDWGfzMXOqF9YQSD8iCGbOdY+H2DV/ +BOrE7UGHCDBIbGCmJsIqRU></span>
</div>
<strong>Patient Name</strong>: <span class=clinicalNoteMacroWysiwyg id=[id number] macronam e=PatientName spantype=macro title=#PatientName>ISAIAH JIMÉNEZ</span>
<strong>MRN</strong>: <span class=clinicalNoteMacroWysiwyg id=[id number] macroname=PatientMRN spantype=macro title=#PatientMRN>[id number]</span>
<strong>Date Of </strong>: <span class=clinicalNoteMacroWysiwyg id=[id number] macroname=PatientDateOfBirth spantype=macro title=#PatientDate OfBirth>1985</span>
<strong>Today's Provider: & nbsp;</strong><span class=clinicalNoteMacroWysiwyg id=[id number] macroname=MyName spantype=macro title=#MyName>[place] [facility] [place]>
<strong>Date of [...] frequently. She is now talking to her head of loss prevention about partial hysterectomy however she has not [...] As much she can tolerate</li></ol>
<span style=font-size:12px><span style=font-family:[place],Helvetica,sans-serif></span></span>
<span class=cl inicalNoteSectionVisible id=[id number] internalbreaksection=fa lse originalname=Med [...] for today's visi t</span>
<span class=clinicalNoteSectionVisible id=[id number] internalbreaksection=false originalname=Smoking Status re cognizeconcepts=true spantype=section suppressempty=false>Smoking Status</span>
<span class=clinicalNotPremoWysiwyg id=macro [id number] macroname=PatientSmokingStatus parameters=ValueIfNull:Not recorded spantype=macro title=#PatientSmokingStatus(ValueIfNull:Not recorded )>Smoking Tobacco : Never smoker; Smokeless Tobacco : Never used smokeless tobacco; Vaping: Never vaped</span>
<hr><span class=clinicalNoteSectionVisibleid=[id number] internalbreaksection=false originalname=Depression recognizeconcepts=true spantype=section suppressempty=false>Depression Screening Tool Status</span>
<span class=clinicalNotAden[facility] CentermattioWysiwyg id=[id number] macroname=DepressionStatus p arameters=ValueIfNull:Not screened on today spantype=macro title=#Depr essionStatus(ValueIfNull:Not screened on today's visit.)> Screening Date: 09/19/2025; Plan: Patient declined treatment</span>

<span class=clinicalNot eSectionVisible id=[id number] internalbreaksection=false originalname=History of Present Illness recognizeconcepts=true spantype=&qu ot;section suppressempty=false>History of Present Illness</span>
<span style=font-size:12px><span style=font-family:[place],sans-serif><ol> <li>Patient reported that she has been anemic [...] has heavy bleeding. She has consulted with head of loss prevention in the past, however unable to tolerate [...] <li>GERD
</li> <li>IPMN
</li></ol>
<span style=font- size:12px><span style=font-family:[place],Helvetica,sans- serif></span></span>
<span class=clinicalNoteSectionVisible id=[id number] internalbreaksection=false originalname=Medications recognizeconcepts=true [...] suppressempty=false&q uot;>Family History</span>
{ }

<span style=font-size:12px><span style=font-family:[place],Helvetica,sans-serif></span></span>
<span class=clinicalNoteSectionVisible id=[id number] internalbreaksection=false originalname=Social History recognize concepts=true spantype=section suppressempty=false>Social His tory</span>
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

<span style=font-size:12px><span style=font-family:[place],Helvetica,sans-serif></span></span><span class=clinicalNoteSectionVisible id=[id number] internalbreaksection=false originalname=Vital Signs and Pain Scale recognizeconcepts=true spantype=section suppressempty=false">Vital Signs</span>
<span class=clinicalNoteMacroWysiwyg id=&q uot;macro_[id number] macroname=PatientVitalSigns parameters=LookBackD ays:1,ValueIfNull:Not recorded on visit spantype=macro title=#PatientVitalSi gns(LookBackDays:1,ValueIfNull:Not recorded on visit)>Blood pressure: 132/76, Pulse: 75, Temperature: 98.6 F, Respirations: 16, O2 sat: 99%, Pain Scale: 0, Height: 66 in, Weight: 179.2 lb, BSA: 1.91, BMI: 28.92 kg/m2</span>
<span class=clinicalNoteMacroWysiwygid=[id number] macroname=Immunizations spantype=macro title=#Immunizations>Covid-19 vaccine ([employer]) (12/22/2023), Not given other reason; Flu vaccine [...] style=text-align:center><span class=clinicalNoteMacroWysiwyg id=macro_[id number] macroname=&quo t;PracticeLetterhead spantype=macro title=#PracticeLetterhead><img src=data:image/png;base64,pVZPFp6RYzaIOGCLUOzRYkLSUBQRZMQeTHAMGHC6Xy+UAAAACXBIW NSBMF2ENHCWc MGWHa1bMJPGvmvOBMGBEPn6Y83oKoVux2OvSbyjoRIJHXYHVG42wHZtp6F7YJUoH5bkMXByt49uRUvnE ALAFP3wZZLAIKbdLAixK HO6IyDfikynCJChUd2hBXw2kQ2sfJW5LTJ7eUpnlat9IGOhAM1fZPygmjlqOOAxWoLmmJt2aCY2tu9uG LDmMrBnTV7HJJPuaoAgU z0hXOHmHQAlHcikTCO7PED6ILX1ZCAzHOKlDyJ8MsGuINNfYuNlTsKrFMTnKJQfNFIcRsD5ppDoGzHZB dK3tXozwacoFUC5Eah1i WF1Jk73z1xqvyWdp8HsCrG9VKfsMIKnCoBxbtUqEEE8yuWkrG2rieCyCcB3fsAsIhGud5TslBB5zQ6vU RQuVmbiYj57wZ9yQcQ5f Jgllhm8gXQ6Plm3vMB0Ib4mef9mDW5mQY6fj45nxCSjDlXoGG3qYGfocD7dZbAsCKKoqEZhOm5eeGXcf Q2okdxuDOZcUPbjwOWkc NMcND9jReQvwH1nolF3cPrnjE5fuQ6wPNUazDOyGp0bmiGpVQOfBcMdN19jC8Wil7Bxo2pqrP1pQaSjA zE7aKhfuug3wRHVRV4tu HG9wPfzE54fJjGfr2AbSuTrsH91NQGzPY1eJ49uWyDmeH0wsnL9c1GBdmA3Duw0pIW1Vu9ffm6sVG2xF R8jg08joUEvHtOmEB9hP OfpEE5JOJPjrAHqFZK0KY14MoTiwN1sSpFnOEA5z2IFj25aBLVRCT2dFKXYqK37u1Zjj2TaUfUxPIMkN LCzeC32n9BaAGCgpM3eD sCnROF2NIXayKX1TuScVfFqSAEhIkkMMUA7Mwg1HsBtGJA1WDGlIOybqYeIw3UaFelZVBMvINFcQAOvV IUhRMY2NIDqZwNiQVQ9X nIeLzV7nSF2ORE2CXZibMEGBMLcCLRgBBJdLJUlRQR7JVYhWqSvXFP2JaFqHvFhRbduq2ChSDX6VwzwW UucX4LuIeCjiXkboK0ul P2sPyCzpF2yWV7aWW9dXfAkgC0oWV43FC5bcZPnH0KJDI8oqW9dUnacDXs8ELYqUlXmUA0jNRZwTGP2Q jfqXPy6GD08HkC6SXTeE hXgNJZfJNmbaL7RVqRfE7RhJK23XZH7FmwewZ1mtQN6QPVtJgHwNZIlWxvfJq07QGI3BAw1LrkmHYFnG hVdS4J6XSGoYyR9lOCOV PpJrcvicG6lrHDxE4NbWQ53GLI3HdfoeN1vfQJ8OGLqQfWjTRNdNtxnZl24WXG8NQe3GcbuPZEdGbJrD 5A5JHAgGl0sQIUie1Egb 2fmhWbJm5V9hXDlmUDoH6UwxK7jbb8eVVRmLdgYRGt+JFmvLLZ3mOj+uH0qDnSwABs5HwR5G2Z6HWEgG LMqLDS5HDBvVifFTNU9J cISZxKrSSyvliOvAxjlHqC6I6ItTieCVLw+YVruqKuvhB2qlT3jRcJpZ4EaFO46UK3sVOK0u0ArYwN8n F2qYA29OLdnxP8xuA4mG HJkZjpTZXE+YMnrNSZ5rDcea5CHhrX8BVO7hG5pNCEswmJioQWsImWaxKN2eGljylD7TD8eIDrBFVT1t NZpcGhaKgtyLaOsSDW7L MI8HRKfGIFwNQ99DVm9CYPiKDapUSXlWGN8VtPxi7GTbeA0r4gwfe4hIrVuHf2bPK4kT6NzTNkwWNfdL J9gSziwZDDpx3LYvjP3z 79crIulrwJTN3NqfJ1gNPDwUwMdUOjomT5pfZ4aAFBpMuEaHM1kP0wypV9zaUjlFt3fJJ9mQNW9R9JdZ eF4B5qemS5OWbfnu8Cre nk+AUimusQiJhWjw2CarBT3pK0wMbV0M5ArTncJXXI+FGedrHj6mEAiWKMrGpG3Z2jmFBQtYTFhCE4fQ SJyIj8+seJ0TXLZDrUUS EFUeJztnXVgFEcXwN/K+pO6cBR8AKIjkaAICg/mLOHepTxuQWNtJpudrl5MIAqnFUOjRUdxA1xq/HZ3v a2AxftnTiZWarU/uz92d 97Izu6+eJcjCxTsWMZhDBgpPISygLn0GNoGBdSjlBDeBLjOyKIUgRAwPQwkVZomWHJWyjTLC2AOzAtqd tQcCHHFyRUpEXynxB5yM mD+M6MIuUd/xfxAwFgB4uSOzgGEs2qCSL3twv89DIrwlNBLx/szuK7gRI9GHwZa2viGGw2a9il6SJWcX DTQQtKMptFgpfCAje3y/ vZgLuLvJVrYDDF5uMkK11r0g+obhThWW9G5XGs2XrGG7pCJhy2VOIVrTCTNqUqEhBnA7usVIxehQvk0y ANOGgys7iIZAOofOk0J7 6TYPu56F7AWrmwKry7w28gjAtTtsjVQ3vKUUJKUNz9ORzSuUJuBsOMPc+LEEumob7+Z+iUWXZ5iGOqQB ahHt1Er+qDpI8Jqb8JUq 3zd+8ef/HyM2YzGwEXtuzQURDCiEZUFVUVxjne28/oLf/5BkMSEiRPH//BJkBDnS1hOOqpwcek+9bpXj +0ddYeuUc5c02L7HyDC5 5VYVASFlLhcMWa0rHhMBCf9suN9jY41ta2JxnX4R3WOI/TqyFig04//W67zYEpPxD4U5lrYdeMvcwpCZ EDyo1hntp49laeFWa955 qS/v/1wCSrxdsUGTPrkEQXtWM2Rsq9fRTl7cfMcyWymhv1qerMryD+/v7//gEYkuw2qRC+48+sDg0wwx 1MIfjk8gFdhJ+zetnvJn EaNm/xppQedEyQGkxmnIhoGLYJur6bKoR8UKdL8/MYTPy8L+n5Z34KSFdVuTqdPr8TFs0utmoO9HhGWP TAYDAYDQRAkSRIAHMdxC Af8QXqHJfcRLd4SH0aMS82zWZYg9tAWc/wriNCqRpoqxR5MBqo5jOXggee+efsI4IxJRPnHOJQqJLwdV E9XYxMLMdTJZxpmY1SQs If2n+3EMf9+iQiZ7uctf34pbHUsln9Sv4Li7GzUnjlCq6Se88W/jwOqHz4pDKlqGAsnbXk7/1wgip6Mn Znu7aTm+3CehgSHK1sjY pOkKYNWm/+BYnxLDM7vhr18/+J5H1sHmt9FEKC0QXptJmJqn61Wb8O1npJAQgQWbid3+VuUXg66vxfvZ lmwOtTNZYFjXtl4Uhe5m buXSIVg/s1haSU1D6lzk0319qHQLcmQXLzRNk3vvyx5vz10ypCRcBgoODWrWNOKP2UbP8xJ8LzjaDdBt BwpXHPSkZDXYoSrH9ilg 8NPxSzw9vC4lNFdJce1ysFz6YU8v120wgXP9QeeqIf0hUb38MW7za52k+Gk6SRdi/9+XnJ54ku47j818 s8Bh5MmtDMhw4/fth1/e Uy8gM53lYvdKYwZPkjiLIwY+/x2fMh1whmqh5mVseILHazxeymKhWxU0uugbkW4KWbxsTRUEAc3zYJbM nMSllnpaSXMgYJm1HpBX +GP+o4e6+cc1vJVMoyqmGyVggQ6oO3hWw9Gpdk38ezIicpFn1vY5Ps2lfUn2U8nLe1uwNlQobKa0V25n tfGE0UREFGSzkhhWAIt3 XzLeFUoW+7SxYsFicXHx/d0uHyu2SqzFZcaTm0zAKz88ccY1weGhvuZThdTSupo88DnjsgkTVOhHdgrB R0SmVVdJXl367YRNOmls 07K1XAfEbD0xeYKv3a4z3Vz0no4UnkJ+W+AFRYGIYS+GTmqnI+gr6apeH9Oqv+P9WtARaPS3HWRfggJi S8KVwF8aCvNq7+nt5u9Q 9cniT4kl4UKuVTaXhre351tL+cWcewoWzYHsuK85XfiHm7uOKqkhOgT+a+Bk3kBDPYzZmf8eeuLojKeU v788J3WqIVaBIuviODgd t7diS1Chq7mCSvOf0vONLQMGgDDqKq4GVEkKqEGeQt892+HRz9+GGGKFf9mM1UD9ji6OvYyWRWv8I6R2 97JXcqR0T00A8KLCAQQS mAZPeD12ZNTF84geqzX8bbYbnaUjKCdCtPzh29jez2jyjvKxY75EtU7NnvPpr0Rno0tBvLj9x9jj1lpL V7gOCD65ypUt6lQEci6N uzqteKfFOY/TECCDVc25Bwib10fu73RgNYReO4pQTrE4syqW/4gvV4/l48eRMWHLp9Yn7KkW+9Iq1FH/ 1H54SOqXJGx2rbTBSomq 783r1/nj1i/GRPGJQpZcNffGMLPrVOy3KVmf1Goh19KpQ/R/MLBCgsDqSmpDMPUq1+yMDga0Ja54wAqC rmHvrLGJcx6s8qM+/Vfu BoMnow1p3u0QkGEwYshTimXEm3JDWXqFc8y3KM7/cdox39yF0+3OUFBMsA5pHHbmYDYk1eCAnv5hlOAM cUGgH7x3JD1UTMoOLI28 GClQSoBdlhSnKBMGQfaUo38As6+/bOh8cGGbrz4ygnytWJzaa4al24DxF2OLw4+2Chl861LPnBklkzPW KFGI+L8SBPRFFGeZhIXf ZrIHAgs3QZRo8bETen3m4l7jRq5kEuxDBWbtZOFwpj5yi69AbmqSh7ohk4gspm8dBcyEYgguJgdGrjTl z9xfWD+vWCFhQGKokiSt HdwBACTHzFB/NNzDsXF4me+bxBUZ0rkwj3ROwpwmByNyiVKGQqwVCaP7HNy3jRW2jRSwuPegxwD8JTNO ARAAAGERqPRaNSqPGWeU bqPNTJ9ryHqWJqGlMSDxuvLxoVI0z0X3aa+3UuSAOa9bIWbrhFq7VMteOlkj5lDgFQbDgcAmZ/wRYMVF re1IzyjFvxVdOIqs7KsJ 75y+tGhr3byQn7cFLbxzJ9Jjc2c0iThMhlRUMx2TbsqhIwIkvpdjcMlOzWpRvMASNczvvn0ofe80mpP4 9wkHISEA0Bdjb3TtImiL +4/tSnhObrg0Fi7u55cAppu5hvCWWTKvVFWgFlSNWEZdQEd/NY7mLm4tpQMMuteYAYGn8vPQA3QZGcvF 0+aZi5x3P8qx3Jrrlkws 8PGje/fbBgmyYLsf5oHAbjrdPltq/AIKl/Bf+X3tEFlOYUjRFES14f4U4YnrI23b/y5e+E6Fb5eN+rnI 56xvcCEJB1c2u728ChPf gMMEPWXbdenZzQw6cmu6ra13PMfk1haBjcBStU0dQWS3fdNLJUUqAPvwesWvUsBF52+vhzLpqalxyckb t2y5fD+/S/jXpbxKtOle /ybPv3zNXli4WoxY8hRjtlawMiOEOai6sv9HP8/YM7BR4sW3/YRMQbRfAJHLUj4MKSJ399kNPw64zVuO 5bCfcuWdDtXrsFXunW/U z36/Z8jyc25972/f/ZsyJmzi+rBY936nwf32UwDAi4h7QvYrMfMslbY7FtnJxq/kaY9XPVUEB+io8t6+ zXn5gMajXjlfzwH5hkba 84R2pcv4T6++snFF9iD7sE6DOEGJB9OxAN3nv3DXzSZcQKWeLqS/qbPAsuqW3i+xa4CRDj64IJpgaSkN gpcHZymTZuBEGIRQghl5 FwRQAdlb0tuF3l7VcwuJi8nm/cr+/z09TZPRCn/UrdSoBSv07/EUV0kL7X6uzOXIkc461MDXctWW1qIV IDmYYZgH94UeBFimN7nH vu5i+wcmeyu1ygUs3jL5hFF2f3NvpjGKH5ZbsmwKTmDIqz1hRehk6FhcdiJ7+ckbjOZyjNPGjR1Igv15 tCl8+3ej4Tt1RTz0tYEN B2EP9lfya5lPL0GLWHOWyNgGCQFzupKUmJvIGXhqMfeFx9vxDuTfj47uwxdALeARUTDsGZmRgsMNN4FD /ssNOivk7MVj7fBit6T1 FqeYis2A85l5y0cB/MgOPXTjuBwKjb7SBg05JaWiwkBrSxk7th8n2Zc2juYsYdUQpiDad2rRsy2mYR7H c944aaKno74gMyFvBe5i ZkvFjxI/OVy/571no78pGzqdymmUy5HpswOI1sx223FdBhzZIZ/I0FdMCYrrua2df9dfdZRQ/62fauLm 3eW82yGa/0NRtbAwuxFC pkS429zOQnTK2oDWbayy4T5J2QARP6lJu7Ot6lB6Ko6zzB060mVd2eEJJUzqq2qVMeQpyXosQ+UWzdvD k1mFXp04vlx+qrP8luC7 e5uWhklV4p7UXTQGOUl/nOcyOSRJlRTl1g0z2hsrNxQz6qnHMRky5J+2j8Yr0HVAW9Jxrlxi3QjcNnl3 SiyFUAC+17L7JJVdRXlS aigGGOqJugKCdcW8CtBd1aeCCI8hcBsJFXTIkDadB+OyBoml5qNzkdKugivc+7EsnyLCDz3Vigq+NbV0 HyNf7lKnGSG/wsEZPyrV 9lm1GM1kakTqH7PYV4xFlKs3L//SAQ5utQNXalaenawoQank2KxWcqACXDaTEQiqSjDuCMADKc6MaMfd Hoz85N0sE8GVkFGu0rXp d+1vhXoNjW9yKbjcsUtC4cZvRGO6FvLVgGmAtVAe6QZl8Pf5neqgerAFTyGN2Qq7VZmWHbDPvt5Z1ANK 01Obt2+Y0aOeZI9Hb7uF /fzvOKBZ9zm452lHQj0sYvDzYhdEJKRPmKA7Yc2Hu7+PuF2TasBt3PIwHUp88v5Z7uz1hz77x6WVa369 3RGUqfau4BT1vxHjt+Xv 3p4ZbG71lU+I6SnICcICXI9ZrerrpEprkUzT+0YGHvtjHsRLSTqeq5+Egu4GQATZWi7PuI46h/3BK39d CbJZnwRsjY51NUGleLx5 rtvqaIULEkBqk0J9zULk06Bo5INVaFyVfL9ECSshA0pwCxJ8Yjq3SHcCkwewY7b3gBaK+ajw4FuknT87 unGKluYi0vlXRevrNY4+ 3pd+1uGbMfbc46RMOvchzCKLi4PhEwUF2oHRMLoq60rvLDkGe3WTSKJiDXIE/Bvuz5EXoeMRyUsBcc0s e/YqLYWgrl7oc1Fz0Bxn F4BPPbccDU/1XJJewBSSl40nILbUxX9jPmec+VlaFPXlY9yuBR43rfN7+ki1FXjfpPsjDnQUoO6j7tWg xTKpo7lw/b0QN+NzmMZQ iyR/NEaMvWr9PNnmswEsYWcQbeT4E9ifm86jvRCcu5XswwKzpl9FcAGvtf5R4NOGf8Uh537T/5IvFF6d +8+weTVFO3zCEhZZrpT8 81RqwAE74yinvWboBCPeWtMHhw4x8sBOsVSK/uf46FYeraDz14j4o5ugNYhmZdcLANvGmIt9kPfYAjLW hEiaLEILZyvCLvuvHbJr aooJzFCjTDEcbhTmsBWndUwr2wuAhoy7Zuwww3mD51nvKoi3zIX8qSjoJnBSi6r2IqIP7WGWhTgNhKZN j4cwZfVxXQ5Vf7OcLSHs 2I6zkU1j1oyrHmw6y/6Qwp3XnBo5WdBPNNBinCKOX3j+gLxPXmdcsgPgrwDSmAhvL5Iuno5lAOeMnmkX DiMPHBwHBUMq7MLmAvM7 97fMKXgR0NuJ5flWG3AxUZ+AHUOwS1aPmpcmfbZJkKfIgtQEJDwe1zqtSzHEUtTwsHmiq6pUIJOO2F1M s21T5BD/yz6q/Z3hLqop JA8ApciIytD2qC7pCqNikFP68e2/0S7i4P3ghRKHATjyW2Y5jL+JqGIBZZkWPHcNXGsHGhdm9ZTUobU4 5XJKcv03cPTuAsiYpVJR RwQsoH6sz0ovarL9Y5obscyTNDGTMSGeoK6En7CCgRPVV5VUXFXOZwcZL5DjFsLroX1RYz3H5fg5lFqe gpYWXg8UEEQxIhKUWIXv 2Zi8Ksr6MrZwhqXiVDxvePnvh1jCKlnCvtp1c5tRprFJByz9Qw1QsETNT087RgWZ33UDjyZmm2NrsuZk zNS+fPyLONZcpWK+axgh gPCHEyAP4XxRWZVReYtwRqadwIO90UOI4C6346IL8w1NP/j62++ogmICz3xZCoylmBxavhGmIXVROzZh iKVR7t74Hfcqo2uCfjJO Hpab7NqqNv3Z37PRbIWGcNNOtoqm2YVhKxERGYhC3tmbikttsYO27lmW1iMHK4rtaOxVTgcaoG9C/YQY kFmcAWu8CfRMs4Wv7TSu 04mEu87RlDhkaKF+ed+U2jW79c5o/I82SP5kU8Qf1RMVO/PkTuWcas/Omy9u78Z794tNK+pel3kzXXzW j2pjyguhFXYBoyhhAHpT i6aVE3aLmYdRoyeB5w48kl0sdeMMtPeCgjTFboQ7ZnjLFBv+RPcShlQkcVGKVlUc0XP1F4dg94PZSvgM jwO29FSQNaApQzCRG8Am BmLLF37a13HSJLxarN33Qs5d5yr2R2QBMKzfBSY/jvE2YxsG8eCKVNctppzJoPJxlu9KAE1TDKiDjDn5 lDzAL09h+Pp+FTwTY0xu PXSvbZHl1BwQW5aADL/GL5XXu8Ij5QXbbw6QQfEHwBhTOZu0muxsV/5xeoQu8YiNCTObdlu1e7ez21yk JgsCAnqRVr465IA5+Tl9 VAQinltBUJx+kvSETq2F6IL1+6y9oNl3MPCdS9XEAL3zHBu0yXXb24uHv/GuWO3LJYzqHFUVZQw9rkJP eg2YpadAITPYT7EkKHw/ Zq1rdl/JIFQbPRjtVpPUJZmr7//7qRQCv2DVzMy0v60R2UqSj6b6bmYzeZJJwso/wn18SJ0ckwdgD4Rr YSDIj3HH419zpRbr58Kv ZfoW5M8rEI+K2rlgPmCEQK/IuTamxgcllnyHv8FTrBjwKGfPsRwlN49y5uEjIewt0NIdjDirIcag3Grn 7Of/9QxV2vVUEHSTBBTN NA/XItGWfKQh4RRwB5cqZ4ZDfkxbkGkdzfAOcSCJgKjHTB0+Qyr9Qq31g25Y58AnW9YpXq+pg1OaEfcO d2tos6uN6i9iKJW5vnCQ Jrts275r+H0paUdA8n/Fewye0cQlJoaob8yNSa2aRjKWN0hKAYPUDFYDpB5y6MmWZPyq0NFp6lrDnQVD 8FCfFmrCgldPD66Nh61V dUK1u7LtrVyKa/9D6s8cgIrvMm6m5mpQNSaM432fCw3RtHq46jYnyykoHtF77fEh2a/tUqGlwale0Be8 u3va3j3ZnNrCedqKQMyH 4exOF2Wv17RFkrTSjNb3OR522N4s/OD1ZNnH4fvlipN1Ct/656DDNtCKz1Jsvr0eH6J0oVBKxt9jg0/R 5pBDYvqeLIArkS4xswvC hiIkyEm0Rfv0xu8htqtdCnyoGcZG4jFDXOOvoO5mTbNhtjn187h40ypRSS2/lyRuoYIBS2MFwMHOLYdu 4DhylFq2K7ABqkoa7q45 +HJVX855mEcmBeCAZEpDvAsiHVkTCe5ixV1539BMBbxT7bv3yTs8O6xy8CgnWUvS7NOTVjPiRihyQggj EisTktiMlJGjxu/88/dP r6+DA11tFLYA7340prtcTdVypW72+kf6SptTLmaCtime6igyjJv7IA9V2OrtIZDSB6jw3MfuYDFhG+q6 SxysxdIsxSV6876BEf7n PBH4lEco0RUvkgfc8OdKGs76UDpfFIhsH03zWi55rTj4stZYBnNB9LGMSTrxluOhLmz/pgcuDONGa3O9 N+Nn/O45OTqkkufuRSnr YVSq7Tv3AkeiuuCJDIoAQ27/SBN5ALS8xDLBfYGu1xPIKA25Obv6B240EPst3w7rC2muHUzTxAcJKz4z y+oBdDcTitMfdnyr7WtC ywmuKfsA2u9oi56Brc3rktwI1l9eTXyiuMWS1RBfuX73UmtZiaUNgSSjU8ea4gNzDm0KGEkyrE1hABFr RZHzKUlLsBL0Oct4K17x 9szzbgCghgqzLcj4Ybvi8Fs3zpOZQjHRxrEFg5mOkOZSFFf3x4xsw4BWOi+NSfkcvrhP1MeFBOkU2ItK ZT6vqBR81hV+j8iqqHDi boh3+TJzWZvZiUjfjrhP71mH8c/gTtukvv1DVbK4bQr8BM1e7Q76tqdnBCeU01NA2/CWsCUBrDCwkBiQ gJBkpxYqtFpxBWr+1YOd Pj3RCix5ifwnPlJjvUFujI0RuPRYvGbB8nPq8sTS76dQ5I25/sxjr//VRPWtpTraeeXGtwps0vAQDIeO 5HgfwRJkkKx+N1Tm7apL WR0mZt+0/W2nmrkLB2kPsFakAxmlGP+ZY8JLIBPwhWrVpiSkmbwHPANu0BKyI8vDnRVMJKm1Ol2bD0lU pVcVWFKGKywMJCTkwMAR yQxn3F3VTHQKEqOu+ge67vrRdmATxlqAxnh6qPBHaG1/RkZrNci0oZQrzR0deHSr6A3Vy6VuDK06g1BS CEHnTHXMBJe9bgy8AARk azRaDQaGIM+5klJjrBXAHdk0Zr6cOgt45sPjZIHPoIEHJITU8Zxqg1yTAip0WH1SeZlwoWlIdWPnL4jY KRRUTuGDd7FrkWBqkdAR SaX2fdCPiXXU5WY96ht4jzxNFIMeHzy9Iu8Rqs+popKzc9V8RR/EpLpaqgi1S8vWECDLhD9GiOh1m13/ jOqiHePP7GCvXlJPwTND oFsWDNePPpeWpeZkxsdVbXJaYv0GxOnnKRL2Lodl8csIDd2w8ROg6LO+ChNAJsvBfQMKAp5H+0hjmEQQ ioynyYtqVBzLe2LJIUVU DAEAUwuoPjojlL6nxrxSYMP2KGHCxMYswSNcVsoyov2OjiJuiDadaweRDpUjpYcWT4a9006k5vprLgyT qrrMhUkywBBACAAApycu LBCKBltiJAmVCVuZdc9X+bxINoLde4GyjQjTZ46Y/cgnYaoXkfFckijfpc1/SWHmUmxTypTG64lFefzc V80+WAfzH2UQoOcBp9fP Z06X1ssftuUtmZwGbPeax91G/iSWRrtZbK6sTQKx5rFOoOyJZD/Ie4ifqh2ms0zgBYpe5uPXchlESQBc WJWEtpYoKRe5LFn9UXna a2AXllEJ3YlHJWxY6x0IZr9YMt9idp3KrD2UAwfJFTsPoV7xPCeta1tfjae8Khz6ncETRvdD+tHCATGp xHqHAWIpcCyYNHGAQRCA EgbI5udeeZlZRaVpRXqhMaIJERlTAaqjNx4J3pRyeFQvcK9lsefxsOTupuw15rNl3qAuJIWHIIebMU7Y 7aTSdauaDESQegh0OhLR PmQZucKldxv8g4XCYU4EKl3y3rAo0ZjTgY20qlK/IgAPsrISZS3uQDT4tbz4WhCdc4RFjSZcTtUKBVRD VGjrsTGjrkdqmscDGbru jZyFQ0NkKtNG7vVE3oTbAZviT8rhj3b78jP2+/SosAq+gBze8gAK95F/iFpWVvYpeRf5R3HtbIg5NYxy iY4/TktQgLTaDDlFX9hb CPPWVU2RxY/S31g/n3hfXYSfJrZof3k7Pte9Wl5rsDDoIfJMYcVqsQp3yIHO2uufPPSUL30UYUYHqwEQ 4CTwWCseii5/Nt8F4y7v 3+bKcwX2qziHk86cpM5wMfSm7O5q1oWLHOnnvc2iRLtd59+FaPXAfu++WpRLUCuMKhMu2C34WbL+nWLr z95XWD+6xL9jGwPq+U9e /VEAqEg+mC521z8o8tAIrYmiq8rXyGdLTS/G2ujLi9ilNLy69OTgYEnp4KIwhSgLnxCcQErHINa2Hmya pKcAS9hdvZH3xnFGdpk0 zy5tCPfFx32RCZE0ftWfJP+KmR73xlcs9Qu5XO7Hqv/7bKh3mdDaCzUHLqp5maFMQMkOW/Zm9LmHRrKx XAjwn9rRtMxwmtg6rHfG NTVJT1DGhl9JuJRmJg90lu0s9y85DPVXybwYfnGAPjYjUfZ6ld66+uby98GmoJ0sKFPWinxhmhCTyNgP /9pe/lhna3vbH94k90kV PhdDXNHKBgRFrPz6vfGEIAkQsiXISzf+3BssioYkUukJeo21yHZA2S6INlKSOJzd5Bq/gch0cVFPMVHM KBuIgVRA61lOA71+UT88 fpMaztx4W3wGJglkvEliM1jRdcsv2mHcz6uFlsSfA4+43Rsu+iG32RSukhuzyb0Ebr5/b2dUjfQGnuAB rHSc98RQdHge+Z+mF34W LxLCGVVMh9ULM8TSwTb+82PXcfWjq1QgUMHOVOTFVs2JRYQRkxjUaWM9xXQZPHPJnI//oElg99gEKoEa of4RJ/OuVLTrkp8LH6mG I1aQ+y9kRHlfp4MZmhzxfaTNmNAeYPlp3BqlfghkWCF1QL4nB/uCxPikFCkqRykbBKsqtkQyWxArwPT1 EKCAKEYOEbyIso2/Iz8Q Kosp0D6apGGPxRGmzOgt6J/v7fb4aj9qs1WIqVaPYccNMO7zu6LltPHFpEZwrm3bJoYb/FSyBgArLAwF kQ/frz0l1+ko43HbfJUC dVIBRgovsDQqmbKZOXhWdMHzFSxKq4LRLb3HwrxgsZSXGLUom5ZWdPKdIUCCELKAnOQbON6Oqwfyaytc rHzGQSgWhvBE9pY7k9H0 NOVeQo2bFTVRhEPwVOKYQkP+Ca9Sbhsr29yJ5/9soM0X3XPP5AObVyBNyx/TiBiGNDmpzIhER0rRYTCf TQ3e3yaySbXqb15aumyI evW7xmcxQJwRWHEkucDsTNC0LCMjCxE4UTy5tb3aeCcegvFzZhm2TNcviuXMBLNlafhZZzBj3fgzls47 tnN1Kx6+tPFlBqwwsIUi RYoSR5Dt7yB5Sj6OZvf3Lq5RWq1LSdAbnAbt71U2dHzQLbACG0n7uAR8SpmiUmWZMYgN+fJI26M/mHix EcDRAIGBKoYAqWPYo6LA OPkaWRhfWS3iWuFZsEgmRYshKsqs/++/FeDt3/y9/MYF0/QaYqIQAsAIdfdq+yCVzTr1IM95f9UeaXta APd7jKaSIdSgoLyS8TSV T17Wu/mhk8qzv8zWVe8xBWXFCmLHVXvR4Zru7zjj5rhdGv2Fgia8tVi4FePYfPzaGS9vOLN9qQVXzMf9 +PU2eaEBNEidhIrYBWGm SojAwoCCJZBqyJmKQK1bY6qIca0lkq3d9d+Vwk26CXfI4SIksNY7f+SvrndU6lmrbBtkVDfeSOCH6+rr RRodHTjJFLCYKCVCvGrZ 9Mo04U1LSQUqv9+g0gmgvMAfVFyRkw5gjCQ4f+i1+t/NfI8sf8/JIPNVLcQLPfRYAtIQGzCaa4YOMzdz UDQqHHjeQsW+uxjY7YrH h6ssDD/CKsa1Gz3+8vvbXPNRo95uxQFHFlCXkhZQUszGQ/icNxSd58O/O5utmT3y4a7/dMw8Jljxf6Q6 czCOFCdJ834er5uWCZNE wPE/TSmqYXMINxIxXwDrZUUYIbeUNGWZaCZUCcCnlMLABPDdak1OXVYhIAQICldAQUXMuIPNRyWhvYXK AUNhwv0UFOAkPGCTLniR XJSCmWFFSlBxbMUTXRRkjr73K8/Y/9eYPvq3+yDMkQQuRnySkbDK0Lm05WsF6cughOre0SiZCgBf6Fr8 qw97tu5+/rJK5ZHlJqyA CWucB5LEASD4LW5sCgFIlqizBPYSTVgi0fX+c/f2L29csdp8gu0Y0yMksunLN5LLBMOuh8SnWf6vq3tP Qq1FeSkx434weIWexd4a EqcUr5emcc7ajkeiJma2lDxt7lJ7+zDRi64wPIr4cSugTsakAn9mVzXQKD8p7q6yWo06RIMRd+pad973 t5Nu8uJXPIoNtRD2poaI l3r6qh8p9Ok7NeZS045hqb3S24TDQi2GPPve8tbPFDQln2XGgCeUv95qxmSFFZiUaZUn5UmpNdvMKoQ5 HvggEgk+jslxvyHSUxMn Py41cYBhdTw9dQfd3pSQZkRZsQktQspjvYeNg9GlWhUD32iw1CikW/lElqwUVjF4O8xnSYIr2l1EZiFh TCEyhJm8BTySo7FUC3mu sLaClMQ9+6w21bf7+RAqugPGGbd7EhvqabvMgSLAK2qIt571DrRGcA4+PV+adpbf6myrnsKGtPXh6DT1 yLHue2x8xZL0s747MUGM 8SHM/V6/ZGDh/zK+hiw0h3oxq5vBGa/f8xFrHKKg4cubSHH9H++6dS5c+Hyo7/1ooRBOmSWny4+esSI6 AtTD5vyYWIOaLML3VgoL 96/Q6eO/V2eLfUVjgfVb2BqbtZeBchbUavBu7CS7APzaMDunsDafVqgADpDtQbGGg+PHVOcWFOmTeO/a J+bm/vj+CkniWvCi0IR8 CIuQh5ht/9qkdqe6h30lAno47P72JVO34DI9AtyOi0odBY/Ln/z+g2/3X/aYBtUXfvC5l2omR1q58vyw XG/r/pbL6ZB88/hA5o8W g56EoLQ3hkJi9I4HmLul9tm5AGOrUPRtHj/e/FwHiRo9kb2Rb3wPj2lBfRopJoUUeL2yUGDiTYYQYLDf Eztn5kyGp84xY3iCsd5s BrEOUm0ojJK0fKNgXOSz2o3/DoDJRUPZ24q4eObfEuoArRJy8m1C+DhZvlBdWu8bvNCc1PBZe1zpBYv+ jVDrMIAbAsYQG2m6tewh uTrq7OyS0Wl4eXuyKhpu5ipIvFGGvMVKS6EKrBFr1rg0aAZJUMZgBLt22HBKoAEOM4+vDt04Qx2SQNiF Uc6mte2iJqyYfrcIu2+R AasI1YILX404iUUV8QfZublQlD3yGjUsc430+3f4oLYwweBpd4l/dsM101CGccCOosF8Ld5STshZ4TRN Q7yv6QeSFphuua2vK2Ta wjb8AIM40QHb173wBBMoc6WdkcExtf+4I0oKz9Dd6/f/dI55kKFMfg0aBiLNExLjff54KGPjhQkwQxCf GkzqcxSIXIcd/5ciEqtc ym5INHzyfu+cx2664ZqTL+NWhMeHvbg/x3tBurBjYAUs6l1sy8t+Vjiu9WyWHO2pqhPYXblXxLzbUxzK RcPjEWP1wbKIqHysjoFn xKGBu0s7zvHbyCAxpt4rvCHait6xgzAGJ4yMAbV2Tx5Zx9gDjk2z/noNrjcKN1MhIWm2+mqzYya2cPll ZD6LXNYNFbcHPBfZN7Wn fNKtPMiCWDu15ZMnVMeH0qbxRFSm/w9lpIEJq6XAyn8jlESs7atmHNKqWphpBJJKcPd2sn7e5mfsIq0Q hYc2uWd4dpo2vcqXW+kj 8PIHVLeIVRKBXxc9ac3WoFhmo4PTc0EwYNdxpd/jCNo5GvA1hVi0kh+tw7XUq27R2OtHXSfhTS911dkh hTD3g6k+d8r3IXhvbwGP 0jwHmKbPJlyg4P/aasFi923/0sYXB7bxu6yG7svMKITJR5d+3gXFCiPeJZAMIdYl4whZdiq0+NyC4GfG PNAg0H/9jNFxAt3nvOlK Rnuv20ast57qJkyrXuYkXdVbfuTobeKp32mHBPv06gKU/7Ytr1v/359+i1JOIrwrGMVE6lUxFCENdPjE 9Rjp6pGios5+7sTVm6Qe 9RbZ6sTHWoK7GKQJwEm8qKLqPlNnvvbxfs5uIJRbQcCeIX+/D8bqchr3wQN3VYjCWjRps72KneUXeMPf h22s6kmLEMdBa/euZOcn EsncnAcxinVydpfhxM5q0ho6RXjd94/sVhcUFE/qYYSCxjHXj40RlGK4k2+fW3guLH5P8kTcFUELFa5e SHnQiwuFgAQBJGWlrZm9 nuWwQIY4LQw1+p1a/EDVIwr9Ne7cn9+OcVFEf9oqWk/8go3Ay9bIbynpAOCpynPIdqLnrwT7Jj3oa7PR 6lsRdarTn75QBoiWLNjU HCr6puXX5GQgbGw2xjRzb7qW59RDddTtJXP2bYw7g4bKYa4sXALfsCjGO9zTku/f/nxUZ06MxUQlv43X Daj0qHQ8nj32+aNm+zt7 Oi43oDoBYsvOJb/Uc4gwGomG85b5KYc9MYxgxydUiA6ow6+SGZmdCmMIJ8yXVy04aut6LYleJuq6G27y 95xxrj3s52PPAsGNqdx1 ACc96mpUc9nbae2P/XNN/C+B6wRl716u5fczUavB3rXn8ZZlS3SCgMRLf70e3AQ5lT0pn7x+/v6+fv6V z7QRYLhMr6hCw1NjioRo v58iqIkfhrCG+ch43dr0JKwVjp7JJXpyMxRiYYmDwice8p60AhNf6Ilhbt4F2/Iok2UKYoTL39namwR+ 5EQT8Cgztn3Md6k3OlEf JCL38ZCn7kTEcD9kYenL06Gfb4iO5nlK/f4+/pt37rN/OCjhw/0kh335v4mVAWN5ZBd6Tkn1/j7+u3Y/ kf+0N07d/r7+pDp3KcGw Xe5N9EhUnyXb//y5Uvzg+KGeSV68NgCEVNzRqnwdbkym+5o457heDe4yklt4lE1JPzVvB/k2hYUHV664 HXT1Mlxctq9vHMMUxDZH lhs5jRoM1R31ztOcUf20tAz03jBlTVjz/utv6/f/2o1Wr01vvFUSM3beG97DhF7uiExb0hUUFJbD/TyZ Qmvl9M5q/Zsf1+/7p27v Ji3boZIjWKa3Vqx0/NWsXdoTqAePINhUKYeKwd4aY/Kv7t0VBiRiPX07DrOaAnJm1otjt/cwaBX4jvgg kcSSnOSeOk86zE5uBQ++ snf12/VZu9QPF+2dStf+H048bXo0LYkstuQ20+KkPh49z+oOviIQhc54oYmsgLnoneS2Fk9hxNZHTfq0 zq0eqVLVE6vu91rOpU6c Fl9eaZK8Wr98QIkoRJuxeLxMcTP93DQ9meqcShRcRvTKVCR6uerF/i2kgU+Me3s7f8DfGbMueY2GtkCM yTTGi4m4++l62jdbgMBr 7GaUpYp87y013FNKFOa97XE9PBW7vciih5GAonWoAxX085GI7hS0IjG/QcO/Pe325WSnpIPD/HwwQOLU NVc6bMXj6Rwm2ea9WjaU QlipeGGJNAUXgfeoTlKFA2Mw2LUY8jmE/4H9x+wKvMRpKamxr+JN+36+HAcEHqg9t4za1Xn+Q2Iu7hpS 51cLN7Ff0xOznGmBaxUi 16uGorp3bbxoZv7vzZUq5oNxlc6/umky90pc48wc/lhXTqgAqoO5fK4fJcAep71pIJbZKA8RiTqd5FFu Oa84gbtlq1WKbBtQbwvp oknkPcTJHMP6caiDAIPmYj/XDlIzNGCONst2zFhBAz3c8gzSV7/lkLJHk0ri4pb1J6gCd4ZT1/PuTNnZ 10znbYWNm7ENioi4msKi +fN9/Y2ji5QTXksVY8hx/Jn0j92WolYDx00MTkR4Uc6eeE+Ih8z+blbj+7fqrf37ZDY/f0o5Egpe30wh /opBKaEbKGP4z8QfGs5z +Z5SmXf/v2+byqGIE6bAffx/od6TkSl7HlTzbtB0Hq9H3xK1wg6+yWCiLjD9I1FgEwhzkYgW3gVqcqMW kBBIfYzoSFe7aqIUfop7 cp9rmiQZpmRKXuvihJoV91yub9hKIdYIYhtpKBfYIuAtEOz0Lbw000RgbOy4341z5fVx9HZDp7cWKvzd FKq56exlNu4N6sR7j+DB NQMrFe/vtUsbt+54dQIrvzPGhwvCIPkRJGCVvPsCA2hrbiiID3+ZOWdVhVIh99qiinkPURWSVxGmzF9E ccEsmKyYqafqvE60bmgG 9i3/6aAblTqsGmOf2+PBd4+Dq4bz17QF0u1lgsTZSWJXPPY9ISCE7VDWJ3+aTPSjsb3g3/8PHOWVQGSJ IUiEQCIxWKhUFhQOvlZO G9+HPBcTdYGh81vZJET35jCWvxMfHx/z37x/EV+yKpWdI0lodMF+l9sCFrr6KbpJX491hcIcv7eFoJdT 0+gubl61pxbGAM7277wl ZLTanVQU6xuW5TuNX7fVENxgLO66dL878V9u3+/evWqX//+T3QgYRux3z0clInkGokOd4iKmnpX7/fN8 mW/fk2AbFVzMPHP7QVw/ EQG6unWhom/QeXiQHBxUI7sgrHLhXIFzL7shBmZjPDZ/euaMk6lwVn2OVV1aMxP/43cTWqjHRUD3jOQN LS8t4/OolNN5jn7FV7+f lJUcIcO+K6UJaWqCXl6qOAu5xmNI/xaWo8cU31k6wErJeotDdmuGwo0/Z/RqKBkV6Hm71CD5l5lIMp06 uPHjhczzcKxMHF+0EPII 4THMKcrd9G9Lj+VFfua6Ehb7UppJWYrNn/9/txTpQbGOLugT4E5D2ZRv6w4dFUbzwNigqmvS5xZoKgxM Ku6h3nrvg1ANNCwkQsmv /UJLkQe1zyAXgYwRzwd5+MV69ToDyT+6V37s3qFRFTfuGTsQzvRVju5F64X6Is019bxqu+6Z/wy3qqB1 N6lXqkMk15Vzaex35Jv8 WvVujUAXA+/glN13Ufi2CjZ849CLKfmmkLxb7c844/hT/RU4iBr9+rVr//JfkEIJj6aTYOaByo1gD9Np KkzNPIQpJqNvg97xq8nc PbUTs8t1LU0uAU5+rd1/JxLhzVzY763pYXdSzjxk27FLCQaryVGBrnpUGbbQwfMNCyRO/p60RpjcNsb8 0zVHsvPbrFl7NIIY/lt/ yDCRUPnNXF9Dy9/zr4b+PunyMzMTExIrN+clS6DJ16fe/pa1UW7Oj+XtdFdKZQRN7Qe/ewDLjQGozM0T 0+G80z7c37v+Ob1m0k// CUBL9jHPjgm7sjH7g70C//mDQD4+vn6+QF6AYGaark13g/PGRkZ/BrBTDFZ4t4v+KwCPqk0qFV/wsEDb ++cjsQBNXSOxOq7Px+Eh qFkMUgEOQ6DU3rJ7Be3AiPGQwGKx5T3oss3OtEr7Yvfm4oocOHb7j8gQb7totgdXYh4OgcVKpth7Reep ffIAODB/dmJGd2ai4DDY r3nqEB1kHeERzeM/f7gH+6MWMrRxIxBHZZK7xexF5DK5qKJoHkDUr7oo3bp7y/sN3x0ECYL0F1xuZdWg V31truP3Ug/bldAhwIAS MYyTXlHw0Q1qoy0x3ExK0wyqF4ranewqW4H7OL16UzGJWbQYexr/Pj4+vH78JvT9Ru0q8A/c4fqJvNIA ntPIAtpHETg5soTJCVMB gRnZxfzVpUyV/khYvEdzhvlGu3PKo9CCKKYSWxYZcelEl6TmlC+/ABtgfsrGbVFf8zm7ZddegkSoNv7D ELo63F1NsIzuro9+jgq6 t913JKLC9Qlil9cvY4DZZn0U01pn0AoxmljkmQWoAgJc1+/OaTgIKvbeda7PbPQA0VmBh/wgEb9FIvFy PKpR8s3icf8vA4cdNYbv Y9fwG/JyIJ2ToFuu5hApPp52Vkp3zSjclKGTbCSAWJvbJ+DNxJuZcA82rFXS4LP28frJ6imNHWQn5Eqa 16aAY9TbLEV8AhFQvpw1 +GHceMNRoPVDoWJ+m3ggZn8mORQr/Or4Xvbv5cb8XQ8ba05zeVO2ji3zltWei7rJwUnaK3tYgXhMp9w/ 2vESA21fb9vw9nyCca5q sh94LEahf5+xpM5CLa5MRfDoV5pVfrVBZLrY0jDzXolR85SLASuSr7xI82cUPayxvBHGrrOxGAMkAblW QtLg49RlrkKazikF9Me7 3JSYEqFGe41K4rrB41xXrlO8PDCXYWX96qcZMwBdWqLnThDqiFEFPdqiVZm/Oitjx03OWqsi0Ou6WEeM eCm9xFijCqQrN1sEoxjx i18/t30LM7KZQhBU+M4bv/zfKPAQwpAItCHfg4uj5aXCKIHoUlBZ5R4UVl8/9dn+MiRABD/4i0IIXV+q GNSoWLFPn3/9/0VGx0xN 2cZthAbCk+Uvi9MbBnjUqf3t1ddlquhkG8zi3u+z3SRhqLpi1iHBZjlrsKmP9WeNoVX4f1vBUIn9DtAs NcQCIx24WieoxVyLOgoO Jib+U234JJcJjika7he6v4/+nIXyq7Lb87qi41oDAo6e5bgQBJS/1cg+GArG9+cZ1UkWXG/ruM/dEERA tNbnCjqLnqvJPBeATSat 03wccP7y+xZf00OwxAh0PBg7gHdfDOzIk2nRCsBrfXP/bVKRuGN4Lhxb1eKp19jMyZ0ZUln3HuUgz003 PF2XbEiQzys4mf68FiA4 9WaZayECw3iJTS89VtN5o8FIGqdVnKKqpEibh20soIbbsenLQtiZD6WR+av7MC0Z/fqptCkN70yPhzet /1eQHbBQV2aQXd1rhq+9 2PWgBI6KgHl4jvxxW8ZcGtxXYYom4uv/IyY0LvUEMwCE9vcrXTAur9nIqAhZS7yd/L4ib+hjz1bo49oH 5/mZH9Av/5L62vsLqEQv 8liMnPDVQJNfTsLOa2lQ4gMcSFXsVCTZfl0AEh8vRRwpgtEiIpc/Gj7XO3dUlVuhQ2BrLruhfSCoRvdh qWlMfunPfxA6EouRgJzT SRNvo6blqonje+lnIQRmNSeUqXjDPAfu13/vcsZcdMDN35luMyrqdNAq/+yaNGzZ8/oRh1dGdknYz83n nzkqNHFsbWb+Ftrunft1 t1Up/v27F26+JfuPXuYDzN/BB/7LlQ4zo958111zw34ylmsvf/gIpLQ8UiYc4Dgnthe2IOfPiSC5Ng5/ oimQ2HEMUQBQaCPdwbCR MgLPWnubqFRcY9lta8ip6+EDKG3A6i/4AJd3lQe6L2HwggMdRddHuzf3uuevJPjyg9Z+xfkffYRKBSKi EbKTZw20lMs8+1m3p6sK iuEN8nMyufiO01uNhDESkTDlaWRcBbrie/Oyc6+msUt7cRbwb534xUdRnipFNBhFv4bEmy6RZHhJxMZf s4DRXlHTkDD26fyZGvrb H1QuLjihom5zkiyMw48oRmwNx80XrMsbCbyobrsrgeijvwdADMZlQLeFMuhQlIPWRpkcbQkTL1tu38hh rGq59APeyHF4mTowLlt3 6JIrt9bmxQl26vy3/Jwm0mkr5bymDy0HXBdKWnl/NtA0EBfGB0P1g8v6j349WIPLHiu0+fPBw8Z+kHZ5 8w1rlQkAW3LghGZOSQE4 UE9YNOKllrPCPF7SRS87eowk8mz+9f8eiF7OM31i3lgUtFSm2tTAtO0o2NnTtiQhk19l0/lQdosim8ww e1aEPntxBjvKLRU53DdS amyt6Xs3BL+kT1vX0jI/9yBvqCagFOHeuL8ZcgMNAeZ7c+3Xz/e+pW5AuwTcBd/S9owvv2h2Rxai0tB0 43ahExdcFMDplFe5DdMN WC95Muk/1Ub/p852Tc4V3GZgPt0e+GVTQrmwjF18ramIDQpMDUNzkqg96162LxH6iC+dx944sTPrPfp0 ZhAtfR2jRpk/+1V2uScN +FCKURmTQu80Jnu5el6r2fktM+rn7xYvjjRxxsaPi5NtvcWawPA3Ei82rW7kSOx0o035hu0/C1emSk5+ /MbdvM44U7mhlF+2Auvu Kv1YSFF1Sv/pRYZy9svco7oqeXDLLHjSdN8NiTzPMZf1pny2h71m2r/AkBiYuLkH3/P0BOU3kjVwCd4C 6GiGVAj7kGZMVeEfae// Wcu2Zeac9jAyD9h59/v5mkDVJOp7k926MHnbJbgFJ0+ySN1oZOWI6l4JUJNLZRmKMx4JY9GG4902ktSv 7Ls+EQcHZXl9Po+d/Jvw wKFxBlaLrgwkd1J3p3U7+/b+/cj1kel86pitblUJEgR+jmcJnWU8Jv6drLlK0Ssdhu+sdPU6mxQxHgvz fbg/IUL+Tnwf+7evXXzZ onESg/F18+MbiYzx7lRO7LyfOMlGufrNLOeGVvdOR6/ndzMbncJEIMr4ACyv0ROzJcH7OUpJTHEWppH1 7Zt+MwQW4Kj65muKztzE FJP6Zhoa08LGSJG/4Cty3xYxi9qSHUl1D44pfIOhlnt+XfDemnd4oWBh4VPloj1KpAoaTmM93/ggPwRD IZeUmg2yfLK9XnN8hPJB Tq+UrLoB4usWNKYdUjltHNV4yvZjeyIs1MprsNtpcHZGlLBXLillR/MpOr7PaL1Qx+rWoKQYugaiK75b 73p3btBx5rY5cgy5Dna4 eExf+BFhzIlGj6kZomrohETnuW9aNCD9UYzD1pVGFt8nyJw0XpQghAMOOptl3ICtHwAqQXcFTgyInPx3 Oeh9zuM2cIfyKJ0u0VJ5 16X3KR8uiEFbb2/AICnp+lsrbwW05ILwZoQ/nfKYZYe0nk5k/y5X288txXX+2EdhFc3K/5TkEbS7wmqB TRjCWMiyiQafqd7r29hC nOClm715xQSs1BD1eoOncMCbd6KRLHeSuzp/T4dIisB9lpMfjCZve/cIqK46xFL2Y3bdtMpPxndBZhSq 7Ng1GIaSqRC0IdIoG27H q770n4w117p1W9u4iZmD9XoD9H5tyfaJqskyCIowQXUbQY67MbhTdze3l52N1h0HQMnXr8LVGzF7kbkr 2O6kcl7UMKR352cl7SwW hGxJKhGrKFfIQItOiYm3w6suuHLWqCJPc3XZSNage4Qez/rkDn5GJIzPwr+fetW/vd1Omkf1JCI8n3p4 aeJHvKGQe6CXymdOkhTb qASFmvwkppKVfJc6n4trbymjOeuDGr3JJt/kY7nI3h+ZF1DproHflYNozA8QinN1jPqLHRzZy15PvbZt S5ykw9ugsnIEd6LEAmIy k78bTuGQwbpwe373/hdWSXNb1aQRjut62RnUmYvYfyg6qYxwaNDQq9r8g12CYAwlIsPSIhBr16A4BXv4 dNres6yav4UpN76Ft2a7 +margret+HYa93zhhLpf1hh4W1kONciRlFVcjJnBL3j/vswBMJp04PnVv93pD2z0Y6+cJZr5bmjg7fvfmGS+O T9vp1mo9FmNnD0Jss8sT w764Isd1erkmHylba162uffde1zb+gtSExM/J2d22pP48MOh/gR8/iUICZicsTJnXhy1LwnX4khg/CoU WvWrlkjFosDAgNMfppW4 K6nZJRnAaJFtZftN90oeSQkma2fcNEb7Ge9Kw23dh/44xGLM73DoXIAVJzD59iu/416m5WXWr9nc0ykn 2zadGDf/uVLl5k+XQEAs TGx58+IDERGhd75X7OFQlP9AInx7+2lCMvtdIi8WBGrcuuZGnML6Rj1Ap8dz7a54DCz0/9ISUlRKpUMw 0zwEcHUiOPZGN8bXznh3 YNILJm0yYTW2/Enj4EqFg0HoWp0N/v5s+z8HKs7F+s1P6cHaEu7t1qRQyLIoAtmlG2/f/h03bWEp6ti1 lrR9pBGkumODHIkPvZfZ wGWymnX5685y+6cOVqNtk/yyvPb9E9j6McapRjvXON+RLWmjrdSvmxHgmgpr1UsUQHO8olUlKuXTJ68O K5S+lwNCmznXc1Rav1+T bxAKKBIUqVSRT9+jYKxzjKQpk4OyRYzPPvy2w5q/EbplWZFu7phjg+7ju/HADJmB70KiAYWPDgZ6s61X l6kqrzjllXuRXF3VKl2W fGqtfRvgCeqGLOcm3F/4a3q23YIMhGoGvUE1ngP64+bh8za9cp13Vcu3OAZvCjuoQMZkm7nIauxMnpyz Zd6pEXTUVIFVivZFO3Yf vPua3lfP1JzeR5sTzvmySch46nbtba06PaHaOzX0g+LIIGNpBokuB7hK+UiOslBlAOTladZvH34OuEig ZVwsiD1pIgHm0vj4lcjJ hs4XtIBRJuDnAawzh7HqtWrk+lgVC8LC9tc2KHfZE5xLIMSjk6IykPgNIDTRFM29bp1527dueeWQjb/7 U9mz43oC/j5+aPRh7dpd /MYyG2lC/J8PyVs2+gOu3BuwJO288+fP3/76B7a55s3bEd8KwEJhP569/LXa4d2v8t0Ub9ZbjB5lcwc5 AeTG6hPnoLi4qo3uNMKR s6d/pWHi2lFOSaIP+RUYjIlGdTcOWtn9vZB+/uuGjXVBPTDUv772tqSS9wISkGl7U1+slT2C9C6fZIik rBuid299wkzw7x+3L2bX 30z5cWCTUYCyiXOIfTbZw2eg/jdxYkJXTpAXobGK2cFJ7YIEB8gYg5phDOPlHuVIv+/Ii6kRlDhhCdi1 lCra2SpmVUhj5pmyhu1X QjoFIaOIkRzpH6hhlii/+p351wmic9km6/JIl4MGIFN3q1dpCHTBi9qdtsmBFHSB/fNke8dFCc4AIxQK X1ZqAKLcN/+/uwGM1346 FPs3kkTIa+9UR1y6r81n+/M84gr0Tmsm1tvZKAqzcerZ2GIU9+u+VQKoRrWO7Revgzqc3p9LWxNpGkOa NjenkIfTxONtRSWv2F2P EiY8C71Jua35HB6p2lxTyW95QU3n+0ewQtWQVRzABIBUsp5Mb0DBmQKreYpuR//3kGia8UGwFVHOUYj2 z7foaUbI2FL2Cj013w31 7EeEX2U91uAqeXrSK6ZGAJ7HFx0s51mfnrXVGp1/8zVn4qy2SQ8bto8bJBrahgQSyZoI5+gGCtMxtH4i rxBhkvxq0dsKWNV/4ED/ 6mPjLAs++D+k1zGr1B1geGJlVuDVIHSXTI2MYtfFDI67zCk87IMPsZQKnfi7s3E4briucnes1Tsn4Bv6 1MzF5gUxsHrkIqhUd9PU WPbV35fTmy33sFQBDVckNrbjHu9NeBb6uo/5dSf7HQMp5E8drAe0RqS21FYSGsmuUnvZNwtLRqT76dBF MKVEB9/8DLRf9Lr2+Agk 8oQQkajQa/Opp0ewUQIKs5jgkpSwVxf1znonv9ZhRhM6+qfX9omkGcKnPxpioR5+ciFn1PfwTmxKKv25 oWLd+3jJurZLoKJ3eaGz 4EzQlCnixi401WDDbq/JFAOUKnxxSQD1FL5SZdUy0YfpNiIqbt8eTom+cJgMJh/A//Y+PzYi2P8lyFJs mAwpQassDAYTKkBKywMB gIvqGlIw7IRLeSUlvUasIpkuJFNCFbNTbzPMuGvsZvGp6DCLxEGezGzvZcvrUFYDVtBXpnNQdBvaWfHv 8GUGrDCwmAwpQassDAYT GxDWxzGWuQcoSuZv3KPLyZLikJcfDyxuCDUTFvYZvdAKaYhdKwWx4GHNbCP+pn1nCwRpHRrHc/++OOnz ecm6s7zRha1e47u7+joK BKJ+qryhlQXrr2cYf/k9e33pJLF0cm9V7aFvuTsVsQ7Rct88oz5sbs680eb0w2lRw9DKWTj290GqrPRF dZmIvMm8DFY9616hdhxa 7HIJP1ru7/J4IEm8ooiKcxLz08IR7+1fuWkSFhJOSiHhskc1a7eSmPktso/KIkj75Lycjg+qR4+fPj/z OjSpcuuXbs+za6Tby2pB WKEaZe/4o005ybx//7nvB4ISZEGZTGAPJceS7iyevYcDZ7JnPnSJZ3jAbURT4AD0hEjV2JBq8990m/+o K8wmcLTu378Gaij9fVMG E+ePCkk/gSltfRHpw8kAJmFoBXTeIl8aKnMZlBhLL9dFf3OFFDH6eOSh5oNbr0QK6tQsIjMnaEBm3rUC Ot903Yew0E7/ZkzVSqV5 m6Dz3EILVTlfu1/8GqJl06h+XA1C4JJ/ipKLCr0VFXQ6PCjJgqj+rSjjNGR9ztyMQZIvOUvhzW20vKoM SW+CqDRFNh28cW1kwj45 07oA1CwAH7xEs0hgzvSEdWbvVGFO12zYufKzjck30fXn2b+1cUSnhalWqvUdd09+qcb90HSosnlGdsNN v8pZJVJ8Ldr2Hx0WPrbP v/46772N2D//v179+7oMQNoNtr249jNxJuK47ycOrk4tpEkeCt3+G1z7os1rlcHqUB/pRjGtVOq3aP38 pQKSlcK91CQTp+7bt26A mMkwWPsF26PKAhNYOoDqag7rG/f7HTLTLDn0xKDGczlI9xBsCkgawBQnSxIg3s3sVecLn2Viy1Zed0t0 mtIMOHDf3eaJwM129/z2 /dZgNzm58v73ng/DcjxA5p104YXPnq/PAzi7fm9R/Pbz58/VcR2skeqUW7obJyXdEPzhJfwwHVKtdM34 SjfHjlrqWa0xiYWUixf2 ICzQUgoDIuNNGgXlIMMJGgUQFzscfiXUv4uBLStd7RRmZnt/FjsdXKqVVXGcZbQymNf5xh3syJVAGURU FlZWQAwc+bMpKSkwhWWB PntCcXX6RTU44WwR0vpN7Ik3GgtFM62TNC6Ej52mSj11kWMiiPjd4ei6qxJQNyPLPWFmkn+99P3fmj3h 5wnUNCr5NqaUuGgGqTcj PztjuHDh/SfNVxEIZZf7skM3UrAhtAEq3hXqONZRVn1opXzEDSXLT2bpfTvOBsCeK67Tr3d/Pfz0jNbW 8aORmKGA213ahCnvqjot NJB7/gRIyAzJldI5Bp5TlsybMn6gDzm8vYvhHwYyx4bKCe9+/roE3NbToMv2TbkfNIcNVQRSZuwOf3Ns k2Sk7MI90DVhrYklXKh5 60kazLeMIHB5KT2VQQQu5NnlrFf1e+jc7hb7w6wEoDGtWvLydGlpt//cwtcVAiQKDAaPm4SoPq1vg4Jr Tt/++74NXnZQirI7uVOP 7HYBbVGIbkFP899v14El6RaQXlblMdac0a0WsRjtS0/v/wN9kE627mW5D+P4pIKg9Zzus59587NCh5s3 XkaqK5YUHYVRb7VTDbWN Fl+hrhhDsAVIVrAWskoWzMgl6lATP2W2LHtv2URzSaQfLCNQ5aZ6+PFy23j2g92laUopcqc01703qJXw QAAc+bMsThYUAtLIpFYH SusXr26+EgscxeYdbNjZdGKylFoOx2HZOp2prudynUqHyKbQM1skvrIF1ljP3cbsotORP1njpA5VSmr5 Llz+YtUoUKF/LP51EYdR RAV50TyCgKJB1qLmZ1y7HXaZ0Rlk9p02GvYQvLf2EcxDwMLoMdKnG/q4U7HAzwJdYrPWe2y8nq/+uqrn JycQhJ5+fJlMbNDCFnkC GDpedWYIc47Ah3txdIs1A7SwXLh2udTgPhzHqfrr2+ONfJS7hk0+vqacjRhNYUaNWoAAG8+L4TtIdhLr RRTGjBja9LpkvEEwAjn6 GWnQJJu7qt360TxK+4bgJFGg376JDsRA/4p1uDcU9018782n+/aMSn7WAYNivQrun9TSTSWVPGmuxfCQ SSXbw3rmUemIt616rimt Zx4QN2eMz8vEif2DhugYaMGfK630HogkHsgoKlkH48zFJ1FEiXdWXTvc181w5XjupMRDjYh498/++23c lFSPLuBXGFiItfqJV4i1 auJVmxeM43SL0DyWWFx2Sf9y+t3dn1h9fuWs9JsNb11AgPn+gIk3L4P1ymXIPi7YCL4mfHV3+Vk1ShgQ cDIlRh3TjRSJaEVVv19t iDiOrbi8TGpDjt2zzw7LpP36E/0oslwIGWypUhs9kcvcISG6xexTGdVJ72yHRrxCNR1T6U4QCKbWPWlp xQ4AQdmgZ/SokuIEKpfv e6T3zZVz6hXCVei+s9H4W+QyDKaNwRDCs1xslUDvca6Fi7d5mJt1xz+skYxc5YJXFLKju1k1s7l5Wdh5 ln47xPcmaK/ERQUZApat FnSW7w5e3k+49atW/bQYSc1rPlXz2YAiglcDpKEXmEXViW5uEyX03/Xhc5Xjtnj2E8QxmcrTjG3s0jR/ Gbnju7KfT01n+ePWJASx 5xhtCrq9giEaSJV4Hs4dhKd201RnStND5c5iPXaKn6YMwMh1jF41ntOUaf3ow2kQhW7nxk0luZLWIEZt /iqj2m077+/FYlEPj4+j g4S8fdL24muE1+syc/z58+vXLlichMHgJ9++vfi3sc4oku+/w9l946xeTy6DmjVfbz3+/pdZuZuIL2rH EtGqSlni6P3So2qmEc0o hsvnyGvJe2o3ucAfTTII0jd2Vt5sZR/pTUOdZ646q3+/uQhzfXjZwxdXg3pjzYvsfEIWq6s5x66aeYZS Y3NPcDDuGxwYVkvshUrC ffxLOESApKLxXh4S65yvkXSozJjfOMn1nw//vrr/XLhyG8QpcYg6qxE5EvwLoIDHbYsydszyHDc6lweG nVYPfjjGRUW8UtLRI2Wn XIyG97saw2rFBCGep93QNQIDb9rk31fvRlPuTwdJ+nRnMzFQe17rAPv3L/RmnFdUft8UeXBcCrGQxvZq XIsfKrBy0MLYhTFmhXus WeseJDWWZvXJlaQBqKcoHzPl5EXFdDRtuHwvKl/A55RS/c3j7ISTIHPDImANwLfBiMT></span>
</div>
<strong>Patient Name</strong>: <span class=clinicalNoteMacroWysiwyg id=[id number] macroname=PatientName spantype="macro title=#PatientName>ISAIAH MACIEL</span>
<strong>MRN</strong>: <span class=clinicalNoteMacroWysiwyg id=[id number] macroname=PatientMRN spantype=macro title=#PatientMRN&qu ot;>[id number]</span>
<strong>Date Of </strong>: <span class=&quo t;clinicalNoteMacrTaysestefania id=[id number] [...] which might be better tolerated</li></ol>
<span style=font-size:12px><span style=font-family:[place],Helvetica,sans-serif></span></span>
<span class=clinicalNoteSectionVisible id=[id number] internalbreaksection=false originalname=Med Onc Advanced Care Planning recognizeconcepts=true spantype=section suppressempty="false>Advanced Care Planning</span>
Not discussed at this visit.
<span class=clinicalNoteSectionVisible id=[id number] product management internship albreaksection=false originalname=Pain Plan This Visit recognizeconcepts=&qu ot;true spantype=section suppressempty=false>Pain Scale on Today's Visit</span>
<span class=clinicalNoteMacroWysiwyg id=[id number] macroname=PatientPainScale parameters=LookBackDays:0,ValueIfN ull:Not recorded on today spantype=macro title=#PatientPainScale(LookBackDay s:0,ValueIfNull:Not recorded on today's visit)>0</span>
<span class=& quot;clinicalNoteSectionVisible id=[id number] internalbreaksection=false originalname=Pain Plan This Visit recognizeconcepts=true spantype=section suppressempty=false>Pain Plan on Today's Visit</span>
<span [facility]NotAsc[facility] Hospitalys[facility] id=[id number]" macroname=PatientPainCarePlan parameters=LookBackDays:0,ShowComments:Yes,ValueIfNull:No pain plan indicated for today spantype=macro title=#PatientPainC arePlan(LookBackDays:0,ShowComments:Yes,ValueIfNull:No pain plan indicated for today's visit)">No pain plan indicated for today's visit</span>
<span class=clinicalNoteSectionVisible id=[id number] internalbreaksection=false" originalname=Smoking Status recognizeconcepts=true spantype=section suppressempty=false>Smoking Status</span>
<span [facility]="clinicalNotProMed[facility] HospitaloWysiwyg id=[id number] macroname=PatientSmokingStatus parameters=ValueIfNull:Not recorded spantype=macro title=&quo t;#PatientSmokingStatus(ValueIfNull:Not recorded)>Smoking Tobacco : Never smoker; Smokeless Tobacco : none found; Vaping : none found</span>
<hr><span class=clinicalNoteSectionVisible id=[id number] internalbreaksection=false originalname=Depression recognizeconcepts=true spantype=section suppressempty=false>Depression Screening Tool Status</span>
<span [facility]=clinicalNotA[facility] CentercroWysiwyg id=[id number] macroname="DepressionStatus parameters=ValueIfNull:Not screened on today spantype=macro title=#DepressionStatus(ValueIfNull:Not screened on today's visit.)>Was screened; Outcome positive: No; Screening Date: 06/18/2025; Screening Tool: MD-PHQ2; Total depression score: 0</span>

<span class=clinicalNoteSectionVisibl e id=[id number] internalbreaksection=false originalname =History of Present Illness recognizeconcepts=true spantype=section" suppressempty=false>History of Present Illness</span>
<span style=font- size:12px><span style=font-family:[place],Helvetica,sans-serif><ol> <li>Patient reported that she has been anemic [...] has heavy bleeding. She has consulted with head of loss prevention in the past, however unable totolerate oral [...]
</li> <li>GERD
</li> <li>IPMN
</li></ol>
<span style=font-size:12px><span style=font-family:[place],Helvetica,sans-serif></span></span>
<span class=clinicalNoteSectionVisible id=[id number] internalbreaksection=false originalname=Medications recognizeconcepts=true spantype=section [...] History</span>
{ }

<span style=font- size:12px><span style=f ont-family:[place],Helvetica,sans-serif></span></span>
<span class=&q uot;clinicalNoteSectionVisible id=[id number] internalbreaksection="false originalname=Social History recognizeconcepts=true spantype="section suppressempty=false>Social History</span>
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

<span style=font-size:12px><span style=font-family:[place],Helvetica,sans-serif></span></span><span cl ass=clinicalNoteSectionVisible id=[id number] internalbreaksec tion=false originalname=Vital Signs [...] suppressempty=false>Performance Status ECOG or Karnofsky</span>
ECOG: <span class=clinicalNotSonomamattioWysiwyg id=&quot ;[id number] macroname=ECOGStatus parameters=ValueIfNull:Not santhosh rded spantype=macro [...] originalname=Genetics/Molecular/Biomarkers recognizeconcepts=true span type=section suppressempty=false>Genetics/Molecular/Biomarkers</span&g t;
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
<span class=clinicalNoteSectionInvisible id=[id number] internalbreaksection=false originalname=Additional Labs, Imaging and Other Studies" recognizeconcepts=true spantype=section suppressempty=true>Additional Labs, Imaging, and Other Studies</span>

<span class= clinicalNoteSectionVisible id=[id number] internalbreaksection= false originalname=Laboratory Results recognizeconcepts=true spantype= section suppressempty=false>Lab Results</span>
<span cl ass=clinicalNotA[facility] CentercroWysiwyg id=[id number] macroname=Recen tLabResultsTable parameters=OptionalFlowsheetCategory:CBC,Label:CBC spantype="macro title=#RecentLabResultsTable(OptionalFlowsheetCategory:CBC,Label:CBC)>CB C<table [...]
<span class=clinicalNoteMacroWysiwyg id=[id number] mac roname=RecentLabResultsTable parameters=OptionalFlowsheetCategory:Chemistries,Label:Chemistries spantype=macro title=#RecentLabResultsTable(OptionalB[facility] ategory:Chemistries,Label:Chemistries)>Chemistries<table border=1 style=&quo t;width:100%> <tbody> <tr> [...] <td>
</td> <td>113.6</td> </tr> </tbody></table></span>
<span class=clinicalNoteMacroWysmercy[facility] id=[id number] macroname =RecentLabResultsTable parameters=OptionalFlowsheetCategory:Tumor Markers,Label:Tumor Markers spantype=macro title=#RecentLabResultsTable(OptionalFlowsheetCategory:Tumor Markers,Label:Tumor Markers)></span>
<span class=clinicalNoteMacroWysmercyone [facility]inton medical center id=[id number] macroname=RecentLabResultsTable" parameters=OptionalFlowsheetCategory:Immunochemistries spantype=macro title=#RecentLabResultsTable(OptionalFlowsheetCategory:Immunochemistries)>&nbs p; </span>
<span class=clinicalNoteMacrysmercyone clinton medical [facility] id=&qu ot;macro_[id number] macroname=RecentLabResultsTable parameters=Optiona lFlowsheetCategory:AnemiaLabs [...] style=text-align:center><span class=clinicalNoteMacroWysiwyg id=[id number] macroname=&quo t;PracticeLetterhead spantype=macro title=#PracticeLetterhead><img src=data:image/png;base64,tPMOEg4FMmfIZIBOUIxTAjUWNKPLUXEhPTCKLIS8Sx+UAAAACXBIW GQRBG0DQVHNy TFOLb0fIKCCjdsPFIYGIGz1N18yYuAxo3TiPzamrIQZHJINLJ82bKVcv6N5NQUiH3ifFHPec34dPRjmA NUFJM3sUQKHEMswIBfnN GC8FeCanotwALTaQa2cBAf6lR8nrHY3LBR2rNzersh1QOMnHU3fNYlnjtmeFIRmHrZoaAc0hUX4mg7oU UYyDyZfMW2LSJBmdaLqQ h3aTANyKXJuOelzOWF0EYQ0QBW1AMOpPLXrHhH2JgMnDQYnDdInVdLjEMWuCHKxZXUyBeT7lqKaIdSHU jS9dPugvyukAQL0Rqo1f JD8As70k8qfbyRhi0VvLfF8GMomWBIdZcGjowBpWDB8gyJzyM6ugfEvAfE8ojMmAnTqh6TzzVF1jG8cC TLuDcmwYx17hN4zGaU7i Onurmk2yWB9Kxc9bGO0Ud0riu8pNA7tBX8rq76vqDDaIkHaOU6nWRrvsU2iDsRwWFHntUSfMr4ytPPst D9vyuqjVZUpGLdkaQNwy HSwJJ4xRsPurW0nhdK2lSvebD7mjR9vNIZvaRAuEv4eegAbMTVcTzUyD67tW9Vck1Tsf1ailC1kJvXzS xK0cNwfeta6jBOTUL2ve IZ7sKbjK57uIkHxn2UiOtImjR86IIQgDJ7fU65aPtAfnE3gmdS0y2ZRxvP6Mqz4cAG7Mr0ehq4lEK0rW I8ut62qqBJxHiBfTQ3rQ CixJX9QWJMlbFLgKGF3XZ54IrTyuO6tRrHzPRW5c2OPb37lQSVYRG0rGAQWmE27m5Aiu9NfRqMpHNJpX PHvyW51e7SwYIDhiK9aV sBeQPZ4LUMvsMQ2ZcArIuYzWHTuObuAOJY3Nbn7CnZpLBH0PYUfCXjxbClHx7ZsUueZDPLwSVCmDRBzD PGoTOO5BEIuYfYyNQU1Y nMsXrP3rSQ3VJM9OYBufGEECFIiRPImKWIiWRGiHPK8HNXjDjGxAPR5DfIwMoKrNgbxy9JrSTE1DtztJ SoqP5RgOtPnrNgudD2eo Y8hPsOyrT7sKJ5dSK2sVqWnyJ5sAW65NT3dkXBtX5HFLT9noJ9yGmpkNXd1ZHZgMvTyVM5lEOOsQPT2F swmZNd2PB71FaS0SCLmA sCfGTQrUZocaG6KSoExG5NcAH24YLM1WcliwS9uuAD1VEDqMgIwHTDmMkcmOx99YYY6WOn3YrnoLWMqM lDbC8B3NIFxBoY0iHSVY NnEtavynE2qkKQmE5ZnGH79BSB3WbmkaR8ouSD6JKBsAmMgEGGnGxncVp25WTS9DCd8SiyxXJQbHrSbB 1M8HJUlZy7lJUShd8Eel 7nepEcWc8M8vKXysFSjW5VqtP4hkh7iGOEjKteGZGh+GQbuNEQ6yKg+wU7qYzPtJPa7IwH1C4D7RHDmD QWoONR8JXCqExwDAFQ4W zTMMmAfZAjjguHnZendNfW8N5LnMuvOIAj+TDeesEwdfU7upZ4jJuCvL6ZjXC45WP1cHLP1y4WcHrR9x G9lFU98QYeadP1exF1vT HJkZjpTZXE+ZYawGQI1wIzru6LUefD2KYC3sB1iFZAeqhIcaPYpCfDddTN1yLozstB5OO2kBOoGZNM7c MDevRhzDxgaAkTlWOS1B PZ7NSVaOCEaIS46XHv7TAGyVHyyNZVdIAU8WiGan1HFjaF7c4cjij3gIjYaGa9wTS7tS6BeMMblJKltW F3dXjmkCCUon5ERaoW8n 46klTyaesRJE0YvbY6bDXReJfVpWVgexU2uxN4zXYWvGmWdWK8xT7bkiJ2ohUccGn4lTS7uDTH9D0PoU qC3N3mipC6ZFfmoh8Bsk nk+PUbsctJoCoEuy2YhlKY9uG5lZqM9B5MhXaeGRGC+UStdwAm5wUCjSOBqIcO9C2ybHXTcWQBjXE7lE SJyIj8+jeE2ZZKAPmIGF EFUeJztnXVgFEcXwN/K+tH2vJP4BDAuyhKXZp/nLUEtkFkqXKRlRhncfd8GRSeaCPWxUWqfT0td/HZ3v o5JmcasNgOCteQ/uz92d 97Izu6+oRegIrNiVZVaQUyiDEFtdUv7DRgSRbUliTUhNVhIrHPPsFScWMzrJGtrJWFWkmUJB1WFmYggr eKlRNEVjXThUJuhgS9qK mD+B3UEdBv/lxaAnDnV5eVCmfYPq1qETD8izj79QEthdKBLu/yoxT8rXE7LJqQj9epYTs8f7jl7NCHvQ FRMOrLLwsWjjgPXnt6h/ aWuGkImCGlQZVQ3fMwG02x4e+snsAmQG2F7PUp4FtTW4bCPlm3UJNAqGEILnTgCjBdC0jtRZpvjSej7f XHZEfbq6pZQJGufZq7Q5 9DOSy74K6CKiokNjk3y23tlOyBtymEI5xOGWUNKOn7IAcQaHZjVzGIHj+LEEumob7+Z+pAPVI8fJZcWC znFy3Le+jHqH2Qit5RSt 3zd+8ef/VqE2EhLvUDaouJZUWEzIDSONGVkzzb16/oLf/5BkMSEiRPH//FAcFMtJ2qCChwbyho+9bpXj +5cbLphCu9t04G5QfIG3 8XHMNHKeWsyCXa2iKhAZOk6bjX3nZ87fx6ZqwU4C7EQL/SzmDgw24//P29qJKlJrW0S6phUgvZwwptBL JYxt7gckg31lwnIHg913 qS/v/3gTKjohvPYZDhqSXWpUD0Ymq3dPSp1taQnnJlkvn4uklPdfW+/v7//dFNngs6rCR+48+vAu8zwi 4QGlbm2xLmsD+zetnvJn EaNm/izzZgcXiHJbfcwJtiNWANix4yRwP3MKeZ0/JGSBe7U+g7E02WDOrXiYynXm4UWx3ssejX9BjDSS TAYDAYDQRAkSRIAHMdxC Wn7BOgLLekHSj5AF9sBY58gAWZm8kOQi/gioKGwLqtibB8CFbi5uBBtdbh+tnxP2MzHUAgRZRPnPWeyR S4RYfZRVyHVPmafH7FUo If2n+3EMf9+cOqG2zgib31stYOtmm4Dk0Dv8DvQejzGy4Ew66G/qzOvMt4aKJxtUUgidJo9/6sdpf8Pf Oxy6xJu+5EcvxUKB0suF pOkKYNWm/+HLguGOU5lsp76/+U4D6dHmw4HXSA8FEoqFeZnt47Wu4U5vhVWJvAFqey0+IjPSc71pjwyI swjGcZOCKTrYce3Fmj1b buXSIVg/l5hfOD6A8nzh4213hCDVseYMAwJKs0rsuu0jb15rcORbMkvQMJjJJZGF3AeV8vM9EffgYgHd RbpEXWFlNTWHnJiZ7svf 9MJbUba2rU8aZOaQzf9qxWr1UN9p197owJN0SdjqIl2tBk74FY2lu34o+Cl3TGtu/9+QvT29eg65y371 n7Sy3FzbXMpd9/fth1/e Le8vI68yNrdSZkLUuvrALdC+/m3iJo0hxogi7wDgtGYFfapzioQzOzN2wynesC2ELgjdZZMTTa3iLYlU qJEoowmtOYGoIVr4IqSJ +GP+o4e6+gk0yDLSgzxbYmTjnT7tW4gTc1Qmqt37dxMoyoWl7oP7Uu9vlUg3U9cLi1riAnBvlQh4O10k wqDU1ZOZHCBgodzVZVu2 XzLeFUoW+7SxYsFicXHx/u9zHhr8DdyYZvhUv4gQMi57ruJ1vrDveqJMxtAEiqk06CapdfqJXPrHttfK N6PlTEgLNu226UPXVwsu 74C5KXyLzO4huIAs3r6b6Yx2ju9EflY+W+AFRYGIYS+GTmqnI+di8vszG5Qvb+K6DcNHjVQ1HZBivgPb Q0CXgG9vWiWd9+nt5u9Q 8nvuK6gc3NXzGGsJpps027mR+jQvudgHdYLspX75BtiVf2kOLdeoGwV+a+Vx0uBGGXdUcj0hubBmlAhF s956G4RkIAdQAlkmGXur s1gtQ3Csi3mRMcMm4vYFETCYlYOyLq6AHOjVfNRkIo554+HRz9+OOOUOq6aG3FL4le2JgIeEOKb3P4Q0 46ZXorB1V77M7FLSPRAY wZLVnI40EMAR48qbcqI5vqIwzpDpSAiXeLmn26sjo5csutAyZ53JwC0NbpRof4Ihz5eDkSq8f4cq7xmZ P7qSNJ33mcWv6fFDvr6E uzqteKfFOY/DWACMBs28Rjjv31sa17RiREEbQ0bXDdK4bhiQ/4gvV4/i59iEQEXHa1Kc9KqX+9Iq1FH/ 8K73MQkLREn8xqTVRbir 783r1/nj1i/FRWCHPqRwTlpMHFLlEAe1OTjy5Ulo34OjC/R/MLBCgsDqSmpDMPUq1+pSUxi2In46rZuR qePuiUGOig5t5xH+/Vfu TdWaaf2m9m4IwLFeIvcNxlVRo4YKMLeDs2a3OS0/oxka01pZ0+0ZRAPNqS7gEIoaBXPr6kETrm7wwHVP yNEoN5a7WO5ZRJiAIH66 JUnHPpBpiaSqIWEMEkmQk41Xd0+/jNr9hXAzah2ilwqxIDzai4ir08SbX9MLh4+7Idk875QSsHbokgCS KFGI+Z2VILFFUYgOmOBe SeLBFdm0MZDu2eHAer6o8y5rVp4jZzkITWllPYFtky3ft92GxhyNy9agm2jily7lTrpVOhpyZqaHtdGe z9xfWD+vWCFhQGKokiSt HdwBACTHzFB/MObEtCW2yn+gaBRE1tcbe1KIghswXvTipMIALqhKDbH1MDn7pKT9lVSvjRemiqX0KSIW ARAAAGERqPRaNSqPGWeU zpLWMY9ylAeWDtDcWHPcdqHxmUU0t3N2kq+2CoYQMy0dYLgzfPj0PVaiVvyo7hWoTQmQocNwN/wRYMVF lj3ZyqbNbaJxLEwd6KsS 75y+sDey9qfBe3jIKutkX1Uex7j5zLkXbjZITa5AyzanPcLzbohkjNnSuPfRdRYDJnjbha7pvv99azR0 3spCERXB4Iiev2VuPbnO +4/zYodLkfl6Lt0d79pIzva4tyHBSNDfSHOxGkTQVSJyNMi/DK7kVv1iuYFBbmpPODAm0kWZP5MKIkmC 0+oRp1n5N1gv9Fpavvjr 8PGje/izBjurMCqz2qFRveakPlcj/AIKl/Bf+N7yBYzSMTiSRMN02v0I8IwdL35n/y5e+S1Pe7vR+rnI 46ghrYTTV0c8i554OiJg nURUTOAyuaiUcTa6klq7xh74UFon1fxNkdIRnR8qNKG2rsGFKRMtYBnxptVeEzDC50+vhzLpqalxyckb t2y5fD+/S/jXpbxKtOle /tpGa5rGMby3MxeL9iHkxkyeZiEIEct1ow5KN8/JN9WY7kC2/PMOKiHeCZBUIz8NVRG587wCXr47fXgB 5bCfcuWdDtXrsFXunW/U z36/T2ucn53127/f/ZsyJmzi+eEX851llu15TyYEg7k3ScHbLoTcorV3ShlWym/idY2YDZLOE+io8t6+ aRs9rBeoIvqrqaN5tadu 37Q8rdv7R9++lgHM7uY4lB4KFPVTO6FbPQ1vh4QVyECoPKDjLyW/xsNXmziR6i+ed5KWLw46QSafuOyI gpcHZymTZuBEGIRQghl5 OlAGIdok7wtE8m5CdpvAw1gr/cr+/m92LBQEFu/EtiFtKBr88/MWT0sX5H4bwPUNnb813EJIjpOY1jFF ZYzPVTcE69NtQAmbV1xW vu5i+xhtpmr2tmQl7lY0pZO5y2NnhxUAN3JtqywEIxEMkp0oLavg3ZckwzA4+luavMOdfIIAxE9Brx93 tCl8+8qc1Tc1RFp4fOPR B1IQ3hfhb5iKP6WVJWPUvNjBDFSyfdKMuVbZFQgxQgzDj6ifOoJrm46sxxuYBrJBJXRiORrDytPXT5YS /yyTHwca5KUg1qQqy9Y2 BsrTdt3S55q9g5kM/CiROLCzfZbRkw4WIw57XrQbnmLkEom3ji8b1Ib6aiHqDgBDtdGud6lGdd9kIF8P l492rfUyi17hZjGnKz7p ZkvFjxI/OVy/809zz61lBtoxtooMj6EzrbPT7ah856LuTxvHYW/O6KwVUYmlpd1kb1dkxSYN/62fauLm 5gY41zCn/0NRtbAwuxFC olB639yCEuHB1gDDnekb6I1V6IWVI6lRz0Lf4wU8Rm5qzJ745uOr0fXSYDhjz9vGMoVwgYtlP+UWzdvD f5cWKe32tmv+hqR8siX1 o2bTgkdD7e4SZXPGIXo/gMmjYZAXjKSc9j3o2irgCeSi3xyCMNhd7S+8f1Ed8DRRB3Szgxbc2KopWja5 SiyFUAC+97V0FHMwAXjT pmlHAGdHzmAMgzY2NiJr4fjDMD6faVbCHLEXiIixO+KkPsgs6jSycdZzzixn+8AfbnDKMl2Uare+NbV0 QfUi0uJbGRQ/wsEZPyrV 7sg5XU0tubKxH2NBP7tFjAj4V//QZG9rcYXXttjquhhiQviy5HzImwQJJFtDFDqkEfAfCKRNAj5IaUge Oam70M5iW0MEqHUj4fCo d+4wzNoXtB2dTnouuNkN2lWaPOP9EgQQyWnVnKIc6TQj4Ya1ewqukdLKJdPQ3Yu6JWzGOeBWov4U5ENE 01Obt2+K6uScWE2Kq1qA /sebVWXY6na449kJPl8dBkQiXdfBGSYJzPZ6Hh7Gx3+IvN8WpgFv3CGkALa27b2R9rq4jv30b6BUt055 3QWQenhs1JR9eaWzx+Xv 1z9KyA61aL+X0ViKHqTWKV2MyqkijTwvaErA+8BBTuwjCyQWBUsqi9+Nvi4CYCSRUh6JuT33p/3BK39d RkYGheOauZ32MECyfFw0 uufkgAXOHoYos2S8gCZo38Wl6RHNaHjVqA6XRPpkL5pfAwS6Kij3HKnXgwwdE7a2pVxC+kof7MejhQ14 keGRrfBy6duFRaauHD7+ 3pd+3aZnCuju44SMVvijkAXWh3QlPyMP2oQAAErd13zuRJmVs9YODNScINGS/Veau2UTgiAGaVzDkr9g e/XwPVKwic2ds4Ea3Lpz G2RCPibgUI/4NMAhfNJOc89yNGiSyV0eRrng+LtqZGAfC2qtHR06tiY5+vc2BDmyiJgpDkXLtS9j4sFv jIRfp4yr/b0QN+NzmMZQ iyR/ONiJxDl1RUpdwuMmGLzTpvO0O6rbp08jmJXpb3CgosFgov3GdKFehd2F1YECz0Fq059B/8PxGQ8y +8+kcKGPD1uRIkTGvxF0 64LxdGJ42qoiqDgxOASfTaVUpb6x1fLXmJYA/lp78GUkfsHc37h8y5udPJhhMcmWHMkJvHu0hHiEAgEH hEiaLEILZyvCLvuvHbJr fscQgYWzTODetqTtrSQhoZmk2oaUjqd8Vmbic9zR90ryXua4oDT8mOexBkJIj9k8JnRS1LUMaBaMqZBN j4uzRpAuUZ2Se4WgLHGz 0Q6atF6v1tmzTyo2c/0Xjk9CaXu7XvBBTLQfhABFP8o+sJhNMjqdjeIgswCEbGgcN1Cbjk3fRIcNghvG LoLTCYtXDYDs9XGkPqX4 48qHSXeB5KbF2ouZH4QqMC+OOEQdO1hIbaowhsQOkXyWxxRHIWyt4xdiRpUSGiRjxSyrf3qUPETQ5B0B p91E4GS/yz6q/O1wNdmu TT5KnyyKluT3gO4fBjDbaOP30k8/8E6i3A1goLXPSSzoP4L9fO+ZwCSSRPtEMMwDNWdDWrkw8BKTskT3 2LWJuq51zTDnGyxOfFJA VkYomY9xb2ewbjS7M8pptidBPDCHEVRiyD2Ep7UUmNRPL8DZTLVXUvyFB4TjObMdsC8AEf3X3la5zAth esDQRk6UBGPuZwYNGFSq 7Tb4Ckz5NlVbzdQvSWceiMzvv8yPDkqErih6y4qDweOMQnm8Hm2UuPOOA612NhVD54KIneXdn2MybqNd zNS+fPyLONZcpWK+axgh aVOFDwBD7RrKBZUUeGxfTwloqUK71SPU8L1497IB2a1GB/j62++frsEJs9jIXlyxcMgadtXiAFHLNiVe nQFD1k80Aofco5rXzsEX Banh6LwjFj6G58DBrQZSgRBEtgdk9OQwAkZVUKgF4efnsnbvpAC34zvN0vZOS2aykFsNYgomdL5G/YQY gImjNSm7PjRQi4Hk8PTt 36pNs71VlNhmuEG+ed+V4hA35u9c/V52CJ7pK9Ko0ETXT/PkTuWcas/Mde6p81W573nNJ+tfz7tgOLhX f5fftzlrWHAKvnvbMOtG w3pIJ3xVrInNuhtS0r50zg5vyaQImYkKhsUQhyB5JtkUCFc+KTtNmiOesJQPBaKk9YZ6D9no87CAWtoC frM81DIRKcDhSoGOX4Id BmXLO60m75QXXTzrvF94Ea9m7us0X7FQKPdxLLY/swW7YbbH4nUEVZszpiaBuJJshk4CBZ6ZDRrXvSd8 iQjQP74v+Pp+BPiTT2qa HEXvoXZu8VjTA4tYXB/OM6UOs1Gp9WTivy4DQnVBqHnNSCp7akrsH/4kywAm4AaOBHJcieu4y5eb40oi UqiWBbwHQx046GA5+Tl9 VAQinltBUJx+gcLEPk9B1SZ1+9t1jMr8XWIuD8RHMK9wHBz7wKXo90mFy/XpRE3TKPdtTEXVCTv2yzUW xe5EbzeNBFQBP5KaPIu/ Zq1rdl/JIFQbPRjtVpPUJZmr7//0dPIYz8VYnHx2s34A8VhYx8q5tpFhcDQRwqm/ct44HE6abcqlE2Vj IMLLf5SV256mdWei98Dk AcgT8Y1rTT+L1ikpPeFRTI/BtJpovcggrgdSx2WVlOfcIPgFqUagW76q4xHaDezn5TMqtTyiXczb4Any 7Of/8QvQ3hUGLDJKUCYK NA/WEbHLlIUx6FEsS4znM9OStwprmWiomdVAmGQSdTgEZH0+Wcg5Zu05d93B88RkC4HaCr+zr1SoUmjA a3nse0fC5d8wGUS8eoVT Qroe319e+G2uiPaN5h/Gudwq5sPkSuuyr1iWSp8vXuDCT4zKXLORTZELxN3z3IxULCwv6VYo0rjEdIOX 9TKvMojXidyWK88Ng43L iWQ5x6QcpEgHp/4Z4d6wzHumYm6r8zoSUToS835vUz7BsOh27gAynvwyMsP34fCc8z/fThMsasnk3Si2 v3jv4u1TsRdKzzzCMVfN 0giWW8Ga47JXlnROvYs2KG781A9l/NJ4MJgY0pgundG7Gq/022FZCmXLx7Dssj9xK5C1uVHUhj3gv4/R 1nJISbgjQJVcvK9dqijP akKfiMa6Lwo4py3lvxhkBlgvRyCJ6lHNXPNroL1iVlBvstv695n79yuCND5/ctLebKTUL9AOxPTDVFzg 9BrvhKf3N0YMgrnw8i44 +RYZT022gOgzLvRDUQkPcJfbYLkETz3qtW0049VOFpuK0ol0tUs6O7lj6GpmRZmI1XXYNuXvOmmmKqwc EisTktiMlJGjxu/88/dP r6+QN67yHBHP9032jvowHpQyiG49+ev3JrdQWvyFjlmw3bggsUh5FH9Z4HayXZEUL7sw4XzqMOMzU+q6 ZgmhixDmxGK8366SOm3a SAB0nUla7BPgumhj7DlGQe69HWhsZSnkA51xHy31nOx0nrAYOvTZ1RNZPYogrgJuJbk/njgqYLYFc1F6 N+Nn/G03HDoaijbyOLnu AZXp5Fo6FlzfleNSROcZQ23/MBL4VMU7cNRPnXLk4pCCZA08Fpf1E951FCjc4x0cG4gcSIkQrPeAZl5j y+wPiAcLbrClnhma3OgC lhjuGivU0v4ab03Wzr0qelrX1r1kANmzwWIQ5ZUgaO06WecNfsIWyEBqA9ok5aOmLb2ARLnldG1vFMYs DUFhMNsJhUP9Fzm1M35s 9clefsLuqokvUki2Litc5Gw2apXHJiKToxHNx9cQaBWYGAa8v1qtn7IBQz+MFaoontaV6VjNKDzK9DkL UI4ffPW07oL+q9dhyDNg boh3+YHxADsPxZjmydmR75yF4y/zXwvryd4EMqT0tAk2BC1f4M43uisvFEmL31NE8/CWsCUBrDCwkBiQ gJBkpxYqtFpxBWr+1YOd Eh0NGoa8goxzLbDfcNIvzL0CuSLTgTyQ9dNt6lML20tB1L65/sxjr//LXGIwpDxiraGUzqhd4vCKGZzP 5HgfwRJkkKx+F0Jq9siZ WR0mZt+0/M7wntcPD5eChDwsOftfYK+TW5YBSVYrrUuPenRjwfyPCPYs8CZvE1xRhIONVQf7Zu1eD1rC pVcVWFKGKywMJCTkwMAR hTbq7O4OXIEHZnHr+vo01ruWamWBonoVplr5tYGYbF1/PuStOhv2kPDcmE3zyGBa0L0Oz6FfMS37f7OA QKVcMEEHESs1lpj6CBAj azRaDQaGIM+6vjFzsEAWOhp9Jx2dYyr42uLzGUVCtHOJKFEI3Lsjp0lLUgk9OI8FzAvucTiRiPXpJ0hW GQGGWoTRz0LuxLWmglLU YmX3ivPUsATK7JH33pg6fsjTHIBcIah9Ga1Vwm+bmhFci9U1IH/FqDzrnjc1F9hMSBBBjW7EiPp7c70/ rTfbNuQT2ZBjEsGMgSBF qUlRRWzPKdhGfsNzhrcBpFBcRh1QiGqlBBC5Xtzv4adAUq7j8GCn6QC+CqKHPhxQeYTQYe4K+0hjmEQQ iyyvaXawTVlXc8SLVRIU JPNNBcdaOhxloA3mhwqIHQD4UFZXiPGetTKkXqwcgs6OssYgcRwdiueSDsTtbHrBH3s1796e7yvsAfmV qrrMhUkywBBACAAApycu MTKTTvjnRHlCMWsLlp6P+jkNWhRip2ScsQlKJ31V/cgnYaoXkfFckijfpc1/ROTgEmzWdyDB79iNcdyb V80+JHirY6OLnFwSa6oJ M01B5ymfppBowHwSxExdr83B/wJQGamVzM3eIUVa5tMIaVaCJN/Kg5dbii4ys6xrUDfc1bEAittLODAd LSQYrqViQKk3BBm6LVzs d2KQtfHR3VrCWOoT8e9BQq0OWx8lbz8PbF3WVkpPFHsZsA0hIMbbq1rjbwt8Ktp3jlBMYmzK+tHCATGp xHqHAWIpcCyYNHGAQRCA JqnQ0ymeaZtICfGePHidWeKTECuTOvahLi9G6lWehYZauC3bmcgbnWDhbgn97oGl7lUpQPMTMSmcSL4S 0sWGhafePMMZdeg5SfWA OiOJusYnwaz2a3OCBE4EPl3h1uDm7MtWsA27leA/KlRYsqXBOL8xOYW2ezx8ViHmi8UOvYMfLmVNYJGP VGjrsTGjrkdqmscDGbru wObQM2KyZxAJ4zTB2mTsRMgrO4iim8q76mI8+/SosAq+hSvf8wUR74P/fRvRQtBqxJy2Y1MroMz4VCfh iY4/QmjMuEFtWVsNZ0fj BYIMLB5SlM/S31g/q7aaWXPsQrPym6b3Ahm0Pm7weBKrJgUHXfLnmOj4nCBE9grjEZDLM72VEHSTiuLN 0GKeLFnzob5/Zf8I1a3r 3+vGhmW1wxlKd36vzJ3zFuBi6G5c1qOGATdecp2jZDxs09+FaPXAfu++UxFHUPiSKbGn6V98VkL+nWLr z95XWD+7tC9sPkBa+U9e /VEAqEg+xB972w2a8gBEyRksi4dCrEjFIE/B7sdAy8mmLSv09ZEbVCuw8DRfkRbJcyFjCQoSTIo4Zuov zRbQV4lemTM3luCTvwg2 rp4uHLgWg20MFKH4ltZpIU+OxK88sfbh2Ni6FG8Qxk/7nZp4btRiWaGMEhw4uxSDGPqSV/Rz1SoATgYx ZOlvt2qHsNguitc9cReP GVOPA6HPsr3IvFWfYd09io2v5n33RURYjebUmvCWVpRxGiI7sz20+lod30JtyE1bHEYPghwsnwDOlUmG /9pe/ugev3ruD08k08hF QziDHEXQYcCBeSe7vnQPRLmYpmXGBma+8KubxzXyBmvMkd09rZND8T2HLhYGVUip9Yo/trs0aBTXYTJQ MVpWePKQ97oJJ21+UT88 ojUsnrv6C2dVSnjmnDniG5kTxvky1tPba1hFarAcI7+43Rsu+aN68OUonwkfto1Qtp7/j0aKssKFzvEY sOPc39WLsSpb+Z+mF34W VzNQSZDHa5DTO3DKhYc+38YTifAjy1EgLXJZVWVBGf7NQYDXrpuMnUG9qQOCSWBBcS//wSyg66aFNpTf of4RJ/QmOTHmeg1UI6nG I1aQ+k0dKAmyj4UQmleotrGLuJNzAGif1LozapblKBF4BH4oN/uCxPikFCkqRykbBKsqtkQyWxArwPT1 EKCAKEYOEbyIso2/Iz8Q Fqzl2Q5waYFQkMLzbPsf6N/x7ea2kv0xz5KYlWrPQfsJPN1rh4LtgAPTbDRzij7wLcMq/FSyBgArLAwF kQ/frz0l1+mp25RgmTLT kGOYQamnvZIwmhQDERwPgLPfWZiOm9ZIZi7FbyxiwZIYZVZcf6SJsOGbWEUKVLGBdZAdCG3Lhadwxath nXrEJCpOnbSK1aI6h8L5 XNReTj2fFXFRaORcLNWOQoS+Hn8Gnmhe63iZ9/2ghU3Y2AZB6HNdImQYcq/TkBeLUYabxXeYS9tXRJQi BB8s1sbiRlTpz75wjnaN lbX8dxbkMBzVGUItomQxIUQ7YIQyDbZ4TWd4sl7bbEqvjeEuIac9AYfasuCMBHEoxrjTAiIp2taszl11 snB3An6+tPFlBqwwsIUi DBpGB2Bi1kC2Ba9ZTdk9Mj8FXp0CWvBeqCzq36D2wLjTObPHS9l0zMM7QenoNnQCTBrM+fJI26M/mHix VbZWKNIFJjQXeBNIu8JR BUcnSLmaNS3iLdRZwVzeODnpVjqa/++/FeDt3/y9/MYF0/QaYqIQAsAIdfdq+iMEyFv0WQ54a4LaaZbm QLw2aRuZCxBarCsY0YYH T17Wu/tif4ycu4hRYe4kFOCPKbKXVWyU2Vdw7cup7esiPs9Htgl3iPr1VbGNaNgzSA5sXUG5oTFJgKr1 +SF7jxJEPYbmcNgPXWEu QxcKpiOVSSHwuClXEX2lY5rLnr3ern1j1g+Tkn96IIxU2OLoeZE7s+XlzqeM7opzkXkkPWnlIDJE1+rr RRodHTjJFLCYKCVCvGrZ 2Ck65Z4SRRIgr6+e6axftDCbUWvXuu9poOX8c+i1+t/NbK1ko2/VUHIZTbMEWiZPMkQTKcAie4AMDelq UDQqHHjeQsW+heeV7PlO h6ssDD/DZoj0Dh9+5virNODFa79feDLMVqFWbqLYXndXG/snStNu33G/X7yriI2d8w6/vIk3Dcjmy0V5 zlUJEQpV085sw7qLPXLC wPE/SDouCCOMUxDpJnRvBWPNOlcMHWCRjUGGSbGmvMIRDYCwah5UBATlSNVMPcxBEPRWrCAAXzNjdSIJ ZWFyhm6IMYWtSQJAOfoZ MDAIcYKMZqLdmEITSNKfdj53U4/Y/2dIFpd0+bSIiAXlYrvPeiAI6Id02CqL0gxkmYtw8EoGQaNh4Np5 pt30wz5+/wHM1UMxOiuW VWqpM0XKYRS5GC0iEiFPhzupZDGQVWnc9fC+c/c8M44lqff6xw5J2vHvmzyJY3LROLYts9IrQx0uh0zN Bm6YzTku453cqGWpyw9v HzwKu5cidj2csjqrCfb3sIgq0uP2+lZNd65dYFs3iSmkDclyQq6iIvNGEO2h1n0mOl56YGTLn+znm047 g9Iw8sQTDWkYyKL7zfaN c4d1fd9n6Fd0PfTS566xbn5T93SWWl0CSOnx3zmRQFHom6CIeKkEn18gytQYNZgFgYUz0QdzOwzSPnF3 HvggEgk+jslxvyHSUxMn Fr26pLDoaVx9bPup0dNTJaCEbTebWelurVyZr3HsYoOA44iq2BwjV/fRpqlMCbD8O2nfHKRk7p0CEmNu MPDdzAi7PHaWn0TAV9rc sLaClMQ9+4h91zb4+GEznlJDQnz3CzjcbkcCiLQHZ9bRz755TqDUnD7+PV+nyvsv6ooganGSuOZw6RT3 wRAiq2f1gZG7k852DXXZ 8SHM/V6/ZGDh/zK+efs5t6yiw0wOLa/x3aVmPZBs9nruBCN8R++6dS5c+Hyo7/4cnVRAbTMuj8+esSI6 ZdBJ7aqLWKWiPWJ3VwnY 96/Q6eO/K2iMwKIujhFx8FlidBeMoqnUqwBv3BL8UDfrLZamoXjoJhdMTeQgRyKOx+PHVOcWFOmTeO/a J+bm/vj+KrwaUhPs1ID1 TGkBi2zf/7ufugb9h71bEjv93H53XTQ55HC4AqyEg6msMN/Ln/z+g2/3X/tMVyOZgqQ2g2ytE2k88nql XG/r/gqK0ZK80/hA5o8W d31XiOC8puQc7J5GiHgs4lr7MTLbODDvEc/e/RkTlTc8rf0Us6sOh5xRiJmeCcNHcL7qYNTdQRUQYKIe Wovb8kbCs08oI7eLji5v DlZIQp3gjBJ7vMVqMXOx8s2/OuAGRQTR23w5nXzzZlhSiHMp0w4E+FsVilAeGz8rhMXs6ASCz3alQLw+ oPDhPAHaTaXSO2k1gvee mRdu2EmQ8Gp8nJqlPgks4uzGcFELlTDPI9UZzKSv3fz9vJVVNXQvUHv72WENcDXFU0+oAl45Zj2KVImS Ui6kiz7aZxhAmjhIg8+R PswM9MHAV686qOSP3IzAdbgHvG8kViSdq147+1p3lINltmTnl3v/czJ569KCoqECdgF4Hf6MPuzK8HEM R2nz1UbHCcozld2oL4Lf gkh8SVL69LEs164iHUMaz5LirnJdyw+9K6pMx9Tx1/f/iY86wUQTwr1xDoUTXoHykd80MKIwqDjvWhUn GkzqcxSIXIcd/5ciEqtc je1XKAvqlw+hw4347CiTE+NWhMeHvbg/z8xFqzAxUFZa6l4no5a+Qjej6UqIWO2acjGSNbdNxRdrWarG LuPyAHQ5gvBBnEiwbnLe mCIAh5h5lqYllBIgqc1tkXSmrq7hqxWNT2dDHeE9Ed1Kv5yEeh1w/ljZzbtOD3QtVIl4+ejcEdd5dEni EJ5DYBWXGsoUJXpEY1Kf cDEqKTdHYPj52SPrOZbI4vbxCJSb/c2aeXHNn0ARte1pqERz0imqQDIzEkkhFNYJoPs6gs4z7uscCt2M zAy4zIq4mhh4bkaPW+kj 4MECDMrZXGKDRap1np0YfAivp8ZHp4LePDimvy/dPSo6YnB6dUn2rb+vs5QCi53Z8QuWZKiiFL575yws eDC1d0x+b5q4BVrscxLV 8fuTzSaNAmrn3M/cqdXf108/4oSJC3rtb2uN8wzMIFBRL9s+5xXCXwPhPVYCFqMo4ovGgyc3+UqN7VtR PNAg0H/5hXFsGs5imMfZ Dqzz06xzj04jMnirLjGqQoBaydYylhXq12iANQh54eUP/7Ytr1v/359+k4IJSbtgCVNQ7mZtLLRAwAhJ 1Jlq6gJlcu0+7dLYx9Wr 1VtM9qPJYdB1SWPQpVu2hZDsWdXzsryxxy6oUPWpPcJpQA+/C9bsxsc7gAX7JNlCMwJqv10TtiOSxGZq v82i2ncMAZdYi/euZOcn AaslxEnbqsKcwbcsgI0l3vb3PUms70/sVhcUFE/dOGWVcvBNg81ZsBE2j7+iH3eiKW3U9uAwSGZQKe2d SHnQiwuFgAQBJGWlrZm9 zqOzUYE0TJd3+p1a/UZITfq5Zg5jv4+BsTFHf6prRh/1jw7Jl8iGgbbaBJEtuuGHdnXnycG9An7bd6UV 1tzRbdjJr03ZHaoMBXgN CGx8xvGG8RDkyVt9mpYqq6mC94VFmdHlPNF2lGq0n7oYTz1sMETzmUxVW6bBgf/f/mtEC51VzVIta94B Woq3uQO0uj88+aNm+zt7 Tg15qMtQNhtKDo/Bs0ulAepV75j1RDv1TUsesopQzN3dw8+AEIycDtKEO8lVQe01wnv9NTpnBdw4E12m 38miub6h85AJGaTYkhb1 FUz03hcAx9bedw0F/XNN/C+M6hJe346o7wewKlnE5tSa9UXeO9RUrWPUb82e3BX0eP5rg0e+/v6+fv6V c5TFWNiZc4cQa9RzctYv o35poRmryrRY+zz83im8JNtEys9LEZkxVjZpMXlEzrls4r50HcMk1Zhrhh6U0/Vmw5SITwDE12eijgY+ 6FBN5Ayrpt3Oa8p0MzRf LXG83RJc1pKMtW7qYbsD66Chb8hU6tyD/f4+/pt37rN/OCjhw/6zy392b5vLVIX1EIt3Cww8/j7+u3Y/ kf+0N07d/r7+pUm6VjHf Qx3H6IzRyxTy//y5Uvzg+ADoKT68DpJBOUpMgskgfupy+0l513xiBy8vzwq7zE1WIkWkU/b2yBQSO236 ZQA3Kbvlgq9qBBWOnXRC pwc6eEaA1E15qwUmBi00vOt88kYdIJnq/utv6/f/7n0Os08qlCYEG8nkV43CnK4zfIgy8rEMUGzJ/TyZ Qyqt8O6n/Zsf1+/7p27v Fk2tjXYgQNx8Eqm4/ESaVxyJtOjYDMwCJGqDyj5qQ/Cp8y6CVxSeQA05CeSyZzVi1getk/qieUP0rzur yuLQzFHzSp02zR5cPT++ snf12/NRn0SQC+2dStf+L511jXx0GWgsdjF32+YpTx39j+dWoaRQqq50bIscwGlozxP4Re8foZPYObz8 vm3tpHLKY4fg81tSzD7d Ne4wyZG7Wz78URlzQIeixSaAjTY25IB1smurRiZdJvOTMZC1utqN/i2kgU+Ag9k7o8KoNtBdmD0AdxIV nQWYz2g5++y51wdiuSGc 3QiDwGa39x490EYYTZa53AR1EBQ7hsjbm6JLfbXyWwT110OZ7fQ2JcI/QcO/Mk516CDisYJZ/HwwQOLU MWe8mWRg5Lfm0ey5PanN TfjpoNLEMBFJkqrdYcFTW4Vp8HBV2rqJ/4H9x+wKvMRpKamxr+JN+36+GSdMGkw5m2fd1Qj+P8Pw8szR 24cBH5Td0qBuhEjJxlVe 53cAqpn9ofomXu4utBIy3sRqoq0/eghg40zb26id/wuADhxMkzP2bP9bHjDjo59tSDyMYM7LpPtd0VVp Na09mzzqh2OUoJjDskwq ckaaMjKZCRX4cmwOIGTaPt/NDeVkCLCTApj7kOxZWb5b5rnZE8/jcXLCi3zv2sk6O3rNx8CQ4/PuTNnZ 80tdjZYIk2UNlbw2muTe +fN9/T2sf3IWRcgCS9ga/Oc5e83DgfCRa33FZeQ8Hy0cxO+Ih8z+blbj+7hnfn08KPM/f7w6Lgla04wv /rmXTxLeXQJ9s5SdFb6b +Z5SmXf/v2+fjoFSM6wJsqu/fj1PdBc9CiRmheI2Dx6S0aV7cf6+eCPwInA7F8FoTeetlQvS6sEcamNT jZPRuZsbYTj3cqNHjih2 wy1jprAJpfRNPethjIcB54azv7sGGfAIKsugZIaVWqKfPCe4Skw513NulYh2050j4bOi5JOQf6cQKxhs YNq96mycHv0I2zL6x+DB NQMrFe/vtUsbt+46lLJmpsMJlqbKGVeITHNAjTjMT0jqocoQF1+KUIqMqNAa67ervluIDUIDVuMcaL2E ecYuuQoXoxdncJ87gatS 9i3/2vPztQeuZdOd6+PBd4+Ll8pi78WH0c0jmvSUALAJFSH9MBIE8STOU0+gINSdye2c3/8PHOWVQGSJ IUiEQCIxWKhUFhQOvlZO G9+NNDyMvSRp78zPXGK05yXDcmShQw/z37x/EV+aPjUiQ4xwjUJ+i6cPZkd6KorNT680rpSwl8hJaMtP 0+zmfc50loxIRG3922zj QVDveBWD5xiH4YcQL1jQUDtuJJ28cF117R7g6+/evWqX//+D2GsBJly8t9yrQlsJqbUo4fGmiiC8/fN8 mW/sz5EpYGjAMKA7GHb/ VKZ5jwToss/TeYpEDElAL9egbFYtNINyG1gcXhGxAUZ/alfXh5vxMa9AUH9gQnU/72fKQmyHOTE8vVBF LS8t4/SzrFU1dx1FQ2+f lJUcIcO+K9QIkYjPVp5yCBh5hxKM/ygDz0uN73c0jMmDcmwNpaaEqk2/Z/MbSLiI9Eb43LA7s7rDWn55 uPHjhczzcKxMHF+0EPII 6RTRVtni6Z1Wq+UUmrm4Lle1PryLIAfFq/9/ttIxDvUDJwnH5U6V5JSv1s4sBMwgmXsqkydW1eLoDibW Gb6r1dnch0NIGZnsUuog /JNPmEw3deEQyQzAboi1+MN43CtRnO+2T45n1hMNLJjcDAnMtbMAfk0R07A4It448obkm+6Z/vc3vyK1 Y3uHieLy85Yibvz26Xb1 WvVujUAXA+/dkD03Byu1BvU747RJSxuqhBxv7k105/hT/HH4yKr8+rVr//EapOBFy9zDRNgDem9tW3Qy SqbAHHRxFpXms81sf2kb PoNBt7w7YV5zXE5+rd1/YoOsoFwT720wQOnCbabp10FWWSkgpYLRqijYFzeOjcAUAeOS/j66DpyaKzm0 9rTCqdQdnRt5FUBR/lt/ sKCZBRlGZG5Pu8/zr4b+PunyMzMTExIrN+bzZ2PT68ct/ki8YK9Sp+NpjTbAUVXY1Jr/ozDDkQGrcZ5D 0+M10u9s24m+Ob1m0k// TWLN4xRYfwg4rgN5t41X//mDQD4+vn6+NR5WFPqxop52h/PGRkZ/AoUDLKB9g6f+MdTMud5fPM/wsEDb ++jtkTNJYCCuWx3Mh+Eh lAeJOsDOO2SQ0xL6Ae2HuIGOtTPf7V9zhe7IpKe3Gmxi0ugdIQv3v7qJi0hkpesSVj0DppMDtud4Pcav ffIAODB/xhAPv0sy6GKE m2hxWG0cNxICdfV/f7gH+6JLPsSmApABDHC0tbbZ8BU6yJUkPeRKy2yz7vu9q/eI8s2VJJX5M6hsEtQm M01nbxM2Uq/bldAhwIAS LFfYOqWi6A2yty9v7NpZ8lqnQ4ejxzotR5Z0JQ90GnARPgUMdza/Pj4+qY14SsG4It2f6W/m6dpMxXSC caRZNoaJZGd2ysJLDMIS gRnZxfzVpUyV/dvTtRtagcmZo6CTb2SJCLMHXsCHstrPz3TjvN+/ADmxevfToHLf6sq5BnbhtrKxGj0J ZGt66X8VsPisbr5+jgq6 s719QJQB4Mbhr4dgS9GFEg3D11jh4IhvwhznmZWxZcKe2+/NyOvAUcznyq5VdRIR3YxVv/zqKq7ZFgVt TSmH4g8qps9wY0aiEBwv Y9fwG/UwAS1TjTdb9wTlQf62Wiv7vQdmvQCBuEDCUQfkD+JQiShAvE90hIHL8AA37nyQ2nyJGUPx2Adb 06cNR8WcTGM9WsRStcd9 +GHceMNRoPVDoWJ+z6evSp8cAIZw/Hx9Ewcc0lr3OQ1vo64apEP3lt8imbOme5tFbHluV7zKsFkGg4s/ 5xAWL09rl5nx5imHoy3m ta68FFgmc8+idB3IEq4IHmYhK7fJjaSREFjH2zIdTfdY54ZIPLxUv6kQ47xYFcchjISNbsGmESDsLdcC JkId18JssuGdsszD1Lt3 3RQTDuSQv19F2bxU62cQruT3DQESDHV72qhGOhCtSvPsQoWwrELSZdehDLb/Hdftu10RYwkj7Qw3YDhQ pBb0fWrpUoMoA9fSgwqc i18/s48PP9YJVyGK+M4bv/xgFHJNgkUJjFDcy3sn5tPZOSMjSzLQ0D5UDv2/9dn+MiRABD/4n4DLCF+q GNSoWLFPn3/9/4YTf7bJ 2cZthAbCk+Vhu2HuIbfNkr2z9rgjaduaG7dk7r+u7IPdeZrv4xVTDxjvpVrS9UvPiYL8g5pEKRc6HoUi ImQMTh47FeggwLnUAqsC Jib+R276HWeUoldk9yo1t2/+zDAxp0Pn20tn70jBHl0w4plTPXN/1cg+GArG9+lZ7UiWSC/ruM/dEERA tNbnCjqLnqvJPBeATSat 09ckyA5j+vHc03IyeZs1ZUf1eRevBQkSt2tTAzGfmCD/vRQWvUG3Wumt9mZf16jCiA3SPrk8GoJfr586 TR2WkZrFolt7un46NuA4 0KqAdvRGj2qYXI08WiN0m5ZGTugQjEDydZxyd00ouCkhrgeSVmyLK0YK+vm6KT3D/uqlgNcK24jKvhta /5jJUeDGD5zMGt0yon+9 1HJaTY1QiJv8rukoA2QtAucSZZyo2kk/WpF8WaNBElZZ5vnvHDEkn9pLrGoBD5jr/L4ib+ulf3tw37uE 5/mZH9Av/9V10rqAsGZr 1xeTpGBIBWXbTnWRs4mK0aRfMULiJGQLdq0YLx0mDDoxonSkFjm/Uh1HL4rYwXmiQ9OvZheeuCSbAdia kUeGgheKfjE7CgtOkWcI DBNow6ykdllkb+fmCIHdSIgJdGnFVQmq39/diuZfnRQC98wgHyjnnFBh/+yaNGzZ8/wWp0oKzoaNt01l nzkqNHFsbWb+Ftrunft1 t1Up/v27F26+JfuPXuYDzN/BB/5VyC5pz736155pr52akgdxa/eZhIJ8BpVg0Vydfoc0GLnRvEO9Ab7/ esnN6DADDEXHfKBxsvSG EmGEItdwaIPkC2vgz1ib6+UYCW5H2y/1COx7iLo4K4SdsaShMhjNold1gozxTPnuh3I+xfkffYRKBSKi FoGQYs54cVp4+7b5l6nC tjVK6lNlxvxB80rVfREJtCMjhNEkWbejx/Oyc6+klNp9aOebf241yIfOzjdIWBzIg9lBlo2WNPgDbPNk u6QTLrAOeCL59klXJtlr O0ReXzfomo7szuiOm08pYjjFd24SyCffVklqfpmnyyqteiuYKINwMOqENgcYnPGBKvkvjEiWN8ht18oc sCj99KNarAG3sFnbEzo7 8FLtt1nktBi79ut9/Oon7muj4creNy0PZEkYWil/HuJ1OYfVT5F1z8g7p706GUNNHpg9+fPBw8Z+kHZ5 6r6fmHjML4WfrMIOJCZ2 OH5LZZKbctKJEF0ZUN75yblk8ns+0j5ppU6JX29g0fjUtIOl4vDNkV0a6LqDmtHlf26p4/zKmbjbt9br x9aQIowmUmlQPHZ36ReK glyo9Fc2EK+qO9nM7rR/8jSdqJbjYJExpU7KmsHIGkT1c+3Xz/e+nY3AbzLfNv/S4ywca4j8Sqon7oY2 65eaScrzNGGiuPh5NtIJ PT91Lgt/1Ub/r749Hh8T7QByEl6y+ANFFgstrQ14xnvKZFgENFMswai28240SwU8rU+ov922lTHxRwv2 UyOtuK3bFjp/+7S2tMjM +ERNIYgKCj35Inm5ti1w0qmyQ+bt0uJstrRmwrvHv7CbyeEclDL4Dq83kS1pBYm3b222uk7/N4etVw4+ /HdhgX24D9gtgZ+2Auvu Gw6JSPG8Mv/qWCEv5ecki2wilNWRJFbLxF4XrAzCLVw1kgi8k45p8r/AkBiYuLkH3/C9HEL7exXbKd7Q 5GxYEOi3fCDVLpAmop// Erk0Hxtp4cZwV3l50/y7cyFPPBa6x938LBwjEgsJP2+fMO5lFOIQ8z5VJZECWIzAOg3VP4LV3754koPw 7Ls+HTeUDXj0Cc+d/Jvw kSWeCbhYyaese1X1m3F7+/b+/qr3gbw38ttpviWURjW+xwfCrJM5Mw4cxUoI7Fjlka+eoMU1peSeFvmy fbg/IUL+Tnwf+7evXXzZ onESg/F18+KpeBnd1oXV0SriMGwScsbIONbQObkYM3/sbtIicvVGFAg5DQbm5PDyPqP6TNgXKPJUnaZ5 7Zt+HoZH7Sb55ojLzweL NIU5Ynli30NRUHH/5Lec2jQds9oYQNb2I84opLNvchf+GgRikgu2eEFh7PEcmw7NdUrzOtW58/ggPwRD KKrEuq4dcAA5IhB0yBSO Tq+VlPcH8peMRPUhKqxlHCH4arNcanXg3BrexJfapPRMeCVJNyndR/SnMs5DpD5Wl+zTmEUHrffwG99l 74z3eoOu8iX8hjp0Jwe4 eExf+CHwyLhEa4bQhtfmlHFocX7wKEM9KQsP9pGFTr2rdLc0SuShtTLVVben5SSzRiQgRPiDXrpDlVv0 Tek7gkB5tTpeGN4g1GT4 04J5RE3xuJXbn2/AICnp+dczocJ25GJnMbF/atTTWFb6hc6f/u0A285lcGW+8ThvYo3J/3VgEsY0zvlG EKpEUWehoVkotd1p08xZ sAOhu705eDGx3LU6orRvlPRua0OIYZqSnmm/F1oHcsP0ehYmiYOag/tGcI88jZB2O1ffkQpCwfsJUfZt 2Rj3BCrCfUF9VjHaH87A v394h1i204i8K6w1hZwL6SuH6R7snbdQxzryLSbnAXFsCB95BzrFrsv8s96K2b8MPOdOb5MLViS2ubir 6L1akn9EDDP615zm2XuI gAoVRnWnLLnYDTmNnSg3v8aumPNSuIHWw1MZFBejo8Hlt/ujDz0WQSzQzs+fetW/rd6Xlxa5UPQ1h7y7 dyPIxIEZh5RYvngMemTg cNXJosefcdPRfKu5t7aypmdoNraLSj5QVy/jQ2bX1n+LF9UlsyAesRFmeR4PalL1kUoFNPcLq47IkuLn X1dsn2exauFFk9QQZlWj y36hIyWHkadnb776/kkJMTEc2jRLlss10OqIsUoShef5sFrswKLEf7v4m00SQUqdNzQSQgMl05N4ORn6 aRcin3rzf1NaU63Uz1q0 +margret+DJc56banVse7td8L1eXMkmUzJLuxPoYH5a/xekTUYn80EaPb56mQ1z8C3+zWBw6qktc4palgJQ+O N8pi7kb0DvUkL2Nri9rE a121Coo6tjuyPkist121hlwdl7pd+gtSExM/U4y23pK05ERy/gR8/wCDPKpvqYLpXiu6LrrL9sje/CoU WvWrlkjFosDAgNMfppW4 H3lDGYlFxCEzDzvG10qsDYxyz4wsQFj9Ja8Zu97yf/98zSLC78RnCINQVpQ67ql/620p0CEGz7jn0rya 2zadGDf/uVLl5k+XQEAs TGx58+TWJISoi08G8FENwP5GSny6+8bDEcrbQw4QKQawmyGRiMG3Ev0Ab1st6p41DRg0/9ISUlRKpUMw 9epNoWAlDUZZL7xHqlb5 UTXRJv1bPCA2/Txy5RtZt6LkDa3U/v5s+c8JFa9P+z7G0fOaBm4h5yOFoKQiFidtJ8/f/n22mEMy6ao8 xoX4iEKmqiBUMPjYmXwX eQTonsK0384g+6cOVqNtk/nlhTk9P9c0WduyDwzEWZ+KWPwlyyZflaUeqbxf4ZdERVB3mqPvGtTVE77J K5S+jyVWhzcPo9Yte6+T bxAKKBIUqVSRT9+cYItjiJAou4RtZMyDUgw3m3s/PazlAPSu8kmps+7ju/STMStZ04MoXQLGJtR9h73E v0hlchcnjMfMKO7ROm8O mLrbeNqsLbnECLpp6G/4k6k33ZYSrYlSlKD0uoJ69+xx9hi5nt77Dpm1LHWzZdtsTMHoa5uAjmnAremg Aq1oJKPZGWIQwcYRL7Aq lAps6emP2DbwL5vAzrvvNrz66ougyk06KeBdTwC1d+UIKDPrYjlhN7tC+EoQzjDiNNBcvfFgY89HuBsf NIchxZ9gYsSj8aq3dvwA he4KoIIHDvTlDgwqn7PmaEvg+niVI3RQ1en8KJaMM6sZITZgb7MxpHbPZORZOG89fu1766iaxjCHeu/7 M1gv85jC/j5+aNQv9dmj /FVnN5qZ/S6UrWo6+yNy8FfzNX175+fP3/35E3x71x3vWl7ArHHgQ469/PCj9h1w8x7Lw1GekB1aqou9 QjOC9iZfhOb6lv4fGZCI s6d/kDPb8aJJGdDP+MATfYyBbXmHIey5cAH+/oqIaZNYEAQKj340zoNU2tWDjCy2B9+gpR8G2S9mXNsk nKhjg488pqgh7b+3L2bX 63y2cWIAJDXfoFGXdXwEd1un/ertCtMTKyGZyzIW4lFH9VCNI3kQl9rsLFMdPbHDa+/Fo4cDxJgyClc1 hNtl1GnaFCzw0tmnzb6P QfrNEyVWdDvvP6wnzxz/+e276twaw6ln1/UCy7FGVWK9h9nfDHJBq7shujhTAQPV/tAus7hSHa6HFrFS X8FwAMLfS/+/voTV3464 FJw1koPCb+2XR8y2k34d+/V24ml5Wijd8qyUGLmunwpD0TZA3+u+HXXtXfWG6Nigddri7p8ECpIlLyGh AokavErZoAQwKALf5N3O CeB8B28Obp47JV7u0nhRmE60HC2q+3chKmENFOqWCHLJbb0Hx6ZEkCLjfOlpA//4zKop1NBuXGPBFXc5 l4mmoPtC3OZ1Ow874d51 0RkZF1V56xIeyEyQX8DQKD4RFu0o68tzwwSFUj5/9wEq2st6GZ3zwp4gMAjitwEUbTvR9+hYIcQnmV9h fpSduoxx9ubXJMI/4ED/ 6mPjLAs++D+y3rCy2U4ytNIcNjACEOPKMJ5KDouCCN80mLd55LEQxWPSzsf0x1L4ukwjwhbt0Mmi2Um6 2CwB1tCzhXhzPdrWn9QO MDuH96xJqu62vTNFXQumDodwXs7OlWb1mj/9zAi9OJBf1A2vbGg0NoB47ZTYMqzjPmaKSmhOZcH09lCV MKVEB9/5JKAx4Uo4+Agk 8oQQkajQa/Vub7zqRWIXh7cuiyIxCmv0khmjt9PjXkN3+jkP0zwmMwTrBxhruL4+bmNc0RpcLmzGBm82 oWLd+3dIbpOQkSE6ziQx 1GuXaJvpxr171VYJgr/CTMDKFbqpSSZ2NC2LUzTq8TgiRoTaxc1nSpc+cJgMJh/A//Y+JmUc1O9lrHQl mAwpQassDAYTKkBKywMB kFmfXcFo1SCKoTNqiQgoLdeeENVCEnIPiaHNzVjrEaHq7MSLlDRblOvcVskgXNJGXlRTjwULnQqqAhWq 8GUGrDCwmAwpQassDAYT JeVRapKSwRybLdVx9IIVlXIbcKgoZrpdEYVYRzSXmoWKuWnuAdVt8EOExOB+pb6mHcXdVKcKy/++OOnz vex6u8zVua4s81a5+joK BKJ+cardvCOlq9dKs/l2q76wURU4dp0G6aDcnNmTcX8Fmx29zs2pyq246rv0g1oNj1WPWUe085ZteUWY dNwUnOq0NSZ3846vcjiu 4MJBK3yy1/A8VDy6iapMtgRr56IH2+6wgOkZKcWVBnSeudp9x2dQqGvsqx/GIgs15Gwfkq+qR4+fPj/z OjSpcuuXbs+pk9Ono5yA WKEaZe/8h821eiy//4ctW0OGVDGKUINKIhnE2aoviTrTU2WiPaVBS7zBjIVZ6ZA6tQzT5MTk7441k/+o R0zhbSMq136Evlv6fSTJ E+ePCkk/xVavaWNiv1eWSrMfZKBhLf0dRaXKlGyPO6aDd1UCVDT2lGHv0gMln2ME8nFjDsNruBUx1rIM Lx964Xgc3H7/ZkzVSqV5 l6Dc5UDQRHsnw9/2DaOc17p+LN4R5TV/jwRGUb2YCZB5XDmRmdf+oDdrKUA8jdvOQRQgAIuotV10kEzK SW+SqZCDWl42uT6xwn79 90gV1HaEU9xPh3mhsuLRjVldPYJB58yLamOcqgv01eGn6v+1xOKplbqAlkYuh91+gtv35PEqyewBoeYY x4aBNUP9Ymx4Cf9QXvsL v/89624L3L//v179+9bRAVsRxb847rFiYrN65zeHqb8jnOcbNb4+Y1l6dr2jkjXiVX/mAvAqYCx2aG79 iVYAknN93EMHr+7bt26A oTtbVHfU76WKZcWQHdDbvk3fF/t3FKUWPFc6mIWGucjY1sPbPnfvfRGjNdAs7p4jYemUk8Lla2Dxd5c1 utOQNKYf5rfGvN521/z2 /pDoJst75s25ab/GxrcF2t647OQYys/OWno9gh2O/Pbz58/KlP8uhubBR3nyYcCsQBvgHutxRDIhvW15 MrmZalicJa4efJAKwxy6 ZEeTZxqWKvWTNjPyEHXLJqODMklwhkYMa5xJRMda8DQyEgv/JldxVBvJGJSlAtApfBn3he5nbYNMUODE FlZWQAwc+bMpKSkwhWWB NmhLrBY7TDK53HsG2wiL9Kd8SrfJW39TVH6Lw28wKb79nWRalVtf1ua7ksIJJbSOXUVlrx+73S8oer7r 0azYIZz1SmsViUfElAmw PztjuHDh/UrKRgORSZr2xuN3QtQyfDUe5nRdVBWWBb6giFqCALXDA6irnDxXLzGgL94Vu2z/Kgv5oIqR 8sNVaTPR169epVueqych NJB7/jBCzSxLpqP9Co3OhwhaNc7oUfq4lWrwDuAqr1tMKd8+/jjF5QvWdKp1XvpwABlRFEZDTajXf1Qg m2Dj5IG07ZThoWheAIm9 83pteDoTATF2YP3UYBAy0RruaCk1t+hi8tc8t4wMcEElFiFhxXyoy//ybdhPIaIVXXzBo6ZoCa8jt3Ae Tt/++42ZYoEFpmD5xONM 9DOJjLPKdbRQ522s61Fa4YvNLuqzQkuk3n2LsJhiG2/v/yG0nF421tE5J+N7zWMt7Yezd45027RTz7i2 QjngB8ZNFCYHh7JSEcTG Fl+tvfzLwDKQTxFKmwaJkBpa0nAYX4C2EZzu2DArRzPmYZXN1lD3+XMi54f6s19kxRbvsox51255jFGd QAAc+bMsThYUAtLIpFYH SusXr26+TarmgsGrvNuIdCAqdMjYy2ZMHd5ctxijiHrRtUdSK2rwwpSC3xjP5yuyjnLRZ5pgwW1VOyy0 Llz+YtUoUKF/NL73LHrB PWH01UrJtXPV0pVsV4x2QTpK2Hen3k18AjNDrRv2LcoRsBXzYnZoN/g9R3KVvnMlFjMNi5n2lj/+uqrn JycQhJ5+fJlMbNDCFnkC EUywpDZDs35Mb8ilhWq1S0NpJBu6fhDlWdeUpouj6+QYpDV9ah7+vqacjRhNYUaNWoAAG8+V9HaLugUl LWKBfWhu0JotzJHnGox4 IXgPYZm4da835LvX+2maXNAo122OBsQW/3c0hAnS2783516o+/jKNt3PXZFkyLekf4PXQBJXVOlrldEX PWBbt1eeGsjAj098ovtd Pg8SO3rIu7aGrk0OzioAsAAgS984CuhoWkjgUyeC51oZL6GKxNuLOYio004m8XzgqHHZcYa735/++23c cQEYHeIAXRnLofrNT0z4 luMCdqaG43QA1NbHIIn2At3u+c8hq7r8qoXk2KgWj54YnVe+bXz9K7R7ttZHEa4TZA6ieGV8+Jt0MuaX tQTlJj3EmCQQkTHJs67c fMnUexe5KMhUfs1qrw2XqT57H/4gemuNBXdaLev6vafaKPX4hxdODxDP66vBMygVMF8N6H9IPZoKONlv xR6FVwhnL/SokuIEKpfv j0C0aWAk1jBKHcc+s9H4W+VuYEeWyGBVq8igqYHuin0Yr1b1sOn8lg+whCir3UMJKHLum0h6y4e6Mij3 yq20iUoqbJ/ERQUZApat EbEZ3l3s6i+49atW/nXGTo8tWpTu0NTdkgiEiWWEnZATkC1gMyU50/Asv8Cogds0L7ToovxNjE5r1aZ/ Rxncj6JoB19u+ePWJASx 9cudQap2pqXpJII2Nr1asTf589AiGtEC7z8qYYqTt6ZBiFj7cO74iiUYka7np0rYcK1sqv9sjGEDBUNg /zns8j195+/FYlEPj4+j f4Z2lwD31anK6+syc/z58+vXLlichMHgJ9++nsi0ut0liv+/o9z149elNr3LshUhmb0+/bcRdVkPH4rD JxKyRuyi2E5Mz8urGl6v oxqxaWkXt5s0lqKhMKXC1ea8Gb6nMY/gHTOyE684p3+/vNtxeKmZbyzIa3upoBdhqCKUd9l6y13pzHFQ P7SYhWWyZjkIKgaceBtT sbvCVAYMwOWpJj1G40albRAmeUeeHAr9aq//vrr/GHntT7OahTh2nyF9UfkMzGAWrMkhjjojCGj7dkhG iGNBvbdZVFH9EyMGV0Ag AMkX87bnh0kQBEBbs92MJBDTk8ff91hcLgWfWncF+yLhCfEFl37nRGc3F/IerOxOfv2HzQQiCaMYppJm VJclNaUj7YDZsDOvmPgo HlutLLUAOoYOqvNBwOfzNnUo2DUHlFIurYreZu/A55RS/e9w9VQPLAULWrDTtWxGuOM></span>
</div>
<strong>Patient Name</strong>: <span class=clinicalNoteMacroWysestefania id=[id number] macroname=PatientName spantype="macro title=#PatientName>ISAIAH MACIEL</span>
<strong>MRN</strong>: <span class=clinicalNoteMacroWysestefania id=[id number] macroname=PatientMRN spantype=macro title=#PatientMRN&q uot;>[id number]</span>
<strong>Date Of </strong>: <span class=&qu ot;clinicalNoteMacroWysestefania id=[id number] [...] be better tolerate d</li></ol>
<span style=font-size:12px><span style=f ont-family:[place],Helvetica,sans-serif></span></span>
<span class=&q uot;clinicalNoteSectionVisible id=[id number] internalbreaksection="false originalname=Med Onc [...] indicated for today's visit</span>
<span class=clinicalNoteSectionVisible id=section_ [id number] internalbreaksection=false originalname=Smoking Status&quot ; recognizeconcepts=true spantype=section suppressempty=false>Smoking Status</span>
<span [facility] id=m [id number] macroname=PatientSmokingStatus parameters=ValueIfNull: Not [...] recognizeconcepts=true spantype=section suppressempty=false>History of Present Illness</span>
<span style=font-size:12px><spanstyle=font-family:[place],Helvetica,sans-serif><ol> <li>Patient reported that she has been anemic [...] she has heavy bleeding. She has consultedwith head of loss prevention in the past, however unable to tolerate [...] IV iron repeated.
</li></ol></span></span>
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
[...] sumatriptan and topira mate</span>
<span class=clinicalNoteSectionVisible id=section_[id number] internalbreaksection=false originalname=Family History recognizeconcepts=true spantype=section suppressempty=false>Family History</span>
{ }

<span style=font-size:12px"><span style=font-family:[place],Helvetica,sans-serif></span></span>
<span class=clinicalNoteSectionVisible id=[id number]" internalbreaksection=false originalname=Social History recognizeconcepts =true spantype=section suppressempty=false>Social History< /span>
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

<span style=font-size:12px><span style=font-family:[place],Helvetica,sans-serif></span></span><span class=clinicalNoteSectionVisible id=[id number] internalbreaksection=false originalname=Vital Signs and Pain Scale" recognizeconcepts=true spantype=section suppressempty=false>Vital Signs</span>
<span class=clinicalNoteMacroWysiwyg id=[facility]_[id number] macroname=PatientVitalSigns parameters=LookBackDays:1,Va lueIfNull:Not recorded on visit [...]
--- OUTSIDE RECORDS SUMMARY | 2025-09-28 12:26 | XMS_ITS ---
Author Name Interface, [employer] Address [address] [place] [address] [address] [address] Organization [facility] Address [address] [facility] [address] [address] Support Name Relationship Address Phone [employer] Friend Unknown Unavailable Allergies and Adverse Reactions Medication/Group Name Reaction Severity Date Compazine 09/19/2025 citalopram 09/19/2025 sumatriptan 09/19/2025 morphine 09/19/2025 topiramate 09/19/2025 Plan Date Type Value 12/20/2025 APPOINTMENT [...] style=text-align:center><span class=clinicalNoteMacroWysiwyg id=[id number] macroname=&quo t;PracticeLetterhead spantype=macro title=#PracticeLetterhead><img src=data:image/png;base64,fXOMPh4CXogMLNQRKYcTFyBBITVFWOSWHMRTLXTvBlF4LYYMSMUTK 4WOjt8d5EBEX SZtDV0WWNKuvwe8RDFSNPCMfIbCciZSMbQXBM2eTRldT7BABIeNWERXCAge5Q4NzZEP7lqDvJgu9CBll ClGA3SrTFzcH9roAxTCu tBiAjOd4X1FsfBG6uaPc8GXhzlI7SVxMvUMnitaLF0K/uC4XxxPm7bmaRQ44QafKcMsM43BM9dI366to 0Uq1WXrh/UxXw4GQvJQw FGoeXDa1zRLBkbejlKkiWfMNw3NQUa3eA3RKXAtgdAWI/2dFWzrYsZk6llRmZl02rzKGJ5F/E16RlRnp sAYrZvrs8g+zk1Bas2by hg6YuLs2bsa2zO9gjXEi4KtslJUSe6xN1Q7DBpwVTS14tLm/dYuD5hTibMQD85WBK6GQ9ZvC6KzwVzsI LSJGkQ08yWjCJ2pyVHi3 k8Kb/n/wwXTcqh8XuQTdivgdaFahQXWs1sT+nRJTbaGjuy2j960xkz8XS2ZEZUC6iPQnBE4NO0gySJw6 k+P4zRcAZkr13Cb1/TRN 13DGi43Ex3jRAm6YNtZWasDYh4b7vtQPrwvjJMb1q8aTWfl8nAVh+u9bFccudSMTftVjgqQVeJ7FmBCi x19tQyxGfKlX2CmiB3E6 zgvayaGBzM2nNq+lE+/ESYrmMYR6h4ObRM11u8GI7E+JSNCo7yDuLmACslmUJENsPHO6Ih1bjpxYCcMt Ui7bmKIa6lt1/ud4xt5R izZIOG0lXbWTsmaqzpqf+1eQTaeUXkShaRTozorDwl0P5q+7fgg9Tpj2yT2ZElv2ESw0uxbQi0A9xsnU aWlpRIMIkds/Su2w6JuM WJ4MEoe3yLQeqURbSRu6ALkOk602Gru8PWr236/H6CKwOld+EhkmEG9lsPSu8z+prpnIRPH4nsdVs1C6 Ux7ClZ5J+aCw5y5LdRET 37yIpviZnXqHn7kKDzx3UZo1vvcg/S5TNvMYh+CWdDXtzFVc3VPZyZtgVsVnYtEZw2SqyLWAt5IcDb4w OHCRTVBHMIWHgkJiea++ +30ICFm9za7BhjkuwlXJTSBFmLJ/P7PM9wbBFWtnRemWX7GahojIp8HJ++z1QukMJ22aZHIZ0YilVXtb cQPh98vP2941N3o4pRkP 7607xoqtmWA4PwlOe7y8bCAJ2nR5km5fFVKjAh/MZ8GLcoZOLwRR9+Us+2bvFGPo8kpZMgdnwAe3vB/4 0lhyfKidDM0bB928Im/M 9FBS3iFqasbbGO7E4hpCFW2hOHj54rb9Wb/rcvKe9tNbZr937jR2VqT2jVNPqGTCOPaexx1gHFMcQx/E J9NukwFCw97aLwaZ8nKY HoPedi4lsOLT0cEQVkbv07fSxJiRTGwPQBmjPVZejSLw837uCEd6+5sekE8hqsZeDno/L7/p+TChQsXL c6LGTBjekWwsd9vfL1/w zWUEa6qSQ4mYvVm+lgVkn5EDwcHLJ8n3IpHFeRQrX3ohqY/+9+rEsH32UEZ6tMlg64Mo3nTDTfXktWDM Gpu0rVYX8KzpSinOjHJY XRsdO/ew+Tk5JR/3xMKNv1wYzLfZhHylp0bDmNibA2vg+WXNHPR+XVtpn/uueeazTEEBEKJ+MuYsWPLj 4UMQLo3wjuxtAFIYH9Sn HDhwoWLPwazsSrWrVtXzqKjY+FCvSM8Gqj7+EGivA4QAUjoi84xDNDfua+4o4hSjhvN/LZCKujXbzxmx VLkCXw8zhcVco538buux 6/3VhoD25Kvu71kbdB5Bv/8cUeAMH/FhEbQXmgNUkDHO9hAlJVUDfrSoAbiM/Q2etvJ0vTzxi+DP6270 i6wsZPzLyjxa+8tsOkm0 eguomTgf6leWo4Ati67g+l8gedKEStOja1dX3rPoeDvmBG65r+w4D0ag4psmq738QeRYkfzKRv+/DFZu 65kwJNLBzsAiszkbipH4 ePNSo/thZSKUf7h6L0eOYKyKtmceHLVDP4QzYnem3+QGg7NUQ/756Xwr6NfFd5iYawtjS4MQDTrmgpxB 4QO20mt4aaKJWtBRKLjR Ir9skIpxJcU7tV7R4fLbnS8M0+OmWn9WozbhrrMFE6DjcJcPdvMWidJoiGWyVXBSBVPdh77mvAGR+WAA w+DhUikni0z/t0t1mUHQ roCxIULFy7+GRv98JVFMMljHCG6+RPcdZkHxHtukejaIyHkGLw4whbVFgh0/vOj05blwbzGL01PkT4dh aysLDNt+oydrq+Mikp95 hksxkHfp8YYRqhYEHwb7opIccEv98t84PAa58ohZeAg3hhwvmOzt/XyYmQ4C38/woBNc9S9DW/gwoULF y7+AThhu784K4cNWf366 XaqcnshAwRg00sT0OKULQoN4y+A+ZEeD8JcPUWbqYqS0XxB/A7szku94dDz1fR2/NsDytzUcDIQKO3s1 FSbIDBg41P91hl4y7avL WtEcTHqXXlz5M1XufLQFsTXcNRO09IIeYsjbnQqNpbBiWjvACLHQxiBYqbzHGdZxQZr+oUX/5ZMSdGw8 TDRP1b9+Chi55fkTPFZt VckvFc6bgfTLVgemDg7PUsfNDlOnPn+qzhnd+mJEc/aGVqX/rSM2mH0mR3S5zC2NLrW0ov4EHOp0jL1r qc4D7OId9rVomqjS4XaX cYILHwkUQc9XJoKGV2IErO6P5ksECcXZlbIf/WdlA4u/7q0OvdVjOMyf8SGS8is82iAo11KJKtWlJCJ/ CQonNf12UgWGnYy219sl bd0kJEvyukq3s6OWd4rqOsJXvV/SI4wqcPNyWaO5xdQ3AU74z4AqNNkjGHp6/5LkVkbW5fZhw1oB+xy3 ovCz4sQGDXDp2KTXRuu8 PRJdF4dYWqgE0inntE+EhXMtahueoFDdgF83ul6uuJHqb0x5VJWI+6fSqxoTT+pjCEzSbzGJlN8QxVY2 C8smmJmdrltbA5DMjqdu N2OZTEla/tQD2saEw2isT2JC8pwOFFNYHjEj54Qwk37D/Q5CaFRjvlyM4Lfe2cYBkMv5VxYha4X5TwaM xvLo+b8MAIwpPdxy/ULl DkbW48bABGzi0QQ2tn/ad8m1BEnCx+zeGAvPBKfRsPjkIQDJKRiU477M7GNqHn8pJanNFayVXXpB00/1 Zz2r/9wNiwZVu9+sdlS7 N+RIr3Rh6cX7nz5sMqJvyw6vl0S0jYuafni+704Jd1yEuXudIs2F3PTpo52i57t1B2raV8ItB4LqqsHs slGLzBmy9Ah8w2XEGnc1 M4HnHMfzR5ZbCcwdpWFU6Mov26a0IeaECQFfqKpMzsuvwBOYgyJv52Gc3Aa0tiQegzmh+ZQehzH9mbbA 2tW/geVKi8WdHjsPL5RC O09nqYsmml6ibrp/84lovvhGuxelKr7l69tvW0HO8Fys++jnvfKC+GoCiNY0zsAF+Amelia++J7NdvYTcPa KzBLzp2vFWBRrYH1De1y mBpHi3vJhpjmwoU7gjXK/7fhYvaAvEM+ueBVptPQFa6k1vBjFkr0XBdG99vVPyevpl/SBaD6bhdtuAl6 FGrT3hODn3NOZSc9pex1 pKr3l9g3buw7J/p8IY1NUXh1cZlnQnN/idlfw3KYdDQXju6LUpNmKEJUUCBkAqy929+77Xod0k91LUnf a3IFnmSorxP0inEhK8BW sHtNCROG0tJMxX3bLgkuQKQ0aowsyZNIWwjIdh4391SThy62yFNA34/nxL4SXHDGT7F+iiHKrnbJriw4 TBVdvM7+5vZQ7u8Ub6KS IvLnIlNPGw2r5Nwi11Dv1Hp9XANwaghq/owBt5cru5E+1z+b/x5azLuU4fZ0203HPlr5CeadW2QTDYUk 6p30wb7pJ9DgLPZH0SJ/ /cErICW7+0mi5miGS/wlDDru9ppYsP02s8YVGtIJgxtoTG5pvFBLneba7c/sw2ws+xsN2NYCu+jAt8zq bAvAqtTShrJ8M4ARp/py h9bB7PLLEWZw7yb/O787TVHZmn2BbEaMjubnC9cW342Ple5FgmvFplCMv5/r+QSxrxszhf6eFEbnIT6Y KYeSvjuOW+OEuWijrYoV Jtazv8KsyFmIvkWudkNJdTzAs5OpnaYaSK/IY5WIVqXHXMmcvEWvQ4j+ygurBXH+1DLNRi0PtPRntGui 6rYT2bX5RIPo5QaUQgPd k/zVKN553IWialTAU7C9yOeIjEbYNMsPk9N7zcUqA0FlTDso2SE/ZK+u9esGgG2MeicFh96s0qbk3X7F kGKNb3g4/UhrZKpN76/K YJoqS3s/v2S5re5aobUugP44m5GklHqWZxl8Eh3SntKK7Vy6Tr2S4Vd9KAM+T6KCEsrb90yvtIle0YoD qXXv2/UjIO7ZY1uWTL/G /HY/+leXa8odCe0IVzuwgnmD6wcA8PKo/gFXAmbFJe2PPFtie0Hd+046o5ZZOnsY8W/Bg38ulFo1TxxC JlYCUly+xUnGdj5N5phx HuNbQDJGy7xZCZZl6ePJGL3oCbVjHAqUOWFIBguJiJWJZQ8OXeKzYfeVDNJEf1IgdT8JpwgbfIRqxfkk RSSyCEgjJiQSafjXgRcs XAaOLLfrsKGn5gmCc6uAtV/rbH7VshLdmiICKhD/O+l6UiU3Xf4WAWPmjldjvmwjcucoxTbqNq1Lu9Pt hu0ZoWWh5j25Ngy5suhG JNOS3ROraADqhdkUAYzkH4IHldMz0Hmnxal/R3l1XhcZ6DPRShSuBhNJbCdeuFSFkgDoGq7UB6jOXA3E WP8pcv3+Ju/XUF6XaPvl R4TucLAXWgVQCR5Urblngvl4449E0PgPRuvf+F+v82xkAFWPwJjPQCU0vrxYz3GyUWesLqAQBstRxmHf 2a0cKQMGfK2peMwEkkEL DQacGHIQdo94D/8btnOK0sxnour9ScJbWHLSRNFDXEiZ69YlbjfOSvxFXhpTCghzgvvIN4QO+MdZQHFM Malzp5p7g75O+fu3rjd3 robngShnJ2AR091ah6DGE9jp8jsG58e0wdT7kT4PfnDJSuMgD+aX/KE5eudd5BxgkGHlzhiED6hlFeB3 39o7rr/YZOUnGwe/mCRG bV8/T410cPR3xSbmNFrnuCIwXp0PBuVz9lCezDbEYHStBcoCB6xkT4qYYsiWtALlbemSTS70MKSkYj8x w6FDTPYeqskM/oYFYcrO ckCCCbeIxY+XZCniuPLQidZbBTRbMWnRMRhDkm9PkixMDX8PMQmM6YJOVCv5r8pFq0EuhEAymlOn2UeR UYSPjKLHPdN0OhOtZX3B YoYrOQSYgVB15KR4Rr+z54DoU+90SypdbBxLX8LlAfXx94MOPbTio1juvauoayV0FOwNdO1PbPJt0Gza 7UfSsWvSgiiWOiutFkJJ XBKCkrNUOHQTXAcHa8CyxMzd1PfVTrWUiJxGDDgNy42KLOrMHRC1+D2ph/PW4mwSs2lRNzqlAneOw1ur 1fZEVxrpnr35AYQF3iC9 qoTKNZq7k/gb6Vl3QCCluw+t25f8r2rH/e5RF4Y/Rizt2y4JCdqNyOHkJv8UhXqLjMP0KHi+VLlxmvy5 XwvktBudmyB5Acvq+PO6 c4SfBqD37egbLvIw5Qs3QBtMKL0kvnJcZZNI72mcmEE2mdWuuWmQj/wUXO8COvpcojEQNYZm8ADh5oEA uSCWaoTZ66ACPFpAlEF0 qGzlabVYZW528SyvcI4VfmjZbY+eGaOJyp71wSXr9riDhqu5DT2boVap98NJIE2uluLCqFiRr8s+f9wO FzRqI9ZPWkntKCG4Z3F9 rzRBdozIxBzfDp1ir2Z8E9M4zfLY6RXpqiYGEzCw4VVdW2x/MZP26rh5vdTROnJNvgr+A7E1tjVpuD5H kS0BLYGVhetVqQ4B5xha jfRWfRhDXXOMxhqgIQ2cNSKHvL/jUIzEwH2AiDxRmxYGn8awoo+gBllhmq2MB+fKSkqOnOiFE8U5T3sY GBQ+p3CDP1nALdXjumnX eO1VaBorPWeADOlfXjR933tYa/4Ptg0bun95p50tnv7pTeDVpLTMxDBUhmsCaQ2McnXyWtf/oxPEiv5J Zgg3TSlJvaWmKMKiHHOW uTmMIaFxdNEKnqlATN6U8VpiJ3xUTu+UG2Q49kYZOO6EzPVfZ8V+ZXjyHlVpoUAAQUaGKi5FOvG+2Bdx NJfAOMtYV6ZmjA7QiITx I0hfikUusPNrxdzX6DNtlRpsvf/vZuAggVJudBP32bERc8eV7BjE2nZUFEPHTKOQdONqwlWjNUdrSKox qKtkFKiDZbCY97OM7WKP CJBictToT8fGYX/pXj9/mAuxMVSuUdEcgVwUbU3XWtPFih9sAROmtO24/J4oIXxuA2ZR6BTp6SBEiG+a Gdq0LiaaDubnPMJkcpks fuLVyMHTruUECXClznbVewQV5pOJlbZL8rErLx6IdIYMYsH1nJng2T6dcLkb847CRsElim9G0famqA9d 8JH/vx9DWwUZhDfzQ86V 6GxkxWiV/zL3LoYjKr7RDE7Yn3eZV5MCbBrLsDMDqM/2Z3R0CwVBU4ASETFCElQXp4lPYFaKtyeP2lHD vRB7xiYQ8ErYDiTEDI4G fJMKRBbkuLbdvRbSoLGhBv4HK1F1sbikRxpWM5DIfShIlrS0rXulXtyrKm/lBAeWIjcF+EWz5WswfeTE 1ssoXcDbKzh7O6HX3dEY yheLAbbRW6ADUl3+oXbeFz3FcbSV8iP6lsBXgfG5oyYf5JrxWpis+0RpnhgqrZtMhOC6OpVuK8i36Dzb TJ7UNBoRRWgvcdWmZAhM e9wLHv+93cUSIMZIrdB1GqbdTe/KiOQZ7EBRxzN6BSApcGiG6JvK9PBOgUe2WnJNStbiNCZZkJ8J0jTI EVFKTLgmjJpfUBHSc+uI +2Xc86Adw0dFpwGUfrtX0QmYBfocqJM9iEre1xKbfncVG/sVgP0TZT3edWXrCfZ3fuGaUwsV3+WhymIc NamRZYwGp1uWIwuzg2ZA 7jbsVxToALXE7sYUESTvyOA4rU9vI/DgBiWF9EiROJC5j8fTV13FyOHrCnW1DmjUlnU3XTlIO5oSktgY AMJdw/RFpVZwYBzcD/h3 wHxL3azdv0ff4N2CbiTJwj/lM9icnKF7mrVAzr7kpYSZakingIhl4S21o6PLEzDXvdJ3FGqTqgtD7PIQ SrXwNEiYkIN6ttimFqw4 JgFiwsQD6mQGPHJ4OisO59d6EoHdpSqMKAX7xGptJVMhXmV6CjAQFtWkhckAJlqz0G3/GodaMvsBSotK HPp3K5agJuAoKqZK02XE CoCjfgdX8hLmZVqIjkojec3MEXnfk9cAzJ3in4fJuqBqgtR5hvIwPqPaN1JDN2J5uAkFbxMWQx3PnQCV hZHfCYOZFBLJoaX7fvtR yJDccuoP1zWFW2XTdTN+6ZNo6xR3SkaFXbL8CFC8J69HbcJwfntuwxpoNiCaSRscCpVXyXeHvlBeeUZ4 KM+agpYQOGMHp/77gA/c Pp20K6BUsqB7Ac3HosK8Jids5ZHPEimC+rIgrfjHSn7eNhs6mGAgVOj4Kd/rz8odQ3llDAQ9DwZnVPJH ZretxV6jK+DY64eOpDhk LkvljkitPuKBELV7DeEB0sTrynS6fv5Nh3BlLyzEhqy8B5wO3kV9tLydVyKmxq5wdwimGFk643l/Zsy9 +rlq0omukYOYb634ifXf 7MGqRZei984qLaLM2q/TzOZ/zmq8uIy+nJ8VaWm63Js9bY9lMwlC5Ex4+5N5ywadP4Bm8Dlb6uLqK57r vyrAgYNLhkGMJYRAzgaw 87VPFWT5/h/hhSDBAvOgtksAJFCOvKCJTZzDwNRIYM1fEfUbrEsZIX5pOO43yVmO4OsihLuMBjqUzMiD hPVCJBGXxTlUG95ITsi4 P5UPwOxqecPcSoetHmm5EC6i12Rpj8NkwWGRF+emAX587cpjY5Xsu5ng+b3aO79QquyWA9291JjWUdFb sARwev7y9KGZdnaXGx8P ytna2JUxLnf47aJuXoV6MmoCN6NqDGAm2eUp/Ym3otDPu/zL3Vc6chUmq7R3wWEipjV7nvNPZd2UJjZm Jb8/NW7jLcQnprKyv6yJ hOTpMfA6+NamdOf00dM2mCO9cAEtb0bG10xU9dR2XVD2Q7vBla3kENrhqGUK9ZzWM38nDsRBPyfaIn2z 2T9l3AOWTdgyHC4ChdyS uOL7850LkVLnENxY9tPBX4dmRUxkbPjbRp9R0yQsJyapf7T95IPZZDsYc1XYNlOvS3WUgTcovpQqzHAs hi6xfnHaVTot83JGeaKM LXqAneGA+w10RfyMtlWrYuSbHtbycf+vHpca9CuSaIZJ08W/RpRceaBPdjE0tSmJeQQmEUV7GE29ZNYz WVDTSusfP3smOKPXYvLk SGD8UBYVGBnikAPGEzXvb424LDwCENZQHPxr/7+ZFk+eIFISu3rQYOTA1+UQ04+S1luuKrtaUnrqzN5a U/YLqwVSxfbgfTwgHttU H01kiRb1Cdu1DTFfSi2/5bNb1A9fUe27cfQyKv34zemKeFIivj23q77a4c3KiWCvcBAbNvbJrVdyR2Zw PzfCMaIMzVqN4OKHSPzM LcIzjzTTvILAsmpYMKmYetUWzZlefPOE0FwET3AUJcqdDKGQmx6ec4b9GyUJiY9leSooERZZI8uuzVRv VaZTcYNylrkcAqrw6nhw kxCESYtFkLijkyNvUbUTt98P0G10v0rYdEgzZk5MInEp9EDJqkAsLviBkhjRF2Sdkz+GufiLlPj5v03P J37bFT7GvOI3UHevMHG5 yp8HYudGzHHUnEkL2DqMEWltOTThrXX2GMU3bnAHGyo9lVAKa0kLLlx55naNnk1N9fmywU9WnXURfIOS snfskkOO/6iIvgovXYY4 EtT7f1goYcmyCymcEEyC8eikojZDhR8JYfMaybhEDktpsUwNQfpPcVrOGLXOHHKK+Xg08+BXXSjT2VMR j6fX2Y/do98/WQm3mGEN DJ5zWryD4x1M0mkN8pCrL5+P0KkMotZRNFYJo08YJVBy5YquB7GBrvmbJ0CanVVjP2opLOhG0cnApw37 LEC+KycgeKFp90qig48L S37LEtlQeXmiaT2cTJsO1ryemxJ0VA9C8kDhrKRHOhdqx5nSWZCEEzE7E9HHUpyVLUq5bQkfUPyZCXui oF2hRcZc+KujQT2sZsOb ogB8FTSJepFFARm4GeYHYPyWMxJLCEieNPwhg7Zne/ZdaDKoLRe8QGLW2J7WWOG9uDT8CEpnLMRu9X1F WALP9xrdrTSJU9ztSbbS u3Ocjlz5oh5g8e5w4sob0kCio9Gru+wIj0se7IYsd2ZEx6Ok2BwtMru7jxLIAjLz5I/Qy5L16Ev8z4S5 joyV9nFeMhKMynd3lqcM LLheR6XnaE/t5flsykx0n13uRj2yL9ixTCGodrwXiVJzzuVHWpWUGQK6vS4PDmjDqy8zCqSnjUTvhV9e EAlB1YqQ08Us3RVy8mFE HrsYqVFySk9zSq3PoFJ4NPhB9IExMIksy0jiLdKzLRNls6ImnXfPJhLUGIfcUZWGPyD8gs7JXJB0kMri axFgOdrmDijv6bo6yY16 Fh5+miRjtsAJr+5UYZNsEeBUVmrG1DHZBx4MiY1QC0WU6mVX3ddSiaypMeoFnZpfwYyZiCMo5Zm2mzgC OJdCYahv7BOZYAHMWEfI ugxj7nitXX+ME6lQH5o9ZoisN9Si/uuYLYEzitRWWakaTH32jp5nVHCraV0CoFYi4oNZ6YacvZOenSvA VUPI1DBZ4jRpKgkHGKob 0ZeM2ivZudq4713/8Je3oC9x8XK1X1fPIiZQrcZaQXc6Il6RO0UEx5ntkZJ/pfIss8/UaavVkMNUSAYk QR64Y0EPuqcL/qGeHVSk 0pjnqeBcrUN8pbGrW2R/u/O62TF/I/oMPhX+xr8dy3EepH0GKaOpKB9bxVSoaQRcFukMPOXhNS3+fEGh fLKZ3KNrhvhsi3DA3B8h JWEmRwLhcGTFUvZ6gm3NBplcYpqMIi8psnZlU7REmVfLQXUNuI5R1LziSsoJJNYKQhtS14AEziNRR4K6 nmioh2dE/ydPuIAJf9Sa XR9fQmzU1x3SZhgHp8NqA4HYB0Id+PnPxU9wZJNVMPcaRTVwRJkxH+fzOFf4l6+EJUq3yzovUkiy4yz6 mjVWWZ7WmOfgXDIq5CPR Hs6yfqN6JXm/TAtJqJWxA5Hh1O3m2BjHV6TmlSRy8xITz3DVevu/f999lVbwDLUcH9Z3x/xQ/fBvDY1e 8oB96S/2d5aKEQ4SuW8S haljfN84PItKG9TsmqXZAzmbIY3EJP3lXpWyotCWAZ4VnciaboRG9wSeiHDf8NnyEVz1WDLCmvxPx3h/ zOLaFeDnNhykcQm52Z1D R4cqjPwUuzvGxXO/9z9Q+AB708Kg+9tIB3a+rUs73ad8PhCwB0b7b1pWjzZ4pUmKCk96U5kSrBpCqXG3 KtulkhVQCobbhvHDGYQ0 mhIt/AlYxp5yjPUMRKkAi4YYXJXSbUHVUQXsWbvjuWCFLqHMaKcEKMnZKxkWinSltZtwHHWBRXigw1HG U6U39klTxWkJtXtsF2Gv BYSX5CswSYCbXwJodS9Wx7XwkvgxpBMKg5rxS4SD0teUY0BuLF2K4oOddYNsNGmHgapvSmjy+NH09ZTQ UeTEfIsPzXRc45XzI9SM WPUJ5jUXY/vkpG9TZ4R6l52gRJGFsGoftPQVpFhMMdpGt7Yr4PDRbv2G/ORO7B5mg4U6sJu1wGAzDFwM VEMEVqYZpIBCufzfPE2N +7I2MXvFbcRNPxoxuRSdd4ojBOyRzrzzxZ3s5nei9R+EY6J4zOSgd0IoaEzLmUCmhqgF0PaeQOSw9Y9F h3Pp8GikBzgUlcL35yqP rm416srUI+d31UIu1DZZEwkF+IOI3Qk23qZKnhVfyRRYP3ZodP0Ay+T9mqpNQt0PfxtysSNW8V9Sx4E/ 7fliWfgs7gXnfg8jDBK1 dLOALnsuFQrVx8KWbJp7Al5Ie8W11H7qzL6MH+jXYkrOkKO+4CwuDSpDjPJ1TmyzZ8xRcUIz/Ap2pS+w H9HpdwnZIF4H6N0WxYo0 0ddcrkse/i6Sirdzi4DM0gJL8YVQh0qSjgMNk9DEhW1sRXLC+0gmYitAs4pCrMxYACwybCQYpMAKfwbr 1HhMeqBe+TVkU/J0Dsay Z23rJf/DKonr7+fLSe+TNYuPhItqBIzw6xJgG/L5l9/aePvJ4gx3k46yUCsGXnXk0C1UxrhOpuVyqjXh vJywaMkWgUNYyN1ZJQWd 6h0rkMUqreJyaxVzmKIMOFwDZt0upGaA1IcYXfvpLxrG38PDyYPgY23Bn4mEnEwan7AnFuaQW5jzCWVe 0p0AGGchKnXhCA/g8LR0 loZhHKMKIj6699yHov5XRGfr078KDlrVnXkEIhSbRnNLkEJDwUqQOOQduTzMJzn5HVDOrXRAMsrVTD4p cxLJGWbnb3j3Qv4fVZVT jFmsT2bGtXjOU94du+8Z0p8zCImOQZA0FHagWcn+c54aB4Jm29lRzBxz13EZh4QoYInM/CMQv1S9WAf9 SEbCQPQqMjqeykG1RO2M vaX9UbF4f22xqgQ+wc9OkIm1KvYHT4M25U/kBJ9RCEwKwWJAMo9Pkry5JriX9fvsqWpwt5v4kkps/NO9 bayhnPJeJFgJnihth0W1 5Pfpk+Cjy7KdCZcENsNbNNWc/cv0sGtgpPpfjHa46QomcUK+IGTfHz3h2pQD0bLcw3gCuFJGPEarub/P pgZhTIzbvvu7PYy0hKec ikJAUFinRG4mG/1Y2ja25fHxc5pY/vTflSziyrz8t7NpuYyzRQk4Wto2f9RuvtqGMEVLd7rpGKbatXQJ 4B8tE+9Bq6GTq2TUx3qb PTXH+A7bOIh5AjdEVfs/gG/X/GzvwmoproZH4If5L/cdXgnHdVvjL7BzutjBbb6U3YHrInE+Q1QzJQpm 4tnqbgX80Mauh9TBj1gQ O0jYmRRm9kTxYkoec6JLx4V+r53EpZis4qp0o9OYUpqGmMpd+T9y+xVC/B5x/WzfhBpnuXHDPJ8mo6a8 X7/6HDoqJAAUdnBX/uzD P5trIIlv99ZqdbnUznncu5Kp0xnxdHJ8waJebIbHD9htDM16aG4qxKlAEMEPdtU9oc4i4vr1iwkHlSuR HD9Eoxuz2p04z0uK+SXH 4us10d9da7uVPVgJ0HoRwB8/v1ocxeTVjvDugmFXGQG3mwiX/uh227Wty/hRXGnqUXaejYvZF3YXS7ll W7XiNNYCLWCvsxjOzpx4 vUV4qylYZYd2t2N3Q5k3d9bZT/lCvGt/VXyV6+RdQCsy9BwW31rYGB9DwFUxLv+GCZGBYVPioqSpbikV GLbJYC3r/UJ8YJCQGNFG 2nv74CbjhOl3/XRsvqd1+KfS7WFaWm5yvaeUHUPNMwqWKihu1V0OuRUQlktdwjKB2CBmfJunAM5wM1oI WoJFJZT+Ybi0E9hTWnSf eRqlqwfwmqdg2DtQD0HkXPQqcv0js5UUp28GhHv8LW2DVssc7UI0n2OoD8/qdb1f8Nc7y70TQ9tZt7L4 VSaq94mZKezSy4nB7kyL 3mUe5UUEyvrjDl1YyHBS0n6T07bLmG/qwTJ/75iyZ+olljg0ySSAwqpCS+ALCe+kTd/nw5SSdtzWDHr9 5MJiBZdYeSr3cdLZRqyf 0D7WZEaDZf2liNgLNhnLrEdxA8PRr9MD06/KD+vXaIOc6aGvM4qfPJE6KfN+0ZJXkYd+9k1n4IdERAvK ZP360+S2TIeFKvopNSaG 4n/4cBXq1g43apMG+MkWsqgCxcuXLioQcRzYTHJZwq7+dUd+sl6oeOwwsYSWz4va+50YAq6V7g0QH8Y1 uvq8arsNUZZUAKG5aGuY CjPIZJ7tUBCEw3cjiBGkASI2sXN45313BmU/g0saq1qHmuS7vrIHtm49DXT4di+l/VKW6imfsAkVpkWF 5hynaAMF6SXhWAFYlq0D h6hM7EBQkbqnzIzXrK+T4UqqG2SOIE80Ncem1nA28ovNZqp9EcI+Ur8u5W02YAh+hRbBiVJBfY7dfH42 1M3UrlQ34NUHOZZNQDID 1brztxD2wGy8hYDWgtx+7+RYEG+RXl3HZLQrVsc4dyPGn3pvLscjMVD5wYoXZmdtGB75TLry3Qn+e0Oq gunD8tmLk43GyQSHzCzh 2eIEpg5FBaNeUzLjHnwCjlohtQdxyrq5+1BEn8CNkNg1LBA6sXBDXt2BXhlOXaOL2JLkjhBtky2HCWSX xrujFDNwr7QajHYfNUwA zQwzXegKkNxD34Ztw/tiZZVBZQDwDChGGgy0sGHor8VPKLGZNxUBmOt9NfZ7bYxYtO35fqBFNzDz0XNj 2xL411BOC1gWXx1E6dme u8PgDhNnHjNG1fBt3tQa6hEhq3J9SE0TkzAqmzRosfU3JacYvfGmsYTWQU/U18swOapCYnfHxDplse0e Vm0OHGSid8a81lo8PlZH Us2wNdyzmkXV6OuDesxdUpJkfxGAmv3bFLRKZIig7ndIps2Js0sMC0NYszGCU07iu5aC/Owx1YNo3vBJ Y09A0Al/5qZ82WYhy3ic LLvHLx1tzl1jtyB1jb97JBjN12y8SfXhs4zYL7TJK06cuLhUB19kQdxo4AH802sMYb2XamvZY+j1k/Bd kn5+RtajThfsEvj85ymE Fh+oLBq5C8dNTgR6zsPa9rjkgG0UmefqPaXmQGcn4RD/ohF8hOfF8r/P/nT2FdanVK4WEH3ctB1mq0t9 TiabMh17Casmq49RUHRD 1uCYraa7bZnfELhJ5h0Vja8D5FsutA3VDg/YtMUzZUtDCtRz132kLaxN+lYrp5IISSWJZoqLXsSrf1dx bNVl6uTbxVFf+WwVEBkb kfw3slmayg7WS/RtjusBLVqnNnsQb/tfuJHFeKxKadpUuLhK02gyFY3UPPU0zsmT5pNQ7pWAL+W5j7am 39Fh5fWMkmQp2wf+Rpm4 +c/zJmUg9f28k/M5xNm57VeULMdV65VE1H9Cy+N0I1D96K2qLuFhpfFuv4wr1adKqOhJLOfVj+YKgVlR 5aaflRiLoFMbwM8J6I1E Ld27KmcNekxkkhQIbw1D/D7X/UZcu3rHRjCU2vpaCsM2j0kDmv+pODOELalZczhR6HO7pmxSX8WBt6d+ 32+O/MZips9uiXHxS7UE EwGXglHr1M2VjKjM1c1VEtBYRzfdyMQyebQ0soFt7Ho27HIl6PdBDHIrvHWJnberzD6RDpEz4/tIwlFD 5Yf+KCxB6TJWdjhjRYgL w0a1r3sT+dt1v+7v+fa2fKz0+dKzb1QXA738iepeFCEmuyVOOMrbRy0/H20/ljh9m+Nrcqt2IGpkf3wG iV3Sb/jcck/CJlSNWCB1 E5wzMr3XekOnyFVZYvMQmSb0l9JNmKx258D53dfaBg6WaAmkqgo9sZf0JyHSWB9ZXilVdeEAWPUVIat6 lYbY+c+r+/dX4VkN+l7H Etp//TVSGTjX6thF91liusA39aAC5zBruv/VKvAi3s09UjrJzL4D9FBDv/pde+WPo83B7jaz2POVTb3/ iwhJXWfjOuHyfajesSMf uwW4MWT6tHMIR+qvVkba/edC3Ny9oW5I2QRyLjV8R8FAVaO2Yws45Y9N2WvHEg5GbNlTfLO4/yybRN4Z Wh3jpwQalXTiVWIbhSpf cxVwTQE0bohpg37LXwBJ/ktx6f9Eda5k67QaeTJSD8s9LqaCp3cjcK/f87gQAB3Q6vwiFGw01MHhv2IK szxPaIpq3cI5aBFsoCId t6P8uE4674LVosPwxg887r/rlXdqlfLPqeplFnXatnYx+UMleJIKVbPoJncmUPfjKICm78RN0Hy++nxJ ko/IOpxF4rJs+xr/d6zx Yj0YPDvZF2cGpn39Jn90w0P3gQX4pzOd+XrZcbzwvkbQB6c2HZ1qJo4pTKyUkfPqG5MTTmKs99QgH7q6 ufit5PX+Hh/CZSpVmex2 Mq4EefTnI2aYBMCj6X8zfRZ7td9FYA9CNQdwxy/3wj1szLtgqeFE14hjW2sEvDCC4a/6/J9t2ChAzgK8 el8uitkHg06usej+rL06 mgyMmMQJVZiU6u2h+b6cpOibeDwuf21T0lwa43c+1jb6/bEAosKHGMgYmeWcBMCotaLD7WdA0YiFvZVk UtUqDn80e1M97WvWiypC L7sak2PbHpYPU5aM1xW2QNOM+dwrcPsg7S3wPVXgEv01BNdrB+lk5QUH4uX5zLQ5ux/S06kf931iawUY i62Qdsfr4369GpSQhc/O HEGmPDkjZAWwm0S7h54udbNbQhyppYDbWp4AdiOpXsIZjSY4x2huWlVle3VFHBoS0VPQj0trEXy9FaPj fTRYTc0DJwt+eh8694o5 HcHHI4eFHrRPFIdVa0Xk9tYl65MrD/+9h/sj65e9l7bh/wRZRxsLHSuDuq+EgyGXAvj5/cXGeC7EvJ7D pSSbP28waVjj38dRAkTM kVkmDsW2X+vDGOc/dSRcNBdCfiMfMSqTmO8HQ/aL89j2n7Pprc3dBnuo/stBdbRTe0jnNKCCtjyCj7mk ZJY/H820/J7B+r3OcDUB PuXjz22pjz0uqoIjHcbDyF9n9BiRnqtRlHlH+c8s3VdXR7Y7yDlrhPU5f3Qx39jpklj2flxHFYF6boNb tFZX+frfheaEcEfh7s87 WNn7BXtqi+4R5KKo+3w+Pnl2movf1ADon8Y/a9j1/HJhrkyennnMT4c6vzDGhjMWZOdnaoLwouYWl7R9 UjXKFN/UJ9/uSSZMTJ+T lfxeIi/8dQn0FWiZTojuVmMub3nVy6cPw3EDNVq3aaslSCCLqbUtcHuxrCdTrjG9wJxn/Z6gYwLl2HJL gPBHd3pjzkjnDvb2R0LB BW1laUmZsvpEwVJOvOoHxQFqR5ix/teJGPd+9r8gH4xupkchs6h3C+l0FF5XSPLkHwavNVxVa7zrQC91 GeCkKsuGR50FOvuZKL+/ oyTF9gphT49nhMIyWMDGeQrbw0IVqTj8NzPyP1FNcRt4W/UkgLS2yd6N2Qs0yQY2KW5C8yPyNEIimsZQ ppaBPNkeW+DgeA7wT5wh 29Zp+lF/pRnC5DIBWVQjgVSa2vq+crqlAyIZWhdG3vqIASq/xZwNSLsysBHJFNTepqY5I5ufuZOFgshG BiFhJmlVkS/suntKIY22 KKxpKmWoY+VkIpodNhPoYVoh4ms6ADQSzmLk7tR3hJG6DDqceOCQCfGy1shIdUxmDB8QY2Ewh3izHBYb spWc3O4ZzgdMy4lKHJKP LpexSAPNmSgCs6liN0VD4qwHsWhRMy9qL+SBDo4rvNQapnP1ZafScDN6LPW154wJgm/gxePR0wLt4gGN foHaEU6iM4JgKJSl/Sac 3EjuLzNS5ndJfOZehb6m2YvRcYk8QjfOjmfHpelTzhb1OMN2Wg6IE/uYhcJF1F1RIDxAfvsvAIn4930V w76H23SOtorz4r5ySKpk l6nuN47U3Fwcbdkzi8vJQeZ0c05jq/cyHcBqgg26vE0iSxdF5FRYrPjuF/up1u79O7jYXa06GtQ6Yfd7 xLg9qn74imkDVbhInYdV BNrbnJ0lPgr/bj/aH+xs33+rqhNAQK+AdEEPw9OLOe94h64H0nA4fMxEXI8yBr+RXZstJNusFhYRpetF g6u0UeKoVdDRFE5WrNOs tUVyGnwjxY8p48DQOMBvWenHy4jX39f3TVqmrfdqLX86iAr2+5JoX9y73tFiQgNMWBTnDBlzSERzZadw Rh4sdFmNwuW0HW7IEBK5 nFW5yUlyr68dcj8P7Oi6ze85K9o19ZK0X84AH3Kt8QE21zii5uEHpkgfx+YTL5Q8XB5EGMJf2L68IDQW VlHxaLEdVgYlZ3sXy45l oukzE+2zsLsXKJwMGWU1vCU4EiuN+EqQHutIl6D1HIBhMhgftInvphsYz49u2l3F6Et49b0UuQjGX04Y nE5dYXuBIrnXiTFmCoNe NiHYpvHisIZJrPBr21+NicbGgbYBtF3vsObiKnZnFgCazwPYaoNzfki+c1e78L13NAFnhSsymeyPZrbr slNxxbr+99gbTzN0EVpr W/IwqjmSXui1pP5tguyUstVS5yvXJ9sN/Oxfj5D+1LbdguU1kayRjWyG+ePlBQhhpncpUhaXbNG7bB8w dZjs1rj35OlZ31CWDHvo FuJer31OPE0hgLmkQHD3tK69ws2/FWi4lWFwCrf/EuitgUIYFY4+xzfaAiTM45E6dKXp8sd3D+sHd/ep 6uSTsFwgIMbPpS8GvxCb CKmfNHABwzikkDaCaDi3mf3ABb38J+GlxOvh63Vh3UwJ29rj6CWsk0fZBaVTSyJYc2RyeutSn7AgcDyw Hi015+rz/JLgiekPZrAd CdDdKTRFWpzeM7pPv3/uXgTsCKqBo+AsNBDEYlSr8MCpgBSlzl8+0RtDBiStmKVqfdGuUIchLYYcP15v hrhZ5Hwx5cYJSlFdYUkQ ccpdtkTStnyFXQUKxhyq/hEv9HrYdxPk/Xzx7gK494mBr7UZrfrKlYoQqvxi3E65ygUGZI3mnOcYBJyM QG1+iyzQVYfs+uqDiM/V qHuBJcP7AISyKUIGu92n73zsQhTlbEdtRWNy6JndN6wAo8Xaq24ydiJxZrVLLDo02s3vIXuhu2VsyOID QL6kaBYnpK7kzScqinBG KMNDHxFZLq696jsNAPSEUH3+1Xute7yLSrPMBGvyofo5K7o98xenIzkfuulys5YXVvUUzMFXhJtUmZgG d3L7Rf4bpF6l4vBNtokE DRPXBnvCHfgVk6LPV2qpGWW04bmHWqk4+oli3M6u8VKnrDtc0Y5qFp+bTQbwiXZ8elCV/6m8j91eSB1P c5+6bVlg231zy2VLQ8Kn vH1dWyr/rSFsu+Cw/Uzc0/mii+yi1eIqy8ICfxUIye1Fm7b1Q6PQPWxhYUbfHrd/UcrTalf6cDgRXLZH R18MnKaR0TGs/3cRJnRC inI21/LfqJ+LrR/M+Vp536/Rqei2xKIgggdPRzyrCw3omDxwe+F7Qrbku2beC0sjzZC66ab0qPCPnqHT e3/Qbe2rcjCYL88yrbh9 jTK6yTKAZyzRanF+BLRRctFNwBeobfALBgSFzVxfdt8KG6WtC5HaU3n5X7I7km4raZwPRajdVQJYom+k HFz77Y/S6GR8Mo7pXoK6 1WU2tuz9Q0HohZEMJ+T0k3Ik1/yWIgO2hnkXfR11wy82zovTOqgbOGtnnE5hLvoTcpB8ykH3HF60j8qj eStMM1aoaI/+cXrmWTHV ix9Z2N+dUG6dJfPSq2FIO/7iMnDANIgLsuQ72uSVJAsrDUtifBOx7x5lp48umFCIeVJMlXjnBqG/u5ir gwKI90A1Ng0QoN/p5VN1 NVttkBo9GrXfiA/pu6R5GUE3AnWgi5IzCt+EhB6DagqPxGwyl38YM0gJl92xLzfCEABkcGaLSpjK4UmA SOCaweNPgX5lTh+/vLzc f6UVyplIEQheLiwiVFyNUbFfzem1g2AGKu88meXy61fffLUavKlFemvP8VDwlLHIFUHYUHiCufkcSOM2 wZy6Nzb229trCl2FTvIl aZ+P1xJ7vttMW0L63u2uVVVXL1qNuggt2QzfX0hAAzkfy9pAwKqSpi+HyzV6JucoP8ve7nGPF+rnjLIJ /Jose+g9OOtYHbWHUoLL4 ZIRfE+RaWZLHcJLYxxp9USq1wrH1N//s8pIHQYjye4Ix0Z7a5DzxvMhS92O+27ifoHv1hL5zPJMMrLzy kufiZEhqQXIFQ8if9C+z QSH6J+YzWt6sftwaM61Kxz3AygEK/KVpG/5GNUQ0bj5j6m6wZhV51eOt4nwvg8uT1IFbDyGfTRfTqMkw uTRgtFGKQmc6Jg9oS8Cr tqfTqG5tLkfNFA5DN90bwNkUJRpXTfumypL7zwpK5S/ka2j/XaFZd9VOHGOsUrW2QPwhtJsgix6o8ll1 Maqe2ajsVfEa6Xz/dryI Od3e0eQrq+4aVZAl25A/R04cz1R/4adiMKNjOVYq2MklZICY6MpRtsIQMT5dIJVN45uhN1fsEMf6jsR/ lECBvl46XAOmWZJ38Zvw vnlZUx6aYaQ4qVojlV4Jt25q437NbpC7SPLOIFTdaFDTIPAs9ckjqKIbCF+Jfxmx4DBmoGw60iOVy3RD fOZ14HOV2JbP0qqp431C a38z0RtD+xta1v8Llh4zihFGhNtd9wW3Svkce+/6xhzBgUGjINNtvyXLcScg2Ux6tqCAzxEJfuEpR/oO TsKL5AyfpkD+ML3CbXoR P9ij7NLNGpxct8a7fqJJvCCD9Ao177bJV6S6C9G5bwVXuFutlsTu+dHyaiHADMqRGaqsDpJy3+alos4z KWcv3sD2GLKXyqIdP9lJ iPUBssgVom91lDsV/Rbb6fyqnaHyat1e0p8AH8Qw2/U+u9mP+Osyew81oT3eROsj0I5jMmTS2wBfDG+p /qKsBQJVEkhy89eOo0ye G9NpZxsVe0P15v9IiwJOaGBfN9m03igGljgOw7+q/gkEZ8T3KMZcOg9apN7pJmZkMdVjsFKfewn+ucss c8Xfy/tD0/qNWplmDWSv r1ghjimcCA8V6tz4XpX3W4KkV8QAw1+mDD/NUOQ4FVXOlzdtA/1TE9M7cGVrEA386gfx/8wZf8PmBFvh 2Xc32alrPtjvFyLs8X4Q zPK2rkU1h7MKif859mWEpUAKZICN5sJd3vYleFjqZqkO7fUy5ECSoKdhurhD2vxuLVpbgfzqlEg10AA9 rA0V6mfsrsJPXZ8zjSUr FK+zoKBTcURjLVf2qjStJptdJqoL4HA4dyVwTbmGXqLIAiWQnuZRCDgoHMDvI5WYQC0pSOgSjA+H2DV/ +ZNkQ0FQLRESQfMGqHcChWN></span>
</div>
<strong>Patient Name</strong>: <span class=clinicalNoteMacroWysiwyg id=[id number] macronam e=PatientName spantype=macro title=#PatientName>ISAIAH TEJEDA TINO</span>
<strong>MRN</strong>: <span class=clinicalNoteMacroWysiwyg id=[id number] macroname=PatientMRN spantype=macro title=#PatientMRN>[id number]</span>
<strong>Date Of </strong>: <span class=clinicalNoteMacroWysiwyg id=[id number] macroname=PatientDateOfBirth spantype=macro title=#PatientDate OfBirth>1985</span>
<strong>Today's Provider: & nbsp;</strong><span class=clinicalNoteMacroWysiwyg id=[id number] macroname=MyName spantype=macro title=#MyName>[place] [facility] [place]
<strong>Date of Service: </strong><span class=clinicalNoteMacroWysiwyg id=[id number] macronam [...] frequently. 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
<span style=font-size:12px><span style=font-f amily:[place],Helvetica,sans-serif></span></span>
<span class=c linicalNoteSectionVisible id=[id number] internalbreaksection=f alse originalname=Med Onc Advanced Care Planning recognizeconcepts=true&quot ; spantype=section suppressempty=false>Advanced Care Planning</span&gt ;
Not discussed at this visit.
<span class=clinicalNoteSectionVisible&quo t; id=[id number] internalbreaksection=false originalname=&quo t;Pain Plan This Visit recognizeconcepts=true spantype=section suppres sempty=false>Pain Scale on Today's Visit</span>
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
<span class=clinicalNoteSectionVisible id= [id number] internalbreaksection=false originalname=Pain Plan Th is Visit recognizeconcepts=true spantype=section suppressempty=false>Pain Plan on Today's Visit</span>
<span [facility]NoteMaThree [facility] Hospitalys[facility] id=[id number] macroname=PatientPainCarePlan p arameters=LookBackDays:0,ShowComments:Yes,ValueIfNull:No pain plan indicated for today spantype=macro title=#PatientPainCarePlan(LookBackDays:0,ShowComments:Yes,ValueIfNull:No pain plan indicated for today's visit)>No pain plan indicated for today's vis it</span>
<span [facility] id=[id number] internalbreaksection=false originalname=Smoking Status r ecognizeconcepts=true spantype=section suppressempty=false>Smoking Status</span>
<span [facility]NotDetw[facility] HospitaloWysiw id=narendra [id number] macroname=PatientSmokingStatus parameters=ValueIfNull:Not recorded spantype=macro title=#PatientSmokingStatus(ValueIfNull:Not recorde d)>Smoking Tobacco : Never smoker; Smokeless Tobacco : Never used smokeless tobacco; Vaping : Never vaped</span>
<hr><span class=clinicalNoteSectionVisible id=[id number] internalbreaksection=false originalname=Depression recognizeconcepts=true spantype=section suppressempty=false>Depression Screening Tool Status</span>
<span [facility]Not[facility] id=[id number] macroname=DepressionStatus parameters=ValueIfNull:Not screened on today spantype=macro title=#Dep ressionStatus(ValueIfNull:Not screened on today's visit.)> Screening Date: 09/19/2025;Plan: Patient declined treatment</span>

<span class=clinicalNo teSectionVisible id=[id number] internalbreaksection=false&quot ; originalname=History of Present Illness recognizeconcepts=true spantype=&q uot;section suppressempty=false>History of Present Illness</span>
<span style=font-size:12px><span style=font-family:[place],Helvetica,sans-serif><ol> <li>Patient reported that she has been anemic [...] has heavy bleeding. 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
</li> <li>IPMN
</li></ol>
<span style=font- size:12px><span style=font -family:[place],Helvetica,sans-serif></span></span>
<span class=&quot ;clinicalNoteSectionVisible id=[id number] internalbreaksection="false originalname=Medications recognizeconcepts=true [...] suppressempty=false& quot;>Family History</span>
{ }

<span style=font-size:12px><span style=font-family:[place],Helvetica,sans-serif></span></span>
<span class=clinicalNoteSectionVisible id=[id number] internalbreaksection=false originalname=Social History recogniz econcepts=true spantype=section suppressempty=false>Social Hi story</span>
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

<span style=font-size:12px><span style=font-family:[place],Helvetica,sans-serif></span></span><span class=clinicalNoteSectionVisible id=[id number] internalbreaksection=false originalname=Vital Signs and Pain Scale recognizeconcepts=true spantype=section suppressempty=false>Vital Signs</span>
<span class=clinicalNoteMacroWysiwyg id=& quot;[id number] macroname=PatientVitalSigns parameters=LookBack Days:1,ValueIfNull:Not recorded on visit spantype=macro title=#PatientVitalS igns(LookBackDays:1,ValueIfNull:Not recorded on visit)>Blood pressure: 132/76, Pulse: 75, Temperature: 98.6 F, Respirations: 16, O2 sat: 99%, Pain Scale: 0, Height: 66 in, Weight: 179.2 lb, BSA: 1.91, BMI: 28.92 kg/m2</span>
<span class=clinicalNoteMacroWysiwyg id=[id number] macroname=Immunizations spantype=macro" title=#Immunizations>Covid-19 vaccine ([employer]) (12/22/2023), Not given other reason; Flu vaccine [...]
</td> <td>
</td> </tr> </tbody></table></span>
<span class="clinicalNoteMacroWysunitypoint [facility] id=[id number] macroname=RecentLabResultsTable parameters=OptionalFlowsheetCategory:Tumor Markers,Label:Tumor Markers spa ntype=macro title=#RecentLabResultsTable(OptionalFlowsheetCategory:Tumor Markers,Label:Tumor Markers)></span>
<span class=clinicalNoteMac[facility]unity[facility]" id=[id number] macroname=RecentLabResultsTable parameters=&qu ot;OptionalFlowsheetCategory:Immunochemistries spantype=macro title=#RecentL abResultsTable(OptionalFlowsheetCategory:Immunochemistries)> & lt;/span>
<span class=clinicalNoteMacroWysunitypoint [facility] id=[id number] macroname=RecentLabResultsTable parameters=OptionalFlowsheetCategory:A nemiaLabs spantype=macro title=#RecentLabResultsTable(OptionalFlowsheetCateg ory:AnemiaLabs)><table [...]
--- OUTSIDE RECORDS SUMMARY | 2025-09-28 12:26 | XMS_ITS | CCD ---
Author Name Interface, H2Bsdliuh lity Address [address] [facility] [address] [address] Organization [facility] Address [address] [facility] [address] [address] Care Team Providers Care Migration Agent Name Role Phone Wiliam Moore Unavailable Unavailable [...] Group Identifier Payer Identifier 2023 Active Other [id number] 2023 Inactive Other 519 Diagnostic Results Date Type Test Units Lower Limit Upper Limit Result Flag Comments Status Ordered By Specimen Source Lab Address 09/12 CBC w/ auto diff Scott # (ANC) K/uL 1.6 6.6 5.8 FINAL Wiliam Jain [place] [facility] [place] [facility] , [address] [place] [id number] 0 09/12 CBC w/ auto diff IG % % 0.0 0.5 0.2 FINAL Wiliam Xavier [place] [facility] [place] [facility] , [address] [place] [id number] 0 09/12 CBC w/ auto diff MO # K/uL 0.2 1.3 0.7 FINAL Wiliam Xavier [place] [facility] [place] [facility] , [address] [place] [id number] 0 09/12 CBC w/ auto diff MCV fL 80.0 104.0 88.7 FINAL Wiliam Xavier [place] [facility] [place] [facility] , [address] [place] [id number] 0 09/12 CBC w/ auto diff IG # K/uL 0.0 0.03 0.02 FINAL Wiliam Xavier [place] [facility] [place] [facility] , [address] [place] [id number] 0 09/12 CBC w/ auto diff MO % % 6.0 15.0 7.8 FINAL Wiliam Xavier [place] [facility] [place] [facility] , [address] [place] [id number] 0 09/12 CBC w/ auto diff EO # K/uL 0.0 0.6 0.1 FINAL Wiliam Xavier [place] [facility] [place] [facility] , [address] [place] [id number] 0 09/12 CBC w/ auto diff EO % % 0.0 7.0 0.9 FINAL Wiliam Park [place] [facility] [place] [facility] , [address] [place] [id number] 0 09/12 CBC w/ auto diff RBC M/uL 3.9 5.1 4.78 FINAL Wiliam Park [place] [facility] [place] [facility] , [address] [place] [id number] 0 09/12 CBC w/ auto diff MPV fL 9.5 13.4 8.5 Low FINAL Wiliam Park [place] [facility] [place] [facility] , [address] [place] [id number] 0 09/12 CBC w/ auto diff WBC K/uL 3.0 8.9 8.6 FINAL Wiliam Park [place] [facility] [place] [facility] , [address] [place] [id number] 0 09/12 CBC w/ auto diff PLT K/uL 113.0 364.0 289 FINAL Wiliam Park [place] [facility] [place] [facility] , [address] [place] [id number] 0 09/12 CBC w/ auto diff BA % % 0.0 2.0 0.5 FINAL Wiliam Park [place] [facility] [place] [facility] , [address] [place] [id number] 0 09/12 CBC w/ auto diff BA # K/uL 0.0 0.2 0.0 FINAL Wiliam Park [place] [facility] [place] [facility] , [address] [place] [id number] 0 09/12 CBC w/ auto diff HGB g/dL 11.3 15.2 13.7 FINAL Wiliam Park [place] [facility] [place] [facility] , [address] [place] [id number] 0 09/12 CBC w/ auto diff RDW % 11.4 16.1 13.20 FINAL Wiliam Park [place] [facility] [place] [facility] , [address] [place] [id number] 0 09/12 CBC w/ auto diff LY % % 14.0 41.0 22.5 FINAL Wiliam Park [place] [facility] [place] [facility] , [address] [place] [id number] 0 09/12 CBC w/ auto diff LY # K/uL 0.4 3.6 1.9 FINAL Wiliam Xavier [place] [facility] [place] [facility] , [address] [place] [id number] 0 09/12 CBC w/ auto diff MCH pg 26.0 35.0 28.7 FINAL Wiliam Xavier [place] [facility] [place] [facility] , [address] [place] [id number] 0 09/12 CBC w/ auto diff MCHC g/dL 30.0 35.0 32.3 FINAL Wiliam Park [place] [facility] [place] [facility] , [address] [place] [id number] 0 09/12 CBC w/ auto diff NRBC % #/100W BC 0.0 0.2 0.0 FINAL Wiliam Park [place] [facility] [place] [facility] , [address] [place] [id number] 0 09/12 CBC w/ auto diff HCT % 35.0 48.0 42.4 FINAL Wiliam Gaona [facility] , [address] [facility] [id number] 0 09/12 CBC w/ auto diff Scott % % 43.0 74.0 68.1 FINAL Wiliam Park [facility] , [address] [facility] [id number] 0 09/12 CMP Alkal ine phosp hatas e U/L 36.0 125.0 54 FINAL Wiliam Jain * [facility] , [address] [facility] [id number] 0 09/12 CMP ALT/S GPT U/L 0.0 34.0 17 FINAL Wiliam Jain * [facility] , [address] [facility] [id number] 0 09/12 CMP Calci um mg/dL 8.4 10.2 9.2 FINAL Wiliam Jain * [facility] , [address] [facility] [id number] 0 09/12 CMP GFR estim ate ml/min /1.73m ^2 112.0 GFR is calculate d using the CKD-EPI equation. FINAL Wiliam Jain * [facility] , [address] [facility] [id number] 0 09/12 CMP CO2 mmol/L 22.0 30.0 [...] hour stability window. FINAL Wiliam Park * [facility] , [address] [facility] [id number] 0 09/12 CMP Gluco se mg/dL 74.0 100.0 72 Low FINAL Wiliam Park * [facility] , [address] [facility] [id number] 0 09/12 CMP Chlor kristi mmol/L 96.0 107.0 107 FINAL Wiliam Park * [facility] , [address] [facility] [id number] 0 09/12 CMP Total prote in g/dL 6.3 8.2 7.1 FINAL Wiliam Park * [facility] , [address] [facility] [id number] 0 09/12 CMP BUN mg/dL 7.0 17.0 10.0 FINAL Wiliam Park * [facility] , [address] [facility] [id number] 0 09/12 CMP Creat inine mg/dL 0.66 1.25 0.70 FINAL Wiliam Park * [facility] , [address] [facility] [id number] 0 09/12 CMP AST/S GOT U/L 14.0 36.0 27 FINAL Wiliam Park * [facility] , [address] [facility] [id number] 0 09/12 CMP Album in g/dL 3.5 5.0 4.4 FINAL Wiliam Park * [facility] , [address] [facility] [id number] 0 09/12 CMP Bilir ubin, total mg/dL 0.2 1.3 0.3 FINAL Wiliam Park * [facility] , [address] [facility] [id number] 0 09/12 CMP Sodiu m mmol/L 137.0 145.0 140 FINAL Wiliam Park * [facility] , [address] [facility] [id number] 0 09/12 CMP Potas sium mmol/L 3.5 5.1 3.8 FINAL Wiliam Park * [facility] , [address] [id number] 0 09/12 Iron profi le Iron, % satur ation % 20.0 55.0 18 Low FINAL Wiliam Park * [facility] , [address] [id number] 0 09/12 Iron profi le Iron ug/dL 37.0 170.0 63 FINAL Wiliam Park * [facility] , [address] [id number] 0 09/12 Iron profi le TIBC ug/dL 265.0 497.0 353 FINAL Wiliam Park * [facility] , [address] [id number] 0 09/12 Iron profi le Unbou nd iron capac ity ug/dL 75.0 410.0 290 FINAL Wiliam Park * [facility] , [address] [id number] 0 09/12 Eleno tin panel Eleno tin ng/mL 6.24 264.0 10.70 FINAL Wiliam Park * [facility] , [address] [id number] 0 10/09 [facility] other lab See sheepskin pickler d Medications Administered Date Name Route Dose [...] Systolic 110 03/19/2025 Intravascular Diastolic 68 06/18/2025 Intravascular Systolic 116 06/18/2025 Intravascular Diastolic 80 06/18/2025 BSA 1.89 06/18/2025 BMI 28.18 06/18/2025 Height 66.00 06/18/2025 Weight 174.60 06/18/2025 Pain Scale 0.00 06/18/2025 Oxygen Saturation 98.00 06/18/2025 Respiratory Rate 16.00 06/18/2025 Heart Beat 77.00 06/18/2025 Body Temperature 97.50 07/05/2025 Heart Beat 65.00 07/05/2025 Respiratory Rate 16.00 07/05/2025 Oxygen Saturation 99.00 07/05/2025 Intravascular Systolic 107 07/05/2025 Intravascular Diastolic 71 07/05/2025 Body Temperature 97.90 07/05/2025 Height 66.00 07/05/2025 BMI 28.08 07/05/2025 BSA 1.89 07/05/2025 Pain Scale 0.00 07/05/2025 Weight 174.00 09/19/2025 BSA 1.91 09/19/2025 BMI 28.92 09/19/2025 Height 66.00 09/19/2025 Weight 179.20 09/19/2025 Pain Scale 0.00 09/19/2025 Intravascular Systolic 132 09/19/2025 Intravascular Diastolic 76 09/19/2025 Oxygen Saturation 99.00 09/19/2025 Respiratory Rate 16.00 09/19/2025 Heart Beat 75.00 09/19/2025 Body Temperature 98.60 Notes Section * Med Onc Follow-up Note <html><head></head><body><div style=text-align:center><span class=clinicalNoteMacroWysiwyg id=[id number] macroname=&quo t;PracticeLetterhead spantype=macro title=#PracticeLetterhead><img src=data:image/png;base64,jDLAAo5XKkcGRKFETUsVXuPZLFBMVRPWXTLXLYOiIqX6KUYNAJRFW 5OOrv8k4FIXV GAwTZ1LGKLcten1VWOLTDUHhLaZifBYKqHQOX9iDFgbT6GODVnYGCQHOUyr1G3YcJNY5qyDlWtv1ZBuc NnSC9LjWXefW6lvScHAd uQwGdPk6Y6IqnLF6xtEe9UTuirR1PCfPnJJcmgtBJ9J/bT3FmiWy1zmgFW49MoyXjOoI02XS5bD636jj 0Se2WUpe/MvWe0WFoOBk LWxcQGl4dUUVydqfwVylJrJIs4SXSx3sM3PRIJxpfLJM/8rGSqwGsZc2hfOsIm30mgQVY4C/S54ItMeo uISyKlow6g+pr3Kgn2nx vv8CzHs7pmg6yJ2rmZJm3TeqwZTMn6qS9V4XArmZTV72zXo/rLmQ5qBvtZPB12NGJ8EV6LgY7GlcJhqF XSMEsC90mAvFM1lePBb1 k8Kb/n/omJQqfo1XyHAdavyjnUhiZGXd6uQ+qBYOxbGqvz1x139elt6TQ9UATDD7bGWpJK8XI7siTRm7 k+Y6mBvGBty74Wv4/TRN 55TNb73Zi5vGSc7XUvVLfhIFe1d9qbKChxskWEe8v0gLMbz4mODv+y8bOhhfmEERooGjpnKIoL2FcYOd q94zPjfNzFqV4RdgX9H1 arwapfNUgY8nLd+lE+/LDHgwRVT7l7NiFX29k7PE5F+UULTb8yCnRkVFvvaBDNRaEXB8De9aknbKTaAt Jg5yeIOf7wo6/se6uc9R ieFHUR6gDiVHqmhnpxpn+0aUNceXTbWtdKJqbocAbj8M7f+8kef2Dyn3dG2HMke8DTs4yrcDk5L2bweC aWlpRIMIkds/Xx3j3FrX AY4CBkr1eZSmqQCdDXl9DFhIb016Lyq6BNx356/Z8NOcVfx+HaeuHS9fzCFn2j+njofTCRQ4uyyPh3G4 Go7SaX1R+hNc0o1LpYOE 99aKssfVmVoHx5tUGfd0JYu8paxj/Q5XTvXDc+BUhTAdaYQr5JAPpWesSjPjFcVEe7FgkJMMc6EdYa0g OHCRTVBHMIWHgkJiea++ +88BCLn0dr7HtwmlpaXOHURJpBP/X9EB8xtMMZmlMlrNL1SgxuvCq1HQ++g5QihXF28mYHBK6YzeQNih gXSk41nB0781C4t3gGfL 4033dxeiwPD9OvyAo3d9iJRG3rS5yz3rXTSvWh/YX1SMkxOHZoWU3+Us+4spLQDt9dqZOsbntNw5zU/4 0tdeaPrtOP9tY171Ah/M 8JKT3rNfrhbrOR3D8yiRVU9lFXf75zt2Kn/vihKx9qItQr899vH8SdW6hETByARIQKminy2jUYErJa/E B0UofbPJa34lSwnT7iRP GmCywj7jaTCR8iRTFvqq02uMxMtDUUkBZIynQMBvyNUz272sGJa6+3hzwX8hldMrFxn/L7/p+TChQsXL q1EIQXvgiNyvd1qvF4/w nZHPz7lNU1cKjOo+hhOtf7VPhaTKE1a8QsATjXUeD6qtoK/+9+pXpH48WWR3dOap13Ft5sZIJwEssFFA Cgt7nJDO3DmeQexTgCVB XRsdO/ew+Tk5JR/2fGOIz9oWcQaFrAoru2xMbIivO0sr+WXNHPR+XVtpn/uueeazTEEBEKJ+MuYsWPLj 8HBBDr8cqsxcGBDDF3Kv HDhwoWLPwazsSrWrVtXzqKjY+PWkBW2Qfw2+OHlyH0LOVabb24mZAEuzt+3v8vOlkeA/LZCKujXbzxmx RTbHOe7nydYwg390fwec 6/9KknI82Wxa03gtmE7Sp/8cUeAMH/HwTtWCqgTIoQTA0tRcCLTEakLjPdnC/G0vvvX3vPikd+KG0697 v8gsTHaCasgv+7ogJid0 fdgxfDkj3hbNp5Ubt99e+d0nfoRMJnGwm9kH8rObxChvYK48y+t9G6cm0qwht266GrQWldaUJa+/DFZu 94nvQQMItnBwxnhnceE6 ePNSo/skTWQZi1m5E7gDFAkSgvtmPOLHF7UcVvml8+TKs3YJB/618Zgr8AyUd2kIwihaF0KOPGyvwkoD 6ZH44vm3ayKASeKYBNzN Sl8uyXcaPjR6cO4K9gIeyM4H6+BlFf7WhiyxbmOKC8OtoXtAndLZlfPhsPOlBTWZNRLae56rdSSA+WAA w+XlEaoxs0h/b7p2yDLO roCxIULFy7+FTv53YLALUmzZXJ8+BDkmXnLbKlchywzDxGaJDi3bkuKCoj3/qKw04dnfdoXY55VcE0yw aysLDNt+oydrq+Mikp95 idbzqFvg9SNUztCULbr3ayKauMp19z42IHo87lyMbDq8fznxiUjs/EvOrP4N76/foCVx3A9TC/gwoULF y7+NGzyk420T4yIYn459 WufolcnDeOg25fR4OIYLXmI6n+A+TRxB4IlFIJowIuW1CkU/M5lwwq46kBy8aN9/FmSjrzRpAYVHN4h2 UQdYTRt06W93af1t6rqF SaEsJVaUCvp7M8PxeKRWqHRfIPH06XWtVxlsfVrSuoLwIlzJYMWXltDHtpjCWbBdYTz+oUX/3MLDyTd9 EKAA9j1+Zhl01qxMNOFg FvmrUa7qyzHSCcmeBd9KRmzUGwRcEb+qzhnd+mJEc/aGVqX/kDW9lE1eE8Y1bG6XIfO8rs5QXBm1aV7u cy6V9FQe2tYmjjwM4KlX gGNGTzvBLy7DYrCID4HScA8H0cpLPzSVgpTw/WdlA4u/4i9NhbRlWHql1MRO5ae63hDw62RAInEzDPI/ AKvqFh79VeZFsHc323ko sm8uVXdvutv3o3BLt8urTtZRfO/KV0vqwTVbMkJ1rgP1VU70k9WiIJpdNTp9/0QnRoqB3lAwt0tE+xy3 zaYs1qRACVIr8RHZAtj6 VVQsA4fWGruE9uypwM+VvXUwunuzfXXfcF76ue5ztZRrp8s6TDUT+6fSqxoTT+cfIDqRxkAAoP9TfCF1 K8vavJrjlfmzW3OZwayi X7EVJFie/fNV8ucTi8qzW7VN4cqLNSIFSsTp78Ldm14L/L4RySQrswnQ7Eaq6cACmFg6AaNlp9I0ZhiH xvLo+r6NQQsfHtmg/ULl OsmX05vMQGxo8NV3gl/vi5x2FHrHk+wcQKzKDMmPnFlbQWXEEJkU256F7ILcJq9tUjgCPjkVDAjU65/1 Zz2r/1hVapRYt6+sdlS7 N+BBk2Oi6zM1sl9rCcYiph9ra6R9dObkhlm+997Rq3mKqHdtHb6L2XHkt58m30k0W7enL7IwJ8QorsZs dhBBmKlf0Zv8k3WDMtz6 V0KjJNphB2BrQuvymTEU6Wwi55q1SiyBPIRpfYjBpnoqyUEDjuFs28Fb2Sn8zgHzimyh+JVnewH5nxrW 2tW/xcZIl8TdAyvJG0XB C16lzXtagh5bmih/34lyqquLsmxyWu2u79pfB2UG3Hxl++jnvfKC+EwNcIE4hhZN+Amelia++K7EelFJsXk NsTYvc1hJEUPvVA8Zf3u mQeHn1oNztmdjbF4xbMM/7fhYvaAvEM+wpTEwyYNCf0e5jDnOty7WIoF69pBCxmswb/OLrK7wuecxMd3 YNlM2sRTe4ATSLu2eas0 zZe4r9i1yhn1W/n6BB7ZIUs7eSroBsD/cgbiu7XPzRCGsc1GUiRkMKOZXGGnVlt966+35Nrl8e28DSpx g8NRiqIllrK0kdXtL2WO vSxPDYTW5vETbO6hFwgiLUP2hbqjaHSMGmqLnm0982COtx10jSAP98/upS4KBDHSZ2L+iiHKrnbJriw4 TBVdvM7+6tTW5a6Ha9DW RoTeMaEUTo8m7Fuo91Jd5Kw3GDBvpgxs/mnOi9cmq5J+1z+b/h2dcGdZ9vP9256BQie1FpipM7IQNYLk 6e61dl1hA8ItFINS5HY/ /cErICW7+2ud9xiTD/kpOLtv9ssVyM41j8TGVfIAuyxyYN4klSPYvvys3y/sw2ws+dmK6ZHXi+jAt8zq hScCoyHQnyD9O1KVz/py z7mD2ERAIXQd6qf/Y071XEBNyn3IaJpBedjhN4vD948Qcr7IelhCssSWp7/r+EJnqidoce3uAChfLG7H KYeSvjuOW+OEuWijrYoV Ipvsv4HwgWtQqxAtbrNHgHvQr4NrfzXnFJ/WJ1PZPdWVLXksdZKoV7x+ygurBXH+7TYJOi2ClZFptCor 8qDB9nH8YMSl7WfVQiIh k/pHHL788VIoulGXM7N1gCrSlJjDSLkDp3M7rmNmX4HmJKan3PD/ZK+h3mzPnK8BkfbHf28a2did8J0G lMYVi3f4/CacGHrB27/K JJfuH1q/j4O8yh6pjyAbeJ77u5IzmUpEWqd7Dj5LmkJJ1Ps1Mc0Z1Cf6MFG+L0BQMxus26mulDyr8ExK qXXv2/OmBH4XX9wSSN/G /HY/+reUm2ruPg8UZbugncjF8pgK7HEl/pNZSweEGo3RGRfzg7If+601l1JBMyyQ5J/Vn20vcJa0AdfK JlYCUly+pFeBfg1T6fuj WlPmSCZVf7hLHJOz9sRBKE4sZyJnQZwFXAJSFgsWkDBREP8XKoXtNcxFCMDCr1GgoG7CmolrmAWvgssq RSSyCEgjJiQSafjXgRcs ALeHUEbuoUTy6mkCx0sQoZ/jbH5RsfZewvXGBjQ/O+y8AuM3Gx6ZFUJlyydvxfxwmwbopMkpCz5Lb4Gj te1OlZTj5s73Kvi4sfhS NRVM5QNboVQxquiHDObrD7BUdpZr8Dbopqt/T4g9MjmQ3AXIJvPcTnZDcTdzkWSEweWqVy3AQ7jVYL5A SW3rxw3+Ju/HFR3MjNru J6XntCVENfYEBE0Vutlbksg0091G7EtXKfdu+F+y64ixGGGKcFeXPUA7mhtKt0SiUQofHwWCEutBhrBa 8r2xNGVZsY0urBbTibWY JPswCHAXbm87V/5dhjMG9thjfnx7UuXzYMIHDGUHHOiP29WvsiuGFucVPohLJlpghctKB5RM+MdZQHFM Ptgfo1o1x18N+nz2rsu8 stooeAwaZ7RY663pt3SVK6kr9qlM02e0thH7dJ6HrdALLdTqU+aX/GL6sfrm9IrdvXIbmexTG1nhMfF8 39o7rr/YZOUnGwe/mCRG bV8/D990rSS4gFzgSNuwyCZmPc5UYsMj6pManOfFEZAlQorIW2ppG6nRSzgPvGLhszaAHV51FXTzRo6u k0MVUDQyprvS/oYFYcrO ckCCCbeIxY+XHGtogEORepKzVSYtVNhPVGhScd7PgwbPEK3RSClP6NXFNYo9w3fLa3GgfCKgtqFw0SgN QDOOdZIXQtB7QqNsOW9Z MbMaWCNVpGD84ZZ8Lh+z54DoU+07EyrcwKnUL9WhHeLp86VOVjSos4zqxtfoswK1YBmSjA9DuIBm1Ghg 7UfSsWvSgiiWOiutFkJJ WPWLmtYUDXMNFYcBh8IguCzy5HgWUjRLpBpOGGkRy61CTWwLJEU7+D2ph/QL2huRx4kFXphvHvrEu2om 1hZNUmgbgf10NYUE3uD2 qiKSWWy0m/is8Gh8SFMlyg+t36n9v1qB/e5RF4Y/Hgoi5m8LQpyKvUHhRp2SsFxTdJT2RBr+VLlxmvy5 HlkrpBlqwcV6Dhsq+PO6 k2SpSrL32xcoKkLu8Ge7GYvXDT5oskYtEHQT18ksnKO0rdLgsUpZu/xZDK3SJfmygmPSOYSt7ISq0vYI aKMBdoYE20XORUpMkEL4 iOagvrNKID484IubyV2WbedPaO+bEyWYqx04bTWc3vvZknc1UT2zjOis38LBTA9plgSNxJnBa6e+f9wO QeIeG4SFVvwvNED8Y2U3 nrBClsuOxOsiOb3zb2L3L0Z3ijQY4GXlagDENmSs3LQsG6k/BIR40rd4poXHWwRWhqu+U4P7jbSaeS0I hS8RHSPLwnnDgS2H1dxa kuJCuZeCNKGJklwzRL3sCBDDmJ/oXGtAoF8AyHyWuwTNb3gzpt+tAcdnpf7MD+qPIjuYsMbOW4F7R3yU GBQ+y6DLJ4pGYuWujodN eU9XvTczTSrAHUcgCcL568fLa/7Lts2yfk52q22urt0sJdMChWZHrAQHoygQuB8GjwFnWms/auHVdq0M Pqt6TBzOnkHtKFUrUORH mQvHDmEigVYFjalQGH2B4HguW3nTRb+EO6Q76qRXDN3NxMDtU7S+LMvqEhBfnMYNRGyRIk8JZzM+2Bdx NFvEOAgVS0SsqO2LkMLm B5kzjvMpbZSipbsR1BBivXcyma/tRhXufFEsoEB29oMNr3hH4TtZ6mXZFTNYVRPAgVSawvAoHQalILzy jLltMMaSLzDR08UB4BMS EYIzkdHqT0nVFA/pXj9/pPdoGGGeSsNvvNuOxB7GNiGOqo3lZBFvdF38/G1gGQnhE5CN5TZa2MKDoD+a Pjk1LmroDyosNKJtvirt mgMDgIDMclJQBRZoefwQxlVS3fNZwiST4nUxTp9FgOGIYlC8oHfx6E2xeAbu493VEwDmpo9P7apmjV7n 8JH/sw1HYhVAuNqbE12Q 6GxkxWiV/fP9OtXfSh8GZY9Os8jBX7WHtLzNeOXBdX/3I3L0LfGKE8ZVPCBBAzMJf4mKCGdGyrcE4xWR iMP8ciPK4JzLVzMZNZ4H qXOARSqkvSffsWmWsTOsAu2OB5O0ayxePxcIQ8QVtHcCzvD7sZtfNfhjKw/lBAeWIjcF+PPn1CvglrGP 2byuInOsEqm8H1EJ7uUY nnpICqyYY1XBUt7+oNbkKu4WzzTJ7fF9gaXYpbM0unPv8PyuPeig+3XgooicuVzDuHA6AtLhL1w76Buh CA7RKSbDNCcdliLqOCnI e9wLHv+97sECSVNEhxF3WqumPc/GnUSW6WEGqbK7KKUzePlF4BuY3YEXjLc5DkQFIgsdFEOJtN9S2kSG EVFKTLgmjJpfUBHSc+uI +2Mw43Qzv6sUvzBXmrpY4BsWAocalAA9hSiy0vUgvuoDY/vVmX6IUB9xmOSjHyY3xvEpWdnO6+WhymIc BysCOUiKj0vXFmzqd1HP 2rtdPfFeCAHU8sPMPQMorRJ5zK4tS/SlHzIL3HoWZDW9w9qBP04OpBObQnT0LhzGvgQ4SCdAL6bVfgkK AMJdw/RFpVZwYBzcD/h3 tXxL1axsn6zy6S5VwhCHrv/yH5moqMP6pzXWcu1yuAZTezmcmYcb0Z44h2DHRrPXiaO8PPaHgwxU4OUC JdWtKAqUwLX8jkbnKgh6 VjMtlsTN1uZDHCW3CmtF02z2KqEobXuYPWB0vCltLRUaHpV8MqSTZxNtbvlZDehv8U8/GodaMvsBSotK SMz8C2mnIwZhFnBN84UB TiFvnekP8xFbQIxMzmljbw5VRHxpl0nVaX7te3hLeuHsjrI7osMcVwUcK9QZZ6Q4rIvOdpQEVm5YrTEZ yUPxUZOTOSVUjcX2ltmA nKWgwzsA4fRIX2QJuJT+2HPf0bT0BhyQQlR9TTV6C47YmzUstumqwpghNlDrIFtkIaBBbEhYnhDboPL0 KM+agpYQOGMHp/77gA/c Hn50C8WXecV8Ew0XbdC1Exep3YPKNxkK+nJglqvZOh1dNzb9dYJrSRs6Qt/dv4rjK4yaKJT9LoJmOANS VeyeqO7oJ+DY46vYvVkb KhsgtywhGbUYZJI7XtNI1yIibnI3wb0Nf0LnTblZzmb8Y8iI2rV0lPeoToXjrj9slxsmKGk075t/Zsy9 +prx0lvqnPRFl516cbRv 8ZHkSDrp077jSrIE2v/TzOZ/mtp4gZp+rD8TgAu98Zu5hV8yHdtA6Sb2+0O3titeJ3Ry6Ypr9oVsB95k vyrAgYNLhkGMJYRAzgaw 45PGZBK8/h/epZVORtNzkmhSEKYYdNTMQRaIpTLIPA6kNlBaaGsTEN3iOC44cMrK9YpcvAzEYgfFhKuR tRTXPXYJbLiYS33MEel6 M1DPbDgqkwLsChmrIes5BR2j77Aln3YdmODFR+wiMP899qwtJ4Bes8bq+a2lX34OmxiAE3481VqBVzGw eZUhim8z0XADamjDSk7C qngc7NKbAwl17wNwLaO3GwwFS8EhIHHl1xYe/Pd2zeGXv/kD2Cg9yqFgd4Q9nRZontL5ngIZLf3MOfZd Jb8/MN4zEqZfhaRkc8jE hOTpMfA6+RiejVm13iP4pWB5fMJlt8bH89oK7oC2BKF2N1qEja5xAEfmnPXG1JkNL07nFyRLKbbcZi1j 6P0m1HONFgngQT7WseoG vNG2232QeRRqEJnX2xBSC3oxEDnbeFamYf2I8eHuKetun1B64PMPZFiTv6GWVxHaQ6MNqXwhcnTumUGp pw8ikqLnABln65LRopTX LXqAneGA+j71ZlsVgtXdJqUyGgywtm+sCehg2XaBeQJY92K/IiZqrwTFqxR4cOfEoIJfPMA0SZ42OHMv UFCIBcahC5psCURLIdEk VGL3UPMMMKmtdKRJLaEud867VWaCGLXBOIpo/7+ZFk+yFWBBu7oYPQWP1+UQ04+Z9clbVkgeZigxgO5k U/YLqwVSxfbgfTwgHttU Q25ruFh3Xbt5TEVfPh9/7qQw2S2mCa91rsRzNq84lnwYwHPxxw65j78q1f0SnFMhhJCzIdoUjPxkF3Rr AclUHdRKhHfW8AEIBAyI TnUcedRUwNPSxyuGSOoDtdTVsFjesUTM3AeLR6KYUromXMWQbu5pl2h8XzLVzJ1pgTmtJJYLH7ptyLVi IlDZnXDznfksIvcv4lua hbDHDZxAdGykdiLkZfBLq31E5N40l2rFeRxsWi0TPgEh6CPMofXyZwsErooGT1Tgli+LtqzZjFw7h61V N16zBM3MtNC5SXsjHZX7 ey9ORiyDwPBSqIkM9LqOBKfnJTAniJI6KES8ydRQWur0bQXKj1iHFlh35fbNrh6V5xugvE6OsWOHyHBF snfskkOO/6zYmnegIZZ6 NuE0z6fkAkhhObcuEAiL5szkefMUbW3LUpZvpjnUYzxpuPrYJvoOhCmTZKEEDCVJ+Xg08+VIZFcW9AFP j6fX2Y/do98/PEb3gEZG VR3jQxpY1l4E8enV5xChI4+M5VbJraXHKEOVj96CGDKb8BjeQ3LOpdzfD1PknYQtN5tkCVvF9vdKes63 LEC+JddydEYt58adq00G O38FKwjYtQupkL2xLKjE6nmniyB2JC2B6gPhxNDYYhowq7hJUUYYLyI7Y5OSWtuBUHu3dNlrTKiBOLqp tF8qCqUl+KigTH0nTbJi quL8SXKZflUQDTb2UjTROAzUJoACZLzpCZdcp5Qvb/MlvJJpVIh2WUFA6M8YYVF2lPU0PJneBVBi3C2B BOWH6rascELSG2teNzlM z8Rtkgw8lu2i3d1t5brj5dQva1Cct+kXz9ja5IJwv8HEa7Jm2QmzRus1oqCGXvDx6M/Ar0H94Ws7j9C2 majK1rReViADiaa6jsoW HMahD3LzyK/t6wzzwnh7o34dUs5oB3fuEQVrpgfYxUJoowQOVvUGRKQ7zM4BHsdVqa6wRgRofRRlkE4a SYvI3FxC78Xg0DTh4kMV RenIyTZhBn5mZc8EnLK4JWiU3YSgJChtk2orEpPqFAPka9OudLiRCvGNELrjEIUSNkI7cb4KVJX6sJbe qvNxJsmgHboj9rz6gN93 Fh5+miRjtsAJr+1IPZKaQcOMXavE5JRZPc8PzJ8ZE7YB2iFO5snVaeksYneQpNaslMhXeDMq5Up1ixoY OCmEWwnf3YDPGKIGZFnQ anec3xllOB+ZJ3uRX9z8UfhbV4Nr/frNUZLjqzSMOofdPM46li4zWTQqoK9JbEQd5kKL3WfjzGIdaCuT IMAO6JWG9nToLxuQHThd 6HwT7xwYbzz7636/0Vy6kP5v3KL3F0pMAnCAffOcJGw1Db3CH1ZKa4mseGS/pfIss8/UaavVkMNUSAYk RE13G7HSfpgI/qGeHVSk 5juzbaMqcTF3auGvN3L/u/O62TF/I/oMPhX+zh4on1JgaG1HGxVcSN7ugOIbnPIoDlkAUOAfAS4+fEGh oTVC8QKjhxpeg9EJ8M7x WWQcDgGahXNICbN2lv2GWwalVekRZq6bmaNiE4LQtScEDPHDgK9M8VhcQcgHEKHNHxaW18CDprCZQ6C2 yposu9dU/zpAuIURd4Uu QM4jDitX5e2XAdsXu3YrQ8VUU9Cr+MwZzP0jRFLRAMqnMZNyBGgwT+paXLi6y5+BYGx8sicuUgoc4mf6 wcMCTH9KoYleWPCv7SHR Fd4uzvT0MYx/JGxQxXJpY7We7L3f0PcVI5WucNBd4fCGg5CXxsh/p553iSydRCQwY5J8b/xQ/wCmHG6c 8oB96S/0m5eXIF4NyK6E nihawI74DDoZJ1IqctONBhbkXN1MQR6kJlDggzEMTG0FblxtdqDN5rHajOYd6DxuNAh3KWREnvtYa4u/ dCNgPfXnZznxxGb48L7H N9ygnOdTtzpUbLM/9z9Q+FK815Xe+9tIB3a+bSo97hs3IlQyM6l1o3mGqeB3mYwWHc08B5rQnJdUkIZ9 KtulkhVQCobbhvHDGYQ0 mhIt/HiDbb2jnIKDAEhBc3FEZPPIuQWMSWFzKoctsDJKSlHIcDsPBOiBHmsRmxTsaAjvBZJMVXhpu0VD O1D75onFmOwIcEevF3Gl AYKI0OaiJKUhWgCajM8Vl0EmjfpqrRQFy7feK3JC0ssRX9GlAW2C8kAcgHOjGDqAcpiuEgmh+PJ52SLV FeUWdAnOmKAs93EmK0HF CDXA3sAFU/cjcB6EA8D5s05nCVUFwZexiJFQhYuLOtaHb9Yn3EOAek0M/NZF2D9ev0I6hYs4qUJfBUxO SANOQoULaNNDkohuRJ3N +1A0VYjKujBJIwpxaIAps3mgTDoKtvpawS3k9sic4Z+VE7P8cGIek8ZqtXzTwJRgnjvL1QwaLOWx8N3N r7Xs7GayOutGkbS49knD xc013usDH+n55APk5RREIzkX+ASZ3Pd57dZLigNojONOP0NgzZ8Xz+J6aprKIb5JjxatfZOZ0Q2Wv9A/ 0bkhJvkw6sIeun9fSQH2 jWMLCgbeJZpMy3BAySc4Gx3Ll1U81W9jfD4EB+jXYkrOkKO+2BusBMeSoCI7TiwfY3qClZCg/Ap2pS+w F6OsypbCAE7R6O7UjPl3 0ddcrkse/g3Jyozhm2UQ8aWO7KEAc5jWdwFJe3RIhP8tQCCH+7npLdpCo5rMpEsUHEbcyCGBdJCRyphn 1HhMeqBe+TVkU/J0Dsay Z23rJf/DKonr7+fLSe+DDSqEmNjzRHub6hMoY/L5l9/joAvA0yn0m75sRPiRUfYb6C5KfnjMxzRyqpPy rQcvzPzRsUCOsJ7LAQWh 4m9mvUTmbzGfisLpoMDRAWwZUu6auXsY6WqJXwowKeoH42EYuPQdM14Uj1kGlEzcm9KsDddSA2kcXCNw 4b4PUSueVdHaAA/g8LR0 faFnZKWEIc1118lBfd3TJWlh811CPoaOeHzTQmRgVxFYeMDNeEcSSAEdwYkCCwg3RNAHjMWOJtqVYH9o foYBVHysw9j1Jv7uGOJC rHagM2uAsEfQA34el+5H3h8hIDiFXUE8AXtjWlp+x23bC7Me13wAcRac84NEz0ErFWhB/SPSn3M5IUi2 HYaAXJAsHowtkiG2CU6J nqS5NzC0g97wwrD+pd1UtHf7VkKAN0D53J/pUM7VALnBxLPZQh0Urcz5TvwO8mjcxWeng4y2ryol/NO9 miarmXCnXKyRvvzgr7U7 5Pfpk+Kay1RxMEtJXjPtEVCx/cf4aZlbcUaosJn42KwdhIZ+OTMzHu1t6vRI5qFli3wZdLEPOSkclo/P jkPaTHjyhwl0MXx6zJou jbYHTEtuRJ5dK/6M0vk01zWnp2iA/zNooKpdooj8m7SzxBeqFRj9Abn8i5RlxowFSBCJk7epCLglcUNN 4B8tE+2Mo3AUt8OYc8hd PTXH+R6oOSo3EobOQvy/gG/X/UkekcbmrsAE9Qw6O/zxAybGpJxgO3HbukpAlo9K0PLcTkF+G4AkWOux 1zhqcvQ74Idjn0HQe5fM N0dMmWBb1bRlUfpxn3YVm7B+p83CiKac6wf6y2YPUpkFkGjo+T9y+xVC/B5x/ChgeIkuwZGHDG7ll7s2 X7/6HDoqJAAUdnBX/uzD I1cpPCur04IlhyyWovego7Ho4thgtAN9gpXflCdHL4gnCY01yL7wqBbDVGGJnkI1dw8r5gd4rdmTnNjY IE1Gsbxd4a94o4fX+SXH 1jj76s0rj3aHPGbB6CvZcX3/w2bwrfNBxfCmaaDSSAR9gbcE/wh943Iin/gIWNwkIBszmIwJZ7XKT2me W4DmFGPLAEQelbmAvfj0 uWO7uhyHAQz0h7X4U6h5b9uCZ/lCvGt/VXyV6+AyCJcc8AwZ00rTAZ1GfIZmIq+GCZGBYVPioqSpbikV SUqNZL3o/DD6ZACPPLIQ 1no95OmjoVy8/XRsvqd1+RqN0LZeJi8rsaaKXHKNQwbIIkrc3Z2LzYLIyequinMQ2MJvhQtbYM4cT4kG WoJFJZT+Ifj6U5vQMaWm eJbmhcxvwkoz5XwJO4VwFQRhod1ev0CBy25XwWo7AZ4XDmmj5DM4f6UqX1/huj5v7Qy2k99GF7bBs1Z5 ZCez81sADicOe9pZ0wxX 9bSr2OPGvimvAx7XbYJN6q0D02qKqD/qwTJ/75iyZ+etkmy7eIUFhmaCB+ALCe+kTd/ko8OHosaZCJc5 6QIgTKsLxTk6zbYIGyuf 2R8AYIhHDx1bqZzZRecXqOcfS0SHo5BP05/KD+mVkMIa0qYbJ7kdCOM5LkN+0ZJXkYd+5s8k4WhYNVjO ZP360+K7ETcTPlskAJoD 4n/6qGTo1f72lvAC+MkWsqgCxcuXLioQcRzYTHJZwq7+dUd+bz9giAimdGIQb3vk+67IUy2Q8k6PK4Y9 csk9vugJEKHDCNC2lOwX XfLNAP5zERUPo2gtvNQbHZE7pAY82230JzT/x5rhn5kVmjL8dhPHdk68ZHB2gh+l/TBO1btfjWcFepUZ 8ljahMAJ1ZSwUTKRqk7O a5xL1IZRgwgzlOfNqK+O9SwpP6KLBO54Vsnx6wU73euBGxd2AlA+Xh8s0T17WWg+iGiMnMLSuZ8lfC31 8B5GccV24FIXTALOUJBW 5lokkfS3xKt3eNDWqjp+7+RYEG+SOc3BZNFsHgo4ffDNu9lnEvcpIRI5jAzPKsjiKN49QFvx6Ar+e0Oq qvoN0hgSa09XiMZCoCxy 8vIFjb0HSxEvHlRjIryGmidhqMpdjod2+7KLs6VObRc3BIR0nJNXUd3ERqvATaRA1IGujtLyld0YJZFK zoitOJPto4QxeOCgVEcH rGxeIrzCcBrS01Uau/ykYMQTWFBzHNbJUvx3aNHls8OSBPWVCrJTiOj7JiS4bMjPnK55wpDBLgXl0SVb 5iE198KTP2gXQy8C2ztq h2IqQiCbRqFW5mXa5rFw2zFza9D7IJ7PhcDcywYfogH5MirQjkAmaNQKXV/W28ppBjbRJmoAqRcrqz9d Tl3JORYql3c86rt8HlJO Fd3vEcrtzoMH9BzRtsxfRnVxtkDEeu9rOIBBTZoy8fuExn3Bq2pRP4XQvhDEG68cs5oA/Nxh9GFy2sWG U55A7Qs/8yH41ORpr6gi DTrCIe4whu8nrjH6uj91NDpK38v6BzHtk9fYA3TQK77eiHdRM18vVotk4NX824yJXt4KvezUA+j1k/Bd kn5+NnvpAxhsMhb75pqS Fh+bMFz9E6qMPfY5cqWr5uqynH6WgzvrMyEyGPin3BJ/fvS3kJwQ3l/P/hJ9FfurSZ4AHR5abK5yf1a5 RxjcEq05Puiqg17DSEZA 1nEBdvp3lQskFUgI7h6Rxg9Q0KcpgK4YAm/YzLKkPHwKPeFt878qKrcV+uFjc9NXAXTYNcvOFlMyh0hi lCKs6mEscYOf+WwVEBkb gjs6auohtz6PE/RtjusBLVqnNnsQb/kqyOVKmYjWjrrXxOmW97olFA6UJRV3dpfR6dXO8mUQE+W5j7am 43Vu9lTGazCs7pa+Rpm4 +c/pBvYa2u48d/L4xXu63KxOLUzX25UY4T0Fg+I8B9F42F9mMbNjpdPso5io6flLwFbIPYtVr+YKgVlR 1srbwAlIrAAfsX9I5F3H Uu31KekTuhfnluBJll0T/D7X/VFyl0mBAeBD5szvTrY5o4kSqo+uUZMPMdvDqbfZ4VH4yoyIX2TMi7e+ 32+O/KInxj6oiLFdQ5FX UoRWvmUy6Y0GhOwD1i0MNwOATusxdRAfjqC3kfLn8Xv31EWj3RmPFEEzaCWTtqwgmC4HDmHn8/tIwlFD 5Yf+WAkO3BXKpxbeXEkX x1j9d9aK+dt1v+7v+ct1wFh0+sJbd7KTY232fsdkPHPeelNFLJgqKd6/H20/ljh9m+Pdjfe8CActf7uS iV3Sb/jcck/CJlSNWCB1 F7edTp4MvoCgnTUVZbDTlJx1g2VImPt988F36eldTn0SjYgnogl9sBm8TvMHPJ8VCyeFpuQGMTJPLcu2 lYbY+c+r+/dX4VkN+l7H Etp//MALBQbN1jqD16jterM77uNN8mMnav/BKoJd6y67IjhFhO9O5KUCl/pde+MMn36V9wta1OUJIb1/ iwhJXWfjOuHyfajesSMf uzS3ISQ0uHZJA+qvVkba/ptJ1Pp7oE3M8XKuNxK3R1JZIhL0Cul07D7I1CwCOh7QdDoFnUX4/nuiVX2S Lv9pfnIueMHkNGRfaFhl rfMqHBE2atgaj74NGhOD/khv7z6Cka8s75FmyJODK3o0ZgvAo4kovX/w27rRIX3Q4wwrBEo79AXva7HK dluWaTyw0kJ5uSSueWJn f9K2bP3551BJrxSzne457g/rlXdqlfLPqeplFnXatnYx+OSgaIGZIxLdXbmbIFutAZKm59TK6Ma++nxJ ko/VLqpI8dIo+xr/d6zx Et5DTAvDT1iAci23Mm30t1Y0nVL7pwZt+QvRvmghlunKF6l5KV1hPw2rMAtMyfUeS6YIKqDe87WdQ4i3 eopd7IZ+Hh/CZSpVmex2 Yk5DsiBqP4jSCSRo2L5sdDP2kb2OHU0KSIhfpo/6na9hfJhsduKC84soO3kEeRVO2g/6/Z0z6MxRygQ6 lw5uymaNq25mwdl+rL06 lwqHaKGWTWwZ3d0a+w5jaYqofVuzd19D3gxq17p+1jb6/tXGzaODXJtMizIfSNFaixVU7ZsG2IeHvLHc ZqBlZa82d8I86IjJplrM Q2ngn1CePdJPA8fM3qB1QGSG+hfrtBix1O8eDZWmTa80RMekW+fx7SEX3pK4pTF4fo/R33bl888lcaMZ x09Boyle3757NxJLfs/O IITgMTudCNVww2Z6t00nzwDhDiqdwHOrWk7EyeFeEcWOpWS5d6xyKpLwj7CJKUaM7ZXNn3vbOVo3QpLu qQEKJq9IZiq+vp0111s8 WmMLJ2mRHdLBRKuGs3Zs3vWg50OjI/+9h/rv13a8q1ii/wRZRxsLHSuDuq+EgyGXAvj5/wRWcY3JiT7C yEJtD94ivIuv84pNSnEP uKasTcF4P+vDGOc/kEMpKLcNocIcRFlGuQ6IX/bD89l6n6Conu7kZxdi/qtHwzCRj0nqVNBFoqjDr3sn ZJY/H820/J7B+z6SoTQJ XfOkl41key5txgUoKanPxY7m2HaDuvmXxTqP+r0f3QnYX7B7uPoyjAM8s6Fq03iazef7ovcEGDI2unVj tFZX+jhusojGuZzu1r30 TWw0FZzzp+4R5KKo+3w+Gbp1ngkq8PKiw5O/a9j1/DOfntjzhudYI8h3jiLMihPXXWitelTsoyUCe6B7 UjXKFN/UJ9/uSSZMTJ+T lfxeIi/4iIy7PCyVMapcZrEnb4qEi0wJw0KUTEu9xmujLUFDxbUfdPknhFgNeaP1lWsj/H5tWmPr5BJM sEQId1tmjuxhVdg6L6MH OD7zuIdOeevFpKWElDyQzFAmX6yp/teJGPd+6h2zC2ebelwmp0g8Q+w6DU0XUJKfFjnwLXkYa2srRB50 TxMbBlcSI58ADouLFK+/ ykNL9fzxJ51gfKMjHCJLdFptr0NHdFn6LjZmR5NYvAs4C/TfjWS2cm7K6Ez4kSF7BM2C3pRiSTQgrrUZ ppaBPNkeW+HptH2sJ9yp 29Zp+lF/sGcR1OLYOZUioGNb8jt+xkkkMhRMDhrZ1mnXDGb/jEoGZWwyiRRPOKMngcN5X7sixQGSrdgP BiFhJmlVkS/phaeWUW49 KKxpKmWoY+AfBxonFtRrVKjl2ah3OEUCffEe1rB8fDW0VWswmRRXUlJm4xcAdAijUE0KD9Nkm0ucUGBg tyMb9D2MhfpNg6hCYSIU MhruYBUTlWlSq8ggR2IN5gmNtQqPQu2pM+DWMu4shAFcatM1PejJaJN7NEU173dNxs/fwuGA1vOs1jBI beGjIA0nP6YzLPNa/Sac 6UtsKxRW9quPvOGlig8q1QwLdTk6UbmGwiyKratVryr0QWS8Pq9UF/mAkrOK5X2XRSpMeaofIBp1187H w45R14QGggxe1u1dPUvl w7mnC46O8Xmrwjofj0wCPzZ0j62rd/glDmYqiv40gU9kQdzJ2ACEfBcdJ/zb3p58G5aPHe24ZuZ9Vby7 zXa8dz96tluJQnhHxWoM ESssaL9bIlg/bj/aH+xs33+rqhNAQK+WgTYGa3VETy82p07O6gH8vWhBFE3eBe+RXZstJNusFhYRpetF j6c9PsGmPeZABH5WyWHo gORbZlbevM7s63PPUBSeEhpBq8gV35k3DNrxyqdxQE85qIx0+9GaO0j96uSwBfLWWPNzYGciMLYlKszw Kk6lfPkCczQ1SP1PMKR8 lWN8sJnxu05nyl3X8Er4iv04O3u45OK7K47BN2Rf3YW52olo3kHQahdwj+WIV3K1KO5NQCCp3H53SQUZ RuTkjYIzJzYfD0nWd76y oukzE+4miCaKQXyJEUM7gFA8SiqM+RgKQgrMl0E4PXXwOptgbIxjtniPs71c8e6Q6Zy79e9HdFkEG52O nT0bJGbIBmdJpPIjMsWo PmPFkhDmgBPOsFWd76+WvjoCdpZBlZ9pyFowGoTxFjBnzcOFfbZxnpt+g2m54Q99LGEdsUlihwaLYjpv slNxxbr+88klFpW1YGar W/KlyaxDMpt3wF4geviJhaTM0hnZB1bI/Oxfj5D+7NtadrL5zxwCyQqW+wPuQGldkjlfKluXiIO7mN8t vJre2po70EsY10ECFVxk DwBjr49QHZ8zcIwbWEL5xU81iv3/IWc3yTTrGkj/EuitgUIYFY4+sbqbEgOB85K8hRNe3xy8Y+sHd/ep 7sSEsSrqIZnVgG8NqjVw BSjxESRBfinkpYgNrMf5zm1CHi57F+ZssCrk14Nb1NdC28wg5KWxd2mKAdHQYzZCa3TcaadVx8AnuDqu Hi015+rz/JLgiekPZrAd RcTqCBVYCyvsW7qOt6/uXgTsCKqBo+CvTXAPQgYj8SVtpRQryv7+6FaNTkWxoLJwfgXlXOwmVNUhH73v uvrV0Dsy8qKTSwFeMMxD ccpdtkTStnyFXQUKxhyq/dKo1YnCtpKw/Wvq5fI501xPi4RBwkgNiYhIfgtn6J51brYEME2wsMbOSEeY QG1+iyzQVYfs+uqDiM/V mHxWXwQ9PQFyWTOPd84i62kuTuRmyCfsAVCt6XtmH0dRu7Gue88bvoCwKzXKGMx78f1gRAsdg4UmiOYO WE7xsISiqS9fsYiipkMO OEIUKsUEUc086phHWYSAXG3+9Ynps3gBKcXQVLqjprb7T9k32pioTqgxneqdg7NXNjJTqVZRmSoLxTtJ c4E8Cs7uoH5u3dLKaywF IGNLMxxPEtkNz1FRH8mkVKD88itBNha1+wyd6N1m7TPioRgb9P4wMl+dVCekvKE8yfWI/9o0m36cAL0B c5+0bJer992do0YEE1Bp zY3fHlp/rSFsu+Cw/Uzc0/mii+dn5uRvc2CXdyXJsv6Uq6m4S4OTJJirYLwwQjm/GbcWpvr3yLkDONYC K79CeKkV8GIl/3cRJnRC inI21/LfqJ+LrR/M+Vp536/Jlvt8gCVkmwnJXzcoJs0swJjcp+F0Vckqu7wuR9lbkAD29ta6qGCFnqNW e3/Fjp1ipnXCR60wcyu0 hAE5qIXIDptQdeU+VEKHtwLZzFlmkcYCJhLNcKmcys5FP7HnP8NiF8q5I9D6lc9cnNeRKuwwACJLya+k HFz77Y/M3DB5Uy1xAbO8 6KD5fwb1B9VcpWPEA+X2k7Zu8/kUQsC9xgsMtI85vb07rczQOhoqKTrohU3pMqeXgbJ3fwP0CX96o0qy kMuZX0xpuI/+cXrmWTHV ix9Z2N+yEN7aZgAOl5XWA/2kYwBTPFfAelD33dGSTNxeGFvhhJJy3f3mb39daZKOhHEMrPvuCdV/u5ir axOD57P0Ww9XqC/p5VN1 VGtvpMk1MrJicL/ua9O1UGD2EiDyb7GeNn+FgU9MeauExKwtw41JG4jWd84cEusSMWZkeJsQChjB4RjB NQAyanHMgF0gFd+/vLzc h3HAhmpXTYaqPozcQMvDGmQtijl2f4CAXy34mtQf71fnzUJeaEbFqhkQ1EZwdMUTAQZQDFqWfvwtHSO8 tFc2Wrt222tmJo5TOkIc aZ+L1fZ7quqAL4W10l0aOIKKI0iBpfnx9KgkF8yRMenon0vEiVmZly+DzlI2DrgmP5mf0cWBX+rnjLIJ /Jose+u0MLhYQbKYJqNI1 ZIRfE+IpRCEOhSDApwe7VLh3cdC8V//g3sGOGYndq6Sx6V8t5IdlvKsK47L+45gbaVm0cM4yPVBWbUzt msuwWJxyQIMDX6sj9K+z QSH6J+RyCg3snfxuK35Gos7MdoRT/KVpG/4CXDH7bp2f1t3fPmZ24oNa7pdxy7fT9TFvKdKkIWeXtQjs hAPwaLJIYff8Zx4oC2Vj gmnUuG8tNouPIP1YO13noIkFADaUGqlunjB4hyfZ3F/ka2j/MmZTt9ZNQTYuEiU3CQnkaTajmi1p2jn0 Qqbw4dicDqRv8Jl/dryI Qs1n7bJdo+9qMFQm63Q/Z97pi9C/6hhzPFMfFDIi8LdqGAKZ8TvThrXEXV9nMBPX11niS8xdKHy4ewB/ uGBYjh36UVIrGOR19Rbr gyuLLr5yFgS7sVljwV1Xr15r693HokG6BOHFYFRtiVGOOHDz4fbjsFEiQV+Tapcz4LMdyOy60sKWv7SE oFD88KFY7SlM0oym573S i32p6RyU+vmg8f6Gzl5ikrNYcZqm8nO2Jkbyx+/6wtyIuXQeHGHddgEFaAdp9Vo1psOKcaFLhaAqI/oO DrPT7WtgtsI+KA3ZcGpT R7od3YQMXqfhe0y0cfLGpMXJ0Kl841eTF3O5T8M9oqXUuLbintQi+dHyaiHADMqRGaqsDpJy3+alos4z NTdo7gC9MIGOydCbF0nD kUMIiqzNce35eSkI/Arg0ramtoWzdx5h6j1AC8Yn7/U+u9mP+Uqfvw63zP2nWAbe8P0kKyXC8fGgPC+p /cHuOVOJTxjd75cUf2de N7KwBdoBs5S65t9QwjSSfJXnF2f27xoObdhVh1+q/leFN4C9NTDrRy5jwG2lJfPiQrAnaETuxmy+ucss c8Xfy/tD0/qNWplmDWSv b6ttomfxVI6Q6fs6FhJ6O5HlW2UUj2+mDD/RICU7SGASbzzpD/3MP2O9gBZnSP595ucg/4tNd0XeDUhj 0Nd42eupYrhaHeHt8P5T nHI5hcU2d6VFey056qPUmAPSYMAW7wRa8dTyiYmrGpsG3dRa1SACoYrymrzS9gmsZYjqpvybpOs35XR6 dI0W0lyiqtXBNN3hiSXf FK+wlQDJmDNyVXq3svDzJfnqNfiV1UQ3qqFqXqpMVhNETdNJouVZLArxQXEfW7MRNR1zVUkUtV+H2DV/ +TOiK5FKCNEUZjHSqXcQpVH></span>
</div>
<strong>Patient Name</strong>: <span class=clinicalNoteMacroWysiwyg id=[id number] macronam e=PatientName spantype=macro title=#PatientName>ISAIAH JIMÉNEZ</span>
<strong>MRN</strong>: <span class=clinicalNoteMacroWysiwyg id=[id number] macroname=PatientMRN spantype=macro title=#PatientMRN>[id number]</span>
<strong>Date Of </strong>: <span class=clinicalNoteMacroWysiwyg id=[id number] macroname=PatientDateOfBirth spantype=macro title=#PatientDate OfBirth>1985</span>
<strong>Today's Provider: & nbsp;</strong><span class=clinicalNoteMacroWysiwyg id=[id number] macroname=MyName spantype=macro title=#MyName>[place] [facility] [place]</span>
<strong>Date of Service: </strong><span class=clinicalNoteMacroWysiwyg id=[id number] macronam [...] frequently. She is now talking to her marine fitter about partial hysterectomy however she has not [...] As much she can tolerate</li></ol>
<span style=font-size:12px><span style=font-family:[place],Helvetica,sans-serif></span></span>
<span class=cl inicalNoteSectionVisible id=[id number] internalbreaksection=fa lse originalname=Med [...] for today's visi t</span>
<span class=clinicalNoteSectionVisible id=[id number] internalbreaksection=false originalname=Smoking Status re cognizeconcepts=true spantype=section suppressempty=false>Smoking Status</span>
<span class=clinicalNotPremoWysiwyg id=macro [id number] macroname=PatientSmokingStatus parameters=ValueIfNull:Not recorded spantype=macro title=#PatientSmokingStatus(ValueIfNull:Not recorded )>Smoking Tobacco : Never smoker; Smokeless Tobacco : Never used smokeless tobacco; Vaping: Never vaped</span>
<hr><span class=clinicalNoteSectionVisibleid=[id number] internalbreaksection=false originalname=Depression recognizeconcepts=true spantype=section suppressempty=false>Depression Screening Tool Status</span>
<span class=clinicalNotUniversity [facility] CentermattioWysiwyg id=[id number] macroname=DepressionStatus p arameters=ValueIfNull:Not screened on today spantype=macro title=#Depr essionStatus(ValueIfNull:Not screened on today's visit.)> Screening Date: 09/19/2025; Plan: Patient declined treatment</span>

<span class=clinicalNot eSectionVisible id=[id number] internalbreaksection=false originalname=History of Present Illness recognizeconcepts=true spantype=&qu ot;section suppressempty=false>History of Present Illness</span>
<span style=font-size:12px><span style=font-family:[place],sans-serif><ol> <li>Patient reported that she has been anemic [...] has heavy bleeding. She has consulted with marine fitter in the past, however unable to tolerate [...] <li>GERD
</li> <li>IPMN
</li></ol>
<span style=font- size:12px><span style=font-family:[place],Helvetica,sans- serif></span></span>
<span class=clinicalNoteSectionVisible id=[id number] internalbreaksection=false originalname=Medications recognizeconcepts=true [...] suppressempty=false&q uot;>Family History</span>
{ }

<span style=font-size:12px><span style=font-family:[place],Helvetica,sans-serif></span></span>
<span class=clinicalNoteSectionVisible id=[id number] internalbreaksection=false originalname=Social History recognize concepts=true spantype=section suppressempty=false>Social His tory</span>
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

<span style=font-size:12px><span style=font-family:[place],Helvetica,sans-serif></span></span><span class=clinicalNoteSectionVisible id=[id number] internalbreaksection=false originalname=Vital Signs and Pain Scale recognizeconcepts=true spantype=section suppressempty=false">Vital Signs</span>
<span class=clinicalNoteMacroWysiwyg id=&q uot;macro_[id number] macroname=PatientVitalSigns parameters=LookBackD ays:1,ValueIfNull:Not recorded on visit spantype=macro title=#PatientVitalSi gns(LookBackDays:1,ValueIfNull:Not recorded on visit)>Blood pressure: 132/76, Pulse: 75, Temperature: 98.6 F, Respirations: 16, O2 sat: 99%, Pain Scale: 0, Height: 66 in, Weight: 179.2 lb, BSA: 1.91, BMI: 28.92 kg/m2</span>
<span class=clinicalNoteMacroWysiwygid=[id number] macroname=Immunizations spantype=macro title=#Immunizations>Covid-19 vaccine (UNYQ) (12/22/2023), Not given other reason; Flu vaccine [...] style=text-align:center><span class=clinicalNoteMacroWysiwyg id=macro_[id number] macroname=&quo t;PracticeLetterhead spantype=macro title=#PracticeLetterhead><img src=data:image/png;base64,tJRILu9BYalIWJGCRTlFOzYFUCHVZDGiEFURZRK8Cg+UAAAACXBIW LWINI4YMGXTh BEPYq8iQLQJyvoHOIHEWLh7B89sOtYnt6UzEyjibVJHQBONBJ63sKSsw8F5BTOvY7fyEWUez74aRDcjB NNVHN0yFPGCWAsuFXcwW MI8RlUlzencSRUlWk2nFEg1sH5agLR5SSU8uWodldr1KCRwCZ4kNLxfzvasMBWtEoWtiSv9cVM0qx3zW XXnUqDcEE5UHDYczhAdT y5qFVWbMZUnJbicXNA7VNU4BWG9XXKxGFQfGwC6ClWvTEHaOwTuGsHmXUGsDTWcUKQfJvQ6siFlCdVHD aW9qMlqnltgZUJ0Epz7u QS9Cg99g4rxbaJhg4WjTlU8MIoyRJGxMoHdxkTcPWO0wkIlsR6fcaSiLjQ3ieEuBmBvj7EveIJ1jP2cF DTqPhoxGe69xU8kQdZ7m Xrinmb8jGZ8Mzu7xNJ8Ht6dyf8yPS3bEJ6lk32htOVzKvToFQ1jVGvolE8mHnJzMLOqhTNtAj4ahPRjj W7qrhxyFDIsTUkfoHVst WAqOH3yEtHuxS6qwtA4pDthaS7mfG9dKKQeaLHeWy1mvrBcYVHwBeUoP79zF4Uuu1Gqf7jcrR6xPhAwF dH5yHddppm1kLBXFM1sp JQ0cBafA38lZtNmv8WcYmQtgJ17MWNdAG4iB62oRcJrjZ9kueV0z5OZkvA3Qtj3eWS9Sz1tai8hXE0rC D5hx20twMTlVlXjZV5bO UnkAD6EHQWpqAKwEZM0DP37WbEmdM0qXmVqXLR4w6XMq20bRLHBFJ4sQWCPkD75d3Eoh5NgEfIuYQMyQ WUayI36b6UcPKTbtI0gC mFzMBP5YSQyqFN4XcTdPwSxHCUzTeeRYQC1Vjb5EmEpSEN6GQBsNVusxCeNr9WcHugWIDVyNRWrHPLhV SQtPTH6ZUFiBjGhNBL4J pXeObU3mKD9JWS5HKWzkVFUVRAnKVVpUCYgEWYjMEQ0XPMmQbBwXMT1PpDpXpZyVgkvr7QzIHJ1EsmlQ GgbL4LlYoKrfKkjzL8jf A6gSvMoyJ0tHH3uBK1kUqEnwJ8dEI51OX5kjWYfP7AYBH9ssU5rOvnjVLn8DOEnQzYnXH3cTNRuZBQ9L qypPPi6WY97EiI6GJZuL dLyRFSqUUibkI5GWdDgW0UsBA00DGO8LbcwrI0gaTP3IUFrNcBrPNZlIfqoVu20NXO8BVb8RbziDLJiR wTyR5Z7UCGaDcY9xDPQT EiAynapmV0grEIdX0WjHZ58ZUM1WkmesM9xaCR7FZYuFdDjTKJrIgyaZv39NVX5TGg4IdpcKESrFiIyO 8W5JTUgZh3jKNZxd4Aej 1zqeWlSw8S4nKIavIOyW6AlvL5adt6jRGWdPxlMNQq+ZEbtJQW2oPt+yY3bOuEbVBm4ScX1O4F5DLCtR RQuVRQ7MQBoVirTIEH7I yQCWsAaPCcdzxSuPfmiAoF5H9AwIocVIIk+LOdivWsszR5ayC5fNpBxG7HjWL94CK9hUCQ7h7EvAlM8f A0eTE92SGrjaD1kqL5vN HJkZjpTZXE+YZltHGS0rQydv6GJzyF7IBP5hU9vAXPiszIakJBsNqDjkGO4fFamjlX3AI4xXKwEILH9p YMbbQshVliwUaTgGPS2Z CM7IGCaUJMwPR78JLa9YEZxGGwhIGVsJBI9IzGpp2ZDttQ4t9xzkj0lNvMrQb4hQU7yF6KyJTcrVHtbD V7eRqktQBKbd8LVtfA0u 11kcGmokpMFQ0RidD4iTRGhNdErXOyphI9jgD4wOHXvGbVvUI3tZ9ekfH7ozGveHm3hHT2rHBI0W6BvO jP0M4hzxQ1KFdvxa1Oqa nk+LTjibuXxFuFow4RynSN5zK4wQrQ1L7HfVayOUNM+TFvdfLf3oGWuFJUzWyL9J6oyMIKsJYLsRL6iC SJyIj8+vlG5NLOCRoNRQ EFUeJztnXVgFEcXwN/K+dC5eYE1VCUwfnUJPz/tJGZznKkgZRQoLgpmdq1UNEtgGZTeKOfzG3qx/HZ3v u4JgsecEjZGsyB/uz92d 97Izu6+zRpsSfFpVIJyOIbgCBHjlFm3QBlWEhOnjRYcLUdEdZTYeXXyTRwbHYbhXMLQhvVFM1GErAptl fXrZZKLzXQdUXzcdB8uB mD+C6YPmQr/wgeWoSsV8sKXwgWGv3pQUG7fud46YUqzoSREo/lyhG7nKQ6EBbGn6aiQFl1i8rf9UMKcF DGOKjEPzbZqwxDTln2c/ bRtBrDaSRmUDMG4iNvG96r7w+wnkQfMS7R9FZd7WyNY2jBDwa7NITKnSIUToBqQkSrM2wqAJkkqHfk1n ABSCpkx5uLXFLokMg8J2 3GRHl47G0RIskpWna5m36kxIgAjjrCM1wBECGGQYz8BSkTvGUcWeXPPd+LEEumob7+Z+hORJX9fUGzSP egTk6Af+dJdX8Otp8GZc 3zd+8ef/WvJ7CpUbSIpdhNPNTTaUVNEJZSxdlc24/oLf/5BkMSEiRPH//YRdLGgF1xJTsndizt+9bpXj +2ulRrqRn1t43V3UmRH3 2KJTPORiYdfHDd3rRyKXCm7jgX1uU40qg8ZdkX2F0KWQ/JfuHia51//R37nXAsTuY9B0ixJeuFolakYT LSgg6eulm47yexTUr814 qS/v/8bLIosqbRUGZjtCXMoWP9Gqx0jSZt5yzMwfSfrch4duoZvjZ+/v7//fCIvgb7nMF+48+cWx5baq 5VInno7rYzyB+zetnvJn EaNm/cqlZxyVzRJeeseKqkMLFOah4aEiP0NNaE8/YJUXo2H+c4R48XYYpPzOxsBo8QJo9xvzcB0McHRH TAYDAYDQRAkSRIAHMdxC Ny4ZRkHNviUAh9CQ2mMV58wUXRg0tJIo/iuxNObGneyiO4IJre1gIQjxns+mxwU6RgUMApTDQBiBVyvF D3NOqACCoWKQvwdQ9YFv If2n+3EMf9+iZpT9ciou53khZGgwc9Pt8Rm8JpIshuLx8Ja45B/ubDaBz1gQNhxWAklzNi1/5gqfr8Tk Utk7uIc+9BaxjBHT3tjG pOkKYNWm/+JZjmRQD2dhv87/+Z7B0oGoa3AYBZ1SOaxDjOcd48Kh3J1gpYTWaAFlam3+ObBRu12rbooG jqnBlLPYZElCqm8Vse4q buXSIVg/p8rdGR8U8onp6389cBLEcfCAUwWYs5lxdu2jj92zzGScWynAZCfERBKV7QgZ6iJ1AvqrWiXy ZiqGGLNdDUFHfQbV1tje 1VFxNwm9jQ7kMRbVtg9njSe9DL8u364eaUC0GxjvTo6sFi00DS0dk26n+Ah4NRgn/9+FaX40rm06g151 u0Qs7OqvWFxh4/fth1/e Rv1hA65pDlbWPsALljfZUlF+/x0gIh3jdroe7iPsmSRNwlhzesBqHhC2fsidqA8NCjiuJJZKRn0gNHrA jCQdwttcIPMfQVt9VcOE +GP+o4e6+zm9oJSEetjdBzIjwK2aT6rPn7Wqkv34tfPywwPg1fU9Oq2gbOk3R0rZf8pfMeEsfDg0V19o rnXY1RQKQDPkgclGYNj5 XzLeFUoW+7SxYsFicXHx/p4nZrn8XwcUGwqHf6wWMn89dfP6mgMeugHPtpYQfbd67HjbswgZRXxYbraV W2WbGYrVZr270MWCTyxk 32P0XWuXrM3aoZPr2a2v7Ig6vb5VdqE+W+AFRYGIYS+GTmqnI+pf6javQ8Abv+Q9IwMRnOJ3MOVgqbEh X2WYsG2aLkLn5+nt5u9Q 4tupA5kh5BAhKPdEwsd370sO+kEfvgjJsBZcrF49BddZu2aONggwHiV+a+Sc3zVLTJqRqv2lcpErqIlZ g459S6TcVQnFPbioDRdp g2eeH7Jyb1eCLiZk1nUVZIFWyQStDx3HNKuJvCCaUq928+HRz9+XPWYOl0fS5PV8tc5EgIoPRFf0M5B6 49VLbjZ7M51L5WLQSIEZ gRQBnK41KLNU82emelW9eoBelbWvAPgWfYxh69tfy1nxzeFxW14MsQ1LkwOvc6Pgk0lKkIl3m2tc4avG J3fPZA09cvQu8vGVbt9W uzqteKfFOY/CRKBBRg34Xqwn21cm01BxBWVwE9pOMgT8wgyU/4gvV4/n53yHMRUUi1Iq9DeZ+9Iq1FH/ 3T83WIeFFFj3ppRBHrmq 783r1/nj1i/VXONDRwAhMenFXPXqCBs0XPod9Kmx07UnL/R/MLBCgsDqSmpDMPUq1+qRVcl2Ya33cWoM ppHijZHByc7u6fR+/Vfu OfXqne4y4f9GnSTcSixPgjJWt4DHKEdFk2j3QN6/mmkc08yN5+0EULKOcN4uLNvaSERs8uTTxi5eaTXX yWBkV7b3KS4TQXwKXM29 ZVrWKzIbvsMkYOTHEfxSn27Em1+/wYz4fWTter1hcdncQAthc1vh53PxB7JHz0+9Com559QZeRcsbgIM KFGI+N0GSTPARGvBuCJg VdWYWtr7SCWh2aCEcm2p9t6mRj4tJutIDHcaJMYdzp1ow40ZjiaPk5big0lqcc9vYmdNBzglNohLscRn z9xfWD+vWCFhQGKokiSt HdwBACTHzFB/SJiLgNR4un+ykPQP2dhnb4GUstaqGdBurMHYFmpVOnK9UAk0hVH8lLWqrOvgvvO1IJBW ARAAAGERqPRaNSqPGWeU kiPMWP8jsSqCWpNpWIJtloMstVV2m2N8fk+5MfEBYb0cVKtjbYz8JXzdVjur7hEhRUiGuhAmI/wRYMVF yz6EyytNdnAwSBrq8XsW 75y+jUnm7axDl5fPBgypL5Yde3r3nCiYqyPSJd1NjcabNkSavsbrrTwMaLtQmHMWXdaldt7mef19rdX1 9suQFBXQ4Nmze3EoIzaG +4/kRbjNsua7Rx3t98vNxcm9bhSURHShLGMuHfQGURRoJVb/FJ5jCz3ufQNHtvjMTDVi2gGUZ5IXVolW 0+xAg4y0I2wp2Baundxm 8PGje/tbLihrMBhf9vZFwowuXguk/AIKl/Bf+L9xRVrBYJyPTSU84h5Q3UyrS02a/y5e+K4Le2aV+rnI 32esrEKPU0q9l598DkCm fLUNYGBgcbkSkNx0uia4cj34BUrt0cxDacKXxK7eUHR2ryTLRCFiQQfityJmYeOY67+vhzLpqalxyckb t2y5fD+/S/jXpbxKtOle /knVu2lRZzx7AqtW6kWxoibeLsGRTgz7rj3NQ3/GE0IK9dS7/SMPOyIpTUUDXn8DQYN592uSMp73fLaF 5bCfcuWdDtXrsFXunW/U z36/A4iwu72525/f/ZsyJmzi+jME772hkb98AaNUb3f1LkFjVsNpdlO1OcfVln/yjS0VKQTVK+io8t6+ vXn2fGhgXczvjiM5svrz 10T5ovm8C0++ruON3hI0jE3VUJFMY8SaPX3ay5IGrAYqVFFyQvZ/iqHKlhpG2p+lk2GBFk31BYfrhQiW gpcHZymTZuBEGIRQghl5 QzFRXdss4ppV1p4GhhuUb0bp/cr+/e34GLMUAt/BhkFmJKs22/MGC9eU5Q7yhKWHky694ABRtpQH4kZE LAdWJWiD06WwDQmtA8vT vu5i+qebkzn0voSh2oJ8rYV2k0JxdvZSV8DsvstZXiSKno6dRuos9EbmhkK4+wxrlEYsbGKReL8Crk06 tCl8+3kz3Lu0IAe6aZBP G0VD6hift5lER9UWKADWxQaWMVZsicCCxOlZJIcwMoiZc5lwVdHml55qdptJKqUWZHNfZXbElbZJS2MU /xmFLnhr9TBx7xYrp2F7 OzuRsg6A43o1k8aM/JvUKSXlrUnGdb2UUo00OeXtgiLvGvb0vh6k0Rk4hfHoGeFCtpDcc7hEde3aHN9Q a117yeWvc29xJoHaRd9y ZkvFjxI/OVy/431sx22mQzclfzfRc9KmcfHW9gt286PvJppVHA/B6MzLITbffc6ma7iswFQH/62fauLm 4eW22tAj/0NRtbAwuxFC fyW523kWZoJS7dXOebwl3E6L9QKXL7fKa4Jy2xH0Gh3qeK573iVq1uCBZZebh3aAVaFulZoxX+UWzdvD w7pFXz52klg+fpX0jwO5 i9zZbwwC7h5JEKNIAJr/wMluQVEHfWHm4z1q9fqhZkJg8uuSMLru3T+8m5Hr0XJHS2Poixpu4YzrJgq5 SiyFUAC+32G5LARjKHcQ mseUWAcQecIWrbR4OqQs1ykILR1gtJvSXPSCcDkqP+OmByav5uJpkcDnqsca+7EukfYUEv2Mlwj+NbV0 EhWq7pGxJXC/wsEZPyrV 6fs8QI7wlzZhL3VCM0jUjXf2G//MQT0hgVPZpqwolpbrBrzw4YrLvvFTEJpJQPoqXgAhRZWTQx3OeQsw Esb97F6mO2WCqBHh2rZh d+0kfMrZaM7uTxjysTpK0sQgTGC6VnHLbCpRfJTl2YJd3Xz3syuqmdPGPvYE8Xd5ILlUFhCZmq2O1SCU 01Obt2+U1xMcEC0Ai0iG /usaJPHU2xz471sXXi0sUeWnVatCDYVKaYO8Hi4Ss4+UaL3ZmrNd4BUkWVn29n2U0hq9if14x3FIj564 1VPHttee7VT2tjGdo+Xv 8s8SzL90dB+O0EtUUzUETP5BiuezaLwvrZrT+9ZLZfyvTqCYQLvwh1+Gja9RTJHKZq5RlS29h/3BK39d JaTXnuUrzF98YNPibYa8 xuollUKBOcDpk1K3wVKy61Ks6CNBwOrJaI3NRSkzE1jcZlY6Cjl3ZJaMiyfoO5m1mWlG+alm4FskwS18 moGXrxKp3rnKIizaGN0+ 3pd+7tMuIsvh04LLFioseKRBk3GuQgKQ4iLDQVbv88ftXDeHe1NXWPTsTYPO/Pjdm8BAnwTIyVyJuv9n e/HsBAYtpv4qs5Hc0Zio F7OBFtotOM/8OIZqmSCVo01gJWhSpB3hZvfe+VqaRTLlX4jpRX84baH1+bv3VTjbsSiwOiJCzH5x2oIb dRRic6xx/b0QN+NzmMZQ iyR/GDuWuQj2SEcoweRsLRtMfmE0Y3sxb91lmKFdy5UslpCano6QcIGioj8Z8IEKv5Na911U/6HlEY8r +8+exXLPB8oRTdCUicE2 33YqoUN09anixQwoJOQuMsFXjk7p8wGLjYNK/nn85NSrveCm97p0d8rvHUskIdyLDAjIkQv5eBrHMyPS hEiaLEILZyvCLvuvHbJr yjiUuBAqOCHsuiKmrIKjxBge1jfXfvr2Expwp5nS53nzIrc7mEI4dBgxCkENh0d3WdKY2WWMyIaMtCZR n4ueQhJfAT5Uy7WvVUTq 0W0vwN9d4bnjWoe4i/6Zwp2YhTe8ApLKMTGecPJFS4g+eYtNXrgxdyGbuyOYkKtfH4Ngiu2rHCbWgeaP XsKJXZkJULGa5SZrKsF0 63bWEQtB2OgV1qmRM4JqXU+TBRPaU3lTnysmbhETyUbQdtSUPCve4fjrDrSRCdJhpFttz2yRCBUS2B8X r89M5MP/yz6q/Z8sQpmz NS8JgxkMyxS4tB0dXfXruKX38h0/0K5b2A5bwNYNAWscS4N0uJ+JiNLGDRrLKWrLFOuQUnob3GVZqlF3 2QQNto23rMReKkdUkSYK ArQgrE8mj5zimwY4Z6callcINJPNQFZoaN8Rh5GBiXTJD9GWHBRNEojJM4XhJsKyzP2LVm2V4wx6rTsj wtILSu3WSZEgWnXUUADh 5Qv8Vaq8DgLrjwCaTLuhsDpfc1qCZqeEtct0x6kFoyTEZmg8Gr0VoWEHK449YjJY40BBplYng8SygvBb zNS+fPyLONZcpWK+axgh pIUYBcSN9EvFNBYTcIpoNjkqrCV07ZGQ5F8406ZT0w3LI/j62++rjtVIl5aRSckxpWzqehCjNGHYJoZg zYKW1e89Eijrn0hHpgCC Yszz3YfhBe1S30FUkZYXlQWOllia7ARwFmTUDAmS9ntlfucuhAL46hcO4lSNV1mjjAfQEsgsvS4R/YQY jLysTSh7CnFNi9Vl5TGj 11lCn23BzEgneKX+ed+N2rP55x9t/J11CA7qW2Ra0WYCW/PkTuWcas/Xdt9x55U733cLH+jst1dbFTjG p1alyvjkPDZAoditHVrC q9qAR5fUjHvMuttN2b41kv0dgzVIfWuAdbGLdgZ4OthWEOt+CCiTzcIekTCAQdGq8BQ7M7eg29QRLrsJ xkL72NDFUuInXsDRE0Ln RoDYL63c93NXYLmbsX74Ce6f0hn5Z7HRSKzkSEN/uiA3RmuV3aDWOEgxftqSyWZdqo2QIN9NFLdVtRp7 sYcUQ08h+Pp+ECkGJ9ch TEDbcZMj9XmLP1oZDP/ZT0HNu4Qx5LYtty9UYgEEpKdBAPb7ruxxQ/3lymIi7CxLZXUamma1o9mb00sk UdwWHozNAb313UJ7+Tl9 VAQinltBUJx+adKNFo0J1MB8+3f3qFl6VKMkM2WWZS7dNTg9wJJi02yOt/DmLI3DODdfEWHPFVe3byUV mv2YnhlLQMAUS7LhDGe/ Zq1rdl/JIFQbPRjtVpPUJZmr7//8mDMYv1UYlTm3d52K9AdLd5p4mrMjuPDQslb/rz99YD6pyvdtK0Wv CPKLo2BM964mlEdk07Cg InyL1Q7pLU+H7hgiAmSQND/AlBbbkhktczmQa7EZuNheWUxImOnrH13b0aQaGjis1PFmmKqyTfjt7Mlf 7Of/2XoM1aTBFESSCSGJ NA/ONbQSoDHd4XCoD8oyB4UHbbpvnYhiszBAfYDHxCbXQO5+Cvh2Uf22w22H35WfS2XoGp+aj4UiJcvQ j2bja0vE8e9dEMN1uoJY Awwd808l+B7yoHsQ1k/Btzii5kXlQtrjz8hTXa5nZrQXB6wASADZNAHChI3s3BaCMSsz9EBf7fkExPJS 9YMqJuiEymeJJ43By04D rLJ1j5ColQvEj/5O9v1ftEzbEn5z7mnCQNhX173iNr5YvYv32dFwpomxEiO90bRt4g/gZqBcozmd3Bc3 o7gy1d9UdLtNzfsJSVyG 5dtZP3Gv86BRnlNHpVl5GY763E8n/MB1IMrH8bciowQ0Md/618WDNlYYb3Uxle4jN9F0tCMNhp5qk7/R 6sWWJmlqRJAzzX6xgjdO raIcgCy9Mmg4fs5zbsoxVvseQtUB3cAJODDexC0hTuJmpel468s93qzFRI8/srRflKTIS9TIiAOYEJli 8GvvoRt2E6SVuyze0c56 +BGSU510aZhhExNWBSdCrMmsTWwNLd5ukK2280JGHymA5mx1kWr0M3rm6TkyWZzL7LHQTrSjAjfrTenm EisTktiMlJGjxu/88/dP r6+XU72pRVQX2236phgkHtDjyA06+lf8OjnOTskLiucx4shahLz4XM0Z9TprFGSSE8rn5PqmTXVwT+q6 IxzgnkTwyFY0921GQa2d RZT4aUtz3XLoarbm4RtMIj71QJbwNSkvL95wCp46lJs9ttXNWbSS8OMVUNwstuWfJsv/crxnTVKPx9J3 N+Nn/E71HVlvhntiJBua JKBj6Ss2CxmdoxYZKTjMA30/TEW0OEG2fVTTqJDq4pJVTW09Vku9J735UHsw3k0sR9pmSSjGdMlECi2q y+aTjAmHafOimdhk5KnL thtpWetR7z2lm26Oye7eyqoU6g9bYLjqfZQD1GFrdX63QqpUajWKaAZhM6ic5rBnHa7PLHposV0jMKKu RLSaGNxMhEP9Skw7W81i 9zjfatObkakxWjy0Rtpm7Bi1abUVIiBZhnSLl5cRzDAXDJt4v8aua3DEUa+LPgxcatfB7GwYBGjZ2HgA ZJ4gxON58hH+c4tpwPWn boh3+FPwZGsEdBzokkbQ37sD3t/gVwuvdd6NZjN2eOi0XW4h4H38udhhXFfY02FB0/CWsCUBrDCwkBiQ gJBkpxYqtFpxBWr+1YOd Sd4NKtw8kizoFfUukHPabC3LpMKIbUjA5nZq9jGM34hM1V56/sxjr//JGVFifUavtwMHwxhs5kOTIJhT 5HgfwRJkkKx+F6Yi0bsD WR0mZt+0/Y4ivywEY8jSySqrHhexDO+SC8MTKDXsgJlHqpXlgtxIKWEn3BJsC4fSdPNQNUt4In8eB1zL pVcVWFKGKywMJCTkwMAR sSmf9U1XXDUHTaXl+ib77eoYbxEEtgkLqhn0pLMFrF6/FvUxYch1uRYjdU5rkEWs3C0Ir3IgDI58z9BT IEMcGQTOFGs6sld1IHUk azRaDQaGIM+3nzFnjPKKKnq8Oh8cSpo35yJgCABZlOWPQZLA6Adtz1zXRnk5OL4XkEnqxMhPoSNzX7dV RNYEJrWCn0KlxXXkjmIS RnU6pdXKzZJF7RQ74bl3pzaGHKPvRcu4Xa7Gjl+qlnNym6X6WH/MpAcghmt4W4eXSWABwJ7RiMw4s28/ jNjkLhJI4YFpWjSLzKWJ gQoSVHiBOmrKnpRsswxQhOPcBd0ZvVxuNDU7Orhs9heRHj9z1HTk0CL+TjBDYscNzEJIRz7Z+0hjmEQQ hyxnvOnaKFtQw1UQBUNR NKFUFnjkBzzfqZ1mktqWJCR5JEHKhCYnmHSvIzphnm7VvxXbgZgiqvpWOfShrPpIZ7s3085w8zenKxhZ qrrMhUkywBBACAAApycu LCAGZfdfHXeXCDqKkp5T+qvUVjHgf7KwaOnWP04S/cgnYaoXkfFckijfpc1/IFLqLaaSzeJO76iDqdyb V80+GZttW3EGwDyTq1zY X52S8dvpqtYhuRnYdGwuy58X/zYDVsbDfF1aQMVw8fVPrJwANR/Wm4ekau6ky5wrZNzx7iLXxkyGHWNa SUNVqnLrZPy5XUs8DUxt t4QOpxYU6OnILDmN9d2RTu2SFa9riw5VqT4YXykFPXiHtH2xCJavq7vxuio0Eby6jvSKLjrF+tHCATGp xHqHAWIpcCyYNHGAQRCA JjuZ4kfsqBoTUzUxIIsdIpOZHTqQAgzdRw4O1vYgpJPqdT9wrbdxxUDansi77zVu0rLuHEJSDEwxPG5M 4yGJdavoIYHBegx6CaYP HkUQrpOrxtp6i5JPHY2IOb0x7cPg8ObIpI52ecT/ClQNbtYXTZ4cOWK8pvq2IiEbi8RAuRAjZtHDYCDT VGjrsTGjrkdqmscDGbru tYuLI8NsIoCV8aXZ3cJnPDcrR3duf8m33pE7+/SosAq+tOca3iZG24D/zPzIOtXmjKm0O1PtsXt8HNgp iY4/KhyEdQVeXAmMS2nz APXTKI3IhB/S31g/a2nmCCPdOqRak1a8Uny1Ym5zrDBdQxUPGjSopSn2aKPG5urcZHGZB95YTZPAdfTB 5NYxTJulhk1/Vj5M6d9e 3+cSnvW0kahKo36umY2gMyPy7S4k1jXCPCytag3mWTsv30+FaPXAfu++FoDKCDaHGtLl1Z00QlL+nWLr z95XWD+0vW8cQwUl+U9e /VEAqEg+cA035h5a9bDIwLqjj0bOfGuPSJ/M2ecHc4bgMEo58LXfAXgm8IHnkBrNyaYkGVjOILp8Twfn fQpOA7rxxTJ4elUCoha6 ym2bUAcEi57HCNB7iuLmLO+XcW31obii7Au6KP8Tmb/8kDo7aoTuKoHCQrt5ycEACNdQS/Dg3OeTIyLj OGgne9lSxZccaky2iOjF RRWFA6EOop0TsXLrHr06fg6d8n02HSYBvctNztADYyBoQfF8tk56+uhb35HzmX4vNNAPxcparzGNaJfZ /9pe/twcx7rrC77y06eL AieWNRLVBzUYiIc6wyHWWZsKyeOFYvp+6OyejiMbLhiWqa10dBZE7V0BIpCKMPby8Pu/otf7xIEAUDJD PWbCcLJY56vGJ68+UT88 kzXlkce2P6zZEhznsSoxS5xQahlf9eWje6pFroKuZ6+43Rsu+vF19QGynoxymb2Tcw8/g2qCsmJHioZD uNXi39AZhNoa+Z+mF34W FaNFVNRMe9GAN2YIxTx+08ZMvgOoy9YjAKYEDRSHZg7VFQKSeinQvVV3cWDBVXIIfF//kLun01eVYfSp of4RJ/ApAKZbed2JP4rZ I1aQ+h1qCUnmy8YEcvdxdlKCdRQnLBwb2ErozppyHDB8KP5tW/uCxPikFCkqRykbBKsqtkQyWxArwPT1 EKCAKEYOEbyIso2/Iz8Q Wusr7H2iwFEIyKFbmHpo4H/r5zq8fh3bc8RVyTyLGmnARP7uv2PiaGUOuJXbzv2qPwUe/FSyBgArLAwF kQ/frz0l1+xi37KvjZDT wWKEEvmdrSLshsYRRDfNfMYfDZaOf8ZLEu1QxuhxeSXEKOIvw4FEnGYuZOPLHJFEbFJvGY6Dieipufjc xQbGZJtMwqZR1xU5g7O8 BRYfHh9kBWVBwAZrNWSYKoD+Nk9Icvhq03dX8/3bdT1S8XYF3CVfFiRMmf/QiJpJILkczUoLY6uJPIIo LX7o7bvqMdNrn82mfgpT bqV2zyvxCHmPCQKcmwAbFMX3ALFpZlP9BVy7zj4hqAideeKpVxa5WQbpjvGNEVKlnhcPJuKr3zqsrj96 nbV1Rp1+tPFlBqwwsIUi JVoZR8Iq9kZ1Wg0KIzg4Tx8AZo8XTlAgnMea12F5xVlBPiDYC0h2fCI9LnnzIgBQKSiV+fJI26M/mHix FbODDVVPDwVEiHEOw3VF ONvqXPxaUM9nObLPdNpfPDxgOabr/++/FeDt3/y9/MYF0/QaYqIQAsAIdfdq+hHZnYh3YK46f5UzuElk MHm8yZfBVmXqiQhO1IJI T17Wu/aqg4qxb9dQEv1bLBKQEaMXYVcO8Gwu5ees6dnnMv4Rkxp6gTl6ImOMzMksTU2wHNE2wMJEhHr5 +FM4irJYBAdzaAdMNPKt UugTrrAUOJQpvArZUL9dI6xLyj4ukm0w0w+Stf39NUoI8IQyxNT6h+UmkrpQ5hyaiGlmGZppRYMG9+rr RRodHTjJFLCYKCVCvGrZ 7Vf06V5HFLNse6+a6ialcVWxKKqOve3egWO9e+i1+t/RhX8qz6/LLODFZyQYIpZGJlLNWzRgv5DZPdvm UDQqHHjeQsW+llrF1ZiV h6ssDD/CCsl7Uj1+6hqfEIYNf48wqESHClHIdbRFKlaVP/khKlUm45K/J3rxpZ1f6a5/dXw5Nwfzo9B6 cwXRHRtQ659ai2hENIJH wPE/BLfhLJLQVbHvFfAfAEINLwpZGHRYuNOWEdOiiJSYUOOmdp3BDCZoMHPWNxhHSGUMbOMOOiGlxPGJ DUNdbd2GMNGrDINKIfyV EVOKgVQOFrRnkNNYETSowx85M5/Y/6lCVtu5+xSKrRKsWhbGfaPE0Ge15RiU9vnswZbu1DwZByXy2Ez5 sw84ud8+/mGU0EPlZcyN RGufP2GQRIW6YY6mWzYDqqfxQJKMIVda4qH+c/x2F10jnxf6ng8J6yOyfhsHA8LHSZCiv9GbDo7pl9zE Pw6ExQbm521mrRMhzm5l OciOm3iulm2aiufpUqc6sNsp7nW7+gLLn38vXSo4sJgrLcdcWq9gHvFVZH6y5z0xYp20IJQNm+vtd903 v2Qo8cRCUYfXaJJ2johL o6n6pi2x7Dk5BsQB736rvm1B96JKDl5XCVlp3nnRJKRkp8FCgWzYp10vaxPFSSyPkADl5AhwLwmXQdI8 HvggEgk+jslxvyHSUxMn Bt45fAQzySf3lKln0fBWOlERwOzkNhwxfQuHx0ZcGhPF49zf1TgzR/zYnfvIGfR2O0gvETHc7q1ZDqPa RCQriWy0VChFl1RXM0ds sLaClMQ9+4d34xe1+LCgojPVJnd3LsghdkxKaZDIB8yCc692FfPElG5+PV+nogdx3rrfmcWFcYXm4LI7 yBIjq8y1fLQ7s030KMND 8SHM/V6/ZGDh/zK+ogx8c4gzq2yRSv/r7qMsJATu5hyeTRF6B++6dS5c+Hyo7/6gxJIOpSZvt3+esSI6 UaQR7bqIKKBtEUR5QfwF 96/Q6eO/I9jWcYDpdeTe1AmxdQjQwhwLbqZx5LD9RGjnOKqgfFkeSkcQItFySxYXd+PHVOcWFOmTeO/a J+bm/vj+SyzhSyPm5PJ4 ASiXf3zh/3xxgrk8u73rLou38S95MVY39JF9DmpGm5vfNZ/Ln/z+g2/3X/lEPcITjeY4l2phZ7w20xxt XG/r/kiN3NT18/hA5o8W d38SzQL4weRt4B8DpXnl7ew6LUZnPPHqMc/e/KbBpPd1ek4Bi9nYf1cTrWzoYxIFcK9wQJQsCJUFPOGp Adrw7nhSz99eR0mFos8j JnXZQb1ecPN8zQYqCKJs6l0/HrDDZOEJ04b5mMfoIadXeZTb1j3I+EvAzvSiEx0ioEJb5EPGn2rdOUk+ hFHoQLFrTjRAT2q9bdyn bIag0QkO0Gp3dCdpWxso9wsVcVZTrKSVL1HZlDTd3qn0xLNYZEYtUDh96JLUaYOBF0+uVa94Lu1PSShK Oj5aim0eCyzMfiyWe9+R IqgF2EAQO172aWIX8GlZfazNsI6uJqOvf595+8w6pOXwxjShh4y/ueE840KFfsAZigH1Od2MNreP6KVO E6mm5MlAOtxsbi1rA0Np bpk7ITQ82KFn954gBEOdf5GzqtJtjd+2E1wQw5Yq7/f/kO83zMMDkz3lAuWWOtXkqa21QAResGiuAzLp GkzqcxSIXIcd/5ciEqtc pw5HZPnbfw+ma4254BwSZ+NWhMeHvbg/v1uSfeHdIABb2m5fo1s+Uvjf4ImEJI7sjjFIYxvYsEarOpoF RzVvXWR7ecJQjPdocfQu rOSVa2e8sjIfcEQyxu3cpHAlnv8mbqKQG4jQQiG8Os4Nv3vTse1a/kuLadpLJ5EhKGx4+ghbLru3bRcu ZC0OFCHZCroMHQnAA6Qn sDBfBJwFFMn24AWtLAwG8ttxGPId/n6wyQUTr7CKxt0zhQMr7rikKKJiRdwzETJGfKh6ym6r5mnbYq0F lBs3oNq9pio9bivWE+kj 9SNEMEjQBXJKDzy6vu9BlLqrg6HQs8WmPDprct/nCKh9GiY7kIc7se+ez3UEv16P4CxENGpaGG374jfg gMX9q2v+z6o1MHmiwbEU 0ssCoHwVObmc2R/rvgTa315/2eRQB7kbf8eW4kkTNOVTI7q+6rREYbVqXZWTCtBk6cuWrvt9+RbW2ScV PNAg0H/6oQUpXf4upFcS Cyut53biq64zUownKtOmLcFqdoHjzxFz83eATEj74wUJ/7Ytr1v/359+h3TJUejjMXJT9uNbDVJAcDoL 7Ser8rLirc4+3aCUo8Mb 7DrM5xBEDmX0CDKUmIw0jDQeSgQseggssw8cBQIdPqLqEO+/L9draka2aLC8VGrFIuHxd97ExpMNsWFy b00z9xnRTEqSc/euZOcn NkmiqSowdgBjalzsuZ1m3qp8SKon45/sVhcUFE/aJKHRtlCNy94TjKN5m1+kS7foJG1D2cVsPKCOFf0g SHnQiwuFgAQBJGWlrZm9 vgRbREA4XNh0+p1a/MKRAzv5Pg6hq8+PqWGBw6pfLi/6xk9Kw9rAvufzANJmtgXQcgQurpU9Lu6wa7SL 6btNyimQt39GZpdGHQdL MOu1ryNO0PEyuVr7vzTal9xN97MJfnCaWAX8iMm4o8rKUx9wDWIjeEaYW1bIbv/f/etEB28VgCOat87Z Jum7mYX9fe74+aNm+zt7 So41hJnGHfqJZz/At0hkFutE57e1VDd7OWigqpoWbS7eg1+TVRayKxLVB9eTJr50dzq1HOxdWkl4G40r 21yknj2l33YIDvQEsor4 WCe86xzLh1qulq6Z/XNN/C+J0eSl188i5lxjDlrH9hOo9SZuM1UQiJOVq91u9IX2bF3bl6y+/v6+fv6V y7TELSuMf8yUe6OwwlJc k27jhPevvuXA+oq47xr9KOlCuw2VUDrbQdBbVEsJexqh3b72DzFk2Rgqnv3Y9/Vyd0PRLwHI94bnlsF+ 2THS7Mrpmn3Ct6k4HuZa PUO74ORd7bMFyI0hQiqB45Jgl2bL6pcW/f4+/pt37rN/OCjhw/3ol104p4fHPMI6PSy1Lbn9/j7+u3Y/ kf+0N07d/r7+zTr0BbNl Ok4F3ZsIlcDk//y5Uvzg+EEqTD84PcHWREtHyknezobf+3a966dnHw6qksv4gM9JXgBxG/b1iTRRC878 PXL7Mfyeap9dTOBRqOSQ nyw8yYjJ1Y37qwLjEa34oPr49iNsSTts/utv6/f/6p9Vd89efJXSM6hxY29BhG6klYwr8iBWGQtB/TyZ Femp0S4o/Zsf1+/7p27v Oq8fdZNvBUi5Mpp4/ETxRizIhLhYKInBCAeGvr5oJ/Ky2l1SQwZyHU16PrElViKo7zitq/uhzXR5vudk sxBVcRQtCq32jS3tEH++ snf12/IWt5LFO+2dStf+V878wBt3PTxoxmJ24+HkFh32f+mXvdGRxt40bXjpqDcfgyH4Mi8tgYUBSfw8 zz9eyVYYP2jn45hGjW5b Mx9psFB4Fi93UGaqNQgtwPaWtWD28FZ2mfbdPuLzItNPKMF8ocrH/i2kgU+Pk3k8o1HtFpFhzP9WstLN pIYNf3n2++l18uzmfYDf 6ZdCfFv52t612GLQKOb09PL8KZP1aygnv6KFhnCxQkC539CA1cS8CxJ/QcO/Kq928UIszHNF/HwwQOLU OIe0oUOz7Ivk8hq6ZooN TcsisMFDCCVUjysvWmZLR4Zj6QFX5hdQ/4H9x+wKvMRpKamxr+JN+36+UXbNCro4r0fj2Ob+I6Qw9jtS 40xTH1Rl1jAziTnNfhTi 69mDtqt5jdluJd9wtLEm4yFcrb1/mstg68ks85hf/ynXQssFdpG4yI0lCkNac81zIJyLXU9NmFam0MJg Ox27phuss8ILpEvVqyua wowbNuMQWSV6khnFERMpVi/QPmXfYEJYLkk4nClKKg6x5lkPY1/nkTOKp5pc1pr3T7fUn7DR8/PuTNnZ 86qhzUYOt2ZIgmz8lbJy +fN9/V3ss6XPCdeWM3np/An7x23UzhZSs48VEjZ4Eu1hmJ+Ih8z+blbj+2rkyo72EBL/a7x6Iglw88az /nrJThYlKFS0x0GeIo1n +Z5SmXf/v2+qftHGU9vNnkb/fu6JrWw2KcXcxbU7Dy7O5uQ8vg0+zIVeFqF7A3XdQwmisNlR2jChqbFI yRJFpNxzQCr1esDYunt6 ot3mxwVAvvGZOwfmtFjV46lqh2cHVlLMYqlhVHmYKgEsBRs0Mmg834JzrUz4132f7rCz5BVDl5gEBkjk GFu60ymlWe6Q4cU4n+DB NQMrFe/vtUsbt+11lHRqhaSOtobIXUgOFSEEyJpZX4sbacwJJ5+BVCaGyYZj20lbkraXRCQEBxCmnA1P dwPttZfVccnfdN31dooA 9i3/0pMhySlkKgLy4+PBd4+Xu2eh97DD0e9rehRWEDFFEXT1ULGY3SBQG5+oTBJltj8p2/8PHOWVQGSJ IUiEQCIxWKhUFhQOvlZO G9+CKFbMbATd60eRTRS09bANnlNgVi/z37x/EV+bUfLvW9otqJF+k1mDVjr2BzxNV369ncCzq6wZvPqV 0+ijju24vxyUZU6166ts SIApkYFL9esZ0ZvCZ0qIMGwiXH25cG569U8w8+/evWqX//+J3StEOar2c7jqOypMsfCl8jWfuhL2/fN8 mW/jv9YkCBkZIBL7CEe/ DTI1hxNrnh/NmPgASCdYS0poyGWcNVSpV9fuHmQtBZC/hjjZo1inJk1MHF7gStN/17yAVftMNMS4zIZH LS8t4/PpjVM2bc1GD2+f lJUcIcO+W3RYgDgXJs4iLXv7xbGF/esXh5bF18g4hJpObfgBhxoCnl6/Z/BqNXoE0Ev76WE3q6lIMs57 uPHjhczzcKxMHF+0EPII 8KUHGhec2N4Lg+UTqqe6Cvx7LieHIEoJx/9/xePiBfNUOsvG3O4P9THx4t8nUVyxtIdsjvrX6gQkGdfV Ip4y8wdmp6GQWZmgIfwp /DKViVl4dyGLzMmIglb5+VW85HjMvO+7N26r8qSYYLdwHGlIwuRKfx6V56G5Vs148ehlh+6Z/cz3nzH2 X0mOqlDs23Nxhft23So3 WvVujUAXA+/gtO80Xit3EwD813FYZlncoHok7h154/hT/TA3dAa8+rVr//XkaSCRb6zCMXjZkz6pF5Bw TfuUSOLsHpVkv59jk2ww ErESp7u2DD5pFU0+rd1/AdUvbClA394xDFhXoknj00EAITiggTEUsepBJcpDvlZVAfJK/m65OmqgTsq9 6gZAgtFelBe1KWAM/lt/ iLFOMKkIUL6Jd6/zr4b+PunyMzMTExIrN+gyC5XY33te/ln2TB8Du+LkyIhNYAKF0Ix/uhSZbZAkwE7Q 0+V43e8z04v+Ob1m0k// UCAL6tDZeuh9adE3x25I//mDQD4+vn6+OG8QOEsjcy95o/PGRkZ/EnGDKAQ9a5y+VmEIph5sTT/wsEDb ++iblIWKXBIyEb5La+Eh rTlAXpSUE8KD3rQ6Qj8DnUVGjCLl7S6hpw7PnNc4Jowa4qraLJn3m5uRb0knwjoQNb0YrxWEvjv9Iuyk ffIAODB/wbWCh8td8GTW b7jyNV6aDzZBkhB/f7gH+3RXPlAxEnWSTXF8phkN4IS1fVDhEsSYp1un5jn2d/yD3q5XMPF2C4pxXaDy H11djbH6Wz/bldAhwIAS XDaRIqQz3A5mdu3p0RvW2wefU0rrljehO0S2RT29YxSPXnMDbbq/Pj4+mW49XtS6Wp4v5W/p2ivJlKGR puQQZpgIKIv5kxYMEDAR gRnZxfzVpUyV/uwZpQzptmbKq3DCw4URYQGGKmDIyxvFz7TkmQ+/DKmubaxIeBFu1ag2VoksgkIfQs4E CUe51R2KoKtsuk8+jgq6 e347UTLD9Egbt9toR9TSRg9O73nn7KcitirdlRUbQoOe9+/HyTuLXfxaqm5XlWXX9MoCo/rbSz2BMmDz HUyR1o9ljx3iZ2zmUVot Y9fwG/IhIY8MeNav4vTdKo88Ydl4nBesrRNXdRACCXczK+GCtRtDjH47yGRX9EV11xdT1ieAALRa1Rrc 32aST4XdIPS2WsMNvlw5 +GHceMNRoPVDoWJ+i5wmNx5nUDMl/Ob2Nlna2gj0FR2mv95ciIH8qf1qqoZlr0fAtIkwA0qWdXqWs9n/ 0aEJZ42qh5xq2raRbl9o ka40DBjnm1+gaX4MVc5IXyEjN6yUoiIDORvK8zGnQlcW11DTSEhYf8lV56vLLdjkoHRUvtJtJYPvZecS RmMc22OpgeKyvipS3Gk3 1IURArSDd24D9hnF36mZlwP7GDIXCNC99vbVOvVpZzKwMdGhjPTTZxyeTTq/Vtyhc22LLcjw6Ki8FXlK lJc6uUzsOkXgG0gMulus i18/z94JU3AMKmBK+M4bv/ywLTMCaxRElYAsv1qt1oTCEENdViHW3O5LEc0/9dn+MiRABD/1u9SZEF+q GNSoWLFPn3/9/2FIs9kZ 2cZthAbCk+Ury2EoXcrAmd3j1dxwjhfdU4nq7x+m7NUfrFyr5oNCCbefrUaX0OhDfDA6h8sNPMh5YxUa DuFRAh79SusfkPhKZibI Jib+X104LQjSqeio6tt2q5/+uFAfh3Mq17ls22lLHu3z0vzSTUI/1cg+GArG9+fG1FqPAO/ruM/dEERA tNbnCjqLnqvJPBeATSat 21cenQ6x+vFo27HnnTv4PRf5oMbaBDiPi1bJYeRpwBN/aVIEbSK7Rwkr7cLh44hIvQ3UMxn3VjRjx611 DQ7YoRtBouq4hs65YbD3 3JcHarORi8mUEY93QoD2s7UUOgjBdFCbkVhyl89lvOprabzJYggTJ3PA+zd9NJ2D/adfmJjV09yRjnhh /2lPNuXHR9hKNk7xjh+9 3PBpHI1ZySy0xtcuO4BtXjbQURxr0ff/NsC5MuOVEvUR5kynIXRxh4bPuLdMW5js/L4ib+eza2bv07mY 5/mZH9Av/9L21ukCaCQu 7coKkJIKYEFySoTLf5yO1vBsPQObZLABjg1LCf2dOCvjapHgRof/Dh3GS7pDaJciM6MtOjpjuYKpZiqc gBiVryiHwpB8CpfFxKsX SSVlq5fjdxyoq+wuFIHvYDnAfTmUJGnq84/znoQzdWIY36wpHsrkkHCd/+yaNGzZ8/hXn1mWkkaVy65o nzkqNHFsbWb+Ftrunft1 t1Up/v27F26+JfuPXuYDzN/BB/5SvK7rc780061hb61rkntaf/lZxBD4WiDy5Scarlm3IDcKaVI8Ow5/ qnvO1MAZHITPeNEadsNC NlZUTcrohXSjF5pho6ud1+TYRN7Y5f/1RFu8eDh3Y1OyxbMhLqyZuqv5xzkeSQhll5M+xfkffYRKBSKi DrIQLa49aPp9+8f8f5bJ yaQO6xOsnprF01lVbNUOpMOxyKLvVjiwp/Oyc6+ksFp9qObvd759lRiBgppHCVgWz0xUca0NVCtAyPEi a4FOBpKWyHL56qhJHvbs B1YjWedmel5eknwMw65cLpbSj36KyNswSqgrtknmgwqoovcYBJSjRSkLBecGkWAUZbnxvOkEI3hm70br sJq98EZutQO0bQvqDuq0 7NNpc2hpmEu76th8/Bgs7fst2hanNg2LSRmRIsw/HvF6XIeXS1K8p6n2q923EFDKKby9+fPBw8Z+kHZ5 9c3tzDkXF4PceCRTXZO7 GZ1AJVTudiDYRA8CQF57tdtu7ao+5y5wxE0YF54s2kvJtEZm6fBXtW1l4CuTwbDlq42o7/kDlqlbn9hc i6kOScdbGpxONGZ85FrW rhma0In4CW+oY3iF2cY/9cOqrYioWGTzmT0PfhLMPrU3b+3Xz/e+tZ5IarLaSv/T7xajx1u7Fqlw2wV2 00jlKxjsQADnbCi1GdJA UC66Twv/1Ub/h328Ts5E7XTsSd6h+ZQIObkamR12dvqZQBrXXZIxlpv39615KhV6pN+mc364vTDoLwz4 EmEvlF8cOls/+3U0qGuI +VYUCVrPAa76Hpq0oz7y0gwdE+gn3mNopxXwqlxHp6YogeKjjDJ2Hm27qB7yQCk8o906ql2/S4szVs9+ /UcolN64B2cszK+2Auvu Xy9TJAP2Bn/fCFNi4bfep6xyvKBUEHyKrL0EuFkDWKx2yfj4x22d6u/AkBiYuLkH3/M5UTT1exCiTl4W 4MgKAZv2hQRJOxNqgn// Woy9Axqc0dUjM1i01/f6snWRBVp8q172NLvoOtgRE4+sDN6vBRMU6x9DGMKZEObLXs7BL5EU2819ryIl 7Ls+TNsCVXs1Dk+d/Jvw sFMmXubSqiwyq7E3c4D6+/b+/zf8rgn22lbkdvDLMsG+uitKsHD2Qc9ocDaU4Fhesr+bhIQ8luUqFbwz fbg/IUL+Tnwf+7evXXzZ onESg/F18+KuvNwm6nVW6KsfWJxAzonPMLsKHywDH6/eqfCwzoHQCNn4BSks9AFmHbK3ZAoWXJNNxiT5 7Zt+EvSK5Yh43ocDvugM CBR3Crwe25RANTA/4Efo1iUyk5sAKFg2X29kmKMpgqu+KeMlmoj1xBAn1NUsin9XeLpeRuK96/ggPwRD TPqGhv7ojYY6XlP9tVTW Tq+QjNdW9yqSVFXsWzmfLOI2hgRyufLi1WkcmEtyyREMtREOLiumQ/OxOm0OrN2Zx+pZnLJWubqwF95u 66k1mjAi9nS5lxd0Dgf7 eExf+DSslKxAn1iHuwnvwJZhpY9sEWH7WNvA5oPGUf6dlXj0WkXpyOWLXbvn0SHlStHvEDdLXtlUxBb1 Qxn6kxR9wEwuMQ3n1RJ5 20K7RQ8bxNPnc6/AICnp+hwuznR49KMdLfN/zhZCCMv8ux1s/t9V653dkFI+2UnfSj0G/5XfCvD3laiI BOdVOZfahEhtcl1r84cO bOWrd027aYWy8HJ8isMyhJMui9JEVUqLdig/H9vTeqP0wtTvpSOwr/qMmE02eSQ1C7awaTdRikdIIkBj 9Ir5KBhOoIA7PeLlT59J f820d7t695p6F5k8fEeB2OpN0S6gfriNfmthTTkgKOZjVL72NpeEllk0x41M5y8ZYSkWb6JLWcR4rmyu 6M7yfe7LIPH488mp2PsX cNkIWtOgBRoYOWzXpYo2m4nilAFZpQTYa5TRICrlz1Bsx/wfFy6TUDsUjm+fetW/ct5Rrqh4WBL6e3p1 ugDGxITBy3SPgcrCfrLo nCBKqvmzrzSEaBa7c8projstRewUOc1BUk/nS5gW6r+QA3QhybBxnEEcoL5WtrT1xZcHIHeTi82WkpCk W4mvw8bhoaRHh4JEEtZf s11aKcDGwpwyd821/ybTESOe1cMCrht51BrVwIrKssy7tLkkmNTOc9d7u88APKyzSwHKLsGu60Y0ZGd7 kSkoz7dju6VjO85Tk8h8 +margret+EAh70lbjSxr8ce5V7uDUhsYlKJaxGnRS2d/keoYQTz38MxLd40dO2h1P3+sWMi6zfko8yyktGF+O V5dd3eq4ZpZnW8Zfb3sD u680Nsn0gehyMzjgi991guvea0jj+gtSExM/N1w83jQ75XQu/gR8/pHOSOgbrKAlPvy5SppX5lzf/CoU WvWrlkjFosDAgNMfppW4 O6bIPBtHcDWfEtvV43ywGMlmu4tiJPk7Th0Uj84gc/15xOLR97UpUVNRXxQ25rd/881m9BYWg8lg6oep 2zadGDf/uVLl5k+XQEAs TGx58+TRTQOtm84V7QXYwJ9WLpa0+5jFJbfqAr5YWQhdwoGSaID3Tl1Hl6ad0u16KJp9/9ISUlRKpUMw 5crYeVNiDVMAD7fDugh7 LHBWWi3bVTM7/Pkc9EiKq2VvCp9X/v5s+x1RUz5U+l9Q2eFqGf8q4yZTqYJkYqwvU9/f/p05bQIz0qy4 etF1dPDplbWRWWmFpPgM sTCqftG5598m+6cOVqNtk/sbvYp8E8e1EafoSrpULS+OGCqyexTmtiNpheml4KnNGOT0rdFpUaBZA24P K5S+dzYFqegOp3Sfy1+T bxAKKBIUqVSRT9+bNPtisTPqo4CcKKiPPfj5k1r/AgtuIRUa7wfiu+7ju/FERDsU55XyUAQIAuG9w78R k8hlslxtxZtRHR5WPr7N uVhgjBhdUmvMQJze9I/0r1y29XCHlYvFnFG4iuU67+jp6ae7ri39Mwv2PMGdJvycRCNeh5zAezaThcem Gh0aMWSPWIWAwfQTB7Df fPbf8bvO9MhqG8rDqknvDof59zyaia29IyNiJpW5x+SMKOWnDrpeP1wT+ZrIifLhBPOfeiWkX83GpGqv HKbtlM9kOiBk0nk8uzaZ yd5XhFBABcHoXffzy0PvaTmf+bkTZ6OL7fo0YRhIW7wGUQCfz0RqtNpWNLWIRB27fc4659kmydMDiy/7 G2ci73mW/j5+cSSj3wtt /PUaD4rF/J9OwWe4+mCv4PjdEX620+fP3/52R2g16c4bWz7DsSCnS973/RMu1r7h9l4Hh8PxzA1xrxm6 BiLY1bMaiOm3yk4uVRUX s6d/oJPp5iZYOnWO+CRBkByXqTlYKtl0pDI+/ehWtXWEQDMDa590syIV7dEFbWu4M4+ukU0K2U2cWChd kDibt477fblk9d+3L2bX 22a7yRBOXVNyhYFGmCkJq5ft/ilfAiJFVwWAkeCC7oXU1HCOB1wRw0ytYGMbIsSLa+/Sg9sUrTktKiu3 qKpv3TvgJKwo4gfkxf9Z WjeAOyHFhAljH7neitj/+j966tljw1ma7/AOu9XWUUQ1o7lnQMRZu5bibzuHMPOU/tQym9lJZr5DWsTL N7FlAWYfZ/+/saOO7048 LFw2mcAXc+2OR4j6z74s+/Q73tb8Jtqr9cdWLAmzjhrE5XFN4+u+YQKgVkES3Xiuzllu8r5XBpLyZtMe KievzMpRkNSjJIVj7B4S WtI6J54Gea12JE4r2lgXkG74XU9c+2zfGtEFVJcEGGKNug4Mo7LRwNVkmBpiW//2oSuw7SIhAQAYEXt8 y8mmvHeN5KU1If408q10 6DhOB8J99rLhhCrZW9FHDV0QYi6a74yvhcOVMe8/1xXn0mr7ED9kwm0bKQrhfpCJrNvB4+zFFmKdoD6r xnSpyysz0weRHYU/4ED/ 6mPjLAs++D+b4dCl6V7twDWqTpUGTWTRUN8BKpqRUG54xUo82ZSPzKJQerj3a4J1mavbbzvw5Hmf4My2 6QvM3tEcyJvjErpXm9MT ZIxR52nTjq67sBMWNRfaBhtgZm6ZjFz3oa/2vGb2WALr8L6ieSv9NuW80CBOHzpdLdqCTqoDAkJ45wKO MKVEB9/6ZYGn4Rh4+Agk 8oQQkajQa/Grc9kbFCCOy7getaHzVpc1xdsnx1CsLiC5+ieX8etqRiApUbuycA9+qsIo5OdpIwzMEp65 oWLd+4mDiaMLcLE9xrEe 3EuZkDgphd741QSGon/ZEYFESlaoEZP6RG5BYdEy7HimLsOdyd7pFzj+cJgMJh/A//Y+ZyLj9G7mkWWr mAwpQassDAYTKkBKywMB tRhwGwDg4OGBzBTidJifOlmzGZGACqEXerGPfVqgFgUb1UZKbCNcxRcvSwyfPMNAIuPBxkAQfAkfSaKk 8GUGrDCwmAwpQassDAYT PuNOljXKpBctGcEf1WUFsKPtxHoaGbdqTJMREgDBwiNEwBxvHzLh6GCRvBE+fu2hJpJpMWmOl/++OOnz kdm9e1bGpi7e96b8+joK BKJ+lmkdyVRky6dOi/u1x98kKCK9kb0P7tTdvWyVlH8Nal74ym3kil406rh0g8tBy8VYXNf739PzjLPK gIbDdWn5DGP9427cqgdp 2WDMJ5pk9/V6NNf8zmnThaMy49TU2+0ytGoBAoXILdYvrpq8i7cMoEbisk/ZYxf59Nazwf+qR4+fPj/z OjSpcuuXbs+yx6Ncv7oV WKEaZe/3y744pxd//3tfF7VWRQMICXFEGeoN4etylCoVI7TrTlKJY0kUgYCX3MR5iEpS2WHi2860q/+o A2rfmYJd260Ksvn3wPHS E+ePCkk/eXjffHLuq0aROfIvZSOtMl6dIbQVdCvYT7yIn8DTLTF5rCOn7nUoq6LX6oOrLdUaoIIu9uEL Bg449Rcs8Q1/ZkzVSqV5 p3Om5NNDHReej9/6WxEd81v+GH4T5RE/msQTRq2FZCF2JTrRotw+nWpgLGF2unmOCEYoGRajrZ91cRtV SW+YwZQIWb61tY7bcq17 15vZ8OjSV5fWl0htmwCTxOckURLY08dDhrCkagr38cAx0z+0bGPxmbiXcnAep73+tmt04LGqeqyQwnXI a6mXFKO6Kem1Od6RGtaC v/36017E2G//v179+2zFBOeGsd513hFvPjC90ixYnl0crJixKs0+N5s3av9wltNwMN/hLcJuRRx1wB53 cACRllG19VUBn+7bt26A fMteGHsE13BFWeEUZlZbjd2zH/l2LYOPBFv9kTCXyihZ6wJiYyvzaPCxExQo2n1tQoeQa3Jmv5Ekk0k6 zjTNOMFk9pzWfN072/z2 /lEnGcw13o59zk/HpgfF3t337VXYtt/GYxu2cd7Q/Pbz58/TjC2ourdPV6nuHpUdQLpsElqrHPNwuW87 RbnCsoznCz4pkOGDfqr7 AShUXnhJWzLZHcKvGCQWKcHSCtiqvrZZi6wIRGek1WXoAim/UqsqKRqCZXAoRvEcxMh8us6obAVKRUTY FlZWQAwc+bMpKSkwhWWB CfxSbEX2WCA28IoW5evN3Sq1KmcGT53KXX1Zq08zNc32cSNlbLlh2tq4naIXPpSLKGPvqt+39Q1orb3k 0xxUWYf4HvqTfTvAqAwr PztjuHDh/SyFJpSYARg7wpZ0LcMtcUCq1qDcKYFTSf1ndBtMFDUQG2wybUeMJnTyJ68Tu0c/Rsx0iJjM 1zURjSXF955ibAerwrhs NJB7/aCFwQsPyiS5Wn7YuljwQe4oXps1kLujBxGux5vUBq5+/zwT8OiYqYw5ChbfQGuGEYIYApmBe0Fp o3Sj0ZA41MRjgIjiSWh8 43pkbWpGLMW7YB4NLGXh6EzfvGd2d+da8ft3s2jIoKBsUbAqqSmkm//cfciVUsLFCRhDw1ZfZl1jq5Tt Tt/++82UJrLNgvN9hYZB 0ECHuEQDexPK930y92Ws0BsGRpbyViyl7v2WaQmqT7/v/aR1tF865eI1N+T9eBBb2Cick44614NEl0j5 TuusX1QQJITMd8FXOcNE Fl+alvuTxYOMPnLXpssCxNez1aNYV1W5GOnf3LPtZiUgLMAM3eR7+FNs69w7o00glHvattj12227lAXk QAAc+bMsThYUAtLIpFYH SusXr26+CxbrneGaoCvLzODqvAgAp4XIYx5mweotsNcBlYtEM2udqdGK5bnQ7wxjpdCSN5ilmD2ICub0 Llz+YtUoUKF/NE73KCgR HGH76YpWvBKX6rQeE1l1HPlZ6Bhl9t35PhFVpQd5DaeQuRPaTlYpC/e3N2TGqyBaLmZHo9b4mk/+uqrn JycQhJ5+fJlMbNDCFnkC IEwnnYBXy38Ls2mvxLi3D0GfVIm1hmZrCjxCialj8+CVsDX7jg6+vqacjRhNYUaNWoAAG8+G7ZiHqeJh XNWDqUtu5EaclAIqSnx1 ECmCXEe7yc302WrH+9loFUUh138QPrTG/9r2yHjK4320192v+/bTSy1WKHNvtAiea2KEBMSXAQndprMC HMBsv1ulPdhJq790irdj Rj9IF7zYr9kDmx6CrepEoFUpR957PuuoFqnpJqgD59qIJ0YLgCrRTDmw818r5AtviOSUjNw891/++23c fSJSCgNYYKxOjjoHD1x1 rwJGmauG35HM0AxQOKx3Tv5y+s7ec2z6vbQk4YiMi21AcCu+dBp8Y8R7ncXULk3QVZ3ssJH9+Gz4RgmG bECpTv3PsJZKrPTHy85m yOqUhbb7UAwByy6qgq8SqF28G/2vzavFMKpvCtq0wccvKRO0ptoKZfBJ68mPPxnWEG3U8V0NZLgMJCvy dB4WTdmqR/SokuIEKpfv z2R6zJUe3qSCXfg+s9H4W+XmSKrIhAMWq3yxdZCtxm2Jw9n4uQq7xc+abEjs3IOMBGYuo3r1o3z3Phz9 rb90sUuhpB/ERQUZApat MwJN8r7o4p+49atW/sKHMl3iZvRp5MRcvpeKgGBGuAIDuG8nUaA23/Tnv9Znznr4A1FsldfPlZ2k1lQ/ Yhiav8LgE11i+ePWJASx 2lkrVyu2ulNuURW7Kg2uhFj600SkZbDY5a4hCOhPz9CAsEw6dZ28nuGVsf4rk0lOlF2gdf7rrBACRPTd /tqg2i076+/FYlEPj4+j k1D8grW21ctO2+syc/z58+vXLlichMHgJ9++ded3bl7hif+/v3a179hvCx9CsvCywq5+/cqHsMuZG4bY ZiRxUrxw4J5Ep8dpSu8i uvzyeMnUi4s1dsMcCGVM1be0My2oLK/mVXTsJ811s1+/tLjaaPjLgulQk1qrdZsuyLUMe4y6l14jmRRX M7FUkDRoRibDGxofwGsN sywHIUBMxOWsVt4D86apwZTfwEtuMXm2co//vrr/YOffZ4JvqSd7zkF6RpmKnHLFxOffmfsqUHk7vfrH kLCSowaGSDO2IcGVA0Vx CLuC33hyc7aCISBdu86ZTGEQr7bv30naJcWwEdjZ+lHxUoHIp12lOSa3C/NwwSmPub8IbNTbYuUTpnBg FPahWbKt2FWRbCXmbHdz XqxoKMBMZsNCuvDFaSpuSzEt4RBWeBMbzAqaCb/A55RS/y4q1DXXWRTNKiYDxEpWvGA></span>
</div>
<strong>Patient Name</strong>: <span class=clinicalNoteMacroWysiwyg id=[id number] macroname=PatientName spantype="macro title=#PatientName>ISAIAH MACIEL</span>
<strong>MRN</strong>: <span class=clinicalNoteMacroWysiwyg id=[id number] macroname=PatientMRN spantype=macro title=#PatientMRN&qu ot;>[id number]</span>
<strong>Date Of </strong>: <span class=&quo t;clinicalNoteMacrTaysestefania id=[id number] macroname=PatientDateOf spantype=macro title=#PatientDateOfBirth>1985</span& gt;
<strong>Today's Provider: </strong><span class=&q uot;clinicalNoteMacroWysiwyg id=[id number] macroname=MyName&quot ; spantype=macro title=#MyName>Wiliam CHOUDHURY</span>
<strong>Date of Service: </strong><span class=clinicalNoteMacrMaraiwsafia id=[id number] macroname=EffectiveDate spantype="macro title=#EffectiveDate>06/18/2025</span>
<strong>Attending Physician: </strong><span class=clinicalNoteMacrBrenardo" id=[id number] macroname=AttendingPhysician spantype=macro title=#AttendingPhysician>Wiliam Park (Medical Oncology)</span>&lt [...] which might be better tolerated</li></ol>
<span style=font-size:12px><span style=font-family:[place],Helvetica,sans-serif></span></span>
<span class=clinicalNoteSectionVisible id=[id number] internalbreaksection=false originalname=Med Onc Advanced Care Planning recognizeconcepts=true spantype=section suppressempty="false>Advanced Care Planning</span>
Not discussed at this visit.
<span class=clinicalNoteSectionVisible id=[id number] physician/internist albreaksection=false originalname=Pain Plan This Visit recognizeconcepts=&qu ot;true spantype=section suppressempty=false>Pain Scale on Today's Visit</span>
<span class=clinicalNoteMacroWysiwyg id=[id number] macroname=PatientPainScale parameters=LookBackDays:0,ValueIfN ull:Not recorded on today spantype=macro title=#PatientPainScale(LookBackDay s:0,ValueIfNull:Not recorded on today's visit)>0</span>
<span class=& quot;clinicalNoteSectionVisible id=[id number] internalbreaksection=false originalname=Pain Plan This Visit recognizeconcepts=true spantype=section suppressempty=false>Pain Plan on Today's Visit</span>
<span class=clinicalNotStra[facility] for [facility] Surgeryysiw id=[id number]" macroname=PatientPainCarePlan parameters=LookBackDays:0,ShowComments:Yes,ValueIfNull:No pain plan indicated for today spantype=macro title=#PatientPainC arePlan(LookBackDays:0,ShowComments:Yes,ValueIfNull:No pain plan indicated for today's visit)">No pain plan indicated for today's visit</span>
<span class=clinicalNoteSectionVisible id=[id number] internalbreaksection=false" originalname=Smoking Status recognizeconcepts=true spantype=section suppressempty=false>Smoking Status</span>
<span [facility]="clinicalNotSt[facility]oWysiwyg id=[id number] macroname=PatientSmokingStatus parameters=ValueIfNull:Not recorded spantype=macro title=&quo t;#PatientSmokingStatus(ValueIfNull:Not recorded)>Smoking Tobacco : Never smoker; Smokeless Tobacco : none found; Vaping : none found</span>
<hr><span class=clinicalNoteSectionVisible id=[id number] internalbreaksection=false originalname=Depression recognizeconcepts=true spantype=section suppressempty=false>Depression Screening Tool Status</span>
<span [facility]=clinicalNot[facility] CentercroWysiwyg id=[id number] macroname="DepressionStatus parameters=ValueIfNull:Not screened on today spantype=macro title=#DepressionStatus(ValueIfNull:Not screened on today's visit.)>Was screened; Outcome positive: No; Screening Date: 06/18/2025; Screening Tool: MD-PHQ2; Total depression score: 0</span>

<span class=clinicalNoteSectionVisibl e id=[id number] internalbreaksection=false originalname =History of Present Illness recognizeconcepts=true spantype=section" suppressempty=false>History of Present Illness</span>
<span style=font- size:12px><span style=font-family:[place],Helvetica,sans-serif><ol> <li>Patient reported that she has been anemic [...] has heavy bleeding. She has consulted with marine fitter in the past, however unable totolerate oral [...]
</li> <li>GERD
</li> <li>IPMN
</li></ol>
<span style=font-size:12px><span style=font-family:[place],Helvetica,sans-serif></span></span>
<span class=clinicalNoteSectionVisible id=[id number] internalbreaksection=false originalname=Medications recognizeconcepts=true spantype=section [...] History</span>
{ }

<span style=font- size:12px><span style=f ont-family:[place],Helvetica,sans-serif></span></span>
<span class=&q uot;clinicalNoteSectionVisible id=[id number] internalbreaksection="false originalname=Social History recognizeconcepts=true spantype="section suppressempty=false>Social History</span>
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

<span style=font-size:12px><span style=font-family:[place],Helvetica,sans-serif></span></span><span cl ass=clinicalNoteSectionVisible id=[id number] internalbreaksec tion=false originalname=Vital Signs [...] suppressempty=false>Performance Status ECOG or Karnofsky</span>
ECOG: <span class=clinicalNotCheviamattioWysiwyg id=&quot ;[id number] macroname=ECOGStatus parameters=ValueIfNull:Not santhosh rded spantype=macro [...] originalname=Genetics/Molecular/Biomarkers recognizeconcepts=true span type=section suppressempty=false>Genetics/Molecular/Biomarkers</span&g t;
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
<span class=clinicalNoteSectionInvisible id=[id number] internalbreaksection=false originalname=Additional Labs, Imaging and Other Studies" recognizeconcepts=true spantype=section suppressempty=true>Additional Labs, Imaging, and Other Studies</span>

<span class= clinicalNoteSectionVisible id=[id number] internalbreaksection= false originalname=Laboratory Results recognizeconcepts=true spantype= section suppressempty=false>Lab Results</span>
<span cl ass=clinicalNotUniversity [facility] CentercroWysiwyg id=[id number] macroname=Recen tLabResultsTable parameters=OptionalFlowsheetCategory:CBC,Label:CBC spantype="macro [...]
<span class=clinicalNoteMacroWysiwyg id=[id number] mac roname=RecentLabResultsTable parameters=OptionalFlowsheetCategory:Chemistries,Label:Chemistries spantype=macro title=#RecentLabResultsTable(OptionalL[facility] ategory:Chemistries,Label:Chemistries)>Chemistries<table border=1 style=&quo t;width:100%> <tbody> <tr> [...]
</td> <td>
</td> <td>113.6</td> </tr> </tbody></table></span>
<span [facility]=clinicalNoteMacroWysburgess [facility] id=[id number] macroname =RecentLabResultsTable parameters=OptionalFlowsheetCategory:Tumor Markers,Label:Tumor Markers spantype=macro title=#RecentLabResultsTable(OptionalFlowsheetCategory:Tumor Markers,Label:Tumor Markers)></span>
<span class=clinicalNoteMacroWysburgess health center id=[id number] macroname=RecentLabResultsTable" parameters=OptionalFlowsheetCategory:Immunochemistries spantype=macro title=#RecentLabResultsTable(OptionalFlowsheetCategory:Immunochemistries)>&nbs p; </span>
<span class=clinicalNoteMacrysburgess health center id=&qu ot;macro_[id number] macroname=RecentLabResultsTable parameters=Optiona lFlowsheetCategory:AnemiaLabs [...] style=text-align:center><span class=clinicalNoteMacroWysiwyg id=[id number] macroname=&quo t;PracticeLetterhead spantype=macro title=#PracticeLetterhead><img src=data:image/png;base64,fOIYNq3SQntDNARZGSmQXwFLVCAYVRZnUSHOZLI1Sy+UAAAACXBIW EHVFY4HLAUWd WKKDu5qTJREbxcMHATIZDl1E78sItPoi0YfEhgtzWZMEKMHLE12dXUwu1U3HWOhX3dtPMFkg54nGSseN TPIIJ5dAVWHKSjoLPkhA OP7LcJqlvafWKHdUk0aVRe9dF3gvRO7KWR6qNhdgie4LHGtWL7qCQugilzcQBHcIwWvcFt9cNU3rz6xK KEtTbMpCA9RTRRssgAtA t8eNAJhZNJpZnyzXHU9JKT6EBF8EOExUTDkVlV2HdIdRGGhLyDvYiWaUNPoKXLxGARcTsN5ezKyXtSKT bX4cJszneraAKN7Lmw7n HQ8Nx59b4fzlsYdx3WcMtF6XNnpNCDwWyXqzzGtAEY2qyIacF2unvWxRbN5irExPhZkv6QswHA1iN2vQ MRoQduoDc43mO7pHmV0t Kptwqw1mWB6Gds8vRH8Fs8tio0hQB3jWJ6se82zjHNdCeGrBN5uZUbqaP3bIeTxZIIwqGTbVt8doHVhu V9cqjmbTVAeFAkxnVZhe LWsKL2jDsBbnV7bpbJ8hZwiwO0nlA7vZMQunBKdCx6iaaStQILfXgJvF95fI0Vpw8Hne4gfgU6uIpGxB qG9qVwgmli6fVLKWE4xq PK7yNnaP70sMgZge1WcOtXhbV12FMHfEG8nK01aNzPxuD0bwmZ1z3ZTclS1Bzi2pXP3Fb5fiy2oBB4eV E2zh73lxDThJaZrQW4sG VelKN7TBMPuhWDiHMD3AI79PwFphL1yEaMfUSN3y0LXi63zVLFNLM4bQINGvG15u3Ulg4GsEeZzLLPsZ BQlgK26s7TpGJQveP5rC iFkXJW6OASsyCC8CyHiWeZfLMHaKqeLIXZ9Lgn1HxQjSWC2IPYdFZhmrYqJa6ZwVfyJGVAwJRCuCHYtA JCcPHW6WNAwMhGlUJO3Y aVzDqY4vEA2HLG7GHVtlHOIYVUuOWMaGSEjCLTaLDS5CHMmHhCvVAH7XnCeEqBiXhmjq6YpUTO4TkoeD OebO7HpIjRgpCwtbY2na E5iQmYlyE1iRS9cSJ5cOdWrsS6oLU23MJ1jnQUqY7JBDJ6hdV9rAskrZFe4TUVjWgGvSJ8hEYAcDSU9I imlYRe6WI21YeV3STYoY aUnVDKoISgbkJ6AAaBrR9OmLP21BOB5QqzyfY0tlTG1WULxKtBjYJEwHsirSp55JBQ5LQg3TbveRIOkK cHhZ1U7ZQRtFgF0dDGRX HcOdsgmxO1tdZFcG8BiNW59DMC4FiaueZ5uwSE9ROLpCvYlJQXmHefiPz59KJL0JIy6DtjwAQAhTdBbD 3D1FFTmHz9cYLIkw3Zzy 8otcHoWv1X3wWAsyAGlN5MwiE7jem4tTHBiYxxROLw+UKpuKKM7hPq+mN5xBjGcUCs7RoU9R9N4DJRfT PSpAHA1IGAgYqtIMFA2S pRKIlQyLIwhpcIhOzqkFtC2L6VjKneLNHk+HZmfwVbaaM0cpX1cNgViN9UlSA05OQ7aXMK5z5UnDdF4y X1sDL30GOrqvF6lyM1xX HJkZjpTZXE+AGplFMD9cWwmc2NBseS8WAK4hW3dWCSjsiMrbLEyKoZjqBU4lRzqjfU6TD4nEUbTXFB2k JWjkSpeLmiuUeOnTEQ6T OS5QEFpCIRwAW12BGh7GKQyRMqnVVYhAKU8JaZlq5HHvqW8m4mizz3oAoUtZl7aAH1oQ6MaXAibVSbjF L4aMljuFIMzo7IKklP1z 47nwEzymqLAI2OgnL7kLQXoCiGpFAlpiC6gjK3jXZCbXbYlUF5zP0ikvW6oqYboUq6uRR0hYSR6Q8OjG fZ4Y9vxaB5SOzzwd3Rbp nk+NDqcthJoOaZae4DmsWA4kP8tPiX8P4IzDjxYBQB+RXnhkJu9qPDiGPLeJxA5M2sbIYRdLRTpYT0aY SJyIj8+xoE1WSQWXpTVB EFUeJztnXVgFEcXwN/K+nW5aIX8FUIkyhMQCj/wNNSwzDldZZIlJnaglx3FLQwuCOMdCNtrF8qf/HZ3v b6RbkbkRtGSqdE/uz92d 97Izu6+yInwTlFiZDDeHAqeDXPicFb4DEkGYmKqkUNzYJlGnLSScPAaVKbuWHcqTYPUvnZOF6EVsSogj cMaVNCLwLOuQAgflM3uV mD+N2BUbFr/fpqHhIoE1jARmuUMu8fJRP7ljd18CDxrjDLOo/xdoP8tVP0BTwGh2djKEw5b8bh0PNBaZ PDJWbBGyaRmhhNSxe7a/ tAaVbRoTHlEIHY6hSyP79i4k+kclMeZX6R1YBa1UrHQ5oPQzd8DPFDxGKGPyXlFzHrA8ynNTwklXdt1v SPNIuzu0lBWGTpwOb3C2 0HPHl22H6WHufoIeg3o60ynVcYkccUL4mNORPISGt6JGxSkHDkDuQNTl+LEEumob7+Z+eNQTT0uSAyCU hoBx8Nr+uXuW6Vug2AFs 3zd+8ef/DmN5SgGoZNtykULEUAsGQYTIFEerkh69/oLf/5BkMSEiRPH//MQwMIwE7hYOqcudjx+9bpXj +6yfNbeBh7q91Q5BxOH3 9YCOVELaFexKGo6vQyGBBg4hnK4kY69wb1NptG0R7KMN/PqxBzc12//V52jFEeIpE8J8gqCjzRxyreHW FRgj9uuez01ikxRJm015 qS/v/5lKVlqjhAMQWpcKNZmRC4Zbl3lBHs0omZpmTuhvw6npsNdiU+/v7//vVWzrq3aXL+48+oTq2nua 7HLxpa0lYwmS+zetnvJn EaNm/ewuYtdMeHFtuwhLjoAUTJbd7rDwX5MWcE4/AGTEr8C+u6P96CEFdAzQtzNw0QJk8slldV8MzAZC TAYDAYDQRAkSRIAHMdxC Al2WRaYSstHIi4XL7aIM07sRCKy1bRMl/awuWAfTsyfjN6KGgf2qHQbqec+mmpG9HlXIWyRRAIiBTiyI O4QRdMZUsSSTwvlX1GIj If2n+3EMf9+uSnM1ywwm21moGAuko3Pz4Ue3TfOticIb6Aq09V/rrYtCh4cLMprZKfokFz5/6jvgk9Nt Sqc9tEu+4VmfxIDZ9nmR pOkKYNWm/+JCflAGX7uxl32/+W0O2hRnd6OTPO8EUmwYhHdw06Ou4V5isBMXoJPipp4+YlFHe45iynzP jlbUvQNQKIhOke5Acd4i buXSIVg/p0lrQJ2K2wkn2578kOCDtpZAXaBJx8narp1wg94xdWIdKtsSGOmMDMZD1MwR7tH7OdfxLgUv OnmHZWQhTUONgCjC4llr 9YSeZyi1zS3mOWpVcy9fdIo6HB3v289woLO9WguuLf5nVo32OJ8dj00u+Fu6TEvs/9+NaA32ps27y531 t8Jp1KaqISuw0/fth1/e Jo2iJ28qPaqDYoDFltnMSiO+/l2xBn4wtmmd3qJhfAHZoryiaxTmDkO2kwcgrX6UDzgmPKMBIs1eLClG qKYnlkiyFKEcJFi5QdXP +GP+o4e6+tx0aKESrygrMnQfoX2lJ9mIh6Cizq76opAfjtJr6vB0Fn0xxCm5Q9vLb6miAtVxfMn7K50m jgUW2TGJFAMvdhkXHIp9 XzLeFUoW+7SxYsFicXHx/y7tOal1SucBSakNo3jHAz98fzV5oqXivtIYapVGobi59GmufwsIGMjTodwI G4ZiUCvHUy598HDZIvua 57Z1PEdXtE5aiGAy1y1o2Kp1io6XljE+W+AFRYGIYS+GTmqnI+uz9rezL7Mup+M6PzXDlRA0HKArxtPf S6ZHkJ5kKkTf5+nt5u9Q 6zuyC8pl6KXqWObQyzo753eH+nBcvudHpLNmzG32QisXe8nCWlprVxK+a+Ur6hTYDOsQhe7grdLdsXoI w820L3DrOPnXXourJUjg x4xbH9Ghc9bBEiLk7hYLRBSJaLYjHs0JQPtFiBMcWs077+HRz9+OJERTz2zB4FZ0px5KfTkRMYd3V2V4 75GPibP6V11G3LDXXYQM rLILcA74ZFZS55lvrnS8biQbvuNkRCtPhTow07gbe1kutuJfO18AqB8GziCam2Uhm6lNzWd7z2gs9fyM Y9qGZQ42myNi8jCXsg3K uzqteKfFOY/MNNPHWn75Hatf75uh73AfONZgH2zROvR1oihM/4gvV4/z67cAJOJIb4Ue1KlF+9Iq1FH/ 4U83WPiHMLp1xqKGDlfm 783r1/nj1i/DNSIYDmKeQhtNWLIwZDv5ZNnb6Ayd31AlS/R/MLBCgsDqSmpDMPUq1+rWSvf3Zl28pPlE irUzkYIUxl7h9xB+/Vfu CmIzji5g9x4IqWIdHpuAzwZYb6ESAPpZf2o2AQ9/vnxj92bV9+8BBVMQbU2nWKxtOIWn2sIStx3evMDE dEFvS6u8FU5EIFmEMA06 DNgLNoMyfjJaATNWGthVx63Jj6+/mGt1rUVexr1ihwbuVMfta8cl58RkJ1QEo8+4Tiz115USzLswjrRU KFGI+K9ZXRAZSXvPiBCn PsSZCzi5EMJb0gVKcq3l3c9hOl6bFjaNAYppVOMneu6fp97JnsmCc1aje3dzxd6rJfnFEzsmMehTprLs z9xfWD+vWCFhQGKokiSt HdwBACTHzFB/GAcRvIJ5nw+liKPD2piyz0XUyonvDgIavOMVNywVNyI6EPu0dTE5mRQlyMoeftY5ADHB ARAAAGERqPRaNSqPGWeU qmFLQX8ziRgXNaZrHPKuljAooHD6t6Q9zp+1FfGWGl8aLUfdzIt5OVyiXmka3yJqZDxVpvBuG/wRYMVF uf9CnzkCliIjQFsw9RwD 75y+yZoh9xuRc1yMHlldC5Ctk9h6lScQtpVZVc4GffvdThPpuykztErLkLyXrGBMRmmkfr0hvf31gsD7 6kmEKLSK4Spad4UuEthC +4/nEngPvas2Mr6n25gWnho3pySGAHOjVXHsGkLVNJJmERj/UX3pEn9uvNKKxumKZNAc8zPMB2AIEsaW 0+lMc4k9T6ml4Fsmiivv 8PGje/rfKyrrLFll6eTWrnbzVakx/AIKl/Bf+K9vDCkXHLyTCBV05s2B6BjjX72b/y5e+A4Ye8eU+rnI 16yniESMP1j3r631MmAe zIXZDISlleoGvQn3jmc3wx87VNfz5zvOlfQIgW0jIGA2seZEEMJtPRhzluHtCyGB50+vhzLpqalxyckb t2y5fD+/S/jXpbxKtOle /ujUv1cFAos7DsvS0pGnckiuGiMLQph0ik9TR4/KC1OD8pF3/GPHPsPqUOLQTw2ZHAD888iRLx62dVhK 5bCfcuWdDtXrsFXunW/U z36/O9yxa41033/f/ZsyJmzi+cQT410xax11JvUQv1a1CvPaHaRznuS7DfiRqb/rsY3FQUNKY+io8t6+ qAi3tQybHouwreD6cbjk 02F4eay6G7++rpHU6oU8wU6VYPXVF8UxII8tg8XRqEAwXHBtKjK/ihIQepfZ4p+pz3FGLr32VIajfNvL gpcHZymTZuBEGIRQghl5 IaZDKkaq8wcY3i3ZiqrQh8ml/cr+/q53GWNSNo/OkyAeJJy23/QLQ9uQ5J3ieTJGjz764UMTgbOC7iAL LSmLEQuU02GqEFlpL7oT vu5i+clezwu4tlPy3uX4gTJ3u3BeohPEE9DybcqSWmWDbb6tHzvh7PiaoyW8+kxiwPKbbZBMiY3Jcp38 tCl8+5ln1Ht8IVq9qHNF D7LA6oztx2fAW3DWFDNKcNbGZILldvRTiYaWCUqhCxdSy4aeQlNgm39qsdlFMzQHHIQwZYgTbhAEX6FF /peIGogt4QAt1vEwl5Y4 RvoIbq6B44t5z7lQ/QyKKWQzyHfJhw6UPe71VtZmoePdZvc9zv7f1Ev3zhWrRlMEhdJay3qEql0dWZ5T z755ttIwh10yHwAgIw4o ZkvFjxI/OVy/466ve68cZqhdkdhIm3OhcxDX5to915HhZwpHYZ/S4VnGVItnik3pg3lyvOKS/62fauLm 1vS77eNb/0NRtbAwuxFC kiT332aIVmAA7gHIsxya0X3U0MJGU9yKt9Bi5cS4Jc8szO619pXc5qPSEAczq6qDAjZsiDrsC+UWzdvD v2yDZz82fxn+unO1wzW5 y3zKdjzN3v5FYPLLDGl/mJeyNBYZaSSv0q4a8vxoJrIp6cwLWFxc1G+6p3Nk8TMFN0Nvanjl9HbuUsm6 SiyFUAC+76T7KBNoJRbH fjeQRJnPvqIWqsV4SzXj7zlYSE3jcUpJFTXCqCemC+FyEhfj2qRbefCywzgb+6XgqjTGJo4Iiaw+NbV0 OiEy9xMyPKH/wsEZPyrV 4ic6AU9nxqFhQ3NJE8kEpUj0T//KBI2tmOLVwbrsvwmgHkfj5OmVoxNSHOjQYYvcDrCgOPMNZr7RuFkl Keq15L8qS3KDuLXu7dEm d+4paLmYsB3rExtheZiZ9pHfHOB1IbLLaJeMwPVp3OEj3Di7mlneubKLVjAG9Zu4MNnAIiIWlr2C4OIB 01Obt2+F2uYvHJ4Eu0dA /qxxANTC6lq477pWTk2vVrDpHcnXZGXMkUM1Mm4Jb0+IoC2OdxYm6ORmVPx23s5Z0rv5uy01b7XHl526 4RBOqigo3UZ9ibRxb+Xv 0y2AnX54fK+R7EfJIsFQGP6QliebbUtxfGcO+0ZWWsnfTcUSNNqyw3+Hmv9YRBTIMx6HqY21u/3BK39d TfDCtcAhgL22VJMxiUz8 kcybhDAXAyIup8A8uHIv52Tu3WLKoZoDcV8VRPkpN3bhTrJ3Jgi4DYuMvfcvI9c0iJxY+hqc6EelaJ80 cgCBmtZz6vqYUbudET7+ 3pd+8fVcDjkj25TRUwlhmKKNs3LvFjJY5iOBZVnt23exZKmXs3HFZLBgWUCZ/Pvrz2PPieYRiKkPis5x e/PfMSXnzz8zy3Ua7Fqq H5BUXjgjSP/5LEYsfIZLe01oGYiNnF7sDznu+LwfSLTdJ0cpHC45avT4+mh7FXzruUvqLjGVfX3j2aWr eQUxt3fx/b0QN+NzmMZQ iyR/DIgJiRn0IUneqgScMWxDqkR1A2qou15xnXTgg9QuygUpjg1TaKQbrx3X7UASs6Gv025T/9UhDO9j +8+guQNIK5wUBnVBylB9 37VhdWO25cylaGgeZYYsXmXTvc2p6cQVwHFO/if78XSccjIx78h0l3uiSNpgLgsWAIeMiCa3zCfTMhBI hEiaLEILZyvCLvuvHbJr apeLzFEoSBJibwMkfHMeqCge3jdXsdm8Qficw9kT96dvOxj4sWY2rGkbTeJTr2q1HlJT0DKBvQuUyDPQ y4gqObJsCU3Pj9SiQYIq 4U8spQ4m4fduFjw0f/7Lii5UwGf2ImAHTZSvyEECQ4s+wZtJRecwrbYzwnVNzIorD9Qwhl3rMPzJgasD EuFVCPeIGMWc6SUaSdF9 30aDHTyA1TgF9ziLL2BjTK+IWYYpL7zKrirutlYMyAeLfkFDZGmb7pqnDlGGKxBsjRkzc8sTEKBP8I6Q h07W5AQ/yz6q/G2qKnrt YF1GxwpRyhQ9hO0mJsDqwTO91j9/0T9l5A4roZGHOEznB7M5dC+WbLLGDZiKSGwMZZePTwho8OSWbqQ3 1HKKif32kSEzShpBeIAZ ObUkwZ2hv0olzgF9W0pxpirDFBVAPMEbbC9Co2MUtMTWA8RVSYREUuzXR9YwPfQsmI4HZf4F1pd1iScj xdITEc3YZVSlRzYRZWGu 4Bs1Bxs6YlLajgHuTOzjrSocx4iAIkaPllg0s5dQplTELgd6Xi0HsOYHP083HtQS27ZDjfLuc2PyrvQl zNS+fPyLONZcpWK+axgh zEJVDcHN6RqDBFOWfWywUjcvfVD88WYC0N1186IR7u4HR/j62++jifVLg2aVXytzpChmxgUlRMUKVtIt bXPY3d98Camvv5eUxlCJ Hwub5FmrZf5O94LLaLMYvMGRarth0RUsWzSVKXdG6zfkpuvxyNR99zmC3sSNV4xrgCyLIbscoX2I/YQY sFgqASd4LxAPs1Uo0TAr 43vNp40TuPvogIM+ed+Q3fJ72v5f/O74HK0dK2Mz1VQXR/PkTuWcas/Ylz4v21L973fRP+nae2toFAfZ x9whknpeKALKrcfxKMsU u3vUE0kRrIpSaviX3v31ic0qejJOlOzRooVEliM4OfsLFQk+VZdOmbSplXVMMtCt2CL5Q5hn32KJUdyF irO03VZBXvCtZrCKM4Qt PuCTH44b35LTBLxndA22Iu2r9wy7I7WIGWnzXFD/rvF2RnuS6tFVWUkhmfdOxHZmcl7JJP8ZVTlBqOe4 qBcAG42k+Pp+TBaWO8np BVCbeCOx5TgIT5xWYM/KN2QGs4Rm7RBqgu7AZxMGhUpEASw4pxhdD/2xtdTi2NrNMHEpxps2d1lw53tc PpjJGxuZVx619ZG3+Tl9 VAQinltBUJx+gdTFXf0C1LS7+7n2rEo4GEZfV5VGUJ4kSXr4wHCh61sKd/HyAS5IVBpxZJQBZSc9lvCK mw3KprbZXNHOQ2SwJRz/ Zq1rdl/JIFQbPRjtVpPUJZmr7//8wJVAx9XVvZn8x39T5QnOd3z0thTgpRUPwmy/yg97LF3hcehiW4Nz MUGSj8LM880qdToh96Gm UvkR8S4hKS+Y7eywIrWPXZ/EoDseiilnnxwNr0CRaDmqFDjJuLuvL17l9cYqTfrs8QVexEdtNzpg8Ree 7Of/6SyA7aCFAFICOUJU NA/SGeONuDOc1YFbX3jpA3ZOlqjgcWawahSTsBBLnXxXSC9+Qyc4Xw99r34F23CnE3RiCs+ae8PgQrcQ m1kmd5sE9t0qCED1siMJ Cnqi207m+X2tiFyR6s/Yvufi9kJiXugak5gLUc1dGcFTU8qHPDVSLLVOpJ3u3YqJEUng9QPv1ktYzCNA 5LWmDsiWoeyYK84On26C nJJ6k6CsiUuYa/2K1a0fyIgiHv7q8loVCOeC009fDm7FcXa92tUjmdsfSuQ37qOu8y/lXjBcsjur6Gt6 t5wy4d8IiUqMatdIYBsL 8maPF5Op53WScgGIwOg6BQ102D1h/ZJ8BVcR7uisqhK3En/150BLPtYJc0Ttxm2dU6K0mTDZfy2qm5/R 7sUGXyrcAVHxsM2jcbpD egFtbEi4Qtq2ey5jodkgHttqHlVM1pWTIYMmjT6hKeJqiye768u32ayGGX2/dgOxbLOLL1XMgIHWLGha 8JagqCs3I7ZSitdu1l66 +QPGO527hWslFjPDAIvZgYriEBlIUp3ksH7751RZAujI7ca1sWr7A0hg6LddTErH6MUZDoMdEtlgLism EisTktiMlJGjxu/88/dP r6+KJ27yIYJE8562nrmyTrSljZ43+li0XxzWZtyGipet4uujvKj4JX5Q9HsuSUVHE6bg7PubOZLtI+q6 MgpsgkDtiUH9770LEd1z HIH6dUrj4BXpyrhs5IzRUo03MPehAPvhV16jJg24dLk2ztBMVsOT1YIMJNvizlUdPbs/xszdCUFUh2T3 N+Nn/I45VJseecleSChs CDIz1Ez5LychaiDTBFyRT96/ANL5CLN5hSKIoGXw2kHRRM11Dls2C656UMdz4f0lO7qnGNeKpJbNPw4b y+vTzVwVcnQupris6HpB fejmCmoH7x9me68Ukl6wqupR7t9mRGjkgZBN1RFjqQ24HudDfpBJjYEzB2mx9bAtJb5MDOitoW1yMVVc TOAuAGkAmOS4Poh8Y83z 7qxawrWumblcMpp3Gwxi0Hx1urCQHaKQutMNn0yObRQNADh9m9gfv2CVNt+ZJxzchhmZ7CzCYAoI1NyY AQ7ayPL74mP+z3vlsYZt boh3+QVvWNvXcTueksfN14nB0m/bKlgdns4QFaB5oMh9FO9q4A00cqbqKOtB35FB1/CWsCUBrDCwkBiQ gJBkpxYqtFpxBWr+1YOd Vq1RJwi4ixyrFnYqyTUrqB6AxDTOzMuU4hAw1gDT96bS7H79/sxjr//ZGZGkyBjsxkYVkmpj0rTIWNlV 5HgfwRJkkKx+Y2Lo2sjE WR0mZt+0/U9kbhiVF4bTlWpiRseuGE+YF4VMKKQnlZyNztLpamrIXKZe7FKyH9zLhXLNYFj6Iy1hX3dA pVcVWFKGKywMJCTkwMAR fOcj9H3CTCCMVjYk+ny90usDljAWguoCjgv9iOROqH4/KvXmNdy8pHGibJ9tlPEg1U5Ja4RkKL16u7CE EWKaBYUXOKq2mlk1XAMe azRaDQaGIM+2ugKkoKWTLpe4Vu2bOpt24qClIJGDgEFYFWJN9Klhs6eOPou4CW9PvLyvsOfUePVcL4vS GCPJYlDXn9VisWObrzWT DbD8ftQPtFGV2HP39yg8tzuMKILkAbd4Ib3Inj+oqkRpw5Q2WE/MnIqgken2J6oFTNWYdQ9WzWi6j60/ yZrnVwLU1ASnCqOGkWPF nKdRZEoAPbjEmqTtqwfDrJOgRq7IsZhwIFM5Urxl0tfQMu0m8LAn4DE+GvRLGvyBgEFNFc2V+0hjmEQQ jmpbvOeuPKbFf9CFYEGJ VQEJAabwBvrxbT0yjttURME3JPOFgJTiiNPhKogpia3BhzEoeOuebrwGHkMplDmPX6f6128u4ezuFdfL qrrMhUkywBBACAAApycu ARZLQpgcPLxZGNoZmt8G+fsLXmQko9IcsVlRQ47L/cgnYaoXkfFckijfpc1/OXMzQxaGfyLL56hHumxk V80+WLwxP4EZaQdGh3yC H11T8usvhaXatQsPfApco55Y/wVZDvyMyC7qVODy7cYLcXiWOG/Ah5yfjr6ua8ngZBol7pJRvoxIPTVs OPBGftTtBGg5CIx9BMxg g9HEyyGZ8SxAGVtP8m5GVt5HUd3pju6CmH7JDafZPRuXyF9jACjkh5lglcq7Ckq5kpMNUkcM+tHCATGp xHqHAWIpcCyYNHGAQRCA OjbN0zzxmQcHPlHeJJrrUfKUBFiSWpneCa7K7bNpqLTcfU0werhezHNgrpi97vJm0fHvTHLTEGwxSE4T 9sZIvkszLCTXgha5QaFY QpHMycYmwsd1l5UBEB2AZz1a1jJa4MsUfI74tsO/HyZCjyKFQX0kNXK3vxc0AkQok9UXxVVoXcJEJAZN VGjrsTGjrkdqmscDGbru vPxMY0MjNgOS0pRS9cKeQPgjK6oze6s24sU6+/SosAq+eKby5lBJ33H/gVmENrRofWm4F2HljOl0XGhu iY4/YpeFbDSoNQsCD3rn LGNMNH8KlV/S31g/e6qfJRYwYrRie0q6Msp5Uw8ryXAxFrEIPaXtxLy6eYZX4xyxIRGJI00UJNXMwlZI 0JTjVTjodb9/Ju5T4k0p 3+iWfcU9qxaZf15qvP4vZsIi2U4l8zTWXWhlrs9cPNpv31+FaPXAfu++XpMAFNqDXtTy1I12VyX+nWLr z95XWD+0vY8uTfIj+U9e /VEAqEg+vX443a4b4zLKvFjxc1gVwNfXTV/H8jtYz2rwKJt11UZtQSte6UEttWxMahCrDHlNAWm1Jqla fQyQN9hjwHZ2saEWyhe8 ec2qIDsGh96YVRP7gfGuIN+XqW40yyut2Wb4XT9Lxs/1jZg4jjPyIyEXApi4bqPDTLoZB/Gx5ReDMmDw UDrdz0dEgEaskjx4lXxU SUFSI8CCaa9McHKcGc69yr5g7v75CKHEhstYwhHLDrTvVmB6lh17+ekb75JqmL3qYTUPdjinwqTFhRhB /9pe/masu5vwJ55z56tY GcbBFXDJUiNZdQy2dzTGDFgYyuZDUqa+6HshgfKbZugKmg49lKRZ2P8IFeAFWUtd2Wl/sah6aBUSDMKC JAtKrMPM03rBS81+UT88 xkTvgya5P3uOKxgnmYjyL7pDdflb8mXll1oLstWiS0+43Rsu+fS22WDvhojkpe9Kaz3/e4gFvrYYrxPZ gLXo89CFzNmg+Z+mF34W OpIUSGNPv1HNW4KZzZd+53YNpaKlv4QyITEJBCJXWq9VNJKBwipQcXE0bQMZWSBAsV//tRca35tWYaYk of4RJ/MzFFLlrr0XG6fH I1aQ+g0dPRkdq7EIximcmwYOiZJnFLkn8IwxyzfqMGY8HD8qV/uCxPikFCkqRykbBKsqtkQyWxArwPT1 EKCAKEYOEbyIso2/Iz8Q Dkvw7X8afKOArUIsjMpv3I/i8so5et2bm6OQvCaVKqrXOB5kc9KpeJCMwLTkwa2zSuQp/FSyBgArLAwF kQ/frz0l1+cg87YzbELW hMDUSjbmgMPqwnEHQHeFzPSxUNmQn1AJTg4TksdjcVKYOMUyb2OImMPsEKGVUJYPnHToGW9Deuekcckz rNnHIQqWidIC2oI8u7T7 JALyZx4tDUEQoXCnQBAANpG+Lf7Cgvyr51cA2/6seC9J1GVD6GHpPcIDus/DvAaNAAghvUtDC7gYTGRt TY5j5emaIbTbk80adqbX hjT5dlkwKRoMKOTcrpGlQMN7QLTvKwQ0CAn3uc0vpCodduRsQsz0WMfhaiVDDBMbzeoADuWt9vqatg92 vrS4Co3+tPFlBqwwsIUi KGzGX8Rm9kV5Pv4VOtn8Tj5NSa5SPvCffOgp88G0fXrHDgYXM5k4oTL1LeawXuVVCYaO+fJI26M/mHix HuNBLBAZZiXZiHZHc3JK RPxgEQtnDW4qXkCQuImzGYqsRfhw/++/FeDt3/y9/MYF0/QaYqIQAsAIdfdq+hXTmSw0LR52x8KkrZdy DPb8rUdJPgVvvRzO7WDS T17Wu/uri4hgs9dORz0qEGNFQjMRLArH0Tdq5spf8yzpUa9Zesa4vYa9BtCSiHdjBQ6nGAE2zZUIcGq4 +TT4ajHBDTfueZjKAZLn TjjMhqOLXKXujQqQLF2nS9sFvw9kyc9d9k+Ocn39WMaZ7DPlvIF8k+EkiurV7drtaRscOGgnSBYH1+rr RRodHTjJFLCYKCVCvGrZ 9Wo68L7BNCHbv7+s3vsaqHFcLZuMqy3zsAK0s+i1+t/NaL9cb1/SCAWOBdYGDlDWYnRJSgPjn6EBDcds UDQqHHjeQsW+uciB9CbQ h6ssDD/WWbt4Hb9+5awsOGXBf87klALGAeCGlvMPQxwAB/jjEpEb54P/D5ngjP5a5b2/hZz8Mhwdz8V2 zmFINZtX202vb7ePZXRC wPE/LHdeJRMNRvQxSxBrJUASVxyHAAIXvNCNRrNbcSFQUZHlsv2XAFWwEPIZIuaMJRDHzSETIvJdhAPA LVGejy9JGLYaVYYAYrvW FLNRmGSCFwSojPIPXRAepu15C3/Y/7hONib0+uBVaXKcKcqMneGX6Ui75QcP8vgnqViy4KkJJbQa1Hg9 vz53hu9+/rMF8ITaPrsE DVrnZ2ASGUI1WD7mKbFLhrljDDBMVCut4wB+c/m9G03pajr6cq6C6eJhgpfXV0RTAXWpb1IvDf6fk0iN Dg1AiPbv444ndAQyic2j SsoTb8bvxf4wkccsOqi8qVdi3nA7+rHUf72fQNc2zCatCpzyBw4qLzXVKG7r2b9jLa83IQRAz+tax800 d1Vn1yRHAGyIzKO5vbgR i0g0bc0r6Aw4XeUU898vwy8X75XPJs1OPVmc1bwRIGNrv8KZiKjCz61kypCXZOdKkFWv2LbhVfhUBoK0 HvggEgk+jslxvyHSUxMn Ys31eUNviZv4hPwl1mECYdLRnAueGafcdOqEn1GbNiEG34pa7PcrA/tZcqzUEuF6O2cxWZDb6u1YLqCa AVPjeUx1XIdCa9FIB6ke sLaClMQ9+3a27cf7+ZCwzyMBFkx6OybehboRcVFSH3dIi014LwVYbT5+PV+tbcrz1vqzgxGRaMZw7FR1 tBMjn7p0sPC2e860ZNUZ 8SHM/V6/ZGDh/zK+oev8g5vcd6aTOp/t7nEnSOWo8rgqMNF3U++6dS5c+Hyo7/7asUAPwNMri2+esSI6 PrGX4emNEEGsMBM3RguY 96/Q6eO/N5tHmGPedjCq0AazcKhLlcxAyjCo8GG4IBuxUUrwtRmmAnfDPvIxCkFLf+PHVOcWFOmTeO/a J+bm/vj+QfuhPiMp5SA0 FOlMz2gw/3dpalc6f13dQmp79J15BYP88GJ2MemFp3ijEI/Ln/z+g2/3X/lWDfCHtmL9a5pvP6r83wbx XG/r/jgQ6WS49/hA5o8W t46MoZB3gxZe7M8GuCwl1qc4JDOmNGRlAi/e/EvDpPf1kt1Fc0aRq4eOhNcnRpEXnH5eIFTmZDOSIGUy Jbof8qxFj27bQ9eWfe8l GmPSCi9nsMK9vMDsYUBt4r4/KfEJHPCF32i2rOddNzeObEJz5p0J+QwUqkTrXe9gyQPz6DJCf2baQYd+ yOKwYFRiHnDKJ6c5xgbb dFxs0TaG7Sx4lHcsNuvb2djDvKDGyGZKS2MNgQBx4oo0bAVIPQMpMHj83BENbGTCS2+hSg51Ff5EPZvQ Tu3uro2pHhdMwpmRu3+R MqqA6XUNN909tFSO7ZiZxviKyN4zEbCnp004+8t5cPWnidTvt7j/khJ473OSbiIUtfH9Lb6VCgtE8QPW E7is8OjNRodbix3oL9Jd uff4UIL58ZAf872xDPPsu1LytqWxqg+6H1gBa4Fm5/f/kM13jBYOyu2sVcCLEbHqwh39REIuhAkoIpZz GkzqcxSIXIcd/5ciEqtc cd5NTMewic+rs4469ZiEK+NWhMeHvbg/y1cQivGhLPBq7z1xz4c+Fdha4JdHIV5kxyTAXwfBbOgmHkqF OhEcTYB5qwMXpXrqmrKv jOWQg1a4qwIfmDWaom5eyMBsio7kpfREM9rFMxO8Mi3Xw7nDfl9h/irMwppKQ3LmBDf5+ytnAlz3uHpj RA5VGLSZHdmJXUwAI1Uf eCXvNPnXUZl90XYcGUoZ3idbCBRm/l5meVKMr4PSyh3qzJQj4oszMTJnEonjGLRAiMu6xp5d3xndUd0C qBa3fEv5eix8dwpJK+kj 1JQYFFbPKIWXVdo6fq3JqJlma6UVa3DzRGyzcm/yQNq9SdT8iLk0ga+qb1WZk24E3QqSXPnfWN652wyr aYN3q9k+j7g7AWikodXD 2aqYcJqQXyle5I/bvwKl331/2rVIC8ait5dV2wfJRKWJJ9p+0sWSHfFrLNLOXpYx2reVeca3+VbN3DqB PNAg0H/2zHMrZy4woLoA Ufki36gme54jXhxcLtCnVaCmmuClghNa09oMGXk48zIY/7Ytr1v/359+c6KBFdunQXKQ3kTtLDSBtDwR 2Yhw2yVfho0+0hZAz2Lh 4IgE5aHXPtH2RLOKdYe4bWSsWhIpwrjpht2kMKBgCxQyXS+/F4lyjov6yOH3AEdJEpJfo47ZtkEUeSIz p58u4raQRKdQn/euZOcn MsbqqKxybrWxouphfZ1h7ah6BKep00/sVhcUFE/pEMXPxxMEv73XyRG1j3+tY3ctUO8Y5wTeYZBAHq9r SHnQiwuFgAQBJGWlrZm9 ngQwDVP3JUk5+p1a/CIOHgv5Ff3dh3+CmTEWo1xpKy/1gs2Wd3oGtmzlVYDkrfOQskYydrB6Gm7ui8PE 0leOubiUp41ELtjGLDiQ YGg0iwIH6BEehJo6bbDgx6bQ84VUdnEmLSS2uJq9r4mASg2qWPXcvBkXT6oSjh/f/orMG27UmCWnh60O Oor4jBX8qx16+aNm+zt7 Fo64fXiZOmqYUy/Tu8aqDvrI72a5VAq2LDacztvVyI9fj3+VHLtlYlHKV4hOCp47qjq0VFulPwz6I58c 07edrl6n19LHLmYTbjq2 CWj76hiJu6mzbk2F/XNN/C+J8gPh354z0svqEnhL2hNk4PJiY1MTwAUAr38u3LR3fE7uf9k+/v6+fv6V k1ONYThTt9lTi7XvhlMp x68wbZuxraFQ+cq09ug7SOcDim1CNJslBdDyBEjZcvhm6o73DbKn6Yvyou5K4/Uex8TZYtAP51hhdsD+ 1SPO3Ywcfb1Ku7w9KeWu GDP30UAz4cECbJ6eXlbT99Szb3kT9mcX/f4+/pt37rN/OCjhw/0tc699k4mNOMH5XFs9Sqz8/j7+u3Y/ kf+0N07d/r7+nQe0BoUq Ny4Y5UjPbxCx//y5Uvzg+TXlGT13PeUBZRvIesybnugw+8m362vaPx1jdsl3iU2RFdOeR/i0nLKRI731 VPU4Nlnwss0gSRIKmIWF zgy2gYbX0F35meIdIk63nOl98lWoUYru/utv6/f/1k6Jn28cnMHAV4qxS19SvC0mmQdz6aHLTOhD/TyZ Ehae2Y1a/Zsf1+/7p27v Jj3boIJrGGp3Rft6/TQrWngNlSiAMXdHORdXnv4fK/Bh8e6VLlKrCF54LyFkEoSa9zsrr/klvXF5wfmh roLXbYAxSk12mN8lDO++ snf12/OPh9XQE+2dStf+W376cQq7ISnddcT29+EuVz27w+oLvvWPeb68pHvdwUqsslD2Bw2vbEVXXbx7 ro2deBNAY8gq78sEeM6l Kz5vkHB0Ht78DJdkEUohxNuGtEL40OL5rkivLrSuYkVTPLB6pdjF/i2kgU+Rh3j0o0EvTxXzfI1CdhIV pHKKy9r1++e38yzyqRSs 0AoFsIg77p100CLUWRs04NV7DYB9tkxfd7ROjpAtPtZ171EL7wM7KcZ/QcO/Fm212XRoqGXD/HwwQOLU OKz7oFBt1Lno3xu0WlwX YgramEQBSKBSnixnWeRLD3Lg8AMR8wgD/4H9x+wKvMRpKamxr+JN+36+OOuPAau6f7jx1Ae+V0Mt9yeB 16lWB0Ng1pTkdVkWhtZw 71iHese4rhhoJx2fzFAe4sHdzt6/cazx19xs02mt/wyMLwnDyuJ4kK4oMhRwt75cFPjFQG8GlZjj1JHc Es41fczyw2LAsSgTvhus zqfrFeFTQGE2klpFCCOdJc/HCdGbIDXHJad7dCzKRl2v3xlJY8/hvYYQq8cj0wl4X8eBh0MD6/PuTNnZ 80tpfMZOc3FBejj5rzSv +fN9/Q2eq4JZXiwPV8fb/Mf8w78ConJXb05EKeT6Fn0wwE+Ih8z+blbj+0qisy77FDV/d8a6Mldx46bs /gtOZqTxJAC3o4KpMi1g +Z5SmXf/v2+ezgOGP0tDeps/id4DvIj9GiPzuiC5Ql4P9bL6qy4+oXToSxB4Q5VrWpvptRjT8xDhitBZ dNGAjSvwOMq8urBEfju1 zl7yqdRUziGHIwfxoVxP44ukb9tUJgRJCpxrBCrKNtHzXHg0Kom946JkyVw0935c0xGq9VJYr6dDUgjj UPx18ycrWa6S5tI2w+DB NQMrFe/vtUsbt+66nPBmtvUGiydFKGbSJSGEfKfTF6oqpjdZB5+ZGKnKnFHl24fqvokAKBXVApGskI3Y kwGolAvOpecslJ50oqoI 9i3/1bTkuMzcSgVc3+PBd4+Vv2tl71EU4n3ymmWTSBXLZJF9VQHF5WSWF7+dLRAehd4a0/8PHOWVQGSJ IUiEQCIxWKhUFhQOvlZO G9+WJAzDmIAt12qXNDP71bSLddQmTc/z37x/EV+vVjEzK1kzvRT+x3pKEtl1PebQR360icIbg6zYtOsA 0+rbil91zgwKRY5457gb CSBbvTTP7ftJ6YuHL1zCRGdbNK68tP227Z3m7+/evWqX//+P5HeNNpz2l5kwPyfFlwXj3nVgnlG3/fN8 mW/os8ZwLDlVQZH2JXo/ QFZ7kjNsxi/UmSoMXDnPJ0fztWMsNQSyT1ekKeKyLRU/fhlAd6uvRz9KRH2aIlW/72cWZfxAWAQ4yJWF LS8t4/DddRR8ud2QT0+f lJUcIcO+G2NObQwGDi1jLZr4ooFR/zpTz0nQ49a9bCxWecwFtxaCpe6/Z/WzPZmH5Zb13UC5m2hLUi10 uPHjhczzcKxMHF+0EPII 4MGWRryu4T4Rt+JNbfe7Rcr8RseGDLgWu/9/swGzUcGWFbdK5Y9U3FEv4t5pARdkeRpmjbqO6lPxFkaF Wp0z4pyvy2CYJVjgPmji /JOMxOj7rtLMaGcUedj6+FJ58XpXaJ+0N18z7uEORHmpYZdCfbLNpp0T54U7Is139lyac+6Z/cq4ubV4 C4hYgyRx78Cryql04Ks8 WvVujUAXA+/wtE35Njc2LkY847MQHcxlsPyn2g452/hT/DU7oYc8+rVr//IadMMKg6mUXJwCoi8mV8Mk CmpGWMDfFzUhn91nw4nd DxICo0a7VI0eTW4+rd1/DmDieIfG539mHWzSarao93YCEVgwwJCQoarRBgmJrlLYAxCC/v55QdtmQkz4 9iSOhrGxxZt1AUQC/lt/ hQWYLUcEQM8Na3/zr4b+PunyMzMTExIrN+phS8BN08mu/mq8HE3Ab+UvlVnKYWWS2Sa/utOGhYVtpY0J 0+A89p7x15j+Ob1m0k// FQHN0lELuxv9lxZ7f27U//mDQD4+vn6+DB5SQLfyls39i/PGRkZ/FzTXEPL2r8j+ShSYff9nKS/wsEDb ++mgoLGDEOIbNg4Ij+Eh kGtCZwPQJ9FM3oH6Ql5QuFULmRQp8M0xtg7GkNt8Xyxl5uozRPh8c3xAs0ggvwnWIt9NtyKQfnj4Ufaa ffIAODB/bsEAi2ov4HEQ t2jkQI5mNrWHgoO/f7gH+2IHUaSpZxVMBVU3lcrF8NZ9oXAhSiKLn0ml6co6l/tF8g7HAOS6C1wcPeNe M36biuR1Ra/bldAhwIAS AHdKLwOd0F9zxc6d3KmP2cqlF5zcbncrH3M0HK58GvUBEwCAwrh/Pj4+eQ35RbY7Rs0n4I/u4vvOtEMP qlTEQqoLZHu1iaPUUEIJ gRnZxfzVpUyV/hmOeWhqjwuWm1ZPb4SVXCMETpXLgllHz8JvhP+/CErsbquKeXQl1gt1LxzzkjHkOv6T DWr08K9NfHcldz2+jgq6 g271WFZX7Idzk3gjH0JBXx4V89kp0CizrczxaQViKkYb2+/TpBkTPwseju1OaXZT6FgFq/gmOk3XTjVe PDgP4i1omr9dK5hlPIzp Y9fwG/NjZX9NkLuk5xPoOr31Ltq2oPrdgAERjNETJCekV+XLdRaOtD52dUII8JM57xxP2jiFRKHg7Jda 83uOA8WpYTQ7NjWJlye7 +GHceMNRoPVDoWJ+y1fvDx8aNKBz/Lh4Ktuw5vv6LW4xd90diTW2sr9eueJks4qYvMqoL9iFuZiLy4x/ 2tBHZ30lq9uy9enFkv9i hz81ACpcm2+fhO4ZOi5VZaRiP7eYvwZUDNiC4xReDotO78TDLYmTy0jW36zGEllbbKXWvaMlRMSsCkjR WkTg59GtwsVcxcdZ3Ll5 8BWDOgUBr28G2bwR52tZjlM3YWBKPGS12hbCBhLtEqZnHxCcfAYDPvblQJk/Krwxl21YJkbq3Sd9NSmW rWu1pGpdUuNbS5bIboyo i18/f23NY0ZXWoEA+M4bv/jkEURAlpSOkQZgd7ig0lUTJUCzYpDN2Z7OMb8/9dn+MiRABD/4s6NSDH+q GNSoWLFPn3/9/4IFy1qA 2cZthAbCk+Tpy7NpMaoDns8t2bandfbnA1ko1m+j7SUriUzo8sWEGeuziCmZ7LxRnDY9b7xUPRe4DpWp OqCRXn63TevcuEtKQvfU Jib+F043NBzXsebr2jy6c2/+eFZjn5Sb75ie95aZUr8d6scHBFB/1cg+GArG9+gR8AuZTD/ruM/dEERA tNbnCjqLnqvJPBeATSat 28weqE8s+gRz64TmpEj7NLw0mGokWBcUs0nKUtJqnWI/hUBViQL3Tdpf7lQd58cVuS5TQfr4DvWin845 MF5CkFwHqfd8lg31MjV6 6MdSwrSTt4fUJH37UuI9e5GFNukUpLKxqBqva38evHnnhgdPXytPH1GJ+ao8VB2M/bylnMaM09aQoxcg /2cKFqDLL0dMUw5xpo+9 3FDeZL3CgXl5qusuY9InLfgVXDva7ch/OnE6EwTMTbPZ1czsEDHkw5wUwJwRG5wl/L4ib+ncf5zo29tB 5/mZH9Av/6I87zvVkHPq 3nxBeTPERLKyPoKUp9xI2tMvRAHkJKTRmb3UBw0wCKpaumLqOtl/Kz2QK1bHkQzbN0VmDlbypFQcOrmn jKsHttvOgxQ0HvbAtFjS GTUdp5vkerpys+xiPCRuMGvCvIjFIYtv70/hfsIcqUTC46haSqthrJNg/+yaNGzZ8/jYc1jJisdFu60b nzkqNHFsbWb+Ftrunft1 t1Up/v27F26+JfuPXuYDzN/BB/0WvB1xx502750ka10gjrrzx/fXrRA7ByQk6Plmozb8YGyCiMM4Uo2/ ordA6XROYXTPiCDpflXN IhMIAzvqgKLpR9pob8su6+GDIO4I5z/8QAm3cEh2J3BlffByJarHapo4zojlEPszz7X+xfkffYRKBSKi QpMROu50bSj2+3m6o4lI ovNC6eFkngyU95gIcMUVhCFeuDHzKtrxt/Oyc6+dpKx4kBhgx080oAgXiyvKSVsEt3bYyd1INTfYiLKi j6AOFkJYtOV48bqNXppq B1TfUmiean3vcoxCe91mJijVk88DvRbgBnrwtklgeocjbubTPCCaTHyCUfwNqRQHOtrfvSaQU2qu22qs uKq42ZMrpTO1zTfiTcs3 4EKdw5netOs25oo9/Tno8ier7mmaNg2KEDvMQvx/XrP4ZCmED9U0r3i1p738MTBQOzs5+fPBw8Z+kHZ5 2h5qdZwYN3JtcSYXSWN4 IP1KJLMqpmIJFU8MKO54hkzz6mi+2j3cjK7AN60y8osXjBOg2nVKjP4j8WfQhuIue34b0/hXfnogx8dd k7fPQgrtWzlYTXV37FaY tspr2Qj0GY+pS9vT4fS/2qTblJbwASKcxH5OkjDLBeP6p+3Xz/e+pW7IejOhWk/C6djqb9l9Ewgf0iG5 41cmFhhxYMBitKw2FmKB NE70Vgy/1Ub/i754Ts7K3IQoRs5q+HFVXeykkH01vhkFFCpFZYOpedq17755DyH3vC+xe565hOLqOhh5 OzSdhG2cKei/+7D2jKuE +WEPLRnWVz70Drd9ct2v4nupJ+fb9gZvxuFwcltRn5SkwfXflUB3Ih60yT5fEKo0m702at3/F9vdIl0+ /FxfjD74A6xvcM+2Auvu Dd5TJVT0Bf/wIZYz0bgdo2tewEALOFfQvN2MzXgHAGh7vqi8a09e2g/AkBiYuLkH3/J7VMK3upSuWq0M 4RnKCBa9nVSPMaEjwv// Cph7Nyuj0lIaI8i94/r3vvRXOIb0r468YTecEicWD1+iSI2cUJGZ8g3ISXOZPZqRDd0GO5OV9856kyDf 7Ls+BQmBRPb5Bg+d/Jvw cLJgAkhGoawra5K5r6I0+/b+/yh1jdz31rkupaGTTpC+ccdUaLC3Fx0szIuG0Zywon+sjCO7awImThzf fbg/IUL+Tnwf+7evXXzZ onESg/F18+GhsOqu4jPP8GljYKnKhwnWJSmVIcoFZ6/beeWvznHSBXf2AXrh1KMiXfQ9ANnJLOTUgbU0 7Zt+LuVG5Mh26wzMyfiL FMT1Vmtq42RPOWS/0Yri9mXkw7wQHKp7B42ihBHugaj+HwVvhih0tJIz0DJvvi0IvJbkQaB46/ggPwRD IMpLzi4btIM7AhK5qGEN Tq+WsElE6lcDHFZrWwabAIU5znYoylZi6UatjGfytXDMpNZUVxivQ/DyQk8WjO0Xx+eOtYCVqecpX03y 68u8hhEa1rE0uja9Gyi0 eExf+XHevBmZw5rVryefcJXgcV7qDEY1IBjU3xYAYu8baSi1JuHmaTJYYtmq1KLqIhTxEXwCMnfCtSm6 Vnb6wkV2bSpfWQ5e8EL0 96H5VM3jaSArk0/AICnp+ndpoiY85QJmNaI/meRAXAv0mq1o/t1A174zzMF+9IajGu6Q/5ZsLwR5jitD NUxNOBflbDhaop1z10hS jQXll434iJVv6LP5cqKwkJPct1QEZWkVpzk/I8nZwhH1tzIcaOOiw/uFtJ34aAI5K5rqeGvXdgpGQkSa 0Bn4CXdUjXF7WjAcT81J j787y5w297b0A0y2wHmM0UzG0L5ldzwAslnsIAlwMSLbBU95MuvXsip9q68Q3w0QIUcFl9BLVzE6byet 5V6juc0FYUD640iz5PhR mMuEEhClITnNGLpDkRy3q3xtdJDCyDRUh8HWSRnko6Bfy/ipJs0CEWdYmp+fetW/uw1Lfqu3QUN0w7t0 jmIAdTTWh6OMkyxSfaWg zJGXifcuxeQWsQm0w7bngxzyGeuTVz1YBn/oF7rE1t+CC6FbssUhkSTpaW6TezC5oNqPXFeMy26UfsQz K3vsz3ssdrGVd8NXInMd f01lDvPKrqmia858/vlEDENv8pFWxbv82QmDiGdLjos6pKllaZJUn1y9g02WJQnwXcOFMdJf33V4XUu0 xSscb1csc2IuU98Kf1q2 +margret+TXs63nfaKud0zw6T7xSZfeDxYMivPgSV4b/hlcPJLd33SvDp74eY1o7L1+kFEd1grno2piwqST+O O8ze3mz7ZrMzS6Kfj1sR n326Ulz4yxwaCkxzk655kjgpb2wv+gtSExM/T2g57bR50ZJh/gR8/iVFYZhvfQZnJks0RkhO3icb/CoU WvWrlkjFosDAgNMfppW4 W1gZHXvQkIClUkeN58jaXYbmw2myOJr8Lt8Nr42eu/71oYGZ70DgOALMWfJ11ba/693u8JAYv4hr7blb 2zadGDf/uVLl5k+XQEAs TGx58+VBJSFop76C6RLAeM3MHgk2+3aEIvwqCr8AXPjsezBPdBL9Ob8Yh9ji9j67MVy1/9ISUlRKpUMw 8zyWrLGrAJYOO7pFtyu5 EYFCYr4hDCT2/Pel4OcLt4LfIi5X/v5s+q9QHx2Q+h9D2cTgJq8u9rBIeALkGynbJ9/f/q62vHWe6af5 hqP7iHQefpWCFCpPuBhL mAMbvuH8138t+6cOVqNtk/bhfZz9E2f4YsegNxhCIE+MNAevxhSdaqEfimzl7ZlBLPC7xrOvViBAZ53A K5S+xiQBntyOx9Dmc4+T bxAKKBIUqVSRT9+sXSzxhTWjj7MySDdXAhy8o2f/AuitDPRf0vyqr+7ju/TUYKmZ77GyKFFQUrF8x48J b1hrmwsuqMhOCD6TPx4E wMuurKwgSvwWKWpz6V/3s8l53TGWxIsPrDA3kcH74+ab8gq7jp66Xhe8EWPcCsjcXBSks5jUwvhLcjvt Po8cWAKELJKTppDPW9Ot kAet7euW0GerW0zTzdgeEzi12bpeap83ZeZpEaD5s+UZUQYjUcbqF9yX+RcFgoKpVCObasHlJ55KxSxl FGmntF6vYpLb8jp4tcsH ly9TaHWVQlAcGxaoj8JzyPga+aeTO9TW2aq8QTkIR8pLMGAxz1YmtLaYZUFHFS72md3278vdkgPIus/7 A3kd05yY/j5+qWHs1wub /PSbC4gI/H3QmKr1+iGa1YuxKQ430+fP3/61G7o78p8rGn0PiBNpF793/OVx7n6g3k6Ih4UvgX6mnoe8 YvPE0eNjtDh7zf0uOSXO s6d/rVRu1bEJTcBB+ILFnMcSgPhJTdr7mRT+/exGtVBLKKSFr531rqBC7rFJkWa2M1+igF1Z3M5eXLxu eNesk136vuqp4y+3L2bX 96r0hPCEDCYbvZFAgRxSo5jw/oftDgVABfZWncQF3zXR3KYXC5nZj3laXJSbApNAo+/Go8tBzYmjOpg2 yPwi4TltFVzd3sqtgy5F TjgENtUAgSroQ2unlzg/+r867hhjg7fw5/YGc3MODMD9l3xkTMBEc9srjkgDQWUY/qHta8mEBj3SShHR G5HaTGVhX/+/nqJD3687 LVv2ukRXt+9PK0z0s25g+/E07pz4Qbjm7jiCMGkwxiwH5KAA4+u+RGTdDjVG8Qksuitf0j9AFnQaNpLj IyeulVoJdEXsFOPo9N8H JrI7T58Djx51XG3v4tmCrD46AA8g+6plDtXKHVxIQJEKwz5Pc2JItCOvxEhkZ//6tVll8PYsTWCIUSw9 m4esdDpQ0RQ8Cs057a47 3LdAW3G21vPrxTxGK5YPCO5JDa8k50wbvzDUFg5/0cRa2jw8QP4xtu0yKXddatEFpMvI3+pEVaSrdD4r mwIjcfsk1ouSKTD/4ED/ 6mPjLAs++D+r9fHf5H4whYSjRmQFPGJDKU5JWavPTA21nCg23XFLpBWQclk2j2P0dsghakzy5Vsh8Hk0 0XlR1mIqqKjzXjvJd8AP DCgY97sRus02kCYHGNhvDshkBv5AjPc1ut/2xOk5JCKt5W5leZn6AbE22WBUCpwpXbzQOgpKQlR72bKM MKVEB9/5LAGs2Ez7+Agk 8oQQkajQa/Bzg8wtCNDNd0anlyRnZdv1bltlr1SeYeB3+gvP5slhRtUwDvpezG5+tqNh6DxaGarDHu64 oWLd+2wGkfEPrJZ1woUe 6QfWwLtgbx735BMJwt/WUAABQsjrSFU7WK1ZRsIf9WwpDeMmwh7wMqb+cJgMJh/A//Y+HyFw0Q7jpQFr mAwpQassDAYTKkBKywMB tZhqLoKc3XCYcDRevRwsHhmxRXSIMwGHwmVEvFqaDxIo6CQSpLCjlXhsLhdmHHRUDsPUktDIbOpdGrFv 8GUGrDCwmAwpQassDAYT GtPMvxPMmZahPnLd8CUYuCLuuFipNcwcXIHLMgVRbwEWqQypMwGt6IYUsBN+fe9rNtRnDKjXd/++OOnz qhx8z3jHjo1t47v5+joK BKJ+tagkuNTix9dKx/v7c35xDEI6kc9Y0qNrpXmCuR7Lok43im7ftu604ka0y9fLg3DDESg669LvsCHJ mOdYpCz2DIB9769rcwwj 6KZOK8id1/W3KYd9ikqZgwQg27XW9+6hcBoZNbDWIdImhbx6l1mHjAston/HMvl09Diaxv+qR4+fPj/z OjSpcuuXbs+qs3Nku4pO WKEaZe/8j327lia//5qyG1JMEQAAVRXPQmwZ8djceRxMV2GvHyTLG5mQwBAO9LV6eWiD6EQm2454w/+o U9mfrJRy280Fiid9iIEY E+ePCkk/vMnpfFWau7dBWiEeCMKhQa5qJuJEgAnHX5xEw3LSSBT7qIIi0hHif8CS1gShBcZogPZu2tBH Qc516Dwy4M8/ZkzVSqV5 e4Hr3BBTZRapn3/7MkVe16c+WW8K8UT/riOEYv0WSVH6EAfJvyb+zYiwCRZ3rhqZRNIgXZeskA78kBzJ SW+EvIOFNu44bN5uin50 35iG2RiQF9eYo4vkclJRyDmoYYWK49sGyoRywje56dGn1z+3kPEdlgrMrsEha74+nko91ZSuewcNahEC w0cACCL7Ltj8Tu7LMnlO v/39600I5H//v179+2wNJGxGcv212pCiAzE61brLwy0hdPmoSt0+W6o5wv6pmpZvLR/dKdXsBUs6vB21 cWSLkpF66BRQz+7bt26A xNsxNBxX02YACaKGEuMccc3fW/e5IMYDXUs2iVRFybpB3rOjOeqlgCSsMsXo7v2eTofJs3Scv5Rbp1x6 kvGNVOAs3gyRkH066/z2 /tKsClu44s83ds/OhjnZ9j745GBXkx/UOdu7et1W/Pbz58/JsF0rcsoSX6ayFvVmJVsfTuxuYDManJ18 YieRbyfiBd1yvGYTxfv8 UDoUFpbPTaPDDcDdMTAHYgZHGfhxfwSDl0dCQEmm8MUaOmc/VmspZZfTEYYyDdPrtCx2nr9lgEKKOLIE FlZWQAwc+bMpKSkwhWWB LxfZmHU1RDM73RdD4lrO6Uf8YvdHP63YFW5Nr69mBa43aZUzeKvk4zd5drRORhVAYDNxra+74P2gjw6v 0dgKINf8YavCyQgRfBxc PztjuHDh/HkNJaIUHWc0jnA5OvZmhUYp3fKyDCKVXl4nzFyEMGIUK3vkuYpTSxIyK96Gj6k/Foh9zZiB 9hQJeOMJ843otVccafxr NJB7/bUXwEyIwqW8Gn2WpbheBp9dFob1jUioNyHqj1oXDp8+/xiU7OkHiYg4SywbJBzTBXNHRvaAu5Ui p9Ll1SV12FRcpLelXWr2 22qisQgIVKB5FX9CJJVk9PdqkMl4k+ju8wk3n0hByQIcRvWvdUsky//dknqPGsYHNYrTg4RmUr5vn3Oj Tt/++50UAqPWuhX4qJWT 9FJKiGCTqlKH289f87Py8DlSWydzOzip0r0BrCwlL7/v/zJ7vS352bQ3B+N4iMXp9Pglo84786RIj7w3 XauwU4DVGDJKd2MQKcZD Fl+rgqfLnCGNFrWZpigSfGgt0oHHJ5Y7MBzg0TXkZbMsEDOX0uN7+SSo01k8z78bgPekzqm45843cCAj QAAc+bMsThYUAtLIpFYH SusXr26+IrbqhdOxmLyKrCAuzTiEu7YZGd6ypcaadWpTrNoTI1cerjOR6mhB3xnzpiYMJ1zpeR5BHwf8 Llz+YtUoUKF/HN49YOnE IPW42YxAbJDF6gAcI7p8CTiU0Lrl8h41XaBIrTj2HukHfJMiHlCaO/s2I2FStyKcLkVSl8h8wn/+uqrn JycQhJ5+fJlMbNDCFnkC CRncaQFGr47Nw0gceOt0L8YbGOu0liMqBitUyebb9+WUwYE8fu9+vqacjRhNYUaNWoAAG8+P4QyBfcTm MXJDdTnk9RvcdOIfXkr3 TVxQFUn9gr562MjQ+2fqQPPv756TQfSR/8f2hNfO0251714s+/kDBn7JVCXybDsey4QLWNBFNJhwimPB SQGba7goRxyHj304syqd Ym1TP4dJy2nDbr6PwfvQiAHvO517XqdbRnzcPziN93kCU6ECmJmXDNew595l3YkvlMXDrLc601/++23c uXKLTiZNUUkLfvjIL5k5 qfJWiaqP39NZ5DcKDRe1Wn3a+u9ux0j6qeWb4FdEn30DiJm+kQb8S2X5akKTTa4ZFK2opVU5+Ri8CsfD sRPtFg3JzXYFjEQQs72s xYwSxcf9BZaPje6vxn3LwW70Y/0hbrfGBXmuGiu1salxVTO9rkwHXhND13jKBivQQC2D4P6LTDtNDOfx nR6ZSrptY/SokuIEKpfv j7D9oEGa7tULQnf+s9H4W+EbHXvZjNLJm2jvhXUlxg7Sh4v5yFr7jq+rvYkf8MLSUWPyz4m0t2g7Jze0 ed12zBfjoO/ERQUZApat CoQW1v5k4k+49atW/uZOAn4hGmIg1HEflfxUuPUVeHLOmE6sRgF18/Upn7Ktayz8J7FzusiEfD2a4kB/ Zdazf9SgE30o+ePWJASx 8zsaJuh7fhDmJQI8Zn7rxYg098EsAuRA3k3xIBlBf5HSwDi8fG36zeEXcb1tr7lKkD6xkg2cxMTMMEZe /xbk0c719+/FYlEPj4+j h6C7taH96qhE1+syc/z58+vXLlichMHgJ9++wth6lc3cnq+/y5a247ooBg4KuuCmfe3+/ytBzQeZB9yV QgZlXqfd1Q2Hk3faEu9p lqyhmSyWd9n9asSiRFEN6ix2Ui3tXU/yWZFdI425x6+/dUcakJwOerpMb8iquFgqnMNQr7a7t86bjRQW F1TXkFFhJwsZPljrbZeO qspCOZKAvKGzFf6H16yzjUUdhEytGRo5tg//vrr/DLtrA8RwnXx6ldO0HbmDjRLPyKllnnmrQFw8ishY yHYNsndMSIQ8XqZPF5Th VFvP73osp7cTRDEzy92DLADMa6lh68bpPbOaDmuF+fPyHlHYq74cIZl0A/PnqXvPgy7XmINrFcSJtqKu LNxuNaIf6JAYjRZuxTru TxsdGTESZvKLoiYKoPnnCuGj7CKSrJWptWeuEf/A55RS/b2d2PDJCBGEZsJUtFaXoTB></span>
</div>
<strong>Patient Name</strong>: <span class=clinicalNoteMacroWysestefania id=[id number] macroname=PatientName spantype="macro title=#PatientName>ISAIAH MACIEL</span>
<strong>MRN</strong>: <span class=clinicalNoteMacroWysestefania id=[id number] macroname=PatientMRN spantype=macro title=#PatientMRN&q uot;>[id number]</span>
<strong>Date Of </strong>: <span class=&qu ot;clinicalNoteMacroWysestefania id=[id number] [...] be better tolerate d</li></ol>
<span style=font-size:12px><span style=f ont-family:[place],Helvetica,sans-serif></span></span>
<span class=&q uot;clinicalNoteSectionVisible id=[id number] internalbreaksection="false originalname=Med Onc [...] indicated for today's visit</span>
<span class=clinicalNoteSectionVisible id=section_ [id number] internalbreaksection=false originalname=Smoking Status&quot ; recognizeconcepts=true spantype=section suppressempty=false>Smoking Status</span>
<span [facility] id=m [id number] macroname=PatientSmokingStatus parameters=ValueIfNull: Not [...] recognizeconcepts=true spantype=section suppressempty=false>History of Present Illness</span>
<span style=font-size:12px><spanstyle=font-family:[place],Helvetica,sans-serif><ol> <li>Patient reported that she has been anemic [...] she has heavy bleeding. 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
</li></ol></span></span>
<span class=clinicalNoteSectionVisible id=[id number] physician/internist albreaksection=false originalname=Interval History recognizeconcepts=true spantype=section suppressempty=false>Interval History</span>
[...] sumatriptan and topira mate</span>
<span class=clinicalNoteSectionVisible id=[id number] internalbreaksection=false originalname=Family History recognizeconcepts=true spantype=section suppressempty=false>Family History</span>
{ }

<span style=font-size:12px"><span style=font-family:[place],Helvetica,sans-serif></span></span>
<span class=clinicalNoteSectionVisible id=[id number]" internalbreaksection=false originalname=Social History recognizeconcepts =true spantype=section suppressempty=false>Social History< /span>
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

<span style=font-size:12px><span style=font-family:[place],Helvetica,sans-serif></span></span><span class=clinicalNoteSectionVisible id=[id number] internalbreaksection=false originalname=Vital Signs and Pain Scale" recognizeconcepts=true spantype=section suppressempty=false>Vital Signs</span>
<span class=clinicalNoteMacroWysiwyg id=[facility]_[id number] macroname=PatientVitalSigns parameters=LookBackDays:1,Va lueIfNull:Not recorded on visit [...]
== END 2025-09-28 13:36 | disposition home or self-care (01) ==
PROVIDERS: Emergency Provider Family Medicine; PCP Internal Medicine
DX: S01.81XA Laceration without foreign body of other part of head, initial encounter (principal); R51.9 Headache, unspecified; W20.8XXA Other cause of strike by thrown, projected or falling object, initial encounter
CPT/HCPCS: 12011; 70450; 99282; 99283; 99284